=== PATIENT | female | born 2000 | race Caucasian/White ===

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

== ENCOUNTER 2021-08-29 12:20 | Emergency (ER) | payer SELFPAY ==
--- OUTSIDE RECORDS SUMMARY | 2021-08-29 12:24 | XMS REPORT | Continuity of Care Document ---
:2000 Author Organization [facility] t Address [address] [place] [address] Care Team Providers Name Role Phone Elyssa Clement Primary Care Physician Vin BELL S Attending Clinician TOBI Attending Clinician Unavailable Pato MCGUIRE F Attending Clinician Doctor Unassigned, Name Attending Clinician Unavailable YOLY ESPARZA Attending Clinician Unavailable Elyssa Clement Attending Clinician Tobi RODRIGEZ Attending Clinician Yoly Esparza MD Attending Clinician Payers Payer Name Policy Type Policy Number Effective Date Expiration Date S ource Problems Condition Condition Condition Status Onset Resolution Last Treating Co mments Source Name Details Category Date Date Treatment Clinician Date Tinea Tinea Disease Active Univers corporis corporis 4-11 ity of 00:00: [address] Pyelonephr Pyelonephr Disease Active U dianeers itis itis 2-20 ity of 00:00: [address] Excessive Excessive Disease Active Uni vers 2-26 it y of bleeding bleeding 00:00: [address] 40 weeks 40 weeks Disease Active 2017- Unive rs gestation gestation 2-13 ity of of of 00:: [place] [address] [place] [address] Normal Normal Disease Active 2017- Univers labor and labor and 2-13 ity of delivery delivery 00:00: [address] Supervisio Supervisio Disease Active 2016-07 U nivers n of n of 0-09 ity of high-risk high[place] young of young Branch primigravi primigravi da da High risk High risk Disease Active 2016-07 Uni vers teen teen 0-09 [place] 00 Med[place] an[place] trimester trimester Bran ch Disease Active 2016-07 Unive rs care care 0-09 ity of insufficie insuffic[place] 00 Me dical trimester trimester Bran ch Allergies, Adverse Reactions, Alerts Allergy Allergy Status Severity Reaction(s) Onset Inactive Treating Comm ents Source Name Type Date Date Clinician Peanut Propensi Active Swelling 2018-07 Univer s Butter ty to 04 ity of Flavor adverse 00:00: [place] reaction 00 Medical s [place] PEANUT DRUG Active Swelling 2018-07 Univers BUTTER INGREDI 04 ity of FLAVOR 00:00: [place] 00 Medical Branch NO KNOWN Drug Active Univers ALLERGIE Class ity of S [facility] Social History Social Habit Start Date Stop Date Quantity Comments Source Exposure to Unable to assess Univers ity of SARS-CoV-2 [facility] [place] [facility] (event) [place] Tobacco use and 2020-06-21 2020-06-21 Never used Universit y of exposure 00:00:00 00:00:00 [facility] Alcohol intake 2020-06-21 2020-06-21 Current drinker [facility] rsity of 00:00:00 00:00:00 of alcohol [facility] [place] [facility] (finding) [place] Alcohol Comment 2019-04-25 2019-04-25 rare Universit y of 00:00:00 00:00:00 [facility] Sex Assigned At 2000 2000 Universit y of 00:00:00 00:00:00 [facility] Smoking Status Start Date Stop Date Source Never smoker [facility] Medical Branch Medications Ordered Filled Start Stop Current Ordering Indication Dosage Frequency Signature Comments Components Source Medication Medication Date Date Medication? Clinician (SIG) Name Name ondansetron 2020-0 2020- No 4mg 4 mg, Univ ers (ZOFRAN-ODT 03-28 Oral, ity of ) 20:15: 19:11 ONCE, 1 [place] disintegrat 00 :00 dose, Sat Med ical ing tablet 03/28/21 at [facility] 4 mg 1515, Routine ondansetron No 4mg 4 mg, Univ ers (ZOFRAN-ODT 03-28 Oral, ity of ) 20:15: 19:11 ONCE, 1 [place] disintegrat 00 :00 dose, Sat Med ical ing tablet 03/28/21 at [facility] 4 mg 1515, Routine ondansetron Yes [id number] 4mg Take 1 Univers (ZOFRAN 9-11 tablet by ity of ODT) 4 mg 00:00: mouth [place] disintegrat 00 every 8 Medic al ing tablet (eight) Branch hours as needed for Nausea and Vomiting (N/V). ondansetron Yes [id number] 4mg Take 1 Univers (ZOFRAN 9-11 tablet by ity of ODT) 4 mg 00:00: mouth [place] disintegrat 00 every 8 Medic al ing tablet (eight) Branch hours as needed for Nausea and Vomiting (N/V). acetaminoph 2019-07- No 1000mg 1,000 mg, Univers en 08-22 Oral, ity of (TYLENOL) 19:15: 19:02 ONCE, [place] tablet [place] :[place] dose, Sat Medical 1,000 mg 06/21/20 at [facility] h 1315, Routine ibuprofen 2019-07 No 600mg 600 mg, Uni vers (IBU) 08-22 Oral, ity of tablet 600 19:15: 19:02 ONCE, 1 [place] mg 00 :00 dose, [facility] Medical 06/21/20 at Branch 1315, SHAMAR ibuprofen 2019-07 Yes [id number] 600mg Take 1 Univers 600 mg 2-05 [id number] tablet by ity of tablet 00:00: mouth [place] 00 every 6 Medical (six) Branch hours as needed for Pain (scale 4-6). traMADoL 50 2019-07 Yes [id number] 50mg Take 1 Univ ers mg tablet 2-05 tablet by ity o f 00:00: mouth [place] 00 every 6 Medical (six) Branch hours as needed for Pain (scale 7-10). Indication s: acute pain ibuprofen 2019-07 Yes [id number] 600mg Take 1 Univers 600 mg 2-05 [id number] tablet by ity of tablet 00:00: mouth [place] 00 every 6 Medical (six) Branch hours as needed for Pain (scale 4-6). traMADoL 50 2019-07 Yes [id number] 50mg Take 1 Univ ers mg tablet 2-05 tablet by ity o f 00:00: mouth [place] 00 every 6 Medical (six) Branch hours as needed for Pain (scale 7-10). Indication s: acute pain ibuprofen 2019-07 Yes [id number] 600mg Take 1 Univers 600 mg 2-05 [id number] tablet by ity of tablet 00:00: mouth [place] 00 every 6 Medical (six) Branch hours as needed for Pain (scale 4-6). traMADoL 50 2019-07 Yes [id number] 50mg Take 1 Univ ers mg tablet 2-05 tablet by ity o f 00:00: mouth [place] 00 every 6 Medical (six) Branch hours as needed for Pain (scale 7-10). Indication s: acute pain phenazopyri 2018-07 Yes [id number] 200mg Take 1 Univers dine 200 mg 1-08 tablet by ity of tablet 00:00: mouth 3 [place] 00 (three) Medical times Branch daily. ondansetron 2018-07 Yes [id number] 4mg Take 1 Univers (ZOFRAN 1-08 tablet by ity of ODT) 4 mg 00:00: mouth [place] disintegrat 00 every 8 Medic al ing tablet (eight) Branch hours as needed for Nausea and Vomiting (N/V). phenazopyri 2018-07 Yes [id number] 200mg Take 1 Univers dine 200 mg 1-08 tablet by ity of tablet 00:00: mouth 3 [place] 00 (three) Medical times Branch daily. ondansetron 2018-07 Yes [id number] 4mg Take 1 Univers (ZOFRAN 1-08 tablet by ity of ODT) 4 mg 00:00: mouth [place] disintegrat 00 every 8 Medic al ing tablet (eight) Branch hours as needed for Nausea and Vomiting (N/V). phenazopyri 2018-07 Yes [id number] 200mg Take 1 Univers dine 200 mg 1-08 tablet by ity of tablet 00:00: mouth 3 [place] 00 (three) Medical times Branch daily. phenazopyri 2018-07 Yes [id number] 200mg Take 1 Univers dine 200 mg 1-08 tablet by ity of tablet 00:00: mouth 3 [place] 00 (three) Medical times Branch daily. ondansetron 2018-07- No [id number] 4mg Take 1 Univers (ZOFRAN 07-25 tablet by ity of ODT) 4 mg 00:00: 00:00 mouth [place] disintegrat 00 :00 every 8 Medic al ing tablet (eight) Branch hours as needed for Nausea and Vomiting (N/V). ondansetron 2018-07- No [id number] 4mg Take 1 Univers (ZOFRAN 07-25 tablet by ity of ODT) 4 mg 00:00: 00:00 mouth [place] disintegrat 00 :00 every 8 Medic al ing tablet (eight) Branch hours as needed for Nausea and Vomiting (N/V). fluoxetine 2018-07 Yes Take by Uni vers HCl (PROZAC 1-04 mouth. ity of ORAL) 18:54: [address] fluoxetine 2018-07 Yes Take by Uni vers HCl (PROZAC 1-04 mouth. ity of ORAL) 18:54: [address] fluoxetine 2018-07 Yes Take by Uni vers HCl (PROZAC 1-04 mouth. ity of ORAL) 18:54: [address] fluoxetine 2018-07 Yes Take by Uni vers HCl (PROZAC 1-04 mouth. ity of ORAL) 18:54: [address] fluticasone 2018-07 Yes [id number] 2{spray Use 2 Univers propionate 1-04 } Sprays in ity of 50 00:00: each [place] mcg/actuati 00 nostril Medic al on nasal daily. [place] spray fluticasone 2018-07 Yes [id number] 2{spray Use 2 Univers propionate 1-04 } Sprays in ity of 50 00:00: each [place] mcg/actuati 00 nostril Medic al on nasal daily. [place] spray fluticasone 2018-07 Yes [id number] 2{spray Use 2 Univers propionate 1-04 } Sprays in ity of 50 00:00: each [place] mcg/actuati 00 nostril Medic al on nasal daily. [place] spray fluticasone 2018-07 Yes [id number] 2{spray Use 2 Univers propionate 1-04 } Sprays in ity of 50 00:00: each [place] mcg/actuati 00 nostril Medic al on nasal daily. [place] spray ARIPiprazol 2018-07 Yes 10mg Take 10 mg Univers e 10 mg 1-01 by mouth ity of tablet 00:00: daily. [facility] ARIPiprazol 2018-07 Yes 10mg Take 10 mg Univers e 10 mg 1-01 by mouth ity of tablet 00:00: daily. [facility] ARIPiprazol 2018-07 Yes 10mg Take 10 mg Univers e 10 mg -01 by mouth ity of tablet 00:00: daily. [place] [facility] ARIPiprazol 2018-07 Yes 10mg Take 10 mg Univers e 10 mg -01 by mouth ity of tablet 00:00: daily. [place] [facility] estradiol 1 2018-07 Yes [id number] 1mg Take 1 Univers mg tablet 0-09 tablet by ity o f 00:00: mouth 00 daily. [facility] estradiol 1 2018-07 Yes [id number] 1mg Take 1 Univers mg tablet 0-09 tablet by ity o f 00:00: mouth 00 daily. [facility] estradiol 1 2018-07 Yes [id number] 1mg Take 1 Univers mg tablet 0-09 tablet by ity o f 00:00: mouth 00 daily. [facility] estradiol 1 2018-07 Yes [id number] 1mg Take 1 Univers mg tablet 0-09 tablet by ity o f 00:00: mouth 00 daily. [facility] SERTraline Yes [id number] Take 1 tab Univers (ZOLOFT) 50 9-25 po daily ity of mg tablet 00:00: [address] SERTraline Yes [id number] Take 1 tab Univers (ZOLOFT) 50 9-25 po daily ity of mg tablet 00:00: [address] SERTraline Yes [id number] Take 1 tab Univers (ZOLOFT) 50 9-25 po daily ity of mg tablet 00:00: [address] SERTraline Yes [id number] Take 1 tab Univers (ZOLOFT) 50 9-25 po daily ity of mg tablet 00:00: [address] SERTraline Yes [id number] Take 1/2 Univers (ZOLOFT) 50 8-20 tab po ity of mg tablet 00:00: daily x 1 [place] 00 week, then Medical [facility] Branch to 1 tab po daily SERTraline Yes [id number] Take 1/2 Univers (ZOLOFT) 50 8-20 tab po ity of mg tablet 00:00: daily x 1 [place] 00 week, then [facility] to 1 tab po daily clindamycin 2019- No [id number] 1{appli Insert 1 Univers 2 % cream 03-05 cator} Applicator i ty of 00:00: 04:59 into [place] 00 :00 vagina at [facility] for 7 days. clindamycin 2019- No [id number] 1{appli Insert 1 Univers 2 % cream 03-05 cator} Applicator i ty of 00:00: 04:59 into [place] 00 :00 vagina at [facility] for 7 days. clindamycin 2019- No [id number] 1{appli Insert 1 Univers 2 % cream 03-05 cator} Applicator i ty of 00:00: 04:59 into [place] 00 :00 vagina at [facility] for 7 days. clindamycin 2019- No [id number] 1{appli Insert 1 Univers 2 % cream 03-05 cator} Applicator i ty of 00:00: 04:59 into [place] 00 :00 vagina at [facility] for 7 days. etonogestre Yes 68mg 68 mg by Un jazlyn l 6-24 Subdermal ity of (NEXPLANON) 21:21: route once [place] 68 mg 07 now. Medical implant Branch etonogestre Yes 68mg 68 mg by Un jazlyn l 6-24 Subdermal ity of (NEXPLANON) 21:21: route once [place] 68 mg 07 now. Medical implant Branch etonogestre Yes 68mg 68 mg by Un jazlyn l 6-24 Subdermal ity of (NEXPLANON) 21:21: route once [place] 68 mg 07 now. Medical implant Branch etonogestre Yes 68mg 68 mg by Un jazlyn l 6-24 Subdermal ity of (NEXPLANON) 21:21: route once [place] 68 mg 07 now. Medical implant Branch etonogestre Yes 68mg 68 mg by Un jazlyn l 6-24 Subdermal ity of (NEXPLANON) 21:21: route once [place] 68 mg 07 now. Medical implant Branch etonogestre Yes 68mg 68 mg by Un jazlyn l 6-24 Subdermal ity of (NEXPLANON) 21:21: route once [place] 68 mg 07 now. Medical implant Branch etonogestre 2018-0 Yes 68mg 68 mg by Un jazlyn l 6-24 Subdermal ity of (NEXPLANON) 21:21: route once [place] 68 mg 07 now. Medical implant Branch etonogestre Yes 68mg 68 mg by Un jazlyn l 6-24 Subdermal ity of (NEXPLANON) 21:21: route once [place] 68 mg 07 now. Medical implant Branch etonogestre Yes 68mg 68 mg by Un jazlyn l 6-24 Subdermal ity of (NEXPLANON) 21:21: route once [place] 68 mg 07 now. Medical implant Branch etonogestre Yes 68mg 68 mg by Un jazlyn l 6-24 Subdermal ity of (NEXPLANON) 21:21: route once [place] 68 mg 07 now. Medical implant Branch etonogestre Yes 68mg 68 mg by Un jazlyn l 6-24 Subdermal ity of (NEXPLANON) 21:21: route once [place] 68 mg 07 now. Medical implant Branch ibuprofen Yes [id number] 800mg Take 1 Univers 800 mg 6-12 tablet by ity of tablet 00:00: mouth [place] 00 every 8 Medical (eight) Branch hours as needed (PAIN). Nitrofurant Yes [id number] 100mg Take 1 Univers oin&Nit. 6-12 capsule by ity o f [place] 00:00: mouth 2 [place] (MACROBID) 00 (two) Medical 100 mg times Branch capsule daily. ibuprofen Yes [id number] 800mg Take 1 Univers 800 mg 6-12 tablet by ity of tablet 00:00: mouth [place] 00 every 8 Medical (eight) Branch hours as needed (PAIN). Nitrofurant Yes [id number] 100mg Take 1 Univers oin&Nit. 6-12 capsule by ity o f [place] 00:00: mouth 2 [place] (MACROBID) 00 (two) Medical 100 mg times Branch capsule daily. ibuprofen Yes [id number] 800mg Take 1 Univers 800 mg 6-12 tablet by ity of tablet 00:00: mouth [place] 00 every 8 Medical (eight) Branch hours as needed (PAIN). Nitrofurant Yes [id number] 100mg Take 1 Univers oin&Nit. 6-12 capsule by ity o f [place] 00:00: mouth 2 [place] (MACROBID) 00 (two) Medical 100 mg times Branch capsule daily. ibuprofen Yes [id number] 800mg Take 1 Univers 800 mg 6-12 tablet by ity of tablet 00:00: mouth [place] 00 every 8 Medical (eight) Branch hours as needed (PAIN). Nitrofurant Yes [id number] 100mg Take 1 Univers oin&Nit. 6-12 capsule by ity o f [place] 00:00: mouth 2 [place] (MACROBID) 00 (two) Medical 100 mg times Branch capsule daily. ibuprofen Yes [id number] 800mg Take 1 Univers 800 mg 6-12 tablet by ity of tablet 00:00: mouth [place] 00 every 8 Medical (eight) Branch hours as needed (PAIN). Nitrofurant Yes [id number] 100mg Take 1 Univers oin&Nit. 6-12 capsule by ity o f [place] 00:00: mouth 2 [place] (MACROBID) 00 (two) Medical 100 mg times Branch capsule daily. ibuprofen 2019- No [id number] 800mg Take 1 Univers 800 mg 6-12 08-20 tablet by ity of tablet 00:00: 00:00 mouth [place] 00 :00 every 8 Medical (eight) Branch hours as needed (PAIN). Nitrofurant 2019- No [id number] 100mg Take 1 Univers oin&Nit. 6-12 08-20 capsule by ity of [place] 00:00: 00:00 mouth 2 [place] (MACROBID) 00 :00 (two) Medical 100 mg times Branch capsule daily. ibuprofen 2019- No [id number] 800mg Take 1 Univers 800 mg 6-12 08-20 tablet by ity of tablet 00:00: 00:00 mouth [place] 00 :00 every 8 Medical (eight) Branch hours as needed (PAIN). Nitrofurant 2019- No [id number] 100mg Take 1 Univers oin&Nit. 6-12 08-20 capsule by ity of [place] 00:00: 00:00 mouth 2 [place] (MACROBID) 00 :00 (two) Medical 100 mg times Branch capsule daily. metroNIDAZO 2018- Yes [id number] 500mg Take 1 Univers LE 500 mg 6-11 tablet by ity o f tablet 00:00: mouth [place] 00 every 12 Medical (twelve) Branch hours. metroNIDAZO 2018- Yes [id number] 500mg Take 1 Univers LE 500 mg 6-11 tablet by ity o f tablet 00:00: mouth [place] 00 every 12 Medical (twelve) Branch hours. metroNIDAZO 2018- Yes [id number] 500mg Take 1 Univers LE 500 mg 6-11 tablet by ity o f tablet 00:00: mouth [place] 00 every 12 Medical (twelve) Branch hours. metroNIDAZO 2018- Yes [id number] 500mg Take 1 Univers LE 500 mg 6-11 tablet by ity o f tablet 00:00: mouth [place] 00 every 12 Medical (twelve) Branch hours. metroNIDAZO 2018- Yes [id number] 500mg Take 1 Univers LE 500 mg 6-11 tablet by ity o f tablet 00:00: mouth [place] 00 every 12 Medical (twelve) Branch hours. metroNIDAZO 2019- No [id number] 500mg Take 1 Univers LE 500 mg 6-11 08-20 tablet by ity of tablet 00:00: 00:00 mouth [place] 00 :00 every 12 Medical (twelve) Branch hours. metroNIDAZO 2019- No [id number] 500mg Take 1 Univers LE 500 mg 6-11 08-20 tablet by ity of tablet 00:00: 00:00 mouth [place] 00 :00 every 12 Medical (twelve) Branch hours. estradiol 1 Yes 1mg Take 1 Univ ers mg tablet 5-07 tablet by ity o f 00:00: mouth [place] 00 daily. Medical Branch estradiol 1 2018- Yes 1mg Take 1 Univ ers mg tablet 5-07 tablet by ity o f 00:00: mouth [place] 00 daily. Medical Branch estradiol 1 Yes 1mg Take 1 Univ ers mg tablet 5-07 tablet by ity o f 00:00: mouth [place] 00 daily. Medical Branch estradiol 1 Yes 1mg Take 1 Univ ers mg tablet 5-07 tablet by ity o f 00:00: mouth [place] 00 daily. Medical Branch estradiol 1 2018- Yes 1mg Take 1 Univ ers mg tablet 5-07 tablet by ity o f 00:00: mouth [place] 00 daily. Medical Branch estradiol 1 2019- No 1mg Take 1 Uni vers mg tablet 5-07 08-20 tablet by ity of 00:00: 00:00 mouth [place] 00 :00 daily. Medical Branch estradiol 1 2019- No 1mg Take 1 Uni vers mg tablet 5-07 08-20 tablet by ity of 00:00: 00:00 mouth [place] 00 :00 daily. Medical Branch ferrous 2017-0 Yes 325mg Take 1 Univers sulfate 325 2-15 tablet by ity of mg (65 mg 00:00: mouth 2 [place] iron) 00 (two) Medical tablet times Branch daily. ferrous 2018-0 Yes 325mg Take 1 Univers sulfate 325 2-15 tablet by ity of mg (65 mg 00:00: mouth 2 [place] iron) 00 (two) Medical tablet times Branch daily. ferrous 2017-0 Yes 325mg Take 1 Univers sulfate 325 2-15 tablet by ity of mg (65 mg 00:00: mouth 2 [place] iron) 00 (two) Medical tablet times Branch daily. ferrous 2018-0 Yes 325mg Take 1 Univers sulfate 325 2-15 tablet by ity of mg (65 mg 00:00: mouth 2 [place] iron) 00 (two) Medical tablet times Branch daily. ferrous 2017-0 Yes 325mg Take 1 Univers sulfate 325 2-15 tablet by ity of mg (65 mg 00:00: mouth 2 [place] iron) 00 (two) Medical tablet times Branch daily. ferrous 2017- 2019- No 325mg Take 1 Univer s sulfate 325 2-15 08-20 tablet by it y of mg (65 mg 00:00: 00:00 mouth [place] iron) 00 :00 (two) Medical tablet times Branch daily. ferrous 2017-0 2019- No 325mg Take 1 Univer s sulfate 325 2-15 08-20 tablet by it y of mg (65 mg 00:00: 00:00 mouth 2 [place] iron) 00 :00 (two) Medical tablet times Branch daily. Immunizations Ordered Filled Immunization Date Status Comments [facility] e Immunization Name Name Influenza Virus 2019-04-25 Completed Universit y of Vaccine Quad .5 mL 00:00:00 [place] Medical IM 6+ MO Branch Influenza Virus 2019-04-25 Completed Universit y of Vaccine Quad .5 mL 00:00:00 [place] Medical IM 6+ MO Branch Influenza Virus 2019-04-25 Completed Universit y of Vaccine Quad .5 mL 00:00:00 [place] Medical IM 6+ MO Branch Influenza Virus 2019-04-25 Completed Universit y of Vaccine Quad .5 mL 00:00:00 [place] Medical IM 6+ MO Branch Influenza Virus 2018-11-07 Completed Universit y of Vaccine Quad .5 mL 00:00:00 [place] Medical IM 6+ MO Branch Influenza Virus 2018-11-07 Completed Universit y of Vaccine Quad .5 mL 00:00:00 [place] Medical IM 6+ MO Branch Influenza Virus 2018-11-07 Completed Universit y of Vaccine Quad .5 mL 00:00:00 [place] Medical IM 6+ MO Branch Influenza Virus 2018-11-07 Completed Universit y of Vaccine Quad .5 mL 00:00:00 [place] Medical IM 6+ MO Branch Influenza Virus 2018-11-07 Completed Universit y of Vaccine Quad .5 mL 00:00:00 [place] Medical IM 6+ MO Branch Influenza Virus 2018-11-07 Completed Universit y of Vaccine Quad .5 mL 00:00:00 [place] Medical IM 6+ MO Branch Influenza Virus 2018-11-07 Completed Universit y of Vaccine Quad .5 mL 00:00:00 [place] Medical IM 6+ MO Branch Influenza Virus 2018-11-07 Completed Universit y of Vaccine Quad .5 mL 00:00:00 [place] Medical 6+ MO Branch Influenza Virus 2018-11-07 Completed Universit y of Vaccine Quad .5 mL 00:00:00 [place] Medical IM 6+ MO Branch Influenza Virus 2018-11-07 Completed Universit y of Vaccine Quad .5 mL 00:00:00 [place] Medical IM 6+ MO Branch Influenza Virus 2018-11-07 Completed Universit y of Vaccine Quad .5 mL 00:00:00 [place] Medical 6+ MO Branch Tdap 2017-06-13 Completed University of 00:00:00 [facility] Tdap 2017-06-13 Completed University of 00:00:00 [facility] Tdap 2017-06-13 Completed University of 00:00:00 [facility] Tdap 2017-06-13 Completed University of 00:00:00 [facility] Tdap 2017-06-13 Completed University of 00:00:00 [facility] TDAP 2017-06-13 Completed University of 00:00:00 [facility] TDAP 2017-06-13 Completed University of 00:00:00 [facility] TDAP 2017-06-13 Completed University of 00:00:00 [facility] TDAP 2017-06-13 Completed University of 00:00:00 [facility] Tdap 2017-06-13 Completed University of 00:00:00 [facility] Tdap 2017-06-13 Completed University of 00:00:00 [facility] Influenza Virus 2017-05-23 Completed Universit y of Vaccine Quad IM 3+ 00:00:00 [facility] Influenza Virus 2017-05-23 Completed Universit y of Vaccine Quad IM 3+ 00:00:00 [facility] Influenza Virus 2017-05-23 Completed Universit y of Vaccine Quad IM 3+ 00:00:00 [facility] Influenza Virus 2017-05-23 Completed Universit y of Vaccine Quad IM 3+ 00:00:00 [facility] Influenza Virus 2017-05-23 Completed Universit y of Vaccine Quad IM 3+ 00:00:00 [facility] Influenza Virus 2017-05-23 Completed Universit y of Vaccine Quad IM 3+ 00:00:00 [facility] Influenza Virus 2017-05-23 Completed Universit y of Vaccine Quad IM 3+ 00:00:00 [facility] Influenza Virus 2017-05-23 Completed Universit y of Vaccine Quad IM 3+ 00:00:00 [facility] Influenza Virus 2017-05-23 Completed Universit y of Vaccine Quad IM 3+ 00:00:00 [facility] Influenza Virus 2017-05-23 Completed Universit y of Vaccine Quad IM 3+ 00:00:00 [facility] Influenza Virus 2017-05-23 Completed Universit y of Vaccine Quad IM 3+ 00:00:00 [facility] Vital Signs Vital Name Observation Time Observation Value Comments Source Systolic blood 2021-03-28 19:06:00 108 mm[Hg] Univer sity of pressure [facility] Diastolic blood 2021-03-28 19:06:00 70 mm[Hg] Unive rsity of pressure [facility] Heart rate 2021-03-28 19:06:00 73 /min Universi ty of [facility] Body temperature 2021-03-28 19:06:00 37.44 [place] Univ ersity of [place] [facility] Respiratory rate 2021-03-28 19:06:00 20 /min Univ ersity of [place] [facility] Body weight 2021-03-28 19:06:00 76.204 kg Universi ty of [place] [facility] Oxygen saturation in 2021-03-28 19:06:00 97 /min University of Arterial blood by [facility] Pulse oximetry Branch Systolic blood 2020-06-21 17:26:00 106 mm[Hg] Univer sity of pressure [place] [facility] Diastolic blood 2020-06-21 17:26:00 53 mm[Hg] Unive rsity of pressure [place] [facility] Heart rate 2020-06-21 17:26:00 65 /min Universi ty of [place] [facility] Body temperature 2020-06-21 17:26:00 36.89 [place] Univ ersity of [place] [facility] Respiratory rate 2020-06-21 17:26:00 18 /min Univ ersity of [place] [facility] Body weight 2020-06-21 17:26:00 65.772 kg Universi ty of [place] [facility] Oxygen saturation in 2020-06-21 17:26:00 100 /min University of Arterial blood by [facility] Pulse oximetry Branch Systolic blood 2019-03-06 19:00:00 104 mm[Hg] Univer sity of pressure [place] [facility] Diastolic blood 2019-03-06 19:00:00 61 mm[Hg] Unive rsity of pressure [place] [facility] Heart rate 2019-03-06 19:00:00 66 /min Universi ty of [place] [facility] Body temperature 2019-03-06 19:00:00 36.78 [place] Univ ersity of [place] [facility] Body height 2019-03-06 19:00:00 154.9 cm Universi ty of [place] [facility] Body weight 2019-03-06 19:00:00 54.432 kg Universi ty of [place] [facility] BMI 2019-03-06 19:00:00 22.67 kg/m2 Universi ty of [place] [facility] Systolic blood 2019-03-01 14:27:00 98 mm[Hg] Univer sity of pressure [place] [facility] Diastolic blood 2019-03-01 14:27:00 60 mm[Hg] Unive [facility]ity [facility] Heart rate 2019-03-01 14:27:00 60 /min [facility] Body temperature 2019-03-01 14:27:00 36.5 [facility] Respiratory rate 2019-03-01 14:27:00 18 /min [facility] Body height 2019-03-01 14:27:00 154.9 cm [facility] Body weight 2019-03-01 14:27:00 55.792 kg [facility] BMI 2019-03-01 14:27:00 23.24 kg/m2 [facility] Procedures Procedure Date / Time Performed Performing Clinician [facility] e ASSIGNMENT OF BENEFITS 2021-03-28 19:37:53 Doctor Unassigned, No [facility] Name Medical Branch COVID-19 (ID NOW RAPID 2021-03-28 19:11:00 Avis Banuelos [facility] TESTING) Medical Branch CONSENT/REFUSAL FOR 2021-03-28 18:59:12 Doctor Unassigned, No [facility] Branch TREATMENT POCT TEST 2020-06-21 19:01:00 Charlene Whyte [facility] XR ANKLE 3+ VW RIGHT 2020-06-21 18:06:[address] [facility] XR FOOT 3+ VW RIGHT 2020-06-21 18:06:[address] [facility] CONSENT/REFUSAL FOR 2020-06-21 17:14:39 Doctor Unassigned, No [facility] AND Name Medical Branch TREATMENT NOTICE OF PRIVACY 2020-06-21 17:14:21 Doctor Unassigned, No [facility] Medical [place] POCT TEST 2019-03-06 19:44:[address] [facility] POCT URINALYSIS W/O 2019-03-01 00:00:00 Karla Britton [facility] SPECIFIC GRAVITY Medical Branch Encounters Start End Encounter Admission Attending Care Care Encounter Source Date/Time Date/Time Type Type Clinicians Facility Department ID 2021-05-18 Emergency [facility] [id number] [facility]-16 Emergency [facility] [id number] Univers 09:26:29 ity of [facility] 2021-03-28 2021-03-28 Emergency [facility] [id number] Univers 14:12:00 16:13:00 Avis S [place] [id number] i ty of [place] [id number] [facility] [id number] [address] 2020-08-20 2020-08-20 Outpatient Phani BRITTON [facility] [id number] Univers 14:30:00 14:30:00 [facility] [id number] [facility] 2020-08-20 2020-08-20 Outpatient Phani BRITTON [facility] [id number] Univers 14:30:00 14:30:00 KARLA [facility] 2020-07-31 2020-07-31 Outpatient Phani BRITTON [facility] [id number] Univers 13:00:00 13:00:00 KARLA [id number] [facility] 2020-07-31 2020-07-31 Outpatient Phani BRITTON [facility] [id number] Univers 13:00:00 13:00:00 [facility] 2020-06-21 2020-06-21 Emergency [facility] [id number] Univers 11:46:00 13:39:00 Charlene Corral [id number] ity of [place] [id number] [facility] [id number] [address] 2020-06-21 2020-06-21 Orders Doctor DAVI [id number] Univers 00:00:00 00:00:00 Only Unassigned, IESHA [id number] [facility] [id number] [place] [id number] [address] 2020-05-28 2020-05-28 Outpatient Phani BRITTON [facility] [id number] Univers 13:30:00 13:30:00 KARLA [id number] [facility] 2020-05-28 2020-05-28 Outpatient Phani BRITTON [facility] [id number] Univers 13:30:00 13:30:[address] [facility] 2020-05-01 2020-05-01 Outpatient R CAROLYNN ESPARZA [facility] [id number] Univers 09:30:00 09:30:00 [id number] ity of [facility] 2020-05-01 2020-05-01 Outpatient R CAROLYNN ESPARZA [facility] [id number] Univers 09:30:00 09:30:00 ity of [facility] 2020-04-30 2020-04-30 Outpatient R TOBI [facility] [id number] Univers 08:30:00 08:30:[id number] [facility] 2020-04-30 2020-04-30 Outpatient R TOBI [facility] [id number] Univers 08:30:00 08:30:00 KARLA [facility] 2020-04-28 2020-04-28 Outpatient R CAROLYNN ESPARZA [facility] [id number] Univers 15:15:00 15:15:[id number] [facility] 2020-04-28 2020-04-28 [facility] [id number] Univers 15:15:00 15:15:[address] [facility] 2020-04-25 2020-04-25 Outpatient R TOBI [facility] [id number] Univers 10:30:00 10:30:00 KARLA [facility] 2020-04-03 2020-04-03 Outpatient CAROLYNN WILSON [facility] [id number]-20 Univers 09:30:00 09:30:00 [id number] [facility] 2019-03-06 2019-03-06 Office [facility] [id number] Univers 13:43:15 14:49:14 Visit Marley Calderón [id number] [place] [id number] [place] as Niels [id number] [address] Office [facility] 2019-03-05 2019-03-05 Case Tobi [facility] [id number] Univers 00:00:00 00:00:00 Management Karla [place] [id number] [id number] [id number] [place] dicid nal 134 [facility] 2019-03-05 2019-03-05 Telephone Carolynn Esparza [facility] [id number] Univers 00:00:00 00:00:00 Yoly [place] [id number] [id number] [id number] [address] 2019-03-01 2019-03-01 Office Tobi [facility] [id number] [facility] 08:58:15 09:51:29 Visit Karla [place] [id number] [id number] [id number] [address] Results Test Description Test Time Test Comments Results Result Comments Source COVID-19 (ID NOW RAPID TESTING) 2021-03-28 20:26:42 Test Item Value Reference Range Interpretation Comme nts SARS-CoV-2 Rapid ID NOW (test code Not Detected Not Detected = 24015-1) ENE (test code = ENE) ID NOW COVID-19 Assay is an isothermal nucleic acid amplification test intended for the qualitative detection of nucleic acid from SARS-CoV-2 viral RNA in nasopharyngeal (SPANISH INTERPRETER/TRANSLATOR) specimens. It is used under Emergency Use Authorization (EUA) by FDA. The limit of detection (LOD) of the assay is 125 Genome Equivalents/mL. A positive result is indicative of the presence of SARS-CoV-2 RNA. ?Clinical correlation with patient history and other diagnostic information is necessary to determine patient infection status. A negative (Not Detected) result does not preclude SARS-CoV-2 infection. In patients with a high suspicion of SARS-CoV-2 infection, negative results should be treated as presumptive negative and a new specimen should be tested with alternative nucleic acid amplification molecular test. Invalid: Please collect a new specimen for repeat patient testing if clinically indicated. Lab Interpretation (test code = Normal 63939-2) [facility] NOW RAPID TESTING)2021-03-28 20:26:42 Test Item Value Reference Range Interpretation Comments SARS-CoV-2 Rapid ID NOW Not Detected Not Detected (test code = 73380-8) ENE (test code = ENE) ID NOW COVID-19 Assay is an isothermal nucleic acid amplification test intended for the qualitative detection of nucleic acid from SARS-CoV-2 viral RNA in nasopharyngeal (SPANISH INTERPRETER/TRANSLATOR) specimens. It is used under Emergency Use Authorization (EUA) by FDA. The limit of detection (LOD) of the assay is 125 Genome Equivalents/mL. A positive result is indicative of the presence of SARS-CoV-2 RNA. ?Clinical correlation with patient history and other diagnostic information is necessary to determine patient infection status. A negative (Not Detected) result does not preclude SARS-CoV-2 infection. In patients with a high suspicion of SARS-CoV-2 infection, negative results should be treated as presumptive negative and a new specimen should be tested with alternative nucleic acid amplification molecular test. Invalid: Please collect a new specimen for repeat patient testing if clinically indicated. Lab Interpretation Normal (test code = 11395-7) [facility] [id number] 19:01:00 Test Item Value Reference Range Interpretation Comments POCT PREG (test code = 1605) negative On board controls acceptable with positive C Line (test code = 3574) POCT PREG LOT # (test code = 3575) [id number] POCT PREG TEST DATE (test 10-15-2021 code = 3576) Lab Interpretation (test code = Normal 67384-5) [facility] Hospital[facility] 3+ VW [id number] 18:26:05 Mild alteration of the ankle mortise which may relate to ligamentousincompetency with lateral swelling. No acute fractures. EXAM: XR FOOT 3+ VW RIGHT, EXAM: XR ANKLE 3+ VW RIGHT HISTORY: pain and tenderness COMPARISON: None FINDINGS: Imaging of the foot and ankle demonstrates mild widening of the lateraltibial talar joint with with varus angulation. Borderline syndesmoticwidening is seen. No effusion ?is seen at the ankle. Minimal lateral ankleswelling is seen. Minimal plantar calcaneal enthesophyte formation ispresent. A small plantar calcaneal enthesophyte is present. Bipartitetibial sided hallux sesamoid morphology is present. [facility], Radiant Results Inft User - 06/21/2020 12:27 PM CSTEXAM:XR FOOT 3+ VW RIGHT,EXAM:XR ANKLE 3+ VW RIGHTHISTORY:pain and tenderness COMPARISON:NoneFINDINGS: Imaging of the foot and ankle demonstrates mild widening of the lateraltibial talar joint with with varus angulation. Borderline syndesmoticwidening is seen. No effusion is seen at the ankle. Minimal lateral ankleswelling is seen. Minimal plantar calcaneal enthesophyte formation ispresent. A small plantar calcaneal enthesophyte is present. Bipartitetibial sided hallux sesamoid morphology is present.IMPRESSIONMild alteration of the ankle mortise which may relate to ligamentousincompetency with lateral swell ing.No acute fractures.[facility] 3+ VW RIGHT 2020-06-21 18:26:05 Mild alteration of the ankle mortise which may relate to ligamentousincompetency with lateral swelling. No acute fractures. EXAM: XR FOOT 3+ VW RIGHT, EXAM: XR ANKLE 3+ VW RIGHT HISTORY: pain and tenderness COMPARISON: None FINDINGS: Imaging of the foot and ankle demonstrates mild widening of the lateraltibial talar joint with with varus angulation. Borderline syndesmoticwidening is seen. No effusion ?is seen at the ankle. Minimal lateral ankleswelling is seen. Minimal plantar calcaneal enthesophyte formation ispresent. A small plantar calcaneal enthesophyte is present. Bipartitetibial sided hallux sesamoid morphology is present. [facility] [[email or web address]], Radiant Results Inft User - 06/21/2020 12:27 PM CSTEXAM:XR FOOT 3+ VW RIGHT,EXAM:XR ANKLE 3+ VW RIGHTHISTORY:pain and tenderness COMPARISON:NoneFINDINGS: Imaging of the foot and ankle demonstrates mild widening of the lateraltibial talar joint with with varus angulation. Borderline syndesmoticwidening is seen. No effusion is seen at the ankle. Minimal lateralankleswelling is seen. Minimal plantar calcaneal enthesophyte formation ispresent. A small plantar calcaneal enthesophyte is present. Bipartitetibial sided hallux sesamoid morphology is present.IMPRESSI ONMild alteration of the ankle mortise which may relate to ligamentousincompetency with lateral swelling.No acute fractures.[facility] [id number] 19:48:00 Test Item Value Reference Range Interpretation Comments POCT PREG (test code = 1605) Negative On board controls acceptable with Yes C Line (test code = 3574) POCT PREG LOT # (test code = 3575) POCT PREG TEST DATE (test 10/07/2019 code = 3576) Lab Interpretation (test code = Normal 55448-4) [facility] [id number] 19:48:00 Test Item Value Reference Range Interpretation Comments POCT PREG (test code = 1605) Negative On board controls acceptable with Yes C Line (test code = 3574) POCT PREG LOT # (test code = 3575) POCT PREG TEST DATE (test 10/07/2019 code = 3576) Lab Interpretation (test code = Normal 90390-7) [facility] URINALYSIS W/O SPECIFIC [id number] 14:38:00 Test Item Value Reference Range Interpretation Comments POCT PH U (test code = 3254) 5 mg/dl 5-8 POCT U LEUK EST (test code = negative Negative - Negative 3263) POCT U NIT (test code = 3262) negative Negative - Negative POCT U PROT (test code = 3259) negative Negative - Negative POCT U GLU (test code = 3256) negative Negative - Negative POCT U KETONE (test code = 3258) negative Negative - Negative POCT U BLD (test code = 3257) negative Negative - Negative [facility] URINALYSIS W/O SPECIFIC [id number] 14:38:00 Test Item Value Reference Range Interpretation Comments POCT PH U (test code = 3254) 5 mg/dl 5-8 POCT U LEUK EST (test code = negative Negative - Negative 3263) POCT U NIT (test code = 3262) negative Negative - Negative POCT U PROT (test code = 3259) negative Negative - Negative POCT U GLU (test code = 3256) negative Negative - Negative POCT U KETONE (test code = 3258) negative Negative - Negative POCT U BLD (test code = 3257) negative Negative - Negative [facility] URINALYSIS W/O SPECIFIC [id number] 14:38:00 Test Item Value Reference Range Interpretation Comments POCT PH U (test code = 3254) 5 mg/dl 5-8 POCT U LEUK EST (test code = negative Negative - Negative 3263) POCT U NIT (test code = 3262) negative Negative - Negative POCT U PROT (test code = 3259) negative Negative - Negative POCT U GLU (test code = 3256) negative Negative - Negative POCT U KETONE (test code = 3258) negative Negative - Negative POCT U BLD (test code = 1067) negative Negative - Negative [facility]
[2021-08-29] MEDS ORDERED: METOCLOPRAMIDE 10 MG/2mL INJ ONE (12:53)
[2021-08-29] MEDS ORDERED: DIPHENHYDRAMINE 50 MG/ML VIAL ONE (12:54)
[2021-08-29] MEDS ORDERED: NA CHLORIDE 0.9% 1,000 ML ONE (12:54)
[2021-08-29 13:10] LABS: Urine Blood Trace-intact (Negative); Urine Glucose Negative (Negative); Urine Protein Negative (Negative); Urine pH 6.5 (5.0-7.0)
[2021-08-29 13:12] LABS: Absolute Lymphocytes (CBC) 1.2 K/uL (0.7-4.9); Hematocrit 41.6 % (36.0-45.0); Lymphocytes % 15.7 % (15.3-44.8); MPV 8.9 fL (7.6-11.3); RBC Red Blood Cell Count 4.81 M/uL (3.86-4.86)
[2021-08-29 13:48] LABS: ALT/SGPT 18 U/L (12-78); AST/SGOT 12 U/L (15-37); Albumin 3.8 g/dL (3.4-5.0); Alkaline Phosphatase 69 U/L (45-117); BUN Blood Urea Nitrogen 6 mg/dL (7-18); Bicarbonate 23 mmol/L (21-32); Bilirubin Direct < 0.1 mg/dL (0-0.2); Bilirubin Total 0.4 mg/dL (0.2-1.0); Glucose Level 78 mg/dL (74-106); Lipase 63 U/L (73-393); Potassium 3.8 mmol/L (3.5-5.1); Protein, Total 7.5 g/dL (6.4-8.2); Sodium Level 136 mmol/L (136-145)
--- NOTE | 2021-08-29 15:45 | EDPHYS ---
Physician Documentation [facility] Name: Mckenzie Wang Age: 21 yrs Sex: Female : 2000 Arrival Date: 08/29/2021 Time: 12:23 Bed 17 Private MD: ED Physician Chris Jay HPI: 08/29 12:47 This 21 yrs old Female presents to ER via Ambulatory with complaints of Vomiting, 9 jmm Weeks . 12:47 The patient presents to the emergency department with nausea, vomiting. Onset: The jmm symptoms/episode began/occurred gradually, 1 week(s) ago. Possible causes: . The symptoms are aggravated by nothing. The symptoms are alleviated by nothing. Associated signs and symptoms: Pertinent negatives: abdominal pain, dysuria, fever, vaginal discharge. This is a 21-year-old female approximately 9 weeks the presents emerged department with complaints of vomiting beginning about a week ago. Patient denies diarrhea. Denies abdominal pain, denies vaginal discharge or bleeding.. 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 - Social history:: Smoking status: Patient denies any tobacco usage or history of. ROS: 12:47 Constitutional: Negative for fever, chills, and weight loss, Cardiovascular: Negative jmm for chest pain, palpitations, and edema, Respiratory: Negative for shortness of breath, cough, wheezing, and pleuritic chest pain. 12:47 Abdomen/GI: Positive for vomiting. 12:47 All other systems are negative. Exam: 12:47 Constitutional: This is a well developed, well nourished patient who is awake, alert, jmm and in no acute distress. Head/Face: atraumatic. Eyes: EOMI, no conjunctival erythema appreciated ENT: Moist Mucus Membranes Neck: Trachea midline, Supple Chest/axilla: Normal chest wall appearance and motion. Cardiovascular: Regular rate and rhythm. No edema appreciated Respiratory: Normal respirations, no respiratory distress appreciated Abdomen/GI: Non distended, soft Back: Normal ROM Skin: General appearance color normal MS/ Extremity: Moves all extremities, no obvious deformities appreciated, no edema noted to the lower extremities Neuro: Awake and alert Psych: Behavior is normal, Mood is normal, Patient is cooperative and pleasant Vital Signs: 12:31 BP 110 / 62; Pulse 59; Resp 18; Temp 97.9; Pulse Ox 100% on R/A; Weight 77.11 kg; ph Height 5 ft. 1 in. (154.94 cm); 12:31 Body Mass Index 32.12 (77.11 kg, 154.94 cm) ph MDM: 12:47 Patient medically screened. [facility] 15:41 Data reviewed: vital signs, nurses notes. Counseling: I had a detailed discussion with ovidio the patient and/or guardian regarding: the historical points, exam findings, and any diagnostic results supporting the discharge/admit diagnosis, the need for outpatient follow up, to return to the emergency department if symptoms worsen or persist or if there are any questions or concerns that arise at home. ED course: Patient states that she feels much better. Patient is advised to follow-up with WET WHEELER otherwise given strict return precautions. Patient understood agrees plan of care.. 08/29 12:47 Order name: Basic Metabolic Panel; Complete Time: 13:49 [facility] 08/29 12:47 Order name: CBC with Diff; Complete Time: 13:13 [facility] 08/29 12:47 Order name: Hepatic Function; Complete Time: 13:49 [facility] 08/29 12:47 Order name: Lipase; Complete Time: 13:49 [facility] 08/29 13:09 Order name: Urine Dipstick-Ancillary; Complete Time: 13:13 [facility] 08/29 13:10 Order name: Urine --Ancillary (enter results) 08/29 12:47 Order name: IV Saline Lock; Complete Time: 13:10 [facility] 08/29 12:47 Order name: Labs collected and sent; Complete Time: 13:10 [facility] 08/29 12:47 Order name: Urine Dipstick-Ancillary (obtain specimen); Complete Time: 13:10 [facility] 08/29 13:10 Order name: Urine --Ancillary; Complete Time: 14:08 [facility] 08/29 14:08 Order name: PO challenge; Complete Time: 14:41 [facility] Administered Medications: 13:10 Drug: NS 0.9% 1000 ml Route: IV; Rate: 1 bolus; Site: left antecubital; tolliver 13:10 Drug: Reglan (metoCLOPramide) 20 mg Route: IVP; Site: left antecubital; tolliver 13:10 Follow up: Response: No adverse reaction tolliver 13:10 Drug: diphenhydrAMINE 12.5 mg Route: IVP; Site: left antecubital; tolliver 13:10 Follow up: Response: No adverse reaction tolliver Disposition Summary: 08/29/21 15:44 Discharge Ordered Location: Home [facility] Condition: Stable [facility] Diagnosis - Vomiting [facility] Followup: [facility] - With: Private Physician - When: 2 - 3 days - Reason: Recheck today's complaints, Continuance of care, Re-evaluation by your physician Discharge Instructions: - Discharge Summary Sheet [facility] - Vomiting, Adult [facility] Forms: - Medication Reconciliation Form [facility] - Thank You Letter [facility] - Antibiotic Education [facility] - Prescription Opioid Use [facility] Prescriptions: - ondansetron 4 mg Oral tablet,disintegrating - place 1 tablet by TRANSLINGUAL route every 6 hours; 30 tablet; Refills: 0, [facility] Product Selection Permitted - Cephalexin 500 mg Oral Capsule - take 1 capsule by ORAL route every 8 hours for 10 days; 30 capsule; Refills: 0, [facility] Product Selection Permitted Addendum: 08/31/2021 06:27 Co-signature as Attending Physician, Chris Jay MD I agree with the assessment and k plan of care. Signatures: Dispatcher [employer] Chris Barrett MD MD kdr Mickail, Joel, PA PA jmm Hall, Patricia RN RN [facility]ah[facility]ell smiley RN RN
--- NOTE | 2021-08-29 15:45 | ER ---
Nurse's Notes [facility] Name: Mckenzie Wang Age: 21 yrs Sex: Female : 2000 Arrival Date: 08/29/2021 Time: 12:23 Bed 17 Private MD: Diagnosis: Vomiting Presentation: 08/29 12:31 Chief complaint: Patient states: N/V/D x 1 week, also reports mild cramping, no vaginal ph bleeding or urinary symptoms, denies fever, approx 9 weeks . Coronavirus screen: Vaccine status: Patient reports being unvaccinated. diarrhea, nausea, vomiting. Client presents with at least one sign or symptom that may indicate coronavirus-19. Standard/surgical mask placed on the client. Ebola Screen: No symptoms or risks identified at this time. Initial Sepsis Screen: Does the patient meet any 2 criteria? No. Patient's initial sepsis screen is negative. Does the patient have a suspected source of infection? No. Patient's initial sepsis screen is negative. Risk Assessment: Do you want to hurt yourself or someone else? Patient reports no desire to harm self or others. Onset of symptoms was August 29, 2021. 12:31 Method Of Arrival: Ambulatory 12:31 Acuity: ROSA 3 ph Triage Assessment: 16:03 General: Appears in no apparent distress. Behavior is calm, cooperative. GI: Reports tolliver nausea, vomiting. 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 - Social history:: Smoking status: Patient denies any tobacco usage or history of. Screenin:02 Abuse screen: Denies threats or abuse. Denies injuries from another. Nutritional tolliver screening: No deficits noted. Tuberculosis screening: No symptoms or risk factors identified. Fall Risk IV access (20 points). Assessment: 16:02 Pain: Complains of pain in abdomen. GI: Abdomen is non-distended, Reports nausea, tolliver vomiting. Vital Signs: 12:31 BP 110 / 62; Pulse 59; Resp 18; Temp 97.9; Pulse Ox 100% on R/A; Weight 77.11 kg; ph Height 5 ft. 1 in. (154.94 cm); 12:31 Body Mass Index 32.12 (77.11 kg, 154.94 cm) ED Course: 12:23 Patient arrived in ED. rg4 12:29 Chaka Rushing PA is PHCP. [facility] 12:30 Chris Jay MD is Attending Physician. [facility] 12:33 Triage completed. 12:33 Arm band placed on Patient placed in an exam room. 16:02 Patient has correct armband on for positive identification. Bed in low position. tolliver 16:02 No provider procedures requiring assistance completed. Inserted saline lock: 20 gauge tolliver in left antecubital area, using aseptic technique. IV discontinued, intact, Pressure dressing applied. Administered Medications: 13:10 Drug: NS 0.9% 1000 ml Route: IV; Rate: 1 bolus; Site: left antecubital; tolliver 13:10 Drug: Reglan (metoCLOPramide) 20 mg Route: IVP; Site: left antecubital; tolliver 13:10 Follow up: Response: No adverse reaction tolliver 13:10 Drug: diphenhydrAMINE 12.5 mg Route: IVP; Site: left antecubital; tolliver 13:10 Follow up: Response: No adverse reaction tolliver Outcome: 15:44 Discharge ordered by . [facility] 16:02 Discharged to home with family. tolliver 16:02 Condition: good 16:02 Discharge instructions given to patient, Prescriptions given X 2. 16:04 Patient left the ED. tolliver Signatures: Chaka Rushing PA PA jmm Hall, Patricia, RN RN ph Garcia, Rubi rg4 Nell Sales RN RN
[2021-08-29 16:17] VITALS: BP 110/62; TEMP 97.9; O2SAT 100
== END 2021-08-29 16:04 | disposition home or self-care (01) ==
LOC: ER 12:20
DX: O21.9 Vomiting of pregnancy, unspecified (principal); Z3A.09 9 weeks gestation of pregnancy; Z88.6 Allergy status to analgesic agent
CPT/HCPCS: 36415; 80048; 80076; 81003; 81025; 83690; 85025; 96374; 96375; 99283; J1200; J2765; J7030

== ENCOUNTER 2022-01-29 01:56 | Emergency (ER) | payer OTHER ==
[2022-01-29 03:40] LABS: Absolute Lymphocytes (CBC) 0.5 K/uL (0.7-4.9); Hematocrit 36.4 % (36.0-45.0); Lymphocytes % 5.2 % (15.3-44.8); MPV 8.6 fL (7.6-11.3)
[2022-01-29 03:44] LABS: Protime INR 1.04
[2022-01-29 03:59] LABS: ALT/SGPT 19 U/L (12-78); AST/SGOT 13 U/L (15-37); Albumin 2.8 g/dL (3.4-5.0); Alkaline Phosphatase 93 U/L (45-117); BUN Blood Urea Nitrogen 4 mg/dL (7-18); Bicarbonate 26 mmol/L (21-32); Bilirubin Total 0.4 mg/dL (0.2-1.0); Glomerular Filtration Rate 135 ml/min (=/>90); Glucose Level 88 mg/dL (74-106); Potassium 3.4 mmol/L (3.5-5.1); Sodium Level 135 mmol/L (136-145)
[2022-01-29 04:09] LABS: Bilirubin Direct < 0.1 mg/dL (0-0.2)
[2022-01-29 04:50] LABS: Urine Blood Negative (Negative); Urine Glucose Negative (Negative); Urine Protein Negative (Negative); Urine Specific Gravity 1.015 (1.005-1.030)
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
--- NOTE | 2022-01-29 06:45 | EDPHYS ---
Physician Documentation [facility] Name: Mckenzie Wang Age: 21 yrs Sex: Female : 2000 Arrival Date: 01/29/2022 Time: 01:58 Bed 6 Private MD: ED Physician Julius Norton HPI: 01/29 02:25 This 21 yrs old Female presents to ER via Wheelchair with complaints of Fall Injury. 7 02:25 Details of fall: The patient fell from seated position, out of a chair. Onset: The [facility] symptoms/episode began/occurred. 02:25 Onset: The symptoms/episode began/occurred 6 hour(s) ago. mh7 02:25 Associated injuries: The patient sustained injury to the abdomen, pain. 7 02:25 Associated injuries: The patient sustained bilateral lower back, painful injury. 7 02:25 Severity of symptoms: At their worst the symptoms were moderate, 6 hour(s) ago, in the [facility] emergency department the symptoms have improved, moderately. Patient is 27 weeks and was evaluated and monitored in L\T\D prior to being sent to ER. Denies any head trauma or LOC. Denies any vaginal bleeding.. 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 - Social history:: Smoking status: Reported history of juuling and/or vaping. - Immunization history: Last tetanus immunization: unknown. ROS: 02:25 Constitutional: Negative for fever, chills, and weight loss, Eyes: Negative for injury, mh7 pain, redness, and discharge, ENT: Negative for injury, pain, and discharge, Neck: Negative for injury, pain, and swelling, Cardiovascular: Negative for chest pain, palpitations, and edema, Respiratory: Negative for shortness of breath, cough, wheezing, and pleuritic chest pain, : Negative for injury, bleeding, discharge, and swelling, MS/Extremity: Negative for injury and deformity, Skin: Negative for injury, rash, and discoloration, Neuro: Negative for headache, weakness, numbness, tingling, and seizure, Psych: Negative for depression, anxiety, suicide ideation, homicidal ideation, and hallucinations, Allergy/Immunology: Negative for hives, rash, and allergies, Endocrine: Negative for neck swelling, polydipsia, polyuria, polyphagia, and marked weight changes, Hematologic/Lymphatic: Negative for swollen nodes, abnormal bleeding, and unusual bruising. Exam: 02:25 Constitutional: This is a well developed, well nourished patient who is awake, alert, mh7 and in no acute distress. Head/Face: Normocephalic, atraumatic. Eyes: Pupils equal round and reactive to light, extra-ocular motions intact. Lids and lashes normal. Conjunctiva and sclera are non-icteric and not injected. Cornea within normal limits. Periorbital areas with no swelling, redness, or edema. ENT: Nares patent. No nasal discharge, no septal abnormalities noted. Tympanic membranes are normal and external auditory canals are clear. Oropharynx with no redness, swelling, or masses, exudates, or evidence of obstruction, uvula midline. Mucous membranes moist. Neck: Trachea midline, no thyromegaly or masses palpated, and no cervical lymphadenopathy. Supple, full range of motion without nuchal rigidity, or vertebral point tenderness. No Meningismus. Chest/axilla: Normal chest wall appearance and motion. Nontender with no deformity. No lesions are appreciated. Cardiovascular: Regular rate and rhythm with a normal S1 and S2. No gallops, murmurs, or rubs. Normal PMI, no JVD. No pulse deficits. Respiratory: Lungs have equal breath sounds bilaterally, clear to auscultation and percussion. No rales, rhonchi or wheezes noted. No increased work of breathing, no retractions or nasal flaring. Skin: Warm, dry with normal turgor. Normal color with no rashes, no lesions, and no evidence of cellulitis. MS/ Extremity: Pulses equal, no cyanosis. Neurovascular intact. Full, normal range of motion. Neuro: Awake and alert, GCS 15, oriented to person, place, time, and situation. Cranial nerves II-XII grossly intact. Motor strength 5/5 in all extremities. Sensory grossly intact. Cerebellar exam normal. Normal gait. Psych: Awake, alert, with orientation to person, place and time. Behavior, mood, and affect are within normal limits. 02:25 Back: No spinal tenderness. No costovertebral tenderness. Full range of motion. 02:25 Abdomen/GI: Inspection: gravid appearance, is noted, Bowel sounds: normal, in all quadrants, Palpation: mild abdominal tenderness, in the epigastric area, mass, is not appreciated, rebound tenderness, is not appreciated, voluntary guarding, is not appreciated, involuntary guarding, is not appreciated, no appreciated organomegaly, Indicators: McBurney's point is not tender, Ross's sign is negative, Rovsing's sign is negative, Obturator sign is negative, Psoas sign is negative, Liver: no appreciated palpable abnormalities, Hernia: not appreciated. 02:25 : Vital Signs: 02:16 BP 103 / 61; Pulse 82; Resp 16; Temp 98.8; Pulse Ox 99% ; Weight 78.47 kg; Height 5 ft. vc1 1 in. (154.94 cm); Pain 6/10; 03:25 BP 114 / 58; Pulse 87; Resp 16 S; Pulse Ox 100% on R/A; as6 04:30 BP 112 / 64; Pulse 64; Resp 18 S; Pulse Ox 99% on R/A; as6 05:30 BP 110 / 64; Pulse 93; Resp 18 S; Pulse Ox 99% on R/A; as6 06:30 BP 111 / 64; Pulse 68; Resp 18 S; Pulse Ox 100% on R/A; as6 02:16 Body Mass Index 32.69 (78.47 kg, 154.94 cm) vc1 Tahir Coma Score: 02:25 Eye Response: spontaneous(4). Verbal Response: oriented(5). Motor Response: obeys as6 commands(6). Total: 15. Trauma Score (Adult): 02:25 Eye Response: spontaneous(1); Verbal Response: oriented(1); Motor Response: obeys as6 commands(2); Systolic BP: > 89 mm Hg(4); Respiratory Rate: 10 to 29 per min(4); [place] Score: 15; Trauma Score: 12 MDM: 06:42 Differential diagnosis: abrasion, contusion, strain. Data reviewed: vital signs, nurses mh7 notes, lab test result(s), Beta HCG: CBC, electrolytes, urinalysis, radiologic studies, ultrasound. Data interpreted: Pulse oximetry: on room air is 100 %. Interpretation: normal. Counseling: I had a detailed discussion with the patient and/or guardian regarding: the historical points, exam findings, and any diagnostic results supporting the discharge/admit diagnosis, lab results, radiology results, the need for outpatient follow up, an OB/Gyne specialist. Response to treatment: the patient's symptoms have resolved after treatment, the patient's blood pressure is in an acceptable range, mental status has returned to baseline, the patient no longer shows bradycardia, the patient is not short of breath, the patient is not tachycardic, the patient's pain is gone, the patient's temperature has normalized. 06:45 Patient medically screened. [facility] 01/29 02:34 Order name: Basic Metabolic Panel; Complete Time: 04:24 [facility] 01/29 02:34 Order name: CBC with Diff; Complete Time: 03:44 [facility] 01/29 02:34 Order name: Type And Screen; Complete Time: 04:24 [facility] 01/29 02:34 Order name: Protime (+inr); Complete Time: 03:50 [facility] 01/29 02:34 Order name: Ptt, Activated; Complete Time: 03:50 [facility] 01/29 02:34 Order name: LFT's; Complete Time: 04:24 [facility] 01/29 02:34 Order name: Labs collected and sent; Complete Time: 03:24 [facility] 01/29 02:36 Order name: Urine Dipstick-Ancillary (obtain specimen); Complete Time: 04:55 [facility] 01/29 02:36 Order name: HCG-Quantitative; Complete Time: 04:24 [facility] 01/29 02:36 Order name: US Abdomen Complete [facility] 01/29 04:51 Order name: Urine Dipstick-Ancillary; Complete Time: 04:51 EDMS Administered Medications: 03:24 Drug: Tylenol 1000 mg Route: PO; as6 06:58 Follow up: Response: No adverse reaction as6 Disposition Summary: 01/29/22 06:45 Discharge Ordered Location: Home [facility] Problem: new [facility] Symptoms: have improved [facility] Condition: Stable 7 Diagnosis - Fall from chair, initial encounter mh7 - 27 weeks gestation of mh7 - Unspecified hydronephrosis - Right mh7 Followup: mh7 - With: Private Physician - When: 1 - 2 days - Reason: Worsening of condition, Recheck today's complaints, Continuance of care, Re-evaluation by your physician Discharge Instructions: - Discharge Summary Sheet 7 - Fall Prevention in the Home, Adult mh7 - Third Trimester of mh7 - Hydronephrosis [facility] Forms: - Medication Reconciliation Form 7 - Thank You Letter 7 - Antibiotic Education 7 - Prescription Opioid Use [facility] Signatures: Dispatcher [employer] EDJulius Combs MD MD mh7 Zachariah Stratton RN RN as6 Michelle Beltran RN RN vc1 Miladys Avina PA PA sb3 Corrections: (The following items were deleted from the chart) 02:53 02:25 Onset: The symptoms/episode began/occurred 3 hour(s) ago, 7 7 06:56 06:56 PMHx: Hypertension; as6 as6
[2022-01-29 07:14] VITALS: TEMP 98.8
[2022-01-29 07:21] VITALS: BP 111/64; O2SAT 100
--- NOTE | 2022-01-30 20:04 | RAD REPORT ---
EXAM DESCRIPTION: US - Abdomen Exam Complete - 01/29/2022 5:35 am CLINICAL HISTORY: The patient is 21 years old and is Female; TRAUMA TECHNIQUE: Real-time ultrasound of the abdomen with image documentation. COMPARISON: No relevant prior studies available. FINDINGS: LIVER: Unremarkable. No mass. No intrahepatic bile duct dilation. Normal hepatopedal flow. GALLBLADDER: Unremarkable. No gallstones. COMMON BILE DUCT: Unremarkable as visualized. No stones. No dilation. PANCREAS: Unremarkable as visualized. KIDNEYS: Moderate right hydronephrosis is present. The kidneys are normal in echogenicity. No s tones. SPLEEN: Unremarkable. No splenomegaly. AORTA: Unremarkable. No aneurysm. INFERIOR VENA CAVA: Unremarkable. IMPRESSION: Moderate right hydronephrosis. Electronically signed by: Eunice Hollins MD 01/29/2022 5:16 AM CDT Due to temporary technical issues with the PACS/Fluency reporting system, reports are being signed by the in house radiologists without review as a courtesy to insure prompt reporting. The interpreting radiologist is fully responsible for the content of the report.
== END 2022-01-29 06:58 | disposition home or self-care (01) ==
LOC: ER 01:56
DX: O99.891 Other specified diseases and conditions complicating pregnancy (principal); N13.30 Unspecified hydronephrosis; W07.XXXA Fall from chair, initial encounter; Z3A.27 27 weeks gestation of pregnancy
CPT/HCPCS: 36415; 76700; 80048; 80076; 81003; 84702; 85025; 85610; 85730; 86850; 86900; 86901; 99284

== ENCOUNTER → 2023-09-05 | Emergency (ER) | payer OTHER, SELFPAY ==
[~2023-09-05] MED LIST: ACETAMINOPHEN 500 MG TAB ONE; AZITHROMYCIN 250 MG TAB ONE; CEFTRIAXONE 1000 MG/VIAL ONE; FLUCONAZOLE 100 MG TAB ONE; IBUPROFEN 400 MG TAB ONE; LIDOCAINE 1% MPF 5 ML VIAL ONE; PROMETHAZINE 25 MG TABLET ONE; metroNIDAZOLE 500 MG TABLET ONE
--- OUTSIDE RECORDS SUMMARY | 2023-09-05 02:11 | XMS REPORT | Continuity of Care Document ---
Author Name Unknown Address [address] [facility] [address] [place] [address] [facility] Address [address] [facility]. 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 Role Phone Marley Clement Primary Care Physician + [phone] CAROLYNN ESPARZA Attending Clinician Unavailable NEMO PRADO Attending Clinician UnavailNEMO Harris Attending Clinician UnavailCarolynn Everett MD Attending Clinician [phone], [facility] Attending Clinician Unavailable MARLEY FUNEZ Attending Clinician Unavailable ALYSON MICHEL Attending Clinician Unavailab Alyson Coronado DO Attending Clinician [phone] KALINA HARO Attending Clinician KALINA Mensah Attending Clinician Jatinder marcum Doctor Unassigned, [place] Attending Clinician U KENNY Stahl Attending Clinician Unavailable Kenny Suresh Attending Clinician [phone] MILY DELGADILLO Attending Clinician Unavailable Razia Flowers Attending Clinician [phone] Mily Delgadillo MD Attending Clinician [phone] Brianne Britton PA-C Attending Clinician [phone] BRIANNE BRITTON Attending Clinician Unavailable Marley Clement Attending Clinician [phone] Unknown, Attending Attending Clinician Unavailab Nell Meraz MA Attending Clinician UnavailLivan Irizarry CRNA Attending Clinician [phone] Luis Levin MD Attending Clinician [phone] Pob, [facility] Main Attending Clinician Unavailmason e Only, [facility] Test Attending Clinician Unavailable TOM, GIDEON Attending Clinician Unavailable Green BACKUP SAWYER, Gideon Attending Clinician [phone] Ebrahim BACKUP SAWYER, Rania Attending Clinician [phone], [facility] Usg Room Attending Clinician Unavaila Lesly Norton MD Attending Clinician [phone] LESLY ELLIOTT Attending Clinician UnavailCassy Pacheco MD Attending Clinician [phone] Ultrasound, [facility] Attending Clinician Unavaila evelin Woodall DO, Gio Attending Clinician [phone] Banuelos PACAvis S Attending Clinician [phone] Ibikunnorm BACKUP SAWYER, Charlene F Attending Clinician [phone] CASSY RUTHERFORD Admitting Clinician Unavailable ALYSON MICHEL Admitting Clinician Unavailab KALINA Culver Admitting Clinician CAROLYNN You Admitting Clinician Unavailable MILY DELGADILLO Admitting Clinician Unavailable Mily Delgadillo MD Admitting Clinician [phone] MARLEY FUNEZ Admitting Clinician Unavailable Carolynn Esparza MD Admitting Clinician [phone] Cassy Rutherford MD Admitting Clinician [phone] Payers Payer Name Policy Type Policy Number Effective Date Expirati on Date Source [employer] [id number] 2021 00:00:00 Problems Condition Name Condition Details Condition Category Status Onset Date Resolution Date Last Treatment Date Treating Clinician Comments Source Pelvic pain in patient at less than 20 weeks gestation Pelvic pain in patient at less than 20 weeks gestation Disease Active 2022-07 0-27 00:00: 00 Chance [facility] Pelvic cramping in antepartum period Pelvic cramping in antepartum period Disease Active 1 0-24 00:00: 00 [facility] Vaginal bleeding affecting early Vaginal bleeding affecting early Disease Active 2022-07 0-24 00:00: 00 [facility] Upper abdominal pain Upper abdominal pain Disease Active 0 7-20 00:00: 00 [facility] Gallstones Gallstones Disease Active 0 7-15 00:00: 00 [facility] Vaginal discharge Vaginal discharge Disease Active 3-03 00:00: 00 [facility] Rash and other nonspecifi c skin eruption Rash and other nonspecifi c skin eruption Disease Active 0 3-03 00:00: 00 [facility] BMI 28.0-28.9, adult BMI 28.0-28.9, adult Disease Active 3-03 00:00: 00 [facility] Presence of intrauteri ne contracept magda device (IUD) Presence of intrauteri ne contracept magda device (IUD) Disease Active 2021-07 1-23 00:00: 00 [facility] 39 weeks gestation of 39 weeks gestation of Disease Active 2021-07 0-04 00:00: 00 [facility] Well woman exam with routine gynecologi anna exam Well woman exam with routine gynecologi anna exam Disease Active 2021-07 0-04 00:00: 00 [facility] Liveborn infant, of victor , born in hospital by vaginal delivery Liveborn , of victor , born in hospital by vaginal delivery Disease Active 2021-07 0-04 00:00: 00 [facility] Gastroesop hageal reflux disease, unspecifie d whether esophagiti s present Gastroesop hageal reflux disease, unspecifie d whether esophagiti s present Disease Active 8-25 00:00: 00 [facility] Encounter for tubal ligation counseling Encounter for tubal ligation counseling Disease Active 0 7-19 00:00: 00 [facility] High risk , antepartum High risk , antepartum Disease Active 3-30 00:00: 00 [facility] Nausea and vomiting during prior to 22 weeks gestation Nausea and vomiting during prior to 22 weeks gestation Disease Active 10-14 00:00: 00 [facility] No known active problems No known active problems Disease [facility] Allergies, Adverse Reactions, Alerts Allergy Name Allergy Type Status Severity Reaction(s) Onset Date Inactive Date Treating Clinician Comments Source NO KNOWN ALLERGIE S Drug Class Active [facility] Social History Social Habit Start Date Stop Date Quantity Comments Source ASSERTION 2021-08-04 00:00:00 [facility] Alcohol intake 2023-05-23 00:00:00 2023-05-23 00:00:00 Ex-drinker (finding) [facility] History of Social function 2023-03-01 00:00:00 2023-03-01 00:00:00 [facility] Tobacco Comment 2023-02-22 00:00:00 2023-02-22 00:00:00 vapes [facility] Tobacco use and exposure 2023-02-22 00:00:00 2023-02-22 00:00:00 Smokeless tobacco non-user [facility] Exposure to SARS-CoV-2 (event) 2022-11-05 00:00:00 2022-11-15 12:57:00 Not sure [facility] Sex Assigned At 2000 00:00:00 2000 00:00:00 [facility] Smoking Status Start Date Stop Date Source Never smoked tobacco [facility] Medications Ordered Medication Name Filled Medication Name Start Date Stop Date Current Medication? Ordering Clinician Indication Dosage Frequency Signature (SIG) Comments Components Source ketorolac (TORADOL) injection 30 mg 2022-07 05:45: 00 05-15 04:55 :00 No 30mg 30 mg, Slow IV Push, ONCE, 1 dose, On 05/15/23 at 0045, Routine [facility] FENTanyl PF (SUBLIMAZE (PF)) injection 50 mcg 2022-07 05:15: 00 05-15 04:27 :00 No 50ug 50 mcg, Slow IV Push, ONCE, 1 dose, On 05/15/23 at 0015, Routine [facility] ondansetron (ZOFRAN (PF)) injection 4 mg 2022-07 05:00: 00 05-15 04:59 :00 No 4mg 4 mg, Slow IV Push, ONCE, 1 dose, On 05/15/23 at 0000, SHAMAR [facility] iopamidol (ISOVUE 370-500 mL) injection 80 mL 2022-07 05:00: 00 05-15 05:00 :00 No [id number] 80mL 80 mL, Intravenou s, ONCE, 1 dose, On 05/15/23 at 0000, Routine [facility] morpHINE (4 mg/mL) injection 4 mg 2022-07 04:00: 00 05-15 03:56 :00 No 4mg 4 mg, Slow IV Push, ONCE, 1 dose, On 05/14/23 at 2300, STAT [facility] ondansetron (ZOFRAN (PF)) injection 4 mg 2022-07 04:00: 00 05-15 03:56 :00 No 4mg 4 mg, Slow IV Push, ONCE, 1 dose, On 05/14/23 at 2300, SHAMAR [facility] ketorolac 10 mg tablet 2022-07 00:00: 00 Yes [id number] 10mg Take 1 tablet by mouth every 6 (six) hours as needed for Pain (scale 1-3). [facility] ketorolac 10 mg tablet 2022-07 00:00: 00 Yes [id number] 10mg Take 1 tablet by mouth every 6 (six) hours as needed for Pain (scale 1-3). [facility] ketorolac 10 mg tablet 2022-07 00:00: 00 Yes [id number] 10mg Take 1 tablet by mouth every 6 (six) hours as needed for Pain (scale 1-3). [facility] ketorolac 10 mg tablet 2022-07 00:00: 00 Yes [id number] 10mg Take 1 tablet by mouth every 6 (six) hours as needed for Pain (scale 1-3). [facility] docusate (COLACE) capsule 100 mg 2022-07 13:00: 00 Yes 100mg 100 mg, Oral, Q12H, First dose on 05/14/23 at 0800, Until Discontinu ed, Routine [facility] docusate (COLACE) capsule 100 mg 2022-07 13:00: 00 05-15 02:05 :19 No 100mg 100 mg, Oral, Q12H, First dose on Tue05/14/23 at 0800, Until Discontinu ed, Routine [facility] docusate (COLACE) capsule 100 mg 2022-07 13:00: 00 05-15 02:05 :19 No 100mg 100 mg, Oral, Q12H, First dose on 05/14/23 at 0800, Until Discontinu ed, Routine [facility] simethicone (GAS RELIEF (SIMETHICON E)) chewable tablet 160 mg 2022-07 02:00: 00 Yes 160mg 160 mg, Oral, PC+HS, First dose on Tue05/13/23 at 2100, Until Discontinu ed, Routine [facility] simethicone (GAS RELIEF (SIMETHICON E)) chewable tablet 160 mg 2022-07 02:00: 00 05-15 02:05 :19 No 160mg 160 mg, Oral, PC+HS, First dose on Tue05/13/23 at 2100, Until Discontinu ed, Routine [facility] simethicone (GAS RELIEF (SIMETHICON E)) chewable tablet 160 mg 2022-07 02:00: 00 05-15 02:05 :19 No 160mg 160 mg, Oral, PC+HS, First dose on Tue05/13/23 at 2100, Until Discontinu ed, Routine [facility] ondansetron (ZOFRAN (PF)) injection 4 mg 2022-07 01:37: 05-14 01:38 :00 No 4mg 4 mg, Slow IV Push, PRN, 1 dose, Starting on Tue05/13/23 at 2036, Until Tue05/13/23 at 2037, Routine, Nausea and Vomiting (N/V), PACU [facility] FENTanyl PF (SUBLIMAZE (PF)) injection 25 mcg 2022-07 01:37: 02 05-14 02:43 :04 No 25ug 25 mcg, Slow IV Push, Q5MIN PRN, 4 doses, Starting on Tue05/13/23 at 2036, Until Tue05/13/23 at 2143, Routine, Pain (scale 4-6), PACU [facility] ondansetron (ZOFRAN (PF)) injection 4 mg 2022-07 01:37: 02 05-14 01:38 :00 No 4mg 4 mg, Slow IV Push, PRN, 1 dose, Starting on Tue05/13/23 at 2036, Until Tue05/13/23 at 2037, Routine, Nausea and Vomiting (N/V), PACU [facility] FENTanyl PF (SUBLIMAZE (PF)) injection 25 mcg 2022-07 01:37: 02 05-14 02:43 :04 No 25ug 25 mcg, Slow IV Push, Q5MIN PRN, 4 doses, Starting on Tue05/13/23 at 2036, Until Tue05/13/23 at 2143, Routine, Pain (scale 4-6), PACU [facility] ondansetron (ZOFRAN (PF)) injection 4 mg 2022-07 01:37: 02 05-14 01:38 :00 No 4mg 4 mg, Slow IV Push, PRN, 1 dose, Starting on Tue05/13/23 at 2036, Until Tue05/13/23 at 2037, Routine, Nausea and Vomiting (N/V), PACU [facility] FENTanyl PF (SUBLIMAZE (PF)) injection 25 mcg 2022-07 01:37: 02 05-14 02:43 :04 No 25ug 25 mcg, Slow IV Push, Q5MIN PRN, 4 doses, Starting on Tue05/13/23 at 2037, Until Tue05/13/23 at 2143, Routine, Pain (scale 4-6), PACU [facility] diphenhydrA MINE (BENADRYL) injection 25 mg 2022-07 01:13: 28 Yes 25mg 25 mg, Slow IV Push, Q6HPRN, Starting on Tue05/13/23 at 2012, Until Discontinu ed, Routine, Itching [facility] diphenhydrA MINE (BENADRYL) injection 25 mg 2022-07 01:13: 28 05-15 02:05 :19 No 25mg 25 mg, Slow IV Push, Q6HPRN, Starting on Tue05/13/23 at 2012, Until 05/14/23 at 2105, Routine, Itching [facility] diphenhydrA MINE (BENADRYL) injection 25 mg 2022-07 01:13: 28 05-15 02:05 :19 No 25mg 25 mg, Slow IV Push, Q6HPRN, Starting on Tue05/13/23 at 2012, Until 05/14/23 at 2105, Routine, Itching [facility] ondansetron (ZOFRAN (PF)) injection 4 mg 2022-07 01:13: 26 Yes 4mg 4 mg, Slow IV Push, Q4HPRN, Starting on Tue05/13/23 at 2012, Until Discontinu ed, Routine, Nausea and Vomiting (N/V) [facility] ondansetron (ZOFRAN (PF)) injection 4 mg 2022-07 01:13: 26 05-15 02:05 :19 No 4mg 4 mg, Slow IV Push, Q4HPRN, Starting on Tue05/13/23 at 2012, Until 05/14/23 at 2105, Routine, Nausea and Vomiting (N/V) [facility] ondansetron (ZOFRAN (PF)) injection 4 mg 2022-07 01:13: 26 05-15 02:05 :19 No 4mg 4 mg, Slow IV Push, Q4HPRN, Starting on Tue05/13/23 at 2012, Until 05/14/23 at 2105, Routine, Nausea and Vomiting (N/V) [facility] HYDROcodone -acetaminop hen (NORCO 5) 5-325 mg tablet 1 tablet 2022-07 01:13: 22 Yes 1{tbl} 1 tablet, Oral, Q6HPRN, Starting on Tue05/13/23 at 2012, Until Discontinu ed, Routine, Pain (scale 4-6) [facility] HYDROcodone -acetaminop hen (NORCO 5) 5-325 mg tablet 1 tablet 2022-07 01:13: 22 05-15 02:05 :19 No 1{tbl} 1 tablet, Oral, Q6HPRN, Starting on Tue05/13/23 at 2012, Until 05/14/23 at 2105, Routine, Pain (scale 4-6) [facility] HYDROcodone -acetaminop hen (NORCO 5) 5-325 mg tablet 1 tablet 2022-07 01:13: 22 05-15 02:05 :19 No 1{tbl} 1 tablet, Oral, Q6HPRN, Starting on Tue05/13/23 at 2012, Until 05/14/23 at 2105, Routine, Pain (scale 4-6) [facility] ibuprofen (IBU) tablet 600 mg 2022-07 01:13: 19 Yes 600mg 600 mg, Oral, Q6HPRN, Starting on Tue05/13/23 at 2012, Until Discontinu ed, Routine, Pain (scale 1-3) [facility] ibuprofen (IBU) tablet 600 mg 2022-07 01:13: 19 05-15 02:05 :19 No 600mg 600 mg, Oral, Q6HPRN, Starting on Tue05/13/23 at 2012, Until 05/14/23 at 2105, Routine, Pain (scale 1-3) [facility] ibuprofen (IBU) tablet 600 mg 2022-07 01:13: 19 05-15 02:05 :19 No 600mg 600 mg, Oral, Q6HPRN, Starting on Tue05/13/23 at 2013, Until 05/14/23 at 210, Routine, Pain (scale 1-3) [facility] bupivacaine (preserv free) 0.5% (SENSORCAIN E MPF) injection 2022-07 00:57: 00 Yes PRN, Starting on Tue05/13/23 at 195, Until Discontinu ed, Routine, Intra-op [facility] bupivacaine (preserv free) 0.5% (SENSORCAIN E MPF) injection 2022-07 00:57: 00 05-15 02:05 :19 No PRN, Starting on Tue05/13/23 at 195, Until 05/14/23 at 210, Routine, Intra-op [facility] bupivacaine (preserv free) 0.5% (SENSORCAIN E MPF) injection 2022-07 00:57: 00 05-15 02:05 :19 No PRN, Starting on Tue05/13/23 at 195, Until 05/14/23 at 210, Routine, Intra-op [facility] sodium chloride 0.9 % irrigation solution 2022-07 00:30: 00 05-14 02:41 :13 No PRN, Starting on Tue05/13/23 at 1930, Until Tue05/13/23 at 214, Intra-op [facility] sodium chloride 0.9 % irrigation solution 2022-07 00:30: 00 05-14 02:41 :13 No PRN, Starting on Tue05/13/23 at 1930, Until Tue05/13/23 at 2140, Intra-op [facility] HYDROcodone -acetaminop hen 5-325 mg tablet 2022-07 00:00: 00 05-22 04:59 :00 No [id number] 1{tbl} Take 1 tablet by mouth every 6 (six) hours as needed for Pain (scale 4-6) or Pain (scale 7-10) for up to 7 days. Indication s: acute pain [facility] HYDROcodone -acetaminop hen 5-325 mg tablet 2022-07 0 00:00: 00 05-22 04:59 :00 No [id number] 1{tbl} Take 1 tablet by mouth every 6 (six) hours as needed for Pain (scale 4-6) or Pain (scale 7-10) for up to 7 days. Indication s: acute pain [facility] HYDROcodone -acetaminop hen 5-325 mg tablet 2022-07 00:00: 00 05-22 04:59 :00 No [id number] 1{tbl} Take 1 tablet by mouth every 6 (six) hours as needed for Pain (scale 4-6) or Pain (scale 7-10) for up to 7 days. Indication s: acute pain [facility] HYDROcodone -acetaminop hen 5-325 mg tablet 2022-07 00:00: 00 05-22 04:59 :00 No [id number] 1{tbl} Take 1 tablet by mouth every 6 (six) hours as needed for Pain (scale 4-6) or Pain (scale 7-10) for up to 7 days. Indication s: acute pain [facility] morpHINE (2 mg/mL) injection 2 mg 2022-07 22:45: 00 05-13 22:48 :00 No 2mg 2 mg, Slow IV Push, ONCE, 1 dose, On Tue05/13/23 at 1745, STAT [facility] morpHINE (2 mg/mL) injection 2 mg 2022-07 22:45: 00 05-13 22:48 :00 No 2mg 2 mg, Slow IV Push, ONCE, 1 dose, On Tue05/13/23 at 1745, STAT [facility] morpHINE (2 mg/mL) injection 2 mg 2022-07 22:45: 00 05-13 22:48 :00 No 2mg 2 mg, Slow IV Push, ONCE, 1 dose, On Tue05/13/23 at 1745, STAT [facility] ondansetron (ZOFRAN (PF)) injection 4 mg 2022-07 21:00: 00 05-13 21:04 :00 No 4mg 4 mg, Slow IV Push, ONCE, 1 dose, On Tue05/13/23 at 1600, [facility] morpHINE (4 mg/mL) injection 4 mg 2022-07 21:00: 00 05-13 21:03 :00 No 4mg 4 mg, Slow IV Push, ONCE, 1 dose, On Tue05/13/23 at 1600, STAT [facility] ondansetron (ZOFRAN (PF)) injection 4 mg 2022-07 21:00: 00 05-13 21:04 :00 No 4mg 4 mg, Slow IV Push, ONCE, 1 dose, On Tue05/13/23 at 1600, [facility] morpHINE (4 mg/mL) injection 4 mg 2022-07 21:00: 00 05-13 21:03 :00 No 4mg 4 mg, Slow IV Push, ONCE, 1 dose, On Tue05/13/23 at 1600, STAT [facility] ondansetron (ZOFRAN (PF)) injection 4 mg 2022-07 21:00: 00 05-13 21:04 :00 No 4mg 4 mg, Slow IV Push, ONCE, 1 dose, On Tue05/13/23 at 1600, [facility] morpHINE (4 mg/mL) injection 4 mg 2022-07 21:00: 00 05-13 21:03 :00 No 4mg 4 mg, Slow IV Push, ONCE, 1 dose, On Tue05/13/23 at 1600, [facility] fluconazole (DIFLUCAN) 150 mg tablet 03-04 00:00: 00 03-05 04:59 :00 No [id number] 150mg Take 1 tablet by mouth once now for 1 dose. [facility] morpHINE (2 mg/mL) injection 2 mg 2022-03-01 15:39: 37 Yes 2mg 2 mg, Slow IV Push, Q5MIN PRN, 5 doses, Starting on Tue03/01/23 at 1039, Until Discontinu ed, Routine, Pain (scale 4-6), PACU [facility] ondansetron (ZOFRAN (PF)) injection 4 mg 03-01 15:39: 37 Yes 4mg 4 mg, Slow IV Push, PRN, 1 dose, Starting on Tue03/01/23 at 1039, Until Discontinu ed, Routine, Nausea and Vomiting (N/V), PACU [facility] morpHINE (2 mg/mL) injection 2 mg 03-01 15:39: 37 03-01 21:25 :58 No 2mg 2 mg, Slow IV Push, Q5MIN PRN, 5 doses, Starting on Tue03/01/23 at 1039, Until Tue03/01/23 at 1625, Routine, Pain (scale 4-6), PACU [facility] ondansetron (ZOFRAN (PF)) injection 4 mg 03-01 15:39: 37 03-01 21:25 :58 No 4mg 4 mg, Slow IV Push, PRN, 1 dose, Starting on Tue03/01/23 at 1039, Until Tue03/01/23 at 1625, Routine, Nausea and Vomiting (N/V), PACU [facility] sodium chloride 0.9 % irrigation solution 03-01 14:30: 00 03-01 16:08 :26 No PRN, Starting on Tue03/01/23 at 0930, Until Tue03/01/23 at 1108, Intra-op [facility] iohexoL (OMNIPAQUE 300-50 mL)) injection 03-01 14:30: 00 03-01 16:08 :26 No PRN, Starting on Tue03/01/23 at 0930, Until Tue03/01/23 at 1108, Routine, Intra-op [facility] bupivacaine (preserv free) (SENSORCAIN E MPF) 0.25 % (2.5 mg/mL) 30 mL, lidocaine-e pinephrine (XYLOCAINE WITH EPINEPHRINE ) 1 %-1:100,000 30 mL 15 14:28: 00 03-01 16:08 :26 No PRN, Starting on Tue03/01/23 at 0928, Intra-op [facility] lactated ringers IV infusion 1,000 mL 2022-0 15 13:30: 00 03-01 13:37 :00 No 1000mL at 42 mL/hr, 1,000 mL, IV Infusion, ONCE, 1 dose, On Tue03/01/23 at 0830, Routine, [facility] 1,000 mL 2022-0 03-01 13:30: 00 03-01 13:37 :00 No 1000mL at 42 mL/hr, 1,000 mL, IV Infusion, ONCE, 1 dose, On Tue03/01/23 at 0830, Routine, DSU Pre-op [facility] ibuprofen 800 mg tablet 2022-0 -15 00:00: 00 Yes [id number] 800mg Take 1 tablet by mouth every 6 (six) hours as needed for Pain (scale 4-6). [facility] ibuprofen 800 mg tablet 3-0 8-15 00:00: 00 Yes [id number] 800mg Take 1 tablet by mouth every 6 (six) hours as needed for Pain (scale 4-6). [facility] ibuprofen 800 mg tablet 3-0 8-15 00:00: 00 Yes [id number] 800mg Take 1 tablet by mouth every 6 (six) hours as needed for Pain (scale 4-6). [facility] ibuprofen 800 mg tablet 3-0 8-15 00:00: 00 Yes [id number] 800mg Take 1 tablet by mouth every 6 (six) hours as needed for Pain (scale 4-6). [facility] ibuprofen 800 mg tablet 3-0 8-15 00:00: 00 Yes [id number] 800mg Take 1 tablet by mouth every 6 (six) hours as needed for Pain (scale 4-6). [facility] ibuprofen 800 mg tablet 3-0 8-15 00:00: 00 Yes [id number] 800mg Take 1 tablet by mouth every 6 (six) hours as needed for Pain (scale 4-6). [facility] ibuprofen 800 mg tablet 2022-0 8-15 00:00: 00 Yes [id number] 800mg Take 1 tablet by mouth every 6 (six) hours as needed for Pain (scale 4-6). [facility] ibuprofen 800 mg tablet 2022-0 8-15 00:00: 00 Yes [id number] 800mg Take 1 tablet by mouth every 6 (six) hours as needed for Pain (scale 4-6). [facility] ibuprofen 800 mg tablet 2022-0 8-15 00:00: 00 Yes [id number] 800mg Take 1 tablet by mouth every 6 (six) hours as needed for Pain (scale 4-6). [facility] ibuprofen 800 mg tablet 2022-0 8-15 00:00: 00 Yes [id number] 800mg Take 1 tablet by mouth every 6 (six) hours as needed for Pain (scale 4-6). [facility] ibuprofen 800 mg tablet 0 8-15 00:00: 00 Yes [id number] 800mg Take 1 tablet by mouth every 6 (six) hours as needed for Pain (scale 4-6). [facility] ibuprofen 800 mg tablet 0 8-15 00:00: 00 Yes [id number] 800mg Take 1 tablet by mouth every 6 (six) hours as needed for Pain (scale 4-6). [facility] ibuprofen 800 mg tablet 2022-0 8-15 00:00: 00 05-10 00:00 :00 No [id number] 800mg Take 1 tablet by mouth every 6 (six) hours as needed for Pain (scale 4-6). [facility] ibuprofen 800 mg tablet 2022-0 8-15 00:00: 00 05-10 00:00 :00 No [id number] 800mg Take 1 tablet by mouth every 6 (six) hours as needed for Pain (scale 4-6). [facility] HYDROcodone -acetaminop hen (NORCO) 5-325 mg tablet 0 8-15 00:00: 00 03-09 04:59 :00 No [id number] 1{tbl} Take 1 tablet by mouth every 6 (six) hours as needed for Pain (scale 7-10) for up to 7 days. Indication s: acute pain [facility] HYDROcodone -acetaminop hen (NORCO) 5-325 mg tablet 8-15 00:00: 00 03-09 04:59 :00 No [id number] 1{tbl} Take 1 tablet by mouth every 6 (six) hours as needed for Pain (scale 7-10) for up to 7 days. Indication s: acute pain [facility] HYDROcodone -acetaminop hen (NORCO) 5-325 mg tablet 8-15 00:00: 00 03-09 04:59 :00 No [id number] 1{tbl} Take 1 tablet by mouth every 6 (six) hours as needed for Pain (scale 7-10) for up to 7 days. Indication s: acute pain [facility] fluconazole (DIFLUCAN) 150 mg tablet 15 00:00: 00 12-31 04:59 :00 No [id number] 150mg Take 1 tablet by mouth once now for 1 dose. [facility] omeprazole 20 mg capsule 0 11-12 00:00: 00 11-27 04:59 :00 No [id number] 20mg Take 1 capsule by mouth in the morning for 14 days. [facility] omeprazole 20 mg capsule 0 11-12 00:00: 00 11-27 04:59 :00 No [id number] 20mg Take 1 capsule by mouth in the morning for 14 days. [facility] triamcinolo ne acetonide 0.1 % cream 3-03 00:00: 00 Yes [id number] Apply to area(s) 2 (two) times daily. [facility] triamcinolo ne acetonide 0.1 % cream 3-03 00:00: 00 Yes [id number] Apply to area(s) 2 (two) times daily. [facility] triamcinolo ne acetonide 0.1 % cream 3-03 00:00: 00 Yes [id number] Apply to area(s) 2 (two) times daily. [facility] ity [facility] triamcinolo ne acetonide 0.1 % cream 3-0 3-03 00:00: 00 Yes [id number] Apply to area(s) 2 (two) times daily. [facility] triamcinolo ne acetonide 0.1 % cream 2023-0 3-03 00:00: 00 Yes [id number] Apply to area(s) 2 (two) times daily. [facility] triamcinolo ne acetonide 0.1 % cream 3-0 3-03 00:00: 00 Yes [id number] Apply to area(s) 2 (two) times daily. [facility] triamcinolo ne acetonide 0.1 % cream 2023-0 3-03 00:00: 00 Yes [id number] Apply to area(s) 2 (two) times daily. [facility] triamcinolo ne acetonide 0.1 % cream 3-0 3-03 00:00: 00 Yes [id number] Apply to area(s) 2 (two) times daily. [facility] triamcinolo ne acetonide 0.1 % cream 3-0 3-03 00:00: 00 Yes [id number] Apply to area(s) 2 (two) times daily. [facility] triamcinolo ne acetonide 0.1 % cream 3-0 3-03 00:00: 00 Yes [id number] Apply to area(s) 2 (two) times daily. [facility] triamcinolo ne acetonide 0.1 % cream 3-0 3-03 00:00: 00 Yes [id number] Apply to area(s) 2 (two) times daily. [facility] triamcinolo ne acetonide 0.1 % cream 3-0 3-03 00:00: 00 Yes [id number] Apply to area(s) 2 (two) times daily. [facility] ity [facility] triamcinolo ne acetonide 0.1 % cream 2023-0 3-03 00:00: 00 Yes [id number] Apply to area(s) 2 (two) times daily. [facility] ity [facility] triamcinolo ne acetonide 0.1 % cream 2023-0 3-03 00:00: 00 Yes [id number] Apply to area(s) 2 (two) times daily. [facility] ity [facility] triamcinolo ne acetonide 0.1 % cream 2023-0 3-03 00:00: 00 Yes [id number] Apply to area(s) 2 (two) times daily. [facility] ity [facility] triamcinolo ne acetonide 0.1 % cream 2023-0 3-03 00:00: 00 Yes [id number] Apply to area(s) 2 (two) times daily. [facility] triamcinolo ne acetonide 0.1 % cream 2023-0 3-03 00:00: 00 Yes [id number] Apply to area(s) 2 (two) times daily[facility] triamcinolo ne acetonide 0.1 % cream 2023-0 3-03 00:00: 00 Yes [id number] Apply to area(s) 2 (two) times daily. [facility] triamcinolo ne acetonide 0.1 % cream 3-0 3-03 00:00: 00 Yes [id number] Apply to area(s) 2 (two) times daily. [facility] triamcinolo ne acetonide 0.1 % cream 2023-0 3-03 00:00: 00 Yes [id number] Apply to area(s) 2 (two) times daily. [facility] ity [facility] triamcinolo ne acetonide 0.1 % cream 2023-0 3-03 00:00: 00 Yes [id number] Apply to area(s) 2 (two) times daily. [facility] ity [facility] triamcinolo ne acetonide 0.1 % cream 2023-0 3-03 00:00: 00 Yes [id number] Apply to area(s) 2 (two) times daily. [facility] ity [facility] triamcinolo ne acetonide 0.1 % cream 2023-0 3-03 00:00: 00 Yes [id number] Apply to area(s) 2 (two) times daily. [facility] triamcinolo ne acetonide 0.1 % cream 3 00:00: 00 Yes [id number] Apply to area(s) 2 (two) times daily. [facility] triamcinolo ne acetonide 0.1 % cream 3- 00:00: 00 Yes [id number] Apply to area(s) 2 (two) times daily. [facility] triamcinolo ne acetonide 0.1 % cream 3 00:00: 00 03-01 00:00 :00 No [id number] Apply to area(s) 2 (two) times daily. [facility] triamcinolo ne acetonide 0.1 % cream 09-17 00:00: 00 03-01 00:00 :00 No [id number] Apply to area(s) 2 (two) times daily. [facility] metroNIDAZO LE 500 mg tablet 09-17 00:00: 00 09-25 05:59 :00 No [id number] 500mg Take 1 tablet by mouth every 12 (twelve) hours for 7 days. [facility] metroNIDAZO LE 500 mg tablet 09-17 00:00: 00 09-25 05:59 :00 No [id number] 500mg Take 1 tablet by mouth every 12 (twelve) hours for 7 days. [facility] levonorgest reL (KYLEENA) IUD 1 Device 2021-07 17:15: 00 06-09 16:22 :00 No [id number] 1{devic e} [facility] levonorgest reL (KYLEENA) IUD 1 Device 2021-07 17:15: 00 06-09 16:22 :00 No [id number] 1{devic e} 1 Device, Intrauteri ne, ONCE, 1 dose, On Tue06/09/22 at 1115, Routine [facility] levonorgest reL (KYLEENA) IUD 1 Device 2021-07 17:15: 00 06-09 16:22 :00 No [id number] 1{devic e} [facility] levonorgest reL (KYLEENA) IUD 1 Device 2021-07 17:15: 00 06-09 16:22 :00 No [id number] 1{devic e} 1 Device, Intrauteri ne, ONCE, 1 dose, On Tue06/09/22 at 1115, Routine [facility] miSOPROStoL 200 mcg tablet 2021-07 00:00: 00 Yes [id number] 200ug Take 1 tablet by mouth SEE-INSTRU CTIONS. Take one tab the night before and one tab the morning of procedure [facility] miSOPROStoL 200 mcg tablet 2021-07 00:00: 00 06-09 00:00 :00 No [id number] 200ug Take 1 tablet by mouth SEE-INSTRU CTIONS. Take one tab the night before and one tab the morning of procedure [facility] miSOPROStoL 200 mcg tablet 2021-07 00:00: 00 06-09 00:00 :00 No [id number] 200ug Take 1 tablet by mouth SEE-INSTRU CTIONS. Take one tab the night before and one tab the morning of procedure [facility] fluoxetine HCl (PROZAC ORAL) 2021-07 0-05 08:16: 25 04-21 00:00 :00 No Take by mouth. [facility] 25/iron fum/folic/d tolliver (-1 ORAL) 2021-07 0-05 08:16: 25 04-21 00:00 :00 No Take by mouth. [facility] famotidine (PEPCID (PF)) injection 20 mg 2021-07 0-05 01:00: 00 04-20 22:33 :17 No 20mg 20 mg, Slow IV Push, Q12H, 4 doses, First dose on Tue04/20/22 at 2000, Last dose on Tue04/22/22 at 0800, Routine [facility] vitamin w/FA tablet 2021-07 0 00:00: 00 Yes [id number] 1{tbl} Take 1 tablet by mouth in the morning. [facility] docusate 100 mg capsule 2021-07 00:00: 00 Yes [id number] 200mg Take 2 capsules by mouth once daily as needed for Constipati on. [facility] ferrous sulfate 325 mg (65 mg iron) tablet 2021-07 00:00: 00 Yes [id number] 325mg Take 1 tablet by mouth in the morning and 1 tablet in the evening. [facility] ibuprofen 600 mg tablet 2021-07 00:00: 00 Yes [id number] 600mg Take 1 tablet by mouth every 6 (six) hours as needed (Pain). Take with food or milk. [facility] ferrous sulfate 325 mg (65 mg iron) tablet 2021-07 00:00: 00 Yes [id number] 325mg Take 1 tablet by mouth in the morning and 1 tablet in the evening. [facility] ferrous sulfate 325 mg (65 mg iron) tablet 2021-07 00:00: 00 Yes [id number] 325mg Take 1 tablet by mouth in the morning and 1 tablet in the evening. [facility] ferrous sulfate 325 mg (65 mg iron) tablet 2021-07 00:00: 00 Yes [id number] 325mg Take 1 tablet by mouth in the morning and 1 tablet in the evening. [facility] ferrous sulfate 325 mg (65 mg iron) tablet 2021-07 00:00: 00 Yes [id number] 325mg Take 1 tablet by mouth in the morning and 1 tablet in the evening. [facility] ferrous sulfate 325 mg (65 mg iron) tablet 2021-07 0 00:00: 00 Yes [id number] 325mg Take 1 tablet by mouth in the morning and 1 tablet in the evening. [facility] ferrous sulfate 325 mg (65 mg iron) tablet 2021-07 0 00:00: 00 Yes [id number] 325mg Take 1 tablet by mouth in the morning and 1 tablet in the evening. [facility] ferrous sulfate 325 mg (65 mg iron) tablet 2021-07 0 00:00: 00 Yes [id number] 325mg Take 1 tablet by mouth in the morning and 1 tablet in the evening. [facility] ferrous sulfate 325 mg (65 mg iron) tablet 2021-07 0 00:00: 00 Yes [id number] 325mg Take 1 tablet by mouth in the morning and 1 tablet in the evening. [facility] ferrous sulfate 325 mg (65 mg iron) tablet 2021-07 0 00:00: 00 Yes [id number] 325mg Take 1 tablet by mouth in the morning and 1 tablet in the evening. [facility] ferrous sulfate 325 mg (65 mg iron) tablet 2021-07 0 00:00: 00 Yes [id number] 325mg Take 1 tablet by mouth in the morning and 1 tablet in the evening. [facility] ferrous sulfate 325 mg (65 mg iron) tablet 2021-07 0 00:00: 00 Yes [id number] 325mg Take 1 tablet by mouth in the morning and 1 tablet in the evening. [facility] ferrous sulfate 325 mg (65 mg iron) tablet 2021-07 0 00:00: 00 Yes [id number] 325mg Take 1 tablet by mouth in the morning and 1 tablet in the evening. [facility] ferrous sulfate 325 mg (65 mg iron) tablet 2021-07 0 00:00: 00 Yes [id number] 325mg Take 1 tablet by mouth in the morning and 1 tablet in the evening. [facility] ferrous sulfate 325 mg (65 mg iron) tablet 2021-07 0 00:00: 00 Yes [id number] 325mg Take 1 tablet by mouth in the morning and 1 tablet in the evening. [facility] ferrous sulfate 325 mg (65 mg iron) tablet 2021-07 0 00:00: 00 Yes [id number] 325mg Take 1 tablet by mouth in the morning and 1 tablet in the evening. [facility] ferrous sulfate 325 mg (65 mg iron) tablet 2021-07 0 00:00: 00 Yes [id number] 325mg Take 1 tablet by mouth in the morning and 1 tablet in the evening. [facility] ferrous sulfate 325 mg (65 mg iron) tablet 2021-07 0-05 00:00: 00 Yes [id number] 325mg Take 1 tablet by mouth in the morning and 1 tablet in the evening. [facility] ferrous sulfate 325 mg (65 mg iron) tablet 2021-07 0 00:00: 00 Yes [id number] 325mg Take 1 tablet by mouth in the morning and 1 tablet in the evening. [facility] ferrous sulfate 325 mg (65 mg iron) tablet 2021-07 0 00:00: 00 Yes [id number] 325mg Take 1 tablet by mouth in the morning and 1 tablet in the evening. [facility] ferrous sulfate 325 mg (65 mg iron) tablet 2021-07 0 00:00: 00 Yes [id number] 325mg Take 1 tablet by mouth in the morning and 1 tablet in the evening. [facility] ferrous sulfate 325 mg (65 mg iron) tablet 2021-07 0 00:00: 00 Yes [id number] 325mg Take 1 tablet by mouth in the morning and 1 tablet in the evening. [facility] ferrous sulfate 325 mg (65 mg iron) tablet 2021-07 0 00:00: 00 Yes [id number] 325mg Take 1 tablet by mouth in the morning and 1 tablet in the evening. [facility] ferrous sulfate 325 mg (65 mg iron) tablet 2021-07 0 00:00: 00 Yes [id number] 325mg Take 1 tablet by mouth in the morning and 1 tablet in the evening. [facility] ferrous sulfate 325 mg (65 mg iron) tablet 2021-07 0 00:00: 00 Yes [id number] 325mg Take 1 tablet by mouth in the morning and 1 tablet in the evening. [facility] ferrous sulfate 325 mg (65 mg iron) tablet 2021-07 0 00:00: 00 Yes [id number] 325mg Take 1 tablet by mouth in the morning and 1 tablet in the evening. [facility] ferrous sulfate 325 mg (65 mg iron) tablet 2021-07 0 00:00: 00 Yes [id number] 325mg Take 1 tablet by mouth in the morning and 1 tablet in the evening. [facility] ferrous sulfate 325 mg (65 mg iron) tablet 2021-07 0-05 00:00: 00 Yes [id number] 325mg Take 1 tablet by mouth in the morning and 1 tablet in the evening. [facility] ferrous sulfate 325 mg (65 mg iron) tablet 2021-07 0-05 00:00: 00 Yes [id number] 325mg Take 1 tablet by mouth in the morning and 1 tablet in the evening. [facility] ferrous sulfate 325 mg (65 mg iron) tablet 2021-07 0-05 00:00: 00 Yes [id number] 325mg Take 1 tablet by mouth in the morning and 1 tablet in the evening. [facility] ferrous sulfate 325 mg (65 mg iron) tablet 2021-07 0-05 00:00: 00 Yes [id number] 325mg Take 1 tablet by mouth in the morning and 1 tablet in the evening. [facility] ferrous sulfate 325 mg (65 mg iron) tablet 2021-07 0-05 00:00: 00 Yes [id number] 325mg Take 1 tablet by mouth in the morning and 1 tablet in the evening. [facility] ferrous sulfate 325 mg (65 mg iron) tablet 2021-07 005 00:00: 00 Yes [id number] 325mg Take 1 tablet by mouth in the morning and 1 tablet in the evening. [facility] ferrous sulfate 325 mg (65 mg iron) tablet 2021-07 005 00:00: 00 Yes [id number] 325mg Take 1 tablet by mouth in the morning and 1 tablet in the evening. [facility] ferrous sulfate 325 mg (65 mg iron) tablet 2021-07 0-05 00:00: 00 03-01 00:00 :00 No [id number] 325mg Take 1 tablet by mouth in the morning and 1 tablet in the evening. [facility] ferrous sulfate 325 mg (65 mg iron) tablet 2021-07 0-05 00:00: 00 03-01 00:00 :00 No [id number] 325mg Take 1 tablet by mouth in the morning and 1 tablet in the evening. [facility] vitamin w/FA tablet 2021-07 0-05 00:00: 00 05-12 00:00 :00 No [id number] 1{tbl} Take 1 tablet by mouth in the morning. [facility] docusate 100 mg capsule 2021-07 0-05 00:00: 00 05-12 00:00 :00 No [id number] 200mg Take 2 capsules by mouth once daily as needed for Constipati on. [facility] ibuprofen 600 mg tablet 2021-07 0-05 00:00: 00 05-12 00:00 :00 No [id number] 600mg Take 1 tablet by mouth every 6 (six) hours as needed (Pain). Take with food or milk. [facility] rho(D) immune globulin (RHOGAM) syringe 300 mcg 2021-07 22:33: 32 Yes 300ug 300 mcg, Intramuscu lar, ONCE, For 1 dose, Conditiona l, Routine [facility] HYDROcodone -acetaminop hen (NORCO 5) 5-325 mg tablet 1 tablet 2021-07 22:33: 28 Yes 1{tbl} 1 tablet, Oral, Q6HPRN, Starting on Tue04/20/22 at 1733, Until Discontinu ed, Routine, Pain (scale 7-10) [facility] ibuprofen (IBU) tablet 600 mg 2021-07 004 22:33: 28 Yes 600mg 600 mg, Oral, Q6HPRN, Starting on Tue04/20/22 at 1733, Until Discontinu ed, Routine, Pain (scale 4-6) [facility] acetaminoph en (TYLENOL) tablet 650 mg 2021-07 0 22:33: 28 Yes 650mg 650 mg, Oral, Q6HPRN, Starting on Tue04/20/22 at 1733, Until Discontinu ed, Routine, Pain (scale 1-3) [facility] diphenhydrA MINE (BENADRYL) tablet 25 mg 2021-07 0 22:33: 28 Yes 25mg 25 mg, Oral, Q6HPRN, Starting on Tue04/20/22 at 1733, Until Discontinu ed, Routine, Sleep, Itching [facility] ondansetron (ZOFRAN (PF)) injection 4 mg 2021-07 0-04 22:33: 28 Yes 4mg 4 mg, Slow IV Push, Q8HPRN, Starting on Tue04/20/22 at 1733, Until Discontinu ed, Routine, Nausea and Vomiting (N/V) [facility] simethicone (GAS RELIEF (SIMETHICON E)) chewable tablet 160 mg 2021-07 0-04 22:33: 28 Yes 160mg 160 mg, Oral, PC+HSPRN, Starting on Tue04/20/22 at 1733, Until Discontinu ed, Routine, Gas [facility] docusate (COLACE) capsule 200 mg 2021-07 004 22:33: 28 Yes 200mg 200 mg, Oral, QDAILYPRN, Starting on Tue04/20/22 at 1733, Until Discontinu ed, Routine, Constipati on [facility] magnesium hydroxide (MILK OF MAGNESIA) 400 mg/5 mL suspension 30 mL 2021-07 004 22:33: 28 Yes 30mL 30 mL, Oral, QDAILYPRN, Starting on Tue04/20/22 at 1733, Until Discontinu ed, Routine, Constipati on [facility] benzocaine- menthol (DERMOPLAST ) 20-0.5 % topical spray 2021-07 004 22:33: 28 Yes Topical, PRN, Starting on Tue04/20/22 at 1733, Until Discontinu ed, Routine, Perineum discomfort [facility] witch [place] (TUCKS) 50 % topical pad 2021-07 004 22:33: 17 Yes Topical, Q4HPRN, Starting on Tue04/20/22 at 1733, Until Discontinu ed, Routine, rectal/hem orrhoidal pain [facility] fluoxetine HCl (PROZAC ORAL) 2021-07 004 17:24: 43 Yes Take by mouth. [facility] 25/iron fum/folic/d tolliver (-1 ORAL) 2021-07 0-04 17:24: 43 Yes Take by mouth. [facility] fluoxetine HCl (PROZAC ORAL) 2021-07 0-04 17:24: 43 Yes Take by mouth. [facility] 25/iron fum/folic/d tolliver (-1 ORAL) 2021-07 004 17:24: 43 Yes Take by mouth. [facility] PIB fentaNYL-ro pivacaine 2 mcg/mL-0.1 % (PF) in NS 200 mL epidural infusion RTU 2021-07 0-04 14:11: 00 04-20 23:30 :10 No Epidural, ONCE INTRA PROCEDURE, Starting on Tue04/20/22 at 0911, Until Tue04/20/22 at 1830, Routine, Intra-op [facility] lidocaine-e pinephrine (XYLOCAINE W/EPINEPHRI NE) 1.5 %-1:200,000 injection 2021-07 0 14:10: 00 04-20 23:30 :10 No Epidural, ONCE INTRA PROCEDURE, Starting on Tue04/20/22 at 0910, Until Tue04/20/22 at 1830, Routine, Intra-op [facility] lidocaine 1% (XYLOCAINE) 100 mg/10 mL (1 %) injection 2021-07 004 14:10: 00 04-20 23:30 :10 No Infiltrati on, ONCE INTRA PROCEDURE, Starting on Tue04/20/22 at 0910, Until Tue04/20/22 at 1830, Routine, Intra-op [facility] lactated ringers IV infusion 500 mL 2021-07 0-04 08:45: 00 04-20 10:42 :00 No 500mL at 999 mL/hr, 500 mL, IV Infusion, ONCE, 1 dose, On Tue04/20/22 at 0345, Routine [facility] lactated ringers IV infusion 500 mL 2021-07 0-04 08:43: 17 04-20 22:33 :21 No 500mL at 999 mL/hr, 500 mL, IV Infusion, PRN - SEE INSTRUCTIO NS, Starting on Tue04/20/22 at 0343, Until Tue04/20/22 at 1733, Routine [facility] FENTanyl PF (SUBLIMAZE (PF)) injection 100 mcg 2021-07 0-04 08:43: 17 04-20 22:33 :17 No 100ug 100 mcg, Slow IV Push, Q1HPRN, Starting on Tue04/20/22 at 0343, Until Tue04/20/22 at 1733, Routine, contractio n pain without an epidural and SVE < 8 cm and Cat I strip [facility] oxytocin (PITOCIN) 30 units in NS 500 mL IV infusion 2021-07 0 08:43: 17 04-20 22:33 :21 No 2mU/min at 2-40 mL/hr, IV Infusion, TITRATE, Starting on Tue04/20/22 at 0343, Until Tue04/20/22 at 1733, SHAMAR [facility] sodium citrate-cit xi acid (BICITRA) 500-334 mg/5 mL solution 30 mL 2021-07 004 08:43: 17 04-20 12:59 :00 No 30mL 30 mL, Oral, PRE-PROCED URE ONCE, 1 dose, Starting on Tue04/20/22 at 034, Until Discontinu ed, Routine, Surgery/Pr ocedure [facility] [id number] IV infusion 1,000 mL 2021-07 0 08:43: 17 04-20 22:33 :21 No 1000mL at 1-125 mL/hr, IV Infusion, TITRATE, Starting on Tue04/20/22 at 0343, Until Tue04/20/22 at 1733, Routine [facility] lactated ringers IV infusion 500 mL 2021-07 004 08:43: 16 04-20 14:46 :00 No 500mL at 999 mL/hr, 500 mL, IV Infusion, PRN - SEE INSTRUCTIO NS, 1 dose, Starting on Tue04/20/22 at 034, Until Discontinu ed, Routine [facility] 25/iron fum/folic/d tolliver (-1 ORAL) 04-14 10:08: 05 Yes Take by mouth. [facility] 25/iron fum/folic/d tolliver (-1 ORAL) 04-14 10:08: 05 Yes Take by mouth. [facility] 25/iron fum/folic/d tolliver (-1 ORAL) 0 9-28 10:08: 05 Yes Take by mouth. [facility] 25/iron fum/folic/d tolliver (-1 ORAL) 0 -15 11:23: 13 Yes Take by mouth. [facility] 25/iron fum/folic/d tolliver (-1 ORAL) 0 -15 11:23: 13 Yes Take by mouth. [facility] 25/iron fum/folic/d tolliver (-1 ORAL) 0 9-15 11:23: 13 Yes Take by mouth. [facility] 25/iron fum/folic/d tolliver (-1 ORAL) 0 -15 11:23: 13 Yes Take by mouth. [facility] famotidine 40 mg tablet 2021-0 15 00:00: 00 Yes [id number] 40mg Take 1 tablet by mouth in the morning. [facility] famotidine 40 mg tablet 2021-0 15 00:00: 00 Yes [id number] 40mg Take 1 tablet by mouth in the morning. [facility] famotidine 40 mg tablet 2021-0 15 00:00: 00 Yes [id number] 40mg Take 1 tablet by mouth in the morning. [facility] famotidine 40 mg tablet 2021-0 15 00:00: 00 Yes [id number] 40mg Take 1 tablet by mouth in the morning. [facility] famotidine 40 mg tablet 2021-0 -15 00:00: 00 Yes [id number] 40mg Take 1 tablet by mouth in the morning. [facility] famotidine 40 mg tablet 2021-0 -15 00:00: 00 Yes [id number] 40mg Take 1 tablet by mouth in the morning. [facility] famotidine 40 mg tablet 2021-0 -15 00:00: 00 Yes [id number] 40mg Take 1 tablet by mouth in the morning. [facility] famotidine 40 mg tablet 2021-0 9-15 00:00: 00 Yes [id number] 40mg Take 1 tablet by mouth in the morning. [facility] famotidine 40 mg tablet 04-01 00:00: 00 Yes [id number] 40mg Take 1 tablet by mouth in the morning. [facility] famotidine 40 mg tablet 04-01 00:00: 00 04-21 00:00 :00 No [id number] 40mg Take 1 tablet by mouth in the morning. [facility] clindamycin (CLEOCIN) 100 mg vaginal suppository 02-25 00:00: 00 04-01 00:00 :00 No [id number] 100mg Insert 1 Suppositor y into vagina at bedtime. [facility] famotidine 40 mg tablet 02-23 00:00: 00 04-01 00:00 :00 No [id number] 40mg Take 1 tablet by mouth in the morning. [facility] fluoxetine HCl (PROZAC ORAL) 01-29 21:39: 50 Yes Take by mouth. [facility] fluoxetine HCl (PROZAC ORAL) 01-29 21:39: 50 Yes Take by mouth. [facility] fluoxetine HCl (PROZAC ORAL) 01-29 21:39: 50 Yes Take by mouth. [facility] fluoxetine HCl (PROZAC ORAL) 01-29 21:39: 50 Yes Take by mouth. [facility] fluoxetine HCl (PROZAC ORAL) 01-29 21:39: 50 Yes Take by mouth. [facility] fluoxetine HCl (PROZAC ORAL) 01-29 21:39: 50 Yes Take by mouth. [facility] fluoxetine HCl (PROZAC ORAL) 01-29 21:39: 50 Yes Take by mouth. [facility] metroNIDAZO LE 500 mg tablet 6-23 00:00: 00 04-01 00:00 :00 No [id number] 500mg Take 1 tablet by mouth every 12 (twelve) hours. [facility] azithromyci n 500 mg tablet 0 4-01 00:00: 00 04-01 00:00 :00 No [id number] 500mg Take 1 tablet by mouth daily. [facility] metoclopram yamini HCl 10 mg tablet 2021-0 3-30 00:00: 00 Yes [id number] 10mg Take 1 tablet by mouth every 6 (six) hours as needed for Nausea and Vomiting (N/V). [facility] metoclopram yamini HCl 10 mg tablet 2021-0 3-30 00:00: 00 Yes [id number] 10mg Take 1 tablet by mouth every 6 (six) hours as needed for Nausea and Vomiting (N/V). [facility] metoclopram yamini HCl 10 mg tablet 2021-0 3-30 00:00: 00 Yes [id number] 10mg Take 1 tablet by mouth every 6 (six) hours as needed for Nausea and Vomiting (N/V). [facility] metoclopram yamini HCl 10 mg tablet 2021-0 3-30 00:00: 00 Yes [id number] 10mg Take 1 tablet by mouth every 6 (six) hours as needed for Nausea and Vomiting (N/V). [facility] metoclopram yamini HCl 10 mg tablet 2021-0 3-30 00:00: 00 Yes [id number] 10mg Take 1 tablet by mouth every 6 (six) hours as needed for Nausea and Vomiting (N/V). [facility] metoclopram yamini HCl 10 mg tablet 2021-0 3-30 00:00: 00 Yes [id number] 10mg Take 1 tablet by mouth every 6 (six) hours as needed for Nausea and Vomiting (N/V). [facility] metoclopram yamini HCl 10 mg tablet 2021-0 3-30 00:00: 00 Yes [id number] 10mg Take 1 tablet by mouth every 6 (six) hours as needed for Nausea and Vomiting (N/V). [facility] metoclopram yamini HCl 10 mg tablet 2-0 3-30 00:00: 00 Yes [id number] 10mg Take 1 tablet by mouth every 6 (six) hours as needed for Nausea and Vomiting (N/V). [facility] metoclopram yamini HCl 10 mg tablet 0 3-30 00:00: 00 Yes [id number] 10mg Take 1 tablet by mouth every 6 (six) hours as needed for Nausea and Vomiting (N/V). [facility] metoclopram yamini HCl 10 mg tablet 2021-0 3-30 00:00: 00 04-21 00:00 :00 No [id number] 10mg Take 1 tablet by mouth every 6 (six) hours as needed for Nausea and Vomiting (N/V). [facility] fluticasone propionate 50 mcg/actuati on nasal spray 2018-07 00:00: 00 Yes [id number] 2{spray } Use 2 Sprays in each nostril daily. [facility] fluticasone propionate 50 mcg/actuati on nasal spray 2018-07 00:00: 00 Yes [id number] 2{spray } Use 2 Sprays in each nostril daily. [facility] fluticasone propionate 50 mcg/actuati on nasal spray 2018-07 00:00: 00 Yes [id number] 2{spray } Use 2 Sprays in each nostril daily. [facility] fluticasone propionate 50 mcg/actuati on nasal spray 2018-07 00:00: 00 Yes [id number] 2{spray } Use 2 Sprays in each nostril daily. [facility] fluticasone propionate 50 mcg/actuati on nasal spray 2018-07 00:00: 00 Yes [id number] 2{spray } Use 2 Sprays in each nostril daily. [facility] fluticasone propionate 50 mcg/actuati on nasal spray 2018-07 00:00: 00 Yes [id number] 2{spray } Use 2 Sprays in each nostril daily. [facility] fluticasone propionate 50 mcg/actuati on nasal spray 2018-07 00:00: 00 Yes [id number] 2{spray } Use 2 Sprays in each nostril daily. [facility] fluticasone propionate 50 mcg/actuati on nasal spray 2018-07 00:00: 00 Yes [id number] 2{spray } Use 2 Sprays in each nostril daily. [facility] fluticasone propionate 50 mcg/actuati on nasal spray 2018-07 00:00: 00 Yes [id number] 2{spray } Use 2 Sprays in each nostril daily. [facility] fluticasone propionate 50 mcg/actuati on nasal spray 2018-07 00:00: 00 04-21 00:00 :00 No [id number] 2{spray } Use 2 Sprays in each nostril daily. [facility] ARIPiprazol e 10 mg tablet 2018-07 00:00: 00 Yes 10mg Take 10 mg by mouth daily. [facility] ARIPiprazol e 10 mg tablet 2018-07 00:00: 00 Yes 10mg Take 10 mg by mouth daily. [facility] ARIPiprazol e 10 mg tablet 2018-07 00:00: 00 Yes 10mg Take 10 mg by mouth daily. [facility] ARIPiprazol e 10 mg tablet 2018-07 00:00: 00 Yes 10mg Take 10 mg by mouth daily. [facility] ARIPiprazol e 10 mg tablet 2018-07 00:00: 00 Yes 10mg Take 10 mg by mouth daily. [facility] ARIPiprazol e 10 mg tablet 2018-07 00:00: 00 Yes 10mg Take 10 mg by mouth daily. [facility] ARIPiprazol e 10 mg tablet 2018-07 00:00: 00 Yes 10mg Take 10 mg by mouth daily. [facility] ARIPiprazol e 10 mg tablet 2018-07 00:00: 00 Yes 10mg Take 10 mg by mouth daily. [facility] ARIPiprazol e 10 mg tablet 2018-07 00:00: 00 Yes 10mg Take 10 mg by mouth daily. [facility] ARIPiprazol e 10 mg tablet 2018-07 00:00: 00 04-21 00:00 :00 No 10mg Take 10 mg by mouth daily. [facility] SERTraline (ZOLOFT) 50 mg tablet 04-11 00:00: 00 Yes [id number] Take 1 tab po daily [facility] SERTraline (ZOLOFT) 50 mg tablet 04-11 00:00: 00 Yes [id number] Take 1 tab po daily [facility] SERTraline (ZOLOFT) 50 mg tablet 04-11 00:00: 00 Yes [id number] Take 1 tab po daily [facility] SERTraline (ZOLOFT) 50 mg tablet 04-11 00:00: 00 Yes [id number] Take 1 tab po daily [facility] SERTraline (ZOLOFT) 50 mg tablet 04-11 00:00: 00 Yes [id number] Take 1 tab po daily [facility] SERTraline (ZOLOFT) 50 mg tablet 04-11 00:00: 00 Yes [id number] Take 1 tab po daily [facility] SERTraline (ZOLOFT) 50 mg tablet 04-11 00:00: 00 Yes [id number] Take 1 tab po daily [facility] SERTraline (ZOLOFT) 50 mg tablet 04-11 00:00: 00 Yes [id number] Take 1 tab po daily [facility] SERTraline (ZOLOFT) 50 mg tablet 04-11 00:00: 00 Yes [id number] Take 1 tab po daily [facility] SERTraline (ZOLOFT) 50 mg tablet 04-11 00:00: 00 04-21 00:00 :00 No [id number] Take 1 tab po [facility] Ordered Immunization Name Filled Immunization Name Date Status Comments Source TDAP 2022-02-02 00:00:00 Completed [facility] TDAP 2022-02-02 00:00:00 Completed [facility] TDAP 2022-02-02 00:00:00 Completed [facility] TDAP 2022-02-02 00:00:00 Completed [facility] TDAP 2022-02-02 00:00:00 Completed [facility] TDAP 2022-02-02 00:00:00 Completed [facility] TDAP 2022-02-02 00:00:00 Completed [facility] TDAP 2022-02-02 00:00:00 Completed [facility] TDAP 2022-02-02 00:00:00 Completed [facility] TDAP 2022-02-02 00:00:00 Completed [facility] TDAP 2022-02-02 00:00:00 Completed [facility] TDAP 2022-02-02 00:00:00 Completed [facility] TDAP 2022-02-02 00:00:00 Completed [facility] TDAP 2022-02-02 00:00:00 Completed [facility] TDAP 2022-02-02 00:00:00 Completed [facility] TDAP 2022-02-02 00:00:00 Completed [facility] TDAP 2022-02-02 00:00:00 Completed [facility] TDAP 2022-02-02 00:00:00 Completed [facility] TDAP 2022-02-02 00:00:00 Completed [facility] TDAP 2022-02-02 00:00:00 Completed [facility] TDAP 2022-02-02 00:00:00 Completed [facility] TDAP 2022-02-02 00:00:00 Completed [facility] TDAP 2022-02-02 00:00:00 Completed [facility] TDAP 2022-02-02 00:00:00 Completed [facility] TDAP 2022-02-02 00:00:00 Completed [facility] TDAP 2022-02-02 00:00:00 Completed [facility] TDAP 2022-02-02 00:00:00 Completed [facility] TDAP 2022-02-02 00:00:00 Completed [facility] TDAP 2022-02-02 00:00:00 Completed [facility] TDAP 2022-02-02 00:00:00 Completed [facility] TDAP 2022-02-02 00:00:00 Completed [facility] TDAP 2022-02-02 00:00:00 Completed [facility] TDAP 2022-02-02 00:00:00 Completed [facility] TDAP 2022-02-02 00:00:00 Completed [facility] TDAP 2022-02-02 00:00:00 Completed [facility] TDAP 2022-02-02 00:00:00 Completed [facility] TDAP 2022-02-02 00:00:00 Completed [facility] TDAP 2022-02-02 00:00:00 Completed [facility] TDAP 2022-02-02 00:00:00 Completed [facility] TDAP 2022-02-02 00:00:00 Completed [facility] TDAP 2022-02-02 00:00:00 Completed [facility] TDAP 2022-02-02 00:00:00 Completed [facility] TDAP 2022-02-02 00:00:00 Completed [facility] TDAP 2022-02-02 00:00:00 Completed [facility] TDAP 2022-02-02 00:00:00 Completed [facility] TDAP 2022-02-02 00:00:00 Completed [facility] TDAP 2022-02-02 00:00:00 Completed [facility] TDAP 2022-02-02 00:00:00 Completed [facility] TDAP 2022-02-02 00:00:00 Completed [facility] TDAP 2022-02-02 00:00:00 Completed [facility] TDAP 2022-02-02 00:00:00 Completed [facility] Influenza Virus Vaccine Quad IM, Preserv and ABX Free 6 MO-64 YRS 2021-10-14 00:00:00 Completed [facility] Influenza Virus Vaccine Quad IM, Preserv and ABX Free 6 MO-64 YRS 2021-10-14 00:00:00 Completed [facility] Influenza Virus Vaccine Quad IM, Preserv and ABX Free 6 MO-64 YRS 2021-10-14 00:00:00 Completed [facility] Influenza Virus Vaccine Quad IM, Preserv and ABX Free 6 MO-64 YRS 2021-10-14 00:00:00 Completed [facility] Influenza Virus Vaccine Quad IM, Preserv and ABX Free 6 MO-64 YRS 2021-10-14 00:00:00 Completed [facility] Influenza Virus Vaccine Quad IM, Preserv and ABX Free 6 MO-64 YRS 2021-10-14 00:00:00 Completed [facility] Influenza Virus Vaccine Quad IM, Preserv and ABX Free 6 MO-64 YRS 2021-10-14 00:00:00 Completed [facility] Influenza Virus Vaccine Quad IM, Preserv and ABX Free 6 MO-64 YRS 2021-10-14 00:00:00 Completed [facility] Influenza Virus Vaccine Quad IM, Preserv and ABX Free 6 MO-64 YRS 2021-10-14 00:00:00 Completed [facility] Influenza Virus Vaccine Quad IM, Preserv and ABX Free 6 MO-64 YRS 2021-10-14 00:00:00 Completed [facility] Influenza Virus Vaccine Quad IM, Preserv and ABX Free 6 MO-64 YRS 2021-10-14 00:00:00 Completed [facility] Influenza Virus Vaccine Quad IM, Preserv and ABX Free 6 MO-64 YRS 2021-10-14 00:00:00 Completed [facility] Influenza Virus Vaccine Quad IM, Preserv and ABX Free 6 MO-64 YRS 2021-10-14 00:00:00 Completed [facility] Influenza Virus Vaccine Quad IM, Preserv and ABX Free 6 MO-64 YRS 2021-10-14 00:00:00 Completed [facility] Influenza Virus Vaccine Quad IM, Preserv and ABX Free 6 MO-64 YRS 2021-10-14 00:00:00 Completed [facility] Influenza Virus Vaccine Quad IM, Preserv and ABX Free 6 MO-64 YRS 2021-10-14 00:00:00 Completed [facility] Influenza Virus Vaccine Quad IM, Preserv and ABX Free 6 MO-64 YRS 2021-10-14 00:00:00 Completed [facility] Influenza Virus Vaccine Quad IM, Preserv and ABX Free 6 MO-64 YRS 2021-10-14 00:00:00 Completed [facility] Influenza Virus Vaccine Quad IM, Preserv and ABX Free 6 MO-64 YRS 2021-10-14 00:00:00 Completed [facility] Influenza Virus Vaccine Quad IM, Preserv and ABX Free 6 MO-64 YRS 2021-10-14 00:00:00 Completed [facility] Influenza Virus Vaccine Quad IM, Preserv and ABX Free 6 MO-64 YRS 2021-10-14 00:00:00 Completed [facility] Influenza Virus Vaccine Quad IM, Preserv and ABX Free 6 MO-64 YRS 2021-10-14 00:00:00 Completed [facility] Influenza Virus Vaccine Quad IM, Preserv and ABX Free 6 MO-64 YRS 2021-10-14 00:00:00 Completed [facility] Influenza Virus Vaccine Quad IM, Preserv and ABX Free 6 MO-64 YRS 2021-10-14 00:00:00 Completed [facility] Influenza Virus Vaccine Quad IM, Preserv and ABX Free 6 MO-64 YRS 2021-10-14 00:00:00 Completed [facility] Influenza Virus Vaccine Quad IM, Preserv and ABX Free 6 MO-64 YRS 2021-10-14 00:00:00 Completed [facility] Influenza Virus Vaccine Quad IM, Preserv and ABX Free 6 MO-64 YRS 2021-10-14 00:00:00 Completed [facility] Influenza Virus Vaccine Quad IM, Preserv and ABX Free 6 MO-64 YRS 2021-10-14 00:00:00 Completed [facility] Influenza Virus Vaccine Quad IM, Preserv and ABX Free 6 MO-64 YRS 2021-10-14 00:00:00 Completed [facility] Influenza Virus Vaccine Quad IM, Preserv and ABX Free 6 MO-64 2021-10-14 00:00:00 Completed [facility] Influenza Virus Vaccine Quad IM, Preserv and ABX Free 6 MO-64 YRS 2021-10-14 00:00:00 Completed [facility] Influenza Virus Vaccine Quad IM, Preserv and ABX Free 6 MO-64 2021-10-14 00:00:00 Completed [facility] Influenza Virus Vaccine Quad IM, Preserv and ABX Free 6 MO-64 YRS 2021-10-14 00:00:00 Completed [facility] Influenza Virus Vaccine Quad IM, Preserv and ABX Free 6 MO-64 YRS 2021-10-14 00:00:00 Completed [facility] Influenza Virus Vaccine Quad IM, Preserv and ABX Free 6 MO-64 YRS 2021-10-14 00:00:00 Completed [facility] Influenza Virus Vaccine Quad IM, Preserv and ABX Free 6 MO-64 YRS 2021-10-14 00:00:00 Completed [facility] Influenza Virus Vaccine Quad IM, Preserv and ABX Free 6 MO-64 YRS 2021-10-14 00:00:00 Completed [facility] Influenza Virus Vaccine Quad IM, Preserv and ABX Free 6 MO-64 YRS 2021-10-14 00:00:00 Completed [facility] Influenza Virus Vaccine Quad IM, Preserv and ABX Free 6 MO-64 YRS 2021-10-14 00:00:00 Completed [facility] Influenza Virus Vaccine Quad IM, Preserv and ABX Free 6 MO-64 YRS 2021-10-14 00:00:00 Completed [facility] Influenza Virus Vaccine Quad IM, Preserv and ABX Free 6 MO-64 2021-10-14 00:00:00 Completed [facility] Influenza Virus Vaccine Quad IM, Preserv and ABX Free 6 MO-64 YRS 2021-10-14 00:00:00 Completed [facility] Influenza Virus Vaccine Quad IM, Preserv and ABX Free 6 MO-64 YRS 2021-10-14 00:00:00 Completed [facility] Influenza Virus Vaccine Quad IM, Preserv and ABX Free 6 MO-64 YRS 2021-10-14 00:00:00 Completed [facility] Influenza Virus Vaccine Quad IM, Preserv and ABX Free 6 MO-64 YRS 2021-10-14 00:00:00 Completed [facility] Influenza Virus Vaccine Quad IM, Preserv and ABX Free 6 MO-64 YRS 2021-10-14 00:00:00 Completed [facility] Influenza Virus Vaccine Quad IM, Preserv and ABX Free 6 MO-64 YRS 2021-10-14 00:00:00 Completed [facility] Influenza Virus Vaccine Quad IM, Preserv and ABX Free 6 MO-64 YRS 2021-10-14 00:00:00 Completed [facility] Influenza Virus Vaccine Quad IM, Preserv and ABX Free 6 MO-64 YRS (FLUCELVAX) 2021-10-14 00:00:00 Completed [facility] Influenza Virus Vaccine Quad IM, Preserv and ABX Free 6 MO-64 YRS (FLUCELVAX) 2021-10-14 00:00:00 Completed [facility] Influenza Virus Vaccine Quad IM, Preserv and ABX Free 6 MO-64 YRS (FLUCELVAX) 2021-10-14 00:00:00 Completed [facility] Influenza Virus Vaccine Quad .5 mL IM 6+ MO 2019-04-25 00:00:00 Completed [facility] Influenza Virus Vaccine Quad .5 mL IM 6+ MO 2019-04-25 00:00:00 Completed [facility] Influenza Virus Vaccine Quad .5 mL IM 6+ MO 2019-04-25 00:00:00 Completed [facility] Influenza Virus Vaccine Quad .5 mL IM 6+ MO 2019-04-25 00:00:00 Completed [facility] Influenza Virus Vaccine Quad .5 mL IM 6+ MO 2019-04-25 00:00:00 Completed [facility] Influenza Virus Vaccine Quad .5 mL IM 6+ MO 2019-04-25 00:00:00 Completed [facility] Influenza Virus Vaccine Quad .5 mL IM 6+ MO 2019-04-25 00:00:00 Completed [facility] Influenza Virus Vaccine Quad .5 mL IM 6+ MO 2019-04-25 00:00:00 Completed [facility] Influenza Virus Vaccine Quad .5 mL IM 6+ MO 2019-04-25 00:00:00 Completed [facility] Influenza Virus Vaccine Quad .5 mL IM 6+ MO 2019-04-25 00:00:00 Completed [facility] Influenza Virus Vaccine Quad .5 mL IM 6+ MO 2019-04-25 00:00:00 Completed [facility] Influenza Virus Vaccine Quad .5 mL IM 6+ MO 2019-04-25 00:00:00 Completed [facility] Influenza Virus Vaccine Quad .5 mL IM 6+ MO 2019-04-25 00:00:00 Completed [facility] Influenza Virus Vaccine Quad .5 mL IM 6+ MO 2019-04-25 00:00:00 Completed [facility] Influenza Virus Vaccine Quad .5 mL IM 6+ MO 2019-04-25 00:00:00 Completed [facility] Influenza Virus Vaccine Quad .5 mL IM 6+ MO 2019-04-25 00:00:00 Completed [facility] Influenza Virus Vaccine Quad .5 mL IM 6+ MO 2019-04-25 00:00:00 Completed [facility] Influenza Virus Vaccine Quad .5 mL IM 6+ MO 2019-04-25 00:00:00 Completed [facility] Influenza Virus Vaccine Quad .5 mL IM 6+ MO 2019-04-25 00:00:00 Completed [facility] Influenza Virus Vaccine Quad .5 mL IM 6+ MO 2019-04-25 00:00:00 Completed [facility] Influenza Virus Vaccine Quad .5 mL IM 6+ MO 2019-04-25 00:00:00 Completed [facility] Influenza Virus Vaccine Quad .5 mL IM 6+ MO 2019-04-25 00:00:00 Completed [facility] Influenza Virus Vaccine Quad .5 mL IM 6+ MO 2019-04-25 00:00:00 Completed [facility] Influenza Virus Vaccine Quad .5 mL IM 6+ MO 2019-04-25 00:00:00 Completed [facility] Influenza Virus Vaccine Quad .5 mL IM 6+ MO 2019-04-25 00:00:00 Completed [facility] Influenza Virus Vaccine Quad .5 mL IM 6+ MO 2019-04-25 00:00:00 Completed [facility] Influenza Virus Vaccine Quad .5 mL IM 6+ MO 2019-04-25 00:00:00 Completed [facility] Influenza Virus Vaccine Quad .5 mL IM 6+ MO 2019-04-25 00:00:00 Completed [facility] Influenza Virus Vaccine Quad .5 mL IM 6+ MO 2019-04-25 00:00:00 Completed [facility] Influenza Virus Vaccine Quad .5 mL IM 6+ MO 2019-04-25 00:00:00 Completed [facility] Influenza Virus Vaccine Quad .5 mL IM 6+ MO 2019-04-25 00:00:00 Completed [facility] Influenza Virus Vaccine Quad .5 mL IM 6+ MO 2019-04-25 00:00:00 Completed [facility] Influenza Virus Vaccine Quad .5 mL IM 6+ MO 2019-04-25 00:00:00 Completed [facility] Influenza Virus Vaccine Quad .5 mL IM 6+ MO 2019-04-25 00:00:00 Completed [facility] Influenza Virus Vaccine Quad .5 mL IM 6+ MO 2019-04-25 00:00:00 Completed [facility] Influenza Virus Vaccine Quad .5 mL IM 6+ MO 2019-04-25 00:00:00 Completed [facility] Influenza Virus Vaccine Quad .5 mL IM 6+ MO 2019-04-25 00:00:00 Completed [facility] Influenza Virus Vaccine Quad .5 mL IM 6+ MO 2019-04-25 00:00:00 Completed [facility] Influenza Virus Vaccine Quad .5 mL IM 6+ MO 2019-04-25 00:00:00 Completed [facility] Influenza Virus Vaccine Quad .5 mL IM 6+ MO 2019-04-25 00:00:00 Completed [facility] Influenza Virus Vaccine Quad .5 mL IM 6+ MO 2019-04-25 00:00:00 Completed [facility] Influenza Virus Vaccine Quad .5 mL IM 6+ MO 2019-04-25 00:00:00 Completed [facility] Influenza Virus Vaccine Quad .5 mL IM 6+ MO 2019-04-25 00:00:00 Completed [facility] Influenza Virus Vaccine Quad .5 mL IM 6+ MO 2019-04-25 00:00:00 Completed [facility] Influenza Virus Vaccine Quad .5 mL IM 6+ MO 2019-04-25 00:00:00 Completed [facility] Influenza Virus Vaccine Quad .5 mL IM 6+ MO 2019-04-25 00:00:00 Completed [facility] Influenza Virus Vaccine Quad .5 mL IM 6+ MO 2019-04-25 00:00:00 Completed [facility] Influenza Virus Vaccine Quad .5 mL IM 6+ MO 2019-04-25 00:00:00 Completed [facility] Influenza Virus Vaccine Quad .5 mL IM 6+ MO (FLUZONE/FLULAVAL/F LUARIX) 2019-04-25 00:00:00 Completed [facility] Influenza Virus Vaccine Quad .5 mL IM 6+ MO (FLUZONE/FLULAVAL/F LUARIX) 2019-04-25 00:00:00 Completed [facility] Influenza Virus Vaccine Quad .5 mL IM 6+ MO (FLUZONE/FLULAVAL/F LUARIX) 2019-04-25 00:00:00 Completed [facility] Influenza Virus Vaccine Quad .5 mL IM 6+ MO 2018-11-07 00:00:00 Completed [facility] Influenza Virus Vaccine Quad .5 mL IM 6+ MO 2018-11-07 00:00:00 Completed [facility] Influenza Virus Vaccine Quad .5 mL IM 6+ MO 2018-11-07 00:00:00 Completed [facility] Influenza Virus Vaccine Quad .5 mL IM 6+ MO 2018-11-07 00:00:00 Completed [facility] Influenza Virus Vaccine Quad .5 mL IM 6+ MO 2018-11-07 00:00:00 Completed [facility] Influenza Virus Vaccine Quad .5 mL IM 6+ MO 2018-11-07 00:00:00 Completed [facility] Influenza Virus Vaccine Quad .5 mL IM 6+ MO 2018-11-07 00:00:00 Completed [facility] Influenza Virus Vaccine Quad .5 mL IM 6+ MO 2018-11-07 00:00:00 Completed [facility] Influenza Virus Vaccine Quad .5 mL IM 6+ MO 2018-11-07 00:00:00 Completed [facility] Influenza Virus Vaccine Quad .5 mL IM 6+ MO 2018-11-07 00:00:00 Completed [facility] Influenza Virus Vaccine Quad .5 mL IM 6+ MO 2018-11-07 00:00:00 Completed [facility] Influenza Virus Vaccine Quad .5 mL IM 6+ MO 2018-11-07 00:00:00 Completed [facility] Influenza Virus Vaccine Quad .5 mL IM 6+ MO 2018-11-07 00:00:00 Completed [facility] Influenza Virus Vaccine Quad .5 mL IM 6+ MO 2018-11-07 00:00:00 Completed [facility] Influenza Virus Vaccine Quad .5 mL IM 6+ MO 2018-11-07 00:00:00 Completed [facility] Influenza Virus Vaccine Quad .5 mL IM 6+ MO 2018-11-07 00:00:00 Completed [facility] Influenza Virus Vaccine Quad .5 mL IM 6+ MO 2018-11-07 00:00:00 Completed [facility] Influenza Virus Vaccine Quad .5 mL IM 6+ MO 2018-11-07 00:00:00 Completed [facility] Influenza Virus Vaccine Quad .5 mL IM 6+ MO 2018-11-07 00:00:00 Completed [facility] Influenza Virus Vaccine Quad .5 mL IM 6+ MO 2018-11-07 00:00:00 Completed [facility] Influenza Virus Vaccine Quad .5 mL IM 6+ MO 2018-11-07 00:00:00 Completed [facility] Influenza Virus Vaccine Quad .5 mL IM 6+ MO 2018-11-07 00:00:00 Completed [facility] Influenza Virus Vaccine Quad .5 mL IM 6+ MO 2018-11-07 00:00:00 Completed [facility] Influenza Virus Vaccine Quad .5 mL IM 6+ MO 2018-11-07 00:00:00 Completed [facility] Influenza Virus Vaccine Quad .5 mL IM 6+ MO 2018-11-07 00:00:00 Completed [facility] Influenza Virus Vaccine Quad .5 mL IM 6+ MO 2018-11-07 00:00:00 Completed [facility] Influenza Virus Vaccine Quad .5 mL IM 6+ MO 2018-11-07 00:00:00 Completed [facility] Influenza Virus Vaccine Quad .5 mL IM 6+ MO 2018-11-07 00:00:00 Completed [facility] Influenza Virus Vaccine Quad .5 mL IM 6+ MO 2018-11-07 00:00:00 Completed [facility] Influenza Virus Vaccine Quad .5 mL IM 6+ MO 2018-11-07 00:00:00 Completed [facility] Influenza Virus Vaccine Quad .5 mL IM 6+ MO 2018-11-07 00:00:00 Completed [facility] Influenza Virus Vaccine Quad .5 mL IM 6+ MO 2018-11-07 00:00:00 Completed [facility] Influenza Virus Vaccine Quad .5 mL IM 6+ MO 2018-11-07 00:00:00 Completed [facility] Influenza Virus Vaccine Quad .5 mL IM 6+ MO 2018-11-07 00:00:00 Completed [facility] Influenza Virus Vaccine Quad .5 mL IM 6+ MO 2018-11-07 00:00:00 Completed [facility] Influenza Virus Vaccine Quad .5 mL IM 6+ MO 2018-11-07 00:00:00 Completed [facility] Influenza Virus Vaccine Quad .5 mL IM 6+ MO 2018-11-07 00:00:00 Completed [facility] Influenza Virus Vaccine Quad .5 mL IM 6+ MO 2018-11-07 00:00:00 Completed [facility] Influenza Virus Vaccine Quad .5 mL IM 6+ MO 2018-11-07 00:00:00 Completed [facility] Influenza Virus Vaccine Quad .5 mL IM 6+ MO 2018-11-07 00:00:00 Completed [facility] Influenza Virus Vaccine Quad .5 mL IM 6+ MO 2018-11-07 00:00:00 Completed [facility] Influenza Virus Vaccine Quad .5 mL IM 6+ MO 2018-11-07 00:00:00 Completed [facility] Influenza Virus Vaccine Quad .5 mL IM 6+ MO 2018-11-07 00:00:00 Completed [facility] Influenza Virus Vaccine Quad .5 mL IM 6+ MO 2018-11-07 00:00:00 Completed [facility] Influenza Virus Vaccine Quad .5 mL IM 6+ MO 2018-11-07 00:00:00 Completed [facility] Influenza Virus Vaccine Quad .5 mL IM 6+ MO 2018-11-07 00:00:00 Completed [facility] Influenza Virus Vaccine Quad .5 mL IM 6+ MO 2018-11-07 00:00:00 Completed [facility] Influenza Virus Vaccine Quad .5 mL IM 6+ MO 2018-11-07 00:00:00 Completed [facility] Influenza Virus Vaccine Quad .5 mL IM 6+ MO (FLUZONE/FLULAVAL/F LUARIX) 2018-11-07 00:00:00 Completed [facility] Influenza Virus Vaccine Quad .5 mL IM 6+ MO (FLUZONE/FLULAVAL/F LUARIX) 2018-11-07 00:00:00 Completed [facility] Influenza Virus Vaccine Quad .5 mL IM 6+ MO (FLUZONE/FLULAVAL/F LUARIX) 2018-11-07 00:00:00 Completed [facility] TDAP 2017-06-13 00:00:00 Completed [facility] TDAP 2017-06-13 00:00:00 Completed [facility] TDAP 2017-06-13 00:00:00 Completed [facility] TDAP 2017-06-13 00:00:00 Completed [facility] TDAP 2017-06-13 00:00:00 Completed [facility] TDAP 2017-06-13 00:00:00 Completed [facility] TDAP 2017-06-13 00:00:00 Completed [facility] TDAP 2017-06-13 00:00:00 Completed [facility] TDAP 2017-06-13 00:00:00 Completed [facility] TDAP 2017-06-13 00:00:00 Completed [facility] TDAP 2017-06-13 00:00:00 Completed [facility] TDAP 2017-06-13 00:00:00 Completed [facility] TDAP 2017-06-13 00:00:00 Completed [facility] TDAP 2017-06-13 00:00:00 Completed [facility] TDAP 2017-06-13 00:00:00 Completed [facility] TDAP 2017-06-13 00:00:00 Completed [facility] TDAP 2017-06-13 00:00:00 Completed [facility] TDAP 2017-06-13 00:00:00 Completed [facility] TDAP 2017-06-13 00:00:00 Completed [facility] TDAP 2017-06-13 00:00:00 Completed [facility] TDAP 2017-06-13 00:00:00 Completed [facility] TDAP 2017-06-13 00:00:00 Completed [facility] TDAP 2017-06-13 00:00:00 Completed [facility] TDAP 2017-06-13 00:00:00 Completed [facility] TDAP 2017-06-13 00:00:00 Completed [facility] TDAP 2017-06-13 00:00:00 Completed [facility] TDAP 2017-06-13 00:00:00 Completed [facility] TDAP 2017-06-13 00:00:00 Completed [facility] TDAP 2017-06-13 00:00:00 Completed [facility] TDAP 2017-06-13 00:00:00 Completed [facility] TDAP 2017-06-13 00:00:00 Completed [facility] TDAP 2017-06-13 00:00:00 Completed [facility] TDAP 2017-06-13 00:00:00 Completed [facility] TDAP 2017-06-13 00:00:00 Completed [facility] TDAP 2017-06-13 00:00:00 Completed [facility] TDAP 2017-06-13 00:00:00 Completed [facility] TDAP 2017-06-13 00:00:00 Completed [facility] TDAP 2017-06-13 00:00:00 Completed [facility] TDAP 2017-06-13 00:00:00 Completed [facility] TDAP 2017-06-13 00:00:00 Completed [facility] TDAP 2017-06-13 00:00:00 Completed [facility] TDAP 2017-06-13 00:00:00 Completed [facility] TDAP 2017-06-13 00:00:00 Completed [facility] TDAP 2017-06-13 00:00:00 Completed [facility] TDAP 2017-06-13 00:00:00 Completed [facility] TDAP 2017-06-13 00:00:00 Completed [facility] TDAP 2017-06-13 00:00:00 Completed [facility] TDAP 2017-06-13 00:00:00 Completed [facility] TDAP 2017-06-13 00:00:00 Completed [facility] TDAP 2017-06-13 00:00:00 Completed [facility] TDAP 2017-06-13 00:00:00 Completed [facility] Influenza Virus Vaccine Quad IM 3+ YRS 2017-05-23 00:00:00 Completed [facility] Influenza Virus Vaccine Quad IM 3+ YRS 2017-05-23 00:00:00 Completed [facility] Influenza Virus Vaccine Quad IM 3+ YRS 2017-05-23 00:00:00 Completed [facility] Influenza Virus Vaccine Quad IM 3+ YRS 2017-05-23 00:00:00 Completed [facility] Influenza Virus Vaccine Quad IM 3+ YRS 2017-05-23 00:00:00 Completed [facility] Influenza Virus Vaccine Quad IM 3+ YRS 2017-05-23 00:00:00 Completed [facility] Influenza Virus Vaccine Quad IM 3+ YRS 2017-05-23 00:00:00 Completed [facility] Influenza Virus Vaccine Quad IM 3+ YRS 2017-05-23 00:00:00 Completed [facility] Influenza Virus Vaccine Quad IM 3+ YRS 2017-05-23 00:00:00 Completed [facility] Influenza Virus Vaccine Quad IM 3+ YRS 2017-05-23 00:00:00 Completed [facility] Influenza Virus Vaccine Quad IM 3+ YRS 2017-05-23 00:00:00 Completed [facility] Influenza Virus Vaccine Quad IM 3+ YRS 2017-05-23 00:00:00 Completed [facility] Influenza Virus Vaccine Quad IM 3+ YRS 2017-05-23 00:00:00 Completed [facility] Influenza Virus Vaccine Quad IM 3+ YRS 2017-05-23 00:00:00 Completed [facility] Influenza Virus Vaccine Quad IM 3+ YRS 2017-05-23 00:00:00 Completed [facility] Influenza Virus Vaccine Quad IM 3+ YRS 2017-05-23 00:00:00 Completed [facility] Influenza Virus Vaccine Quad IM 3+ YRS 2017-05-23 00:00:00 Completed [facility] Influenza Virus Vaccine Quad IM 3+ YRS 2017-05-23 00:00:00 Completed [facility] Influenza Virus Vaccine Quad IM 3+ YRS 2017-05-23 00:00:00 Completed [facility] Influenza Virus Vaccine Quad IM 3+ YRS 2017-05-23 00:00:00 Completed [facility] Influenza Virus Vaccine Quad IM 3+ YRS 2017-05-23 00:00:00 Completed [facility] Influenza Virus Vaccine Quad IM 3+ YRS 2017-05-23 00:00:00 Completed [facility] Influenza Virus Vaccine Quad IM 3+ YRS 2017-05-23 00:00:00 Completed [facility] Influenza Virus Vaccine Quad IM 3+ YRS 2017-05-23 00:00:00 Completed [facility] Influenza Virus Vaccine Quad IM 3+ YRS 2017-05-23 00:00:00 Completed [facility] Influenza Virus Vaccine Quad IM 3+ YRS 2017-05-23 00:00:00 Completed [facility] Influenza Virus Vaccine Quad IM 3+ YRS 2017-05-23 00:00:00 Completed [facility] Influenza Virus Vaccine Quad IM 3+ YRS 2017-05-23 00:00:00 Completed [facility] Influenza Virus Vaccine Quad IM 3+ YRS 2017-05-23 00:00:00 Completed [facility] Influenza Virus Vaccine Quad IM 3+ YRS 2017-05-23 00:00:00 Completed [facility] Influenza Virus Vaccine Quad IM 3+ YRS 2017-05-23 00:00:00 Completed [facility] Influenza Virus Vaccine Quad IM 3+ YRS 2017-05-23 00:00:00 Completed [facility] Influenza Virus Vaccine Quad IM 3+ YRS 2017-05-23 00:00:00 Completed [facility] Influenza Virus Vaccine Quad IM 3+ YRS 2017-05-23 00:00:00 Completed [facility] Influenza Virus Vaccine Quad IM 3+ YRS 2017-05-23 00:00:00 Completed [facility] Influenza Virus Vaccine Quad IM 3+ YRS 2017-05-23 00:00:00 Completed [facility] Influenza Virus Vaccine Quad IM 3+ YRS 2017-05-23 00:00:00 Completed [facility] Influenza Virus Vaccine Quad IM 3+ YRS 2017-05-23 00:00:00 Completed [facility] Influenza Virus Vaccine Quad IM 3+ YRS 2017-05-23 00:00:00 Completed [facility] Influenza Virus Vaccine Quad IM 3+ YRS 2017-05-23 00:00:00 Completed [facility] Influenza Virus Vaccine Quad IM 3+ YRS 2017-05-23 00:00:00 Completed [facility] Influenza Virus Vaccine Quad IM 3+ YRS 2017-05-23 00:00:00 Completed [facility] Influenza Virus Vaccine Quad IM 3+ YRS 2017-05-23 00:00:00 Completed [facility] Influenza Virus Vaccine Quad IM 3+ YRS 2017-05-23 00:00:00 Completed [facility] Influenza Virus Vaccine Quad IM 3+ YRS 2017-05-23 00:00:00 Completed [facility] Influenza Virus Vaccine Quad IM 3+ YRS 2017-05-23 00:00:00 Completed [facility] Influenza Virus Vaccine Quad IM 3+ YRS 2017-05-23 00:00:00 Completed [facility] Influenza Virus Vaccine Quad IM 3+ YRS 2017-05-23 00:00:00 Completed [facility] Influenza Virus Vaccine Quad IM 3+ YRS 2017-05-23 00:00:00 Completed [facility] Influenza Virus Vaccine Quad IM 3+ YRS 2017-05-23 00:00:00 Completed [facility] Influenza Virus Vaccine Quad IM 3+ YRS 2017-05-23 00:00:00 Completed [facility] Influenza Virus Vaccine Quad IM 3+ YRS Unknown Completed [facility] TDAP Unknown Completed [facility] Influenza Virus Vaccine Quad .5 mL IM 6+ MO (FLUZONE/FLULAVAL/F LUARIX) Unknown Completed [facility] Influenza Virus Vaccine Quad .5 mL IM 6+ MO (FLUZONE/FLULAVAL/F LUARIX) Unknown Completed [facility] Influenza Virus Vaccine Quad IM, Preserv and ABX Free 6 MO-64 YRS (FLUCELVAX) Unknown Completed [facility] TDAP Unknown Completed [facility] Influenza Virus Vaccine Quad IM 3+ YRS Unknown Completed [facility] TDAP Unknown Completed [facility] Influenza Virus Vaccine Quad .5 mL IM 6+ MO (FLUZONE/FLULAVAL/F LUARIX) Unknown Completed [facility] Influenza Virus Vaccine Quad .5 mL IM 6+ MO (FLUZONE/FLULAVAL/F LUARIX) Unknown Completed [facility] Influenza Virus Vaccine Quad IM, Preserv and ABX Free 6 MO-64 YRS (FLUCELVAX) Unknown Completed [facility] TDAP Unknown Completed [facility] Influenza Virus Vaccine Quad IM 3+ YRS Unknown Completed [facility] TDAP Unknown Completed [facility] Influenza Virus Vaccine Quad .5 mL IM 6+ MO (FLUZONE/FLULAVAL/F LUARIX) Unknown Completed [facility] Influenza Virus Vaccine Quad .5 mL IM 6+ MO (FLUZONE/FLULAVAL/F LUARIX) Unknown Completed [facility] Influenza Virus Vaccine Quad IM, Preserv and ABX Free 6 MO-64 YRS (FLUCELVAX) Unknown Completed [facility] TDAP Unknown Completed [facility] Influenza Virus Vaccine Quad IM 3+ YRS Unknown Completed [facility] TDAP Unknown Completed [facility] Influenza Virus Vaccine Quad .5 mL IM 6+ MO (FLUZONE/FLULAVAL/F LUARIX) Unknown Completed [facility] Influenza Virus Vaccine Quad .5 mL IM 6+ MO (FLUZONE/FLULAVAL/F LUARIX) Unknown Completed [facility] Influenza Virus Vaccine Quad IM, Preserv and ABX Free 6 MO-64 YRS (FLUCELVAX) Unknown Completed [facility] TDAP Unknown Completed [facility] Influenza Virus Vaccine Quad IM 3+ YRS Unknown Completed [facility] TDAP Unknown Completed [facility] Influenza Virus Vaccine Quad .5 mL IM 6+ MO (FLUZONE/FLULAVAL/F LUARIX) Unknown Completed [facility] Influenza Virus Vaccine Quad .5 mL IM 6+ MO (FLUZONE/FLULAVAL/F LUARIX) Unknown Completed [facility] Influenza Virus Vaccine Quad IM, Preserv and ABX Free 6 MO-64 YRS (FLUCELVAX) Unknown Completed [facility] TDAP Unknown Completed [facility] Influenza Virus Vaccine Quad IM 3+ YRS Unknown Completed [facility] TDAP Unknown Completed [facility] Influenza Virus Vaccine Quad .5 mL IM 6+ MO (FLUZONE/FLULAVAL/F LUARIX) Unknown Completed [facility] Influenza Virus Vaccine Quad .5 mL IM 6+ MO (FLUZONE/FLULAVAL/F LUARIX) Unknown Completed [facility] Influenza Virus Vaccine Quad IM, Preserv and ABX Free 6 MO-64 YRS (FLUCELVAX) Unknown Completed [facility] TDAP Unknown Completed [facility] Influenza Virus Vaccine Quad IM 3+ YRS Unknown Completed [facility] TDAP Unknown Completed [facility] Influenza Virus Vaccine Quad .5 mL IM 6+ MO (FLUZONE/FLULAVAL/F LUARIX) Unknown Completed [facility] Influenza Virus Vaccine Quad .5 mL IM 6+ MO (FLUZONE/FLULAVAL/F LUARIX) Unknown Completed [facility] Influenza Virus Vaccine Quad IM, Preserv and ABX Free 6 MO-64 YRS (FLUCELVAX) Unknown Completed [facility] TDAP Unknown Completed [facility] Influenza Virus Vaccine Quad IM 3+ YRS Unknown Completed [facility] TDAP Unknown Completed [facility] Influenza Virus Vaccine Quad .5 mL IM 6+ MO (FLUZONE/FLULAVAL/F LUARIX) Unknown Completed [facility] Influenza Virus Vaccine Quad .5 mL IM 6+ MO (FLUZONE/FLULAVAL/F LUARIX) Unknown Completed [facility] Influenza Virus Vaccine Quad IM, Preserv and ABX Free 6 MO-64 YRS (FLUCELVAX) Unknown Completed [facility] TDAP Unknown Completed [facility] Influenza Virus Vaccine Quad IM 3+ YRS Unknown Completed [facility] TDAP Unknown Completed [facility] Influenza Virus Vaccine Quad .5 mL IM 6+ MO (FLUZONE/FLULAVAL/F LUARIX) Unknown Completed [facility] Influenza Virus Vaccine Quad .5 mL IM 6+ MO (FLUZONE/FLULAVAL/F LUARIX) Unknown Completed [facility] Influenza Virus Vaccine Quad IM, Preserv and ABX Free 6 MO-64 YRS (FLUCELVAX) Unknown Completed [facility] TDAP Unknown Completed [facility] Influenza Virus Vaccine Quad IM 3+ YRS Unknown Completed [facility] TDAP Unknown Completed [facility] Influenza Virus Vaccine Quad .5 mL IM 6+ MO (FLUZONE/FLULAVAL/F LUARIX) Unknown Completed [facility] Influenza Virus Vaccine Quad .5 mL IM 6+ MO (FLUZONE/FLULAVAL/F LUARIX) Unknown Completed [facility] Influenza Virus Vaccine Quad IM, Preserv and ABX Free 6 MO-64 YRS (FLUCELVAX) Unknown Completed [facility] TDAP Unknown Completed [facility] Influenza Virus Vaccine Quad IM 3+ YRS Unknown Completed [facility] TDAP Unknown Completed [facility] Influenza Virus Vaccine Quad .5 mL IM 6+ MO (FLUZONE/FLULAVAL/F LUARIX) Unknown Completed [facility] Influenza Virus Vaccine Quad .5 mL IM 6+ MO (FLUZONE/FLULAVAL/F LUARIX) Unknown Completed [facility] Influenza Virus Vaccine Quad IM, Preserv and ABX Free 6 MO-64 YRS (FLUCELVAX) Unknown Completed [facility] TDAP Unknown Completed [facility] Influenza Virus Vaccine Quad IM 3+ YRS Unknown Completed [facility] TDAP Unknown Completed [facility] Influenza Virus Vaccine Quad .5 mL IM 6+ MO (FLUZONE/FLULAVAL/F LUARIX) Unknown Completed [facility] Influenza Virus Vaccine Quad .5 mL IM 6+ MO (FLUZONE/FLULAVAL/F LUARIX) Unknown Completed [facility] Influenza Virus Vaccine Quad IM, Preserv and ABX Free 6 MO-64 YRS (FLUCELVAX) Unknown Completed [facility] TDAP Unknown Completed [facility] Influenza Virus Vaccine Quad IM 3+ YRS Unknown Completed [facility] TDAP Unknown Completed [facility] Influenza Virus Vaccine Quad .5 mL IM 6+ MO (FLUZONE/FLULAVAL/F LUARIX) Unknown Completed [facility] Influenza Virus Vaccine Quad .5 mL IM 6+ MO (FLUZONE/FLULAVAL/F LUARIX) Unknown Completed [facility] Influenza Virus Vaccine Quad IM, Preserv and ABX Free 6 MO-64 YRS (FLUCELVAX) Unknown Completed [facility] TDAP Unknown Completed [facility] Influenza Virus Vaccine Quad IM 3+ YRS Unknown Completed [facility] TDAP Unknown Completed [facility] Influenza Virus Vaccine Quad .5 mL IM 6+ MO (FLUZONE/FLULAVAL/F LUARIX) Unknown Completed [facility] Influenza Virus Vaccine Quad .5 mL IM 6+ MO (FLUZONE/FLULAVAL/F LUARIX) Unknown Completed [facility] Influenza Virus Vaccine Quad IM, Preserv and ABX Free 6 MO-64 YRS (FLUCELVAX) Unknown Completed [facility] TDAP Unknown Completed [facility] Influenza Virus Vaccine Quad IM 3+ YRS Unknown Completed [facility] TDAP Unknown Completed [facility] Influenza Virus Vaccine Quad .5 mL IM 6+ MO (FLUZONE/FLULAVAL/F LUARIX) Unknown Completed [facility] Influenza Virus Vaccine Quad .5 mL IM 6+ MO (FLUZONE/FLULAVAL/F LUARIX) Unknown Completed [facility] Influenza Virus Vaccine Quad IM, Preserv and ABX Free 6 MO-64 YRS (FLUCELVAX) Unknown Completed [facility] TDAP Unknown Completed [facility] Influenza Virus Vaccine Quad IM 3+ YRS Unknown Completed [facility] TDAP Unknown Completed [facility] Influenza Virus Vaccine Quad .5 mL IM 6+ MO (FLUZONE/FLULAVAL/F LUARIX) Unknown Completed [facility] Influenza Virus Vaccine Quad .5 mL IM 6+ MO (FLUZONE/FLULAVAL/F LUARIX) Unknown Completed [facility] Influenza Virus Vaccine Quad IM, Preserv and ABX Free 6 MO-64 YRS (FLUCELVAX) Unknown Completed [facility] TDAP Unknown Completed [facility] Influenza Virus Vaccine Quad IM 3+ YRS Unknown Completed [facility] TDAP Unknown Completed [facility] Influenza Virus Vaccine Quad .5 mL IM 6+ MO (FLUZONE/FLULAVAL/F LUARIX) Unknown Completed [facility] Influenza Virus Vaccine Quad .5 mL IM 6+ MO (FLUZONE/FLULAVAL/F LUARIX) Unknown Completed [facility] Influenza Virus Vaccine Quad IM, Preserv and ABX Free 6 MO-64 YRS (FLUCELVAX) Unknown Completed [facility] TDAP Unknown Completed [facility] Influenza Virus Vaccine Quad IM 3+ YRS Unknown Completed [facility] TDAP Unknown Completed [facility] Influenza Virus Vaccine Quad .5 mL IM 6+ MO (FLUZONE/FLULAVAL/F LUARIX) Unknown Completed [facility] Influenza Virus Vaccine Quad .5 mL IM 6+ MO (FLUZONE/FLULAVAL/F LUARIX) Unknown Completed [facility] Influenza Virus Vaccine Quad IM, Preserv and ABX Free 6 MO-64 YRS (FLUCELVAX) Unknown Completed [facility] TDAP Unknown Completed [facility] Influenza Virus Vaccine Quad IM 3+ YRS Unknown Completed [facility] TDAP Unknown Completed [facility] Influenza Virus Vaccine Quad .5 mL IM 6+ MO (FLUZONE/FLULAVAL/F LUARIX) Unknown Completed [facility] Influenza Virus Vaccine Quad .5 mL IM 6+ MO (FLUZONE/FLULAVAL/F LUARIX) Unknown Completed [facility] Influenza Virus Vaccine Quad IM, Preserv and ABX Free 6 MO-64 YRS (FLUCELVAX) Unknown Completed [facility] TDAP Unknown Completed [facility] Influenza Virus Vaccine Quad IM 3+ YRS Unknown Completed [facility] TDAP Unknown Completed [facility] Influenza Virus Vaccine Quad .5 mL IM 6+ MO (FLUZONE/FLULAVAL/F LUARIX) Unknown Completed [facility] Influenza Virus Vaccine Quad .5 mL IM 6+ MO (FLUZONE/FLULAVAL/F LUARIX) Unknown Completed [facility] Influenza Virus Vaccine Quad IM, Preserv and ABX Free 6 MO-64 YRS (FLUCELVAX) Unknown Completed [facility] TDAP Unknown Completed [facility] Influenza Virus Vaccine Quad IM 3+ YRS Unknown Completed [facility] TDAP Unknown Completed [facility] Influenza Virus Vaccine Quad .5 mL IM 6+ MO (FLUZONE/FLULAVAL/F LUARIX) Unknown Completed [facility] Influenza Virus Vaccine Quad .5 mL IM 6+ MO (FLUZONE/FLULAVAL/F LUARIX) Unknown Completed [facility] Influenza Virus Vaccine Quad IM, Preserv and ABX Free 6 MO-64 YRS (FLUCELVAX) Unknown Completed [facility] TDAP Unknown Completed [facility] Vital Signs Vital Name Observation Time Observation Value Comments S ource Systolic blood pressure 2023-05-23 19:00:00 103 mm[Hg] [facility] Diastolic blood pressure 2023-05-23 19:00:00 69 mm[Hg] [facility] Heart rate 2023-05-23 19:00:00 59 /min [facility] Body temperature 2023-05-23 19:00:00 36.94 [facility] Respiratory rate 2023-05-23 19:00:00 18 /min [facility] Body weight 2023-05-23 19:00:00 63.413 kg [facility] BMI 2023-05-23 19:00:00 26.41 kg/m2 [facility] Systolic blood pressure 2023-05-15 05:00:00 113 mm[Hg] [facility] Diastolic blood pressure 2023-05-15 05:00:00 76 mm[Hg] [facility] Heart rate 2023-05-15 05:00:00 67 /min [facility] Respiratory rate 2023-05-15 05:00:00 13 /min [facility] Oxygen saturation in Arterial blood by Pulse oximetry 2023-05-15 05:00:00 99 /min [facility] Body temperature 2023-05-15 04:30:00 36.94 [facility] Body height 2023-05-15 03:41:00 154.9 cm [facility] Body weight 2023-05-15 03:41:00 63.504 kg [facility] BMI 2023-05-15 03:41:00 26.45 kg/m2 [facility] Systolic blood pressure 2023-05-14 12:30:00 116 mm[Hg] [facility] Diastolic blood pressure 2023-05-14 12:30:00 60 mm[Hg] [facility] Heart rate 2023-05-14 12:30:00 68 /min [facility] Body temperature 2023-05-14 12:30:00 36.89 [facility] Respiratory rate 2023-05-14 12:30:00 18 /min [facility] Oxygen saturation in Arterial blood by Pulse oximetry 2023-05-14 09:21:00 99 /min [facility] Body height 2023-05-13 19:48:00 154.9 cm [facility] Body weight 2023-05-13 19:48:00 63.504 kg [facility] BMI 2023-05-13 19:48:00 26.45 kg/m2 [facility] Systolic blood pressure 2023-05-14 01:59:00 116 mm[Hg] [facility] Diastolic blood pressure 2023-05-14 01:59:00 66 mm[Hg] [facility] Heart rate 2023-05-14 01:59:00 65 /min [facility] Respiratory rate 2023-05-14 01:59:00 8 /min [facility] Oxygen saturation in Arterial blood by Pulse oximetry 2023-05-14 01:59:00 100 /min [facility] Systolic blood pressure 2023-05-14 01:59:00 116 mm[Hg] [facility] Diastolic blood pressure 2023-05-14 01:59:00 66 mm[Hg] [facility] Heart rate 2023-05-14 01:59:00 65 /min [facility] Respiratory rate 2023-05-14 01:59:00 8 /min [facility] Oxygen saturation in Arterial blood by Pulse oximetry 2023-05-14 01:59:00 100 /min [facility] Body temperature 2023-05-13 23:43:00 37 [facility] Body temperature 2023-05-13 23:43:00 37 [facility] Body height 2023-05-13 19:48:00 154.9 cm [facility] Body weight 2023-05-13 19:48:00 63.504 kg [facility] BMI 2023-05-13 19:48:00 26.45 kg/m2 [facility] Body height 2023-05-13 19:48:00 154.9 cm [facility] Body weight 2023-05-13 19:48:00 63.504 kg [facility] BMI 2023-05-13 19:48:00 26.45 kg/m2 [facility] Systolic blood pressure 2023-05-11 00:10:00 110 mm[Hg] [facility] Diastolic blood pressure 2023-05-11 00:10:00 69 mm[Hg] [facility] Heart rate 2023-05-11 00:10:00 70 /min [facility] Body temperature 2023-05-11 00:10:00 37.17 [facility] Respiratory rate 2023-05-11 00:10:00 16 /min [facility] Oxygen saturation in Arterial blood by Pulse oximetry 2023-05-11 00:10:00 96 /min [facility] Body height 2023-05-10 21:04:00 154.9 cm [facility] Body weight 2023-05-10 21:04:00 63.504 kg [facility] BMI 2023-05-10 21:04:00 26.45 kg/m2 [facility] Systolic blood pressure 2023-05-10 20:31:00 107 mm[Hg] [facility] Diastolic blood pressure 2023-05-10 20:31:00 65 mm[Hg] [facility] Heart rate 2023-05-10 20:31:00 69 /min [facility] Body temperature 2023-05-10 20:31:00 36.78 [facility] Respiratory rate 2023-05-10 20:31:00 17 /min [facility] Body height 2023-05-10 20:31:00 154.9 cm [facility] Body weight 2023-05-10 20:31:00 63.594 kg [facility] BMI 2023-05-10 20:31:00 26.49 kg/m2 [facility] Systolic blood pressure 2023-03-15 17:53:00 104 mm[Hg] [facility] Diastolic blood pressure 2023-03-15 17:53:00 58 mm[Hg] [facility] Heart rate 2023-03-15 17:53:00 80 /min [facility] Body temperature 2023-03-15 17:53:00 36.72 [facility] Respiratory rate 2023-03-15 17:53:00 18 /min [facility] Body height 2023-03-15 17:53:00 154.9 cm [facility] Body weight 2023-03-15 17:53:00 59.421 kg [facility] BMI 2023-03-15 17:53:00 24.75 kg/m2 [facility] Oxygen saturation in Arterial blood by Pulse oximetry 2023-03-15 17:53:00 98 /min [facility] Systolic blood pressure 2023-03-04 23:23:00 112 mm[Hg] [facility] Diastolic blood pressure 2023-03-04 23:23:00 59 mm[Hg] [facility] Heart rate 2023-03-04 23:23:00 77 /min [facility] Body temperature 2023-03-04 23:23:00 36.94 [facility] Body height 2023-03-04 23:23:00 154.9 cm [facility] Body weight 2023-03-04 23:23:00 59.648 kg [facility] BMI 2023-03-04 23:23:00 24.85 kg/m2 [facility] Oxygen saturation in Arterial blood by Pulse oximetry 2023-03-04 23:23:00 95 /min [facility] Oxygen saturation in Arterial blood by Pulse oximetry 2023-03-01 16:55:00 98 /min [facility] Systolic blood pressure 2023-03-01 16:51:00 115 mm[Hg] [facility] Diastolic blood pressure 2023-03-01 16:51:00 69 mm[Hg] [facility] Heart rate 2023-03-01 16:51:00 55 /min [facility] Respiratory rate 2023-03-01 16:51:00 14 /min [facility] Body temperature 2023-03-01 15:40:00 36.11 [facility] Body height 2023-02-22 18:00:00 154.9 cm [facility] Body weight 2023-02-22 18:00:00 58.968 kg [facility] BMI 2023-02-22 18:00:00 24.56 kg/m2 [facility] Oxygen saturation in Arterial blood by Pulse oximetry 2023-03-01 16:55:00 98 /min [facility] Systolic blood pressure 2023-03-01 16:51:00 115 mm[Hg] [facility] Diastolic blood pressure 2023-03-01 16:51:00 69 mm[Hg] [facility] Heart rate 2023-03-01 16:51:00 55 [facility] 2023-[facility]-01 16:51:00 14 /min [facility] Body temperature 2023-03-01 15:40:00 36.11 [facility] Body height 2023-02-22 18:00:00 154.9 cm [facility] 2023-02-22 18:00:00 58.968 kg [facility] BMI 2023-02-22 18:00:00 24.56 kg/m2 [facility] Systolic blood pressure 2023-02-03 13:22:00 105 mm[Hg] [facility] Diastolic blood pressure 2023-02-03 13:22:00 65 mm[Hg] [facility] Heart rate 2023-02-03 13:22:00 76 /min [facility] 2023-02-03 13:22:00 154.9 cm [facility] Body weight 2023-02-03 13:22:00 60.328 kg [facility] BMI 2023-02-03 13:22:00 25.13 kg/m2 [facility] Oxygen saturation in Arterial blood by Pulse oximetry 2023-02-03 13:22:00 99 /min [facility] Systolic blood pressure 2023-01-15 00:33:00 118 mm[Hg] [facility] Diastolic blood pressure 2023-01-15 00:33:00 74 mm[Hg] [facility] Heart rate 2023-01-15 00:33:00 66 /min [facility] Body temperature 2023-01-15 00:33:00 37 [facility] Respiratory rate 2023-01-15 00:33:00 16 /min [facility] Body height 2023-01-15 00:33:00 154.9 cm [facility] 2023-01-15 00:33:00 60.283 [facility] 2023-01-15 00:33:00 25.11 kg/m2 [facility] Oxygen saturation in Arterial blood by Pulse oximetry 2023-01-15 00:33:00 98 /min [facility] Systolic blood pressure 2022-12-29 19:45:00 109 mm[Hg] [facility] Diastolic blood pressure 2022-12-29 19:45:00 70 mm[Hg] [facility] Heart rate 2022-12-29 19:45:00 68 /min [facility] Body temperature 2022-12-29 19:45:00 36.89 [facility] Respiratory rate 2022-12-29 19:45:00 18 /min [facility] Body height 2022-12-29 19:45:00 154.9 cm [facility] Body weight 2022-12-29 19:45:00 60.328 kg [facility] BMI 2022-12-29 19:45:00 25.13 kg/m2 [facility] Systolic blood pressure 2022-11-12 15:34:00 104 mm[Hg] [facility] Diastolic blood pressure 2022-11-12 15:34:00 67 mm[Hg] [facility] Heart rate 2022-11-12 15:34:00 62 /min [facility] Body temperature 2022-11-12 15:34:00 37.11 [facility] Body height 2022-11-12 15:34:00 154.9 cm [facility] Body weight 2022-11-12 15:34:00 63.05 kg [facility] BMI 2022-11-12 15:34:00 26.26 kg/m2 [facility] Systolic blood pressure 2022-09-17 17:01:00 107 mm[Hg] [facility] Diastolic blood pressure 2022-09-17 17:01:00 66 mm[Hg] [facility] Heart rate 2022-09-17 17:01:00 65 /min [facility] Respiratory rate 2022-09-17 17:01:00 18 /min [facility] Body height 2022-09-17 17:01:00 154.9 cm [facility] Body weight 2022-09-17 17:01:00 68.04 kg [facility] BMI 2022-09-17 17:01:00 28.34 kg/m2 [facility] Systolic blood pressure 2022-07-07 16:50:00 96 mm[Hg] [facility] Diastolic blood pressure 2022-07-07 16:50:00 63 mm[Hg] [facility] Heart rate 2022-07-07 16:50:00 64 /min [facility] Body temperature 2022-07-07 16:50:00 36.72 [facility] Respiratory rate 2022-07-07 16:50:00 18 /min [facility] Body height 2022-07-07 16:50:00 154.9 cm [facility] Body weight 2022-07-07 16:50:00 70.308 kg [facility] BMI 2022-07-07 16:50:00 29.29 kg/m2 [facility] Systolic blood pressure 2022-06-09 15:03:00 98 mm[Hg] [facility] Diastolic blood pressure 2022-06-09 15:03:00 65 mm[Hg] [facility] Heart rate 2022-06-09 15:03:00 79 /min [facility] Body temperature 2022-06-09 15:03:00 36.44 [facility] Respiratory rate 2022-06-09 15:03:00 18 /min [facility] Body height 2022-06-09 15:03:00 154.9 cm [facility] Body weight 2022-06-09 15:03:00 71.215 kg [facility] BMI 2022-06-09 15:03:00 29.66 kg/m2 [facility] Systolic blood pressure 2022-05-12 18:02:00 101 mm[Hg] [facility] Diastolic blood pressure 2022-05-12 18:02:00 67 mm[Hg] [facility] Heart rate 2022-05-12 18:02:00 53 /min [facility] Body temperature 2022-05-12 18:02:00 36.61 [facility] Respiratory rate 2022-05-12 18:02:00 16 /min [facility] Body height 2022-05-12 18:02:00 154.9 cm [facility] Body weight 2022-05-12 18:02:00 73.936 kg [facility] BMI 2022-05-12 18:02:00 30.80 kg/m2 [facility] Systolic blood pressure 2022-04-22 12:18:00 106 mm[Hg] [facility] Diastolic blood pressure 2022-04-22 12:18:00 55 mm[Hg] [facility] Heart rate 2022-04-22 12:18:00 53 /min [facility] Body temperature 2022-04-22 12:18:00 36.5 [facility] Respiratory rate 2022-04-22 12:18:00 16 /min [facility] Oxygen saturation in Arterial blood by Pulse oximetry 2022-04-22 09:25:00 99 /min [facility] Body height 2022-04-20 08:51:00 154.9 cm [facility] Body weight 2022-04-20 08:51:00 87.272 kg [facility] BMI 2022-04-20 08:51:00 36.35 kg/m2 [facility] Body weight 2022-04-14 15:06:00 86.183 kg [facility] BMI 2022-04-14 15:06:00 35.90 kg/m2 [facility] Systolic blood pressure 2022-04-14 15:06:00 106 mm[Hg] [facility] Diastolic blood pressure 2022-04-14 15:06:00 70 mm[Hg] [facility] Heart rate 2022-04-14 15:06:00 86 /min [facility] Body temperature 2022-04-14 15:06:00 36.78 [facility] Respiratory rate 2022-04-14 15:06:00 18 /min [facility] Body height 2022-04-14 15:06:00 154.9 cm [facility] Systolic blood pressure 2022-04-08 15:56:00 106 mm[Hg] [facility] Diastolic blood pressure 2022-04-08 15:56:00 68 mm[Hg] [facility] Heart rate 2022-04-08 15:56:00 65 /min [facility] Body temperature 2022-04-08 15:56:00 36.78 [facility] Respiratory rate 2022-04-08 15:56:00 18 /min [facility] Body height 2022-04-08 15:56:00 154.9 cm [facility] Body weight 2022-04-08 15:56:00 84.369 kg [facility] BMI 2022-04-08 15:56:00 35.14 kg/m2 [facility] Systolic blood pressure 2022-04-01 16:10:00 122 mm[Hg] [facility] Diastolic blood pressure 2022-04-01 16:10:00 71 mm[Hg] [facility] Heart rate 2022-04-01 16:10:00 78 /min [facility] Body temperature 2022-04-01 16:10:00 36.78 [facility] Respiratory rate 2022-04-01 16:10:00 18 /min [facility] [place] Body height 2022-04-01 16:10:00 154.9 cm [facility] Body weight 2022-04-01 16:10:00 84.278 kg [facility] BMI 2022-04-01 16:10:00 35.11 kg/m2 [facility] Procedures Procedure Date / Time Performed Performing Clinician Source POCT TEST 2023-05-23 19:07:00 Carolynn Esparza [facility] [place] CT ABDOMEN PELVIS W CONTRAST 2023-05-15 04:14:11 Alyson Michel [facility] [place] COMP. METABOLIC PANEL (26738) 2023-05-15 03:55:00 Alyson Michel [facility] [place] CBC WITH DIFF 2023-05-15 03:55:00 Alyson Michel [facility] NOTICE OF PRIVACY PRACTICES 2023-05-15 03:39:09 Doctor Unassigned, [place] [facility] [place] CONSENT/REFUSAL FOR DIAGNOSIS AND TREATMENT 2023-05-15 03:35:18 Doctor Unassigned, [place] [facility] [place] CBC WITH DIFF 2023-05-14 10:11:00 Estrellita Kalina [facility] [place] CBC WITH DIFF 2023-05-14 10:11:00 Estrellita [facility] CBC WITH DIFF 2023-05-14 10:11:00 Estrellita [facility] EMERGENCY SERVICES AGREEMENTS AND AUTHORIZATIONS 2023-05-14 05:01:00 Doctor Unassigned, [place] [facility] [place] SURGICAL PATHOLOGY EXAM 2023-05-14 00:46:00 Rufnio Hernandez Kalina [facility] [place] LAPAROSCOPIC SALPINGECTOMY 2023-05-13 23:47:00 C Camron [facility] INTRAUTERINE DEVICE REMOVAL 2023-05-13 23:47:00 Estrellita [facility] LAPAROSCOPIC SALPINGECTOMY 2023-05-13 23:47:00 Patience Lyon [facility] INTRAUTERINE DEVICE REMOVAL 2023-05-13 23:47:00 Estrellita Kalina [facility] [place] HB ABO GROUPING 2023-05-13 22:52:00 Alyson Michel [facility] [place] HB ABO GROUPING 2023-05-13 22:52:00 Alyson Michel [facility] HB ABO GROUPING 2023-05-13 22:52:00 Alyson Michel [facility] [place] COMP. METABOLIC PANEL ([id number]) 2023-05-13 20:27:00 Alyson Michel [facility] [place] TOTAL BETA HCG ASSAY 2023-05-13 20:27:00 Aidan Michel [facility] [place] CBC WITH DIFF 2023-05-13 20:27:00 Alyson Michel [facility] COMP. METABOLIC PANEL ([id number]) 2023-05-13 20:27:00 Alyson Michel [facility] [place] TOTAL BETA HCG ASSAY 2023-05-13 20:27:00 Aidan Michel [facility] [place] CBC WITH DIFF 2023-05-13 20:27:00 Alyson Michel [facility] COMP. METABOLIC PANEL ([id number]) 2023-05-13 20:27:00 Alyson Michel [facility] [place] TOTAL BETA HCG ASSAY 2023-05-13 20:27:00 Aidan Michel [facility] [place] CBC WITH DIFF 2023-05-13 20:27:00 Alyson Michel [facility] CONSENT/REFUSAL FOR DIAGNOSIS AND TREATMENT 2023-05-13 19:34:56 Doctor Unassigned, [place] [facility] [place] CONSENT/REFUSAL FOR DIAGNOSIS AND TREATMENT 2023-05-13 19:34:56 Doctor Unassigned, [place] [facility] [place] CONSENT/REFUSAL FOR DIAGNOSIS AND TREATMENT 2023-05-13 19:34:56 Doctor Unassigned, [place] [facility] FIRST TRIMESTER LESS THAN 14 WEEKS WITH TRANSVAGINAL 2023-05-13 18:58:29 Carolynn Esparza [facility] HOSPITAL ADMISSION 2023-05-13 05:01:00 Doctor Un assigned, [place] [facility] FIRST TRIMESTER LESS THAN 14 WEEKS WITH TRANSVAGINAL 2023-05-10 22:00:00 Kenny Finley [facility] US OB TRANSVAGINAL 2023-05-10 21:37:34 Carolynn Esparza [facility] COMP. METABOLIC PANEL ([id number]) 2023-05-10 21:24:00 Kenny Finley [facility] [place] TOTAL BETA HCG ASSAY 2023-05-10 21:24:00 Kulwinder Finley [facility] [place] CBC WITH DIFF 2023-05-10 21:24:00 Kenny Finley [facility] HB ABO GROUPING 2023-05-10 21:24:00 Kenny [facility]ley [facility] CONSENT/REFUSAL FOR DIAGNOSIS AND TREATMENT 2023-05-10 20:57:33 Doctor Unassigned, [place] [facility] [place] POCT TEST 2023-05-10 00:00:00 Carolynn Esparza [facility] [place] POCT URINALYSIS W/O SPECIFIC GRAVITY 2023-05-10 00:00:00 Carolynn Esparza [facility] [place] LAPAROSCOPIC CHOLECYSTECTOMY 2023-03-01 13:45:00 Mily Delgadillo [facility] [place] POCT TEST 2023-03-01 13:30:00 Eduard Delgadillo [facility] [place] POCT TEST 2023-03-01 13:30:00 Eduard Delgadillo [facility] [place] DAY SURGERY - ADC 2023-03-01 05:01:00 Doctor Enedina ssigned, [place] [facility] [place] DISCLOSURE AND CONSENT, MEDICAL AND SURGICAL PROCEDURES 2023-02-03 05:01:00 Doctor Unassigned, [place] [facility] [place] DISCLOSURE AND CONSENT, MEDICAL AND SURGICAL PROCEDURES 2023-02-03 05:01:00 Doctor Unassigned, [place] [facility] [place] US ABDOMEN LIMITED 2023-01-25 20:54:06 Marley Funez [facility] [place] HSV 1&2, VZV NAAT 2023-01-15 00:53:00 Brianne Britton [facility] [place] CONSENT/REFUSAL FOR DIAGNOSIS AND TREATMENT 2022-11-12 15:24:48 Doctor Unassigned, [place] [facility] [place] POCT TEST 2022-11-12 00:00:00 Marley Funez [facility] PATIENT FINANCIAL POLICY 2022-09-17 16:34:46 Doctor Unassigned, [place] [facility] [place] POCT TEST 2022-06-09 15:12:00 Carolynn Esparza [facility] [place] [facility] ULTRASOUND 2022-06-09 06:01:00 Doc tor Unassigned, [place] [facility] [place] CBC WITH DIFF 2022-04-21 09:07:00 Carolynn Esparza [facility] CENTRAL NEURAXIAL BLOCK 2022-04-20 14:22:48 Karen Yu [facility] [place] HB ABO GROUPING 2022-04-20 09:20:00 Carolynn Esparza [facility] RHO (D) IMMUNE GLOBULIN 2022-04-20 09:20:00 Carolynn Esparza [facility] [place] CONSENT/REFUSAL FOR DIAGNOSIS AND TREATMENT 2022-04-19 13:13:18 Doctor Unassigned, [place] [facility] [place] ASSIGNMENT OF BENEFITS 2022-04-19 13:12:53 Docto r Unassigned, [place] [facility] [place] POCT URINALYSIS W/O SPECIFIC GRAVITY 2022-04-14 00:00:00 Carolynn Esparza [facility] [place] POCT URINALYSIS W/O SPECIFIC GRAVITY 2022-04-08 00:00:00 Brianne Britton [facility] [place] >14 WEEKS US LIMITED 2022-04-01 17:17:35 Carolynn Esparza [facility] DSU PRE-OP 2022-04-01 05:01:00 Doctor Unass igned, [place] [facility] [place] POCT URINALYSIS W/O SPECIFIC GRAVITY 2022-04-01 00:00:00 Carolynn Esparza [facility] [place] Encounters Start Date/Time End Date/Time Encounter Type Admission Type Attending [facility] Care Facility Care Department Encounter ID Source 2022-01-29 21:39:50 Outpatient X [facility] TEENA [id number] [facility] 2021-05-18 22:00:59 Emergency [facility] [id number] [facility] 2021-05-16 09:26:29 Emergency [facility] [id number] [facility] 2023-09-23 10:00:00 2023-09-23 10:00:00 Outpatient R NEMO PRADO CHERYAL [facility] [id number] [facility] 2023-06-11 00:00:00 2023-06-11 00:00:00 Patient Secure Msg Carolynn Espar[facility] 1.2.840.114 350.1.13.10 4.2.7.2.686 [id number] [facility] 2023-05-23 13:30:00 2023-05-23 13:45:00 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, 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 Lab Carolynn Esparza [facility] 1.2.840.114 350.1.13.10 4.2.7.2.686 [id number] [facility] 2023-05-23 13:00:00 2023-05-23 13:16:39 Outpatient R CAROLYNN ESPARZA [facility] [id number] [facility] 2023-05-23 13:00:00 2023-05-23 13:16:39 Routine Visit Carolynn Esparza [facility] 1..840.114 350.1.13.10 4.2.7.2.686 [id number] [facility] 2023-05-14 22:43:00 2023-05-15 00:39:00 Emergency X ALYSON MICHEL [facility] ERT [id number] [facility] 2023-05-14 22:43:00 2023-05-15 00:39:00 Emergency Alyson Michel [facility] 1..840.114 350.1.13.10 4.2.7.2.686 [id number] [facility] 2023-05-13 14:52:00 2023-05-14 09:30:00 Outpatient X JENA Nina, KALINA JENA S, KALINA [facility] TEENA [id number] [facility] 2023-05-13 14:52:00 2023-05-14 09:30:00 Emergency Alyson Michel [facility] 1.2.840.114 350.1.13.10 4.2.7.2.686 [id number] [facility] 2023-05-13 19:00:00 2023-05-13 20:59:00 Surgery [place] Kalina nina [facility] 1.2.840.114 350.1.13.10 4.2.7.2.686 [id number] [facility] 2023-05-13 13:19:24 2023-05-13 14:51:00 Outpatient R CAROLYNN ESPARZA [facility] [id number] [facility] 2023-05-13 13:00:00 2023-05-13 14:51:00 Hospital Encounter Carolynn Esparza [facility] 1.2.840.114 350.1.13.10 4.2.7.2.686 [id number] [facility] 2023-05-12 13:15:00 2023-05-12 13:30:00 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, Adc Lab Carolynn Esparza [facility] 1.2.840.114 350.1.13.10 4.2.7.2.686 [id number] [facility] 2023-05-12 13:15:00 2023-05-12 13:26:14 Outpatient R CAROLYNN ESPARZA [facility] [id number] [facility] 2023-05-12 00:00:00 2023-05-12 00:00:00 Telephone Carolynn Esparza [facility] BUILDING 1.2.840.114 350.1.13.10 4.2.7.2.686 [id number] [facility] 2023-05-12 00:00:00 2023-05-12 00:00:00 Case Management Carolynn Esparza [facility] BUILDING 1.2.840.114 350.1.13.10 4.2.7.2.686 [id number] [facility] 2023-05-12 00:00:00 2023-05-12 00:00:00 Telephone Carolynn Esparza [facility] 1.840.114 350.1.13.10 4.2.7.2.686 [id number] [facility] 2023-05-12 00:00:00 2023-05-12 00:00:00 Patient Secure Msg Doctor Unassigned, [place] [facility] 1.840.114 350.1.13.10 4.2.7.2.686 [id number] [facility] 2023-05-10 16:05:00 2023-05-10 19:18:00 Emergency [facility] [id number] [facility] 2023-05-10 16:05:00 2023-05-10 19:18:00 Emergency Kenny Finley [facility] 1.840.114 350.1.13.10 4.2.7.2.686 [id number] [facility] 2023-05-10 15:30:00 2023-05-10 16:25:07 Outpatient R CAROLYNN ESPARZA [facility] [id number] [facility] 2023-05-10 15:30:00 2023-05-10 16:25:07 Office Visit Carolynn Esparza [facility] 1.840.114 350.1.13.10 4.2.7.2.686 [id number] [facility] 2023-03-28 08:30:00 2023-03-28 08:30:00 Outpatient R MILY DELGADILLO [facility] [id number] [facility] 2023-03-25 00:00:00 2023-03-25 00:00:00 Patient Secure Msg Doctor Unassigned, [place] [facility] 1..840.114 350.1.13.10 4.2.7.2.686 [id number] [facility] 2023-03-15 13:30:00 2023-03-15 13:30:00 Office Visit Razia Pitts [place] [facility] 1.2.840.114 350.1.13.10 4.2.7.2.686 [id number] [facility] 2023-03-15 13:30:00 2023-03-15 13:29:16 Outpatient R DAVE MILY [facility] [id number] [facility] 2023-03-13 00:00:00 2023-03-13 00:00:00 Patient Secure Msg Britton [facility] 1.2.840.114 350.1.13.10 4.2.7.2.686 [id number] [facility] 2023-03-04 18:00:00 2023-03-04 18:20:00 [facility] 1.2.840.114 350.1.13.10 4.2.7.2.686 [id number] [facility] 2023-03-04 18:00:00 2023-03-04 18:00:00 Outpatient R TOBI [facility] [id number] [facility] 2023-03-04 00:00:00 2023-03-04 00:00:00 Patient Secure Msg Britton [facility] BUILDING 1.2.840.114 350.1.13.10 4.2.7.2.686 [id number] [facility] 2023-03-01 09:20:00 2023-03-01 12:29:00 Surgery Mily Delgadillo [facility] 1.2.840.114 350.1.13.10 4.2.7.2.686 [id number] [facility] 2023-03-01 08:24:00 2023-03-01 11:55:00 Outpatient R MILY DELGADILLO [facility] KATERINA [id number] [facility] 2023-03-01 08:24:00 2023-03-01 11:55:00 Hospital Encounter Mily Delgadillo [facility] 1.2.840.114 350.1.13.10 4.2.7.2.686 [id number] [facility] 2023-02-21 00:00:00 2023-02-21 00:00:00 Patient Secure Msg [facility] 1.2.840.114 350.1.13.10 4.2.7.2.686 [id number] [facility] 2023-02-18 00:00:00 2023-02-18 00:00:00 Patient Secure M[facility] 1.2.840.114 350.1.13.10 4.2.7.2.686 [id number] [facility] 2023-02-17 00:00:00 2023-02-17 00:00:00 Patient Secure Msg T[facility] 1.2.840.114 350.1.13.10 4.2.7.2.686 [id number] [facility] 2023-02-03 08:30:00 2023-02-03 10:56:39 Outpatient R MILY DELGADILLO [facility] [id number] [facility] 2023-02-03 08:30:00 2023-02-03 10:56:39 Office Visit Mily Delgadillo [facility] 1.2.840.114 350.1.13.10 4.2.7.2.686 [id number] [facility] 2023-01-29 00:00:00 2023-01-29 00:00:00 Telephone Marley Funez [facility] 1.2840.114 350.1.13.10 4.2.7.2.686 [id number] [facility] 2023-01-26 00:00:00 2023-01-26 00:00:00 Patient Secure Msg Britton Brianne [facility] 1.2840.114 350.1.13.10 4.2.7.2.686 [id number] [facility] 2023-01-26 00:00:00 2023-01-26 00:00:00 Telephone Marley Funez [facility]?JACEK [facility] MEDICAL OFFICE BUILDING 1.2840.114 350.1.13.10 4.2.7.2.686 [id number] [facility] 2023-01-25 15:19:29 2023-01-25 23:59:00 Outpatient R SANDRA FUNEZLIE [facility] [id number] [facility] 2023-01-25 15:19:29 2023-01-25 23:59:00 Hospital Encounter Marley Funez [facility] 1.2840.114 350.1.13.10 4.2.7.2.686 [id number] [facility] 2023-01-15 00:00:00 2023-01-15 00:00:00 Patient Secure Msg Britton Brianne [facility] BUILDING 1.2840.114 350.1.13.10 4.2.7.2.686 [id number] [facility] 2023-01-14 19:20:00 2023-01-14 20:53:05 Outpatient R BRIANNE BRITTON [facility] [id number] [facility] 2023-01-14 19:20:00 2023-01-14 20:53:05 Urgent Care Brianne Britton Unknown, Attending [facility] 1.2.840.114 350.1.13.10 4.2.7.2.686 [id number] [facility] 2023-01-12 00:00:00 2023-01-12 00:00:00 Patient Secure Msg Brianne Britton [facility] 1.2.840.114 350.1.13.10 4.2.7.2.686 [id number] 134 [id number] [facility] 2023-01-03 00:00:00 2023-01-03 00:00:00 Refill Marley Funez [facility] MED[facility] OFFICE BUILDING 1.2.840.114 350.1.13.10 4.2.7.2.686 [id number] [facility] 2023-01-02 00:00:00 2023-01-02 00:00:00 Patient Secure Msg Marley Funez [facility] BUILDING 1.2.840.114 350.1.13.10 4.2.7.2.686 [id number] [facility] 2022-12-30 00:00:00 2022-12-30 00:00:00 Case Management Brianne Britton [facility] MED[facility] OFF[facility] BUILDING 1.2.840.114 350.1.13.10 4.2.7.2.686 [id number] [facility] 2022-12-29 15:15:00 2022-12-29 15:20:41 Outpatient R BRIANNE BRITTON [facility] [id number] [facility] 2022-12-29 15:15:00 2022-12-29 15:20:41 Office Visit Brianne Britton [facility] NAL BUILDING 1.2.840.114 350.1.13.10 4.2.7.2.686 [id number] [facility] 2022-12-10 00:00:00 2022-12-10 00:00:00 Outpatient R MARLEY FUNEZ [facility] [id number] [facility] 2022-11-24 00:00:00 2022-11-24 00:00:00 Telephone Marley Funez [facility] OFFICE BUILDING 1..840.114 350.1.13.10 4.2.7.2.686 [id number] [facility] 2022-11-12 10:30:00 2022-11-12 11:14:36 Outpatient R MARLEY FUNEZ [facility] [id number] [facility] 2022-11-12 10:30:00 2022-11-12 11:14:36 Office Visit Sandra [facility]evaristo [facility] OFF[facility] BUILD[facility] 1..840.114 350.1.13.10 4.2.7.2.686 [id number] [facility] 2022-11-12 00:00:00 2022-11-12 00:00:00 Orders Only Doctor Unassigned, [place] [facility] 1.840.114 350.1.13.10 4.2.7.2.686 [id number] [facility] 2022-11-04 09:30:00 2022-11-04 09:45:00 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, Adc Lab Nemo Prado [facility] 1.114 350.1.13.10 4.2.7.2.686 [id number] [facility] 2022-11-04 09:30:00 2022-11-04 09:30:00 Outpatient R NEMO PRADO CHERYAL [facility] [id number] [facility] 2022-11-02 10:30:00 2022-11-02 10:30:00 Outpatient R [facility] [id number] [facility] 2022-10-14 11:00:00 2022-10-14 11:00:00 Outpatient R [facility] [id number] [facility] 2022-09-20 09:15:00 2022-09-20 09:15:00 Outpatient R NEMO PRADO CHERYAL [facility] [id number] [facility] 2022-09-17 10:30:00 2022-09-17 11:21:57 Outpatient R NEMO PRADO CHERYAL [facility] [id number] [facility] 2022-09-17 10:30:00 2022-09-17 11:21:57 Office Visit Nemo Prado [facility] 1.114 350.1.13.10 4.2.7.2.686 [id number] [facility] 2022-09-17 00:00:00 2022-09-17 00:00:00 Orders Only Doctor Unassigned, [place] [facility] 1.114 350.1.13.10 4.2.7.2.686 [id number] [facility] 2022-09-10 00:00:00 2022-09-10 00:00:00 Pre Visit Outreach Nell Chen 1.114 350.1.13.10 4.2.7.2.686 [id number] [facility] 2022-07-15 10:30:00 2022-07-15 10:30:00 Outpatient R BRIANNE BRITTON [facility] [id number] [facility] 2022-07-07 10:45:00 2022-07-07 11:19:46 Office Visit Carolynn Esparza [facility] 1..840.114 350.1.13.10 4.2.7.2.686 [id number] [facility] 2022-07-07 10:45:00 2022-07-07 11:19:46 Outpatient R CAROLYNN ESPARZA [facility] [id number] [facility] 2022-06-09 09:00:00 2022-06-09 10:13:16 [facility] [id number] [facility] 2022-06-09 09:00:00 2022-06-09 10:13:16 Office Visit Carolynn Esparza [facility] 1..840.114 350.1.13.10 4.2.7.2.686 [id number] [facility] 2022-06-09 00:00:00 2022-06-09 00:00:00 Orders Only Doctor Unassigned, [place] [facility] 1..840.114 350.1.13.10 4.2.7.2.686 [id number] [facility] 2022-05-12 13:00:00 2022-05-12 13:20:00 Outpatient R CAROLYNN ESPARZA [facility] [id number] [facility] 2022-05-12 13:00:00 2022-05-12 13:20:00 Routine Visit Carolynn Esparza [facility] 1.2.840.114 350.1.13.10 4.2.7.2.686 [id number] [facility] 2022-04-20 03:41:00 2022-04-22 09:40:00 Hospital Encounter Carolynn Esparza [facility] 1.2.840.114 350.1.13.10 4.2.7.2.686 [id number] [facility] 2022-04-20 08:56:00 2022-04-20 18:22:00 Anesthesia Event AimeeLivan Jeffrey S [facility] 1.2.840.114 350.1.13.10 4.2.7.2.686 [id number] [facility] 2022-04-20 08:47:11 2022-04-20 08:47:11 Anesthesia Event Livan Yu [facility] 1.2.840.114 350.1.13.10 4.2.7.2.686 [id number] [facility] 2022-04-19 08:30:00 2022-04-19 08:45:00 Power Shear Operator Visit Pob, Adc Lab Main Carolynn Esparza [facility] 1.2.840.114 350.1.13.10 4.2.7.2.686 [id number] [facility] 2022-04-19 08:00:00 2022-04-19 08:15:00 Laboratory Only Only, Adc Test Carolynn Esparza [facility] 1.2.840.114 350.1.13.10 4.2.7.2.686 [id number] [facility] 2022-04-19 08:00:00 2022-04-19 08:00:00 Outpatient R [facility] [id number] [facility] 2022-04-19 08:00:00 2022-04-19 08:00:00 Outpatient [facility] [id number] [facility] 2022-04-14 10:00:00 2022-04-14 10:15:00 [facility] 1.2.840.114 350.1.13.10 4.2.7.2.686 [id number] [facility] 2022-04-14 10:00:00 2022-04-14 10:00:00 [facility] [id number] [facility] 2022-04-09 10:00:00 2022-04-09 10:15:00 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, Adc Lab Carolynn Esparza [facility] BUILDING 1.2.840.114 350.1.13.10 4.2.7.2.686 [id number] [facility] 2022-04-09 10:00:00 2022-04-09 10:00:00 Outpatient R CAROLYNN ESPARZA [facility] [id number] [facility] 2022-04-08 10:30:00 2022-04-08 11:20:01 [facility] [id number] [facility] 2022-04-08 10:30:00 2022-04-08 11:20:01 Routine Visit MikkiBrianne coffey [facility] 1.2.840.114 350.1.13.10 4.2.7.2.686 [id number] [facility] 2022-04-08 11:15:00 2022-04-08 11:15:00 Outpatient R ESTUARDOLAURAIRLANDA [facility] [id number] [facility] 2022-04-01 11:00:00 2022-04-01 11:54:28 Outpatient R [facility]AIAS [facility] [id number] [facility] 2022-04-01 11:00:00 2022-04-01 11:54:28 Routine Visit [facility] BUILDING 1.2840.114 350.1.13.10 4.2.7.2.686 [id number] [facility] 2022-04-01 11:00:00 2022-04-01 11:54:28 Outpatient R CAROLYNN ESPARZA [facility] [id number] [facility] 2022-04-01 00:00:00 2022-04-01 00:00:00 Orders Only Doctor Unassigned, [place] [facility] 1..114 350.1.13.10 4.2.7.2.686 [id number] [facility] 2022-03-25 12:00:00 2022-03-25 12:52:58 Outpatient R GIDEON SANTOS [facility] [id number] [facility] 2022-03-25 12:00:00 2022-03-25 12:52:58 Urgent Care Gideon Santos Rania [facility] BU[facility] 1..114 350.1.13.10 4.2.7.2.686 [id number] [facility] 2022-03-25 11:00:00 2022-03-25 11:32:10 Routine Visit Brianne Britton [facility] BUILDING 1.284.114 350.1.13.10 4.2.7.2.686 [id number] [facility] 2022-03-11 11:15:00 2022-03-11 12:07:16 Routine Visit [facility]ynn [facility] BUILDING 1.284.114 350.1.13.10 4.2.7.2.686 [id number] [facility] 2022-03-11 11:15:00 2022-03-11 12:07:16 Outpatient R CAROLYNN ESPARZA [facility] [id number] [facility] 2022-03-09 13:30:00 2022-03-09 14:15:00 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, [facility] Us Room Lesly Elliott [facility] 1.114 350.1.13.10 4.2.7.2.686 [id number] [facility] 2022-03-09 13:30:00 2022-03-09 13:30:00 Outpatient P LESLY ELLIOTT [facility] [id number] [facility] 2022-03-01 08:45:00 2022-03-01 08:45:00 Outpatient P [facility] [id number] [facility] 2022-02-24 00:00:00 2022-02-24 00:00:00 Telephone Carolynn Esparza [facility] BUILDING 1.114 350.1.13.10 4.2.7.2.686 [id number] [facility] 2022-02-23 16:15:00 2022-02-23 16:46:49 [facility] [id number] [facility] 2022-02-23 16:15:00 2022-02-23 16:46:49 Routine Visit Brianne Britton [facility] BUILDING 1..114 350.1.13.10 4.2.7.2.686 [id number] [facility] 2022-02-23 00:00:00 2022-02-23 00:00:00 Orders Only Doctor Unassigned, [place] [facility] 1..114 350.1.13.10 4.2.7.2.686 [id number] [facility] 2022-02-16 16:00:00 2022-02-16 16:00:00 Outpatient R BRIANNE BRITTON [facility] [id number] [facility] 2022-02-08 00:00:00 2022-02-08 00:00:00 Telephone Brianne Britton [facility] 1.2.840.114 350.1.13.10 4.2.7.2.686 [id number] [facility] 2022-02-05 08:45:00 2022-02-05 09:00:00 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, Adc Lab Brianne Britotn [facility] 1.2.840.114 350.1.13.10 4.2.7.2.686 [id number] [facility] 2022-02-05 08:45:00 2022-02-05 08:45:00 Outpatient [facility]ANDA [facility] [id number] [facility] 2022-02-02 14:00:00 2022-02-02 14:32:25 Outpatient R CAROLYNN ESPARZA [facility] [id number] [facility] 2022-02-02 14:00:00 2022-02-02 14:32:25 Routine Visit Carolynn Esparza [facility] 1.2.840.114 350.1.13.10 4.2.7.2.686 [id number] [facility] 2022-02-02 09:30:00 2022-02-02 09:30:00 Outpatient R CAROLYNN ESPARZA [facility] [id number] [facility] 2022-01-29 12:58:00 2022-01-29 21:22:00 Outpatient X CAROLYNN ESPARZA [facility] [id number] [facility] 2022-01-29 12:58:00 2022-01-29 21:22:00 Emergency Fish, Cassy Carolynn Esparza [facility] 1.2.840.114 350.1.13.10 4.2.7.2.686 [id number] [facility] 2022-01-21 00:00:00 2022-01-21 00:00:00 Telephone Tobi [facility] BUILDING 1.2.840.114 350.1.13.10 4.2.7.2.686 [id number] 134 [id number] [facility] 2022-01-07 00:00:00 2022-01-07 00:00:00 Case Management Tobi [facility] BUILDING 1.2.840.114 350.1.13.10 4.2.7.2.686 [id number] 134 [id number] [facility] 2022-01-05 11:00:00 2022-01-05 11:37:38 Routine Visit Brianne Britton [facility] BUILDING 1.2.840.114 350.1.13.10 4.2.7.2.686 [id number] [facility] 2022-01-05 11:00:00 2022-01-05 11:37:38 Outpatient R TOBI [facility] [id number] [facility] 2022-01-05 11:00:00 2022-01-05 11:00:00 Outpatient R MIKKISHANNON [facility] [id number] [facility] 2021-12-29 00:00:00 2021-12-29 00:00:00 Telephone [facility] BUILDING 1.2.840.114 350.1.13.10 4.2.7.2.686 [id number] [facility] 2021-12-23 10:30:00 2021-12-23 11:30:00 Power Shear Operator Visit Ultrasound, Ang-m Gio Woodall [facility] CHUCK TENDER [facility] 1.840.114 350.1.13.10 4.2.7.2.686 [id number] [facility] 2021-12-23 10:30:00 2021-12-23 10:30:00 Outpatient P ROSELINE GIO [facility] [id number] [facility] 2021-12-08 13:00:00 2021-12-08 13:32:10 Outpatient R CAROLYNN ESPARZA [facility] [id number] [facility] 2021-12-08 13:00:00 2021-12-08 13:32:10 Routine Visit Carolynn Esparza [facility] 1..840.114 350.1.13.10 4.2.7.2.686 [id number] [facility] 2021-12-08 13:00:00 2021-12-08 13:00:00 Outpatient R CAROLYNN ESPARZA [facility] [id number] [facility] 2021-11-10 13:00:00 2021-11-10 13:15:00 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, [facility] 1..840.114 350.1.13.10 4.2.7.2.686 [id number] [facility] 2021-11-10 13:00:00 2021-11-10 13:00:00 Outpatient R TOBI [facility] [id number] [facility] 2021-11-10 11:15:00 2021-11-10 11:34:32 Routine Visit Mikkishannon [facility] 1..840.114 350.1.13.10 4.2.7.2.686 [id number] [facility] 2021-11-10 11:15:00 2021-11-10 11:34:32 Outpatient BRIANNE NGUYỄN [facility] [id number] [facility] 2021-11-10 11:15:00 2021-11-10 11:15:00 Outpatient BRIANNE NGUYỄN [facility] [id number] [facility] 2021-11-04 00:00:00 2021-11-04 00:00:00 Orders Only Doctor Unassigned, [place] [facility] 1.2.840.114 350.1.13.10 4.2.7.2.686 [id number] [facility] 2021-10-22 00:00:00 2021-10-22 00:00:00 Telephone Carolynn Esparza [facility] 1.2.840.114 350.1.13.10 4.2.7.2.686 [id number] [facility] 2021-10-20 00:00:00 2021-10-20 00:00:00 Telephone Carolynn Esparza [facility] BUILDING 1.2.840.114 350.1.13.10 4.2.7.2.686 [id number] [facility] 2021-10-16 00:00:00 2021-10-16 00:00:00 Telephone Carolynn Esparza [facility] BUILDING 1.2.840.114 350.1.13.10 4.2.7.2.686 [id number] [facility] 2021-10-16 00:00:00 2021-10-16 00:00:00 Telephone Carolynn Esparza [facility] BUILDING 1.2840.114 350.1.13.10 4.2.7.2.686 [id number] 134 [id number] [facility] 2021-10-15 09:45:00 2021-10-15 10:00:00 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, Adc Lab Carolynn Esparza [facility] BUILDING 1.2.840.114 350.1.13.10 4.2.7.2.686 [id number] [facility] 2021-10-15 09:45:00 2021-10-15 09:45:00 Outpatient R [facility] [id number] [facility] 2021-10-15 09:45:00 2021-10-15 09:45:00 Outpatient R CAROLYNN ESPARZA [facility] [id number] [facility] 2021-10-15 00:00:00 2021-10-15 00:00:00 Case Management Brianne Britton [facility] 1.840.114 350.1.13.10 4.2.7.2.686 [id number] [facility] 2021-10-15 00:00:00 2021-10-15 00:00:00 Orders Only Doctor Unassigned, [place] [facility] 1.840.114 350.1.13.10 4.2.7.2.686 [id number] [facility] 2021-10-14 14:00:00 2021-10-14 15:15:08 Outpatient R CAROLYNN ESPARZA [facility] [id number] [facility] 2021-10-14 14:00:00 2021-10-14 15:15:08 Initial Visit Carolynn Esparza [facility] BUILDING 1..840.114 350.1.13.10 4.2.7.2.686 [id number] [facility] 2021-10-14 14:00:00 2021-10-14 15:15:08 Outpatient R CAROLYNN ESPARZA [facility] [id number] [facility] 2021-10-14 00:00:00 2021-10-14 00:00:00 Orders Only Doctor Unassigned, [place] [facility] 1.2.840.114 350.1.13.10 4.2.7.2.686 [id number] [facility] 2021-03-28 14:12:00 2021-03-28 16:13:00 Emergency Avis Banuelos Kinza [facility] 1.2.840.114 350.1.13.10 4.2.7.2.686 [id number] [facility] 2020-08-20 14:30:00 2020-08-20 14:30:00 Outpatient Phani BRITTON BRIANNE [facility] [id number] [facility] 2020-07-31 13:00:00 2020-07-31 13:00:00 Outpatient BRIANNE NGUYỄN [facility] [id number] [facility] 2020-06-21 11:46:00 2020-06-21 13:39:00 Emergency Charlene Whyte [facility] 1.2.840.114 350.1.13.10 4.2.7.2.686 [id number] [facility] 2020-06-21 00:00:00 2020-06-21 00:00:00 Orders Only Doctor Unassigned, [place] [facility] 1.2.840.114 350.1.13.10 4.2.7.2.686 [id number] [facility] 2020-05-28 13:30:00 2020-05-28 13:30:00 Outpatient BRIANNE NGUYỄN [facility] [id number] [facility] 2020-05-01 09:30:00 2020-05-01 09:30:00 Outpatient CAROLYNN WILSON [facility] [id number] [facility] 2020-04-30 08:30:00 2020-04-30 08:30:00 Outpatient R BRIANNE BRITTON [facility] [id number] [facility] 2020-04-28 15:15:00 2020-04-28 15:15:00 Outpatient R CAROLYNN ESPARZA [facility] [id number] [facility] 2019-03-06 13:43:15 2019-03-06 14:49:14 Office Visit Marley Funez [facility] Office [address] 1.2.840.114 350.1.13.10 4.2.7.2.686 [id number] [facility] 2019-03-05 00:00:00 2019-03-05 00:00:00 Case Management Brianne Britton [facility] 1.2.840.114 350.1.13.10 4.2.7.2.686 [id number] [facility] 2019-03-05 00:00:00 2019-03-05 00:00:00 Telephone Carolynn Esparza [facility] 1.2.840.114 350.1.13.10 4.2.7.2.686 [id number] [facility] 2019-03-01 08:58:15 2019-03-01 09:51:29 Office Visit Brianne Britton [facility] 1.2.840.114 350.1.13.10 4.2.7.2.686 [id number] 134 [id number] [facility] Results Test Description Test Time Test Comments Results Result Co mments Source [facility] [id number] 17:09:45* Test Item Value Reference Range Interpretation Comme nts Case Report (test code = 5774127429) Surgical Pathology ?Case: [id number] ? Authorizing Provider: ?Kalina Haro, ?Collected: ? 05/13/2023 1946 ?Ordering Location: ? ? [facility] ? ? ?Received: ?05/13/20232151 ? Surgical Center ?Pathologist: ? Michael, Tatiana Mullins, ? MD ? Specimens: ? A) - FALLOPIAN TUBE, LEFT ? B) - UTERUS, INTRAUTERINE DEVICE REMOVAL ? Final Diagnosis (test code = [id number]) m0hcrOVmGVJbj8lbCQKagWXt ZzEwMzNcZnRuYmpcdWMxIHtc cnRmMVxhbnNpXGRlZmxhbmcx KTVhTVF8qpJjILXmJCY1SCP5 UrIxHMKaJzApWDBrPRFcc9qx y0NifVBanVQqSVewqOGsagDx uv42dNU2vH28AQ3cACSiNaN0 KWAtrhT4Apd8DLHyBOWgjIEh V480f3zqf7izqmMelVB2wRko MFAvqgmrWeJ6XDmhZQPgwzyf OQp2MGelBRIjgMV9VBOvbKGq X9KxDFSiAT3fqky5KPW9YHla XDOpJoH7SSCdiXCrMFEhfUyf VMjkx483IMO6UwWcXRXkfkJc rQgbxL7rQnMnECatYHPgJX6v PfCSEK2OMFMJNKSMQcDjOS9T LRVKAK4VWOFiHBLEM82VElQF QOKPQJVMTGRIPHdQEK6LLDLA G62JYmwxXVBoUSQuNCQfAPNA TExPUElBTiBUVUJFIFdJVEgg D3fVYtwCDjgQNJQQWVbKRVYF CoSwNawPV8HtY4iNUWBzFHVJ LnJCV5QZEtKkD2gTTOODY8SV FYzYOSBKAMbWWG2DGDtyQQOk nFEgWLSaGBCCVFYGHkfnFU7N OsIPCQZXGI7USEKPOmnUUNND MW4YMgSUFhRfhJRbIGXdWIKc OGCDVm3BPzERKngDYVtBZKLn Z5COM6PaYHNQF0WIKDZAD97g XHBhclxwYXIgUmFzaGEgQWxm RWI5XFqwSK0VO8pRUGKcqUIf BUQsda87BCF3MyLyk1D2QZBm JhHlXUTaOF4yoIgvOLZlNN1c IUWtG5izsR4lgcn5NzWlEUTw JvS3LJKqtwU4Ybk5ENSyLDmr j7uvz6CdW9FboRZbmKf1u9xs HCPlLlO8rDLaREfoJ5bszhHc hTEuDDGdSBp4wSxeZpJrVQNp b9cogoIaWjEsNGVqFSFsUIVd fAxugmn8hW13YEHyoY4nyVLb SSokooXxYhS2JOqsIJVoHcR6 NIEqjJDxRZMlD6fmWRIxEJyd AVEyMKzlsNWiHLR2eVvgu4S2 bGVzaGVldHtcZjBcZnMyOCBO e5PsOJk4xJdnL0MzJCTkUtG8 bHQgUGFyYWdyYXBoIEZvbnQ7 cC57PEjdwaT7jKJhr3Ndy08g k826sW7gtQDkRZG3JJZvTGBh lTGmGBIfJAG1WPAsoVDiL9wd MBFlQW5hcytuGVqsUYzzFQJu pMM0QGNevCDaU1OmENUbAZeq HVMthqq2FdKeWs7enVJdyRpl GUswk3eye9lqnYUvCgp8SNXe CyGjZydfBImzs4Xse5dxVIKm an2aCNZ9jRIbgSgou5I6mVOf VSEnlOLkcwFcOEMrErI0IYql CX0zyw56KTYgIGG8rs7xwQEn zLxnlfNvqANxYYumV0WfAICu a563MCFnJ5ThEIGuz0W6dwHt McIgLCHwdOG9hvJ2AFWqDAb6 uDRzcbZ6xoCvbQGfN9obqD4e MUTrRT4fvmlfc5ecTBeyWZxe LDSiaHK1ykU5ZADfrRBiF0Zh xQ3bMPOrFQcdMRCnltu4DvBw Xq4rtMKxyLbbHUiaSnwnFTns XHBnbmNvbnRccGduZGVjXHBs YWluXHBsYWluXGYwXGZzMjRc mMwmvWqogN0jCbKsSwZrIRuo JZ7jNRNfZ3shjJUaHOHlKYUi O3awAsJhhC2raCzcUEojDbEy ZnMyMFxwYXIgSSBoYXZlIHBl uqObikUcjNjhdzR9sPD1CUKj IBxpEFSpVGKhwMWwcr6iyWoh QRUkYH7hEBHgsgSmTRgumKwa WDwkZLX5RRHmxCAtjNMqnADc ZSBieSByZXNpZGVudHMsIGZl uRwby2Yve0WxmXB0qD5jc9gh t4YkTSJkuVV4JX92mkH3pJ7e SWAgJF1nLIIuUG1ayRDtaVKi XUZpu77zzEwblvAkFRCqvcAn XHBsYWluXGYyXGZzMjhcbGFu ZzEwMzNcaGljaFxmMlxkYmNo UOJwISbfG8vmIyEpKxBeYXfr STN4dGhqsfItVFwmx8UpL6Mu MjAwMFxhbnNpXGRlZmxhbmcx HVOwATH4ziMcWJRcEDtbZJWz UOdtJa2voUVsuZmgXkKrVRLb n7mmetCTFAgrHkNlX956LQQj RLddt5vjs1DgWDHoaSZbg2Q5 BVFPctrzcYz7aTpeL74je5W4 CnnzF8znIWQmMSBjU4FbOH6o CBOmNjl2PWZ9QFE3KHJkTHNf I1BrGY7tXCWuuBLrJIm4c2do rSwmWXVaQKH8b2krNTwanrQ7 GD8ykc0kbXv8v3tprlWoNBNp BYInmIDTMRLnH1JikCoqUj4g gLc3gPrwYsbjMZX6Dgc5ZF9x bw42sep3fJpeXTMpjpvgVvA5 DCrlABXoiasdCNs2DSqtSUKc cKN7MJPzjZPjD7JoUMZpKJ7q orj2KGH1LXcbIOEaRsW1ZSAu eLEvILBavTnwODncf523UYC6 XaAhZK1rD4Bgp1J3aP1zwMAq UUUizJYbQlMjULEilb6muLUd XCgty4BlJ95puHU6ZXwnf9px HP7hHuH4wjCsDVuvv3rqxG5j EeB6SVamOZ3xwq59ORHhGMD1 pd4uvSRxbBhexeAdoUDsYVns Z4UyFYZwt237URMwY5QhCXNz g8E0nqPaQqWgGEHtvZT1vkT0 IRMxTYb7wHGtgvA5mgRpvZKa C9txfQ5dPKLoDF8rxwfqp1dd CLomTXguYPZvnCZ3umH4YUGu yALeX2FcbH5zOKZjKDhiYFGz vcb6MmDkDq0jsZCmcRyaSJwi YmtwYWdlXHBnbmNvbnRccGdu ZGVjXHBsYWluXHBsYWluXGYw KJHtWwOsfSTbQWsgl9OpbvDe wFbbKEQnTLy5weYeqgwmxJg8 gIEeqYpgJKCkdLqdaL3uFnRo JsEwAEbeOT8yFDIiX2kfmLOd QWUgURAsU6soKeFmpP1xlDzv MVxjZjJcZnMyMFxsdHJjaFxw YXIgSSBoYXZlIHBlcnNvbmFs xArqxfU2mYJ2AKAtVSnePVEx REKtoUKvur1gfUqfPQPxAQ8w IGFncmVlIHdpdGggYWxsIHN0 YXRlbWVudHMgbWFkZSBieSBy TBRrPUOzoURhYUBikXdlz9Uf z0DtnFH2rK7sr8wvt6NzQOWn iAW6GY33moU2vQ6qTBHuBF8z VOMaOT5rzDLklUVmSLLyz72x dGhpcyByZXBvcnQuXHBsYWlu XGYxXGZzMjBcbGFuZzEwMzNc aGljaFxmMVxkYmNoXGYxXGxv V5wfAdLdA4IvIPChKeRmlZZn OZXuyutpMEOud3VnCbVvz3ub OEkjo5docMc8YIivlAPheqzz IRoejvQ9ZAFuOVrrHMGgPQTs MTRcbGFuZzEwMzNcaGljaFxm NIogBqVaIHCnEEdeX7usMpQy R5JuYEYfKGAieNRpE6hpQPN6 qX8vu2dta3DitTGxFeUlv4wq bmFsIGNvbXBvbmVudCBwZXJm i7HxYIWiOGWvUEZGIl7XHPCz eWZdB4c1gIDKIG7stUVfVWZk PVZbG1KcNbJSypIvu3R1SUOm gZDwWIHDYUNqnKXvO3h9cJmv PZqpSij6MeFpwJtbfO7gFcQu EgQkFZbkZL8vVTWdL8kabMXp MDFaOMPiU3lvKkWitX9fzOvc MVxjZjJcZnMyMFxsdHJjaFxw YXJ9fQ== Clinical Information (test code = 9843218251) LEFT LOWER PELVIC PAINSUSPICION FOR ECTOPICDESIRES IUD REMOVAL Gross Description (test code = 3920876294) d3cyvAAhOYHuxOMRSYE7EAHh QS3ttJabiAs9yRmuULBuneG3 qRKdLWvog2ndRTI1d4srdhES IkngLIBgFP0bORaaFFToRI0e ZmUwXGRlZmYxXHBhcGVydzEy PuWqRXKqmEIztHU5GOLyFA4r xsjyXSzwWCxzXKNqqrX5SDFm tMQvV6RqEWAvKG1gtyhkNRU8 USKSKydrHd3iyYDpoCmbQrAp ZmNoYXJzZXQwXGZuaWwgQXJp RSb5vP5EAjqoJSZ4QQNVCdee OmvqyZyhl0EkqPMlNFXoRQyy aWQgNTEwMDAgXFxkYiBPVlIg YrY5WFBiEqW2GjG4ANb3GFDJ KDWuNor6JiH2RZL5JMk5CBRr DJ7jFHgucXXwSMqfLigcGPvl D533QQwrVMGjT2VgA9NwXFek ZyBcXGlkIDUxMDAyIFxcZGIg I8ENDYMaPEt5SSefNoIwCUd6 WYxcH8NLQFVyYEB0DYYoZnp3 QuH9DRj6RVJZDs3rNMgoGSG0 SAJ1GLG3QFr7HTFdTKYkOfLp CRQmGPKrICescPKwXZ4rpXzg MVNdYX9WYFJwFZdfZTTvNcCn N1DGV7yJQY0uKFjgvSGhkFwh ddMeOCRhjmTKUnlxBIApTA8G IMBaIKemQNm6sbWuAPAwTkZb GEFsB63ol1VFc7MaRX7HLSi6 haUhrhkcmW8nCBBzcbNxr7Ox MFxlcGljWHNhMzAgDQpTcGVj nC3nibCEWBhiJTAcL2WmqhLz IKpeQCAdnw9uyWthHSqfNzVh AONao3t9eXE1nITzrTC0iMWt gVroCV9ynKOpMAMPRG96iSJo elgjQbOexAollTowxoM9cRAg EQLkPHR6KtJsmrDsG82ek2zb uLLkl8OfOTFmhA7uqXWtbZAn LXBpbmsgZGlsYXRlZCBzZWdt HF63RU5oVARxeYEacCM2MEJd DdLbxW7daZHgVMX0LcNcJAHu CWZtvBJbjuVySO8krGqpApkd RL1mNQVtGMpyLJSuUW3tgOIv SNI9oLVtASCxm0Hsx2FhhCVm YTGlP8VaVQs8UUneUyPoGRHq KMRsYYFzjP2nQNGgqT88CbPz Q3BesMKcsMwmq7CamXoorgkw JfBhHYYaGOvgHECwfBS5YXXr dLSdBJ4ez3c6jKYxHKOwCOFa XNDtyP85oYEbBQIiy10gGSUc y5FmLDQOimVnVUFpgNZforPl zZWcgTNxa6ZdV1varqjdhesa ZWConZttZNKyWPWfcc8rl7c0 RUeqWF46bJJhQQEyKK7zRECx ETCrtKPbyR7fdbPdqxCxphOc pbFywINivXQqlDQ2DXYpkD1s XJJmKNvfNI4GZWWotHTXKTC1 NL2nNClzZKYoV9BcH7DizwU3 XOKngrWWTdagGgyxvBgon2Sn dCBcXHNnIFxcaWQgNTEwMDIg AMijFqTIMrDnGeI7OKXmHxV1 EcN3QVe0MQDVSnBeJgUbVuCy BKV0SQKlHBi7VZc8UFnFLqGm KYY5BvF9CDR9YFB0CtD5JHtx pPSfKEmja3QsDgCpSFHlCDfs gkF9ZJDnmlOpt2QmWYOmBHEf P2uiRwSpYUBXZebbyjUqJQFF RUNJTUVOIEJcZnMyMlxwYXIg DQpccGFyZCANClxwbGFpblxs dHJjaFxmczIyXGVwaWNOZXN0 PN2bQTKWLxicoTNaCWBbyNqq OCtffH6yMQWnSsJhHVFaG5eh AcOdFS9DN3MvN5qmWC5jKWHt cyByZWNlaXZlZCBmcmVzaCBs LPOtlVmxNWH0pWHlKUKsZKCy AOVhUH23XBvKGPVejjNqYJxr VUggbnVtYmVyIGBgIGludHJh pUGyqfjqRICeBDMsM1QnwdUd e5VntThzXtFjB8W0DLMlSYFx v07vmHY5gmIqInTrBACmvthv VNR2wAv9UOYewTOcdGprTRcr r9QycTugcX37FXI6UMsiiFSi gACxrcbjLDEqGRZdA8EoVTTg ydzqACWpjvY4oCBve9hrxBRr s6UttGqaWIcygKEdckAQPBu1 hWLqRxTlDCFffBCgXC3aHTO8 pmVxKXNwPaCdmJLgUE1waZtm WX7ySSCxLPUdbXLlvpJvxTDl ZXRlciBhbmQgdGhlIHRvcCBj fa2uhvBxDNJqvKTib2XzLRZj Uo53NBopWD1nSNwgAJ0uXRXj SB2zLHiingAffDHeVHGhb3Wt aTTcn9LazB4vXEb9WgJuC50s mA8ieXMyK9JcQCUjZAYzEBIm XMZxZL0iZL0nQXBsYEziTWMd LN6zoEMkPEFpoABfV2quDCR3 qfI8lGBhEl54nL0iZH2uVCSi NAXmAMBwTSA0TB7oQAbka5Ir MT3cGDucIKadgYckpH0aciEr hKJoZTDlCABfs9QiJrWBzPTb q4ZxX7znCK3abYSgCp1rEAml m2CuSOZ3DU0axlO2kH0rLB1j bHkuXHBhciANClxzYjBcZXBp C5nzGwMdKVzghSSuWW2PYzVn wOPeEWXRjThxhlK1NMIPUSFz DYWVBXqezUFlRE8XZHAwJjVt STKpH7ozLXBsFJ7UFZXinQSB CTE7CN1vYEyfZHWjU0UoN1Po svG2l9sbmOoux0AmuPAhBC6a jYUoBS8GMPOgfnKrLLr0 Disclaimer (test code = [id number]) z0eydDEbADUqi8vdJKMuoDTa ZzEwMzNcZnRuYmpcdWMxIHtc zjDxTZcgj8UxK8MwGsGcHFud bnNpXGRlZmxhbmcxMDMzXGZ0 xnBhMHJdIEdfCSVbAEunZr0h lWHcgEnfEkWmAPQie0lyrzZP AGafUbXrW814COXcZGjak6pd p6KsOBUxrHFmk0B1RSWUusfq sBr5vUmyL80it0L1XwkyY5ng YUVdROMaC5HwZX8bDAKyKnn5 RGN8FJD4FQVxYQJbV7BxPF0b JJTikACmAVf4x5ntaQbrPCZx RBM1y3roOIvllgMuLN8fpo0t eOr1j3spmsTqJQTkEHKdpUUI TGQgC3YzpEahSq6ktJp6lXbs HsdeNYV8Fkk4PZ9xpj92gli0 kElkUMQuqiceAsG0ZUzjKGRu xljqHZl2AEepXBZehQW5KORo sWHkY0SaEKBwNW3ueok5DON8 AZrkWQCjVaY0VULozFEcJXVn oJahOFtgi238HQI4LqZpCF0y F1Iis7B2yY8abBKmDLLidJXs OwOtDVLslb0woLNmEEfty1Bb NRX6juF6fJBpdJMoTPSjAW20 Vywxy5ZlCnjax9YeP78euYU5 UPbop5jfYM7uVbO8ixKjLKme b3koaU1jYsV9VEmdMH2nOE8u VWJjcN2uyaabMGHdVvBwcmsg IEPklAeuwyRzEp3guHeyHRR8 HBhpB8guzN8iTkE7TQeuY0dt aQ2uNIq9MDhdtZY9DWHqbB9q YB2fywipb3kbTRicVKdbURGa czT6bqA2BPIzwYMvI3KmoP1a RYAwWS6gexvng5nkUZF2BAkb LUOmQDP9MvFdWDAeg3Rerhu1 VvPzz7QojEDhBAprY73uu351 FKPmmbXhY0ihgKCohkynxBUh wifiYRgkioD2FZNsowGxi2Rh ZAHzBLO1DKpuOKumgOQoEVDj pVnes3kbJ4YpyXTnKEHeRTui XGYxXGZzMjBcbGFuZzEwMzNc aGljaFxmMVxkYmNoXGYxXGxv R1zfQqGvK8VpYPGhLvZxbAFr J6pkRJxgnbFcCFHermCiqOS1 NYcwM1g8GCMyrvLsuNm8uzFl HfGkFTQpEWX1XZvdxPIwNHYz k6ZqhtwkaPFgQt7ivXPvZHZq iT5oSSIvGEZrYHyjST9lpDr8 TPMLbSOzbMOgXdDEPZJgVL59 cmGoHQXClrfzm5D9ZYacZRYh p7BvrEEmC9wiv5IxEBIlk52f RG5th8L4x1qkSVK9FB1iu4Na IKMixDMtuNYwMYQas4Qzyaoh q3DhHSFxfsTza9AlVJQoftSc bFXlBCQvmsHvwh7dzgUvQAFh WBQsU3YbiqupiRuqaxHnWDVe is0kqfUkPQQ3BXQSJRRlGCMw k0PwfB1uvXOKEYH0dGIvsb0p lwLRxUQoDIDymp45OWKjOZ5g V3iyDGYjWFGbvuOtxAHwr9Ub CHDkcZI7nAAvMC5YUiDJd94d IGFuZCBEcnVnIEFkbWluaXN0 tbV1aH6aXKzSEAYuPxm+IFRo IOFMHEArSF2deeHnv4MwipNr gNlpHPBgbNEkm3HwqGCij1Oq zWpoh5HrlXRrrYIxSL0tGOYn clxwYXIgVVRNQiBMYWJvcmF0 p0FlTXNqBTAvPCI2jIgyltl0 BFUsxH3kFFUuF9fjsbgoHHmq VGAhu3SwwL4oaSBHmWSsd4Ku fUFxjFTHmXGtEN0chyEkYMpU XKzXDSW5mjXaBGNzd9RpZJdj Q5fdA30kmQwjbIv3aAC5PNZ5 uE2jDlm+IFxwYXJccGFyIEFw xJFxcVTdYIEwgXfpfnYyG2Hd bxVehE9fwICmblLmIP5uXA2w Q5E1fBGmGWCtjnChd8rkCYho dmUgYmVlbiByZXZpZXdlZCBm h2QjIElhKBD5IWsdsaZblqTr dWRpbmcgSCZFLCBTcGVjaWFs CGD7EZqsgsBsajDaYS6klU9g bEhugZ1qcKGzwCD8dqqdZHKd MHGvhBctSQVmDU9pwRnxaB3z BwAiHqCjOJiaSL7jXJHxJ0jk lMYyONWvACCjE4tcJyMocT5e aFxmMVxjZjJcZnMyMFxwYXJc cGFyXHBsYWluXGYxXGZzMjBc bGFuZzEwMzNcaGljaFxmMVxk KaMiMMWmLWogZ7nxBzRvJ5No QHYjIpJzrPByF1zfCGylJTV7 OFSxFD0omDByFC10bWPbg4vz DEvojTtcly8gY00ubBKpCXnb rJyhGVZbv20iu7DqCPHsecFw qu7aICFanaD2tF2iWGSwjSvh METcpDJuPCZsu7IbJAhucBMl emVkIGdsYXNzIHNsaWRlcyB0 byBhcnJpdmUgYXQgdGhlIGFi z9ZhLTGuFZkdf3Sdhl7unNKx HBBuyqQHbRukqHEhbN2jY9Sc SDYbRMMkcy9kBVKpnR0uKFsj v1FnwblaVBFtEFImDQUvugKz pv9xVCZqbWDJBM7RNHcfcOCl p5QzsiMeC6fPNDJ3CBBhUpUj LbndJWPqcHHdyRVqDKFjoe81 SJTymZ3moKlnZWOpoH8kmZ6x zUhpeS5hSwFqZrCpJLkdUB4v VBOsH9eahOJwQMBjQHMaI6ul MfCvnM7hkJutRTqpCpIpQpDt NRdgCSH1oU== Embedded Images (test code = 2415017269) [facility]. METABOLIC PANEL ([id number])2023-05-15 04:27:58* Test Item Value Reference Range Interpretation Comme nts NA (test code = 0019744381) 140 mmol/L 135-145 K (test code = 9928055040) 3.3 mmol/L 3.5-5.0 L CL (test code = 3995302631) 105 mmol/L 98-108 CO2 TOTAL (test code = 4003021216) 21 mmol/L 23-31 L AGAP (test code = 9524167765) 14 2-16 BUN (test code = 6445348339) 10 mg/dL 7-23 GLUCOSE (test code = 8602186900) 95 mg/dL 70-110 CREATININE (test code = 7355278050) 0.58 mg/dL 0.50-1.04 TOTAL BILI (test code = 9712437689) 0.4 mg/dL 0.1-1.1 CALCIUM (test code = 0928526848) 9.5 mg/dL 8.6-10.6 T PROTEIN (test code = 1759320512) 8.0 g/dL 6.3-8.2 ALBUMIN (test code = 5390986163) 4.9 g/dL 3.5-5.0 ALK PHOS (test code = 4862567930) 48 U/L 34-122 ALTv (test code = 1742-6) 21 U/L 5-35 AST(SGOT) (test code = 8041108311) 27 U/L 13-40 eGFR (test code = 8543475004) 128.8 mL/min/1.73m2 ENE (test code = ENE) Association of Glomerular Filtration Rate (GFR) and Staging of Kidney Disease* + --+ --+ ------+| GFR (mL/min/1.73 m2) ?| With Kidney Damage ?| ?Without Kidney Damage+ --------+ --------+ +| ?>90 ?| ?Stage one ?| ? Normal ?+ ---+ ---+ -------+| ?60-89 ?| ?Stage two ?| ? Decreased GFR ? + --+ --+ ------+| ?30-59 ?| ?Stage three ?| ? Stage three ? + --+ --+ ------+| ?15-29 ?| ?Stage four ? | ? Stage four ?+ ---+ ---+ -------+| ?<15 (or dialysis) ? ?| ?Stage five ? | ? Stage five ?+ ---+ ---+ -------+ *Each stage assumes the associated GFR level has been in effect for at least three months. ?Stages 1 to 5, with or without kidney disease, indicate chronic kidney disease. Notes: Determination of stages one and two (with eGFR >59mL/min/1.73 m2) requires estimation of kidney damage for at least three months as defined by structural or functional abnormalities of the kidney, manifested by either:Pathological abnormalities or Markers of kidney damage (including abnormalities in the composition of the blood or urine or abnormalities in imaging tests). Lab Interpretation (test code = 83704-9) Abnormal [facility] WITH [id number] 04:17:55* Test Item Value Reference Range Interpretation Comme nts WBC (test code = 6690-2) 8.99 See_Comment [[employer]] The system which generated this result transmitted reference range: 4.30 - 11.10 10*3/?L. The reference range was not used to interpret this result as normal/abnormal. RBC (test code = 789-8) 4.48 See_Comment [[employer]] The system which generated this result transmitted reference range: 3.93 - 5.25 10*6/?L. The reference range was not used to interpret this result as normal/abnormal. HGB (test code = 718-7) 13.9 g/dL 11.6-15.0 HCT (test code = 4544-3) 41.5 % 35.7-45.2 MCV (test code = 787-2) 92.6 fL 80.6-95.5 MCH (test code = 785-6) 31.0 pg 25.9-32.8 MCHC (test code = 786-4) 33.5 g/dL 31.6-35.1 RDW-SD (test code = 92584-5) 43.0 fL 39.0-49.9 RDW-CV (test code = 788-0) 12.6 % 12.0-15.5 PLT (test code = 777-3) 375 See_Comment H [Automated messa ge] The system which generated this result transmitted reference range: 166 - 358 10*3/?L. The reference range was not used to interpret this result as normal/abnormal. MPV (test code = 35150-7) 10.3 fL 9.5-12.9 NRBC/100 WBC (test code = 8706477983) 0.0 See_Comment [Automated [employer]] The system which generated this result transmitted reference range: 0.0 - 10.0 /100 WBCs. The reference range was not used to interpret this result as normal/abnormal. NRBC x10^3 (test code = 3410029132) See_Comment [Automated messa ge] The system which generated this result transmitted reference range: 10*3/?L. The reference range was not used to interpret this result as normal/abnormal. GRAN MAT (NEUT) % (test code = 770-8) 68.1 % IMM GRAN % (test code = 3472254824) 0.20 % LYMPH % (test code = 736-9) 24.7 % MONO % (test code = 5905-5) 6.6 % EOS % (test code = 713-8) 0.3 % BASO % (test code = 706-2) 0.1 % GRAN MAT x10^3(ANC) (test code = 9861269679) 6.12 10*3/uL 1.88-7.09 IMM GRAN x10^3 (test code = 1609681583) 0.00-0.06 LYMPH x10^3 (test code = 731-0) 2.22 10*3/uL 1.32-3.29 MONO x10^3 (test code = 742-7) 0.59 10*3/uL 0.33-0.92 EOS x10^3 (test code = 711-2) 0.03 10*3/uL 0.03-0.39 BASO x10^3 (test code = 704-7) 0.01-0.07 Lab Interpretation (test code = 08701-8) Abnormal [facility] with Differential - On Postoperative Day # [id number] 10:46:57* Test Item Value Reference Range Interpretation Comme nts WBC (test code = 6690-2) 6.55 See_Comment [Automated messa ge] The system which generated this result transmitted reference range: 4.30 - 11.10 10*3/?L. The reference range was not used to interpret this result as normal/abnormal. RBC (test code = 789-8) 4.14 See_Comment [Automated messa ge] The system which generated this result transmitted reference range: 3.93 - 5.25 10*6/?L. The reference range was not used to interpret this result as normal/abnormal. HGB (test code = 718-7) 12.6 g/dL 11.6-15.0 HCT (test code = 4544-3) 37.6 % 35.7-45.2 MCV (test code = 787-2) 90.8 fL 80.6-95.5 MCH (test code = 785-6) 30.4 pg 25.9-32.8 MCHC (test code = 786-4) 33.5 g/dL 31.6-35.1 RDW-SD (test code = 15902-1) 40.9 fL 39.0-49.9 RDW-CV (test code = 788-0) 12.5 % 12.0-15.5 PLT (test code = 777-3) 330 See_Comment [Automated messa ge] The system which generated this result transmitted reference range: 166 - 358 10*3/?L. The reference range was not used to interpret this result as normal/abnormal. MPV (test code = 87839-7) 10.2 fL 9.5-12.9 NRBC/100 WBC (test code = 2100125592) 0.0 See_Comment [Automated Attender [employer]] The system which generated this result transmitted reference range: 0.0 - 10.0 /100 WBCs. The reference range was not used to interpret this result as normal/abnormal. NRBC x10^3 (test code = 8205617991) See_Comment [Automated messa ge] The system which generated this result transmitted reference range: 10*3/?L. The reference range was not used to interpret this result as normal/abnormal. GRAN MAT (NEUT) % (test code = 770-8) 88.5 % IMM GRAN % (test code = 6960356498) 0.30 % LYMPH % (test code = 736-9) 9.0 % MONO % (test code = 5905-5) 2.0 % EOS % (test code = 713-8) 0.0 % BASO % (test code = 706-2) 0.2 % GRAN MAT x10^3(ANC) (test code = 3947983900) 5.80 10*3/uL 1.88-7.09 IMM GRAN x10^3 (test code = 1585200492) 0.00-0.06 LYMPH x10^3 (test code = 731-0) 0.59 10*3/uL 1.32-3.29 L MONO x10^3 (test code = 742-7) 0.13 10*3/uL 0.33-0.92 L EOS x10^3 (test code = 711-2) 0.03-0.39 L BASO x10^3 (test code = 704-7) 0.01-0.07 Lab Interpretation (test code = 49236-5) Abnormal [facility] with Differential - On Postoperative Day # [id number] 10:46:57* Test Item Value Reference Range Interpretation Comme nts WBC (test code = 6690-2) 6.55 See_Comment [Automated messa ge] The system which generated this result transmitted reference range: 4.30 - 11.10 10*3/?L. The reference range was not used to interpret this result as normal/abnormal. RBC (test code = 789-8) 4.14 See_Comment [Automated messa ge] The system which generated this result transmitted reference range: 3.93 - 5.25 10*6/?L. The reference range was not used to interpret this result as normal/abnormal. HGB (test code = 718-7) 12.6 g/dL 11.6-15.0 HCT (test code = 4544-3) 37.6 % 35.7-45.2 MCV (test code = 787-2) 90.8 fL 80.6-95.5 MCH (test code = 785-6) 30.4 pg 25.9-32.8 MCHC (test code = 786-4) 33.5 g/dL 31.6-35.1 RDW-SD (test code = 15690-6) 40.9 fL 39.0-49.9 RDW-CV (test code = 788-0) 12.5 % 12.0-15.5 PLT (test code = 777-3) 330 See_Comment [Automated messa ge] The system which generated this result transmitted reference range: 166 - 358 10*3/?L. The reference range was not used to interpret this result as normal/abnormal. MPV (test code = 27294-0) 10.2 fL 9.5-12.9 NRBC/100 WBC (test code = 8187573124) 0.0 See_Comment [Automated me ssage] The system which generated this result transmitted reference range: 0.0 - 10.0 /100 WBCs. The reference range was not used to interpret this result as normal/abnormal. NRBC x10^3 (test code = 7808466307) See_Comment [Automated messa ge] The system which generated this result transmitted reference range: 10*3/?L. The reference range was not used to interpret this result as normal/abnormal. GRAN MAT (NEUT) % (test code = 770-8) 88.5 % IMM GRAN % (test code = 9704319089) 0.30 % LYMPH % (test code = 736-9) 9.0 % MONO % (test code = 5905-5) 2.0 % EOS % (test code = 713-8) 0.0 % BASO % (test code = 706-2) 0.2 % GRAN MAT x10^3(ANC) (test code = 1152110406) 5.80 10*3/uL 1.88-7.09 IMM GRAN x10^3 (test code = 4174003750) 0.00-0.06 LYMPH x10^3 (test code = 731-0) 0.59 10*3/uL 1.32-3.29 L MONO x10^3 (test code = 742-7) 0.13 10*3/uL 0.33-0.92 L EOS x10^3 (test code = 711-2) 0.03-0.39 L BASO x10^3 (test code = 704-7) 0.01-0.07 Lab Interpretation (test code = 49284-1) Abnormal [facility] with Differential - On Postoperative Day # [id number] 10:46:57* Test Item Value Reference Range Interpretation Comme nts WBC (test code = 6690-2) 6.55 See_Comment [Automated messa ge] The system which generated this result transmitted reference range: 4.30 - 11.10 10*3/?L. The reference range was not used to interpret this result as normal/abnormal. RBC (test code = 789-8) 4.14 See_Comment [Automated messa ge] The system which generated this result transmitted reference range: 3.93 - 5.25 10*6/?L. The reference range was not used to interpret this result as normal/abnormal. HGB (test code = 718-7) 12.6 g/dL 11.6-15.0 HCT (test code = 4544-3) 37.6 % 35.7-45.2 MCV (test code = 787-2) 90.8 fL 80.6-95.5 MCH (test code = 785-6) 30.4 pg 25.9-32.8 MCHC (test code = 786-4) 33.5 g/dL 31.6-35.1 RDW-SD (test code = 50105-4) 40.9 fL 39.0-49.9 RDW-CV (test code = 788-0) 12.5 % 12.0-15.5 PLT (test code = 777-3) 330 See_Comment [Automated messa ge] The system which generated this result transmitted reference range: 166 - 358 10*3/?L. The reference range was not used to interpret this result as normal/abnormal. MPV (test code = 34222-1) 10.2 fL 9.5-12.9 NRBC/100 WBC (test code = 6567977452) 0.0 See_Comment [Automated me ssage] The system which generated this result transmitted reference range: 0.0 - 10.0 /100 WBCs. The reference range was not used to interpret this result as normal/abnormal. NRBC x10^3 (test code = 2482936697) See_Comment [Automated messa ge] The system which generated this result transmitted reference range: 10*3/?L. The reference range was not used to interpret this result as normal/abnormal. GRAN MAT (NEUT) % (test code = 770-8) 88.5 % IMM GRAN % (test code = 0570933817) 0.30 % LYMPH % (test code = 736-9) 9.0 % MONO % (test code = 5905-5) 2.0 % EOS % (test code = 713-8) 0.0 % BASO % (test code = 706-2) 0.2 % GRAN MAT x10^3(ANC) (test code = 6927078411) 5.80 10*3/uL 1.88-7.09 IMM GRAN x10^3 (test code = 5627163998) 0.00-0.06 LYMPH x10^3 (test code = 731-0) 0.59 10*3/uL 1.32-3.29 L MONO x10^3 (test code = 742-7) 0.13 10*3/uL 0.33-0.92 L EOS x10^3 (test code = 711-2) 0.03-0.39 L BASO x10^3 (test code = 704-7) 0.01-0.07 Lab Interpretation (test code = 92409-7) [id number]* Test Item Value Reference Range Interpretation Comme nts POCT PREG (test code = 1605) Positive On board controls acceptable with C Line (test code = 3574) Yes POCT PREG LOT # (test code = 3575) POCT PREG TEST DATE ( test code = 3576) [id number] 20:30:00* Test Item Value Reference Range Interpretation Comme nts POCT PREG (test code = 1605) Positive On board controls acceptable with C Line (test code = 3574) Yes POCT PREG LOT # (test code = 3575) POCT PREG TEST DATE ( test code = 3576) [facility] URINALYSIS W/O SPECIFIC [id number] 20:29:00* Test Item Value Reference Range Interpretation Comme nts POCT PH U (test code = 3254) 8 mg/dl 5-8 POCT U LEUK EST (test code = 3263) neg Negative - Negative POCT U NIT (test code = 3262) neg Negative - Negati ve POCT U PROT (test code = 3259) neg Negative - Negat magda POCT U GLU (test code = 3256) neg Negative - Negati ve POCT U KETONE (test code = 3258) neg Negative - Neg ative POCT U BLD (test code = 3257) 250 Negative - Negati ve [facility] URINALYSIS W/O SPECIFIC [id number] 20:29:00* Test Item Value Reference Range Interpretation Comme nts POCT PH U (test code = 3254) 8 mg/dl 5-8 POCT U LEUK EST (test code = 3263) neg Negative - Negative POCT U NIT (test code = 3262) neg Negative - Negati ve POCT U PROT (test code = 3259) neg Negative - Negat magda POCT U GLU (test code = 3256) neg Negative - Negati ve POCT U KETONE (test code = 3258) neg Negative - Neg ative POCT U BLD (test code = 3257) 250 Negative - Negati ve [facility] [id number] 13:30:00* Test Item Value Reference Range Interpretation Comme nts POCT PREG (test code = 1605) Negative On board controls acceptable with C Line (test code = 3574) Yes POCT PREG LOT # (test code = 3575) [id number] POCT PREG TEST DATE ( test code = 3576) 06/29/2024 [facility] [id number] 13:30:00* Test Item Value Reference Range Interpretation Comme nts POCT PREG (test code = 1605) Negative On board controls acceptable with C Line (test code = 3574) Yes POCT PREG LOT # (test code = 3575) [id number] POCT PREG TEST DATE ( test code = 3576) 06/29/2024 [facility] [id number] 16:12:00* Test Item Value Reference Range Interpretation Comme nts POCT PREG (test code = 1605) Negative On board controls acceptable with C Line (test code = 3574) Yes POCT PREG LOT # (test code = 3575) POCT PREG TEST DATE ( test code = 3576) [facility] [id number] 16:12:00* Test Item Value Reference Range Interpretation Comme nts POCT PREG (test code = 1605) Negative On board controls acceptable with C Line (test code = 3574) Yes POCT PREG LOT # (test code = 3575) POCT PREG TEST DATE ( test code = 3576) [facility] [id number] 15:12:00* Test Item Value Reference Range Interpretation Comme nts POCT PREG (test code = 1605) Negative On board controls acceptable with C Line (test code = 3574) Yes POCT PREG LOT # (test code = 3575) POCT PREG TEST DATE ( test code = 3576) [facility] [id number] 15:12:00* Test Item Value Reference Range Interpretation Comme nts POCT PREG (test code = 1605) Negative On board controls acceptable with C Line (test code = 3574) Yes POCT PREG LOT # (test code = 3575) POCT PREG TEST DATE ( test code = 3576) [facility] with [id number] 10:05:29* Test Item Value Reference Range Interpretation Comme nts WBC (test code = 6690-2) See_Comment H [Automated message] The system which generated this result transmitted reference range: 4.30 - 11.10 10*3/?L. The reference range was not used to interpret this result as normal/abnormal. RBC (test code = 789-8) See_Comment L [Automated message] The system which generated this result transmitted reference range: 3.93 - 5.25 10*6/?L. The reference range was not used to interpret this result as normal/abnormal. HGB (test code = 718-7) 9.6 g/dL 11.6-15 L HCT (test code = 4544-3) 31.5 % 35.7-45.2 L MCV (test code = 787-2) 87.5 fL 80.6-95.5 MCH (test code = 785-6) 26.7 pg 25.9-32.8 MCHC (test code = 786-4) 30.5 g/dL 31.6-35.1 L RDW-SD (test code = 63505-5) 47.8 fL 39-49.9 RDW-CV (test code = 788-0) 14.9 % 12-15.5 PLT (test code = 777-3) See_Comment [Automated message] The system which generated this result transmitted reference range: 166 - 358 10*3/?L. The reference range was not used to interpret this result as normal/abnormal. MPV (test code = 17848-7) 11.0 fL 9.5-12.9 NRBC/100 WBC (test code = 2844391632) See_Comment [Automated message] The system which generated this result transmitted reference range: 0.0 - 10.0 /100 WBCs. The reference range was not used to interpret this result as normal/abnormal. NRBC x10^3 (test code = 7794777659) See_Comment [Automated message] The system which generated this result transmitted reference range: 10*3/?L. The reference range was not used to interpret this result as normal/abnormal. GRAN MAT (NEUT) % (test code = 770-8) 80.2 % IMM GRAN % (test code = 4454970129) 0.70 % LYMPH % (test code = 736-9) 12.2 % MONO % (test code = 5905-5) 5.7 % EOS % (test code = 713-8) 0.9 % BASO % (test code = 706-2) 0.3 % GRAN MAT x10^3(ANC) (test code = 9200589345) 11.46 10*3/uL 1.88-7.09 H IMM GRAN x10^3 (test code = 8512473674) 0.10 10*3/uL 0-0.06 H LYMPH x10^3 (test code = 731-0) 1.75 10*3/uL 1.32-3.29 MONO x10^3 (test code = 742-7) 0.81 10*3/uL 0.33-0.92 EOS x10^3 (test code = 711-2) 0.13 10*3/uL 0.03-0.39 BASO x10^3 (test code = 704-7) 0.04 10*3/uL 0.01-0.07 Lab Interpretation (test code = 47387-9) [facility] IMMUNE [id number] 23:51:54* Test Item Value Reference Range Interpretation Comme nts RHIG CANDIDATE? (test code = 5055) No- see comment Patient is not a candidate for RhIg- Patient is Rh Positive.Performed at [facility] Laboratory Services - [facility] Blood [address] Free: [phone] No. [id number] [facility] TexasType and Screen - ONCE [id number] 13:33:07* Test Item Value Reference Range Interpretation Comme nts ABO & RH (test code = 20) O Positive Performed at [facility] Laboratory [facility] Blood [place] [address]Toll Free: [phone] No. [id number] IAT (test code = 1185) Negative Performed at [facility] Laboratory Services [facility] Blood [place] [address]Toll Free: [phone] No. [id number] [facility] URINALYSIS W/O SPECIFIC [id number] 15:03:00* Test Item Value Reference Range Interpretation Comme nts POCT PH U (test code = 3254) n/a 5-8 POCT U LEUK EST (test code = 3263) n/a Negative - Negative POCT U NIT (test code = 3262) n/a Negative - Negati ve POCT U PROT (test code = 3259) negative Negative - Negat magda POCT U GLU (test code = 3256) negative Negative - Negati ve POCT U KETONE (test code = 3258) n/a Negative - Neg ative POCT U BLD (test code = 3257) n/a Negative - Negati ve [facility] W/O SPECIFIC [id number] 15:57:00* Test Item Value Reference Range Interpretation Comme nts POCT PH U (test code = 3254) n/a 5-8 POCT U LEUK EST (test code = 3263) n/a Negative - N egative POCT U NIT (test code = 3262) n/a Negative - Negati ve POCT U PROT (test code = 3259) neg Negative - Negat magda POCT U GLU (test code = 3256) neg Negative - Negati ve POCT U KETONE (test code = 3258) n/a Negative - Neg ative POCT U BLD (test code = 3257) n/a Negative - Negati ve [facility] W/O SPECIFIC [id number] 16:18:00* Test Item Value Reference Range Interpretation Comme nts POCT PH U (test code = 3254) n/a 5-8 POCT U LEUK EST (test code = 3263) n/a Negative - Negative POCT U NIT (test code = 3262) n/a Negative - Negati ve POCT U PROT (test code = 3259) negative Negative - Negat magda POCT U GLU (test code = 3256) negative Negative - Negati ve POCT U KETONE (test code = 3258) n/a Negative - Neg ative POCT U BLD (test code = 3257) n/a Negative - Negati ve [facility] History and Physical Notes Date/Time Note Provider Source 2023-03-01 08:46:02 [id number]+[id number]:46:02F ormatting of this note might be different from the original.Attending Note:I personally evaluated and examined the patient on 03/01/2023. NO interval changes, pateint continues with intermittent upper abdominal pain. Consent signed and in chart. Proceed with laparoscopic cholecystectomy with cholangiogram.Mily Delgadillo M.D.03/01/2023 08:47 ource Note - Mily Delgadillo MD - 02/03/2023 8:30 AM CDT [facility] NOTEReason for Visit / Chief Complaint: Abdominal pain, gallstonesHistory of Present Illness: Africa Wang is a 22 year old female with PMHx as below who presents for evaluation of abdominal pain and gallstones. She was seen by her PCP for RUQ, epigastric, and LUQ pain in 10/2022. An U/S was obtained on 01/25/2023 which demonstrated gallstones and sludge. She initially developed upper abdominal pain in 10/2022 that has not improved since her first evaluation. She states that food may trigger the pain. The pain is located in the epigastrium and radiates to the RUQ and LUQ. She reports nausea and indigestion with the pain. She was placed on a trial of PPI's which did not improve the pain. She has tried OTC analgesics which have not helped the pain. She states the pain typically lasts for about 20 minutes. Her symptoms have worsened over the past several weeks and are now associated with decreased appetite and subjective weight loss of 10# over the past month. She does report daily BM's with straining and has occasional blood on the toilet paper after defecation. She has had 2 term pregnancies delivered vaginally, she required an episiotomy with her first . She ahs not FH of cancer or IBD.Past Medical History:Past Medical History: Diagnosis Date Bipolar affective disorder Depression Eczema Gallstones HSV-1 (herpes simplex virus 1) infection 12/[address] Left Pyelonephritis 09/06/2018 Past Surgical History:Past Surgical History: Procedure Laterality Date DILATION AND CURETTAGE (SHX) Lower 09/13/2017 Surgeon: Bereket Castelan [place]; [place] [facility] [place]/30/2017 Allergies:No Known AllergiesMedications:Patient's Medications START taking these medications No medications on file CONTINUE taking these medications which have NOT CHANGED FERROUS SULFATE 325 MG (65 MG IRON) TABLET Take 1 tablet by mouth in the morning and 1 tablet in the evening. TRIAMCINOLONE ACETONIDE 0.1 % CREAM Apply to area(s) 2 (two) times daily. START taking Modified Medications as Prescribed No medications on file STOP taking these medications No medications on file Current Outpatient Medications Medication Sig Dispense Refill triamcinolone acetonide 0.1 % cream Apply to area(s) 2 (two) times daily. 30 g 1 ferrous sulfate 325 mg (65 mg iron) tablet Take 1 tablet by mouth in the morning and 1 tablet in the evening. 60 tablet 2 No current facility-administered medications for this visit. Family History:Family History Problem Relation Age of Onset Asthma Sister Depression Mother No Significant Medical Problems Father Arthritis NoFHx defects NoFHx Breast Cancer NoFHx Colon Cancer NoFHx Ovarian Cancer NoFHx Uterine Cancer NoFHx Cancer NoFHx Diabetes NoFHx Genetic NoFHx Heart NoFHx High cholesterol NoFHx Hypertension NoFHx Mental retardation NoFHx Neurological NoFHx Osteoporosis NoFHx Psychiatry NoFHx Social History:Social History Socioeconomic History Marital status: Single Tobacco Use Smoking status: Never Smokeless tobacco: Never Vaping Use Vaping Use: Every day Substances: Nicotine, Flavoring Devices: Disposable Substance and Sexual Activity Alcohol use: Not Currently Drug use: Not Currently Types: Marijuana Sexual activity: Yes Partners: Male control/protection: I.U.D. Social History Narrative No domestic abuse or violence. Yes one inside cat. Rastafari: Uatsdin Lives with mother. 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 Review of Systems: A 14 point ROS was obtained, only positive responses are in BOLDConstitutional: Fever, chills, loss of appetite, fatigue, unexplained weight loss, unexplained weight gain, weaknessHead/Ears/Nose/Mouth/Throat:Head: Headache, head injury, neck pain, neck stiffnessEars: Ear discharge, hearing loss, ear pain, tinnitusNose: Nose bleeds, sinus congestion, runny nose, postnasal drip, sneezing, sinus pressureMouth: Dental problems, mouth sores, sore tongue, dry mouthThroat: Sore throat, trouble swallowing, voice changeEyes: Discharge, itching, pain, redness, pain, vision disturbance, blurred vision, vision loss, cataracts, glaucomaCV: Chest pain, palpitations, arrhythmias, dyspnea on exertion, othopnea, claudication, edema, coronary artery disease/history of MIRespiratory: Cough, sputum production, hemoptysis, wheezing, shortness of breath, sleep apneaGI: Per HPI : Frequency, urgency, pain or burning with urination, flank pain, hematuria, incontinence, change in urinary stream, discharge, bleeding, pelvic pain, irregular mensesMusculoskeletal: Muscle pain, joint pain, joint swelling, back pain, stiffness, weakness, limitation of motion, arthritis, traumaIntegumentary/Breast: Integumentary: Rash, itching, pigmented lesions, lumps, tenderness, swelling, woundBreast: Pain, lumps, nipple discharge, skin changesNeurological: Weakness, sensory changes, syncope, seizures, headache, numbness, tingling, tremor, traumaHematologic/Lymphatic: Hematologic: Bleeding tendency, easy bruising, history of blood clots, anticoagulation/antiplatelet therapyLymphatic: LymphadenopathyEndocrine: Polyuria, polydipsia, polyphagia, heat or cold intolerance, hair loss, appetite changesAllergic/Immunologic: Allergic: Allergic reactionsImmunologic: Recurrent infectionsPsychiatric: Agitation, confusion, decreased concentration, hallucinations, anxiety, self-injury, sleep disturbance, suicidal ideationPhysical Exam:BP 105/65 (BP Location: Left arm, Patient Position: Sitting, BP CUFF SIZE: Adult Medium) | Pulse 76 | Ht 1.549 m (5' 1") | Wt 60.3 kg (133 lb) | SpO2 99% | BMI 25.13 kg/m? Constitutional: Awake, alert, oriented, in no acute distressHead: Normocephalic, atraumaticEyes: Extraocular movements grossly intact, pupils equal and reactive to light and accomodation, anicteric scleraeEars: Normal external examNose: Normal external examMouth: Moist mucous membranesNeck: Supple, no jugular venous distentionCardiovascular: Regular rate and rhythm Respiratory: Symmetry of chest wall motion, no respiratory distressGI: Soft, mild RUQ and epigastric tenderness to palpation, non-distended, no incisional scarsMusculoskeletal: Normal tone and strength, normal range of motionNeurologic: CN II through XII grossly intact, no focal deficitsSkin: Warm and dry, capillary refill <2 seconds, no jaundice, rashes, lesions, or erythemaPsychiatric: Appropriate mood and affect, no obvious deficits of insight or judgmentRadiology:US ABDOMEN LIMITEDResult Date: 01/26/2023holelithiasis intermixed with trace sludge. No sonographic signs of acute cholecystitis. Preliminary Report Dictated by Resident: Rena Soto I, James Hung MD., have reviewed this study and agree with the above report.Assessment: Africa Wang is a 22 year old female who presents with abdominal pain secondary to gallstones.Plan:Schedule laparoscopic cholecystectomy with cholangiogramRisks (pain, bleeding, infection, scar, injury to surrounding structures, bile leak, retained stones, need for further procedures), benefits, alternatives of laparoscopic cholecystectomy with intraoperative cholangiogram were discussed with the patient; all questions answered; informed consent obtained.Mily Delgadillo M.D.02/03/2023 08:49 14535-0Wuaqocyax History and physical kojqZN9097-40-72V13:48:36Attending History and physical noteTXT1.2.840.661068.1.13.104.2.7.2.92473 9|[id number] for patient xkdp95886-3Brvmvjn and physical noteLNUT[address] Qj[id number] ORYDWGXBXQFKKSRN9214-74-05K42:48:361.2.840 .613453.1.72.3.15|1.2.840.169702.1.13.104. 2.7.2.727879_[id number] [facility] Notes Date/Time Note Provider Source 2023-03-16 19:09:16 E/WJXM7F/DdERYUiO5DE ONAZ0WMMnFZM GVphD7EmUxPw8pRVmcHsZlxA8OfHI6xg 6419-14-50H36:09:16 Please advise. 54531-5Wifrpeunh encounter VmqkAP5590-88-72C08:09:31Telepho ne encounter NoteTXT1.2.840.720078.1.13.104.2 .7.2.522636|[id number] e for patient mglk73387-0AcacSC273659882Vgipj L Minter [address]TX[address] 3364YQCFICBQHERSUCTQZOSEWQ0007-6 8-30T19:09:311.2.840.414102.1.72 .3.15|1.2.840.807453.1.13.104.2. 7.2.727879_[id number] Lety Roque MA [facility] 2023-03-13 17:05:13 95M/axgebhdyR7UUYsD3 1uhi0MXhUBZw yRep5Zdt3xJ1IEWc66JGJlFjdJljKwjh 3662-38-64I85:05:13 Pt was seen in womens. 40598-3Hgbnciaaw encounter NffiSE3159-72-71P84:05:59Telepho ne encounter NoteTXT1.2.840.126198.1.13.104.2 .7.2.851425|[id number] e for patient bylx87290-4CsumVTSNQWLMGH[address] 2902IREGGXRWUHNFXGVAILQUAD9894-4 :05:591.2.840.557194.1.72 .3.15|1.2.840.138570.1.13.104.2. 7.2.727879_[id number] [facility] 2023-03-01 09:28:00 PsUETff9IIelC+7LTzT5 oqZjNbEEORKB QluvdQ+PruUUZX7XAVFxgQaijxQjgBoM 8126-72-42F14:28:00 FULL OPERATIVE NOTE Date of Surgery: 03/01/2023reoperative diagnosis: Gallstones, biliary colic Postoperative diagnosis: Gallstones, biliary colic Procedure: Laparoscopic cholecystectomy with attempted intraoperative cholangiogram Surgeons: Faculty: Mily Delgadillo M.D.Resident: None available Anesthesiologist: Ronald Levin M.D., Meera Heredia CRNA Anesthesia: General endotracheal intubation EBL: 1 mL Sponge, needle, and instrument count: Correct at the end of the case X2 Packs, drains: None Specimen: Gallbladder Findings: Chronic cholecystitis, critical view of safety achieved, cholangiogram attempted but not completed due to inability to pass catheter into the cystic duct Complications: None Indications: Africa Wang is a 22 year old female who presented with abdominal pain secondary to gallstones and sludge. Diagnosis and treatment options were discussed with the patient, the patient wished to proceed with surgery. Procedure: Risks, benefits, alternatives were explained to the patient; all questions were answered; and informed consent was obtained. The patient was brought to the operating room and placed in the supine position on the operating room table. IV sedation and general anesthesia with endotracheal intubation was performed by the PHARMACEUTICAL SCIENTIST without difficulty. Preoperative antibiotics were administered prior to skin incision. SCD's were placed, initiated before induction, and used throughout the operative procedure. The patient s abdomen was then prepped and draped in the standard sterile fashion. A time out was performed verifying patient data, allergies, and planned procedure prior to skin incision. A small skin incision was made at [place] and access was obtained using a Veress needle. The abdomen was then insufflated to 14 mm mercury with CO2 with no hemodynamic consequences. A skin incision was then made at the umbilicus. The camera was placed through a 5 mm Optiview port which was then placed through the umbilical skin incision and advanced into the abdomen under direct visualization. The patient was then placed in the reverse Trendelenburg position and rotated to the left. An 11 mm port was placed in the subxiphoid region at the midline and two 5 mm port below the right costal margin in the mid clavicular and anterior axillary lines, all under direct vision and after the use of 0.25% Marcaine with epinephrine mixed in a 1:1 ratio with 1% Lidocaine with epinephrine for local anesthesia. The gallbladder was retracted superiorly over the liver and the infundibulum retracted laterally. Blunt dissection with a [place] dissector was performed to identify the cystic duct and cystic artery. Both the cystic duct and cystic artery were readily identified, dissected, and skeletonized using the [place] dissector. The critical view was obtained. Attention was first turned to the cystic duct. A clip was placed across the junction of the cystic duct and infundibulum. The cystic duct was divided using laparoscopic scissors below the clip. The cholangiocatheter was then inserted into the medial 5 mm subcostal port abut could not be advanced into the divided cystic duct due to small size of duct and valve present. Multiple attempts were made to pass the cholangiocatheter into the cystic duct. The cholangiogram was then abandoned. Three clips were placed below the divided distal cystic duct. Attention was then turned to the cystic artery. Two clips were placed across the proximal cystic artery, one clip was placed across the distal cystic artery close to the gall bladder wall. The cystic artery was then divided with laparoscopic scissors. The gallbladder was then dissected from the gallbladder fossa using electrocautery. The gallbladder was then placed in an endoscopic retrieval bag and removed via the subxiphoid port. The gallbladder was passed of the sterile field as a surgical specimen. The patient's right upper quadrant was then copiously irrigated with sterile saline, all irrigation was suctioned out. Small bleeding points in the liver bed were controlled with cautery with excellent control. The clips across the cystic duct and cystic artery were noted to be intact without evidence of bile leakage or bleeding. The 11 mm port was closed using an 0-PDS endo stitch. All remaining ports were then removed under direct vision with evacuation of the pneumoperitoneum. All skin incisions were irrigated with sterile saline. All skin incisions were then closed using 4-0 Monocryl in a subcuticular fashion. Dermabond was applied to all skin incisions. The patient was then awakened from general anesthesia, extubated in the operating room, and then transferred to the recovery room in satisfactory condition. The counts were correct at the end of the case. The patient received no blood products. Mily Delgadillo M.D.03/01/2023 10:34 21292-1Lcqzcrn Surgical operation xvxkOQ6278-97-32Z34:39:11[facility] operation noteTXT1.2.840.014875.1.13.104.2 .7.2.815883|[id number] e for patient zlfs23978-7AnrjVVEIFTRDAB[address] TwmhGpcbmpgvxQmohefvziSLSB209492 0912CDRTCWUDQDNHMTSJHDROJG7030-5 0:39:111.2.840.142763.1.72 .3.15|1.2.840.970685.1.13.104.2. 7.2.727879_[id number] [facility] 2023-02-22 13:07:51 6h9krUnw+R/orXeTkAcx hMWMqhe6VxUf kxfBRuuUWKxiEc0JdxumbxRzk7z2bsAn 5710-11-16X14:07:51 Images from the original note were not included.Your procedure is at [facility] on 03/01/23. The address is [address] [place] [address], [address]. [facility] nursing staff will call you the workday before your procedure to let you know what time to arrive.On the day of your procedure, please go inside that door and check in at the desk.Please note: You may not travel home alone and that includes in a taxi or by bus. We must speak to your Responsible Adult (who will be picking you up) the morning of your procedure, before the start of your procedure. This person must be an adult over the age of 18 years of age. Do not eat any solid food after midnight the night before surgery. You may have sips of clear liquids such as water, gatorade, and sprite up until two hours before your scheduled procedure.You may take your medications with a sip of water as directed by physician. Anticoagulants will be per physician guidance. Medication Note(s)/Instructions:n/aPending screening, we may test for COVID. If a patient tests positive, their cases are cancelled and/or rescheduled. COVID SCREENING NOTE: Denies COVID symptoms, no testing required.Additional requests, questions, concerns:n/aPatient verbalized understanding of pre-op instructions and voiced no further questions at this time. 18741-1Sfobc ArmdOW3208-57-06N86:08:10Nurse NoteTXT1.2.840.911231.1.13.104.2 .7.2.346313|[id number] for patient hysf14984-7QdumWLUEVQRFKE[address] GawlApppnpxbwNuquzpgqgOJWK930410 2785SEDWQZGRACGLSZORTLCFUA3924-2 3:08:101.2.840.919198.1.72 .3.15|1.2.840.738867.1.13.104.2. 7.2.727879_[id number] [facility] 2023-02-18 19:15:28 DDhSvhxGvjy4V1mlxoHR ZBV/r2i4P7pk OaulW4qS5gWtECey9b2FRdk3Hdb/4ipv 9342-26-21E19:15:28 Marvin/Shade advising pt she would need to se [facility] or [facility] for evaluation. Unable to send refills. 59223-5Kwntoudye encounter BeerDI1031-38-28T89:15:52Telepho ne encounter NoteTXT1.2.840.903942.1.13.104.2 .7.2.851669|[id number] e for patient twgx59033-2ZuwoET493960779Xzvt M Emiliano [address] 7070ZPKMLIIEVDGDTKCWSNWTJG0040-4 8T19:15:521.2.840.435381.1.72 .3.15|1.2.840.692066.1.13.104.2. 7.2.727879_[id number] Bri Shade Cummings RN [facility] 2023-02-03 08:30:00 IDGcxS3wLQlCN3hc2x2N P1UV8UNczkj6 axgZOvowAGrI9GlhQO3gon4y6uHO6zv2 2912-94-00H29:30:00 Addended by: RAHDA HENDERSON LVN on: 02/03/2023 09:49 AM Modules accepted: Orders 58518-5Ecuakmmn YabhrrujHC5402-81-01V28:49:02Add endum DocumentTXT1.2.840.719029.1.13.1 04.2.7.2.883959|[id number] lable for patient [id number] Mulcare [address] 3396YCZFCUBWJPZABYPOOUQZYV4272-9 02-03T09:49:021.2.840.103892.1.72 .3.15|1.2840.205825.1.13.104.2. 7.2.727879_[id number] Radha Henderson CREDIT UNION FIELD EXAMINER [facility]
[2023-09-05 02:58] LABS: Specific Gravity 1.012 (1.005-1.030)
[2023-09-05 02:59] LABS: Renal Epithelial <5 /HPF (None Seen); Specific Gravity 1.012 (1.005-1.030); Urine Bacteria None Seen /HPF (<20); Urine Bilirubin NEGATIVE (Negative); Urine Blood Negative (Negative); Urine Clarity Turbid (Clear); Urine Color Light-Yellow (Yellow); Urine Glucose NEGATIVE (Negative); Urine Mucus Slight /HPF (None Seen); Urine Protein NEGATIVE (Negative); Urine RBC <5 /HPF (None Seen); Urine Urobilinogen Normal (Normal); Urine pH 6.5 (5.0-7.0)
--- NOTE | 2023-09-05 03:08 | ER ---
Nurse's Notes [facility] Name: Mckenzie Wang Age: 23 yrs Sex: Female : 2000 Arrival Date: 09/05/2023 Time: 02:02 Bed 6 Private MD: Diagnosis: Vaginal pruritis and discharge , Abnormal vaginal discharge Presentation: 09/05 02:22 Chief complaint: Patient states: I wore my friends underwear and afterwards she told me jb4 she had gonorrhea and now I am having itching and I am worried I could have it or something else. When I last tried to have a bm I felt a pop in my uterus area. Coronavirus screen: At this time, the client does not indicate any symptoms associated with coronavirus-19. Ebola Screen: No symptoms or risks identified at this time. Initial Sepsis Screen: Does the patient meet any 2 criteria? No. Patient's initial sepsis screen is negative. Does the patient have a suspected source of infection? No. Patient's initial sepsis screen is negative. Risk Assessment: Do you want to hurt yourself or someone else? Patient reports no desire to harm self or others. Onset of symptoms was September 05, 2023. Transition of care: patient was not received from another setting of care. 02:22 Method Of Arrival: Ambulatory jb4 02:22 Acuity: ROSA 3 jb4 Historical: - Allergies: 02:25 none; jb4 - PMHx: 02:25 Bipolar disorder; jb4 - PSHx: 02:25 D\T\C; Cholecystectomy; Left felopian tube; jb4 - Immunization history:: Adult Immunizations up to date. - Social history:: Smoking status: Reported history of juuling and/or vaping. Patient uses street drugs, marijuana. - Family history:: not pertinent. Screenin:33 [facility] ED Fall Risk Assessment (Adult) History of falling in the last 3 months, km8 including since admission No falls in past 3 months (0 pts) Confusion or Disorientation No (0 pts) Intoxicated or Sedated No (0 pts) Impaired Gait No (0 pts) Mobility Assist Device Used No (0 pt) Altered Elimination No (0 pt) Score/Fall Risk Level 0 - 2 = Low Risk Oriented to surroundings, Maintained a safe environment, Educated pt \T\ family on fall prevention, incl call for assistance when getting out of bed, Assessed \T\ reinforced patient's understanding of fall precautions. Abuse screen: Denies threats or abuse. Denies injuries from another. Nutritional screening: No deficits noted. Tuberculosis screening: No symptoms or risk factors identified. Assessment: 02:33 General: Appears in no apparent distress. comfortable, Behavior is calm, cooperative, km8 appropriate for age. Pain: Complains of pain in groin Pain currently is 4 out of 10 on a pain scale. Neuro: Level of Consciousness is awake, alert, obeys commands, Oriented to person, place, time, situation. Cardiovascular: Denies chest pain, shortness of breath, Capillary refill < 3 seconds Patient's skin is warm and dry. Respiratory: Airway is patent Respiratory effort is even, unlabored, Respiratory pattern is regular, symmetrical. GI: No signs and/or symptoms were reported involving the gastrointestinal system. : Reports discharge, watery, vaginal itching. EENT: No signs and/or symptoms were reported regarding the EENT system. Derm: No signs and/or symptoms reported regarding the dermatologic system. Skin is intact, is healthy with good turgor, Skin is dry, Skin is pink, warm \T\ dry. normal, Skin temperature is warm. Musculoskeletal: No signs and/or symptoms reported regarding the musculoskeletal system. Circulation, motion, and sensation intact. Range of motion: intact in all extremities. Vital Signs: 02:22 BP 127 / 63; Pulse 73; Resp 16; Temp 98.1(O); Pulse Ox 98% on R/A; Weight 62.6 kg (M); jb4 Height 5 ft. 1 in. ; 02:33 BP 127 / 63; Pulse 81; Resp 16; Pulse Ox 97% on R/A; km8 03:35 BP 110 / 83; Pulse 51; Resp 16; Pulse Ox 100% on R/A; km8 02:22 Body Mass Index 26.07 (62.60 kg, 154.94 cm) jb4 Tahir Coma Score: 02:33 Eye Response: spontaneous(4). Motor Response: obeys commands(6). Verbal Response: km8 oriented(5). Total: 15. ED Course: 02:08 Patient arrived in ED. gm2 02:21 Guanako Wallis MD is Attending Physician. sp4 02:25 Triage completed. jb4 02:25 Arm band placed on right wrist. jb4 02:33 Che Hurt, RN is Primary Nurse. km8 02:33 Patient has correct armband on for positive identification. Placed in gown. Bed in low km8 position. Call light in reach. Side rails up X 1. Pulse ox on. NIBP on. Door closed. Lights dimmed. Warm blanket given. 02:33 Patient maintains SpO2 saturation greater than 95% on room air. km8 02:35 Test, Urine Sent. km8 02:35 Urinalysis W/Microscopic Sent. km8 02:50 Assist provider with pelvic exam: Set up pelvic tray. Performed by Guanako Wallis MD km8 Patient tolerated well. 03:07 Elizabeth Smart MD is Referral Physician. sp4 03:10 Patient did not have IV access during this emergency room visit. km8 03:38 Provided Education on: d/c teaching. km8 Administered Medications: 03:06 Drug: metroNIDAZOLE PO 500 mg PO once Route: PO; km8 03:43 Follow up: Response: No adverse reaction km8 03:06 Drug: Promethazine PO 25 mg PO once Route: PO; km8 03:43 Follow up: Response: No adverse reaction km8 03:06 Drug: AZITHromycin PO 1000 mg PO once Route: PO; km8 03:43 Follow up: Response: No adverse reaction km8 03:06 Drug: Ibuprofen PO 800 mg PO once Route: PO; km8 03:43 Follow up: Response: No adverse reaction km8 03:06 Drug: Acetaminophen PO 1000 mg PO once Route: PO; km8 03:43 Follow up: Response: No adverse reaction km8 03:07 Drug: Fluconazole PO 200 mg PO once Route: PO; km8 03:43 Follow up: Response: No adverse reaction km8 03:09 Drug: Rocephin (cefTRIAXone) IM 1 grams IM once Route: IM; Site: right ventrogluteal; km8 03:43 Follow up: Response: No adverse reaction km8 Medication: 02:33 VIS not applicable for this client. km8 Outcome: 03:08 Discharge ordered by . sp4 03:37 Discharged to home ambulatory, km8 03:37 Condition: good 03:37 Discharge instructions given to patient, Instructed on discharge instructions, follow up and referral plans. medication usage, Demonstrated understanding of instructions, follow-up care, medications, Prescriptions given X 4, 03:43 Patient left the ED. km8 Signatures: Tim Martines, RN RN jb4 Guanako Wallis MD MD sp4 Michaela Zavala 2 Che Hurt RN RN km8
--- NOTE | 2023-09-05 03:08 | EDPHYS ---
Physician Documentation [facility] Name: Mckenzie Wang Age: 23 yrs Sex: Female : 2000 Arrival Date: 09/05/2023 Time: 02:02 Bed 6 Private MD: ED Physician Guanako Wallis HPI: 09/05 02:21 This 23 yrs old Female presents to ER via Unassigned with complaints of sp4 Vaginal Pain. 03:35 23-year-old female presents with complaint of vaginal itching starting 2 weeks ago sp4 after unprotected sexual intercourse with another male, as reported by the patient. Itching has worsened over the past 2 weeks and now produces vaginal pain. Patient denied vaginal bleeding.. Historical: - Allergies: 02:25 none; jb4 - PMHx: 02:25 Bipolar disorder; jb4 - PSHx: 02:25 D\T\C; Cholecystectomy; Left felopian tube; jb4 - Immunization history:: Adult Immunizations up to date. - Social history:: Smoking status: Reported history of juuling and/or vaping. Patient uses street drugs, marijuana. - Family history:: not pertinent. ROS: 03:35 Constitutional: Negative for fever, chills, and weight loss, positive vaginal itching sp4 and positive vaginal discomfort 03:35 All other systems are negative, Exam: 03:35 Constitutional: This is a well developed, well nourished patient who is awake, alert, sp4 and in no acute distress. Head/Face: Normocephalic, atraumatic. Eyes: Pupils equal round and reactive to light, extra-ocular motions intact. Lids and lashes normal. Conjunctiva and sclera are not injected. Cornea within normal limits. Periorbital areas with no swelling, redness, or edema. ENT: Nares patent. No nasal discharge, no septal abnormalities noted. Tympanic membranes are normal and external auditory canals are clear. Oropharynx with no redness, swelling, or masses, exudates, or evidence of obstruction, uvula midline. Mucous membranes moist. Neck: Trachea midline, no thyromegaly or masses palpated, and no cervical lymphadenopathy. Supple, full range of motion without nuchal rigidity, or vertebral point tenderness. Chest/axilla: Normal chest wall appearance and motion. Nontender with no deformity. No lesions are appreciated. Cardiovascular: Regular rate and rhythm with a normal S1 and S2. No gallops, murmurs, or rubs. Normal PMI, no JVD. No pulse deficits. Respiratory: Lungs have equal breath sounds bilaterally, clear to auscultation and percussion. No rales, rhonchi or wheezes noted. No increased work of breathing, no retractions or nasal flaring. Abdomen/GI: Soft, with normal bowel sounds. No distension or tympany. No guarding or rebound. No evidence of tenderness throughout. Back: No spinal tenderness. No costovertebral tenderness. Pelvic Exam: Normal external genitalia. Speculum exam with closed cervical os, there is positive abnormal vaginal discharge associated with some falling consistent with either trichomoniasis or bacterial vaginosis. No purulent discharge that would be consistent with a gonorrhea. No chancres or lesions, no signs of herpes ulcers. Female : Normal external genitalia. 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 Normal color with no rashes, no lesions, and no evidence of cellulitis. MS/ Extremity: Pulses equal, no cyanosis. Neurovascular intact. Full, normal range of motion. Neuro: Awake and alert, GCS 15, oriented to person, place, time, and situation. Cranial nerves II-XII grossly intact. Motor strength 5/5 in all extremities. Sensory grossly intact. Psych: Awake, alert, with orientation to person, place and time. Behavior, mood, and affect are within normal limits Vital Signs: 02:22 BP 127 / 63; Pulse 73; Resp 16; Temp 98.1(O); Pulse Ox 98% on R/A; Weight 62.6 kg (M); jb4 Height 5 ft. 1 in. ; 02:33 BP 127 / 63; Pulse 81; Resp 16; Pulse Ox 97% on R/A; km8 03:35 BP 110 / 83; Pulse 51; Resp 16; Pulse Ox 100% on R/A; km8 02:22 Body Mass Index 26.07 (62.60 kg, 154.94 cm) jb4 [place] Coma Score: 02:33 Eye Response: spontaneous(4). Motor Response: obeys commands(6). Verbal Response: km8 oriented(5). Total: 15. MDM: 02:22 Patient medically screened. sp4 03:35 Differential diagnosis: keren infection, cervicitis, dysfunctional uterine bleeding, sp4 dysmenorrhea. Data reviewed: vital signs, nurses notes, lab test result(s), urinalysis, UPT: negative. ED course: Patient was given all necessary management for STD. Will prescribe Flagyl twice a day for 5 days. Also Diflucan once a day for 5 days to prevent yeast infection. . 09/05 02:21 Order name: Urinalysis W/Microscopic; Complete Time: 03:04 sp4 09/05 02:21 Order name: Test, Urine; Complete Time: 03:04 sp4 09/05 02:48 Order name: GC (Alfred/Chl) Probe URINE sp4 Administered Medications: 03:06 Drug: metroNIDAZOLE PO 500 mg PO once Route: PO; km8 03:43 Follow up: Response: No adverse reaction km8 03:06 Drug: Promethazine PO 25 mg PO once Route: PO; km8 03:43 Follow up: Response: No adverse reaction km8 03:06 Drug: AZITHromycin PO 1000 mg PO once Route: PO; km8 03:43 Follow up: Response: No adverse reaction km8 03:06 Drug: Ibuprofen PO 800 mg PO once Route: PO; km8 03:43 Follow up: Response: No adverse reaction km8 03:06 Drug: Acetaminophen PO 1000 mg PO once Route: PO; km8 03:43 Follow up: Response: No adverse reaction km8 03:07 Drug: Fluconazole PO 200 mg PO once Route: PO; km8 03:43 Follow up: Response: No adverse reaction km8 03:09 Drug: Rocephin (cefTRIAXone) IM 1 grams IM once Route: IM; Site: right ventrogluteal; km8 03:43 Follow up: Response: No adverse reaction km8 Disposition Summary: 09/05/23 03:08 Discharge Ordered Notes: We advise NO sexual intercourse for the next 14 days Location: Home sp4 Problem: new sp4 Symptoms: have improved sp4 Condition: Stable sp4 Diagnosis - Vaginal pruritis and discharge , Abnormal vaginal discharge sp4 Followup: sp4 - With: Elizabeth Smart MD - When: 7 - 10 days - Reason: Recheck today's complaints Discharge Instructions: - Discharge Summary Sheet sp4 - Preventing Sexually Transmitted Infections, Adult sp4 Forms: - Patient Portal Instructions sp4 Prescriptions: - Benadryl 25 mg Oral capsule - take 1 capsule ORAL route every 8 hours As needed PRN itching; 30 tablet; sp4 Refills: 0, Product Selection Permitted - Flagyl 500 mg Oral tablet - take 1 tablet ORAL route every 12 hours for 5 days; 10 tablet; Refills: 0, sp4 Product Selection Permitted - Ibuprofen 600 mg Oral Tablet - take 1 tablet ORAL route every 6 hours As needed take with food; 30 tablet; sp4 Refills: 0, Product Selection Permitted - Fluconazole 200 mg Oral tablet - take 1 tablet ORAL route once daily for 5 days; 5 tablet; Refills: 0, Product sp4 Selection Permitted Signatures: Dispatcher [employer] Tim Rao RN RN jb4 Guanako Wallis MD MD sp4 Che Hurt RN RN km8
[2023-09-05 04:07] VITALS: BP 110/83; TEMP 98.1; O2SAT 100
[2023-09-07 13:12] LABS: C.trachomatis RNA,TMA Not Detected (Not Detected)
== END ==
LOC: ER 02:02
DX: L29.9 Pruritus, unspecified (principal)
CPT/HCPCS: 81001; 81025; 87490; 87590; J0696; J2001; Q0169

== ENCOUNTER 2024-06-12 16:14 | Emergency (ER) | payer SELFPAY ==
--- OUTSIDE RECORDS SUMMARY | 2024-06-12 16:20 | XMS REPORT | Continuity of Care Document ---
Author Name Unknown Address [address] [facility] [address] [place] [address] [facility] thconnect Address [address] [facility] [place] [address] Care Team Providers Care Castings Drafter Name Role Phone Marley Clement Primary Care Physician + [phone] TRISTAN TRONCOSO Attending Clinician Unavailable TRISTAN TRONCOSO Attending Clinician Unavailable Tristan Troncoso DO Attending Clinician [phone] Doctor Unassigned, [place] Attending Clinician U CAROLYNN Rivas Attending Clinician Unavailable CAROLYNN ESPARZA Attending Clinician Unavailable DONALD MCGRATH Attending Clinician Unavailable NEMO PRADO Attending Clinician UnavailNEMO Harris Attending Clinician UnavailBrianne Browne PA-C Attending Clinician [phone], [facility] Attending Clinician Unavailable MARLEY VALENCIA Attending Clinician Unavailable ALYSON MICHEL Attending Clinician UnavailAlyson Sheikh DO Attending Clinician [phone] KALINA HARO Attending Clinician UnaKALINA Navas Attending Clinician Jatinder marcum Doctor Unassigned, [place] Attending Clinician U KENNY Stahl Attending Clinician Unavailable Kenny Suresh Attending Clinician [phone] MILY DELGADILLO Attending Clinician Unavailable Razia Flowers Attending Clinician [phone] Mily Delgadillo MD Attending Clinician [phone] BRIANNE BRITTON Attending Clinician Unavailable Marley Clement Attending Clinician [phone] Unknown, Attending Attending Clinician Unavailab Nell Meraz MA Attending Clinician UnavailLivan Irizarry CRNA Attending Clinician [phone] Luis Levin MD Attending Clinician + [phone] Pob, [facility] Main Attending Clinician Unavailmason e Only, [facility] Attending Clinician Unavailable GIDEON ROME Attending Clinician Unavailable Green BOTTOM STAINER, Gideon Attending Clinician [phone] Ebrahim BOTTOM STAINERAlirio Peralesia Attending Clinician [phone], [facility] Usg Room Attending Clinician Unavaila Lesly Norton MD Attending Clinician [phone] LESLY ELLIOTT Attending Clinician UnavailCassy Pacheco MD Attending Clinician [phone] Ultrasound, [facility] Attending Clinician Unavaila Gio Catherine DO Attending Clinician [phone] Vin PACAvis S Attending Clinician [phone] Charlene Squires F Attending Clinician [phone] CASSY RUTHERFORD Admitting Clinician Unavailable ALYSON MICHEL Admitting Clinician Unavailab KALINA Culver Admitting Clinician CAROLYNN You Admitting Clinician Unavailable MILY DELGADILLO Admitting Clinician Unavailable Mily Delgadillo MD Admitting Clinician [phone] MARLEY VALENCIA Admitting Clinician Unavailable Carolynn Esparza MD Admitting Clinician [phone] Cassy Rutherford MD Admitting Clinician [phone] Payers Payer Name Policy Type Policy Number Effective Date Expirati on Date Source [facility] MEDICAID [id number] 2021 00:00:00 Problems Condition Name Condition Details Condition Category Status Onset Date Resolution Date Last Treatment Date Treating Clinician Comments Source Upper abdominal pain Upper abdominal pain Disease Active 2023-0 7-20 00:00: 00 [facility] Gallstones Gallstones Disease Active 0 7-15 00:00: 00 [facility] Well woman exam with routine gynecologi anna exam Well woman exam with routine gynecologi anna exam Disease Active 2021-07 0-04 00:00: 00 [facility] Nausea and vomiting during prior to 22 weeks gestation Nausea and vomiting during prior to 22 weeks gestation Disease Active 3-30 00:00: 00 [facility] No known active problems No known active problems Disease [facility] Pelvic pain in patient at less than 20 weeks gestation Pelvic pain in patient at less than 20 weeks gestation Disease Resolve d 2022-07 0-27 00:00: 00 2023-05-23 00:00:00 2023-05-23 13:16:43 [facility] Pelvic cramping in antepartum period Pelvic cramping in antepartum period Disease Resolve d 2022-07 0-24 00:00: 00 2023-05-23 00:00:00 2023-05-23 13:16:42 [facility] Vaginal bleeding affecting early Vaginal bleeding affecting early Disease Resolve d 2022-07 0-24 00:00: 00 2023-05-23 00:00:00 2023-05-23 13:16:46 [facility] Presence of intrauteri ne contracept magda device (IUD) Presence of intrauteri ne contracept magda device (IUD) Disease Resolve d 2021-07 1-23 00:00: 00 2023-05-23 00:00:00 2023-05-23 13:16:40 [facility] Vaginal discharge Vaginal discharge Disease Resolve d 0 3-03 00:00: 00 2023-05-10 00:00:00 2023-05-10 15:16:58 [facility] Rash and other nonspecifi c skin eruption Rash and other nonspecifi c skin eruption Disease Resolve d 0 3-03 00:00: 00 2023-05-10 00:00:00 2023-05-10 15:17:04 [facility] BMI 28.0-28.9, adult BMI 28.0-28.9, adult Disease Resolve d 2022-0 3-03 00:00: 00 2023-05-10 00:00:00 2023-05-10 15:17:02 [facility] 39 weeks gestation of 39 weeks gestation of Disease Resolve d 2021-1 0-04 00:00: 00 2022-05-12 00:00:00 2022-05-12 14:33:04 [facility] Liveborn infant, of victor , born in hospital by vaginal delivery Liveborn , of [place] , born in hospital by vaginal delivery Disease Resolve d 2021-1 0-04 00:00: 00 2022-05-12 00:00:00 2022-05-12 14:33:08 [facility] Gastroesop hageal reflux disease, unspecifie d whether esophagiti s present Gastroesop hageal reflux disease, unspecifie d whether esophagiti s present Disease Resolve d 2021-0 8-25 00:00: 00 2022-05-12 00:00:00 2022-05-12 14:33:10 [facility] Encounter for tubal ligation counseling Encounter for tubal ligation counseling Disease Resolve d 2021-0 7-19 00:00: 00 2022-05-12 00:00:00 2022-05-12 14:33:12 [facility] Nausea and vomiting during prior to 22 weeks gestation Nausea and vomiting during prior to 22 weeks gestation Disease Resolve d 2021-0 3-30 00:00: 00 2022-05-12 00:00:00 2022-05-12 14:33:13 [facility] High risk , antepartum High risk , antepartum Disease Resolve d 2021-0 3-30 00:00: 00 2022-05-12 00:00:00 2022-05-12 14:33:15 [facility] Tinea corporis Tinea corporis Disease Resolve d 2019-0 4-11 00:00: 00 2021-10-14 00:00:00 2021-10-14 15:53:21 [facility] Pyelonephr itis Pyelonephr itis Disease Resolve d 2018-0 2-20 00:00: 00 2021-10-14 00:00:00 2021-10-14 15:53:09 [facility] Excessive bleeding Excessive bleeding Disease Resolve d 2017-0 2-26 00:00: 00 2021-10-14 00:00:00 2021-10-14 15:53:08 [facility] 40 weeks gestation of 40 weeks gestation of Disease Resolve d 2017-0 2-13 00:00: 00 2021-10-14 00:00:00 2021-10-14 15:53:17 [facility] Normal labor and delivery Normal labor and delivery Disease Resolve d 0 2-13 00:00: 00 2021-10-14 00:00:00 2021-10-14 15:53:18 [facility] Supervisio n of high-risk of young primigravi da Supervisio n of high-risk of young primigravi da Disease Resolve d 2016-07 0-09 00:00: 00 2021-10-14 00:00:00 2021-10-14 15:53:12 [facility] High risk teen in second trimester High risk teen in second trimester Disease Resolve d 2016-07 0-09 00:00: 00 2021-10-14 00:00:00 2021-10-14 15:53:13 [facility] care insufficie nt, second trimester care insufficie nt, second trimester Disease Resolve d 2016-07 0-09 00:00: 00 2021-10-14 00:00:00 2021-10-14 15:53:17 [facility] Allergies, Adverse Reactions, Alerts Allergy Name Allergy Type Status Severity Reaction(s) Onset Date Inactive Date Treating Clinician Comments Source NO KNOWN ALLERGIE S Drug Class Active [facility] Social History Social Habit Start Date Stop Date Quantity Comments Source ASSERTION 2021-08-04 00:00:00 [facility] Gender identity [facility] Alcoholic beverage intake 2024-06-02 00:00:00 2024-06-02 00:00:00 Ex-drinker (finding) [facility] Alcohol intake 2023-05-23 00:00:00 2023-05-23 00:00:00 Ex-drinker (finding) [facility] History of Social function 2023-03-01 00:00:00 2023-03-01 00:00:00 [facility] Tobacco Comment 2023-02-22 00:00:00 2023-02-22 00:00:00 vapes [facility] Tobacco use and exposure 2023-02-22 00:00:00 2023-02-22 00:00:00 Smokeless tobacco non-user [facility] Exposure to SARS-CoV-2 (event) 2022-11-05 00:00:00 2022-11-15 12:57:00 Not sure [facility] Sex assigned at 2000 00:00:00 2000 00:00:00 [facility] Smoking Status Start Date Stop Date Source Never smoked tobacco [facility] Medications Ordered Medication Name Filled Medication Name Start Date Stop Date Current Medication? Ordering Clinician Indication Dosage Frequency Signature (SIG) Comments Components Source cefTRIAXone (ROCEPHIN) 350 mg/mL in Lidocaine 1 % injection 500 mg 2023-07 02:30: 00 06-03 03:27 :00 No 500mg 500 mg, Intramuscu lar, ONCE, 1 dose, On 06/02/24 at 2030, SHAMAR, Reason for Anti-Infec tive: Empiric Therapy for Suspected Infection, Empiric Therapy Site: Pelvic, Duration of therapy: Once (ED) [facility] azithromyci n (ZITHROMAX) tablet 1,000 mg 2023-07 01:45: 00 06-03 03:28 :00 No 1000mg 1,000 mg, Oral, ONCE, 1 dose, On 06/02/24 at 1945, SHAMAR, Reason for Anti-Infec tive: Empiric Therapy for Suspected Infection, Empiric Therapy Site: Pelvic, Duration of therapy: Once (ED) [facility] metroNIDAZO LE 500 mg tablet 2023-07 00:00: 00 Yes [id number] 500mg Take 1 tablet by mouth in the morning and 1 tablet in the evening. [facility] ARIPiprazol e (ABILIFY) 2 mg tablet 2023-07 00:00: 00 07-03 05:59 :00 Yes [id number] 2mg Take 1 tablet by mouth in the morning for 30 days. [facility] ketorolac (TORADOL) injection 30 mg 2022-07 05:45: 00 05-15 04:55 :00 No 30mg 30 mg, Slow IV Push, ONCE, 1 dose, On 05/15/23 at 0045, Routine [facility] FENTanyl PF (SUBLIMAZE (PF)) injection 50 mcg 2022-07 05:15: 00 05-15 04:27 :00 No 50ug 50 mcg, Slow IV Push, ONCE, 1 dose, On 05/15/23 at 0015, Routine [facility] ondansetron (ZOFRAN (PF)) injection 4 mg 2022-07 05:00: 00 05-15 04:59 :00 No 4mg 4 mg, Slow IV Push, ONCE, 1 dose, On 05/15/23 at 0000, SHAMAR [facility] iopamidol (ISOVUE 370-500 mL) injection 80 mL 2022-07 05:00: 00 05-15 05:00 :00 No [id number] 80mL 80 mL, Intravenou s, ONCE, 1 dose, On 05/15/23 at 0000, Routine [facility] morpHINE (4 mg/mL) injection 4 mg 2022-07 04:00: 00 05-15 03:56 :00 No 4mg 4 mg, Slow IV Push, ONCE, 1 dose, On 05/14/23 at 2300, STAT [facility] ondansetron (ZOFRAN (PF)) injection 4 mg 2022-07 04:00: 00 05-15 03:56 :00 No 4mg 4 mg, Slow IV Push, ONCE, 1 dose, On Sat /28/23 at 2300, SHAMAR [facility] ketorolac 10 mg tablet 2022-07 00:00: 00 Yes [id number] 10mg Take 1 tablet by mouth every 6 (six) hours as needed for Pain (scale 1-3). [facility] docusate (COLACE) capsule 100 mg 2022-07 13:00: 00 05-15 02:05 :19 No 100mg 100 mg, Oral, Q12H, First dose on Tue05/14/23 at 0800, Until Discontinu ed, Routine [facility] simethicone (GAS RELIEF (SIMETHICON E)) chewable tablet 160 mg 2022-07 02:00: 00 05-15 02:05 :19 No 160mg 160 mg, Oral, PC+HS, First dose on Tue05/13/23 at 2100, Until Discontinu ed, Routine [facility] ondansetron (ZOFRAN (PF)) injection 4 mg 2022-07 01:37: 02 05-14 01:38 :00 No 4mg 4 mg, Slow IV Push, PRN, 1 dose, Starting on Tue05/13/23 at 2036, Until Tue05/13/23 at 2037, Routine, Nausea and Vomiting (N/V), PACU [facility] FENTanyl PF (SUBLIMAZE (PF)) injection 25 mcg 2022-07 01:37: 02 05-14 02:43 :04 No 25ug 25 mcg, Slow IV Push, Q5MIN PRN, 4 doses, Starting on Tue05/13/23 at 2036, Until Tue05/13/23 at 2142, Routine, Pain (scale 4-6), PACU [facility] diphenhydrA MINE (BENADRYL) injection 25 mg 2022-07 01:13: 28 05-15 02:05 :19 No 25mg 25 mg, Slow IV Push, Q6HPRN, Starting on Tue05/13/23 at 2012, Until Tue05/14/23 at 2104, Routine, Itching [facility] ondansetron (ZOFRAN (PF)) injection 4 mg 2022-07 01:13: 26 05-15 02:05 :19 No 4mg 4 mg, Slow IV Push, Q4HPRN, Starting on Tue05/13/23 at 2012, Until 05/14/23 at 210, Routine, Nausea and Vomiting (N/V) [facility] HYDROcodone -acetaminop hen (NORCO 5) 5-325 mg tablet 1 tablet 2022-07 01:13: 22 05-15 02:05 :19 No 1{tbl} 1 tablet, Oral, Q6HPRN, Starting on Tue05/13/23 at 2012, Until 05/14/23 at 210, Routine, Pain (scale 4-6) [facility] ibuprofen (IBU) tablet 600 mg 2022-07 01:13: 19 05-15 02:05 :19 No 600mg 600 mg, Oral, Q6HPRN, Starting on Tue05/13/23 at 2012, Until 05/14/23 at 210, Routine, Pain (scale 1-3) [facility] bupivacaine (preserv free) 0.5% (SENSORCAIN E MPF) injection 2022-07 00:57: 00 05-15 02:05 :19 No PRN, Starting on Tue05/13/23 at 1957, Until 05/14/23 at 210, Routine, Intra-op [facility] sodium chloride 0.9 % irrigation solution 2022-07 00:30: 00 05-14 02:41 :13 No PRN, Starting on Tue05/13/23 at 1930, Until Tue05/13/23 at 2141, Intra-op [facility] HYDROcodone -acetaminop hen 5-325 mg tablet 2022-07 00:00: 00 05-22 04:59 :00 No [id number] 1{tbl} Take 1 tablet by mouth every 6 (six) hours as needed for Pain (scale 4-6) or Pain (scale 7-10) for up to 7 days. Indication s: acute pain [facility] morpHINE (2 mg/mL) injection 2 mg 2022-07 22:45: 00 05-13 22:48 :00 No 2mg 2 mg, Slow IV Push, ONCE, 1 dose, On Tue05/13/23 at 1745, STAT [facility] ondansetron (ZOFRAN (PF)) injection 4 mg 2022-07 21:00: 00 05-13 21:04 :00 No 4mg 4 mg, Slow IV Push, ONCE, 1 dose, On Tue05/13/23 at 1600, SHAMAR [facility] morpHINE (4 mg/mL) injection 4 mg 2022-07 21:00: 00 05-13 21:03 :00 No 4mg 4 mg, Slow IV Push, ONCE, 1 dose, On Tue05/13/23 at 1600, STAT [facility] fluconazole (DIFLUCAN) 150 mg tablet 03-04 00:00: 00 03-05 04:59 :00 No [id number] 150mg Take 1 tablet by mouth once now for 1 dose. [facility] morpHINE (2 mg/mL) injection 2 mg 03-01 15:39: 37 Yes 2mg 2 mg, Slow IV Push, Q5MIN PRN, 5 doses, Starting on Tue03/01/23 at 1039, Until Discontinu ed, Routine, Pain (scale 4-6), PACU [facility] ondansetron (ZOFRAN (PF)) injection 4 mg 03-01 15:39: 37 Yes 4mg 4 mg, Slow IV Push, PRN, 1 dose, Starting on Tue03/01/23 at 1039, Until Discontinu ed, Routine, Nausea and Vomiting (N/V), PACU [facility] sodium chloride 0.9 % irrigation solution 03-01 14:30: 00 03-01 16:08 :26 No PRN, Starting on Tue03/01/23 at 0930, Until Tue03/01/23 at 1108, Intra-op [facility] iohexoL (OMNIPAQUE 300-50 mL)) injection 03-01 14:30: 00 03-01 16:08 :26 No PRN, Starting on Tue03/01/23 at 0930, Until Tue03/01/23 at 1108, Routine, Intra-op [facility] bupivacaine (preserv free) (SENSORCAIN E MPF) 0.25 % (2.5 mg/mL) 30 mL, lidocaine-e pinephrine (XYLOCAINE WITH EPINEPHRINE ) 1 %-1:100,000 30 mL 03-01 14:28: 00 03-01 16:08 :26 No PRN, Starting on Tue03/01/23 at 0928, Intra-op [facility] lactated ringers IV infusion 1,000 mL 03-01 13:30: 00 03-01 13:37 :00 No 1000mL at 42 mL/hr, 1,000 mL, IV Infusion, ONCE, 1 dose, On Tue03/01/23 at 0830, Routine, DSU Pre-op [facility] ibuprofen 800 mg tablet 03-01 00:00: 00 05-10 00:00 :00 No [id number] 800mg Take 1 tablet by mouth every 6 (six) hours as needed for Pain (scale 4-6). [facility] HYDROcodone -acetaminop hen (NORCO) 5-325 mg tablet 03-01 00:00: 00 03-09 04:59 :00 No [id number] 1{tbl} Take 1 tablet by mouth every 6 (six) hours as needed for Pain (scale 7-10) for up to 7 days. Indication s: acute pain [facility] fluconazole (DIFLUCAN) 150 mg tablet 12-30 00:00: 00 12-31 04:59 :00 No [id number] 150mg Take 1 tablet by mouth once now for 1 dose. [facility] omeprazole 20 mg capsule 11-12 00:00: 00 2023- 05-13 04:59 :00 No [id number] 20mg Take 1 capsule by mouth in the morning for 14 days. [facility] triamcinolo ne acetonide 0.1 % cream 09-17 00:00: 00 03-01 00:00 :00 No [id number] Apply to area(s) 2 (two) times daily. [facility] metroNIDAZO LE 500 mg tablet 09-17 00:00: 00 09-25 05:59 :00 No [id number] 500mg Take 1 tablet by mouth every 12 (twelve) hours for 7 days. [facility] levonorgest reL (KYLEENA) IUD 1 Device 2021-07 17:15: 00 06-09 16:22 :00 No [id number] 1{devic e} [facility] miSOPROStoL 200 mcg tablet 2021-07 00:00: 00 06-09 00:00 :00 No [id number] 200ug Take 1 tablet by mouth SEE-INSTRU CTIONS. Take one tab the night before and one tab the morning of procedure [facility] fluoxetine HCl (PROZAC ORAL) 2021-07 0 08:16: 25 04-21 00:00 :00 No Take by mouth. [facility] famotidine (PEPCID (PF)) injection 20 mg 2021-07 0-05 01:00: 00 04-20 22:33 :17 No 20mg 20 mg, Slow IV Push, Q12H, 4 doses, First dose on Tue04/20/22 at 2000, Last dose on Tue04/22/22 at 0800, Routine [facility] vitamin w/FA tablet 2021-07 0-05 00:00: 00 Yes [id number] 1{tbl} Take 1 tablet by mouth in the morning. [facility] docusate 100 mg capsule 2021-07 0-05 00:00: 00 Yes [id number] 200mg Take 2 capsules by mouth once daily as needed for Constipati on. [facility] ibuprofen 600 mg tablet 2022 00:00: 00 Yes [id number] 600mg Take 1 tablet by mouth every 6 (six) hours as needed (Pain). Take with food or milk. [facility] ferrous sulfate 325 mg (65 mg iron) tablet 2021-07 00:00: 00 03-01 00:00 :00 No [id number] 325mg Take 1 tablet by mouth in the morning and 1 tablet in the evening. [facility] rho(D) immune globulin (RHOGAM) syringe 300 mcg 2021-07 22:33: 32 Yes 300ug 300 mcg, Intramuscu lar, ONCE, For 1 dose, Conditiona l, Routine [facility] HYDROcodone -acetaminop hen (NORCO 5) 5-325 mg tablet 1 tablet 2021-07 22:33: 28 Yes 1{tbl} 1 tablet, Oral, Q6HPRN, Starting on Tue04/20/22 at 1733, Until Discontinu ed, Routine, Pain (scale 7-10) [facility] ibuprofen (IBU) tablet 600 mg 2021-07 22:33: 28 Yes 600mg 600 mg, Oral, Q6HPRN, Starting on Tue04/20/22 at 1733, Until Discontinu ed, Routine, Pain (scale 4-6) [facility] acetaminoph en (TYLENOL) tablet 650 mg 2021-07 22:33: 28 Yes 650mg 650 mg, Oral, Q6HPRN, Starting on Tue04/20/22 at 1733, Until Discontinu ed, Routine, Pain (scale 1-3) [facility] diphenhydrA MINE (BENADRYL) tablet 25 mg 2021-07 22:33: 28 Yes 25mg 25 mg, Oral, Q6HPRN, Starting on Tue04/20/22 at 1733, Until Discontinu ed, Routine, Sleep, Itching [facility] ondansetron (ZOFRAN (PF)) injection 4 mg 2021-07 22:33: 28 Yes 4mg 4 mg, Slow IV Push, Q8HPRN, Starting on Tue04/20/22 at 1733, Until Discontinu ed, Routine, Nausea and Vomiting (N/V) [facility] simethicone (GAS RELIEF (SIMETHICON E)) chewable tablet 160 mg 2021-07 004 22:33: 28 Yes 160mg 160 mg, Oral, PC+HSPRN, Starting on Tue04/20/22 at 1733, Until Discontinu ed, Routine, Gas [facility] docusate (COLACE) capsule 200 mg 2021-07 004 22:33: 28 Yes 200mg 200 mg, Oral, QDAILYPRN, Starting on Tue04/20/22 at 1733, Until Discontinu ed, Routine, Constipati on [facility] magnesium hydroxide (MILK OF MAGNESIA) 400 mg/5 mL suspension 30 mL 2021-07 004 22:33: 28 Yes 30mL 30 mL, Oral, QDAILYPRN, Starting on Tue04/20/22 at 1733, Until Discontinu ed, Routine, Constipati on [facility] benzocaine- menthol (DERMOPLAST ) 20-0.5 % topical spray 2021-07 004 22:33: 28 Yes Topical, PRN, Starting on Tue04/20/22 at 1733, Until Discontinu ed, Routine, Perineum discomfort [facility] witch Renuka (TUCKS) 50 % topical pad 2021-07 004 22:33: 17 Yes Topical, Q4HPRN, Starting on Tue04/20/22 at 1733, Until Discontinu ed, Routine, rectal/hem orrhoidal pain [facility] fluoxetine HCl (PROZAC ORAL) 2021-07 0 17:24: 43 Yes Take by mouth. [facility] PIB fentaNYL-ro pivacaine 2 mcg/mL-0.1 % (PF) in NS 200 mL epidural infusion RTU 2021-07 004 14:11: 00 04-20 23:30 :10 No Epidural, ONCE INTRA PROCEDURE, Starting on Tue04/20/22 at 0911, Until Tue04/20/22 at 1830, Routine, Intra-op [facility] lidocaine-e pinephrine (XYLOCAINE W/EPINEPHRI NE) 1.5 %-1:200,000 injection 2021-07 004 14:10: 00 04-20 23:30 :10 No Epidural, ONCE INTRA PROCEDURE, Starting on Tue04/20/22 at 0910, Until Tue04/20/22 at 1830, Routine, Intra-op [facility] lidocaine 1% (XYLOCAINE) 100 mg/10 mL (1 %) injection 2021-07 14:10: 00 04-20 23:30 :10 No Infiltrati on, ONCE INTRA PROCEDURE, Starting on Tue04/20/22 at 0910, Until Tue04/20/22 at 1830, Routine, Intra-op [facility] lactated ringers IV infusion 500 mL 2021-07 08:45: 00 04-20 10:42 :00 No 500mL at 999 mL/hr, 500 mL, IV Infusion, ONCE, 1 dose, On Tue04/20/22 at 0345, Routine [facility] lactated ringers IV infusion 500 mL 2021-07 08:43: 17 04-20 22:33 :21 No 500mL at 999 mL/hr, 500 mL, IV Infusion, PRN - SEE INSTRUCTIO NS, Starting on Tue04/20/22 at 0343, Until Tue04/20/22 at 1733, Routine [facility] FENTanyl PF (SUBLIMAZE (PF)) injection 100 mcg 2021-07 08:43: 17 04-20 22:33 :17 No 100ug 100 mcg, Slow IV Push, Q1HPRN, Starting on Tue04/20/22 at 0343, Until Tue04/20/22 at 1733, Routine, contractio n pain without an epidural and SVE < 8 cm and Cat I strip [facility] oxytocin (PITOCIN) 30 units in NS 500 mL IV infusion 2021-07 08:43: 17 04-20 22:33 :21 No 2mU/min at 2-40 mL/hr, IV Infusion, TITRATE, Starting on Tue04/20/22 at 0343, Until Tue04/20/22 at 1733, SHAMAR [facility] sodium citrate-cit xi acid (BICITRA) 500-334 mg/5 mL solution 30 mL 2021-07 0- 08:43: 17 04-20 12:59 :00 No 30mL 30 mL, Oral, PRE-PROCED URE ONCE, 1 dose, Starting on Tue04/20/22 at 0343, Until Discontinu ed, Routine, Surgery/Pr ocedure [facility] D5W-LR IV infusion 1,000 mL 2021-07 0- 08:43: 17 04-20 22:33 :21 No 1000mL at 1-125 mL/hr, IV Infusion, TITRATE, Starting on Tue04/20/22 at 034, Until Tue04/20/22 at 1733, Routine [facility] lactated ringers IV infusion 500 mL 2021-07 0 08:43: 16 04-20 14:46 :00 No 500mL at 999 mL/hr, 500 mL, IV Infusion, PRN - SEE INSTRUCTIO NS, 1 dose, Starting on Tue04/20/22 at 034, Until Discontinu ed, Routine [facility] 25/iron fum/folic/d tolliver (-1 ORAL) 04-14 10:08: 05 Yes Take by mouth. [facility] 25/iron fum/folic/d tolliver (-1 ORAL) 04-01 11:23: 13 Yes Take by mouth. [facility] famotidine 40 mg tablet 04-01 00:00: 00 04-21 00:00 :00 No [id number] 40mg Take 1 tablet by mouth in the morning. [facility] clindamycin (CLEOCIN) 100 mg vaginal suppository 02-25 00:00: 00 04-01 00:00 :00 No [id number] 100mg Insert 1 Suppositor y into vagina at bedtime. [facility] famotidine 40 mg tablet 02-23 00:00: 00 04-01 00:00 :00 No [id number] 40mg Take 1 tablet by mouth in the morning. [facility] fluoxetine HCl (PROZAC ORAL) 01-29 21:39: 50 Yes Take by mouth. [facility] metroNIDAZO LE 500 mg tablet 6-23 00:00: 00 04-01 00:00 :00 No [id number] 500mg Take 1 tablet by mouth every 12 (twelve) hours. [facility] azithromyci n 500 mg tablet - 00:00: 00 04-01 00:00 :00 No [id number] 500mg Take 1 tablet by mouth daily. [facility] metoclopram yamini HCl 10 mg tablet 330 00:00: 00 04-21 00:00 :00 No [id number] 10mg Take 1 tablet by mouth every 6 (six) hours as needed for Nausea and Vomiting (N/V). [facility] fluticasone propionate 50 mcg/actuati on nasal spray 2018-07 00:00: 00 04-21 00:00 :00 No [id number] 2{spray } Use 2 Sprays in each nostril daily. [facility] ARIPiprazol e 10 mg tablet 2018-07 00:00: 00 04-21 00:00 :00 No 10mg Take 10 mg by mouth daily. [facility] SERTraline (ZOLOFT) 50 mg tablet 04-11 00:00: 00 04-21 00:00 :00 No [id number] Take 1 tab po daily [facility] Immunizations Ordered Immunization Name Filled Immunization Name Date Status Comments Source TDAP 2022-02-02 00:00:00 Completed [facility] TDAP 2022-02-02 00:00:00 Completed [facility] TDAP 2022-02-02 00:00:00 Completed [facility] TDAP 2022-02-02 00:00:00 Completed [facility] TDAP 2022-02-02 00:00:00 Completed [facility] TDAP 2022-02-02 00:00:00 Completed [facility] TDAP 2022-02-02 00:00:00 Completed [facility] TDAP 2022-02-02 00:00:00 Completed [facility] TDAP 2022-02-02 00:00:00 Completed [facility] TDAP 2022-02-02 00:00:00 Completed [facility] TDAP 2022-02-02 00:00:00 Completed [facility] TDAP 2022-02-02 00:00:00 Completed [facility] TDAP 2022-02-02 00:00:00 Completed [facility] TDAP 2022-02-02 00:00:00 Completed [facility] TDAP 2022-02-02 00:00:00 Completed [facility] TDAP 2022-02-02 00:00:00 Completed [facility] TDAP 2022-02-02 00:00:00 Completed [facility] TDAP 2022-02-02 00:00:00 Completed [facility] TDAP 2022-02-02 00:00:00 Completed [facility] TDAP 2022-02-02 00:00:00 Completed [facility] TDAP 2022-02-02 00:00:00 Completed [facility] TDAP 2022-02-02 00:00:00 Completed [facility] TDAP 2022-02-02 00:00:00 Completed [facility] TDAP 2022-02-02 00:00:00 Completed [facility] TDAP 2022-02-02 00:00:00 Completed [facility] TDAP 2022-02-02 00:00:00 Completed [facility] TDAP 2022-02-02 00:00:00 Completed [facility] TDAP 2022-02-02 00:00:00 Completed [facility] TDAP 2022-02-02 00:00:00 Completed [facility] TDAP 2022-02-02 00:00:00 Completed [facility] TDAP 2022-02-02 00:00:00 Completed [facility] TDAP 2022-02-02 00:00:00 Completed [facility] TDAP 2022-02-02 00:00:00 Completed [facility] TDAP 2022-02-02 00:00:00 Completed [facility] TDAP 2022-02-02 00:00:00 Completed [facility] TDAP 2022-02-02 00:00:00 Completed [facility] TDAP 2022-02-02 00:00:00 Completed [facility] TDAP 2022-02-02 00:00:00 Completed [facility] TDAP 2022-02-02 00:00:00 Completed [facility] Influenza Virus Vaccine Quad IM, Preserv and ABX Free 6 MO-64 YRS 2021-10-14 00:00:00 Completed [facility] Influenza Virus Vaccine Quad IM, Preserv and ABX Free 6 MO-64 YRS 2021-10-14 00:00:00 Completed [facility] Influenza Virus Vaccine Quad IM, Preserv and ABX Free 6 MO-64 YRS 2021-10-14 00:00:00 Completed [facility] Influenza Virus Vaccine Quad IM, Preserv and ABX Free 6 MO-64 YRS 2021-10-14 00:00:00 Completed [facility] Influenza Virus Vaccine Quad IM, Preserv and ABX Free 6 MO-64 2021-10-14 00:00:00 Completed [facility] Influenza Virus Vaccine Quad IM, Preserv and ABX Free 6 MO-64 2021-10-14 00:00:00 Completed [facility] Influenza Virus Vaccine Quad IM, Preserv and ABX Free 6 MO-64 2021-10-14 00:00:00 Completed [facility] Influenza Virus Vaccine Quad IM, Preserv and ABX Free 6 MO-64 YRS 2021-10-14 00:00:00 Completed [facility] Influenza Virus Vaccine Quad IM, Preserv and ABX Free 6 MO-64 2021-10-14 00:00:00 Completed [facility] Influenza Virus Vaccine Quad IM, Preserv and ABX Free 6 MO-64 2021-10-14 00:00:00 Completed [facility] Influenza Virus Vaccine Quad IM, Preserv and ABX Free 6 MO-64 YRS 2021-10-14 00:00:00 Completed [facility] Influenza Virus Vaccine Quad IM, Preserv and ABX Free 6 MO-64 YRS 2021-10-14 00:00:00 Completed [facility] Influenza Virus Vaccine Quad IM, Preserv and ABX Free 6 MO-64 YRS 2021-10-14 00:00:00 Completed [facility] Influenza Virus Vaccine Quad IM, Preserv and ABX Free 6 MO-64 YRS 2021-10-14 00:00:00 Completed [facility] Influenza Virus Vaccine Quad IM, Preserv and ABX Free 6 MO-64 YRS 2021-10-14 00:00:00 Completed [facility] Influenza Virus Vaccine Quad IM, Preserv and ABX Free 6 MO-64 YRS 2021-10-14 00:00:00 Completed [facility] Influenza Virus Vaccine Quad IM, Preserv and ABX Free 6 MO-64 YRS 2021-10-14 00:00:00 Completed [facility] Influenza Virus Vaccine Quad IM, Preserv and ABX Free 6 MO-64 YRS 2021-10-14 00:00:00 Completed [facility] Influenza Virus Vaccine Quad IM, Preserv and ABX Free 6 MO-64 YRS 2021-10-14 00:00:00 Completed [facility] Influenza Virus Vaccine Quad IM, Preserv and ABX Free 6 MO-64 YRS 2021-10-14 00:00:00 Completed [facility] Influenza Virus Vaccine Quad IM, Preserv and ABX Free 6 MO-64 YRS 2021-10-14 00:00:00 Completed [facility] Influenza Virus Vaccine Quad IM, Preserv and ABX Free 6 MO-64 YRS 2021-10-14 00:00:00 Completed [facility] Influenza Virus Vaccine Quad IM, Preserv and ABX Free 6 MO-64 YRS 2021-10-14 00:00:00 Completed [facility] Influenza Virus Vaccine Quad IM, Preserv and ABX Free 6 MO-64 YRS 2021-10-14 00:00:00 Completed [facility] Influenza Virus Vaccine Quad IM, Preserv and ABX Free 6 MO-64 YRS 2021-10-14 00:00:00 Completed [facility] Influenza Virus Vaccine Quad IM, Preserv and ABX Free 6 MO-64 YRS 2021-10-14 00:00:00 Completed [facility] Influenza Virus Vaccine Quad IM, Preserv and ABX Free 6 MO-64 YRS 2021-10-14 00:00:00 Completed [facility] Influenza Virus Vaccine Quad IM, Preserv and ABX Free 6 MO-64 YRS 2021-10-14 00:00:00 Completed [facility] Influenza Virus Vaccine Quad IM, Preserv and ABX Free 6 MO-64 YRS 2021-10-14 00:00:00 Completed [facility] Influenza Virus Vaccine Quad IM, Preserv and ABX Free 6 MO-64 YRS 2021-10-14 00:00:00 Completed [facility] Influenza Virus Vaccine Quad IM, Preserv and ABX Free 6 MO-64 YRS 2021-10-14 00:00:00 Completed [facility] Influenza Virus Vaccine Quad IM, Preserv and ABX Free 6 MO-64 YRS 2021-10-14 00:00:00 Completed [facility] Influenza Virus Vaccine Quad IM, Preserv and ABX Free 6 MO-64 YRS 2021-10-14 00:00:00 Completed [facility] Influenza Virus Vaccine Quad IM, Preserv and ABX Free 6 MO-64 YRS 2021-10-14 00:00:00 Completed [facility] Influenza Virus Vaccine Quad IM, Preserv and ABX Free 6 MO-64 YRS 2021-10-14 00:00:00 Completed [facility] Influenza Virus Vaccine Quad IM, Preserv and ABX Free 6 MO-64 YRS 2021-10-14 00:00:00 Completed [facility] Influenza Virus Vaccine Quad IM, Preserv and ABX Free 6 MO-64 YRS 2021-10-14 00:00:00 Completed [facility] Influenza Virus Vaccine Quad IM, Preserv and ABX Free 6 MO-64 YRS (FLUCELVAX) 2021-10-14 00:00:00 Completed [facility] Influenza Virus Vaccine Quad IM, Preserv and ABX Free 6 MO-64 YRS (FLUCELVAX) 2021-10-14 00:00:00 Completed [facility] Influenza Virus Vaccine Quad .5 mL IM 6+ MO 2019-04-25 00:00:00 Completed [facility] Influenza Virus Vaccine Quad .5 mL IM 6+ MO 2019-04-25 00:00:00 Completed [facility] Influenza Virus Vaccine Quad .5 mL IM 6+ MO 2019-04-25 00:00:00 Completed [facility] Influenza Virus Vaccine Quad .5 mL IM 6+ MO 2019-04-25 00:00:00 Completed [facility] Influenza Virus Vaccine Quad .5 mL IM 6+ MO 2019-04-25 00:00:00 Completed [facility] Influenza Virus Vaccine Quad .5 mL IM 6+ MO 2019-04-25 00:00:00 Completed [facility] Influenza Virus Vaccine Quad .5 mL IM 6+ MO 2019-04-25 00:00:00 Completed [facility] Influenza Virus Vaccine Quad .5 mL IM 6+ MO 2019-04-25 00:00:00 Completed [facility] Influenza Virus Vaccine Quad .5 mL IM 6+ MO 2019-04-25 00:00:00 Completed [facility] Influenza Virus Vaccine Quad .5 mL IM 6+ MO 2019-04-25 00:00:00 Completed [facility] Influenza Virus Vaccine Quad .5 mL IM 6+ MO 2019-04-25 00:00:00 Completed [facility] Influenza Virus Vaccine Quad .5 mL IM 6+ MO 2019-04-25 00:00:00 Completed [facility] Influenza Virus Vaccine Quad .5 mL IM 6+ MO 2019-04-25 00:00:00 Completed [facility] Influenza Virus Vaccine Quad .5 mL IM 6+ MO 2019-04-25 00:00:00 Completed [facility] Influenza Virus Vaccine Quad .5 mL IM 6+ MO 2019-04-25 00:00:00 Completed [facility] Influenza Virus Vaccine Quad .5 mL IM 6+ MO 2019-04-25 00:00:00 Completed [facility] Influenza Virus Vaccine Quad .5 mL IM 6+ MO 2019-04-25 00:00:00 Completed [facility] Influenza Virus Vaccine Quad .5 mL IM 6+ MO 2019-04-25 00:00:00 Completed [facility] Influenza Virus Vaccine Quad .5 mL IM 6+ MO 2019-04-25 00:00:00 Completed [facility] Influenza Virus Vaccine Quad .5 mL IM 6+ MO 2019-04-25 00:00:00 Completed [facility] Influenza Virus Vaccine Quad .5 mL IM 6+ MO 2019-04-25 00:00:00 Completed [facility] Influenza Virus Vaccine Quad .5 mL IM 6+ MO 2019-04-25 00:00:00 Completed [facility] Influenza Virus Vaccine Quad .5 mL IM 6+ MO 2019-04-25 00:00:00 Completed [facility] Influenza Virus Vaccine Quad .5 mL IM 6+ MO 2019-04-25 00:00:00 Completed [facility] Influenza Virus Vaccine Quad .5 mL IM 6+ MO 2019-04-25 00:00:00 Completed [facility] Influenza Virus Vaccine Quad .5 mL IM 6+ MO 2019-04-25 00:00:00 Completed [facility] Influenza Virus Vaccine Quad .5 mL IM 6+ MO 2019-04-25 00:00:00 Completed [facility] Influenza Virus Vaccine Quad .5 mL IM 6+ MO 2019-04-25 00:00:00 Completed [facility] Influenza Virus Vaccine Quad .5 mL IM 6+ MO 2019-04-25 00:00:00 Completed [facility] Influenza Virus Vaccine Quad .5 mL IM 6+ MO 2019-04-25 00:00:00 Completed [facility] Influenza Virus Vaccine Quad .5 mL IM 6+ MO 2019-04-25 00:00:00 Completed [facility] Influenza Virus Vaccine Quad .5 mL IM 6+ MO 2019-04-25 00:00:00 Completed [facility] Influenza Virus Vaccine Quad .5 mL IM 6+ MO 2019-04-25 00:00:00 Completed [facility] Influenza Virus Vaccine Quad .5 mL IM 6+ MO 2019-04-25 00:00:00 Completed [facility] Influenza Virus Vaccine Quad .5 mL IM 6+ MO 2019-04-25 00:00:00 Completed [facility] Influenza Virus Vaccine Quad .5 mL IM 6+ MO 2019-04-25 00:00:00 Completed [facility] Influenza Virus Vaccine Quad .5 mL IM 6+ MO 2019-04-25 00:00:00 Completed [facility] Influenza Virus Vaccine Quad .5 mL IM 6+ MO (FLUZONE/FLULAVAL/F LUARIX) 2019-04-25 00:00:00 Completed [facility] Influenza Virus Vaccine Quad .5 mL IM 6+ MO (FLUZONE/FLULAVAL/F LUARIX) 2019-04-25 00:00:00 Completed [facility] Influenza Virus Vaccine Quad .5 mL IM 6+ MO 2018-11-07 00:00:00 Completed [facility] Influenza Virus Vaccine Quad .5 mL IM 6+ MO 2018-11-07 00:00:00 Completed [facility] Influenza Virus Vaccine Quad .5 mL IM 6+ MO 2018-11-07 00:00:00 Completed [facility] Influenza Virus Vaccine Quad .5 mL IM 6+ MO 2018-11-07 00:00:00 Completed [facility] Influenza Virus Vaccine Quad .5 mL IM 6+ MO 2018-11-07 00:00:00 Completed [facility] Influenza Virus Vaccine Quad .5 mL IM 6+ MO 2018-11-07 00:00:00 Completed [facility] Influenza Virus Vaccine Quad .5 mL IM 6+ MO 2018-11-07 00:00:00 Completed [facility] Influenza Virus Vaccine Quad .5 mL IM 6+ MO 2018-11-07 00:00:00 Completed [facility] Influenza Virus Vaccine Quad .5 mL IM 6+ MO 2018-11-07 00:00:00 Completed [facility] Influenza Virus Vaccine Quad .5 mL IM 6+ MO 2018-11-07 00:00:00 Completed [facility] Influenza Virus Vaccine Quad .5 mL IM 6+ MO 2018-11-07 00:00:00 Completed [facility] Influenza Virus Vaccine Quad .5 mL IM 6+ MO 2018-11-07 00:00:00 Completed [facility] Influenza Virus Vaccine Quad .5 mL IM 6+ MO 2018-11-07 00:00:00 Completed [facility] Influenza Virus Vaccine Quad .5 mL IM 6+ MO 2018-11-07 00:00:00 Completed [facility] Influenza Virus Vaccine Quad .5 mL IM 6+ MO 2018-11-07 00:00:00 Completed [facility] Influenza Virus Vaccine Quad .5 mL IM 6+ MO 2018-11-07 00:00:00 Completed [facility] Influenza Virus Vaccine Quad .5 mL IM 6+ MO 2018-11-07 00:00:00 Completed [facility] Influenza Virus Vaccine Quad .5 mL IM 6+ MO 2018-11-07 00:00:00 Completed [facility] Influenza Virus Vaccine Quad .5 mL IM 6+ MO 2018-11-07 00:00:00 Completed [facility] Influenza Virus Vaccine Quad .5 mL IM 6+ MO 2018-11-07 00:00:00 Completed [facility] Influenza Virus Vaccine Quad .5 mL IM 6+ MO 2018-11-07 00:00:00 Completed [facility] Influenza Virus Vaccine Quad .5 mL IM 6+ MO 2018-11-07 00:00:00 Completed [facility] Influenza Virus Vaccine Quad .5 mL IM 6+ MO 2018-11-07 00:00:00 Completed [facility] Influenza Virus Vaccine Quad .5 mL IM 6+ MO 2018-11-07 00:00:00 Completed [facility] Influenza Virus Vaccine Quad .5 mL IM 6+ MO 2018-11-07 00:00:00 Completed [facility] Influenza Virus Vaccine Quad .5 mL IM 6+ MO 2018-11-07 00:00:00 Completed [facility] Influenza Virus Vaccine Quad .5 mL IM 6+ MO 2018-11-07 00:00:00 Completed [facility] Influenza Virus Vaccine Quad .5 mL IM 6+ MO 2018-11-07 00:00:00 Completed [facility] Influenza Virus Vaccine Quad .5 mL IM 6+ MO 2018-11-07 00:00:00 Completed [facility] Influenza Virus Vaccine Quad .5 mL IM 6+ MO 2018-11-07 00:00:00 Completed [facility] Influenza Virus Vaccine Quad .5 mL IM 6+ MO 2018-11-07 00:00:00 Completed [facility] Influenza Virus Vaccine Quad .5 mL IM 6+ MO 2018-11-07 00:00:00 Completed [facility] Influenza Virus Vaccine Quad .5 mL IM 6+ MO 2018-11-07 00:00:00 Completed [facility] Influenza Virus Vaccine Quad .5 mL IM 6+ MO 2018-11-07 00:00:00 Completed [facility] Influenza Virus Vaccine Quad .5 mL IM 6+ MO 2018-11-07 00:00:00 Completed [facility] Influenza Virus Vaccine Quad .5 mL IM 6+ MO 2018-11-07 00:00:00 Completed [facility] Influenza Virus Vaccine Quad .5 mL IM 6+ MO 2018-11-07 00:00:00 Completed [facility] Influenza Virus Vaccine Quad .5 mL IM 6+ MO (FLUZONE/FLULAVAL/F LUARIX) 2018-11-07 00:00:00 Completed [facility] Influenza Virus Vaccine Quad .5 mL IM 6+ MO (FLUZONE/FLULAVAL/F LUARIX) 2018-11-07 00:00:00 Completed TDAP 2017-06-13 00:00:00 Completed [facility] TDAP 2017-06-13 00:00:00 Completed [facility] TDAP 2017-06-13 00:00:00 Completed [facility] TDAP 2017-06-13 00:00:00 Completed [facility] TDAP 2017-06-13 00:00:00 Completed [facility] TDAP 2017-06-13 00:00:00 Completed [facility] TDAP 2017-06-13 00:00:00 Completed [facility] TDAP 2017-06-13 00:00:00 Completed [facility] TDAP 2017-06-13 00:00:00 Completed [facility] TDAP 2017-06-13 00:00:00 Completed [facility] TDAP 2017-06-13 00:00:00 Completed [facility] TDAP 2017-06-13 00:00:00 Completed [facility] TDAP 2017-06-13 00:00:00 Completed [facility] TDAP 2017-06-13 00:00:00 Completed [facility] TDAP 2017-06-13 00:00:00 Completed [facility] TDAP 2017-06-13 00:00:00 Completed [facility] TDAP 2017-06-13 00:00:00 Completed [facility] TDAP 2017-06-13 00:00:00 Completed [facility] TDAP 2017-06-13 00:00:00 Completed [facility] TDAP 2017-06-13 00:00:00 Completed [facility] TDAP 2017-06-13 00:00:00 Completed [facility] TDAP 2017-06-13 00:00:00 Completed [facility] TDAP 2017-06-13 00:00:00 Completed [facility] TDAP 2017-06-13 00:00:00 Completed [facility] TDAP 2017-06-13 00:00:00 Completed [facility] TDAP 2017-06-13 00:00:00 Completed [facility] TDAP 2017-06-13 00:00:00 Completed [facility] TDAP 2017-06-13 00:00:00 Completed [facility] TDAP 2017-06-13 00:00:00 Completed [facility] TDAP 2017-06-13 00:00:00 Completed [facility] TDAP 2017-06-13 00:00:00 Completed [facility] TDAP 2017-06-13 00:00:00 Completed [facility] TDAP 2017-06-13 00:00:00 Completed [facility] TDAP 2017-06-13 00:00:00 Completed [facility] TDAP 2017-06-13 00:00:00 Completed [facility] TDAP 2017-06-13 00:00:00 Completed [facility] TDAP 2017-06-13 00:00:00 Completed [facility] TDAP 2017-06-13 00:00:00 Completed [facility] TDAP 2017-06-13 00:00:00 Completed Influenza Virus Vaccine Quad IM 3+ 2017-05-23 00:00:00 Completed [facility] Influenza Virus Vaccine Quad IM 32017-05-23 00:00:00 Completed [facility] Influenza Virus Vaccine Quad IM 32017-05-23 00:00:00 Completed [facility] Influenza Virus Vaccine Quad IM 2017-05-23 00:00:00 Completed [facility] Influenza Virus Vaccine Quad IM 3+ 2017-05-23 00:00:00 Completed [facility] Influenza Virus Vaccine Quad IM 3+ 2017-05-23 00:00:00 Completed [facility] Influenza Virus Vaccine Quad IM 3+ 2017-05-23 00:00:00 Completed [facility] Influenza Virus Vaccine Quad IM 3+ YRS 2017-05-23 00:00:00 Completed [facility] Influenza Virus Vaccine Quad IM 3+ YRS 2017-05-23 00:00:00 Completed [facility] Influenza Virus Vaccine Quad IM 3+ YRS 2017-05-23 00:00:00 Completed [facility] Influenza Virus Vaccine Quad IM 3+ YRS 2017-05-23 00:00:00 Completed [facility] Influenza Virus Vaccine Quad IM 3+ YRS 2017-05-23 00:00:00 Completed [facility] Influenza Virus Vaccine Quad IM 3+ YRS 2017-05-23 00:00:00 Completed [facility] Influenza Virus Vaccine Quad IM 3+ YRS 2017-05-23 00:00:00 Completed [facility] Influenza Virus Vaccine Quad IM 3+ YRS 2017-05-23 00:00:00 Completed [facility] Influenza Virus Vaccine Quad IM 3+ YRS 2017-05-23 00:00:00 Completed [facility] Influenza Virus Vaccine Quad IM 3+ YRS 2017-05-23 00:00:00 Completed [facility] Influenza Virus Vaccine Quad IM 3+ YRS 2017-05-23 00:00:00 Completed [facility] Influenza Virus Vaccine Quad IM 3+ YRS 2017-05-23 00:00:00 Completed [facility] Influenza Virus Vaccine Quad IM 3+ YRS 2017-05-23 00:00:00 Completed [facility] Influenza Virus Vaccine Quad IM 3+ YRS 2017-05-23 00:00:00 Completed [facility] Influenza Virus Vaccine Quad IM 3+ YRS 2017-05-23 00:00:00 Completed [facility] Influenza Virus Vaccine Quad IM 3+ YRS 2017-05-23 00:00:00 Completed [facility] Influenza Virus Vaccine Quad IM 3+ YRS 2017-05-23 00:00:00 Completed [facility] Influenza Virus Vaccine Quad IM 3+ YRS 2017-05-23 00:00:00 Completed [facility] Influenza Virus Vaccine Quad IM 3+ YRS 2017-05-23 00:00:00 Completed [facility] Influenza Virus Vaccine Quad IM 3+ YRS 2017-05-23 00:00:00 Completed [facility] Influenza Virus Vaccine Quad IM 3+ YRS 2017-05-23 00:00:00 Completed [facility] Influenza Virus Vaccine Quad IM 3+ YRS 2017-05-23 00:00:00 Completed [facility] Influenza Virus Vaccine Quad IM 3+ YRS 2017-05-23 00:00:00 Completed [facility] Influenza Virus Vaccine Quad IM 3+ YRS 2017-05-23 00:00:00 Completed [facility] Influenza Virus Vaccine Quad IM 3+ YRS 2017-05-23 00:00:00 Completed [facility] Influenza Virus Vaccine Quad IM 3+ YRS 2017-05-23 00:00:00 Completed [facility] Influenza Virus Vaccine Quad IM 3+ YRS 2017-05-23 00:00:00 Completed [facility] Influenza Virus Vaccine Quad IM 3+ YRS 2017-05-23 00:00:00 Completed [facility] Influenza Virus Vaccine Quad IM 3+ YRS 2017-05-23 00:00:00 Completed [facility] Influenza Virus Vaccine Quad IM 3+ YRS 2017-05-23 00:00:00 Completed [facility] Influenza Virus Vaccine Quad IM 3+ YRS 2017-05-23 00:00:00 Completed [facility] Influenza Virus Vaccine Quad IM 3+ YRS 2017-05-23 00:00:00 Completed [facility] Influenza Virus Vaccine Quad IM 3+ YRS Unknown Completed [facility] TDAP Unknown Completed [facility] Influenza Virus Vaccine Quad IM, Preserv and ABX Free 6 MO-64 YRS (FLUCELVAX) Unknown Completed [facility] Influenza Virus Vaccine Quad IM 3+ YRS Unknown Completed [facility] TDAP Unknown Completed [facility] Influenza Virus Vaccine Quad IM, Preserv and ABX Free 6 MO-64 YRS (FLUCELVAX) Unknown Completed [facility] Influenza Virus Vaccine Quad IM 3+ YRS Unknown Completed [facility] TDAP Unknown Completed [facility] Influenza Virus Vaccine Quad IM, Preserv and ABX Free 6 MO-64 YRS (FLUCELVAX) Unknown Completed [facility] Influenza Virus Vaccine Quad IM 3+ YRS Unknown Completed [facility] TDAP Unknown Completed [facility] Influenza Virus Vaccine Quad IM, Preserv and ABX Free 6 MO-64 YRS (FLUCELVAX) Unknown Completed [facility] Influenza Virus Vaccine Quad IM 3+ YRS Unknown Completed [facility] TDAP Unknown Completed [facility] Influenza Virus Vaccine Quad IM, Preserv and ABX Free 6 MO-64 YRS (FLUCELVAX) Unknown Completed [facility] Influenza Virus Vaccine Quad IM 3+ YRS Unknown Completed [facility] TDAP Unknown Completed [facility] Influenza Virus Vaccine Quad IM, Preserv and ABX Free 6 MO-64 YRS (FLUCELVAX) Unknown Completed [facility] Influenza Virus Vaccine Quad IM 3+ YRS Unknown Completed [facility] TDAP Unknown Completed [facility] Influenza Virus Vaccine Quad IM, Preserv and ABX Free 6 MO-64 YRS (FLUCELVAX) Unknown Completed [facility] Influenza Virus Vaccine Quad IM 3+ YRS Unknown Completed [facility] TDAP Unknown Completed [facility] Influenza Virus Vaccine Quad IM, Preserv and ABX Free 6 MO-64 YRS (FLUCELVAX) Unknown Completed [facility] Influenza Virus Vaccine Quad IM 3+ YRS Unknown Completed [facility] TDAP Unknown Completed [facility] Influenza Virus Vaccine Quad IM, Preserv and ABX Free 6 MO-64 YRS (FLUCELVAX) Unknown Com[facility] [facility] Influ[facility] Virus Vaccine Quad IM 3+ YRS Unknown Completed [facility] TDAP Unknown Completed [facility] Influenza Virus Vaccine Quad IM, Preserv and ABX Free 6 MO-64 YRS (FLUCELVAX) Unknown Completed [facility] Influenza Virus Vaccine Quad IM 3+ YRS Unknown Completed [facility] TDAP Unknown Completed [facility] Influenza Virus Vaccine Quad IM, Preserv and ABX Free 6 MO-64 YRS (FLUCELVAX) Unknown Completed [facility] Influenza Virus Vaccine Quad IM 3+ YRS Unknown Completed [facility] TDAP Unknown Completed [facility] Influenza Virus Vaccine Quad IM, Preserv and ABX Free 6 MO-64 YRS (FLUCELVAX) Unknown Completed [facility] Influenza Virus Vaccine Quad IM 3+ YRS Unknown Completed [facility] TDAP Unknown Completed [facility] Influenza Virus Vaccine Quad IM, Preserv and ABX Free 6 MO-64 YRS (FLUCELVAX) Unknown Completed [facility] Influenza Virus Vaccine Quad IM 3+ YRS Unknown Completed [facility] TDAP Unknown Completed [facility] Influenza Virus Vaccine Quad IM, Preserv and ABX Free 6 MO-64 YRS (FLUCELVAX) Unknown Completed [facility] Influenza Virus Vaccine Quad IM 3+ YRS Unknown Completed [facility] TDAP Unknown Completed [facility] Influenza Virus Vaccine Quad IM, Preserv and ABX Free 6 MO-64 YRS (FLUCELVAX) Unknown Completed [facility] Influenza Virus Vaccine Quad IM 3+ YRS Unknown Completed [facility] TDAP Unknown Completed [facility] Influenza Virus Vaccine Quad IM, Preserv and ABX Free 6 MO-64 YRS (FLUCELVAX) Unknown Completed [facility] Influenza Virus Vaccine Quad IM 3+ YRS Unknown Completed [facility] TDAP Unknown Completed [facility] Influenza Virus Vaccine Quad IM, Preserv and ABX Free 6 MO-64 YRS (FLUCELVAX) Unknown Completed [facility] Influenza Virus Vaccine Quad IM 3+ YRS Unknown Completed [facility] TDAP Unknown Completed [facility] Influenza Virus Vaccine Quad IM, Preserv and ABX Free 6 MO-64 YRS (FLUCELVAX) Unknown Completed [facility] Influenza Virus Vaccine Quad IM 3+ YRS Unknown Completed [facility] TDAP Unknown Completed [facility] Influenza Virus Vaccine Quad IM, Preserv and ABX Free 6 MO-64 YRS (FLUCELVAX) Unknown Completed [facility] Influenza Virus Vaccine Quad IM 3+ YRS Unknown Completed [facility] TDAP Unknown Completed [facility] Influenza Virus Vaccine Quad IM, Preserv and ABX Free 6 MO-64 YRS (FLUCELVAX) Unknown Completed [facility] Vital Signs Vital Name Observation Time Observation Value Comments S ource Systolic blood pressure 2024-06-03 03:33:00 123 mm[Hg] [facility] Diastolic blood pressure 2024-06-03 03:33:00 88 mm[Hg] [facility] Heart rate 2024-06-03 03:33:00 86 /min [facility] Respiratory rate 2024-06-03 03:33:00 16 /min [facility] Oxygen saturation in Arterial blood by Pulse oximetry 2024-06-03 03:33:00 100 /min [facility] Body temperature 2024-06-03 01:13:00 36.89 Coretta [facility] Body height 2024-06-03 01:13:00 154.9 cm [facility] Body weight 2024-06-03 01:13:00 45.36 kg [facility] BMI 2024-06-03 01:13:00 18.89 kg/m2 [facility] Systolic blood pressure 2023-05-23 19:00:00 103 mm[Hg] [facility] Diastolic blood pressure 2023-05-23 19:00:00 69 mm[Hg] [facility] Heart rate 2023-05-23 19:00:00 59 /min [facility] Body temperature 2023-05-23 19:00:00 36.94 Coret[facility] Respiratory rate 2023-05-23 19:00:00 18 /min [facility] Body weight 2023-05-23 19:00:00 63.413 kg [facility] BMI 2023-05-23 19:00:00 26.41 kg/m2 [facility] Systolic blood pressure 2023-05-15 05:00:00 113 mm[Hg] [facility] Diastolic blood pressure 2023-05-15 05:00:00 76 mm[Hg] [facility] Heart rate 2023-05-15 05:00:00 67 /min [facility] Respiratory rate 2023-05-15 05:00:00 13 /min [facility] Oxygen saturation in Arterial blood by Pulse oximetry 2023-05-15 05:00:00 99 /min [facility] Body temperature 2023-05-15 04:30:00 36.94 Coretta [facility] Body height 2023-05-15 03:41:00 154.9 cm [facility] Body weight 2023-05-15 03:41:00 63.504 kg [facility] BMI 2023-05-15 03:41:00 26.45 kg/m2 [facility] Systolic blood pressure 2023-05-14 12:30:00 116 mm[Hg] [facility] Diastolic blood pressure 2023-05-14 12:30:00 60 mm[Hg] [facility] Heart rate 2023-05-14 12:30:00 68 /min [facility] Body temperature 2023-05-14 12:30:00 36.89 Coret[facility] Respiratory rate 2023-05-14 12:30:00 18 /min [facility] Oxygen saturation in Arterial blood by Pulse oximetry 2023-05-14 09:21:00 99 /min [facility] Body height 2023-05-13 19:48:00 154.9 cm [facility] Body weight 2023-05-13 19:48:00 63.504 kg [facility] BMI 2023-05-13 19:48:00 26.45 kg/m2 [facility] Systolic blood pressure 2023-05-14 01:59:00 116 mm[Hg] [facility] Diastolic blood pressure 2023-05-14 01:59:00 66 mm[Hg] [facility] Heart rate 2023-05-14 01:59:00 65 /min [facility] Respiratory rate 2023-05-14 01:59:00 8 /min [facility] Oxygen saturation in Arterial blood by Pulse oximetry 2023-05-14 01:59:00 100 /min [facility] Systolic blood pressure 2023-05-14 01:59:00 116 mm[Hg] [facility] Diastolic blood pressure 2023-05-14 01:59:00 66 mm[Hg] [facility] Heart rate 2023-05-14 01:59:00 65 /min [facility] Respiratory rate 2023-05-14 01:59:00 8 /min [facility] Oxygen saturation in Arterial blood by Pulse oximetry 2023-05-14 01:59:00 100 /min [facility] Body temperature 2023-05-13 23:43:00 37 [facility] Body temperature 2023-05-13 23:43:00 37 C[facility] Body height 2023-05-13 19:48:00 154.9 cm [facility] Body weight 2023-05-13 19:48:00 63.504 [facility] BMI 2023-05-13 19:48:00 26.45 kg/m2 [facility] Body height 2023-05-13 19:48:00 154.9 cm [facility] Body weight 2023-05-13 19:48:00 63.504 kg [facility] BMI 2023-05-13 19:48:00 26.45 [facility] Systolic blood pressure 2023-05-11 00:10:00 110 mm[Hg] [facility] Diastolic blood pressure 2023-05-11 00:10:00 69 mm[Hg] [facility] Heart rate 2023-05-11 00:10:00 70 /min [facility] Body temperature 2023-05-11 00:10:00 37.17 C[facility] Respiratory rate 2023-05-11 00:10:00 16 /min [facility] Oxygen saturation in Arterial blood by Pulse oximetry 2023-05-11 00:10:00 96 /min [facility] Body height 2023-05-10 21:04:00 154.9 cm [facility] Body weight 2023-05-10 21:04:00 63.504 kg [facility] BMI 2023-05-10 21:04:00 26.45 kg/m2 [facility] Systolic blood pressure 2023-05-10 20:31:00 107 mm[Hg] [facility] Diastolic blood pressure 2023-05-10 20:31:00 65 mm[Hg] [facility] Heart rate 2023-05-10 20:31:00 69 /min [facility] Body temperature 2023-05-10 20:31:00 36.78 [place] [facility] Respiratory rate 2023-05-10 20:31:00 17 /min [facility] Body height 2023-05-10 20:31:00 154.9 cm [facility] Body weight 2023-05-10 20:31:00 63.594 kg [facility] BMI 2023-05-10 20:31:00 26.49 kg/m2 [facility] Systolic blood pressure 2023-03-15 17:53:00 104 mm[Hg] [facility] Diastolic blood pressure 2023-03-15 17:53:00 58 mm[Hg] [facility] Heart rate 2023-03-15 17:53:00 80 /min [facility] Body temperature 2023-03-15 17:53:00 36.72 Coret[facility] Respiratory rate 2023-03-15 17:53:00 18 /min [facility] Body height 2023-03-15 17:53:00 154.9 cm [facility] Body weight 2023-03-15 17:53:00 59.421 kg [facility] BMI 2023-03-15 17:53:00 24.75 kg/m2 [facility] Oxygen saturation in Arterial blood by Pulse oximetry 2023-03-15 17:53:00 98 /min [facility] Systolic blood pressure 2023-03-04 23:23:00 112 mm[Hg] [facility] Diastolic blood pressure 2023-03-04 23:23:00 59 mm[Hg] [facility] Heart rate 2023-03-04 23:23:00 77 /min [facility] Body temperature 2023-03-04 23:23:00 36.94 Coret[facility] Body height 2023-03-04 23:23:00 154.9 cm [facility] Body weight 2023-03-04 23:23:00 59.648 kg [facility] BMI 2023-03-04 23:23:00 24.85 kg/m2 [facility] Oxygen saturation in Arterial blood by Pulse oximetry 2023-03-04 23:23:00 95 /min [facility] Oxygen saturation in Arterial blood by Pulse oximetry 2023-03-01 16:55:00 98 /min [facility] Systolic blood pressure 2023-03-01 16:51:00 115 mm[Hg] [facility] Diastolic blood pressure 2023-03-01 16:51:00 69 mm[Hg] [facility] Heart rate 2023-03-01 16:51:00 55 /min [facility] Respiratory rate 2023-03-01 16:51:00 14 /min [facility] Body temperature 2023-03-01 15:40:00 36.11 [facility] Body height 2023-02-22 18:00:00 154.9 cm [facility] Body weight 2023-02-22 18:00:00 58.968 kg [facility] BMI 2023-02-22 18:00:00 24.56 kg/m2 [facility] Oxygen saturation in Arterial blood by Pulse oximetry 2023-03-01 16:55:00 98 /min [facility] Systolic blood pressure 2023-03-01 16:51:00 115 mm[Hg] [facility] Diastolic blood pressure 2023-03-01 16:51:00 69 mm[Hg] [facility] Heart rate 2023-03-01 16:51:00 55 /min [facility] Respiratory rate 2023-03-01 16:51:00 14 /min [facility] Body temperature 2023-03-01 15:40:00 36.11 C[facility] Body height 2023-02-22 18:00:00 154.9 cm [facility] Body weight 2023-02-22 18:00:00 58.968 kg [facility] BMI 2023-02-22 18:00:00 24.56 kg/m2 [facility] Systolic blood pressure 2023-02-03 13:22:00 105 mm[Hg] [facility] Diastolic blood pressure 2023-02-03 13:22:00 65 mm[Hg] [facility] Heart rate 2023-02-03 13:22:00 76 /min [facility] Body height 2023-02-03 13:22:00 154.9 cm [facility] Body weight 2023-02-03 13:22:00 60.328 kg [facility] BMI 2023-02-03 13:22:00 25.13 kg/m2 [facility] Oxygen saturation in Arterial blood by Pulse oximetry 2023-02-03 13:22:00 99 /min [facility] Systolic blood pressure 2023-01-15 00:33:00 118 mm[Hg] [facility] Diastolic blood pressure 2023-01-15 00:33:00 74 mm[Hg] [facility] Heart rate 2023-01-15 00:33:00 66 /min [facility] Body temperature 2023-01-15 00:33:00 37 C[facility] Respiratory rate 2023-01-15 00:33:00 16 /min [facility] Body height 2023-01-15 00:33:00 154.9 cm [facility] Body weight 2023-01-15 00:33:00 60.283 kg [facility] BMI 2023-01-15 00:33:00 25.11 kg/m2 [facility] Oxygen saturation in Arterial blood by Pulse oximetry 2023-01-15 00:33:00 98 /min [facility] Systolic blood pressure 2022-12-29 19:45:00 109 mm[Hg] [facility] Diastolic blood pressure 2022-12-29 19:45:00 70 mm[Hg] [facility] Heart rate 2022-12-29 19:45:00 68 /min [facility] Body temperature 2022-12-29 19:45:00 36.89 Coret[facility] Respiratory rate 2022-12-29 19:45:00 18 /min [facility] Body height 2022-12-29 19:45:00 154.9 cm [facility] Body weight 2022-12-29 19:45:00 60.328 kg [facility] BMI 2022-12-29 19:45:00 25.13 kg/m2 [facility] Systolic blood pressure 2022-11-12 15:34:00 104 mm[Hg] [facility] Diastolic blood pressure 2022-11-12 15:34:00 67 mm[Hg] [facility] Heart rate 2022-11-12 15:34:00 62 /min [facility] Body temperature 2022-11-12 15:34:00 37.11 C[facility] Body height 2022-11-12 15:34:00 154.9 cm [facility] Body weight 2022-11-12 15:34:00 63.05 kg [facility] BMI 2022-11-12 15:34:00 26.26 kg/m2 [facility] Systolic blood pressure 2022-09-17 17:01:00 107 mm[Hg] [facility] Diastolic blood pressure 2022-09-17 17:01:00 66 mm[Hg] [facility] Heart rate 2022-09-17 17:01:00 65 /min [facility] Respiratory rate 2022-09-17 17:01:00 18 /min [facility] Body height 2022-09-17 17:01:00 154.9 cm [facility] Body weight 2022-09-17 17:01:00 68.04 kg [facility] BMI 2022-09-17 17:01:00 28.34 kg/m2 [facility] Systolic blood pressure 2022-07-07 16:50:00 96 mm[Hg] [facility] Diastolic blood pressure 2022-07-07 16:50:00 63 mm[Hg] [facility] Heart rate 2022-07-07 16:50:00 64 /min [facility] Body temperature 2022-07-07 16:50:00 36.72 C[facility] Respiratory rate 2022-07-07 16:50:00 18 /min [facility] Body height 2022-07-07 16:50:00 154.9 cm [facility] Body weight 2022-07-07 16:50:00 70.308 kg [facility] BMI 2022-07-07 16:50:00 29.29 kg/m2 [facility] Systolic blood pressure 2022-06-09 15:03:00 98 mm[Hg] [facility] Diastolic blood pressure 2022-06-09 15:03:00 65 mm[Hg] [facility] Heart rate 2022-06-09 15:03:00 79 /min [facility] Body temperature 2022-06-09 15:03:00 36.44 [facility] Respiratory rate 2022-06-09 15:03:00 18 /min [facility] Body height 2022-06-09 15:03:00 154.9 cm [facility] Body weight 2022-06-09 15:03:00 71.215 kg [facility] BMI 2022-06-09 15:03:00 29.66 kg/m2 [facility] Systolic blood pressure 2022-05-12 18:02:00 101 mm[Hg] [facility] Diastolic blood pressure 2022-05-12 18:02:00 67 mm[Hg] [facility] Heart rate 2022-05-12 18:02:00 53 /min [facility] Body temperature 2022-05-12 18:02:00 36.61 C[facility] Respiratory rate 2022-05-12 18:02:00 16 /min [facility] Body height 2022-05-12 18:02:00 154.9 cm [facility] Body weight 2022-05-12 18:02:00 73.936 kg [facility] BMI 2022-05-12 18:02:00 30.80 kg/m2 [facility] Systolic blood pressure 2022-04-22 12:18:00 106 mm[Hg] [facility] Diastolic blood pressure 2022-04-22 12:18:00 55 mm[Hg] [facility] Heart rate 2022-04-22 12:18:00 53 /min [facility] Body temperature 2022-04-22 12:18:00 36.5 C[facility] Respiratory rate 2022-04-22 12:18:00 16 /min [facility] Oxygen saturation in Arterial blood by Pulse oximetry 2022-04-22 09:25:00 99 /min [facility] Body height 2022-04-20 08:51:00 154.9 cm [facility] Body weight 2022-04-20 08:51:00 87.272 kg [facility] BMI 2022-04-20 08:51:00 36.35 kg/m2 [facility] Systolic blood pressure 2022-04-14 15:06:00 106 mm[Hg] [facility] Diastolic blood pressure 2022-04-14 15:06:00 70 mm[Hg] [facility] Heart rate 2022-04-14 15:06:00 86 /min [facility] Body temperature 2022-04-14 15:06:00 36.78 Coret[facility] Respiratory rate 2022-04-14 15:06:00 18 /min [facility] Body height 2022-04-14 15:06:00 154.9 cm [facility] Body weight 2022-04-14 15:06:00 86.183 kg [facility] BMI 2022-04-14 15:06:00 35.90 kg/m2 [facility] Systolic blood pressure 2022-04-08 15:56:00 106 mm[Hg] [facility] Diastolic blood pressure 2022-04-08 15:56:00 68 mm[Hg] [facility] Heart rate 2022-04-08 15:56:00 65 /min [facility] Body temperature 2022-04-08 15:56:00 36.78 Coret[facility] Respiratory rate 2022-04-08 15:56:00 18 /min [facility] Body height 2022-04-08 15:56:00 154.9 cm [facility] Body weight 2022-04-08 15:56:00 84.369 kg [facility] BMI 2022-04-08 15:56:00 35.14 kg/m2 [facility] Systolic blood pressure 2022-04-01 16:10:00 122 mm[Hg] [facility] Diastolic blood pressure 2022-04-01 16:10:00 71 mm[Hg] [place] [facility] Heart rate 2022-04-01 16:10:00 78 /min [facility] Body temperature 2022-04-01 16:10:00 36.78 Coret[facility] Respiratory rate 2022-04-01 16:10:00 18 /min [facility] Body height 2022-04-01 16:10:00 154.9 cm [facility] Body weight 2022-04-01 16:10:00 84.278 kg [facility] BMI 2022-04-01 16:10:00 35.11 kg/m2 [facility] Procedures Procedure Date / Time Performed Performing Clinician Source RAPID STREP SCREEN FOR GROUP A 2024-06-03 02:57:00 Tristan Troncoso [facility] POCT TEST 2024-06-03 02:19:00 Shaun Troncoso [facility] URINALYSIS 2024-06-03 02:05:00 Tristan Troncoso [facility] ADC CLC OR LCC ONLY - WET PREP 2024-06-03 02:05:00 Tristan Troncoso [facility] POCT TEST 2023-05-23 19:07:00 Carolynn Esparza [facility] CT ABDOMEN PELVIS W CONTRAST 2023-05-15 04:14:11 Alyson Michel [facility] COMP. METABOLIC PANEL ([id number]) 2023-05-15 03:55:00 Alyson Michel [facility] CBC WITH DIFF 2023-05-15 03:55:00 Alyson Michel [facility] NOTICE OF PRIVACY PRACTICES 2023-05-15 03:39:09 Doctor Unassigned, [place] [facility] CONSENT/REFUSAL FOR DIAGNOSIS AND TREATMENT 2023-05-15 03:35:18 Doctor Unassigned, [place] [facility] CBC WITH DIFF 2023-05-14 10:11:00 Kalina Haro [facility] CBC WITH DIFF 2023-05-14 10:11[facility] 2023-05-14 10:11:00 Estrellita [facility] EMERGENCY SERVICES AGREEMENTS AND AUTHORIZATIONS 2023-05-14 05:01:00 Doctor Unassigned, [place] [facility] SURGICAL PATHOLOGY EXAM 2023-05-14 00:46:00 Rufino Hernandez [facility] LAPAROSCOPIC SALPINGECTOMY 2023-05-13 23:47:00 Patience Lyon [facility] INTRAUTERINE DEVICE REMOVAL 2023-05-13 23:47:00 Estrellita [facility] LAPAROSCOPIC SALPINGECTOMY 2023-05-13 23:47:00 Patience Lyon [facility] INTRAUTERINE DEVICE REMOVAL 2023-05-13 23:47:00 Estrellita [facility] HB ABO GROUPING 2023-05-13 22:52:00 Alyson Michel [facility] HB ABO GROUPING 2023-05-13 22:52:00 Alyson Michel [facility] HB ABO GROUPING 2023-05-13 22:52:00 Alyson Michel [facility] COMP. METABOLIC PANEL ([id number]) 2023-05-13 20:27:00 Alyson Michel [facility] TOTAL BETA HCG ASSAY 2023-05-13 20:27:00 Aidan Michel [facility] CBC WITH DIFF 2023-05-13 20:27:00 Alyson Michel [facility] COMP. METABOLIC PANEL ([id number]) 2023-05-13 20:27:00 Alyson Michel [facility] TOTAL BETA HCG ASSAY 2023-05-13 20:27:00 Aidan Michel [facility] CBC WITH DIFF 2023-05-13 20:27:00 Alyson Michel [facility] COMP. METABOLIC PANEL ([id number]) 2023-05-13 20:27:00 Alyson Michel [facility] TOTAL BETA HCG ASSAY 2023-05-13 20:27:00 Aidan Michel [facility] CBC WITH DIFF 2023-05-13 20:27:00 Alyson Michel [facility] CONSENT/REFUSAL FOR DIAGNOSIS AND TREATMENT 2023-05-13 19:34:56 Doctor Unassigned, [place] [facility] CONSENT/REFUSAL FOR DIAGNOSIS AND TREATMENT 2023-05-13 19:34:56 Doctor Unassigned, [place] [facility] CONSENT/REFUSAL FOR DIAGNOSIS AND TREATMENT 2023-05-13 19:34:56 Doctor Unassigned, [place] [facility] FIRST TRIMESTER LESS THAN 14 WEEKS WITH TRANSVAGINAL 2023-05-13 18:58:29 Carolynn Esparza [facility] HOSPITAL ADMISSION 2023-05-13 05:01:00 Doctor Un assigned, [place] [facility] FIRST TRIMESTER LESS THAN 14 WEEKS WITH TRANSVAGINAL 2023-05-10 22:00:00 Kenny Finley [facility] OB TRANSVAGINAL 2023-05-10 21:37:34 Carolynn Esparza [facility] COMP. METABOLIC PANEL ([id number]) 2023-05-10 21:24:00 Kenny Finley [facility] TOTAL BETA HCG ASSAY 2023-05-10 21:24:00 Kulwinder Finley [facility] CBC WITH DIFF 2023-05-10 21:24:00 Kenny Finley [facility] HB ABO GROUPING 2023-05-10 21:24:00 Kenny Finley [facility] CONSENT/REFUSAL FOR DIAGNOSIS AND TREATMENT 2023-05-10 20:57:33 Doctor Unassigned, [place] [facility] POCT TEST 2023-05-10 00:00:00 Carolynn Esparza [facility] POCT URINALYSIS W/O SPECIFIC GRAVITY 2023-05-10 00:00:00 Carolynn Esparza [facility] LAPAROSCOPIC CHOLECYSTECTOMY 2023-03-01 13:45:00 Mily Delgadillo [facility] POCT TEST 2023-03-01 13:30:00 Eduard Delgadillo [facility] POCT TEST 2023-03-01 13:30:00 Eduard Delgadillo [facility] DAY SURGERY - ADC 2023-03-01 05:01:00 Doctor Enedina ssigned, [place] [facility] DISCLOSURE AND CONSENT, MEDICAL AND SURGICAL PROCEDURES 2023-02-03 05:01:00 Doctor Unassigned, [place] [facility] DISCLOSURE AND CONSENT, MEDICAL AND SURGICAL PROCEDURES 2023-02-03 05:01:00 Doctor Unassigned, [place] [facility] US ABDOMEN LIMITED 2023-01-25 20:54:06 Marley Valencia [facility] HSV 1&2, VZV NAAT 2023-01-15 00:53:00 Brianne Britton [facility] CONSENT/REFUSAL FOR DIAGNOSIS AND TREATMENT 2022-11-12 15:24:48 Doctor Unassigned, [place] [facility] POCT TEST 2022-11-12 00:00:00 Marley Valencia [facility] PATIENT FINANCIAL POLICY 2022-09-17 16:34:46 Doctor Unassigned, [place] [facility] POCT TEST 2022-06-09 15:12:00 Carolynn Esparza [facility] SENIOR BUSINESS DEVELOPMENT ANALYST CLINIC ULTRASOUND 2022-06-09 06:01:00 Doc tor Unassigned, [place] [facility] CBC WITH DIFF 2022-04-21 09:07:00 Carolynn Esparza [facility] CENTRAL NEURAXIAL BLOCK 2022-04-20 14:22:48 Karen Yu [facility] HB ABO GROUPING 2022-04-20 09:20:00 Carolynn Esparza [facility] RHO (D) IMMUNE GLOBULIN 2022-04-20 09:20:00 Carolynn Esparza [facility] CONSENT/REFUSAL FOR DIAGNOSIS AND TREATMENT 2022-04-19 13:13:18 Doctor Unassigned, [place] [facility] ASSIGNMENT OF BENEFITS 2022-04-19 13:12:53 Docto r Unassigned, [place] [facility] POCT URINALYSIS W/O SPECIFIC GRAVITY 2022-04-14 00:00:00 Carolynn Esparza [facility] POCT URINALYSIS W/O SPECIFIC GRAVITY 2022-04-08 00:00:00 Tulioamilcar Brianne [facility] >14 WEEKS US LIMITED 2022-04-01 17:17:35 Carolynn Esparza [facility] DSU PRE-OP 2022-04-01 05:01:00 Doctor Unass igned, [place] [facility] POCT URINALYSIS W/O SPECIFIC GRAVITY 2022-04-01 00:00:00 Carolynn Esparza [facility] Encounters Start Date/Time End Date/Time Encounter Type Admission Type Attending [facility] Care Department Encounter ID Source 2022-01-29 21:39:50 Outpatient X [facility] TEENA [id number] [facility] 2021-05-18 22:00:59 Emergency [facility] [id number] [facility] 2021-05-16 09:26:29 Emergency [facility] [id number] [facility] 2024-06-02 19:20:00 2024-06-02 22:15:00 Emergency X TRISTAN TRONCOSO PHILLIP [facility] ERT [id number] [facility] 2024-06-02 19:20:00 2024-06-02 22:15:00 Emergency Tristan Troncoso [facility] 1..840.114 350.1.13.10 4.2.7.2.686 [id number] [facility] 2024-05-02 00:00:00 2024-06-02 18:19:25 Patient Secure Msg Doctor Unassigned, [place] Doctor Unassigned, [place] [facility] 1..840.114 350.1.13.10 4.2.7.2.686 [id number] 134 [id number] [facility] 2024-04-02 11:30:00 2024-04-02 11:30:00 Outpatient R DONALD MCGRATH [facility] [id number] [facility] 2023-12-15 13:30:00 2023-12-15 13:30:00 Outpatient R CAROLYNN ESPARZA [facility] [id number] [facility] 2023-10-28 13:00:00 2023-10-28 13:00:00 Outpatient R DONALD MCGRATH [facility] [id number] [facility] 2023-09-23 10:00:00 2023-09-23 10:00:00 Outpatient R NEMO PRADO CHERYAL [facility] [id number] [facility] 2023-09-08 10:00:00 2023-09-08 10:00:00 Outpatient R CAROLYNN ESPARZA [facility] [id number] [facility] 2023-09-05 00:00:00 2023-09-05 00:00:00 Patient Secure M[facility] 1.2.840.114 350.1.13.10 4.2.7.2.686 [id number] 134 [id number] [facility] 2023-06-11 00:00:00 2023-06-11 00:00:00 Patient [facility] 1.2.840.114 350.1.13.10 4.2.7.2.686 [id number] 134 [id number] [facility] 2023-05-23 13:30:00 2023-05-23 13:45:00 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 2, Adc Lab [facility] 1.2.840.114 350.1.13.10 4.2.7.2.686 [id number] [facility] 2023-05-23 13:00:00 2023-05-23 13:16:39 Outpatient R MAMADOU ESPARZAEN [facility] [id number] [facility] 2023-05-23 13:00:00 2023-05-23 13:16:39 Routine Visit Hussein, Carolynn Cam [facility] BUILD[facility] 1.2840.114 350.1.13.10 4.2.7.2.686 [id number] 134 [id number] [facility] 2023-05-14 22:43:00 2023-05-15 00:39:00 Emergency X ALYSON MICHEL [facility] ERT [id number] [facility] 2023-05-14 22:43:00 2023-05-15 00:39:00 Emergency Alyson Michel [facility] 1.2840.114 350.1.13.10 4.2.7.2.686 [id number] [facility] 2023-05-13 14:52:00 2023-05-14 09:30:00 Outpatient X GARCIA-RACIEL S, KALINA GARCIA-RACIEL S, KALINA [facility] TEENA [id number] [facility] 2023-05-13 14:52:00 2023-05-14 09:30:00 Emergency Alyson Michel Alva-Raciel s, [facility] 1.2840.114 350.1.13.10 4.2.7.2.686 [id number] [facility] 2023-05-13 19:00:00 2023-05-13 20:59:00 Surgery Alva-Raciel s, Kalina [facility] 1.2840.114 350.1.13.10 4.2.7.2.686 [id number] [facility] 2023-05-13 13:19:24 2023-05-13 14:51:00 Outpatient R CAROLYNN ESPARZA [facility] [id number] [facility] 2023-05-13 13:00:00 2023-05-13 14:51:00 Hospital Encounter Carolynn Esparza [facility] 1.2840.114 350.1.13.10 4.2.7.2.686 [id number] [facility] 2023-05-12 13:15:00 2023-05-12 13:30:00 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 2, Adc Lab Carolynn Esparza [facility] BUILDING 1.2.840.114 350.1.13.10 4.2.7.2.686 [id number] [facility] 2023-05-12 13:15:00 2023-05-12 13:26:14 Outpatient R CAROLYNN ESPARZA [facility] [id number] [facility] 2023-05-12 00:00:00 2023-05-12 00:00:00 Telephone Carolynn Esparza [facility] BUILDING 1.2.840.114 350.1.13.10 4.2.7.2.686 [id number] 134 [id number] [facility] 2023-05-12 00:00:00 2023-05-12 00:00:00 Case Management Carolynn Esparza [facility] BUILDING 1.2.840.114 350.1.13.10 4.2.7.2.686 [id number] 134 [id number] [facility] 2023-05-12 00:00:00 2023-05-12 00:00:00 Telephone Carolynn Esparza [facility] BUILDING 1.2.840.114 350.1.13.10 4.2.7.2.686 [id number] 134 [id number] [facility] 2023-05-12 00:00:00 2023-05-12 00:00:00 Patient Secure Msg Doctor Unassigned, [place] [facility] BU[facility] 1.2.840.114 350.1.13.10 4.2.7.2.686 [id number] 134 [id number] [facility] 2023-05-10 16:05:00 2023-05-10 19:18:00 Emergency X KENNY FINLEY [facility] ERT [id number] [facility] 2023-05-10 16:05:00 2023-05-10 19:18:00 Emergency Kenny Finley [facility] 1.2.840.114 350.1.13.10 4.2.7.2.686 [id number] [facility] 2023-05-10 15:30:00 2023-05-10 16:25:07 Outpatient R CAROLYNN ESPARZA [facility] [id number] [facility] 2023-05-10 15:30:00 2023-05-10 16:25:07 Office Visit Carolynn Esparza [facility] 1..840.114 350.1.13.10 4.2.7.2.686 [id number] 134 [id number] [facility] 2023-03-28 08:30:00 2023-03-28 08:30:00 Outpatient R MILY DELGADILLO [facility] [id number] [facility] 2023-03-25 00:00:00 2023-03-25 00:00:00 Patient Secure Msg Doctor Unassigned, [place] [facility] 1..840.114 350.1.13.10 4.2.7.2.686 [id number] 134 [id number] [facility] 2023-03-15 13:30:00 2023-03-15 13:30:00 Office Visit Razia Pitts Laurel [facility] BUILDING ..840.114 350.1.13.10 4.2.7.2.686 [id number] [facility] 2023-03-15 13:30:00 2023-03-15 13:29:16 Outpatient R MILY DELGADILLO [facility] [id number] [facility] 2023-03-13 00:00:00 2023-03-13 00:00:00 [facility] 1.2.840.114 350.1.13.10 4.2.7.2.686 [id number] 134 [id number] [facility] 2023-03-04 18:00:00 2023-03-04 18:20:00 [facility] 1.2840.114 350.1.13.10 4.2.7.2.686 [id number] [facility] 2023-03-04 18:00:00 2023-03-04 18:00:00 Outpatient R TOBI [facility] [id number] [facility] 2023-03-04 00:00:00 2023-03-04 00:00:00 Patient Secure Msg Britton [facility] 1.2.840.114 350.1.13.10 4.2.7.2.686 [id number] 134 [id number] [facility] 2023-03-01 09:20:00 2023-03-01 12:29:00 Surgery Elie [facility] [place] 1.2.840.114 350.1.13.10 4.2.7.2.686 [id number] [facility] 2023-03-01 08:24:00 2023-03-01 11:55:00 Outpatient R MILY DELGADILLO [facility] K[facility] [id number] [facility] 2023-03-01 08:24:00 2023-03-01 11:55:00 [facility] [place] [place] 1.2840.114 350.1.13.10 4.2.7.2.686 [id number] [id number] [facility] 2023-02-21 00:00:00 2023-02-21 00:00:00 Patient Secure Msg Mily Delgadillo [facility] BUILDING 1.2.840.114 350.1.13.10 4.2.7.2.686 [id number] [facility] 2023-02-18 00:00:00 2023-02-18 00:00:00 Patient Secure Msg Tobi [facility] BUILDING 1.2.840.114 350.1.13.10 4.2.7.2.686 [id number] 134 [id number] [facility] 2023-02-17 00:00:00 2023-02-17 00:00:00 Patient Secure Msg Tobi [facility] BUILDING 1..840.114 350.1.13.10 4.2.7.2.686 [id number] 134 [id number] [facility] 2023-02-03 08:30:00 2023-02-03 10:56:39 Outpatient R MILY DELGADILLO [facility] [id number] [facility] 2023-02-03 08:30:00 2023-02-03 10:56:39 Office Visit Mily Delgadillo [facility] BUILDING 1.2.840.114 350.1.13.10 4.2.7.2.686 [id number] [facility] 2023-01-29 00:00:00 2023-01-29 00:00:00 Telephone Marley Valencia PEND[facility] S[facility] TO [facility] 1.2.840.114 350.1.13.10 4.2.7.2.686 [id number] [id number] [facility] 2023-01-26 00:00:00 2023-01-26 00:00:00 Patient Secure Msg Tulioaphan, [facility] 1.2.840.114 350.1.13.10 4.2.7.2.686 [id number] 134 [id number] [facility] 2023-01-26 00:00:00 2023-01-26 00:00:00 Telephone Marley Valencia PENDING S[facility] TO [facility] 1.2840.114 350.1.13.10 4.2.7.2.686 [id number] 044 [id number] [facility] 2023-01-25 15:19:29 2023-01-25 23:59:00 Outpatient R SANDRA VALENCIALIE [facility] [id number] [facility] 2023-01-25 15:19:29 2023-01-25 23:59:00 Hospital Encounter Marley Valencia [facility] 1.2.840.114 350.1.13.10 4.2.7.2.686 [id number] [facility] 2023-01-15 00:00:00 2023-01-15 00:00:00 Patient Secure Brianne Duff [facility] BUILDING 1.2.840.114 350.1.13.10 4.2.7.2.686 [id number] 134 [id number] [facility] 2023-01-14 19:20:00 2023-01-14 20:53:05 Outpatient R BRIANNE BRITTON [facility] [id number] [facility] 2023-01-14 19:20:00 2023-01-14 20:53:05 Urgent Care Brianne Britton Unknown, Attending [facility] 1.2.840.114 350.1.13.10 4.2.7.2.686 [id number] 370 [id number] [facility] 2023-01-12 00:00:00 2023-01-12 00:00:00 Patient Secure Msg Brianne Britton [facility] NAL BUILDING 1.2.840.114 350.1.13.10 4.2.7.2.686 [id number] 134 [id number] [facility] 2023-01-03 00:00:00 2023-01-03 00:00:00 Refill Marley Valencia PEND[facility] S[facility] TO [facility] BU[facility] 1.2.840.114 350.1.13.10 4.2.7.2.686 [id number] 044 [id number] [facility] 2023-01-02 00:00:00 2023-01-02 00:00:00 Patient Secure Msg Marley Valencia PENDING S[facility] 1..840.114 350.1.13.10 4.2.7.2.686 [id number] 044 [id number] [facility] 2022-12-30 00:00:00 2022-12-30 00:00:00 Case Management Tobi Replaced by [facility] 1.2.840.114 350.1.13.10 4.2.7.2.686 [id number] [facility] 2022-12-29 15:15:00 2022-12-29 15:20:41 Outpatient R TOBI [facility] [id number] [facility] 2022-12-29 15:15:00 2022-12-29 15:20:41 Office Visit Brianne Britton [facility] BUILDING 1.2.840.114 350.1.13.10 4.2.7.2.686 [id number] 134 [id number] [facility] 2022-12-10 00:00:00 2022-12-10 00:00:00 Outpatient R DEE DEEMARLEY [facility] [id number] [facility] 2022-11-24 00:00:00 2022-11-24 00:00:00 Telephone Marley Valencia [facility]?JACEK [facility] OFF[facility] BUILDING 1.2.840.114 350.1.13.10 4.2.7.2.686 [id number] [id number] [facility] 2022-11-12 10:30:00 2022-11-12 11:14:36 Outpatient R MARLEY VALENCIA [facility] [id number] [facility] 2022-11-12 10:30:00 2022-11-12 11:14:36 Office Visit Marley Valencia [facility]?JACEK [facility] MED[facility] OFFICE BUILDING 1..840.114 350.1.13.10 4.2.7.2.686 [id number] [id number] [facility] 2022-11-12 00:00:00 2022-11-12 00:00:00 Orders Only Doctor Unassigned, [place] 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, Adc Lab Nemo Prado [facility] NAL BUILDING 1..840.114 350.1.13.10 4.2.7.2.686 [id number] [facility] 2022-11-04 09:30:00 2022-11-04 09:30:00 Outpatient R NEMO PRADO CHERYAL [facility] [id number] [facility] 2022-11-02 10:30:00 2022-11-02 10:30:00 Outpatient R [facility] [id number] [facility] 2022-10-14 11:00:00 2022-10-14 11:00:00 Outpatient R [facility] [id number] [facility] 2022-09-20 09:15:00 2022-09-20 09:15:00 Outpatient R NEMO PRADO CHERYAL [facility] [id number] [facility] 2022-09-17 10:30:00 2022-09-17 11:21:57 Outpatient R MARKNEMO BHARDWAJ [facility] [id number] [facility] 2022-09-17 10:30:00 2022-09-17 11:21:57 Office Visit Theodore Nemo [facility] 1.2.840.114 350.1.13.10 4.2.7.2.686 [id number] 134 [id number] [facility] 2022-09-17 00:00:00 2022-09-17 00:00:00 Orders Only Doctor Unassigned, [place] [facility] 1.2.840.114 350.1.13.10 4.2.7.2.686 [id number] [facility] 2022-09-10 00:00:00 2022-09-10 00:00:00 Pre Visit Outreach Nell Chen 1.2.840.114 350.1.13.10 4.2.7.2.686 [id number] [facility] 2022-07-15 10:30:00 2022-07-15 10:30:00 Outpatient R BRAINNE BRITTON [facility] [id number] [facility] 2022-07-07 10:45:00 2022-07-07 11:19:46 Outpatient R CAROLYNN ESPARZA [facility] [id number] [facility] 2022-07-07 10:45:00 2022-07-07 11:19:46 Office Visit Carolynn Esparza [place] [address]..114 350.1.13.10 4.2.7.2.686 [id number] 134 [id number] [facility] 2022-06-09 09:00:00 2022-06-09 10:13:16 Outpatient R CAROLYNN ESPARZA [facility] [id number] [facility] 2022-06-09 09:00:00 2022-06-09 10:13:16 Office Visit Carolynn Esparza [facility] BUILDING 1..114 350.1.13.10 4.2.7.2.686 [id number] 134 [id number] [facility] 2022-06-09 00:00:00 2022-06-09 00:00:00 Orders Only Doctor Unassigned, [place] [facility] 1.114 350.1.13.10 4.2.7.2.686 [id number] [facility] 2022-05-12 13:00:00 2022-05-12 13:20:00 Outpatient R CAROLYNN ESPARZA [facility] [id number] [facility] 2022-05-12 13:00:00 2022-05-12 13:20:00 Routine Visit Carolynn Esparza [facility] 1..114 350.1.13.10 4.2.7.2.686 [id number] 134 [id number] [facility] 2022-04-20 03:41:00 2022-04-22 09:40:00 Hospital Encounter Carolynn Esparza [facility] 1..114 350.1.13.10 4.2.7.2.686 [id number] [id number] [facility] 2022-04-20 08:56:00 2022-04-20 18:22:00 Anesthesia Event Livan Yu Jeffrey S [facility] 1.2.840.114 350.1.13.10 4.2.7.2.686 [id number] [id number] [facility] 2022-04-20 08:47:11 2022-04-20 08:47:11 Anesthesia Event Livan Yu [facility] 1.2.840.114 350.1.13.10 4.2.7.2.686 [id number] [facility] 2022-04-19 08:30:00 2022-04-19 08:45:00 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 Pob, Adc Lab Main Carolynn Esparza [facility] PROFESSIO NAL BUILDING 1.2.840.114 350.1.13.10 4.2.7.2.686 [id number] [facility] 2022-04-19 08:00:00 2022-04-19 08:15:00 Laboratory Only Only, Adc Test Carolynn Esparza [facility] 1.2.840.114 350.1.13.10 4.2.7.2.686 [id number] [facility] 2022-04-19 08:00:00 2022-04-19 08:00:00 [facility] [id number] [facility] 2022-04-19 08:00:00 2022-04-19 08:00:00 Outpatient R CAROLYNN ESPARZA [facility] TEENA [id number] [facility] 2022-04-14 10:00:00 2022-04-14 10:15:00 [facility]ine [facility] 1.2840.114 350.1.13.10 4.2.7.2.686 [id number] 134 [id number] [facility] 2022-04-14 10:00:00 2022-04-14 10:00:00 [facility] [id number] [facility] 2022-04-09 10:00:00 2022-04-09 10:15:00 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 2, Adc Lab Carolynn Esparza [facility] PROFESSIO NAL BUILDING 1.2.840.114 350.1.13.10 4.2.7.2.686 [id number] [facility] 2022-04-09 10:00:00 2022-04-09 10:00:00 Outpatient R CAROLYNN ESPARZA [facility] [id number] [facility] 2022-04-08 10:30:00 2022-04-08 11:20:01 Outpatient R BRIANNE BRITTON [facility] [id number] [facility] 2022-04-08 10:30:00 2022-04-08 11:20:01 Routine Visit Brianne Britton [facility] BUILDING 1.2.840.114 350.1.13.10 4.2.7.2.686 [id number] 134 [id number] [facility] 2022-04-08 11:15:00 2022-04-08 11:15:00 [facility] [id number] [facility] 2022-04-01 11:00:00 2022-04-01 11:54:28 Outpatient R CAROLYNN ESPARZA [facility] [id number] [facility] 2022-04-01 11:00:00 2022-04-01 11:54:28 Routine Visit Carolynn Esparza [facility] BUILDING 1.2.840.114 350.1.13.10 4.2.7.2.686 [id number] 134 [id number] [facility] 2022-04-01 11:00:00 2022-04-01 11:54:28 Outpatient R CAROLYNN ESPARZA [facility] [id number] [facility] 2022-04-01 00:00:00 2022-04-01 00:00:00 Orders Only Doctor Unassigned, [place] [facility] 1.0.114 350.1.13.10 4.2.7.2.686 [id number] [facility] 2022-03-25 12:00:00 2022-03-25 12:52:58 Outpatient R GIDEON ROME [facility] [id number] [facility] 2022-03-25 12:00:00 2022-03-25 12:52:58 Urgent Care Gideon Rome KatesherrieJerome [facility] 1..114 350.1.13.10 4.2.7.2.686 [id number] [facility] 2022-03-25 11:00:00 2022-03-25 11:32:10 Routine Visit Brianne Britton [facility] BUILDING 1..114 350.1.13.10 4.2.7.2.686 [id number] 134 [id number] [facility] 2022-03-11 11:15:00 2022-03-11 12:07:16 Routine Visit Mamadou Esparzaen Naga [facility] BUILDING 1..114 350.1.13.10 4.2.7.2.686 [id number] 134 [id number] [facility] 2022-03-11 11:15:00 2022-03-11 12:07:16 Outpatient R CAROLYNN ESPARZA [facility] [id number] [facility] 2022-03-09 13:30:00 2022-03-09 14:15:00 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 2, [facility] Us Room Lesly Elliott [facility] 1..114 350.1.13.10 4.2.7.2.686 [id number] [facility] 2022-03-09 13:30:00 2022-03-09 13:30:00 Outpatient P LESLY ELLIOTT [facility] [id number] [facility] 2022-03-01 08:45:00 2022-03-01 08:45:00 Outpatient P [facility] [id number] [facility] 2022-02-24 00:00:00 2022-02-24 00:00:00 Telephone Carolynn Esparza [facility] 1.2.840.114 350.1.13.10 4.2.7.2.686 [id number] 134 [id number] [facility] 2022-02-23 16:15:00 2022-02-23 16:46:49 Outpatient R TOBI BRIANNE [facility] [id number] [facility] 2022-02-23 16:15:00 2022-02-23 16:46:49 Routine Visit Tobi Brianne [facility] 1.2.840.114 350.1.13.10 4.2.7.2.686 [id number] 134 [id number] [facility] 2022-02-23 00:00:00 2022-02-23 00:00:00 Orders Only Doctor Unassigned, [place] [facility] 1.2.840.114 350.1.13.10 4.2.7.2.686 [id number] [facility] 2022-02-16 16:00:00 2022-02-16 16:00:00 Outpatient R BRIANNE BRITTON [facility] [id number] [facility] 2022-02-08 00:00:00 2022-02-08 00:00:00 Telephone Tobi Brianne [facility] 1.2.840.114 350.1.13.10 4.2.7.2.686 [id number] 134 [id number] [facility] 2022-02-05 08:45:00 2022-02-05 09:00:00 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 2, [facility] Brianne Britton [facility] 1.2.840.114 350.1.13.10 4.2.7.2.686 [id number] [facility] 2022-02-05 08:45:00 2022-02-05 08:45:00 Outpatient R BRIANNE BRITTON [facility] [id number] [facility] 2022-02-02 14:00:00 2022-02-02 14:32:25 Outpatient R CAROLYNN ESPARZA [facility] [id number] [facility] 2022-02-02 14:00:00 2022-02-02 14:32:25 Routine Visit Carolynn Esparza [facility] 1.2.840.114 350.1.13.10 4.2.7.2.686 [id number] 134 [id number] [facility] 2022-02-02 09:30:00 2022-02-02 09:30:00 Outpatient R CAROLYNN ESPARZA [facility] [id number] [facility] 2022-01-29 12:58:00 2022-01-29 21:22:00 Outpatient X CAROLYNN ESPARZA [facility] [id number] [facility] 2022-01-29 12:58:00 2022-01-29 21:22:00 Emergency Fish, Cassy Carolynn Esparza [facility] 1.2840.114 350.1.13.10 4.2.7.2.686 [id number] [facility] 2022-01-21 00:00:00 2022-01-21 00:00:00 Telephone Brianne Britton [facility] 1.2.840.114 350.1.13.10 4.2.7.2.686 [id number] 134 [id number] [facility] 2022-01-07 00:00:00 2022-01-07 00:00:00 Case Management Brianne Britton [facility] 1.2.840.114 350.1.13.10 4.2.7.2.686 [id number] 134 [id number] [facility] 2022-01-05 11:00:00 2022-01-05 11:37:38 Routine Visit Brianne Britton [facility] 1.2.840.114 350.1.13.10 4.2.7.2.686 [id number] 134 [id number] [facility] 2022-01-05 11:00:00 2022-01-05 11:37:38 Outpatient R TOBI [facility] [id number] [facility] 2022-01-05 11:00:00 2022-01-05 11:00:00 Outpatient Phani BRITTON [facility] [id number] [facility] 2021-12-29 00:00:00 2021-12-29 00:00:00 Telephone Carolynn Esparza [facility] 1.2.840.114 350.1.13.10 4.2.7.2.686 [id number] [facility] 2021-12-23 10:30:00 2021-12-23 11:30:00 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 Ultrasound, Salvatore-Kevyn Woodall [facility] SENIOR BUSINESS DEVELOP[facility] 1.2.840.114 350.1.13.10 4.2.7.2.686 [id number] [facility] 2021-12-23 10:30:00 2021-12-23 10:30:00 Outpatient GIO JENKINS [facility] [id number] [facility] 2021-12-08 13:00:00 2021-12-08 13:32:10 Outpatient R CAROLYNN ESPARZA [facility] [id number] [facility] 2021-12-08 13:00:00 2021-12-08 13:32:10 Routine Visit Carolynn Esparza [facility] 1..840.114 350.1.13.10 4.2.7.2.686 [id number] 134 [id number] [facility] 2021-12-08 13:00:00 2021-12-08 13:00:00 Outpatient R CAROLYNN ESPARZA [facility] [id number] [facility] 2021-11-10 13:00:00 2021-11-10 13:15:00 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 2, Adc Lab Brianne Britton [facility] 1..840.114 350.1.13.10 4.2.7.2.686 [id number] [facility] 2021-11-10 13:00:00 2021-11-10 13:00:00 Outpatient R QUINBRIANNE COFFEY [facility] [id number] [facility] 2021-11-10 11:15:00 2021-11-10 11:34:32 Routine Visit Brianne Britton [facility] 1..840.114 350.1.13.10 4.2.7.2.686 [id number] [facility] 2021-11-10 11:15:00 2021-11-10 11:34:32 Outpatient R TOBIBRIANNE [facility] [id number] [facility] 2021-11-10 11:15:00 2021-11-10 11:15:00 [facility] [id number] [facility] 2021-11-04 00:00:00 2021-11-04 00:00:00 Orders Only Doctor Unassigned, [place] [facility] 1..840.114 350.1.13.10 4.2.7.2.686 [id number] [facility] 2021-10-22 00:00:00 2021-10-22 00:00:00 [facility] 1.2.840.114 350.1.13.10 4.2.7.2.686 [id number] [facility] 2021-10-20 00:00:00 2021-10-20 00:00:00 Telephone Carolynn Esparza [facility] 1.2.840.114 350.1.13.10 4.2.7.2.686 [id number] [facility] 2021-10-16 00:00:00 2021-10-16 00:00:00 Telephone Carolynn Esparza [facility] 1.2.840.114 350.1.13.10 4.2.7.2.686 [id number] [facility] 2021-10-16 00:00:00 2021-10-16 00:00:00 Telephone Carolynn Esparza [facility] 1.2.840.114 350.1.13.10 4.2.7.2.686 [id number] [facility] 2021-10-15 09:45:00 2021-10-15 10:00:00 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 2, Adc Lab Carolynn Esparza [facility] 1.2.840.114 350.1.13.10 4.2.7.2.686 [id number] [facility] 2021-10-15 09:45:00 2021-10-15 09:45:00 Outpatient R [facility] [id number] [facility] 2021-10-15 09:45:00 2021-10-15 09:45:00 Outpatient R CAROLYNN ESPARZA [facility] [id number] [facility] 2021-10-15 00:00:00 2021-10-15 00:00:00 Case Management [facility] 1.0.114 350.1.13.10 4.2.7.2.686 [id number] [facility] 2021-10-15 00:00:00 2021-10-15 00:00:00 Orders Only Doctor Unassigned, [place] [facility] 1.0.114 350.1.13.10 4.2.7.2.686 [id number] [facility] 2021-10-14 14:00:00 2021-10-14 15:15:08 Outpatient CAROLYNN WILSON [facility] [id number] [facility] 2021-10-14 14:00:00 2021-10-14 15:15:08 Initial Visit Carolynn Esparza [facility] 1.0.114 350.1.13.10 4.2.7.2.686 [id number] [facility] 2021-10-14 14:00:00 2021-10-14 15:15:08 Outpatient CAROLYNN WILSON [facility] [id number] [facility] 2021-10-14 00:00:00 2021-10-14 00:00:00 Orders Only Doctor Unassigned, [place] [facility] 1.20.114 350.1.13.10 4.2.7.2.686 [id number] [facility] 2021-03-28 14:12:00 2021-03-28 16:13:00 Emergency Avis Banuelos [facility] 1.2840.114 350.1.13.10 4.2.7.2.686 [id number] [facility] 2020-08-20 14:30:00 2020-08-20 14:30:00 Outpatient Phani BRITTON BRIANNE [facility] [id number] [facility] 2020-07-31 13:00:00 2020-07-31 13:00:00 [facility]patient [facility] [id number] [facility] 2020-06-21 11:46:00 2020-06-21 13:39:00 Emergency Pato Nealdilip F [facility] 1.114 350.1.13.10 4.2.7.2.686 [id number] [facility] 2020-06-21 00:00:00 2020-06-21 00:00:00 Orders Only Doctor Unassigned, [place] [facility] 1.114 350.1.13.10 4.2.7.2.686 [id number] [facility] 2020-05-28 13:30:00 2020-05-28 13:30:00 Outpatient Phani BRITTON [facility] [id number] [facility] 2020-05-01 09:30:00 2020-05-01 09:30:00 Outpatient CAROLYNN WILSON [facility] [id number] [facility] 2020-04-30 08:30:00 2020-04-30 08:30:00 [facility] [id number] [facility] 2020-04-28 15:15:00 2020-04-28 15:15:00 Outpatient CAROLYNN WILSON [facility] [id number] [facility] 2019-03-06 13:43:15 2019-03-06 14:49:14 Office Visit Marley Valencia [facility] 1..114 350.1.13.10 4.2.7.2.686 [id number] [facility] 2019-03-05 00:00:00 2019-03-05 00:00:00 Case Management Brianne Britton [facility] 1.2.840.114 350.1.13.10 4.2.7.2.686 [id number] [facility] 2019-03-05 00:00:00 2019-03-05 00:00:00 Telephone Carolynn Esparza [facility] 1.2.840.114 350.1.13.10 4.2.7.2.686 [id number] [facility] 2019-03-01 08:58:15 2019-03-01 09:51:29 Office Visit Brianne Britton [facility] 1.2.840.114 350.1.13.10 4.2.7.2.686 [id number] 134 [id number] [facility] Results Test Description Test Time Test Comments Results Result Co mments Source [facility]22:33* Test Item Value Reference Range Interpretation Comme nts APPEARANCE (test code = 4262245010) Slightly Cloudy Clear A COLOR (test code = 6252552574) Julieta Yellow A PH (test code = 5373774370) 5.0 4.8-8.0 SP GRAVITY (test code = 1828591862) 1.028 1.003-1.030 GLU U QUAL (test code = 0985211904) Normal Normal BLOOD (test code = 3708919837) 1+ Negative A KETONES (test code = 6585132254) 5 mg/dL Negative A PROTEIN (test code = 2887-8) 30 mg/dL Negative A UROBILIN (test code = 4455688986) Normal Normal BILIRUBIN (test code = 2654497130) Negative Negative NITRITE (test code = 3140232651) Negative Negative LEUK ZIADA (test code = 2739532772) Negative Negative RBC/HPF (test code = 8472800909) 5 0-3 H WBC/HPF (test code = 3906841462) 3 0-5 BACTERIA (test code = 4034768429) Negative Negative MUCOUS (test code = 8020546262) Marked Negative LPF A SQ EPITH (test code = 4756670441) 5 HPF Lab Interpretation (test cod e = 01218-2) Abnormal [facility] [id number] 02:19:00* Test Item Value Reference Range Interpretation Comme nts POCT PREG (test code = 1605) Negative On board controls acceptable with C Line (test code = 3574) Yes Lab Interpretation (test cod e = 06359-0) Normal [facility] [id number] 19:07:00* Test Item Value Reference Range Interpretation Comme nts POCT PREG (test code = 1605) Negative On board controls acceptable with C Line (test code = 3574) Yes POCT PREG LOT # (test code = 3575) POCT PREG TEST DATE (test code = 3576) ENE (test code = ENE) accurate developme nt and interpretation of all internal controls Lab Interpretation (test code = 40559-1) [facility] [id number] 17:09:45* Test Item Value Reference Range Interpretation Comme nts Case Report (test code = 4511820793) Surgical Pathology ?Case: [id number] ? Authorizing Provider: ?Kalina Haro MD ?Collected: ? 05/13/2023 1946 ?Ordering Location: ? ? [facility] ? ? ?Received: ?05/13/20232151 ? [facility] ?Pathologist: ? Tatiana Rodriguez, ? MD ? Specimens: ? A) - FALLOPIAN TUBE, LEFT ? B) - UTERUS, INTRAUTERINE DEVICE REMOVAL ? Final Diagnosis (test code = 9878149181) e0owrBIxMJKxg2gnMYQfjIZf ZzEwMzNcZnRuYmpcdWMxIHtc cnRmMVxhbnNpXGRlZmxhbmcx TEPzCRK3mpMwTVAjGCQ9ZGO6 EjZcDAOqXbGiNBBeGEFfr5ln q7BxvPWfnEFdJWibfPWkhoKq px90mKN0tL74PP6oJDTeTfD0 TFFafiG4Noo6VLZqTSKbbLHs E691r6eyv4zkweXcxUP6dPjk AGNugiewMyI4YKkuWJEgnnyy BBt8QLsnCDYyjDD2TXCgqSEm E3VrHEBaRR8vxxe0YEB8KZhp JWCmFtC3QIVjsWNqHIHbwIar MJwce933JMA9FvRmSSDtuuFm nIqfvB7rJqYzQBbjOTAyTJ0j GmENQF5FLROZPWRGWiTgRM0Z MXHNGX0RDIFvHYALT03PWlPB JFWORSROUSKYSFvGCQ8MTGDT Q62LFfjoZWBoQLXjRJDaQZQA TExPUElBTiBUVUJFIFdJVEgg Z9sHIktSCnyEVXKRAPhYFTMA LmMsQlhWU2AaJ1xXNROcGXXR YiVBR5YLAwRbF8vLAMQBU2KJ YAtMZBMNIPjABC5ODGoxKFIm nDLrHGGoTLFDMQZPHrthXY8Y DwZBHTDFTL8WDELCHrrFEHZY NX7FVaTJXqExiGIzBMClWCCg GGSNNb9CNkGAZfjFJPkUWBYb Y3EGT3HoWZSUF3YBEFNLB21o XHBhclxwYXIgUmFzaGEgQWxm FYR2DMobCL2ZF1hGEXJxwYNy GLHuuw49AQY9ZbQuj2F2ZVYf RbWcOVUqRZ9nwLcyZEXkDM9g DFPdB9chzG9oemc3DhWxJMQo IfU6BVIcxyU5Kpv6ELYgSNov n7wgd1DzY5OecQZcrLv4x4rp VBWuYlB2jZNgRBrvK7nkktLc dJUsBHWfADw9oJzwCiFrOFPh i1uzslPqFtImHUGbYOLtZJXr mByklal6wX54LHYrnT5jeECj WDcfmxVtCxF5JJkzULIiHuR5 BFSdzAWcGWYyG7daBZVbAZbw IPIfWGwmlQYhEKP4vAnrx8B4 bGVzaGVldHtcZjBcZnMyOCBO a2KyIJf2dJpdO5IeTOYuHaI7 bHQgUGFyYWdyYXBoIEZvbnQ7 uM56RPbozrY3uEVcj4Glv28d o805iI7phFOqOFT8XEBzHMTu tNDzDEMeOWZ3KADzrLPzB7jx ABFjCC7zmehqANvmBRxwTHNz cDX3QSWrpFEhE5PdZSDbABko POIrifr0VeGiJs0xtEMmaThp ZJwgg0bhp5tioAJtUnh3IGNo QxScMraxBZggn6Hcb7wmQKDx pz8tGPK3oEVvmLbhf3Y1jQRs HJJmiNUzuaVdFETiSbW3HKez LB5ppz01HMFoWQC8hq8muZUg sMqpboFjhLMyLTqwF8NwMCAe z559KUSqU9JsIMSlp2M6eiHc ElAeEJGlsKP3kdB4PNDvUYz6 wUZessC0pbNwhIDkV5fpxM4f AVSbPS4ohgkbr7ysGSjvTFyj KFOpvUV8zsB7GLSbuACoB8Hp xB0vXPDhZIpfWHZsifv4YdJv Uf4xdJXtzTjjSZwtNdunPTbr XHBnbmNvbnRccGduZGVjXHBs YWluXHBsYWluXGYwXGZzMjRc wWvriBmcaB3uLsAsLlEfRKbx SL8nVWErP5ycgCKaNCPpIFDd L0fxZjRvuQ3zrYmwASxpMtNq ZnMyMFxwYXIgSSBoYXZlIHBl ccJvmpFocLirbrL1bQZ1CJAl CRpwCEOxQQFmlGIqbr3rtMli WXMaPP8vEMFjurOsHRwkmKwr YBuwWNH9NLQpjWJxfRLmuGMx ZSBieSByZXNpZGVudHMsIGZl sYnii6Fjj1ShxSL6hY5qa6wt e4EuGVPaiXK3TR62kiU8lQ4v TPCmXD2sHGJcNB9niTKfxNBq OHSmw45gxHkdbgPnKCHsixYy XHBsYWluXGYyXGZzMjhcbGFu ZzEwMzNcaGljaFxmMlxkYmNo FESlUOnoJ1lsWbBxArOnTItj OEC0zBbuveAnZJlzm0VsS5Nx MjAwMFxhbnNpXGRlZmxhbmcx TGCqSAP2zyOlMCMtGEqjDYGz NOvcNr6ckALxqNvnRfMlVNWq f8rudsQUPOntRgYlK639RLNk ODtrz4vww0DbSKZtkJYjh0I5 TFUTvlayqFc4sKdoN38zu8N3 KprjQ8ckIHAtQAQlN3VlVQ8d HEYgXwt2NRH3HTX2JFGpXXZy J0PcOI3rYLNliTLjHVi8i9jd dJsjWCAeTUP4x8ruEDdxccP9 UF9qoj4jlVb1o4dktnQhZYLk HOPlbNQFDFDfY9VctYhhZc4u oLx6nJwwXqtoCAB1Wqx4SM9i eo97okv2iZxnSRTdplpcYuH6 GLtdUJIsnekpCDw3CYbwTCAv fSB0HJTqwWAyL6NbTPQkJG9o iec6GFL0NYkvGOAlHmA3BEAy xNZiGTVcoIdbXKfnq112CZG3 YpEjKX0dZ8Ilp3E4zP1icWGc WDLoeZDvGmJrOHLsqf4kiXSo KVvbo4UmY03txCR8ZAjxw0zc AD2bAxM7qaBcOHlky9oruZ7u GzQ9HJohWL7cfq84LJQpCAJ3 gc8weRHofSceixFfmQExYJol A4AnOCUcc799UWUgJ9LhFFEe u2P4luOoSbBjJCUsfSV8qeE2 GQWuNNy3yBNqffE0mcAotZDu V3qneY2kIGExYG9gadbvh8bt SMppYUcnEKTnsVU8lcM5TWJd mJGsH1UtnS4xHTDjHIpoFAFg kxr4OpHnIf3jkLTmbCyvEFgu YmtwYWdlXHBnbmNvbnRccGdu ZGVjXHBsYWluXHBsYWluXGYw NWRwRaCsiLWrHJkly8EdfaSu rIauYQRlNUg3bjRjmtisvSg8 iXFmhKawLBEkjDsieZ6pHwEu FcPbEYelSJ3iVVMeH2hqdRFj IXRrUIVxJ4ufUfMhmP8ijJst MVxjZjJcZnMyMFxsdHJjaFxw YXIgSSBoYXZlIHBlcnNvbmFs hTzgpoR0fLG9AVIlGUgbHPSe DURxbOFeek3gpZziIPTaBQ5j IGFncmVlIHdpdGggYWxsIHN0 YXRlbWVudHMgbWFkZSBieSBy VZGgMTXefXMrFLGteMasr0Oh t8DjlKI4aO3mq5gtg8AkEDHs iEF8OJ62xcU8oU9rYFZhCD6i QTRqHG7ekXLswURyRWXsa95k dGhpcyByZXBvcnQuXHBsYWlu XGYxXGZzMjBcbGFuZzEwMzNc aGljaFxmMVxkYmNoXGYxXGxv A2ssCtWnA9KxOZLjQsHkiXIm GGYxxswoNCIac8YbGyVif8vi YZmhn1nqgGc6QIhkzNEtuhwo IAhlgfX1NVViEHkvYGRkFGAs MTRcbGFuZzEwMzNcaGljaFxm DVcfCyHoJNSwLBkaX9djRwHa C0KbJDUjMGTmeMSgQ2wxPKP7 yB7up9qsz0CzqOHbDgYbv4fk bmFsIGNvbXBvbmVudCBwZXJm k7RtLOOqTNMyQNCJBy6UFHQl wSJkM5z0oESNYL6fkEXwFXFd AQQrB3SuKuZHzhNqp7C8PDCj yABuJHEZRQPkuZWgO1q2mOju ANhfYyk6QjFshTvqhS0zGwDs VaPwVEgcYS7fDYBiD8zspZEc LVQkUXRgI8ooFnIvjI9joEay MVxjZjJcZnMyMFxsdHJjaFxw YXJ9fQ== Clinical Information (test code = 1086843036) LEFT LOWER PELVIC PAINSUSPICION FOR ECTOPICDESIRES IUD REMOVAL Gross Description (test code = 2499338450) v6gsrBQnFQIgoLCGOGF3PJHp UG4kiXbciQi6iRbxUUHeoqC3 qHXqEHwow1heOBW9l8qsldBI QkgaNEDlDK5mWVmzSJKvGN5o ZmUwXGRlZmYxXHBhcGVydzEy ExHcWXKtwTFoyMX5ZJTyFC4u dmfeUWabZRfjVEWgvzE9DODj pVMyT8FbCNCnMJ7fnnlgIJP7 DJYCXhveXa5igQRdlWhsObOf ZmNoYXJzZXQwXGZuaWwgQXJp XFj1mO7GIpngUYK5UTZIMwsk McktzTfqw6EtyWRyOJUtJAkx aWQgNTEwMDAgXFxkYiBPVlIg NbH6VRLiGvA3GgD2ISd3FBSM BJJhHdw1ToQ7JKS9UWj5MKRh CP8aOFiicACsPVgmFfxcFErq W028EWdwFHHcN8SrZ3BrHFbl ZyBcXGlkIDUxMDAyIFxcZGIg Z5DZWWXfSBn7HLqiHxByPZi4 FYxcG5EFCUJkAHU9EEVsBtm3 ZaB8VSz6DPCNTr0zPLavCEU0 XLS0KTW2VQf2VEJyEBXyIrPh JBAjOBWqYFaqyPQyDJ8fbOrn ZWHlYF3SWFDfVBmzDWLaZcSg G0STB3qLLD0dYPeufNWuhCfy otDjHZZzsfQNTaxuQHYiIG9D LGEbGVtbSIv9eiIyCLSwOsNy SEPkQ34vg0EGn9StZI5TZIc3 vaPvtavvvD4xEWDmjaDmw6Jw MFxlcGljWHNhMzAgDQpTcGVj mV5rlzGBHVakKSLmK4XonyMo DXsbWHPcuy3fnScaUXmcEtXv LFMnx3i9mWY5vCRmcDA6aBGq jFftPW1rgPJvTKNHZR42aSAe hfomJtKphCkiqUjdwbP7dAVw XHWuJFP9ToUursFdB26ch9pe jXFip7HeASQvlW5jsFOpdFWl LXBpbmsgZGlsYXRlZCBzZWdt XI56PK9pLDMrtUMxzGM0HYYl KoNcnZ2vcANlCGR4UrMwYOTx WSOdcQIiznEgFV8qmFfqDzsn YR5iEERqLLvrCZYsOH0ctZYo RTP1vYEfZIVao5Fpv9SqfJMp DHFeE2YjCHt9BIvhItDgTAKm BBJgBKWirL4sCSJilH30DcYx U4SnaRAhcPgjc2NjsIqvdqvd FtEbCLGyFCbaPDDrhGV7IRGt nOFgOV8lz8t8mTWnLBToXLTq XMXweC46qVJzMKLde52cZVSh o7QhWHUWcxQmEOCelOVkqzDa uBOnqXMgj8BeX3qxivsvntie UWDgpUklKSGfJXFehm0pu0c0 FKxkDX18hYEsVWNkEF7sNFQm NATcmJOhcP0vitEytpHtwcXb mlRmuKSmfJUodDO4IGYzoE7g EBEwZMzhKN9PMZDtcOOOAWZ3 ST6wWLpgWDHlV8OlX9GmtuN1 BNVqptHTDlqrUwifnTafr5Nn dCBcXHNnIFxcaWQgNTEwMDIg ONexMoIDWeMqCfN3PJFwNvQ1 VxO6LKw6GQPISyQaVhQlXrRh UKA1UVBgYUe3ZOd0VMkNHqGi ICE0TmJ1YLE5FUJ8FwH3ASod fYIaCSpxv9TxLoStESNhZZgy frM3SQYptuCcf3IbCLCrHMDv G7evElGnJDSDPiqnvkKqMJJO RUNJTUVOIEJcZnMyMlxwYXIg DQpccGFyZCANClxwbGFpblxs dHJjaFxmczIyXGVwaWNOZXN0 VL0yGJFQBcqwtXKnPAJlbQgc PMfkcH9uROCpLuNrZRGhV2qm DhMbUK7WH3YbF8keAU6wUWAj cyByZWNlaXZlZCBmcmVzaCBs MUObfNjbTJQ4aKQwYRLjUDKo FDBjCI41IMsLDVNhbyQzTCqs VUggbnVtYmVyIGBgIGludHJh bQWwwlkjLTLwDOEdY4VifoTl x7RqaXnzBuRxW8H6ZFQiYPMi k59ddRL8wsIgQuJvPRPcoisl AMN1iFn8PPKiyOEdpMvgLWwn q6UajLzdhT34LOQ2UBuqkPFv mHRxzcpfXXGbMQYeS6LgFLFi sahmMPEnunQ2hPHgu0nsuTQy h3AxeYtwDXdvbOGvrnOBDGg9 cYBsSrSgGCYzeZDcXS4lPFY6 ixSiAAMnSfOdsSDbHK7atMgc PX9vBKHzHXSnnTMrnrFviFZf ZXRlciBhbmQgdGhlIHRvcCBj un0pffZhDSUiiSGhx9HbPRGs Ly88EHzwGA3sAHgxSU7tTTSo YW3hYVwuktJimNCrWQXhr7Wh fUUag8RifY1gUOe4VsOlB06h tW0npOMpN3QjMIUmCQLcVCQq VKQkYI6sAD4dLHYzEMgtWUEo OV4wpIGdZJQtqMKfA8qkRRV4 rhT6mNYzAf62dE6vTI8lRJOp RKGnPZFvYBJ3RB1wTCakt6Tw ZP8mUQjzBDxvbPyozP4jkePe tUAkWVWsDQClv5DiDfQMjTUl u0RqC4skWV0abBFaKt3hCNhr g3ClFTG0SN0qmyF2fZ8bAV2o bHkuXHBhciANClxzYjBcZXBp P0jmZeLxSMuytJTiGN7SWiVk rAKvRHWHiBlaehI5HDSTLHLg CWECNYzkwOExFT5FSWFtKpRu KSEeH3dzUOIvXS0UHSQcsLQA JTV3PJ5yYToiPLSuG3GvL6Ao fgB8a1cbdZuta1LztUTaRH7n fIObPO0PYMJwzxFkOMk7 Disclaimer (test code = [id number]) p4rgmLUeZRCxe9qnGYXmzCZs ZzEwMzNcZnRuYmpcdWMxIHtc mxMsWCaib0AwZ2WqNmYpPErb bnNpXGRlZmxhbmcxMDMzXGZ0 umMbAFJhSYtrVFPuBWukPc0e yKYauBwtZcCjLVMjl8zbjbAK XEopRqZiM917NGYgIAzcy5du f3AvVWOohVPjx3Q8MCHBogdr hFh3bRfpL27kb1Y2JlfrB1ib HJCcZTDoN6KpUD9rZUDvOpz5 EDA6YIS0VCVrWJTzO5ThTU5i SSVciVVvVPp6e5fvuLnyDOEk YDZ6p3yaBCbvovNwFE1ahz0s xPa6o8lxsbElIFMhLXEgiMON UEGmP6GyuKtxOf5tvWr3bAvo NahmLMK1Csy2PX9bid77wkx8 eKmfEHWyndagLoN8CRnaUDKg celtHFo9EGweSXIbxAF1DGJg lQReJ3PtFCMwDQ3gcwh3BCU6 BEgaEZJbUhB0LMJmjSWgUJKa aZtxKRqkv678VAG9BgLrCN8k B6Qvo1T7bB3jkXKpPADjlMEc HtQcOCXksd2tfOZfMJbjt8Rz HDF0haG7wPFegIJdMTAgKK32 Chzhi9TmFmiyn7CgL63fxQD5 RYckx3stDF9wIbL8yeQjJFpa o5indV1dTvV0QNdqDZ2iTL6a PNRrnC1qzeldQKPkNjVlcxok BWWkxYgkujAaIf7uvBeaQRD4 KNgrT9sydW7mUvL6OXiiI4bj uN1mQLl5MPzkrCO1YHGlyK4o FV3bfiwox0lyWRrzQShtQNWd iyB0wlA0ZQKnyVDkU3SmjU8t HDSkHE3jsfhja1doTOA7YZqa HTYuWQU4ZvWsDOZcr4Mswng4 TmEls5AziMUvASrrJ60tl341 XPJozaMjR9cnlDVmavvgmQIg vhrnFMifxvB6SMVsgrBmp8Pp DXGoULF9PXueNHjrfJHeFXYs fMxts8biD3CafXNoCMSjHRit XGYxXGZzMjBcbGFuZzEwMzNc aGljaFxmMVxkYmNoXGYxXGxv Q1zyPrXwI4BlRMHoWhJcsCPf K5ayUUdlleQzPYMddxGnsOG7 IKooU5z5JOOfqvEunZy3sdKj QwGxZBYpWFO4AWoocTJpCTVy z8PemufgmSJlRc2gcHEmLIYh kX1oVDQzTRZcYMicMB9amEb7 QULSfRWsoBWxUhHJGZLxTH98 aoUnWZYZcwagb6G2NPuwTBEb p9HogYFxL8wwj8AlDOCbd14i PQ2tl7G5q8laTOP8RR4ob2Bv ITHeuFSwwJKcFRHwq3Sdngiw n4RwIWHvcsGco0SjZZZasgGj cGTfRDYhujRecg5bfqSrNOEa LKLbE0VzuaxgeDgfpnNmMCXa cg0bltBvAWK0YXCJZMNmLQBz c9OicK7biYYDMCA5eWInth8d wuHZlWCmBEZvve08GWOzXR9a E9wiIQRjPMIfzzNlkHUrt2Sm CMTxvRN8hGYiAB0JObXRb78m IGFuZCBEcnVnIEFkbWluaXN0 prU8yN8rBTeAVNMtDay+IFRo GGXYNPQkDV6gbqIdp0OyksZc uBzeTPYcfODcl9ZnhJHdr3Hl lKcac4FsuOYebGLeBD4pWDIz clxwYXIgVVRNQiBMYWJvcmF0 j7IwBBVvMQHvLPL4jPbutgs5 HYVaoW2zCMEeB0ttjysaRVkz PPItu3AkgD7leXMBqATga2Fa fDTjnGETxIUzTR9kefXaXKdR LBkUYZJ1igAhWGRfb2PmUKob E7vcB10dyBcpgZr2dNX5CTB5 cB3tKgd+IFxwYXJccGFyIEFw oYYfeHMwNVKumTufjdHdU3Cf kkOygS5yfRQgouEbKP7eND9e P3K2sLRvJZYqtqVjh8umDOud dmUgYmVlbiByZXZpZXdlZCBm f3CaFDgxITU8UTgzpsZshfSo dWRpbmcgSCZFLCBTcGVjaWFs LJD7IYsftuQoceWiHI9fxG8w tXosaI2ucDHhfZN6vdbeMQIk LOJlwYxkYQSdSA4ysAntlQ5t XhNaUxGkVAgxNG8oAFLsT6ha vUGoQFWbGXFuN4ovDrWqhV3y aFxmMVxjZjJcZnMyMFxwYXJc cGFyXHBsYWluXGYxXGZzMjBc bGFuZzEwMzNcaGljaFxmMVxk AxMdDAOfSTryP0xvNjHoN7Bv MUUoQhIagLDpP6nuOJbuRPB7 TCYbQI9hzQHsZM82sPCyk7wm ZLvnaYswlz9iO99tfVYhMVsz cOyuXPEsd04sc5GvPLLgyrVz hh4tHEVlqzR7cJ5vFWIjxFmz DHHxyOAfJGRvs7SiZAsocYZu emVkIGdsYXNzIHNsaWRlcyB0 byBhcnJpdmUgYXQgdGhlIGFi k7OzYJAfQBjfp5Ssor3eyTTy RMRnpxQVyTzjpSBdvP1rV1Lm OKLqYBBluf8uMCWwmS0rPOqs e4FvjtuaNUNkVKTzRIFtmmTp vp3hFZAofBYDRP2YAGiktYBm d6IxirMlR9vRRHO4GGUkRfMh StmoUFWklHBgtXHlIELdfu51 CJGonE1izWmvZHAnhI0poA1i iRnsuG2qAeXaJsItGNpjZX6u BEHxJ2frtLBqYVCoYNZmR4is YzVjiF1roVtoLJqoJbNwShKr UTikCZV8fZ== Embedded Images (test code = 4633269522) [facility]. METABOLIC PANEL ([id number])2023-05-15 04:27:58* Test Item Value Reference Range Interpretation Comme nts NA (test code = 3815692537) 140 mmol/L 135-145 K (test code = 3441534382) 3.3 mmol/L 3.5-5.0 L CL (test code = 8073334988) 105 mmol/L 98-108 CO2 TOTAL (test code = 5470686823) 21 mmol/L 23-31 L AGAP (test code = 5062633486) 14 2-16 BUN (test code = 7944302053) 10 mg/dL 7-23 GLUCOSE (test code = 9234973770) 95 mg/dL 70-110 CREATININE (test code = 1273395388) 0.58 mg/dL 0.50-1.04 TOTAL BILI (test code = 6439090897) 0.4 mg/dL 0.1-1.1 CALCIUM (test code = 2004935555) 9.5 mg/dL 8.6-10.6 T PROTEIN (test code = 1528743664) 8.0 g/dL 6.3-8.2 ALBUMIN (test code = 2608763564) 4.9 g/dL 3.5-5.0 ALK PHOS (test code = 9792463152) 48 U/L 34-122 ALTv (test code = 1742-6) 21 U/L 5-35 AST(SGOT) (test code = 1277299323) 27 U/L 13-40 eGFR (test code = 8459654016) 128.8 mL/min/1.73m2 ENE (test code = ENE) [...] imaging tests). Lab Interpretation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 Specimen: Gallbladder Findings: Chronic cholecystitis, critical view of safety achieved, cholangiogram attempted but not completed due to inability to pass catheter into the cystic duct Complications: None Indications: Africa Larry is a 22 year old female who [...] with endotracheal intubation was performed by the BRAND EXECUTIVE without difficulty. Preoperative antibiotics were administered prior [...] patient received no blood products. Mily Delgadillo M.D. 03/01/2023 10:[address] [facility] 2023-02-22 13:07:51 Formatting of this n ote might be different from the original. Images from the original note were not included. Your procedure is at [facility] on 03/01/23. The address is [address] [place] [address] [facility] nursing staff will call you the workday before your procedure to let you know what time to arrive.On the day of your procedure, please go inside that door and check in at the desk. Please note: You may not travel home alone [...] up until two hours before your scheduled procedure. You may take your medications with a sip of water as directed by physician. Anticoagulants will be per physician guidance. Medication Note(s)/Instructions:n/a Pending screening, we may test for COVID. If a patient tests positive, their cases are cancelled and/or rescheduled. COVID SCREENING NOTE: Denies COVID symptoms, no testing required. Additional requests, questions, concerns:n/a Patient verbalized understanding of pre-op instructions and voiced no further questions at this time. [facility] 2023-02-18 19:15:28 Formatting of this n ote might be different from the original. L/M advising pt she would need to se SENIOR BUSINESS DEVELOPMENT ANALYST or [facility] for evaluation. Unable to send refills. ARITA Cummings RN [facility] 2023-02-03 08:30:00 Addended by: RADHA MENDOZA LVN on: 02/03/2023 09:49 AM Modules accepted: Orders SHAT Radha Mendoza [employer]IVE [employer] [facility]
[2024-06-12 17:06] LABS: Sqamous Epithelial <5 /HPF (None Seen); Urine Bacteria <20 /HPF (<20); Urine Bilirubin NEGATIVE (Negative); Urine Blood 3+ (OVER) (Negative); Urine Clarity Extremely Turbid (Clear); Urine Color Colorless (Yellow); Urine Culture Reflex Order NOT NEEDED; Urine Glucose NEGATIVE (Negative); Urine Ketones NEGATIVE (Negative); Urine Microscopic Reflex YN ORDER UMIC; Urine Mucus Slight /HPF (None Seen); Urine Nitrite NEGATIVE (Negative); Urine Protein TRACE (Negative); Urine RBC >50 /HPF (None Seen); Urine Urobilinogen Normal (Normal)
--- NOTE | 2024-06-12 17:23 | RAD REPORT ---
Exam:Elbow Left 3 View HISTORY: Left elbow pain FINDINGS: No fracture or dislocation seen
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
--- NOTE | 2024-06-12 17:39 | EDPHYS ---
Physician Documentation [facility] Name: Mckenzie Wang Age: 24 yrs Sex: Female : 2000 Arrival Date: 06/12/2024 Time: 16:14 Bed 7 Private MD: BEST Physician Gio Brandt HPI: 06/12 16:28 This 24 yrs old Female presents to ER via Law Enforcement with complaints of teresa Elbow Injury - headache. 16:28 The patient or guardian complains of an abrasion, decreased range of motion, injury, teresa pain. The complaints affect the left elbow. Context: The problem was sustained at home. 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 - Infectious Disease History:: Denies. - Social history:: Smoking status: Patient reports the use of cigarette tobacco products, Reported history of juuling and/or vaping. ROS: 16:40 Constitutional: Negative for fever, chills, and weight loss, Eyes: Negative for injury, teresa pain, redness, and discharge, ENT: Negative for injury, pain, and discharge, Neck: Negative for injury, pain, and swelling, Cardiovascular: Negative for chest pain, palpitations, and edema, Respiratory: Negative for shortness of breath, cough, wheezing, and pleuritic chest pain, Abdomen/GI: Negative for abdominal pain, nausea, vomiting, diarrhea, and constipation, Back: Negative for injury and pain, : Negative for injury, bleeding, discharge, and swelling, Neuro: Negative for headache, weakness, numbness, tingling, and seizure, Psych: Negative for depression, anxiety, suicide ideation, homicidal ideation, and hallucinations, Allergy/Immunology: Negative for hives, rash, and allergies, Endocrine: Negative for neck swelling, polydipsia, polyuria, polyphagia, and marked weight changes, Hematologic/Lymphatic: Negative for swollen nodes, abnormal bleeding, and unusual bruising, 16:40 MS/extremity: Positive for decreased range of motion, laceration, pain, of the left elbow, Exam: 16:40 Constitutional: This is a well developed, well nourished patient who is awake, alert, teresa and in no acute distress. Head/Face: Normocephalic, atraumatic. Eyes: Pupils equal round and reactive to light, extra-ocular motions intact. Lids and lashes normal. Conjunctiva and sclera are non-icteric and not injected. Cornea within normal limits. Periorbital areas with no swelling, redness, or edema. ENT: Nares patent. No nasal discharge, no septal abnormalities noted. Tympanic membranes are normal and external auditory canals are clear. Oropharynx with no redness, swelling, or masses, exudates, or evidence of obstruction, uvula midline. Mucous membranes moist. Neck: Trachea midline, no thyromegaly or masses palpated, and no cervical lymphadenopathy. Supple, full range of motion without nuchal rigidity, or vertebral point tenderness. No Meningismus. Chest/axilla: Normal chest wall appearance and motion. Nontender with no deformity. No lesions are appreciated. Cardiovascular: Regular rate and rhythm with a normal S1 and S2. No gallops, murmurs, or rubs. Normal PMI, no JVD. No pulse deficits. Respiratory: Lungs have equal breath sounds bilaterally, clear to auscultation and percussion. No rales, rhonchi or wheezes noted. No increased work of breathing, no retractions or nasal flaring. Abdomen/GI: Soft, non-tender, with normal bowel sounds. No distension or tympany. No guarding or rebound. No evidence of tenderness throughout. Back: No spinal tenderness. No costovertebral tenderness. Full range of motion. Pelvic Exam: Normal external genitalia. Speculum exam with closed cervical os, no discharge or bleeding noted. Bimanual exam with normal adnexa, no adnexal or cervical motion tenderness. Normal uterus. Female : Normal external genitalia. Neuro: Awake and alert, GCS 15, oriented to person, place, time, and situation. Cranial nerves II-XII grossly intact. Motor strength 5/5 in all extremities. Sensory grossly intact. Cerebellar exam normal. Normal gait. Psych: Awake, alert, with orientation to person, place and time. Behavior, mood, and affect are within normal limits. 16:40 Skin: Appearance: Color: normal in color, Temperature: normal temperature, abscess, not appreciated, cellulitis, is not appreciated, injury, abrasion(s), small abrasion noted, of the left arm and left elbow, Vital Signs: 16:17 BP 108 / 75; Pulse 69; Resp 18; Temp 98.7; Pulse Ox 100% ; Weight 49.9 kg; Pain 10/10; ap3 16:17 Pain Scale: Adult ap3 MDM: 16:17 Medical Screening Exam initiated kb 16:41 Differential diagnosis: dislocation, closed fracture, contusion, abrasion, tendonitis. teresa Data reviewed: vital signs, nurses notes, lab test result(s), urinalysis, radiologic studies, plain films. Consideration of Admission/Observation Escalation of care including admission/observation considered. I considered the following discharge prescriptions or medication management in the emergency department Medications were administered in the Emergency Department. See MAR. Independent interpretation of the following test(s) in the Emergency Department X-Ray: My interpretation is left elbow pain , abrasion. Test considered but Not performed: Labs: no cbc , no comp met. Historians other than the Patient: Law enforcement: police. Care significantly affected by the following chronic conditions: bipolar. 06/12 16:30 Order name: Urinalysis w/ reflexes; Complete Time: 17:38 [facility] 06/12 16:30 Order name: PREGU; Complete Time: 17:38 [facility] 06/12 16:19 Order name: Elbow Left 3 View XRAY: shield; Complete Time: 17:38 [facility] 06/12 16:30 Order name: Ice pack; Complete Time: 16:38 [facility] Administered Medications: 16:44 Drug: Yhqnmpvk-Fbasxwlowr-Dvuuchbcx Topical Ointment 1 application Topical once Route: ap3 Topical; Site: affected area; 18:06 Drug: Rocephin (cefTRIAXone) IM 1 grams IM once Route: IM; Site: left gluteus; ap3 18:21 Follow up: Response: No adverse reaction ap3 18:06 Drug: Ciprofloxacin PO 500 mg PO once Route: PO; ap3 18:21 Follow up: Response: No adverse reaction ap3 Disposition Summary: 06/12/24 17:38 Discharge Ordered Notes: Location: Home teresa Problem: new teresa Symptoms: have improved teresa Condition: Stable teresa Diagnosis - Pain in left elbow teresa - Abrasion of left elbow teresa - UTI/ Urinary tract infection, site not specified teresa Followup: teresa - With: Private Physician - When: 2 - 3 days - Reason: Recheck today's complaints, Continuance of care, Re-evaluation by your physician Followup: teresa - With: Silver Rosado MD - When: 2 - 3 days - Reason: Recheck today's complaints, Re-evaluation by your physician Discharge Instructions: - Discharge Summary Sheet teresa - Abrasion teresa - Joint Pain teresa - Arthritis teresa - Musculoskeletal Pain teresa - Urinary Tract Infection, Adult teresa - Urinary Tract Infection, Adult, Hkjy-vc-Flcf teresa - Abrasion, Ofnv-ay-Svra teresa - Arthritis, Eabe-uy-Xueu teresa - How to Use Cold Therapy teresa - Joint Pain, Banj-ra-Rgse [facility] Forms: - Medication Reconciliation Form teresa - Antibiotic Education teresa - Prescription Opioid Use teresa - Patient Portal Instructions [facility] - Leadership Thank You Letter [facility] Prescriptions: - Cipro 250 mg Oral tablet - take 1 tablet ORAL route every 12 hours; 14 tablet; Refills: 0, Product [facility] Selection Permitted Signatures: Dispatcher [employer] Rosalina Franco, SHAYLA-C CABLE INSTALLATION MANAGER-Gio Contreras MD MD cha Prokisch, Amanda, RN RN ap3 Corrections: (The following items were deleted from the chart) 16:20 16:20 Elbow Left 3 View+RAD.[email or web address].[email or web address] ordered. BESTIA SARAHY
[2024-06-12] MEDS ORDERED: CEFTRIAXONE 1000 MG/VIAL ONE (17:55)
[2024-06-12] MEDS ORDERED: LIDOCAINE 1% MPF 5 ML VIAL ONE (17:55)
[2024-06-12] MEDS ORDERED: CIPROFLOXACIN HCL 500 MG TAB ONE (17:55)
[2024-06-13 00:19] VITALS: BP 108/75; TEMP 98.7; O2SAT 100
== END 2024-06-12 18:21 | disposition home or self-care (01) ==
LOC: ER 16:14
DX: S50.312A Abrasion of left elbow, initial encounter (principal); N39.0 Urinary tract infection, site not specified
CPT/HCPCS: 81001; 81025; 96372; 99284; J0696; J2003

== ENCOUNTER 2024-08-02 15:20 | Emergency (ER) | payer SELFPAY ==
--- OUTSIDE RECORDS SUMMARY | 2024-08-02 15:27 | XMS REPORT | Continuity of Care Document ---
Author Name Unknown Address [address] [facility]. [address] [place] [address] [facility] thconnect Address [address] [facility] [address] [place] [address] Care Team Providers Care Percussion Instructor Name Role Phone Marley Clement Primary Care Physician [phone] ALYSON MICHEL Attending Clinician UnavailALYSON Sheikh Attending Clinician UnavailAlyson Sheikh DO Attending Clinician [phone] Doctor Unassigned, [place] Attending Clinician U TRISTAN Odell Attending Clinician Unavailable TRISTAN GAUTAM Attending Clinician Unavailable Tristan Gautam DO Attending Clinician [phone] CAROLYNN ESPARZA Attending Clinician Unavailable CAROLYNN ESPARZA Attending Clinician Unavailable DONALD MCGRATH Attending Clinician Unavailable NEMO PRADO Attending Clinician UnavailNEMO Harris Attending Clinician UnavailBrianne Browne PA-C Attending Clinician [phone], [facility] Attending Clinician Unavailable MARLEY FUNEZ Attending Clinician Unavailable KALINA HARO Attending Clinician KALINA Mensah Attending Clinician Jatinder marcum Doctor Unassigned, [place] Attending Clinician U KENNY Stahl Attending Clinician Unavailable Kenny Suresh Attending Clinician [phone] MILY DELGADILLO Attending Clinician Unavailable Aye Flowersney Attending Clinician Mily Delgadillo MD Attending Clinician [phone] BRIANNE BRITTON Attending Clinician Unavailable Marley Clement Attending Clinician [phone] Unknown, Attending Attending Clinician Unavailab Nell Meraz MA Attending Clinician UnavailLivan Irizarry CRNA Attending Clinician [phone] Luis Levin MD Attending Clinician + [phone] Pob, [facility] Main Attending Clinician Unavailabl e Only, [facility] Attending Clinician Unavailable GIDEON SANTOS Attending Clinician Unavailable Green LUTE PACKER OR APPLIER, Gideon Attending Clinician [phone] Ebrahim LUTE PACKER OR APPLIER, Alirioia Attending Clinician [phone], [facility] Usg Room Attending Clinician Unavaila Lesly Norton MD Attending Clinician [phone] LESLY ELLIOTT Attending Clinician UnavailCassy Pacheco MD Attending Clinician [phone] Ultrasound, [facility] Attending Clinician Unavaila Gio Catherine DO Attending Clinician [phone] Avis Roberts S Attending Clinician [phone] Ibflaquito LUTE PACKER OR APPLIER, Charlene F Attending Clinician [phone] CASSY RUTHERFORD Admitting Clinician Unavailable ALYSON MICHEL Admitting Clinician Unavailab KALINA Culver Admitting Clinician CAROLYNN You Admitting Clinician Unavailable MILY DELGADILLO Admitting Clinician Unavailable Mily Delgadillo MD Admitting Clinician [phone] MARLEY FUNEZ Admitting Clinician Unavailable Carolynn Esparza MD Admitting Clinician [phone] Cassy Rutherford MD Admitting Clinician [phone] Payers Payer Name Policy Type Policy Number Effective Date Expirati on Date Source [employer]ICA[employer] [id number] 2021 00:00:00 Problems Condition Name Condition Details Condition Category Status Onset Date Resolution Date Last Treatment Date Treating Clinician Comments Source Upper abdominal pain Upper abdominal pain Disease Active 0 7-20 00:00: 00 [facility] Gallstones Gallstones Disease Active 7-15 00:00: 00 [facility] Well woman exam with routine gynecologi anna exam Well woman exam with routine gynecologi anna exam Disease Active 2021-07 0-04 00:00: 00 [facility] Nausea and vomiting during prior to 22 weeks gestation Nausea and vomiting during prior to 22 weeks gestation Disease Active 3-30 00:00: 00 [facility] No known active problems No known active problems Disease [facility] Pelvic pain in patient at less than 20 weeks gestation Pelvic pain in patient at less than 20 weeks gestation Disease Resolve d 2022-07 0-27 00:00: 00 2023-05-23 00:00:00 2023-05-23 13:16:43 [facility] Pelvic cramping in antepartum period Pelvic cramping in antepartum period Disease Resolve d 2022-07 0-24 00:00: 00 2023-05-23 00:00:00 2023-05-23 13:16:42 [facility] Vaginal bleeding affecting early Vaginal bleeding affecting early Disease Resolve d 2022-07 0-24 00:00: 00 2023-05-23 00:00:00 2023-05-23 13:16:46 [facility] Presence of intrauteri ne contracept magda device (IUD) Presence of intrauteri ne contracept magda device (IUD) Disease Resolve d 2021-07 1-23 00:00: 00 2023-05-23 00:00:00 2023-05-23 13:16:40 [facility] Vaginal discharge Vaginal discharge Disease Resolve d 0 3-03 00:00: 00 2023-05-10 00:00:00 2023-05-10 15:16:58 [facility] Rash and other nonspecifi c skin eruption Rash and other nonspecifi c skin eruption Disease Resolve d 0 3-03 00:00: 00 2023-05-10 00:00:00 2023-05-10 15:17:04 [facility] BMI 28.0-28.9, adult BMI 28.0-28.9, adult Disease Resolve d 2022-0 3-03 00:00: 00 2023-05-10 00:00:00 2023-05-10 15:17:02 [facility] 39 weeks gestation of 39 weeks gestation of Disease Resolve d 2021-1 0-04 00:00: 00 2022-05-12 00:00:00 2022-05-12 14:33:04 [facility] Liveborn infant, of [place]or , born in hospital by vaginal delivery Liveborn infant, of victor , born in hospital by vaginal delivery Disease Resolve d 1 0-04 00:00: 00 2022-05-12 00:00:00 2022-05-12 14:33:08 [facility] Gastroesop hageal reflux disease, unspecifie d whether esophagiti s present Gastroesop hageal reflux disease, unspecifie d whether esophagiti s present Disease Resolve d 2021-0 8-25 00:00: 2022-05-12 00:00:00 2022-05-12 14:33:10 [facility] Encounter for tubal ligation counseling Encounter for tubal ligation counseling Disease Resolve d 2021-0 7-19 00:00: 00 2022-05-12 00:00:00 2022-05-12 14:33:12 [facility] Nausea and vomiting during prior to 22 weeks gestation Nausea and vomiting during prior to 22 weeks gestation Disease Resolve d 2021-0 3-30 00:00: 00 2022-05-12 00:00:00 2022-05-12 14:33:13 [facility] High risk , antepartum High risk , antepartum Disease Resolve d 2021-0 3-30 00:00: 00 2022-05-12 00:00:00 2022-05-12 14:33:15 [facility] Tinea corporis Tinea corporis Disease Resolve d 2018-0 4-11 00:00: 00 2021-10-14 00:00:00 2021-10-14 15:53:21 [facility] Pyelonephr itis Pyelonephr itis Disease Resolve d 2019-0 2-20 00:00: 00 2021-10-14 00:00:00 2021-10-14 15:53:09 [facility] Excessive bleeding Excessive bleeding Disease Resolve d 2017-0 2-26 00:00: 00 2021-10-14 00:00:00 2021-10-14 15:53:08 [facility] 40 weeks gestation of 40 weeks gestation of Disease Resolve d 2017-0 2-13 00:00: 00 2021-10-14 00:00:00 2021-10-14 15:53:17 [facility] Normal labor and delivery Normal labor and delivery Disease Resolve d 2017-0 2-13 00:00: 00 2021-10-14 00:00:00 2021-10-14 15:53:18 [facility] Supervisio n of high-risk of young primigravi da Supervisio n of high-risk of young primigravi da Disease Resolve d 2016-07 0-09 00:00: 00 2021-10-14 00:00:00 2021-10-14 15:53:12 [facility] High risk teen in second trimester High risk teen in second trimester Disease Resolve d 2016-07 009 00:00: 00 2021-10-14 00:00:00 2021-10-14 15:53:13 [facility] care insufficie nt, second trimester care insufficie nt, second trimester Disease Resolve d 2016-07 0-09 00:00: 00 2021-10-14 00:00:00 2021-10-14 15:53:17 [facility] Allergies, Adverse Reactions, Alerts Allergy Name Allergy Type Status Severity Reaction(s) Onset Date Inactive Date Treating Clinician Comments Source NO KNOWN ALLERGIE S Drug Class Active [facility] Social History Social Habit Start Date Stop Date Quantity Comments Source ASSERTION 2021-08-04 00:00:00 [facility] Gender identity [facility] Sexual orientation [facility] Alcoholic beverage intake 2024-07-28 00:00:00 2024-07-28 00:00:00 Ex-drinker (finding) [facility] Alcohol intake 2023-05-23 00:00:00 2023-05-23 00:00:00 Ex-drinker (finding) [facility] History of Social function 2023-03-01 00:00:00 2023-03-01 00:00:00 [facility] Tobacco Comment 2023-02-22 00:00:00 2023-02-22 00:00:00 vapes [facility] Tobacco use and exposure 2023-02-22 00:00:00 2023-02-22 00:00:00 Smokeless tobacco non-user [facility] Exposure to SARS-CoV-2 (event) 2022-11-05 00:00:00 2022-11-15 12:57:00 Not sure [facility] Sex assigned at 2000 00:00:00 2000 00:00:00 [facility] Smoking Status Start Date Stop Date Source Never smoked tobacco [facility] Medications Ordered Medication Name Filled Medication Name Start Date Stop Date Current Medication? Ordering Clinician Indication Dosage Frequency Signature (SIG) Comments Components Source ARIPiprazol e (ABILIFY) 10 mg tablet 07-28 00:00: 00 08-28 05:59 :00 Yes [id number] 10mg Take 1 tablet by mouth in the morning for 30 days. [facility] escitalopra m oxalate 10 mg tablet 07-28 00:00: 00 08-28 05:59 :00 Yes [id number] 10mg Take 1 tablet by mouth in the morning for 30 days. [facility] cefTRIAXone (ROCEPHIN) 350 mg/mL in Lidocaine 1 % injection 500 mg 2023-07 02:30: 00 06-03 03:27 :00 No 500mg 500 mg, Intramuscu lar, ONCE, 1 dose, On 06/02/24 at 2030, SHAMAR, Reason for Anti-Infec tive: Empiric Therapy for Suspected Infection, Empiric Therapy Site: Pelvic, Duration of therapy: Once (ED) [facility] azithromyci n (ZITHROMAX) tablet 1,000 mg 2023-07 01:45: 00 06-03 03:28 :00 No 1000mg 1,000 mg, Oral, ONCE, 1 dose, On 06/02/24 at 1945, SHAMAR, Reason for Anti-Infec tive: Empiric Therapy for Suspected Infection, Empiric Therapy Site: Pelvic, Duration of therapy: Once (ED) [facility] metroNIDAZO LE 500 mg tablet 2023-07 00:00: 00 Yes [id number] 500mg Take 1 tablet by mouth in the morning and 1 tablet in the evening. [facility] ARIPiprazol e (ABILIFY) 2 mg tablet 2023-07 00:00: 00 07-03 05:59 :00 Yes [id number] 2mg Take 1 tablet by mouth in the morning for 30 days. [facility] ketorolac (TORADOL) injection 30 mg 2022-07 05:45: 00 05-15 04:55 :00 No 30mg 30 mg, Slow IV Push, ONCE, 1 dose, On 05/15/23 at 0045, Routine [facility] FENTanyl PF (SUBLIMAZE (PF)) injection 50 mcg 2022-07 05:15: 00 05-15 04:27 :00 No 50ug 50 mcg, Slow IV Push, ONCE, 1 dose, On 05/15/23 at 0015, Routine [facility] ondansetron (ZOFRAN (PF)) injection 4 mg 2022-07 05:00: 00 05-15 04:59 :00 No 4mg 4 mg, Slow IV Push, ONCE, 1 dose, On 05/15/23 at 0000, SHAMAR [facility] iopamidol (ISOVUE 370-500 mL) injection 80 mL 2022-07 05:00: 00 05-15 05:00 :00 No [id number] 80mL 80 mL, Intravenou s, ONCE, 1 dose, On 05/15/23 at 0000, Routine [facility] morpHINE (4 mg/mL) injection 4 mg 2022-07 04:00: 00 05-15 03:56 :00 No 4mg 4 mg, Slow IV Push, ONCE, 1 dose, On 05/14/23 at 2300, STAT [facility] ondansetron (ZOFRAN (PF)) injection 4 mg 2022-07 04:00: 00 05-15 03:56 :00 No 4mg 4 mg, Slow IV Push, ONCE, 1 dose, On 05/14/23 at 2300, SHAMAR [facility] ketorolac 10 mg tablet 2022-07 00:00: 00 Yes [id number] 10mg Take 1 tablet by mouth every 6 (six) hours as needed for Pain (scale 1-3). [facility] docusate (COLACE) capsule 100 mg 2022-07 13:00: 00 05-15 02:05 :19 No 100mg 100 mg, Oral, Q12H, First dose on 05/14/23 at 0800, Until Discontinu ed, Routine [facility] simethicone (GAS RELIEF (SIMETHICON E)) chewable tablet 160 mg 2022-07 02:00: 00 05-15 02:05 :19 No 160mg 160 mg, Oral, PC+HS, First dose on Tue05/13/23 at 2100, Until Discontinu ed, Routine [facility] ondansetron (ZOFRAN (PF)) injection 4 mg 2022-07 01:37: 02 05-14 01:38 :00 No 4mg 4 mg, Slow IV Push, PRN, 1 dose, Starting on Tue05/13/23 at 2036, Until Tue05/13/23 at 2037, Routine, Nausea and Vomiting (N/V), PACU [facility] FENTanyl PF (SUBLIMAZE (PF)) injection 25 mcg 2022-07 01:37: 02 05-14 02:43 :04 No 25ug 25 mcg, Slow IV Push, Q5MIN PRN, 4 doses, Starting on Tue05/13/23 at 2036, Until Tue05/13/23 at 2142, Routine, Pain (scale 4-6), PACU [facility] diphenhydrA MINE (BENADRYL) injection 25 mg 2022-07 01:13: 28 05-15 02:05 :19 No 25mg 25 mg, Slow IV Push, Q6HPRN, Starting on Tue05/13/23 at 2012, Until 05/14/23 at 210, Routine, Itching [facility] ondansetron (ZOFRAN (PF)) injection 4 mg 2022-07 01:13: 26 05-15 02:05 :19 No 4mg 4 mg, Slow IV Push, Q4HPRN, Starting on Tue05/13/23 at 2012, Until 05/14/23 at 2104, Routine, Nausea and Vomiting (N/V) [facility] HYDROcodone -acetaminop hen (NORCO 5) 5-325 mg tablet 1 tablet 2022-07 01:13: 22 05-15 02:05 :19 No 1{tbl} 1 tablet, Oral, Q6HPRN, Starting on Tue05/13/23 at 2012, Until 05/14/23 at 2104, Routine, Pain (scale 4-6) [facility] ibuprofen (IBU) tablet 600 mg 2022-07 01:13: 19 05-15 02:05 :19 No 600mg 600 mg, Oral, Q6HPRN, Starting on Tue05/13/23 at 2012, Until 05/14/23 at 2104, Routine, Pain (scale 1-3) [facility] bupivacaine (preserv free) 0.5% (SENSORCAIN E MPF) injection 2022-07 00:57: 00 05-15 02:05 :19 No PRN, Starting on Tue05/13/23 at 1957, Until 05/14/23 at 210, Routine, Intra-op [facility] sodium chloride 0.9 % irrigation solution 2022-07 00:30: 00 05-14 02:41 :13 No PRN, Starting on Tue05/13/23 at 1930, Until Tue05/13/23 at 2141, Intra-op [facility] HYDROcodone -acetaminop hen 5-325 mg tablet 2022-07 00:00: 00 05-22 04:59 :00 No [id number] 1{tbl} Take 1 tablet by mouth every 6 (six) hours as needed for Pain (scale 4-6) or Pain (scale 7-10) for up to 7 days. Indication s: acute pain [facility] morpHINE (2 mg/mL) injection 2 mg 2022-07 22:45: 00 05-13 22:48 :00 No 2mg 2 mg, Slow IV Push, ONCE, 1 dose, On Tue05/13/23 at 1745, STAT [facility] ondansetron (ZOFRAN (PF)) injection 4 mg 2022-07 21:00: 00 05-13 21:04 :00 No 4mg 4 mg, Slow IV Push, ONCE, 1 dose, On Tue05/13/23 at 1600, SHAMAR [facility] morpHINE (4 mg/mL) injection 4 mg 2022-07 21:00: 00 05-13 21:03 :00 No 4mg 4 mg, Slow IV Push, ONCE, 1 dose, On Tue05/13/23 at 1600, STAT [facility] fluconazole (DIFLUCAN) 150 mg tablet 03-04 00:00: 00 03-05 04:59 :00 No [id number] 150mg Take 1 tablet by mouth once now for 1 dose. [facility] morpHINE (2 mg/mL) injection 2 mg 03-01 15:39: 37 Yes 2mg 2 mg, Slow IV Push, Q5MIN PRN, 5 doses, Starting on Tue03/01/23 at 1039, Until Discontinu ed, Routine, Pain (scale 4-6), PACU [facility] ondansetron (ZOFRAN (PF)) injection 4 mg 03-01 15:39: 37 Yes 4mg 4 mg, Slow IV Push, PRN, 1 dose, Starting on Tue03/01/23 at 1039, Until Discontinu ed, Routine, Nausea and Vomiting (N/V), PACU [facility] sodium chloride 0.9 % irrigation solution 03-01 14:30: 00 03-01 16:08 :26 No PRN, Starting on Tue03/01/23 at 0930, Until Tue03/01/23 at 1108, Intra-op [facility] iohexoL (OMNIPAQUE 300-50 mL)) injection 03-01 14:30: 00 03-01 16:08 :26 No PRN, Starting on Tue03/01/23 at 0930, Until Tue03/01/23 at 1108, Routine, Intra-op [facility] bupivacaine (preserv free) (SENSORCAIN E MPF) 0.25 % (2.5 mg/mL) 30 mL, lidocaine-e pinephrine (XYLOCAINE WITH EPINEPHRINE ) 1 %-1:100,000 30 mL 03-01 14:28: 00 03-01 16:08 :26 No PRN, Starting on Tue03/01/23 at 0928, Intra-op [facility] lactated ringers IV infusion 1,000 mL 03-01 13:30: 00 03-01 13:37 :00 No 1000mL at 42 mL/hr, 1,000 mL, IV Infusion, ONCE, 1 dose, On Tue03/01/23 at 0830, Routine, DSU Pre-op [facility] ibuprofen 800 mg tablet 03-01 00:00: 00 05-10 00:00 :00 No [id number] 800mg Take 1 tablet by mouth every 6 (six) hours as needed for Pain (scale 4-6). [facility] HYDROcodone -acetaminop hen (NORCO) 5-325 mg tablet 03-01 00:00: 00 03-09 04:59 :00 No [id number] 1{tbl} Take 1 tablet by mouth every 6 (six) hours as needed for Pain (scale 7-10) for up to 7 days. Indication s: acute pain [facility] fluconazole (DIFLUCAN) 150 mg tablet 15 00:00: 00 12-31 04:59 :00 No [id number] 150mg Take 1 tablet by mouth once now for 1 dose. [facility] omeprazole 20 mg capsule 11-12 00:00: 00 11-27 04:59 :00 No [id number] 20mg Take 1 capsule by mouth in the morning for 14 days. [facility] triamcinolo ne acetonide 0.1 % cream 09-17 00:00: 00 03-01 00:00 :00 No [id number] Apply to area(s) 2 (two) times daily. [facility] metroNIDAZO LE 500 mg tablet 09-17 00:00: 00 09-25 05:59 :00 No [id number] 500mg Take 1 tablet by mouth every 12 (twelve) hours for 7 days. [facility] levonorgest reL (KYLEENA) IUD 1 Device 2021-07 17:15: 00 06-09 16:22 :00 No [id number] 1{devic e} [facility] miSOPROStoL 200 mcg tablet 2021-07 00:00: 00 06-09 00:00 :00 No [id number] 200ug Take 1 tablet by mouth SEE-INSTRU CTIONS. Take one tab the night before and one tab the morning of procedure [facility] fluoxetine HCl (PROZAC ORAL) 2021-07 0 08:16: 25 04-21 00:00 :00 No Take by mouth. [facility] famotidine (PEPCID (PF)) injection 20 mg 2021-07 0-05 01:00: 00 04-20 22:33 :17 No 20mg 20 mg, Slow IV Push, Q12H, 4 doses, First dose on Tue04/20/22 at 2000, Last dose on Tue04/22/22 at 0800, Routine [facility] vitamin w/FA tablet 2021-07 0 00:00: 00 Yes [id number] 1{tbl} Take 1 tablet by mouth in the morning. [facility] docusate 100 mg capsule 2021-07 00:00: 00 Yes [id number] 200mg Take 2 capsules by mouth once daily as needed for Constipati on. [facility] ibuprofen 600 mg tablet 2021-07 00:00: 00 Yes [id number] 600mg Take 1 tablet by mouth every 6 (six) hours as needed (Pain). Take with food or milk. [facility] ferrous sulfate 325 mg (65 mg iron) tablet 2021-07 00:00: 00 03-01 00:00 :00 No [id number] 325mg Take 1 tablet by mouth in the morning and 1 tablet in the evening. [facility] rho(D) immune globulin (RHOGAM) syringe 300 mcg 2021-07 22:33: 32 Yes 300ug 300 mcg, Intramuscu lar, ONCE, For 1 dose, Conditiona l, Routine [facility] HYDROcodone -acetaminop hen (NORCO 5) 5-325 mg tablet 1 tablet 2021-07 22:33: 28 Yes 1{tbl} 1 tablet, Oral, Q6HPRN, Starting on Tue04/20/22 at 1733, Until Discontinu ed, Routine, Pain (scale 7-10) [facility] ibuprofen (IBU) tablet 600 mg 2021-07 0 22:33: 28 Yes 600mg 600 mg, Oral, Q6HPRN, Starting on Tue04/20/22 at 1733, Until Discontinu ed, Routine, Pain (scale 4-6) [facility] acetaminoph en (TYLENOL) tablet 650 mg 2021-07 0 22:33: 28 Yes 650mg 650 mg, Oral, Q6HPRN, Starting on Tue04/20/22 at 1733, Until Discontinu ed, Routine, Pain (scale 1-3) [facility] diphenhydrA MINE (BENADRYL) tablet 25 mg 2021-07 004 22:33: 28 Yes 25mg 25 mg, Oral, Q6HPRN, Starting on Tue04/20/22 at 1733, Until Discontinu ed, Routine, Sleep, Itching [facility] ondansetron (ZOFRAN (PF)) injection 4 mg 2021-07 004 22:33: 28 Yes 4mg 4 mg, Slow IV Push, Q8HPRN, Starting on Tue04/20/22 at 1733, Until Discontinu ed, Routine, Nausea and Vomiting (N/V) [facility] simethicone (GAS RELIEF (SIMETHICON E)) chewable tablet 160 mg 2021-07 004 22:33: 28 Yes 160mg 160 mg, Oral, PC+HSPRN, Starting on Tue04/20/22 at 1733, Until Discontinu ed, Routine, Gas [facility] docusate (COLACE) capsule 200 mg 2021-07 004 22:33: 28 Yes 200mg 200 mg, Oral, QDAILYPRN, Starting on Tue04/20/22 at 1733, Until Discontinu ed, Routine, Constipati on [facility] magnesium hydroxide (MILK OF MAGNESIA) 400 mg/5 mL suspension 30 mL 2021-07 004 22:33: 28 Yes 30mL 30 mL, Oral, QDAILYPRN, Starting on Tue04/20/22 at 1733, Until Discontinu ed, Routine, Constipati on [facility] benzocaine- menthol (DERMOPLAST ) 20-0.5 % topical spray 2021-07 004 22:33: 28 Yes Topical, PRN, Starting on Tue04/20/22 at 1733, Until Discontinu ed, Routine, Perineum discomfort [facility] witch Renuka (TUCKS) 50 % topical pad 2021-07 004 22:33: 17 Yes Topical, Q4HPRN, Starting on Tue04/20/22 at 1733, Until Discontinu ed, Routine, rectal/hem orrhoidal pain [facility] fluoxetine HCl (PROZAC ORAL) 2021-07 004 17:24: 43 Yes Take by mouth. [facility] PIB fentaNYL-ro pivacaine 2 mcg/mL-0.1 % (PF) in NS 200 mL epidural infusion RTU 2021-07 0-04 14:11: 00 04-20 23:30 :10 No Epidural, ONCE INTRA PROCEDURE, Starting on Tue04/20/22 at 0911, Until Tue04/20/22 at 1830, Routine, Intra-op [facility] lidocaine-e pinephrine (XYLOCAINE W/EPINEPHRI NE) 1.5 %-1:200,000 injection 2021-07 0 14:10: 00 04-20 23:30 :10 No Epidural, ONCE INTRA PROCEDURE, Starting on Tue04/20/22 at 0910, Until Tue04/20/22 at 1830, Routine, Intra-op [facility] lidocaine 1% (XYLOCAINE) 100 mg/10 mL (1 %) injection 2021-07 004 14:10: 00 04-20 23:30 :10 No Infiltrati on, ONCE INTRA PROCEDURE, Starting on Tue04/20/22 at 0910, Until Tue04/20/22 at 1830, Routine, Intra-op [facility] lactated ringers IV infusion 500 mL 2021-07 0-04 08:45: 00 04-20 10:42 :00 No 500mL at 999 mL/hr, 500 mL, IV Infusion, ONCE, 1 dose, On Tue04/20/22 at 0345, Routine [facility] lactated ringers IV infusion 500 mL 2021-07 0-04 08:43: 17 04-20 22:33 :21 No 500mL at 999 mL/hr, 500 mL, IV Infusion, PRN - SEE INSTRUCTIO NS, Starting on Tue04/20/22 at 0343, Until Tue04/20/22 at 1733, Routine [facility] FENTanyl PF (SUBLIMAZE (PF)) injection 100 mcg 2021-07 0-04 08:43: 17 04-20 22:33 :17 No 100ug 100 mcg, Slow IV Push, Q1HPRN, Starting on Tue04/20/22 at 0343, Until Tue04/20/22 at 1733, Routine, contractio n pain without an epidural and SVE < 8 cm and Cat I strip [facility] oxytocin (PITOCIN) 30 units in NS 500 mL IV infusion 2021-07 004 08:43: 17 04-20 22:33 :21 No 2mU/min at 2-40 mL/hr, IV Infusion, TITRATE, Starting on Tue04/20/22 at 0343, Until Tue04/20/22 at 1733, SHAMAR [facility] sodium citrate-cit xi acid (BICITRA) 500-334 mg/5 mL solution 30 mL 2021-07 0-04 08:43: 17 04-20 12:59 :00 No 30mL 30 mL, Oral, PRE-PROCED URE ONCE, 1 dose, Starting on Tue04/20/22 at 0343, Until Discontinu ed, Routine, Surgery/Pr ocedure [facility] D5W-LR IV infusion 1,000 mL 2021-07 0- 08:43: 17 04-20 22:33 :21 No 1000mL at 1-125 mL/hr, IV Infusion, TITRATE, Starting on Tue04/20/22 at 0343, Until Tue04/20/22 at 1733, Routine [facility] lactated ringers IV infusion 500 mL 2021-07 0-04 08:43: 16 04-20 14:46 :00 No 500mL at 999 mL/hr, 500 mL, IV Infusion, PRN - SEE INSTRUCTIO NS, 1 dose, Starting on Tue04/20/22 at 034, Until Discontinu ed, Routine [facility] 25/iron fum/folic/d tolliver (-1 ORAL) - 10:08: 05 Yes Take by mouth. [facility] 25/iron fum/folic/d tolliver (-1 ORAL) 15 11:23: 13 Yes Take by mouth. [facility] famotidine 40 mg tablet 9-15 00:00: 00 04-21 00:00 :00 No [id number] 40mg Take 1 tablet by mouth in the morning. [facility] clindamycin (CLEOCIN) 100 mg vaginal suppository 8-11 00:00: 00 04-01 00:00 :00 No [id number] 100mg Insert 1 Suppositor y into vagina at bedtime. [facility] famotidine 40 mg tablet 8-09 00:00: 00 04-01 00:00 :00 No [id number] 40mg Take 1 tablet by mouth in the morning. [facility] fluoxetine HCl (PROZAC ORAL) 715 21:39: 50 Yes Take by mouth. [facility] metroNIDAZO LE 500 mg tablet 6-23 00:00: 00 04-01 00:00 :00 No [id number] 500mg Take 1 tablet by mouth every 12 (twelve) hours. [facility] azithromyci n 500 mg tablet 4-01 00:00: 00 04-01 00:00 :00 No [id number] 500mg Take 1 tablet by mouth daily. [facility] metoclopram yamini HCl 10 mg tablet 3-30 00:00: 00 04-21 00:00 :00 No [id number] 10mg Take 1 tablet by mouth every 6 (six) hours as needed for Nausea and Vomiting (N/V). [facility] fluticasone propionate 50 mcg/actuati on nasal spray 2018-07 00:00: 00 04-21 00:00 :00 No [id number] 2{spray } Use 2 Sprays in each nostril daily. [facility] ARIPiprazol e 10 mg tablet 2018-07 00:00: 00 04-21 00:00 :00 No 10mg Take 10 mg by mouth daily. [facility] SERTraline (ZOLOFT) 50 mg tablet 9-25 00:00: 00 2021- 04-21 00:00 :00 No [id number] Take 1 tab po daily [facility] Immunizations Ordered Immunization Name Filled Immunization Name Date Status Comments Source TD 2022-02-02 00:00:00 Completed [facility] TDAP 2022-02-02 00:00:00 Completed [facility] TDAP 2022-02-02 00:00:00 Completed [facility] TDAP 2022-02-02 00:00:00 Completed [facility] TDAP 2022-02-02 00:00:00 Completed [facility] TDAP 2022-02-02 00:00:00 Completed [facility] TDAP 2022-02-02 00:00:00 Completed [facility] TDAP 2022-02-02 00:00:00 Completed [facility] TDAP 2022-02-02 00:00:00 Completed [facility] TDAP 2022-02-02 00:00:00 Completed [facility] TDAP 2022-02-02 00:00:00 Completed [facility] TDAP 2022-02-02 00:00:00 Completed [facility] TDAP 2022-02-02 00:00:00 Completed [facility] TDAP 2022-02-02 00:00:00 Completed [facility] TDAP 2022-02-02 00:00:00 Completed [facility] TDAP 2022-02-02 00:00:00 Completed [facility] TDAP 2022-02-02 00:00:00 Completed [facility] TDAP 2022-02-02 00:00:00 Completed [facility] TDAP 2022-02-02 00:00:00 Completed [facility] TDAP 2022-02-02 00:00:00 Completed [facility] TDAP 2022-02-02 00:00:00 Completed [facility] TDAP 2022-02-02 00:00:00 Completed [facility] TDAP 2022-02-02 00:00:00 Completed [facility] TDAP 2022-02-02 00:00:00 Completed [facility] TDAP 2022-02-02 00:00:00 Completed [facility] TDAP 2022-02-02 00:00:00 Completed [facility] TDAP 2022-02-02 00:00:00 Completed [facility] TDAP 2022-02-02 00:00:00 Completed [facility] TDAP 2022-02-02 00:00:00 Completed [facility] TDAP 2022-02-02 00:00:00 Completed [facility] TDAP 2022-02-02 00:00:00 Completed [facility] TDAP 2022-02-02 00:00:00 Completed [facility] TDAP 2022-02-02 00:00:00 Completed [facility] TDAP 2022-02-02 00:00:00 Completed [facility] TDAP 2022-02-02 00:00:00 Completed [facility] TDAP 2022-02-02 00:00:00 Completed [facility] TDAP 2022-02-02 00:00:00 Completed [facility] TDAP 2022-02-02 00:00:00 Completed [facility] TDAP 2022-02-02 00:00:00 Completed [facility] Influenza Virus Vaccine Quad IM, Preserv and ABX Free 6 MO-64 YRS 2021-10-14 00:00:00 Completed [facility] Influenza Virus Vaccine Quad IM, Preserv and ABX Free 6 MO-64 YRS 2021-10-14 00:00:00 Completed [facility] Influenza Virus Vaccine Quad IM, Preserv and ABX Free 6 MO-64 YRS 2021-10-14 00:00:00 Completed [facility] Influenza Virus Vaccine Quad IM, Preserv and ABX Free 6 MO-64 YRS 2021-10-14 00:00:00 Completed [facility] Influenza Virus Vaccine Quad IM, Preserv and ABX Free 6 MO-64 YRS 2021-10-14 00:00:00 Completed [facility] Influenza Virus Vaccine Quad IM, Preserv and ABX Free 6 MO-64 YRS 2021-10-14 00:00:00 Completed [facility] Influenza Virus Vaccine Quad IM, Preserv and ABX Free 6 MO-64 YRS 2021-10-14 00:00:00 Completed [facility] Influenza Virus Vaccine Quad IM, Preserv and ABX Free 6 MO-64 YRS 2021-10-14 00:00:00 Completed [facility] Influenza Virus Vaccine Quad IM, Preserv and ABX Free 6 MO-64 YRS 2021-10-14 00:00:00 Completed [facility] Influenza Virus Vaccine Quad IM, Preserv and ABX Free 6 MO-64 YRS 2021-10-14 00:00:00 Completed [facility] Influenza Virus Vaccine Quad IM, Preserv and ABX Free 6 MO-64 YRS 2021-10-14 00:00:00 Completed [facility] Influenza Virus Vaccine Quad IM, Preserv and ABX Free 6 MO-64 YRS 2021-10-14 00:00:00 Completed [facility] Influenza Virus Vaccine Quad IM, Preserv and ABX Free 6 MO-64 YRS 2021-10-14 00:00:00 Completed [facility] Influenza Virus Vaccine Quad IM, Preserv and ABX Free 6 MO-64 YRS 2021-10-14 00:00:00 Completed [facility] Influenza Virus Vaccine Quad IM, Preserv and ABX Free 6 MO-64 YRS 2021-10-14 00:00:00 Completed [facility] Influenza Virus Vaccine Quad IM, Preserv and ABX Free 6 MO-64 YRS 2021-10-14 00:00:00 Completed [facility] Influenza Virus Vaccine Quad IM, Preserv and ABX Free 6 MO-64 YRS 2021-10-14 00:00:00 Completed [facility] Influenza Virus Vaccine Quad IM, Preserv and ABX Free 6 MO-64 YRS 2021-10-14 00:00:00 Completed [facility] Influenza Virus Vaccine Quad IM, Preserv and ABX Free 6 MO-64 YRS 2021-10-14 00:00:00 Completed [facility] Influenza Virus Vaccine Quad IM, Preserv and ABX Free 6 MO-64 YRS 2021-10-14 00:00:00 Completed [facility] Influenza Virus Vaccine Quad IM, Preserv and ABX Free 6 MO-64 YRS 2021-10-14 00:00:00 Completed [facility] Influenza Virus Vaccine Quad IM, Preserv and ABX Free 6 MO-64 YRS 2021-10-14 00:00:00 Completed [facility] Influenza Virus Vaccine Quad IM, Preserv and ABX Free 6 MO-64 YRS 2021-10-14 00:00:00 Completed [facility] Influenza Virus Vaccine Quad IM, Preserv and ABX Free 6 MO-64 YRS 2021-10-14 00:00:00 Completed [facility] Influenza Virus Vaccine Quad IM, Preserv and ABX Free 6 MO-64 YRS 2021-10-14 00:00:00 Completed [facility] Influenza Virus Vaccine Quad IM, Preserv and ABX Free 6 MO-64 YRS 2021-10-14 00:00:00 Completed [facility] Influenza Virus Vaccine Quad IM, Preserv and ABX Free 6 MO-64 YRS 2021-10-14 00:00:00 Completed [facility] Influenza Virus Vaccine Quad IM, Preserv and ABX Free 6 MO-64 YRS 2021-10-14 00:00:00 Completed [facility] Influenza Virus Vaccine Quad IM, Preserv and ABX Free 6 MO-64 YRS 2021-10-14 00:00:00 Completed [facility] Influenza Virus Vaccine Quad IM, Preserv and ABX Free 6 MO-64 2021-10-14 00:00:00 Completed [facility] Influenza Virus Vaccine Quad IM, Preserv and ABX Free 6 MO-64 YRS 2021-10-14 00:00:00 Completed [facility] Influenza Virus Vaccine Quad IM, Preserv and ABX Free 6 MO-64 YRS 2021-10-14 00:00:00 Completed [facility] Influenza Virus Vaccine Quad IM, Preserv and ABX Free 6 MO-64 YRS 2021-10-14 00:00:00 Completed [facility] Influenza Virus Vaccine Quad IM, Preserv and ABX Free 6 MO-64 2021-10-14 00:00:00 Completed [facility] Influenza Virus Vaccine Quad IM, Preserv and ABX Free 6 MO-64 YRS 2021-10-14 00:00:00 Completed [facility] Influenza Virus Vaccine Quad IM, Preserv and ABX Free 6 MO-64 30 00:00:00 Completed [facility] Influenza Virus Vaccine Quad IM, Preserv and ABX Free 6 MO-64 YRS 2021-10-14 00:00:00 Completed [facility] Influenza Virus Vaccine Quad IM, Preserv and ABX Free 6 MO-64 YRS (FLUCELVAX) 2021-10-14 00:00:00 Completed [facility] Influenza Virus Vaccine Quad IM, Preserv and ABX Free 6 MO-64 YRS (FLUCELVAX) 2021-10-14 00:00:00 Completed [facility] Influenza Virus Vaccine Quad .5 mL IM 6+ MO 2019-04-25 00:00:00 Completed [facility] Influenza Virus Vaccine Quad .5 mL IM 6+ MO 2019-04-25 00:00:00 Completed [facility] Influenza Virus Vaccine Quad .5 mL IM 6+ MO 2019-04-25 00:00:00 Completed [facility] Influenza Virus Vaccine Quad .5 mL IM 6+ MO 2019-04-25 00:00:00 Completed [facility] Influenza Virus Vaccine Quad .5 mL IM 6+ MO 2019-04-25 00:00:00 Completed [facility] Influenza Virus Vaccine Quad .5 mL IM 6+ MO 2019-04-25 00:00:00 Completed [facility] Influenza Virus Vaccine Quad .5 mL IM 6+ MO 2019-04-25 00:00:00 Completed [facility] Influenza Virus Vaccine Quad .5 mL IM 6+ MO 2019-04-25 00:00:00 Completed [facility] Influenza Virus Vaccine Quad .5 mL IM 6+ MO 2019-04-25 00:00:00 Completed [facility] Influenza Virus Vaccine Quad .5 mL IM 6+ MO 2019-04-25 00:00:00 Completed [facility] Influenza Virus Vaccine Quad .5 mL IM 6+ MO 2019-04-25 00:00:00 Completed [facility] Influenza Virus Vaccine Quad .5 mL IM 6+ MO 2019-04-25 00:00:00 Completed [facility] Influenza Virus Vaccine Quad .5 mL IM 6+ MO 2019-04-25 00:00:00 Completed [facility] Influenza Virus Vaccine Quad .5 mL IM 6+ MO 2019-04-25 00:00:00 Completed [facility] Influenza Virus Vaccine Quad .5 mL IM 6+ MO 2019-04-25 00:00:00 Completed [facility] Influenza Virus Vaccine Quad .5 mL IM 6+ MO 2019-04-25 00:00:00 Completed [facility] Influenza Virus Vaccine Quad .5 mL IM 6+ MO 2019-04-25 00:00:00 Completed [facility] Influenza Virus Vaccine Quad .5 mL IM 6+ MO 2019-04-25 00:00:00 Completed [facility] Influenza Virus Vaccine Quad .5 mL IM 6+ MO 2019-04-25 00:00:00 Completed [facility] Influenza Virus Vaccine Quad .5 mL IM 6+ MO 2019-04-25 00:00:00 Completed [facility] Influenza Virus Vaccine Quad .5 mL IM 6+ MO 2019-04-25 00:00:00 Completed [facility] Influenza Virus Vaccine Quad .5 mL IM 6+ MO 2019-04-25 00:00:00 Completed [facility] Influenza Virus Vaccine Quad .5 mL IM 6+ MO 2019-04-25 00:00:00 Completed [facility] Influenza Virus Vaccine Quad .5 mL IM 6+ MO 2019-04-25 00:00:00 Completed [facility] Influenza Virus Vaccine Quad .5 mL IM 6+ MO 2019-04-25 00:00:00 Completed [facility] Influenza Virus Vaccine Quad .5 mL IM 6+ MO 2019-04-25 00:00:00 Completed [facility] Influenza Virus Vaccine Quad .5 mL IM 6+ MO 2019-04-25 00:00:00 Completed [facility] Influenza Virus Vaccine Quad .5 mL IM 6+ MO 2019-04-25 00:00:00 Completed [facility] Influenza Virus Vaccine Quad .5 mL IM 6+ MO 2019-04-25 00:00:00 Completed [facility] Influenza Virus Vaccine Quad .5 mL IM 6+ MO 2019-04-25 00:00:00 Completed [facility] Influenza Virus Vaccine Quad .5 mL IM 6+ MO 2019-04-25 00:00:00 Completed [facility] Influenza Virus Vaccine Quad .5 mL IM 6+ MO 2019-04-25 00:00:00 Completed [facility] Influenza Virus Vaccine Quad .5 mL IM 6+ MO 2019-04-25 00:00:00 Completed [facility] Influenza Virus Vaccine Quad .5 mL IM 6+ MO 2019-04-25 00:00:00 Completed [facility] Influenza Virus Vaccine Quad .5 mL IM 6+ MO 2019-04-25 00:00:00 Completed [facility] Influenza Virus Vaccine Quad .5 mL IM 6+ MO 2019-04-25 00:00:00 Completed [facility] Influenza Virus Vaccine Quad .5 mL IM 6+ MO 2019-04-25 00:00:00 Completed [facility] Influenza Virus Vaccine Quad .5 mL IM 6+ MO (FLUZONE/FLULAVAL/F LUARIX) 2019-04-25 00:00:00 Completed [facility] Influenza Virus Vaccine Quad .5 mL IM 6+ MO (FLUZONE/FLULAVAL/F LUARIX) 2019-04-25 00:00:00 Completed [facility] Influenza Virus Vaccine Quad .5 mL IM 6+ MO 2018-11-07 00:00:00 Completed [facility] Influenza Virus Vaccine Quad .5 mL IM 6+ MO 2018-11-07 00:00:00 Completed [facility] Influenza Virus Vaccine Quad .5 mL IM 6+ MO 2018-11-07 00:00:00 Completed [facility] Influenza Virus Vaccine Quad .5 mL IM 6+ MO 2018-11-07 00:00:00 Completed [facility] Influenza Virus Vaccine Quad .5 mL IM 6+ MO 2018-11-07 00:00:00 Completed [facility] Influenza Virus Vaccine Quad .5 mL IM 6+ MO 2018-11-07 00:00:00 Completed [facility] Influenza Virus Vaccine Quad .5 mL IM 6+ MO 2018-11-07 00:00:00 Completed [facility] Influenza Virus Vaccine Quad .5 mL IM 6+ MO 2018-11-07 00:00:00 Completed [facility] Influenza Virus Vaccine Quad .5 mL IM 6+ MO 2018-11-07 00:00:00 Completed [facility] Influenza Virus Vaccine Quad .5 mL IM 6+ MO 2018-11-07 00:00:00 Completed [facility] Influenza Virus Vaccine Quad .5 mL IM 6+ MO 2018-11-07 00:00:00 Completed [facility] Influenza Virus Vaccine Quad .5 mL IM 6+ MO 2018-11-07 00:00:00 Completed [facility] Influenza Virus Vaccine Quad .5 mL IM 6+ MO 2018-11-07 00:00:00 Completed [facility] Influenza Virus Vaccine Quad .5 mL IM 6+ MO 2018-11-07 00:00:00 Completed [facility] Influenza Virus Vaccine Quad .5 mL IM 6+ MO 2018-11-07 00:00:00 Completed [facility] Influenza Virus Vaccine Quad .5 mL IM 6+ MO 2018-11-07 00:00:00 Completed [facility] Influenza Virus Vaccine Quad .5 mL IM 6+ MO 2018-11-07 00:00:00 Completed [facility] Influenza Virus Vaccine Quad .5 mL IM 6+ MO 2018-11-07 00:00:00 Completed [facility] Influenza Virus Vaccine Quad .5 mL IM 6+ MO 2018-11-07 00:00:00 Completed [facility] Influenza Virus Vaccine Quad .5 mL IM 6+ MO 2018-11-07 00:00:00 Completed [facility] Influenza Virus Vaccine Quad .5 mL IM 6+ MO 2018-11-07 00:00:00 Completed [facility] Influenza Virus Vaccine Quad .5 mL IM 6+ MO 2018-11-07 00:00:00 Completed [facility] Influenza Virus Vaccine Quad .5 mL IM 6+ MO 2018-11-07 00:00:00 Completed [facility] Influenza Virus Vaccine Quad .5 mL IM 6+ MO 2018-11-07 00:00:00 Completed [facility] Influenza Virus Vaccine Quad .5 mL IM 6+ MO 2018-11-07 00:00:00 Completed [facility] Influenza Virus Vaccine Quad .5 mL IM 6+ MO 2018-11-07 00:00:00 Completed [facility] Influenza Virus Vaccine Quad .5 mL IM 6+ MO 2018-11-07 00:00:00 Completed [facility] Influenza Virus Vaccine Quad .5 mL IM 6+ MO 2018-11-07 00:00:00 Completed [facility] Influenza Virus Vaccine Quad .5 mL IM 6+ MO 2018-11-07 00:00:00 Completed [facility] Influenza Virus Vaccine Quad .5 mL IM 6+ MO 2018-11-07 00:00:00 Completed [facility] Influenza Virus Vaccine Quad .5 mL IM 6+ MO 2018-11-07 00:00:00 Completed [facility] Influenza Virus Vaccine Quad .5 mL IM 6+ MO 2018-11-07 00:00:00 Completed [facility] Influenza Virus Vaccine Quad .5 mL IM 6+ MO 2018-11-07 00:00:00 Completed [facility] Influenza Virus Vaccine Quad .5 mL IM 6+ MO 2018-11-07 00:00:00 Completed [facility] Influenza Virus Vaccine Quad .5 mL IM 6+ MO 2018-11-07 00:00:00 Completed [facility] Influenza Virus Vaccine Quad .5 mL IM 6+ MO 2018-11-07 00:00:00 Completed [facility] Influenza Virus Vaccine Quad .5 mL IM 6+ MO 2018-11-07 00:00:00 Completed [facility] Influenza Virus Vaccine Quad .5 mL IM 6+ MO (FLUZONE/FLULAVAL/F LUARIX) 2018-11-07 00:00:00 Completed [facility] Influenza Virus Vaccine Quad .5 mL IM 6+ MO (FLUZONE/FLULAVAL/F LUARIX) 2018-11-07 00:00:00 Completed TDAP 2017-06-13 00:00:00 Completed [facility] TDAP 2017-06-13 00:00:00 Completed [facility] TDAP 2017-06-13 00:00:00 Completed [facility] TDAP 2017-06-13 00:00:00 Completed [facility] TDAP 2017-06-13 00:00:00 Completed [facility] TDAP 2017-06-13 00:00:00 Completed [facility] TDAP 2017-06-13 00:00:00 Completed [facility] TDAP 2017-06-13 00:00:00 Completed [facility] TDAP 2017-06-13 00:00:00 Completed [facility] TDAP 2017-06-13 00:00:00 Completed [facility] TDAP 2017-06-13 00:00:00 Completed [facility] TDAP 2017-06-13 00:00:00 Completed [facility] TDAP 2017-06-13 00:00:00 Completed [facility] TDAP 2017-06-13 00:00:00 Completed [facility] TDAP 2017-06-13 00:00:00 Completed [facility] TDAP 2017-06-13 00:00:00 Completed [facility] TDAP 2017-06-13 00:00:00 Completed [facility] TDAP 2017-06-13 00:00:00 Completed [facility] TDAP 2017-06-13 00:00:00 Completed [facility] TDAP 2017-06-13 00:00:00 Completed [facility] TDAP 2017-06-13 00:00:00 Completed [facility] TDAP 2017-06-13 00:00:00 Completed [facility] TDAP 2017-06-13 00:00:00 Completed [facility] TDAP 2017-06-13 00:00:00 Completed [facility] TDAP 2017-06-13 00:00:00 Completed [facility] TDAP 2017-06-13 00:00:00 Completed [facility] TDAP 2017-06-13 00:00:00 Completed [facility] TDAP 2017-06-13 00:00:00 Completed [facility] TDAP 2017-06-13 00:00:00 Completed [facility] TDAP 2017-06-13 00:00:00 Completed [facility] TDAP 2017-06-13 00:00:00 Completed [facility] TDAP 2017-06-13 00:00:00 Completed [facility] TDAP 2017-06-13 00:00:00 Completed [facility] TDAP 2017-06-13 00:00:00 Completed [facility] TDAP 2017-06-13 00:00:00 Completed [facility] TDAP 2017-06-13 00:00:00 Completed [facility] TDAP 2017-06-13 00:00:00 Completed [facility] TDAP 2017-06-13 00:00:00 Completed [facility] TDAP 2017-06-13 00:00:00 Completed Influenza Virus Vaccine Quad IM 3+ YRS 2017-05-23 00:00:00 Completed [facility] Influenza Virus Vaccine Quad IM 3+ YRS 2017-05-23 00:00:00 Completed [facility] Influenza Virus Vaccine Quad IM 3+ YRS 2017-05-23 00:00:00 Completed [facility] Influenza Virus Vaccine Quad IM 3+ YRS 2017-05-23 00:00:00 Completed [facility] Influenza Virus Vaccine Quad IM 3+ YRS 2017-05-23 00:00:00 Completed [facility] Influenza Virus Vaccine Quad IM 3+ YRS 2017-05-23 00:00:00 Completed [facility] Influenza Virus Vaccine Quad IM 3+ YRS 2017-05-23 00:00:00 Completed [facility] Influenza Virus Vaccine Quad IM 3+ YRS 2017-05-23 00:00:00 Completed [facility] Influenza Virus Vaccine Quad IM 3+ YRS 2017-05-23 00:00:00 Completed [facility] Influenza Virus Vaccine Quad IM 3+ YRS 2017-05-23 00:00:00 Completed [facility] Influenza Virus Vaccine Quad IM 3+ YRS 2017-05-23 00:00:00 Completed [facility] Influenza Virus Vaccine Quad IM 3+ YRS 2017-05-23 00:00:00 Completed [facility] Influenza Virus Vaccine Quad IM 3+ YRS 2017-05-23 00:00:00 Completed [facility] Influenza Virus Vaccine Quad IM 3+ YRS 2017-05-23 00:00:00 Completed [facility] Influenza Virus Vaccine Quad IM 3+ YRS 2017-05-23 00:00:00 Completed [facility] Influenza Virus Vaccine Quad IM 3+ YRS 2017-05-23 00:00:00 Completed [facility] Influenza Virus Vaccine Quad IM 3+ YRS 2017-05-23 00:00:00 Completed [facility] Influenza Virus Vaccine Quad IM 3+ YRS 2017-05-23 00:00:00 Completed [facility] Influenza Virus Vaccine Quad IM 3+ YRS 2017-05-23 00:00:00 Completed [facility] Influenza Virus Vaccine Quad IM 3+ YRS 2017-05-23 00:00:00 Completed [facility] Influenza Virus Vaccine Quad IM 3+ YRS 2017-05-23 00:00:00 Completed [facility] Influenza Virus Vaccine Quad IM 3+ YRS 2017-05-23 00:00:00 Completed [facility] Influenza Virus Vaccine Quad IM 3+ YRS 2017-05-23 00:00:00 Completed [facility] Influenza Virus Vaccine Quad IM 3+ YRS 2017-05-23 00:00:00 Completed [facility] Influenza Virus Vaccine Quad IM 3+ YRS 2017-05-23 00:00:00 Completed [facility] Influenza Virus Vaccine Quad IM 3+ YRS 2017-05-23 00:00:00 Completed [facility] Influenza Virus Vaccine Quad IM 3+ YRS 2017-05-23 00:00:00 Completed [facility] Influenza Virus Vaccine Quad IM 3+ YRS 2017-05-23 00:00:00 Completed [facility] Influenza Virus Vaccine Quad IM 3+ YRS 2017-05-23 00:00:00 Completed [facility] Influenza Virus Vaccine Quad IM 3+ YRS 2017-05-23 00:00:00 Completed [facility] Influenza Virus Vaccine Quad IM 3+ YRS 2017-05-23 00:00:00 Completed [facility] Influenza Virus Vaccine Quad IM 3+ YRS 2017-05-23 00:00:00 Completed [facility] Influenza Virus Vaccine Quad IM 3+ YRS 2017-05-23 00:00:00 Completed [facility] Influenza Virus Vaccine Quad IM 3+ YRS 2017-05-23 00:00:00 Completed [facility] Influenza Virus Vaccine Quad IM 3+ YRS 2017-05-23 00:00:00 Completed [facility] Influenza Virus Vaccine Quad IM 3+ YRS 2017-05-23 00:00:00 Completed [facility] Influenza Virus Vaccine Quad IM 3+ YRS 2017-05-23 00:00:00 Completed [facility] Influenza Virus Vaccine Quad IM 3+ YRS 2017-05-23 00:00:00 Completed [facility] Influenza Virus Vaccine Quad IM 3+ YRS 2017-05-23 00:00:00 Completed [facility] Influenza Virus Vaccine Quad IM 3+ YRS Unknown Completed [facility] TDAP Unknown Completed [facility] Influenza Virus Vaccine Quad IM, Preserv and ABX Free 6 MO-64 YRS (FLUCELVAX) Unknown Completed [facility] Influenza Virus Vaccine Quad IM 3+ YRS Unknown Completed [facility] TDAP Unknown Completed [facility] [facility] Vaccine Quad IM, Preserv and ABX Free 6 MO-64 YRS (FLUCELVAX) Unknown Completed [facility] Influenza Virus Vaccine Quad IM 3+ YRS Unknown Completed [facility] TDAP Unknown Completed [facility] Influenza Virus Vaccine Quad IM, Preserv and ABX Free 6 MO-64 YRS (FLUCELVAX) Unknown Completed [facility] Influenza Virus Vaccine Quad IM 3+ YRS Unknown Completed [facility] TDAP Unknown Completed [facility] Influenza Virus Vaccine Quad IM, Preserv and ABX Free 6 MO-64 YRS (FLUCELVAX) Unknown Completed [facility] Influenza Virus Vaccine Quad IM 3+ YRS Unknown Completed [facility] TDAP Unknown Completed [facility] Influenza Virus Vaccine Quad IM, Preserv and ABX Free 6 MO-64 YRS (FLUCELVAX) Unknown Completed [facility] Influenza Virus Vaccine Quad IM 3+ YRS Unknown Completed [facility] TDAP Unknown Completed [facility] Influenza Virus Vaccine Quad IM, Preserv and ABX Free 6 MO-64 YRS (FLUCELVAX) Unknown Completed [facility] Influenza Virus Vaccine Quad IM 3+ YRS Unknown Completed [facility] TDAP Unknown Completed [facility] Influenza Virus Vaccine Quad IM, Preserv and ABX Free 6 MO-64 YRS (FLUCELVAX) Unknown Completed [facility] Influenza Virus Vaccine Quad IM 3+ YRS Unknown Completed [facility] TDAP Unknown Completed [facility] Influenza Virus Vaccine Quad IM, Preserv and ABX Free 6 MO-64 YRS (FLUCELVAX) Unknown Completed [facility] Influenza Virus Vaccine Quad IM 3+ YRS Unknown Completed [facility] TDAP Unknown Completed [facility] Influenza Virus Vaccine Quad IM, Preserv and ABX Free 6 MO-64 YRS (FLUCELVAX) Unknown Completed [facility] Influenza Virus Vaccine Quad IM 3+ YRS Unknown Completed [facility] TDAP Unknown Completed [facility] Influenza Virus Vaccine Quad IM, Preserv and ABX Free 6 MO-64 YRS (FLUCELVAX) Unknown Completed [facility] Influenza Virus Vaccine Quad IM 3+ YRS Unknown Completed [facility] TDAP Unknown Completed [facility] Influenza Virus Vaccine Quad IM, Preserv and ABX Free 6 MO-64 YRS (FLUCELVAX) Unknown Completed [facility] Influenza Virus Vaccine Quad IM 3+ YRS Unknown Completed [facility] TDAP Unknown Completed [facility] Influenza Virus Vaccine Quad IM, Preserv and ABX Free 6 MO-64 YRS (FLUCELVAX) Unknown Completed [facility] Influenza Virus Vaccine Quad IM 3+ YRS Unknown Completed [facility] TDAP Unknown Completed [facility] Influenza Virus Vaccine Quad IM, Preserv and ABX Free 6 MO-64 YRS (FLUCELVAX) Unknown Completed [facility] Influenza Virus Vaccine Quad IM 3+ YRS Unknown Completed [facility] TDAP Unknown Completed [facility] Influenza Virus Vaccine Quad IM, Preserv and ABX Free 6 MO-64 YRS (FLUCELVAX) Unknown Completed [facility] Influenza Virus Vaccine Quad IM 3+ YRS Unknown Completed [facility] TDAP Unknown Completed [facility] Influenza Virus Vaccine Quad IM, Preserv and ABX Free 6 MO-64 YRS (FLUCELVAX) Unknown Completed [facility] Influenza Virus Vaccine Quad IM 3+ YRS Unknown Completed [facility] TDAP Unknown Completed [facility] Influenza Virus Vaccine Quad IM, Preserv and ABX Free 6 MO-64 YRS (FLUCELVAX) Unknown Completed [facility] Influenza Virus Vaccine Quad IM 3+ YRS Unknown Completed [facility] TDAP Unknown Completed [facility] Influenza Virus Vaccine Quad IM, Preserv and ABX Free 6 MO-64 YRS (FLUCELVAX) Unknown Completed [facility] Influenza Virus Vaccine Quad IM 3+ YRS Unknown Completed [facility] TDAP Unknown Completed [facility] Influenza Virus Vaccine Quad IM, Preserv and ABX Free 6 MO-64 YRS (FLUCELVAX) Unknown Completed [facility] Influenza Virus Vaccine Quad IM 3+ YRS Unknown Completed [facility] TDAP Unknown Completed [facility] Influenza Virus Vaccine Quad IM, Preserv and ABX Free 6 MO-64 YRS (FLUCELVAX) Unknown Completed [facility] Influenza Virus Vaccine Quad IM 3+ YRS Unknown Completed [facility] TDAP Unknown Completed [facility] Influenza Virus Vaccine Quad IM, Preserv and ABX Free 6 MO-64 YRS (FLUCELVAX) Unknown Completed [facility] Vital Signs Vital Name Observation Time Observation Value Comments S alexace Systolic blood pressure 2024-07-28 20:33:00 110 mm[Hg] [facility] Diastolic blood pressure 2024-07-28 20:33:00 62 mm[Hg] [facility] Heart rate 2024-07-28 20:33:00 80 /min [facility] Body temperature 2024-07-28 20:33:00 37.11 [facility] Respiratory rate 2024-07-28 20:33:00 18 /min [facility] Body height 2024-07-28 20:33:00 154.9 cm [facility] Body weight 2024-07-28 20:33:00 52.164 kg [facility] BMI 2024-07-28 20:33:00 21.73 kg/m2 [facility] Oxygen saturation in Arterial blood by Pulse oximetry 2024-07-28 20:33:00 100 /min [facility] Systolic blood pressure 2024-06-03 03:33:00 123 mm[Hg] [facility] Diastolic blood pressure 2024-06-03 03:33:00 88 mm[Hg] [facility] Heart rate 2024-06-03 03:33:00 86 /min [facility] Respiratory rate 2024-06-03 03:33:00 16 /min [facility] Oxygen saturation in Arterial blood by Pulse oximetry 2024-06-03 03:33:00 100 /min [facility] Body temperature 2024-06-03 01:13:00 36.89 [facility] Body height 2024-06-03 01:13:00 154.9 cm [facility] Body weight 2024-06-03 01:13:00 45.36 kg [facility] BMI 2024-06-03 01:13:00 18.89 kg/m2 [facility] Systolic blood pressure 2023-05-23 19:00:00 103 mm[Hg] [facility] Diastolic blood pressure 2023-05-23 19:00:00 69 mm[Hg] [facility] Heart rate 2023-05-23 19:00:00 59 /min [facility] Body temperature 2023-05-23 19:00:00 36.94 [facility] Respiratory rate 2023-05-23 19:00:00 18 /min [facility] Body weight 2023-05-23 19:00:00 63.413 kg [facility] BMI 2023-05-23 19:00:00 26.41 kg/m2 [facility] Systolic blood pressure 2023-05-15 05:00:00 113 mm[Hg] [facility] Diastolic blood pressure 2023-05-15 05:00:00 76 mm[Hg] [facility] Heart rate 2023-05-15 05:00:00 67 /min [facility] Respiratory rate 2023-05-15 05:00:00 13 /min [facility] Oxygen saturation in Arterial blood by Pulse oximetry 2023-05-15 05:00:00 99 /min [facility] Body temperature 2023-05-15 04:30:00 36.94 [facility] Body height 2023-05-15 03:41:00 154.9 cm [facility] Body weight 2023-05-15 03:41:00 63.504 kg [facility] BMI 2023-05-15 03:41:00 26.45 kg/m2 [facility] Systolic blood pressure 2023-05-14 12:30:00 116 mm[Hg] [facility] Diastolic blood pressure 2023-05-14 12:30:00 60 mm[Hg] [facility] Heart rate 2023-05-14 12:30:00 68 /min [facility] Body temperature 2023-05-14 12:30:00 36.89 [facility] Respiratory rate 2023-05-14 12:30:00 18 /min [facility] Oxygen saturation in Arterial blood by Pulse oximetry 2023-05-14 09:21:00 99 /min [facility] Body height 2023-05-13 19:48:00 154.9 cm [facility] Body weight 2023-05-13 19:48:00 63.504 kg [facility] BMI 2023-05-13 19:48:00 26.45 kg/m2 [facility] Systolic blood pressure 2023-05-14 01:59:00 116 mm[Hg] [facility] Diastolic blood pressure 2023-05-14 01:59:00 66 mm[Hg] [facility] Heart rate 2023-05-14 01:59:00 65 /min [facility] Respiratory rate 2023-05-14 01:59:00 8 /min [facility] Oxygen saturation in Arterial blood by Pulse oximetry 2023-05-14 01:59:00 100 /min [facility] Systolic blood pressure 2023-05-14 01:59:00 116 mm[Hg] [facility] Diastolic blood pressure 2023-05-14 01:59:00 66 mm[Hg] [facility] Heart rate 2023-05-14 01:59:00 65 /min [facility] Respiratory rate 2023-05-14 01:59:00 8 /min [facility] Oxygen saturation in Arterial blood by Pulse oximetry 2023-05-14 01:59:00 100 /min [facility] Body temperature 2023-05-13 23:43:00 37 [facility] Body temperature 2023-05-13 23:43:00 37 [facility] Body height 2023-05-13 19:48:00 154.9 cm [facility] Body weight 2023-05-13 19:48:00 63.504 kg [facility] BMI 2023-05-13 19:48:00 26.45 kg/m2 [facility] Body height 2023-05-13 19:48:00 154.9 cm [facility] Body weight 2023-05-13 19:48:00 63.504 kg [facility] BMI 2023-05-13 19:48:00 26.45 kg/m2 [facility] Systolic blood pressure 2023-05-11 00:10:00 110 mm[Hg] [facility] Diastolic blood pressure 2023-05-11 00:10:00 69 mm[Hg] [facility] Heart rate 2023-05-11 00:10:00 70 /min [facility] Body temperature 2023-05-11 00:10:00 37.17 [facility] Respiratory rate 2023-05-11 00:10:00 16 /min [facility] Oxygen saturation in Arterial blood by Pulse oximetry 2023-05-11 00:10:00 96 /min [facility] Body height 2023-05-10 21:04:00 154.9 cm [facility] Body weight 2023-05-10 21:04:00 63.504 kg [facility] BMI 2023-05-10 21:04:00 26.45 kg/m2 [facility] Systolic blood pressure 2023-05-10 20:31:00 107 mm[Hg] [facility] Diastolic blood pressure 2023-05-10 20:31:00 65 mm[Hg] [facility] Heart rate 2023-05-10 20:31:00 69 /min [facility] Body temperature 2023-05-10 20:31:00 36.78 [facility] Respiratory rate 2023-05-10 20:31:00 17 /min [facility] Body height 2023-05-10 20:31:00 154.9 cm [facility] Body weight 2023-05-10 20:31:00 63.594 kg [facility] BMI 2023-05-10 20:31:00 26.49 kg/m2 [facility] Systolic blood pressure 2023-03-15 17:53:00 104 mm[Hg] [facility] Diastolic blood pressure 2023-03-15 17:53:00 58 mm[Hg] [facility] Heart rate 2023-03-15 17:53:00 80 /min [facility] Body temperature 2023-03-15 17:53:00 36.72 [facility] Respiratory rate 2023-03-15 17:53:00 18 /min [facility] Body height 2023-03-15 17:53:00 154.9 cm [facility] Body weight 2023-03-15 17:53:00 59.421 kg [facility] BMI 2023-03-15 17:53:00 24.75 kg/m2 [facility] Oxygen saturation in Arterial blood by Pulse oximetry 2023-03-15 17:53:00 98 /min [facility] Systolic blood pressure 2023-03-04 23:23:00 112 mm[Hg] [facility] Diastolic blood pressure 2023-03-04 23:23:00 59 mm[Hg] [facility] Heart rate 2023-03-04 23:23:00 77 /min [facility] Body temperature 2023-03-04 23:23:00 36.94 [facility] Body height 2023-03-04 23:23:00 154.9 cm [facility] Body weight 2023-03-04 23:23:00 59.648 kg [facility] BMI 2023-03-04 23:23:00 24.85 kg/m2 [facility] Oxygen saturation in Arterial blood by Pulse oximetry 2023-03-04 23:23:00 95 /min [facility] Oxygen saturation in Arterial blood by Pulse oximetry 2023-03-01 16:55:00 98 /min [facility] Systolic blood pressure 2023-03-01 16:51:00 115 mm[Hg] [facility] Diastolic blood pressure 2023-03-01 16:51:00 69 mm[Hg] [facility] Heart rate 2023-03-01 16:51:00 55 /min [facility] Respiratory rate 2023-03-01 16:51:00 14 /min [facility] Body temperature 2023-03-01 15:40:00 36.11 [facility] Body height 2023-02-22 18:00:00 154.9 cm [facility] Body weight 2023-02-22 18:00:[address] [facility] BMI 2023-02-22 18:00:00 24.56 kg/m2 [facility] Oxygen saturation in Arterial blood by Pulse oximetry 2023-03-01 16:55:00 98 /min [facility] Systolic blood pressure 2023-03-01 16:51:00 115 mm[Hg] [facility] Diastolic blood pressure 2023-03-01 16:51:00 69 mm[Hg] [facility] Heart rate 2023-03-01 16:51:00 55 /min [facility] Respiratory rate 2023-03-01 16:51:00 14 /min [facility] Body temperature 2023-03-01 15:40:00 36.11 [facility] Body height 2023-02-22 18:00:00 154.9 cm [facility] Body weight 2023-02-22 18:00:00 58.968 kg [facility] BMI 2023-02-22 18:00:00 24.56 kg/m2 [facility] Systolic blood pressure 2023-02-03 13:22:00 105 mm[Hg] [facility] Diastolic blood pressure 2023-02-03 13:22:00 65 mm[Hg] [facility] Heart rate 2023-02-03 13:22:00 76 /min [facility] Body height 2023-02-03 13:22:[address] [facility] Body weight 2023-02-03 13:22:[address] [facility] BMI 2023-02-03 13:22:00 25.13 kg/m2 [facility] Oxygen saturation in Arterial blood by Pulse oximetry 2023-02-03 13:22:00 99 /min [facility] Systolic blood pressure 2023-01-15 00:33:00 118 mm[Hg] [facility] Diastolic blood pressure 2023-01-15 00:33:00 74 mm[Hg] [facility] Heart rate 2023-01-15 00:33:00 66 /min [facility] Body temperature 2023-01-15 00:33:00 37 [facility] Respiratory rate 2023-01-15 00:33:00 16 /min [facility] Body height 2023-01-15 00:33:00 154.9 cm [facility] 2023-01-15 00:33:00 60.283 [facility] 2023-01-15 00:33:00 25.11 kg/m2 [facility] Oxygen saturation in Arterial blood by Pulse oximetry 2023-01-15 00:33:00 98 /min [facility] Systolic blood pressure 2022-12-29 19:45:00 109 mm[Hg] [facility] Diastolic blood pressure 2022-12-29 19:45:00 70 mm[Hg] [facility] Heart rate 2022-12-29 19:45:00 68 /min [facility] Body temperature 2022-12-29 19:45:00 36.89 [facility] Respiratory rate 2022-12-29 19:45:00 18 /min [facility] Body height 2022-12-29 19:45:[address] [facility] Body weight 2022-12-29 19:45:[address] [facility] BMI 2022-12-29 19:45:00 25.13 kg/m2 [facility] Systolic blood pressure 2022-11-12 15:34:00 104 mm[Hg] [facility] Diastolic blood pressure 2022-11-12 15:34:00 67 mm[Hg] [facility] Heart rate 2022-11-12 15:34:00 62 /min [facility] 2022-11-12 15:34:00 37.11 [facility] Body height 2022-11-12 15:34:00 154.9 cm [facility] weight 2022-11-12 15:34:00 63.05 kg [facility] 2022-11-12 15:34:00 26.26 kg/m2 [facility] Systolic blood pressure 2022-09-17 17:01:00 107 mm[Hg] [facility] Diastolic blood pressure 2022-09-17 17:01:00 66 mm[Hg] [facility] Heart rate 2022-09-17 17:01:00 65 /min [facility] Respiratory rate 2022-09-17 17:01:00 18 /min [facility] Body height 2022-09-17 17:01:00 154.9 cm [facility] Body weight 2022-09-17 17:01:00 68.04 kg [facility] BMI 2022-09-17 17:01:00 28.34 kg/m2 [facility] Systolic blood pressure 2022-07-07 16:50:00 96 mm[Hg] [facility] Diastolic blood pressure 2022-07-07 16:50:00 63 mm[Hg] [facility] Heart rate 2022-07-07 16:50:00 64 /min [facility] Body temperature 2022-07-07 16:50:00 36.72 [facility] Respiratory rate 2022-07-07 16:50:00 18 /min [facility] Body height 2022-07-07 16:50:00 154.9 cm [facility] Body weight 2022-07-07 16:50:00 70.308 kg [facility] BMI 2022-07-07 16:50:00 29.29 kg/m2 [facility] Systolic blood pressure 2022-06-09 15:03:00 98 mm[Hg] [facility] Diastolic blood pressure 2022-06-09 15:03:00 65 mm[Hg] [facility] Heart rate 2022-06-09 15:03:00 79 /min [facility] Body temperature 2022-06-09 15:03:00 36.44 [facility] Respiratory rate 2022-06-09 15:03:00 18 /min [facility] Body height 2022-06-09 15:03:00 154.9 cm [facility] Body weight 2022-06-09 15:03:00 71.215 kg [facility] BMI 2022-06-09 15:03:00 29.66 kg/m2 [facility] Systolic blood pressure 2022-05-12 18:02:00 101 mm[Hg] [facility] Diastolic blood pressure 2022-05-12 18:02:00 67 mm[Hg] [facility] Heart rate 2022-05-12 18:02:00 53 /min [facility] Body temperature 2022-05-12 18:02:00 36.61 [facility] Respiratory rate 2022-05-12 18:02:00 16 /min [facility] Body height 2022-05-12 18:02:00 154.9 cm [facility] Body weight 2022-05-12 18:02:00 73.936 kg [facility] BMI 2022-05-12 18:02:00 30.80 kg/m2 [facility] Systolic blood pressure 2022-04-22 12:18:00 106 mm[Hg] [facility] Diastolic blood pressure 2022-04-22 12:18:00 55 mm[Hg] [facility] Heart rate 2022-04-22 12:18:00 53 /min [facility] Body temperature 2022-04-22 12:18:00 36.5 [facility] Respiratory rate 2022-04-22 12:18:00 16 /min [facility] Oxygen saturation in Arterial blood by Pulse oximetry 2022-04-22 09:25:00 99 /min [facility] Body height 2022-04-20 08:51:00 154.9 cm [facility] Body weight 2022-04-20 08:51:00 87.272 kg [facility] BMI 2022-04-20 08:51:00 36.35 kg/m2 [facility] Systolic blood pressure 2022-04-14 15:06:00 106 mm[Hg] [facility] Diastolic blood pressure 2022-04-14 15:06:00 70 mm[Hg] [facility] Heart rate 2022-04-14 15:06:00 86 /min [facility] Body temperature 2022-04-14 15:06:00 36.78 [facility] Respiratory rate 2022-04-14 15:06:00 18 /min [facility] Body height 2022-04-14 15:06:[address] [facility] Body weight 2022-04-14 15:06:[address] [facility] BMI 2022-04-14 15:06:00 35.90 kg/m2 [facility] Systolic blood pressure 2022-04-08 15:56:00 106 mm[Hg] [facility] Diastolic blood pressure 2022-04-08 15:56:00 68 mm[Hg] [facility] Heart rate 2022-04-08 15:56:00 65 /min [facility] Body temperature 2022-04-08 15:56:00 36.78 [facility] Respiratory rate 2022-04-08 15:56:00 18 /min [facility] Body height 2022-04-08 15:56:[address] [facility] Body weight 2022-04-08 15:56:[address] [facility] BMI 2022-04-08 15:56:00 35.14 kg/m2 [facility] Systolic blood pressure 2022-04-01 16:10:00 122 mm[Hg] [facility] Diastolic blood pressure 2022-04-01 16:10:00 71 mm[Hg] [facility] Heart rate 2022-04-01 16:10:00 78 /min [facility] Body temperature 2022-04-01 16:10:00 36.78 [facility] Respiratory rate 2022-04-01 16:10:00 18 /min [facility] Body height 2022-04-01 16:10:[address] [facility] Body weight 2022-04-01 16:10:00 84.278 kg [facility] BMI 2022-04-01 16:10:00 35.11 kg/m2 [facility] Procedures Procedure Date / Time Performed Performing Clinician Source RAPID STREP SCREEN FOR GROUP A 2024-06-03 02:57:00 Tristan Gautam [facility] POCT TEST 2024-06-03 02:19:00 Shaun Gautam [facility] URINALYSIS 2024-06-03 02:05:00 Tristan Gautam [facility] ADC CLC OR [facility] ONLY - WET PREP 2024-06-03 02:05:00 Tristan Gautam [facility] POCT TEST 2023-05-23 19:07:00 Carolynn Esparza [facility] CT ABDOMEN PELVIS W CONTRAST 2023-05-15 04:14:11 Alyson Michel [facility] COMP. METABOLIC PANEL ([id number]) 2023-05-15 03:55:00 Alyson Michel [facility] CBC WITH DIFF 2023-05-15 03:55:00 Alsyon Michel [facility] NOTICE OF PRIVACY PRACTICES 2023-05-15 03:39:09 Doctor Unassigned, [place] [facility] CONSENT/REFUSAL FOR DIAGNOSIS AND TREATMENT 2023-05-15 03:35:18 Doctor Unassigned, [place] [facility] CBC WITH DIFF 2023-05-14 10:11:00 Kalina Haro [facility] CBC WITH DIFF 2023-05-14 10:11:00 Estrellita Kalina [facility] CBC WITH DIFF 2023-05-14 10:11:00 Jackie Harosol [facility] EMERGENCY SERVICES AGREEMENTS AND AUTHORIZATIONS 2023-05-14 05:01:00 Doctor Unassigned, [place] [facility] SURGICAL PATHOLOGY EXAM 2023-05-14 00:46:00 Jackie Plolacksol [facility] LAPAROSCOPIC SALPINGECTOMY 2023-05-13 23:47:00 Patinece Lyon Kalina [facility] INTRAUTERINE DEVICE REMOVAL 2023-05-13 23:47:00 Jackie Harosol [facility] LAPAROSCOPIC SALPINGECTOMY 2023-05-13 23:47:00 Patience Lyon Kalina [facility] INTRAUTERINE DEVICE REMOVAL 2023-05-13 23:47:00 Estrellita Kalina [facility] HB ABO GROUPING 2023-05-13 22:52:00 Alyson iMchel [facility] HB ABO GROUPING 2023-05-13 22:52:00 Alyson Michel [facility] HB ABO GROUPING 2023-05-13 22:52:00 Alyson Michel [facility] COMP. METABOLIC PANEL ([id number]) 2023-05-13 20:27:00 Alyson Michel [facility] TOTAL BETA HCG ASSAY 2023-05-13 20:27:00 Aidan Michel [facility] CBC WITH DIFF 2023-05-13 20:27:00 Alyson Michel [facility] COMP. METABOLIC PANEL ([id number]) 2023-05-13 20:27:00 Alyson Michel [facility] TOTAL BETA HCG ASSAY 2023-05-13 20:27:00 Aidan Michle [facility] CBC WITH DIFF 2023-05-13 20:27:00 Alyson Michel [facility] COMP. METABOLIC PANEL ([id number]) 2023-05-13 20:27:00 Alyson Michel [facility] TOTAL BETA HCG ASSAY 2023-05-13 20:27:00 Aidan Michel [facility] CBC WITH DIFF 2023-05-13 20:27:00 Alyson Michel [facility] CONSENT/REFUSAL FOR DIAGNOSIS AND TREATMENT 2023-05-13 19:34:56 Doctor Unassigned, [place] [facility] CONSENT/REFUSAL FOR DIAGNOSIS AND TREATMENT 2023-05-13 19:34:56 Doctor Unassigned, [place] [facility] [facility] CONSENT/REFUSAL FOR DIAGNOSIS AND TREATMENT 2023-05-13 19:34:56 Doctor Unassigned, [place] [facility] US FIRST TRIMESTER LESS THAN 14 WEEKS WITH TRANSVAGINAL 2023-05-13 18:58:29 Carolynn Esparza [facility] HOSPITAL ADMISSION 2023-05-13 05:01:00 Doctor Un assigned, [place] [facility] FIRST TRIMESTER LESS THAN 14 WEEKS WITH TRANSVAGINAL 2023-05-10 22:00:00 Kenny Finley [facility] US OB TRANSVAGINAL 2023-05-10 21:37:34 Carolynn Esparza [facility] COMP. METABOLIC PANEL (90409) 2023-05-10 21:24:00 Kenny Finley [facility] TOTAL BETA HCG ASSAY 2023-05-10 21:24:00 Kulwinder Finley [facility] CBC WITH DIFF 2023-05-10 21:24:00 Kenny Finley [facility] HB ABO GROUPING 2023-05-10 21:24:00 Kenny Finley [facility] CONSENT/REFUSAL FOR DIAGNOSIS AND TREATMENT 2023-05-10 20:57:33 Doctor Unassigned, [place] [facility] POCT TEST 2023-05-10 00:00:00 Carolynn Esparza [facility] POCT URINALYSIS W/O SPECIFIC GRAVITY 2023-05-10 00:00:00 Carolynn Esparza [facility] LAPAROSCOPIC CHOLECYSTECTOMY 2023-03-01 13:45:00 Mily Delgadillo [facility] POCT TEST 2023-03-01 13:30:00 Eduard Delgadillo [facility] POCT TEST 2023-03-01 13:30:00 Eduard Delgadillo [facility] DAY SURGERY - ADC 2023-03-01 05:01:00 Doctor Enedina ssigned, [place] [facility] DISCLOSURE AND CONSENT, MEDICAL AND SURGICAL PROCEDURES 2023-02-03 05:01:00 Doctor Unassigned, [place] [facility] DISCLOSURE AND CONSENT, MEDICAL AND SURGICAL PROCEDURES 2023-02-03 05:01:00 Doctor Unassigned, [place] [facility] US ABDOMEN LIMITED 2023-01-25 20:54:06 Marley Funez [facility] HSV 1&2, VZV NAAT 2023-01-15 00:53:00 Brianne Britton [facility] CONSENT/REFUSAL FOR DIAGNOSIS AND TREATMENT 2022-11-12 15:24:48 Doctor Unassigned, [place] [facility] POCT TEST 2022-11-12 00:00:00 Marley Funez [facility] PATIENT FINANCIAL POLICY 2022-09-17 16:34:46 Doctor Unassigned, [place] [facility] POCT TEST 2022-06-09 15:12:00 Carolynn Esparza [facility] SECURITY ASSISTANT CLINIC ULTRASOUND 2022-06-09 06:01:00 Doc tor Unassigned, [place] [facility] CBC WITH DIFF 2022-04-21 09:07[facility] 2022-04-20 14:22:48 Karen Yu [facility] HB ABO GROUPING 2022-04-20 09:20:[address] [facility] RHO (D) IMMUNE GLOBULIN 2022-04-20 09:20:00 Carolynn Esparza [facility] CONSENT/REFUSAL FOR DIAGNOSIS AND TREATMENT 2022-04-19 13:13:18 Doctor Unassigned, [place] [facility] ASSIGNMENT OF BENEFITS 2022-04-19 13:12:53 Docto r Unassigned, [place] [facility] POCT URINALYSIS W/O SPECIFIC GRAVITY 2022-04-14 00:00:00 Carolynn Esparza [facility] POCT URINALYSIS W/O SPECIFIC GRAVITY 2022-04-08 00:00:00 Brianne Britton [facility] >14 WEEKS US LIMITED 2022-04-01 17:17:35 Carolynn Esparza [facility] DSU PRE-OP 2022-04-01 05:01:00 Doctor Unass igned, [place] [facility] POCT URINALYSIS W/O SPECIFIC GRAVITY 2022-04-01 00:00:00 Carolynn Esparza [facility] Encounters Start Date/Time End Date/Time Encounter Type Admission Type Attending [facility] Care Facility Care Department Encounter ID Source 2022-01-29 21:39:50 Outpatient X [facility] [id number] [facility] 2021-05-18 22:00:59 Emergency [facility] [id number] [facility] 2021-05-16 09:26:29 Emergency [facility] [id number] [facility] 2024-07-28 14:37:00 2024-07-28 15:20:00 Emergency X ALYSON MICHEL SANDRA [facility] [id number] [facility] 2024-07-28 14:37:00 2024-07-28 15:20:00 Emergency Alyson Michel [facility] 1.840.114 350.1.13.10 4.2.7.2.686 [id number] [facility] 2024-05-10 00:00:00 2024-06-16 18:27:10 Patient Secure Msg Doctor Unassigned, [place] Doctor Unassigned, [place] [facility] 1..840.114 350.1.13.10 4.2.7.2.686 [id number] [facility] 2024-06-02 19:20:00 2024-06-02 22:15:00 Emergency X TRISTAN GAUTAM TRISTAN [facility] [id number] [facility] 2024-06-02 19:20:00 2024-06-02 22:15:00 Emergency Tristan Gautam [facility] 1.2.840.114 350.1.13.10 4.2.7.2.686 [id number] 084 [id number] [facility] 2024-05-02 00:00:00 2024-06-02 18:19:25 Patient Secure Msg Doctor Unassigned, [place] Doctor Unassigned, [place] [facility] 1..840.114 350.1.13.10 4.2.7.2.686 [id number] 134 [id number] [facility] 2024-04-02 11:30:00 2024-04-02 11:30:00 Outpatient R DONALD MCGRATH [facility] [id number] [facility] 2023-12-15 13:30:00 2023-12-15 13:30:00 Outpatient R CAROLYNN ESPARZA [facility] [id number] [facility] 2023-10-28 13:00:00 2023-10-28 13:00:00 Outpatient R DONALD MCGRATH [facility] [id number] [facility] 2023-09-23 10:00:00 2023-09-23 10:00:00 Outpatient R NEMO PRADO CHERYAL [facility] [id number] [facility] 2023-09-08 10:00:00 2023-09-08 10:00:00 Outpatient R CAROLYNN ESPARZA [facility] [id number] [facility] 2023-09-05 00:00:00 2023-09-05 00:00:00 Patient Secure Msg Brianne Britton [facility] 1.2.840.114 350.1.13.10 4.2.7.2.686 [id number] [facility] 2023-06-11 00:00:00 2023-06-11 00:00:00 Patient Secure Msg Carolynn Esparza [facility] BUILDING 1.2.840.114 350.1.13.10 4.2.7.2.686 [id number] 134 [id number] [facility] 2023-05-23 13:30:00 2023-05-23 13:45:00 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 Cork Gasket Visit 2, Adc Lab Carolynn Esparza [facility] BUILDING 1.2.840.114 350.1.13.10 4.2.7.2.686 [id number] [facility] 2023-05-23 13:00:00 2023-05-23 13:16:39 Outpatient R CAROLYNN ESPARZA [facility] [id number] [facility] 2023-05-23 13:00:00 2023-05-23 13:16:39 Routine Visit Carolynn Esparza [facility] 1.2.840.114 350.1.13.10 4.2.7.2.686 [id number] 134 [id number] [facility] 2023-05-14 22:43:00 2023-05-15 00:39:00 Emergency X ALYSON MICHEL [facility] [id number] [facility] 2023-05-14 22:43:00 2023-05-15 00:39:00 Emergency Alyson Michel [facility] 1.2.840.114 350.1.13.10 4.2.7.2.686 [id number] 084 [id number] [facility] 2023-05-13 14:52:00 2023-05-14 09:30:00 Outpatient X JOSE-RACIEL Echols, KALINA JOSE-RACIEL S, KALINA [facility] [id number] [facility] 2023-05-13 14:52:00 2023-05-14 09:30:00 Emergency Alyson Michel [facility] 1.2.840.114 350.1.13.10 4.2.7.2.686 [id number] [facility] 2023-05-13 19:00:00 2023-05-13 20:59:00 [facility] [place] 1.2.840.114 350.1.13.10 4.2.7.2.686 [id number] [facility] 2023-05-13 13:19:24 2023-05-13 14:51:00 Outpatient R CAROLYNN ESPARZA [facility] [id number] [facility] 2023-05-13 13:00:00 2023-05-13 14:51:00 Hospital Encounter Carolynn Esparza [facility] 1.2.840.114 350.1.13.10 4.2.7.2.686 [id number] [facility] 2023-05-12 13:15:00 2023-05-12 13:30:00 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 Cork Gasket Visit 2, [facility] 1.2.840.114 350.1.13.10 4.2.7.2.686 [id number] [facility] 2023-05-12 13:15:00 2023-05-12 13:26:14 Outpatient R CAROLYNN ESPARZA [facility] [id number] [facility] 2023-05-12 00:00:00 2023-05-12 00:00:00 Telephone Carolynn Esparza [facility] BUILDING 1.2.840.114 350.1.13.10 4.2.7.2.686 [id number] 134 [id number] [facility] 2023-05-12 00:00:00 2023-05-12 00:00:00 Case Management Carolynn Esparza [facility] 1.2.840.114 350.1.13.10 4.2.7.2.686 [id number] 134 [id number] [facility] 2023-05-12 00:00:00 2023-05-12 00:00:00 Telephone [facility] 1.2.840.114 350.1.13.10 4.2.7.2.686 [id number] 134 [id number] [facility] 2023-05-12 00:00:00 2023-05-12 00:00:00 Patient Secure Msg Doctor Unassigned, [place] [facility] 1..840.114 350.1.13.10 4.2.7.2.686 [id number] 134 [id number] [facility] 2023-05-10 16:05:00 2023-05-10 19:18:00 Emergency X KENNY FINLEY [facility] [id number] [facility] 2023-05-10 16:05:00 2023-05-10 19:18:00 Emergency Kenny Finley [facility] 1..840.114 350.1.13.10 4.2.7.2.686 [id number] 084 [id number] [facility] 2023-05-10 15:30:00 2023-05-10 16:25:07 Outpatient R CAROLYNN ESPARZA [facility] [id number] [facility] 2023-05-10 15:30:00 2023-05-10 16:25:07 Office Visit Carolynn Esparza [facility] 1..840.114 350.1.13.10 4.2.7.2.686 [id number] [facility] 2023-03-28 08:30:00 2023-03-28 08:30:00 Outpatient R MILY DELGADILLO [facility] [id number] [facility] 2023-03-25 00:00:00 2023-03-25 00:00:00 Patient Secure Msg Doctor Unassigned, [place] [facility] ..840.114 350.1.13.10 4.2.7.2.686 [id number] 134 [id number] [facility] 2023-03-15 13:30:00 2023-03-15 13:30:00 Office Visit Razia Pitts Laurel [facility] 1.840.114 350.1.13.10 4.2.7.2.686 [id number] [facility] 2023-03-15 13:30:00 2023-03-15 13:29:16 Outpatient R MILY DELGADILLO [facility] [id number] [facility] 2023-03-13 00:00:00 2023-03-13 00:00:00 [facility] 1..840.114 350.1.13.10 4.2.7.2.686 [id number] 134 [id number] [facility] 2023-03-04 18:00:00 2023-03-04 18:20:00 Urgent Care Tobi [facility] 1..840.114 350.1.13.10 4.2.7.2.686 [id number] [facility] 2023-03-04 18:00:00 2023-03-04 18:00:00 Outpatient R TOBI [facility] [id number] [facility] 2023-03-04 00:00:00 2023-03-04 00:00:00 Patient Secure Msg Britton [facility] 1.2.840.114 350.1.13.10 4.2.7.2.686 [id number] [facility] 2023-03-01 09:20:00 2023-03-01 12:29:00 Surgery Mily Delgadillo [facility] 1.2.840.114 350.1.13.10 4.2.7.2.686 [id number] [id number] [facility] 2023-03-01 08:24:00 2023-03-01 11:55:00 Outpatient R MILY DELGADILLO [facility] [id number] [facility] 2023-03-01 08:24:00 2023-03-01 11:55:00 Hospital Encounter Mily Delgadillo [facility] 1.2.840.114 350.1.13.10 4.2.7.2.686 [id number] [id number] [facility] 2023-02-21 00:00:00 2023-02-21 00:00:00 Patient Secure Msg Mily Delgadillo [facility] 1.2.840.114 350.1.13.10 4.2.7.2.686 [id number] [facility] 2023-02-18 00:00:00 2023-02-18 00:00:00 Patient Secure Msg Tobi [facility] BUILDING 1.2.840.114 350.1.13.10 4.2.7.2.686 [id number] 134 [id number] [facility] 2023-02-17 00:00:00 2023-02-17 00:00:00 Patient Secure g Brianne Britton [facility] 1.2.840.114 350.1.13.10 4.2.7.2.686 [id number] 134 [id number] [facility] 2023-02-03 08:30:00 2023-02-03 10:56:39 Outpatient R MILY DELGADILLO [facility] [id number] [facility] 2023-02-03 08:30:00 2023-02-03 10:56:39 Office Visit Mily Delgadillo [facility] 1.2.840.114 350.1.13.10 4.2.7.2.686 [id number] [facility] 2023-01-29 00:00:00 2023-01-29 00:00:00 Telephone Marley Funez [facility] [place]IANA?JACEK [facility] MEDICAL OFFICE BUILDING 1.2.840.114 350.1.13.10 4.2.7.2.686 [id number] [id number] [facility] 2023-01-26 00:00:00 2023-01-26 00:00:00 Patient Secure Brianne Duff [facility] 1.2.840.114 350.1.13.10 4.2.7.2.686 [id number] 134 [id number] [facility] 2023-01-26 00:00:00 2023-01-26 00:00:00 Telephone Marley Funez [facility] MEDICAL OFFICE [facility] 1.2.840.114 350.1.13.10 4.2.7.2.686 [id number] 044 [id number] [facility] 2023-01-25 15:19:29 2023-01-25 23:59:00 Outpatient R MARLEY FUNEZ [facility] [id number] [facility] 2023-01-25 15:19:29 2023-01-25 23:59:00 Hospital Encounter Marley Funez [facility] 1.2.840.114 350.1.13.10 4.2.7.2.686 [id number] [facility] 2023-01-15 00:00:00 2023-01-15 00:00:00 Patient Secure Msg Britton [facility] 1.2.840.114 350.1.13.10 4.2.7.2.686 [id number] [facility] 2023-01-14 19:20:00 2023-01-14 20:53:05 Outpatient R TOBI BRIANNE [facility] [id number] [facility] 2023-01-14 19:20:00 2023-01-14 20:53:05 Urgent Care Brianne Britton Unknown, Attending [facility]?JACEK [facility] MEDICAL OFFICE BUILDING 1.2.840.114 350.1.13.10 4.2.7.2.686 [id number] [facility] 2023-01-12 00:00:00 2023-01-12 00:00:00 Patient Secure Msg Denita Brittoncy [facility] BU[facility] 1.2.840.114 350.1.13.10 4.2.7.2.686 [id number] 134 [id number] [facility] 2023-01-03 00:00:00 2023-01-03 00:00:00 Refill Marley Funez A [facility] MEDICAL OFFICE BUILDING 1.2.840.114 350.1.13.10 4.2.7.2.686 [id number] [id number] [facility] 2023-01-02 00:00:00 2023-01-02 00:00:00 Patient Secure Msg Marley Funez [facility] MED[facility] OFF[facility] BUILD[facility] 1.2.840.114 350.1.13.10 4.2.7.2.686 [id number] [facility] 2022-12-30 00:00:00 2022-12-30 00:00:00 Case Management Brianne Britton [facility] [place] MEDICAL OFFICE BUILD[facility] 1.2.840.114 350.1.13.10 4.2.7.2.686 [id number] [facility] 2022-12-29 15:15:00 2022-12-29 15:20:41 Outpatient R TOBI BRIANNE [facility] [id number] [facility] 2022-12-29 15:15:00 2022-12-29 15:20:41 Office Visit Brianne Britton [facility] BU[facility] 1.2.840.114 350.1.13.10 4.2.7.2.686 [id number] [facility] 2022-12-10 00:00:00 2022-12-10 00:00:00 Outpatient R MARLEY FUNEZ [facility] [id number] [facility] 2022-11-24 00:00:00 2022-11-24 00:00:00 Telephone Marley Funez [facility] 1.2840.114 350.1.13.10 4.2.7.2.686 [id number] 044 [id number] [facility] 2022-11-12 10:30:00 2022-11-12 11:14:36 Outpatient R MARLEY FUNEZ [facility] [id number] [facility] 2022-11-12 10:30:00 2022-11-12 11:14:36 Office Visit Marley Funez [facility] 1.840.114 350.1.13.10 4.2.7.2.686 [id number] [facility] 2022-11-12 00:00:00 2022-11-12 00:00:00 Orders Only Doctor Unassigned, [place] [facility] 1.840.114 350.1.13.10 4.2.7.2.686 [id number] [facility] 2022-11-04 09:30:00 2022-11-04 09:45:00 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 Cork 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 Visit 2, Adc Lab Nemo Prado [facility] BUILD[facility] 1.2840.114 350.1.13.10 4.2.7.2.686 [id number] [facility] 2022-11-04 09:30:00 2022-11-04 09:30:00 Outpatient R NEMO PRADO CHERYAL [facility] [id number] [facility] 2022-11-02 10:30:00 2022-11-02 10:30:00 Outpatient R [facility] [id number] [facility] 2022-10-14 11:00:00 2022-10-14 11:00:00 Outpatient R [facility] [id number] [facility] 2022-09-20 09:15:00 2022-09-20 09:15:00 Outpatient R MARKNEMO BHARDWAJAURELIANONEMO DELUCA [facility] [id number] [facility] 2022-09-17 10:30:00 2022-09-17 11:21:57 Outpatient R MARKNEMO BHARDWAJ MARKWONAURELIANONEMO DELUCA [facility] [id number] [facility] 2022-09-17 10:30:00 2022-09-17 11:21:57 Office Visit VilmaNemo deluca [facility] 1.0.114 350.1.13.10 4.2.7.2.686 [id number] 134 [id number] [facility] 2022-09-17 00:00:00 2022-09-17 00:00:00 Orders Only Doctor Unassigned, [place] [facility] 1.840.114 350.1.13.10 4.2.7.2.686 [id number] [facility] 2022-09-10 00:00:00 2022-09-10 00:00:00 Pre Visit Outreach Nell Chen 1.840.114 350.1.13.10 4.2.7.2.686 [id number] [id number] [facility] 2022-07-15 10:30:00 2022-07-15 10:30:00 Outpatient R BRIANNE BRITTON [facility] [id number] [facility] 2022-07-07 10:45:00 2022-07-07 11:19:46 Outpatient R CAROLYNN ESPARZA [facility] [id number] [facility] 2022-07-07 10:45:00 2022-07-07 11:19:46 Office Visit Carolynn Esparza [facility] 1.2840.114 350.1.13.10 4.2.7.2.686 [id number] [facility] 2022-06-09 09:00:00 2022-06-09 10:13:16 Outpatient R CAROLYNN ESPARZA [facility] [id number] [facility] 2022-06-09 09:00:00 2022-06-09 10:13:16 Office Visit Carolynn Esparza [facility] 1.840.114 350.1.13.10 4.2.7.2.686 [id number] [facility] 2022-06-09 00:00:00 2022-06-09 00:00:00 Orders Only Doctor Unassigned, [place] [facility] 1.84.114 350.1.13.10 4.2.7.2.686 [id number] [facility] 2022-05-12 13:00:00 2022-05-12 13:20:00 Outpatient R CAROLYNN ESPARZA [facility] [id number] [facility] 2022-05-12 13:00:00 2022-05-12 13:20:00 Routine Visit Carolynn Esparza [facility] 1.2840.114 350.1.13.10 4.2.7.2.686 [id number] 134 [id number] [facility] 2022-04-20 03:41:00 2022-04-22 09:40:00 Hospital Encounter Carolynn Esparza [facility] 1.2840.114 350.1.13.10 4.2.7.2.686 [id number] 083 [id number] [facility] 2022-04-20 08:56:00 2022-04-20 18:22:00 Anesthesia Event Livan Yu Jeffrey S [facility] 1.2.840.114 350.1.13.10 4.2.7.2.686 [id number] [facility] 2022-04-20 08:47:11 2022-04-20 08:47:11 Anesthesia Event Livan Yu [facility] 1.2.840.114 350.1.13.10 4.2.7.2.686 [id number] [facility] 2022-04-19 08:30:00 2022-04-19 08:45:00 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 Cork Gasket Visit Pob, Adc Lab Main Carolynn Esparza [facility]ESS[facility] NAL BUILDING 1.2840.114 350.1.13.10 4.2.7.2.686 [id number] [facility] 2022-04-19 08:00:00 2022-04-19 08:15:00 Laboratory Only Only, Adc Test Carolynn Espraza [facility] 1.2840.114 350.1.13.10 4.2.7.2.686 [id number] [facility] 2022-04-19 08:00:00 2022-04-19 08:00:00 Outpatient R CAROLYNN ESPARZA [facility] [id number] [facility] 2022-04-19 08:00:00 2022-04-19 08:00:00 Out[facility] [id number] [facility] 2022-04-14 10:00:00 2022-04-14 10:15:00 Routine Visit Carolynn Esparza [facility]ESS[facility] NAL BUILDING 1.2840.114 350.1.13.10 4.2.7.2.686 [id number] [facility] 2022-04-14 10:00:00 2022-04-14 10:00:00 Outpatient R CAROLYNN ESPARZA [facility] [id number] [facility] 2022-04-09 10:00:00 2022-04-09 10:15:00 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 Cork Gasket Visit 2, Adc Lab Carolynn Esparza [facility] BUILDING 1..840.114 350.1.13.10 4.2.7.2.686 [id number] [facility] 2022-04-09 10:00:00 2022-04-09 10:00:00 Outpatient R ISAIAS [facility] [id number] [facility] 2022-04-08 10:30:00 2022-04-08 11:20:01 [id number] 2022-04-08 10:30:00 2022-04-08 11:20:01 Routine Visit Brianne Britton [facility] 1..840.114 350.1.13.10 4.2.7.2.686 [id number] [facility] 2022-04-08 11:15:00 2022-04-08 11:15:00 Outpatient R [facility]BI [facility] [id number] [facility] 2022-04-01 11:00:00 2022-04-01 11:54:28 Outpatient R ISAIAS [facility] [id number] [facility] 2022-04-01 11:00:00 2022-04-01 11:54:28 Routine Visit Carolynn Esparza [facility] 1..840.114 350.1.13.10 4.2.7.2.686 [id number] [facility] 2022-04-01 11:00:00 2022-04-01 11:54:28 Outpatient R CAROLYNN ESPARZA [facility] [id number] [facility] 2022-04-01 00:00:00 2022-04-01 00:00:00 Orders Only Doctor Unassigned, [place] [facility] 1.2.840.114 350.1.13.10 4.2.7.2.686 [id number] [facility] 2022-03-25 12:00:00 2022-03-25 12:52:58 Outpatient R GIDEON SANTOS [facility] [id number] [facility] 2022-03-25 12:00:00 2022-03-25 12:52:58 Urgent Care Gideon Santos, [facility] 1.2.840.114 350.1.13.10 4.2.7.2.686 [id number] [facility] 2022-03-25 11:00:00 2022-03-25 11:32:10 Routine Visit Brianne Britton [facility] 1.2.840.114 350.1.13.10 4.2.7.2.686 [id number] [facility] 2022-03-11 11:15:00 2022-03-11 12:07:16 Routine Visit Carolynn Esparza [facility] 1.2.840.114 350.1.13.10 4.2.7.2.686 [id number] [facility] 2022-03-11 11:15:00 2022-03-11 12:07:16 Outpatient R CAROLYNN ESPARZA [facility] [id number] [facility] 2022-03-09 13:30:00 2022-03-09 14:15:00 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 [place] Gasket Visit 2, [facility] Room Lesly Elliott [facility] 1.840.114 350.1.13.10 4.2.7.2.686 [id number] [facility] 2022-03-09 13:30:00 2022-03-09 13:30:00 Outpatient P LESLY ELLIOTT [facility] [id number] [facility] 2022-03-01 08:45:00 2022-03-01 08:45:00 Outpatient P [facility] [id number] [facility] 2022-02-24 00:00:00 2022-02-24 00:00:00 Telephone Carolynn Esparza [facility] 1.840.114 350.1.13.10 4.2.7.2.686 [id number] 134 [id number] [facility] 2022-02-23 16:15:00 2022-02-23 16:46:49 Outpatient R TOBI [facility] [id number] [facility] 2022-02-23 16:15:00 2022-02-23 16:46:49 Routine Visit Tobi Brianne [facility] 1..840.114 350.1.13.10 4.2.7.2.686 [id number] 134 [id number] [facility] 2022-02-23 00:00:00 2022-02-23 00:00:00 Orders Only Doctor Unassigned, [place] [facility] 1.840.114 350.1.13.10 4.2.7.2.686 [id number] [id number] [facility] 2022-02-16 16:00:00 2022-02-16 16:00:00 Outpatient R TOBI BRIANNE [facility] [id number] [facility] 2022-02-08 00:00:00 2022-02-08 00:00:00 Telephone Brianne Britton [facility] 1..840.114 350.1.13.10 4.2.7.2.686 [id number] [facility] 2022-02-05 08:45:00 2022-02-05 09:00:00 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 Cork Gasket Visit 2[facility]..840.114 350.1.13.10 4.2.7.2.686 [id number] [facility] 2022-02-05 08:45:00 2022-02-05 08:45:00 Outpatient R TOBI [facility] [id number] [facility] 2022-02-02 14:00:00 2022-02-02 14:32:25 Outpatient R CAROLYNN ESPARZA [facility] [id number] [facility] 2022-02-02 14:00:00 2022-02-02 14:32:25 Routine Visit Mamadou Esparzaen [facility] 1..840.114 350.1.13.10 4.2.7.2.686 [id number] 134 [id number] [facility] 2022-02-02 09:30:00 2022-02-02 09:30:00 Outpatient R CAROLYNN ESPARZA [facility] [id number] [facility] 2022-01-29 12:58:00 2022-01-29 21:22:00 Outpatient X ISAIAS [facility] [id number] [facility] 2022-01-29 12:58:00 2022-01-29 21:22:00 Emergency Fish, CassyCarolynn Sky [facility] 1.2.840.114 350.1.13.10 4.2.7.2.686 [id number] [id number] [facility] 2022-01-21 00:00:00 2022-01-21 00:00:00 Telephone Brianne Britton [facility] 1.2.840.114 350.1.13.10 4.2.7.2.686 [id number] 134 [id number] [facility] 2022-01-07 00:00:00 2022-01-07 00:00:00 Case Management Brianne Britton [facility] 1.2840.114 350.1.13.10 4.2.7.2.686 [id number] 134 [id number] [facility] 2022-01-05 11:00:00 2022-01-05 11:37:38 Routine Visit Brianne Britton [facility] 1.2.840.114 350.1.13.10 4.2.7.2.686 [id number] 134 [id number] [facility] 2022-01-05 11:00:00 2022-01-05 11:37:38 Outpatient R ESTUARDODARIN [facility] [id number] [facility] 2022-01-05 11:00:00 2022-01-05 11:00:00 [id number] 2021-12-29 00:00:00 2021-12-29 00:00:00 Telephone Carolynn Esparza [facility] 1.2.840.114 350.1.13.10 4.2.7.2.686 [id number] 134 [id number] [facility] 2021-12-23 10:30:00 2021-12-23 11:30:00 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 Cork Gasket Visit Ultrasound, Gio Alvares [facility] 1..840.114 350.1.13.10 4.2.7.2.686 [id number] [facility] 2021-12-23 10:30:00 2021-12-23 10:30:00 Outpatient P GIO DUKES [facility] [id number] [facility] 2021-12-08 13:00:00 2021-12-08 13:32:10 Outpatient R CAROLYNN ESPARZA [facility] [id number] [facility] 2021-12-08 13:00:00 2021-12-08 13:32:10 Routine Visit Carolynn Esparza [facility] 1.2.840.114 350.1.13.10 4.2.7.2.686 [id number] 134 [id number] [facility] 2021-12-08 13:00:00 2021-12-08 13:00:00 Outpatient R CAROLYNN ESPARZA [facility] [id number] [facility] 2021-11-10 13:00:00 2021-11-10 13:15:00 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 Cork Gasket Visit 2, Adc Lab Brianne Britton [facility] 1.2.840.114 350.1.13.10 4.2.7.2.686 [id number] [facility] 2021-11-10 13:00:00 2021-11-10 13:00:00 Outpatient R TOBIBRIANNE [facility] [id number] [facility] 2021-11-10 11:15:00 2021-11-10 11:34:32 Routine Visit TobiBrianne [facility] 1.2.840.114 350.1.13.10 4.2.7.2.686 [id number] 134 [id number] [facility] 2021-11-10 11:15:00 2021-11-10 11:34:32 Outpatient R ESTUARDOLAURABRIANNE COFFEY [facility] [id number] [facility] 2021-11-10 11:15:00 2021-11-10 11:15:00 Outpatient BRIANNE NGUYỄN [facility] [id number] [facility] 2021-11-04 00:00:00 2021-11-04 00:00:00 Orders Only Doctor Unassigned, [place] [facility] 1.2.840.114 350.1.13.10 4.2.7.2.686 [id number] [id number] [facility] 2021-10-22 00:00:00 2021-10-22 00:00:00 Telephone Carolynn Esparza [facility] 1.2.840.114 350.1.13.10 4.2.7.2.686 [id number] 134 [id number] [facility] 2021-10-20 00:00:00 2021-10-20 00:00:00 Telephone Carolynn Esparza [facility] 1.2.840.114 350.1.13.10 4.2.7.2.686 [id number] 134 [id number] [facility] 2021-10-16 00:00:00 2021-10-16 00:00:00 Telephone Carolynn Esparza [facility] 1.2.840.114 350.1.13.10 4.2.7.2.686 [id number] 134 [id number] [facility] 2021-10-16 00:00:00 2021-10-16 00:00:00 Telephone Carolynn Esparza [facility] 1.2.840.114 350.1.13.10 4.2.7.2.686 [id number] 134 [id number] [facility] 2021-10-15 09:45:00 2021-10-15 10:00:00 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 Cork Gasket Visit 2, Adc Lab Carolynn Esparza [facility] 1.2.840.114 350.1.13.10 4.2.7.2.686 [id number] [facility] 2021-10-15 09:45:00 2021-10-15 09:45:00 Outpatient R [facility] [id number] [facility] 2021-10-15 09:45:00 2021-10-15 09:45:00 [id number] 2021-10-15 00:00:00 2021-10-15 00:00:00 Case Management Brianne Britton [facility] 1.114 350.1.13.10 4.2.7.2.686 [id number] [facility] 2021-10-15 00:00:00 2021-10-15 00:00:00 Orders Only Doctor Unassigned, [place] [facility] 1.84114 350.1.13.10 4.2.7.2.686 [id number] [id number] [facility] 2021-10-14 14:00:00 2021-10-14 15:15:08 Outpatient R CAROLYNN ESPARZA [facility] [id number] [facility] 2021-10-14 14:00:00 2021-10-14 15:15:08 Initial Visit Carolynn Esparza [facility] 1.840.114 350.1.13.10 4.2.7.2.686 [id number] [facility] 2021-10-14 14:00:00 2021-10-14 15:15:08 Outpatient R CAROLYNN ESPARZA [facility] [id number] [facility] 2021-10-14 00:00:00 2021-10-14 00:00:00 Orders Only Doctor Unassigned, [place] [facility] 1.84114 350.1.13.10 4.2.7.2.686 [id number] [id number] [facility] 2021-03-28 14:12:00 2021-03-28 16:13:00 Emergency Avis Banuelos [facility] 1.2.840.114 350.1.13.10 4.2.7.2.686 [id number] [facility] 2020-08-20 14:30:00 2020-08-20 14:30:00 Outpatient BRIANNE NGUYỄN [facility] [id number] [facility] 2020-07-31 13:00:00 2020-07-31 13:00:00 Outpatient Phani BRITTON [facility] [id number] [facility] 2020-06-21 11:46:00 2020-06-21 13:39:00 Emergency Charlene Whyte [facility] 1.2.840.114 350.1.13.10 4.2.7.2.686 [id number] [facility] 2020-06-21 00:00:00 2020-06-21 00:00:00 Orders Only Doctor Unassigned, [place] [facility] 1.2.840.114 350.1.13.10 4.2.7.2.686 [id number] [id number] [facility] 2020-05-28 13:30:00 2020-05-28 13:30:00 Outpatient BRIANNE NGUYỄN [facility] [id number] [facility] 2020-05-01 09:30:00 2020-05-01 09:30:00 Outpatient CAROLYNN WILSON [facility] [id number] [facility] 2020-04-30 08:30:00 2020-04-30 08:30:00 Outpatient BRIANNE NGUYỄN [facility] [id number] [facility] 2020-04-28 15:15:00 2020-04-28 15:15:00 Outpatient CAROLYNN WILSON [facility] [id number] [facility] 2019-03-06 13:43:15 2019-03-06 14:49:14 Office Visit Marley Funez [facility] 1.2.840.114 350.1.13.10 4.2.7.2.686 [id number] [facility] 2019-03-05 00:00:00 2019-03-05 00:00:00 Case Management Brianne Britton [facility] 1.2.840.114 350.1.13.10 4.2.7.2.686 [id number] 134 [id number] [facility] 2019-03-05 00:00:00 2019-03-05 00:00:00 Telephone Carolynn Esparza [facility] 1.2.840.114 350.1.13.10 4.2.7.2.686 [id number] 134 [id number] [facility] 2019-03-01 08:58:15 2019-03-01 09:51:29 Office Visit Brianne Britton [facility] 1.2.840.114 350.1.13.10 4.2.7.2.686 [id number] [facility] Results Test Description Test Time Test Comments Results Result Co [facility]ments [facility]22:33* Test Item Value Reference Range Interpretation Comme nts APPEARANCE (test code = 3073925310) Slightly Cloudy Clear A COLOR (test code = 4553687913) Julieta Yellow A PH (test code = 7290843524) 5.0 4.8-8.0 SP GRAVITY (test code = 1850717740) 1.028 1.003-1.030 GLU U QUAL (test code = 1139725090) Normal Normal BLOOD (test code = 3346726182) 1+ Negative A KETONES (test code = 0290816207) 5 mg/dL Negative A PROTEIN (test code = 2887-8) 30 mg/dL Negative A UROBILIN (test code = 0545842624) Normal Normal BILIRUBIN (test code = 3615851410) Negative Negative NITRITE (test code = 3533850880) Negative Negative LEUK ZAIDA (test code = 5735850831) Negative Negative RBC/HPF (test code = 9856578074) 5 0-3 H WBC/HPF (test code = 8928972528) 3 0-5 BACTERIA (test code = 3763518826) Negative Negative MUCOUS (test code = 5102466023) Marked Negative LPF A SQ EPITH (test code = 4934793502) 5 HPF Lab Interpretation (test cod e = 58767-5) Abnormal [facility] [id number] 02:19:00* Test Item Value Reference Range Interpretation Comme nts POCT PREG (test code = 1605) Negative On board controls acceptable with C Line (test code = 3574) Yes Lab Interpretation (test cod e = 18262-4) Normal [facility] [id number] 19:07:00* Test Item Value Reference Range Interpretation Comme nts POCT PREG (test code = 1605) Negative On board controls acceptable with C Line (test code = 3574) Yes POCT PREG LOT # (test code = 3575) POCT PREG TEST DATE (test code = 3576) ENE (test code = ENE) accurate developme nt and interpretation of all internal controls Lab Interpretation (test code = 48428-3) Normal [facility] [id number] 17:09:45* Test Item Value Reference Range Interpretation Comme nts Case Report (test code = 7940102846) Surgical Pathology ?Case: [id number] ? Authorizing Provider: ?Kalina Haro MD ?Collected: ? 05/13/20231945 ?Ordering Location: ? ? [facility] ? ? ?Received: ?05/13/20232151 ? [facility] Center ?Pathologist: ? Michael, Tatiana Mullins, ? MD ? Specimens: ? A) - FALLOPIAN TUBE, LEFT ? B) - UTERUS, INTRAUTERINE DEVICE REMOVAL ? Final Diagnosis (test code = 1087784734) z5lmkBMcZPLhk3llXTHvcNQl ZzEwMzNcZnRuYmpcdWMxIHtc cnRmMVxhbnNpXGRlZmxhbmcx XTFwLMV9dhYjNSImZMS1APS0 BcZnYYLyBxAzMDLzUGOiv0kb g0LqaPSvrSMrYGnnhFQabzEc vy71rCW7bN44RI6uTYFbFyF3 PFKwnhT9Eed7XSMaTGFiwROw S633a9tch6cxvyXbjIW0bSam KHTyeqqoBhJ2EAybPRGjskco BQg7RQgcOEYgeRK8CQBhsNLl A7PfOSOuRX9auhg9VTL6DEot WJSsThH2GIIsxDTeHBMdfDms SCewr758SLO1NgVsAZVjzuVo tCsnzW0pIiZuIVbzUGWmNH5a YqOWWM8XYUBRUFNGUdZpTP8O XJWGWY3BUEXaAXNUV75LRvIA MGRPIMPVSEWOLUiUOX4ZIWXX Q43TFhavGKUbUHTrSOXsGXAO TExPUElBTiBUVUJFIFdJVEgg G4kGCfwIKidFBXOKYBvSYFNV ZeUbAmySR9FpO6uKMMJvRQYS XeEKO6MXXyAdS1ySEHFSS1GL DNqHTTGWSYaQXU1PVIwgMWIc vNWcXMEpSKGVGEPNUagbAY2M UsNWXXHZFW5TOYWAPyaDJMLG XE2QFsDTHdHtpRXhUYBgHZLf PKNTTr0KLnMWUcvRQXpCPRHl F2XFG4IwYULWL6FMWGMPN48z XHBhclxwYXIgUmFzaGEgQWxm QCQ7KSphXJ6CF4kOCFIrfJEg EOHmos46EXA4EmCep2H1WUSd NqLxYPBqTJ9zoJbaFVNzJR2g EHOpR2ormW1qcqe0NiRqICEv LuV1UQArfpE7Gny2QURhHHfr n7vco8QnT2DdhRSqiTn4t1yq UAJeUnV7cDGqYBnvK9umuzYh zCUjROBrVTs3jZhnCuYnMUBw w8kqxdMsWySzQCYfBLXhXPYs eUbkgzl6uK84FIWbnK1syARt UPmgjjLmAaF1BFtgZFFuIcF2 JBCtaACfDTFhN3bjZDWaZKbj WSOcDNbqmKTvWTN1vWcgo4F9 bGVzaGVldHtcZjBcZnMyOCBO g5CcJNr2dQrgV9LkARAwMjI4 bHQgUGFyYWdyYXBoIEZvbnQ7 dA80ETowhmS9mOFjo3Czp49a w220hV9tgNCmTJC7ROZmJBNd mBPgZXKpRGU8QDUzoLQqU9qr IIUbSN2dhlwjRXvsNMhmVLDv qSW8POJzpXEsC4BsNOXnZKsx MDWcseq5KfZjSy1fqHPlqObn PKlkn2nbw2higEOzOox9QKNn KhSiTakcPWqcb7Kbq4vqTMZj wk5zHCM9fLMeyBhfk1Q5wFPy QRGksXNimeXnKZCfWgI2GBjb HS8ctr65VICaSKO8qx5juHPa pSlhtkZepCWfZEqzK0XjGSWe g797AYMtN6TrGGTcv9C9wiEr WqFbBRGdyKK9ixX4PKEhADk8 pPKhwyS9bjGikLEzP2wpyL2q MJDkBH1zkgkmi2jdQCjzWPng VQMuyGZ9bvR1TJIkrGUlM4Jf iJ9eNBHuHFeyVZEljxh0CgHj Ey2aeSUrwKalISkkAvdqKOns XHBnbmNvbnRccGduZGVjXHBs YWluXHBsYWluXGYwXGZzMjRc uXroyJteiZ7aZrJgUnQhEVbs RA2dEDRlL7wdpRIoSVQqPRHq O0hyJgIivO4jcPhkAQoxNlWp ZnMyMFxwYXIgSSBoYXZlIHBl wmMmmePdjRalhcA5jFT6VODn EBrkKGOcYAQjjHLzxk4iyCim IPPeNF7jJNOldxHxLHqhkBsp LZroEPL3RZOieRAybMDjiREp ZSBieSByZXNpZGVudHMsIGZl nBces1Bym8PkmTR8lU8ba2dk m7DxYNAliBW8MJ14ctQ7iU1k SUGaQZ3zPOHkLF5fsOItvEBj UJGqx07znUblpmNjXGJwivNd XHBsYWluXGYyXGZzMjhcbGFu ZzEwMzNcaGljaFxmMlxkYmNo XOLsJTujD4lqIyRdAuCsIOkr MTH5dOozpgEbBPwxe0KlA6Al MjAwMFxhbnNpXGRlZmxhbmcx WSVqQPA0gdNcHACtEPmwAQMx ZAyyUy9acBVsvQayFjQtTYKu a5forfKGAQviVvCuL656WYQj UIebr0jaa3KrIEPpuQNji3W0 RTOZgwpawSj5tTiwL44sv8U5 LnioF5eyUVZaELPrW7MoEG2x VGFrOel3XUQ2CVN5QPNfGSFk T9UbZC0vGVLiqSShIIr6i1eg cUpkBXXbVXA4p8nnWEggqiJ3 PR9hgh7zlZn3x5diaaVdKLPd DZIbxFFHYMWnJ9LllSknZm1a lAk7zQeoImakKYZ4Rns4UG6n el69eep9iXgqPTRedjyyXbN0 LDwdESFxbvrdTBe8IGtqEGBs xZR5KXWyeNEjY1YcBODcJH9r ica9NYM9XEmnSBYaRcP1SVUw wJXkRBPpzQveXHnbq646MFO7 DzZmAO4eA7Jks8D5dM1ieOBc YQMicAWzRaKxRWHvbo4gkLGw XPfjl8BqM90ppEE6XVxpc6fc JX3rFdI3dxSaRHyrm2mwgD5u XdD2BRkcBR3ang00MKAgOHE1 bo5dgKRetCrqxfWzdVNdQXqj V9VxSPSmv303GDThL9EzCMZq t2K4icMiXxFmILIgbPF5slJ6 SPJlEFp8ePAkgcR4inNohANu A8ltwV0fQTKiXB1sflhmj6ie PRqsXQspIVBzdAQ3ptP4KZSa jHVbJ5QsiM6sIAUpEEqkMWFj ysi6HuYkBi0xlTWokVxvNMyg YmtwYWdlXHBnbmNvbnRccGdu ZGVjXHBsYWluXHBsYWluXGYw YRVjGgLdiQGqPUhgc4EsyhWp cYttCQSkWMu2gzSkrqdfzXf3 rORtoKgjGTVhkBuxvI2rJlWd SnKpUWecUM5mANAkY6iawGJx CPKuAELsP4swBrZhmE4gaCgw MVxjZjJcZnMyMFxsdHJjaFxw YXIgSSBoYXZlIHBlcnNvbmFs iTzswoJ7kFJ4EWVnNLvlRQRc ITWwtCLqsn7tdQpgJOAlEY5h IGFncmVlIHdpdGggYWxsIHN0 YXRlbWVudHMgbWFkZSBieSBy LVWmCGVaeMDxJARfhVsef7Xo z1AmcSX4zG9xt0lqh9DyCXYz rWT7WS03vpX2xY3yYFNlUZ9r OESnHC9lzITshIMkKMBwh16t dGhpcyByZXBvcnQuXHBsYWlu XGYxXGZzMjBcbGFuZzEwMzNc aGljaFxmMVxkYmNoXGYxXGxv H0rlYyGwZ5YzVXUuJlLbyRZb MODdlscfTZJbp1ArOeVfe5rb SVrrs8axiHz3NLonlGXgaegw DMdvzeA1JUTqMCffMDDeYVDi MTRcbGFuZzEwMzNcaGljaFxm EIrpQhJrVUOgZXuuO0eoKlZl F4CmLRJtVQQyzRNbD7kzIJO7 sF4kr6aie6IxoYMzQxAex4lc bmFsIGNvbXBvbmVudCBwZXJm m4CnSYObZEYqRRQPYp8QYNSi fYZoF9z4wZOBEU9ggUZpXKTi INFtW3EuNzWNnmLgv9N1GYLy rQZxVRXSRUZnxBBiM6v8pDzq LRaxIyc2KfBmdDfmtO8uMmLi DjZhWHjrOF6tWFWvG5mqkAZc HBWgCVSbB8qhDmGmgV2txRzv MVxjZjJcZnMyMFxsdHJjaFxw YXJ9fQ== Clinical Information (test code = 9221744156) LEFT LOWER PELVIC PAINSUSPICION FOR ECTOPICDESIRES IUD REMOVAL Gross Description (test code = 0610209269) n5lduQZjSFLpoRVTDDH8IHGx RR0sjQzjuAr7zTmtMTKamoF7 eZAcNZzfz0bfIKI0y8wnejPS OicoDSMdVD9fCMmeSPYuAX5k ZmUwXGRlZmYxXHBhcGVydzEy YzAyIBAvcIQquNJ0DRDeDI5b gdnoTLizDXjqSKLputM0ECCf wKQwK9UnEGPfAN2uiyboPFJ4 XCHVRtdtQm3wmMSufAlpQuDn ZmNoYXJzZXQwXGZuaWwgQXJp XCx7rE4RGfdvDMG2JNWLAugr NfjezWwea8JvgGTuSUNnVIds aWQgNTEwMDAgXFxkYiBPVlIg WhM7QKUoSjS1JzR4RLq4YRJD QBCzPwv6FlF3LZF4WTc4NGZh CJ3uVYyqnINrOZwyVysoYPvt G195ZJglFFHpI0NpU0YgWZvh ZyBcXGlkIDUxMDAyIFxcZGIg S1QNPKOzTFq3CHazXsRzMXn9 OSyaL4BWZIPiLGQ2NXFsGjd0 XqX2BGo9CBTTRf9iRHwlSQZ3 LCR9TGE7UQv1ZTTdNPRaDlBy HIHzDJXnAHehkIIsRQ9jqNpj DQXbDX9TLPByGDebUCUsXcPe B3TCY6lVTC2iOCfuvKEmyLja bwKpKOWqdeVHVzvhAGMiPB8T VQTfDPjjFJa1gjVxMSWuHrTa WXRcS46hn5OJl6JhZV6JSZx7 mrTdsmvvfO4qOQSwbnXiz8Zz MFxlcGljWHNhMzAgDQpTcGVj lK7dakGCLRizCYPeE7JppqMn FHglPQPtxd7lrTxlQLsdPiHd JHLno2z3oJH6vIEwnVN7aPSm wIslMK6ldJAtUZYVGG79zARi ojfzCtNaeDdpvOqpipN7bJSh JJLwMSW1TkOyjzPqK35nv6pl bIGpc0DyWTVgoZ4grTRksLFg LXBpbmsgZGlsYXRlZCBzZWdt JJ33PS2kVATgxYHxeFC0CAEc UpRgaF4kkGXkZGC5DrEhTCUt SZEvpWRmxfXtSL5swSfsKyfp AC7tZTMvUVyuTRBhTI0mcQCb PKE9rUNcSQFtc3Ptr9EzvHRc NAEtJ9RhSFg2VZumDjIoLHWg BIBeGWJvtL4wZREkqB81AcDy G5WnmNUubQcye9FmyQzfdamj HbUdPXOmGHbaSWIqhBQ4RLKr zFLnBS1ap7x5vDFsIIMlWZQm UTOccH18sGThYFAmj95aVFSw n5IeVLYEiuVaGTTjuIGvsfNy pOXbhOYyf7DtH9zvatklfdwe BBOehVfgUAGbLPPisb3gh9d1 RYhdRC19yVUkSFTdVG4pQLWz KDAaxNHnxI6lokLwigOlrdBq dpTigNHjqMSgiWO4KJQkiZ5e LVBpREtdWG1LQSDsrKCSQNF3 IL0bAHluHFMxZ8SlK6UjxeX2 CZFojpPOJnxuTlebaPfev6Ty dCBcXHNnIFxcaWQgNTEwMDIg ERmdLnDGSaByNbR8LDErGjH6 KgM7BBm0OQPQGoAzOjWvDsIp ZWB6QLMvVHk6MTe0OFuHBzSr BOP2TnW8GAD7BDD6XqC7JKna mZLrEKkaz4UsRxCwDEBqGQzr uhA7MDPmzbRnm8QyVUXlBMDa Y8qrWiCtUGEKHplqujIyMOCY RUNJTUVOIEJcZnMyMlxwYXIg DQpccGFyZCANClxwbGFpblxs dHJjaFxmczIyXGVwaWNOZXN0 IX3fRJHRXebheXTdYBJiqWda NImpjF3zXFNoByQdKHSvV1xe JaFgOS1TS1RgX0fqQV1wPYPu cyByZWNlaXZlZCBmcmVzaCBs YSQiwXpiPHU5nWIdXXShRJSd EQRmIP31SOnIFCCftnOcWTgt VUggbnVtYmVyIGBgIGludHJh iJKaeisdETArKSOsT9NtvgJc y7VctNkkGgYfB1L9QAFjRBUh p04hdRX3wdKnKpUsPSSifxzs MBC0sCh7LDTmsVYinVqhELth z7TwjTjcvQ41DUI3KXmwaLXa oEHbiyonCPSpPIWeV4IpZFVo kfknHDQvzwW0bKFns9nubYLw b6GeuAlhIMxgzQZvjhVSXVa1 sNAwGrNrVQJwvSZiYF5gQMV9 cpKxBPJnNfLvqNZrUS7ksUdh WZ8eHBBzXMVgrKNhcvOhbEQq ZXRlciBhbmQgdGhlIHRvcCBj lj3bhrGhJXIxeDFlu3MyGSSh Sp83KVhvXS2uJStdNK5iPUJi FX6pAGrzvvVbtNRcZPPhf4Eg tWYue7YmcW3xRDb4QqBbI94f gM9yuHFiX3JyQSIgLQLrCEAt YFGoCM0oHJ9mPTPnFMiuIPVb NF7eoDDeZMRogMDkG2qmIOE7 avE8xMMpYe04sI8oJK9aXBDv OTGjXPLeNAR8JY8xNDsrr3Ym IM1zSKweEQrvePiggR7plpTm iHZiHGIjOSGyo0HuWpJRuTLm k0GrJ0glDP9erJByNa8iEXpx v7QbKLD7RF8qnzZ2wH3oKU8r bHkuXHBhciANClxzYjBcZXBp F7wkYdGoLNoofJGqSU1CYbJe fJEmMQFRpZheylU5EGZOBRPe PCJAULtmqPZjMP7WTSDmDeKl HLYiQ4kiBSYgWH7NOVEsaWPP AER1FA8wWTgyEPQhJ9LhI9Ct bmZ5w2rdiCner1UupTQzUJ5g tOGdMD2IYTKcsfWpVUz4 Disclaimer (test code = [id number]) s6htkJQiNFDdt9ijQIIbmZXv ZzEwMzNcZnRuYmpcdWMxIHtc tjWsETyup9ZgQ6MfZgBbENew bnNpXGRlZmxhbmcxMDMzXGZ0 zcFoLIYuECujJGRbFYxuLr2q gWHeeJqeCxUmKMSzg7iwhmJT ARrwMgVgY656YQZlUZqrt2vr s9EbPYAonORir2F1IORWzryo cVn2qXmiF86ty1Y0WchoF0mo CLKiZRGcB5QqDP9fJPArBdt2 LCL5TXN4FKIfSUZlA0TmIU1f XYBluXDfGGp3l9pkcKsyVJJr ZMV0v4ccXZwlgtShCA5wxk7a kLh0m4bmwyNsXNRzMWRukXPF IMTnU8BjaSncSs7hvDi9oJaq ZhtuDEG6Sra1UF8hei22crl9 kDrcIYJeiwtnUpS2RHguRQQb avuvQBb5GUclJGJqxAY3WPVi zLEsT9IsBILuUT2fgvu6BAU9 UGavDNOwUkO1BGPaqRRsWNHj iNifKAkjp838OLK0IhZfFC3b D4Uqg3H2iB3ikYRmBPFzoQHd VtHrAHPpgm7eqZYwBKktm3Hk DBV4siW5mVAurKCrPOTeLP85 Hvcal8VtIuuru9VmG57wsVS1 EVidp9qhCZ2jFvA3wqNxZFye l1tmjI2vGvA3UUloEJ1iHZ0u JUWpuE3hiwgqLYVtBcCqulaw ZVJxeLtojzPtGz6hkHscPCW4 GJmvV7tktN7hLeZ1ZQgsB6rb iI4aILb5AEgxoWW5FZTrgR6d SP9nhmswh9bgGQaaUWemZHXd ziR7lmJ9ZPHztZPlC3KctH2y IJCzWC0ozcjsh2igRAE3EWxr HBAiQSG7YaDqDLMzu3Xkgay6 RlJgn9QrmXQrBRfzR27ge856 ZGCsayMqS1qziKYhaycucJFn wrljKFsodhG1JRTejqFxt4Kg JFSnXTN8ABbhWDwzoIAtIWOg xCksm4qaS3XbaEAhHSYfMRfg XGYxXGZzMjBcbGFuZzEwMzNc aGljaFxmMVxkYmNoXGYxXGxv T3akAtFiF0IySYHfHhSamJPh I5xkHZqyyeAvNKEhheZjsIH9 DPmkH7y2TZXpfxVzlCy0brQp GpCfGDXjDUS8RMcwsXWcYOOq t6FaitzoxTNuJq0xwRUgIKHm hH2oUESrUGUiYUreHH9yaDj8 RHVFsKJlaGIiXlCSRJVlAX81 xyRlRLGBuvqnb0W4AOscXZWl b6UglTPdJ3aqa8SdXQVbo23k HZ7xx7A9a0xiTUM3YD3zl9Xe IQZqcEGkwKWdWJSse5Wiexea a7JuNZKrsdIrh5IjLTJsceMl fILmNVUkukQskn0uvpVaYWTp CMKoF9XmlyxttXcmqcJdWLWw pa2kxiLqETT5YBQHGAPnROIr g6JxqR4fmQMHTFB4sVHpka0y osHWdISbKHKmtf61CTSbOS0s O4hdQAIqFHFcyqAubEMnu7Ji NZNoqDY5pPDqYR2VQrEJg05h IGFuZCBEcnVnIEFkbWluaXN0 beN7nW9bZXrRJVJeNiv+IFRo PZRURDDcBO2itrVck3TiddTn jFtfJLNvuSUfp4ZoiRSfz8Nb uObaj8BoeHQqvYKkZH2wKGMu clxwYXIgVVRNQiBMYWJvcmF0 j6ZkLOZsXSZgPCH2hHvkwur6 PVGpfL0oLIEcB6rlmxvsRGbg DCFcv9FpiL1fcQMLsLEiq4Gm hFTxpRTIsHLoGV5zquQpUVoR BNgVDDJ1cbRoVEPjf5FqPJhd J9eqN30hvJgogZs4gXT7GYR4 qB2hYvu+IFxwYXJccGFyIEFw uJVpdRAuIQUqaMeiisLjD4Pl vbUbfV1isDYwtyYpOD9gJR2a U9P1bVLvIOWionOln8ctFXke dmUgYmVlbiByZXZpZXdlZCBm v7KtZZasKEJ1HGreewSeknQw dWRpbmcgSCZFLCBTcGVjaWFs FRS6ROjvpxFhqgCbLI9iqT1s hVgeiV9flOFnhCW4jotgNEHt VYRbmTgmLFMyFN4qsTybkC9h SqPhVfPnJSppKQ9tGVRzN9hn tZEvTLQqHYGiN8ozXsQqcR0k aFxmMVxjZjJcZnMyMFxwYXJc cGFyXHBsYWluXGYxXGZzMjBc bGFuZzEwMzNcaGljaFxmMVxk QnEpSKQaLZixN2dmFrLhZ4Rg UMGjTyQrcMJrO1lcCHfeFDB5 UOUzEA0qkVRdVA04dOKez9ar FAtffInfoi8rK93rtOReIKat uAfoQNDkx96gl7MrNWZdfpUw ad7iDEYxzlL1uS7yXFOpoPhe ZKUuhCKcKYAtq0DvURjhoRBs emVkIGdsYXNzIHNsaWRlcyB0 byBhcnJpdmUgYXQgdGhlIGFi h0QsBFRnEOvja1Ejal2ulERy LJVcftTEbGmbgRJboX8wH5Mw THBuLIHwxe9jFWZsyL2mVYql j9UxezdeZCWmXCRbYNPibxRe ev7eCNQvzWZIWA3KVDqwzJQc u5UjnuKeZ3gBTWY4TLFtEuDf ZaalQWZviZIhrSSfEDShdo95 HVRfuI1idAwqAIDwuN6fqA5u iXgixG7bMyYyCnNqBQksBR3w EOCiR3jniJXzJZKjYXWxU9db IqRbwN0vmGuoVSltLmDgSiTw UTkaACY0mA== Embedded Images (test code = 3934116622) [facility] ([id number])[facility]23-[facility]-15 04:27:58* Test Item Value Reference Range Interpretation Comme nts NA (test code = 6824667016) 140 mmol/L 135-145 K (test code = 9167119256) 3.3 mmol/L 3.5-5.0 L CL (test code = 0728528470) 105 mmol/L 98-108 CO2 TOTAL (test code = 6692535080) 21 mmol/L 23-31 L AGAP (test code = 9448502346) 14 2-16 BUN (test code = 7142457457) 10 mg/dL 7-23 GLUCOSE (test code = 9831907526) 95 mg/dL 70-110 CREATININE (test code = 3770889114) 0.58 mg/dL 0.50-1.04 TOTAL BILI (test code = 8229870745) 0.4 mg/dL 0.1-1.1 CALCIUM (test code = 0160891488) 9.5 mg/dL 8.6-10.6 T PROTEIN (test code = 4570204652) 8.0 g/dL 6.3-8.2 ALBUMIN (test code = 6349769380) 4.9 g/dL 3.5-5.0 ALK PHOS (test code = 9371336951) 48 U/L 34-122 ALTv (test code = 1742-6) 21 U/L 5-35 AST(SGOT) (test code = 8878773948) 27 U/L 13-40 eGFR (test code = 6434669966) 128.8 mL/min/1.73m2 ENE (test code = ENE) [...] imaging tests). Lab Interpretation (test code = 66040-7) Abnormal [facility] WITH [id number] 04:17:55* Test Item Value Reference Range Interpretation Comme nts WBC (test code = 6690-2) 8.99 See_Comment [Automated [employer]] The system which generated this result transmitted reference range: 4.30 - 11.10 10*3/?L. The reference range was not used to interpret this result as normal/abnormal. RBC (test code = 789-8) 4.48 See_Comment [Automated [employer]] The system which generated this result transmitted [...] 33.5 g/dL 31.6-35.1 RDW-SD (test code = 34213-8) 43.0 fL 39.0-49.9 RDW-CV (test code = 788-0) 12.6 % 12.0-15.5 PLT (test code = 777-3) 375 See_Comment H [Automated messa ge] The system which generated this result transmitted reference range: 166 - 358 10*3/?L. The reference range was not used to interpret this result as normal/abnormal. MPV (test code = 63255-6) 10.3 fL 9.5-12.9 NRBC/100 WBC (test code = 8670526848) 0.0 See_Comment [Automated [employer] ssage] The system which generated this result transmitted reference range: 0.0 - 10.0 /100 WBCs. The reference range was not used to interpret this result as normal/abnormal. NRBC x10^3 (test code = 1687909730) See_Comment [Automated messa ge] The system which generated this result transmitted reference range: 10*3/?L. The reference range was not used to interpret this result as normal/abnormal. GRAN MAT (NEUT) % (test code = 770-8) 68.1 % IMM GRAN % (test code = 9795494130) 0.20 % LYMPH % (test code = 736-9) 24.7 % MONO % (test code = 5905-5) 6.6 % EOS % (test code = 713-8) 0.3 % BASO % (test code = 706-2) 0.1 % GRAN MAT x10^3(ANC) (test code = 7062892126) 6.12 10*3/uL 1.88-7.09 IMM GRAN x10^3 (test code = 3875803543) 0.00-0.06 LYMPH x10^3 (test code = 731-0) 2.22 10*3/uL 1.32-3.29 MONO x10^3 (test code = 742-7) 0.59 10*3/uL 0.33-0.92 EOS x10^3 (test code = 711-2) 0.03 10*3/uL 0.03-0.39 BASO x10^3 (test code = 704-7) 0.01-0.07 Lab Interpretation (test code = 85259-8) Abnormal [facility] with Differential - On Postoperative Day # [id number] 10:46:57* Test Item Value Reference Range Interpretation [...] 33.5 g/dL 31.6-35.1 RDW-SD (test code = 38867-1) 40.9 fL 39.0-49.9 RDW-CV (test code = 788-0) 12.5 % 12.0-15.5 PLT (test code = 777-3) 330 See_Comment [Automated messa ge] The system which generated this result transmitted reference range: 166 - 358 10*3/?L. The reference range was not used to interpret this result as normal/abnormal. MPV (test code = 72748-0) 10.2 fL 9.5-12.9 NRBC/100 WBC (test code = 0498457605) 0.0 See_Comment [Automated [employer] ssage] The system which generated this result transmitted reference range: 0.0 - 10.0 /100 WBCs. The reference range was not used to interpret this result as normal/abnormal. NRBC x10^3 (test code = 1024546910) See_Comment [Automated messa ge] The system which generated this result transmitted reference range: 10*3/?L. The reference range was not used to interpret this result as normal/abnormal. GRAN MAT (NEUT) % (test code = 770-8) 88.5 % IMM GRAN % (test code = 0125436473) 0.30 % LYMPH % (test code = 736-9) 9.0 % MONO % (test code = 5905-5) 2.0 % EOS % (test code = 713-8) 0.0 % BASO % (test code = 706-2) 0.2 % GRAN MAT x10^3(ANC) (test code = 4173230579) 5.80 10*3/uL 1.88-7.09 IMM GRAN x10^3 (test code = 3544995255) 0.00-0.06 LYMPH x10^3 (test code = 731-0) 0.59 10*3/uL 1.32-3.29 L MONO x10^3 (test code = 742-7) 0.13 10*3/uL 0.33-0.92 L EOS x10^3 (test code = 711-2) 0.03-0.39 L BASO x10^3 (test code = 704-7) 0.01-0.07 Lab Interpretation (test code = 16495-5) Abnormal [facility] with Differential - On Postoperative Day # [id number] 10:46:57* Test Item Value Reference Range Interpretation Comme nts WBC (test code = 6690-2) 6.55 See_Comment [Automated [employer] ge] The system which generated this result transmitted reference range: 4.30 - 11.10 10*3/?L. The reference range was not used to interpret this result as normal/abnormal. RBC (test code = 789-8) 4.14 See_Comment [Automated [employer] ge] The system which generated this result [...] 33.5 g/dL 31.6-35.1 RDW-SD (test code = 56574-2) 40.9 fL 39.0-49.9 RDW-CV (test code = 788-0) 12.5 % 12.0-15.5 PLT (test code = 777-3) 330 See_Comment [Automated messa ge] The system which generated this result transmitted reference range: 166 - 358 10*3/?L. The reference range was not used to interpret this result as normal/abnormal. MPV (test code = 33801-0) 10.2 fL 9.5-12.9 NRBC/100 WBC (test code = 4818551175) 0.0 See_Comment [Automated [employer] ssage] The system which generated this result transmitted reference range: 0.0 - 10.0 /100 WBCs. The reference range was not used to interpret this result as normal/abnormal. NRBC x10^3 (test code = 2731041946) See_Comment [Automated messa ge] The system which generated this result transmitted reference range: 10*3/?L. The reference range was not used to interpret this result as normal/abnormal. GRAN MAT (NEUT) % (test code = 770-8) 88.5 % IMM GRAN % (test code = 5692522294) 0.30 % LYMPH % (test code = 736-9) 9.0 % MONO % (test code = 5905-5) 2.0 % EOS % (test code = 713-8) 0.0 % BASO % (test code = 706-2) 0.2 % GRAN MAT x10^3(ANC) (test code = 6022550137) 5.80 10*3/uL 1.88-7.09 IMM GRAN x10^3 (test code = 3073076139) 0.00-0.06 LYMPH x10^3 (test code = 731-0) 0.59 10*3/uL 1.32-3.29 L MONO x10^3 (test code = 742-7) 0.13 10*3/uL 0.33-0.92 L EOS x10^3 (test code = 711-2) 0.03-0.39 L BASO x10^3 (test code = 704-7) 0.01-0.07 Lab Interpretation (test code = 24070-4) Abnormal [facility] with Differential - On Postoperative Day # [id number] 10:46:57* Test Item Value Reference Range Interpretation [...] 33.5 g/dL 31.6-35.1 RDW-SD (test code = 04773-9) 40.9 fL 39.0-49.9 RDW-CV (test code = 788-0) 12.5 % 12.0-15.5 PLT (test code = 777-3) 330 See_Comment [Automated messa ge] The system which generated this result transmitted reference range: 166 - 358 10*3/?L. The reference range was not used to interpret this result as normal/abnormal. MPV (test code = 05633-1) 10.2 fL 9.5-12.9 NRBC/100 WBC (test code = 4859783791) 0.0 See_Comment [Automated me ssage] The system which generated this result transmitted reference range: 0.0 - 10.0 /100 WBCs. The reference range was not used to interpret this result as normal/abnormal. NRBC x10^3 (test code = 9713783546) See_Comment [Automated messa ge] The system which generated this result transmitted reference range: 10*3/?L. The reference range was not used to interpret this result as normal/abnormal. GRAN MAT (NEUT) % (test code = 770-8) 88.5 % IMM GRAN % (test code = 7756241300) 0.30 % LYMPH % (test code = 736-9) 9.0 % MONO % (test code = 5905-5) 2.0 % EOS % (test code = 713-8) 0.0 % BASO % (test code = 706-2) 0.2 % GRAN MAT x10^3(ANC) (test code = 5739301074) 5.80 10*3/uL 1.88-7.09 IMM GRAN x10^3 (test code = 2384455570) 0.00-0.06 LYMPH x10^3 (test code = 731-0) 0.59 10*3/uL 1.32-3.29 L MONO x10^3 (test code = 742-7) 0.13 10*3/uL 0.33-0.92 L EOS x10^3 (test code = 711-2) 0.03-0.39 L BASO x10^3 (test code = 704-7) 0.01-0.07 Lab Interpretation (test code = 79692-9) Abnormal [facility] [id number] 20:30:00* Test Item Value Reference Range Interpretation Comme nts POCT PREG (test code = 1605) Positive On board controls acceptable with C Line (test code = 3574) Yes POCT PREG LOT # (test code = 3575) POCT PREG TEST DATE ( test code = 3576) [facility] [id number] 20:30:00* Test Item Value Reference Range Interpretation Comme nts POCT PREG (test code = 1605) Positive On board controls acceptable with C Line (test code = 3574) Yes POCT PREG LOT # (test code = 3575) POCT PREG TEST DATE ( test code = 3576) [facility] URINALYSIS W/O SPECIFIC [id number] 20:29:00* Test Item Value Reference Range Interpretation [...] = 3257) 250 Negative - Negati ve [facility] URINALYSIS W/O SPECIFIC [id number] 20:29:00* Test Item Value Reference Range Interpretation [...] = 3257) 250 Negative - Negati ve [facility] [id number] 13:30:00* Test Item Value Reference Range Interpretation Comme nts POCT PREG (test code = 1605) Negative On board controls acceptable with C Line (test code = 3574) Yes POCT PREG LOT # (test code = 3575) [id number] POCT PREG TEST DATE ( test code = 3576) 06/29/2024 [facility] [id number] 13:30:00* Test Item Value Reference Range Interpretation Comme nts POCT PREG (test code = 1605) Negative On board controls acceptable with C Line (test code = 3574) Yes POCT PREG LOT # (test code = 3575) [id number] POCT PREG TEST DATE ( test code = 3576) 06/29/2024 [facility] [id number] 16:12:00* Test Item Value Reference Range Interpretation Comme nts POCT PREG (test code = 1605) Negative On board controls acceptable with C Line (test code = 3574) Yes POCT PREG LOT # (test code = 3575) POCT PREG TEST DATE ( test code = 3576) [facility] [id number] 16:12:00* Test Item Value Reference Range Interpretation Comme nts POCT PREG (test code = 1605) Negative On board controls acceptable with C Line (test code = 3574) Yes POCT PREG LOT # (test code = 3575) POCT PREG TEST DATE ( test code = 3576) [facility] [id number] 15:12:00* Test Item Value Reference Range Interpretation Comme nts POCT PREG (test code = 1605) Negative On board controls acceptable with C Line (test code = 3574) Yes POCT PREG LOT # (test code = 3575) POCT PREG TEST DATE ( test code = 3576) [facility] [id number] 15:12:00* Test Item Value Reference Range Interpretation Comme nts POCT PREG (test code = 1605) Negative On board controls acceptable with C Line (test code = 3574) Yes POCT PREG LOT # (test code = 3575) POCT PREG TEST DATE ( test code = 3576) [facility] with [id number] 10:05:29* Test Item Value Reference Range Interpretation [...] g/dL 31.6-35.1 L RDW-SD (test code = 76123-2) 47.8 fL 39-49.9 RDW-CV (test code = 788-0) 14.9 % 12-15.5 PLT (test code = 777-3) See_Comment [Automated message] The system which generated this result transmitted reference range: 166 - 358 10*3/?L. The reference range was not used to interpret this result as normal/abnormal. MPV (test code = 94593-2) 11.0 fL 9.5-12.9 NRBC/100 WBC (test code = 5661050859) See_Comment [Automated message] The system which generated this result transmitted reference range: 0.0 - 10.0 /100 WBCs. The reference range was not used to interpret this result as normal/abnormal. NRBC x10^3 (test code = 0723118709) See_Comment [Automated message] The system which generated this result transmitted reference range: 10*3/?L. The reference range was not used to interpret this result as normal/abnormal. GRAN MAT (NEUT) % (test code = 770-8) 80.2 % IMM GRAN % (test code = 8014484568) 0.70 % LYMPH % (test code = 736-9) 12.2 % MONO % (test code = 5905-5) 5.7 % EOS % (test code = 713-8) 0.9 % BASO % (test code = 706-2) 0.3 % GRAN MAT x10^3(ANC) (test code = 2509866918) 11.46 10*3/uL 1.88-7.09 H IMM GRAN x10^3 (test code = 3402436120) 0.10 10*3/uL 0-0.06 H LYMPH x10^3 (test code = 731-0) 1.75 10*3/uL 1.32-3.29 MONO x10^3 (test code = 742-7) 0.81 10*3/uL 0.33-0.92 EOS x10^3 (test code = 711-2) 0.13 10*3/uL 0.03-0.39 BASO x10^3 (test code = 704-7) 0.04 10*3/uL 0.01-0.07 Lab Interpretation (test code = 24989-5) [facility] [id number] 23:51:54* Test Item Value Reference Range Interpretation Comme nts RHIG CANDIDATE? (test code = 5055) No- see comment Patient is not a candidate for RhIg- Patient is Rh Positive.Performed at [facility] Laboratory Services - [facility] Blood [address] [place] [address] Free: [phone] No. [id number] [facility] and Screen - ONCE [id number] 13:33:07* Test Item Value Reference Range Interpretation Comme nts ABO & RH (test code = 20) O Positive Performed at [facility] Laboratory Services - [facility] Blood [address] [place], [place] [address]Toll Free: [phone] No. [id number] IAT (test code = 1185) Negative Performed at [facility] Laboratory Services - [facility] Blood [address] [place], [place] [address]Toll Free: [phone] No. [id number] [facility] W/O SPECIFIC [id number] 15:03:00* Test Item Value Reference Range Interpretation [...] = 3257) n/a Negative - Negati ve [facility] SPECIFIC [id number] 15:57:00* Test Item Value Reference Range Interpretation [...] = 3257) n/a Negative - Negati ve [facility]/O SPECIFIC [id number] 16:18:00* Test Item Value Reference Range Interpretation [...] = 3257) n/a Negative - Negati ve [facility] History and Physical Notes Date/Time Note Provider [...] pain, gallstones History of Present Illness: Africa Wang is a [...] Lower 09/13/2017 Surgeon: Bereket Castelan MD; Location: [facility] DILATION OF CERVICAL CANAL 08/30/2017 Allergies: No [...] abuse or violence. Yes one inside cat. Rastafarian: Voodoo Lives with mother. Works in [employer]. Review of Systems: A 14 point [...] othopnea, claudication, edema, coronary artery disease/history of [place] Respiratory: Cough, sputum production, hemoptysis, wheezing, shortness [...] agree with the above report. Assessment: Africa Wang is a 22 year old female who presents with abdominal pain secondary to gallstones. Plan: Schedule laparoscopic cholecystectomy with cholangiogram Risks (pain, bleeding, infection, scar, injury to surrounding structures, bile leak, retained stones, need for further procedures), benefits, alternatives of laparoscopic cholecystectomy with intraoperative cholangiogram were discussed with the patient; all questions answered; informed consent obtained. Mily Delgadillo M.D. 02/03/2023 08:49 [facility]
[2024-08-02 17:11] LABS: Specific Gravity 1.019 (1.005-1.030)
--- NOTE | 2024-08-02 17:11 | ER ---
Nurse's Notes [facility] Name: Mckenzie Wang Age: 24 yrs Sex: Female : 2000 Arrival Date: 08/02/2024 Time: 15:20 Bed 17 Private MD: Diagnosis: Cellulitis of buttock Presentation: 08/02 15:28 Chief complaint: Patient states: Abscess to L buttocks for 2 days. No drainage but ll1 states it hard and hot. Coronavirus screen: Client denies travel out of the [place] in the last 14 days. At this time, the client does not indicate any symptoms associated with coronavirus-19. Ebola Screen: Patient denies travel to an Ebola-affected area in the 21 days before illness onset. 15:28 Method Of Arrival: Ambulatory ll1 15:29 Initial Sepsis Screen: Does the patient meet any 2 criteria? No. Patient's initial ll1 sepsis screen is negative. Does the patient have a suspected source of infection? No. Patient's initial sepsis screen is negative. Risk Assessment: Do you want to hurt yourself or someone else? Patient reports no desire to harm self or others. Onset of symptoms was August 01, 2024. 15:29 Acuity: ROSA 3 ll1 Triage Assessment: 15:28 General: Appears uncomfortable, Behavior is calm, cooperative, appropriate for age. ll1 Pain: Complains of pain in L buttocks Pain radiates to left leg. Derm: Abscess located on L buttocks. Historical: - Allergies: 15:26 No Known Allergies; ll1 - PMHx: 15:26 Bipolar disorder; ll1 - PSHx: 15:26 Cholecystectomy; D\T\C; Left felopian tube; ll1 - Immunization history:: Adult Immunizations up to date. - Infectious Disease History:: Denies. - Social history:: Smoking status: Reported history of juuling and/or vaping. Screenin:54 [facility] ED Fall Risk Assessment (Adult) History of falling in the last 3 months, kc6 including since admission No falls in past 3 months (0 pts) Confusion or Disorientation No (0 pts) Intoxicated or Sedated No (0 pts) Impaired Gait No (0 pts) Mobility Assist Device Used No (0 pt) Altered Elimination No (0 pt) Score/Fall Risk Level 0 - 2 = Low Risk Oriented to surroundings, Maintained a safe environment. Abuse screen: Denies threats or abuse. Denies injuries from another. Nutritional screening: No deficits noted. Tuberculosis screening: No symptoms or risk factors identified. Assessment: 16:23 Reassessment: Patient and/or family updated on plan of care and expected duration. Pain ll1 level reassessed. 17:05 General: Appears in no apparent distress. comfortable, well groomed, well developed, kc6 Behavior is calm, cooperative, appropriate for age. Pain: Complains of pain in left gluteus adam Pain does not radiate. Neuro: Level of Consciousness is awake, alert, obeys commands, Oriented to person, place, time, situation, Appropriate for age. Cardiovascular: Capillary refill < 3 seconds. Respiratory: Airway is patent Trachea midline Respiratory effort is even, unlabored, Respiratory pattern is regular, symmetrical. GI: No signs and/or symptoms were reported involving the gastrointestinal system. : No signs and/or symptoms were reported regarding the genitourinary system. EENT: No signs and/or symptoms were reported regarding the EENT system. Derm: Skin is intact, is healthy with good turgor, Skin is pink, warm \T\ dry. Musculoskeletal: No signs and/or symptoms reported regarding the musculoskeletal system. Circulation, motion, and sensation intact. Range of motion: intact in all extremities. Injury Description: Bite sustained to left gluteus adam caused by an unknown animal, is infected, from insect. Vital Signs: 15:28 BP 116 / 52; Pulse 80; Resp 17; Temp 97.7; Pulse Ox 100% on R/A; Weight 52.16 kg; ll1 Height 5 ft. 1 in. ; Pain 10/10; 15:28 Body Mass Index 21.73 (52.16 kg, 154.94 cm) ll1 15:28 Pain Scale: Adult ll1 ED Course: 15:24 Patient arrived in ED. al6 15:26 Arm band placed on. ll1 15:28 Gio Molina PA is PHCP. cp 15:28 Gio Brandt MD is Attending Physician. cp 15:29 Triage completed. ll1 16:21 Patient placed in an exam room, on a stretcher. kj2 16:54 Duyen Bryant RN is Primary Nurse. kc6 16:54 Patient has correct armband on for positive identification. Bed in low position. Call kc6 light in reach. Side rails up X 1. Pulse ox on. NIBP on. Door closed. Noise minimized. Lights dimmed. Pillow given. 16:54 Patient maintains SpO2 saturation greater than 95% on room air. kc6 17:04 Urine collected: clean catch specimen, cloudy. kc6 17:14 No provider procedures requiring assistance completed. Patient did not have IV access kc6 during this emergency room visit. Administered Medications: No medications were administered Medication: 17:15 VIS not applicable for this client. kc6 Outcome: 17:11 Discharge ordered by . willy 17:14 Discharged to home ambulatory, kc6 17:14 Condition: good 17:14 Discharge instructions given to patient, Instructed on discharge instructions, follow up and referral plans. medication usage, wound care, Demonstrated understanding of instructions, follow-up care, medications, wound care, Prescriptions given X 1, 17:15 Patient left the ED. kc6 Signatures: Gio Molina PA PA cp Lewis, Lynsay RN RN ll1 Duyen Bryant RN RN kc6 Joanna Franz RN RN kj2 Ghislaine Metzger6
--- NOTE | 2024-08-02 17:11 | EDPHYS ---
Physician Documentation [facility] Name: Mckenzie Wang Age: 24 yrs Sex: Female : 2000 Arrival Date: 08/02/2024 Time: 15:20 Bed 17 Private MD: ED Physician Gio Brandt HPI: 08/02 16:55 This 24 yrs old Female presents to ER via Ambulatory with complaints of Insect Bite. cp 16:55 by unknown insect. cp 16:55 Onset: The symptoms/episode began/occurred 2 day(s) ago. Associated signs and symptoms: cp Pertinent positives: erythema at site, pain at site, tenderness, Pertinent negatives: fever. Severity of symptoms: in the emergency department the symptoms are unchanged, despite home interventions. Historical: - Allergies: 15:26 No Known Allergies; ll1 - PMHx: 15:26 Bipolar disorder; ll1 - PSHx: 15:26 Cholecystectomy; D\T\C; Left felopian tube; ll1 - Immunization history:: Adult Immunizations up to date. - Infectious Disease History:: Denies. - Social history:: Smoking status: Reported history of juuling and/or vaping. ROS: 17:00 Constitutional: Negative for body aches, chills, fever, cp 17:00 Skin: Positive for erythema, of the left buttock, insect bite, cp 17:00 All other systems are negative, Exam: 17:03 Constitutional: The patient appears in no acute distress, alert, awake, non-toxic, well cp developed, well nourished, 17:03 Head/Face: Normocephalic, atraumatic. cp 17:03 Chest/axilla: Inspection: normal, 17:03 Cardiovascular: Rate: normal, 17:03 Respiratory: the patient does not display signs of respiratory distress, Respirations: normal, no use of accessory muscles, no retractions, labored breathing, is not present, 17:03 Abdomen/GI: Inspection: abdomen appears normal, 17:03 Skin: small area of well circumscribed erythema, induration to left buttock. Vital Signs: 15:28 BP 116 / 52; Pulse 80; Resp 17; Temp 97.7; Pulse Ox 100% on R/A; Weight 52.16 kg; ll1 Height 5 ft. 1 in. ; Pain 10/10; 15:28 Body Mass Index 21.73 (52.16 kg, 154.94 cm) ll1 15:28 Pain Scale: Adult ll1 MDM: 15:34 Medical Screening Exam initiated cp 17:00 Differential diagnosis: cellulitis, abscess, insect bite. cp 17:11 Data reviewed: vital signs, nurses notes, and as a result, I will discharge patient. cp 17:11 Counseling: I had a detailed discussion with the patient and/or guardian regarding the cp historical points, exam findings, and any diagnostic results supporting the discharge/admit diagnosis, to return to the emergency department if symptoms worsen or persist or if there are any questions or concerns that arise at home. 08/02 16:54 Order name: Test, Urine cp 08/02 16:54 Order name: Urinalysis w/ reflexes cp Administered Medications: No medications were administered Disposition: 08/03 07:57 Chart complete. cp Disposition Summary: 08/02/24 17:11 Discharge Ordered Notes: Location: Home cp Problem: new cp Symptoms: are unchanged cp Condition: Stable cp Diagnosis - Cellulitis of buttock cp Followup: cp - With: Private Physician - When: 2 - 3 days - Reason: Worsening of condition Discharge Instructions: - Discharge Summary Sheet cp - Cellulitis, Adult cp Forms: - Medication Reconciliation Form cp - Antibiotic Education cp - Prescription Opioid Use cp - Patient Portal Instructions cp - Leadership Thank You Letter cp Prescriptions: - Clindamycin HCl 300 mg Oral capsule - take 1 capsule ORAL route every 8 hours for 10 days; 30 capsule; Refills: 0, cp Product Selection Permitted Addendum: 08/08/2024 07:21 Co-signature as Attending Physician, Gio Brandt MD I agree with the assessment and c tolliver plan of care. Signatures: Dispatcher [employer] Gio Daly MD MD cha Page, Corey, PA PA cp Freddie Carrion RN RN ll1 Duyen Bryant RN RN kc6
[2024-08-02 17:14] LABS: Specific Gravity 1.019 (1.005-1.030); Transitional Epithelial <5 /HPF (None Seen); Urine Bacteria <20 /HPF (<20); Urine Bilirubin NEGATIVE (Negative); Urine Blood Negative (Negative); Urine Clarity Extremely Turbid (Clear); Urine Color Light-Yellow (Yellow); Urine Culture Reflex Order NOT NEEDED; Urine Glucose NEGATIVE (Negative); Urine Ketones NEGATIVE (Negative); Urine Microscopic Reflex YN ORDER UMIC; Urine Mucus Slight /HPF (None Seen); Urine Nitrite NEGATIVE (Negative); Urine Protein NEGATIVE (Negative); Urine RBC <5 /HPF (None Seen); Urine Urobilinogen Normal (Normal); Urine WBC <5 /HPF (<5)
[2024-08-03 03:06] VITALS: BP 116/52; TEMP 97.7; O2SAT 100
== END 2024-08-02 17:15 | disposition home or self-care (01) ==
LOC: ER 15:20
DX: L03.317 Cellulitis of buttock (principal)
CPT/HCPCS: 81001; 81025; 99283

== ENCOUNTER 2024-08-02 19:49 | Emergency (ER) | payer SELFPAY ==
--- OUTSIDE RECORDS SUMMARY | 2024-08-02 19:55 | XMS REPORT | Continuity of Care Document ---
Author Name Unknown Address [address] [facility]. [address] [place] [address] [facility] thconnect Address [address] [facility] [address] [place] [address] Care Team Providers Care Certified Veterinary Technician Name Role Phone Marley Clement Primary Care Physician + [phone] ALYSON MICHEL Attending Clinician UnavailALYSON Sheikh Attending Clinician UnavailAlyson Sheikh DO Attending Clinician [phone] Doctor Unassigned, Artois Attending Clinician U TRISTAN Odell Attending Clinician Unavailable TRISTAN GAUTAM Attending Clinician Unavailable Tristan Gautam DO Attending Clinician [phone] CAROLYNN ESPARZA Attending Clinician Unavailable CAROLYNN ESPARZA Attending Clinician Unavailable DONALD MCGRATH Attending Clinician Unavailable NEMO PRADO Attending Clinician UnavailNEMO Harris Attending Clinician UnavailBrianne Browne PA-C Attending Clinician [phone], [facility] Attending Clinician Unavailable MARLEY FUNEZ Attending Clinician Unavailable KALINA HARO Attending Clinician KALINA Mensah Attending Clinician Jatinder marcum Doctor Unassigned, Artois Attending Clinician U KENNY Stahl Attending Clinician Unavailable Kenny Suresh Attending Clinician [phone] MILY DELGADILLO Attending Clinician Unavailable Razia Flowers Attending Clinician Mily Delgadillo MD Attending Clinician [phone] BRIANNE BRITTON Attending Clinician Unavailable Marley Clement Attending Clinician [phone] Unknown, Attending Attending Clinician Unavailab Nell Meraz MA Attending Clinician UnavailLivan Irizarry CRNA Attending Clinician [phone] Luis Levin MD Attending Clinician [phone] Pob, [facility] Main Attending Clinician Unavailabl e Only, Ad[facility] Test Attending Clinician Unavailable GIDEON SANTOS Attending Clinician Unavailable Green AMERICAN STUDIES PROFESSOR, Gideon Attending Clinician [phone] Ebrahim AMERICAN STUDIES PROFESSOR, Jerome Attending Clinician [phone], [facility] Usg Room Attending Clinician Unavaila Lesly Norton MD Attending Clinician [phone] LESLY ELLIOTT Attending Clinician UnavailCassy Pacheco MD Attending Clinician [phone] Ultrasound, [facility] Attending Clinician Unavaila Gio Catherine DO Attending Clinician [phone] Avis Roberts S Attending Clinician [phone] [place] AMERICAN STUDIES PROFESSOR, Charlene F Attending Clinician [phone] CASSY RUTHERFORD Admitting Clinician Unavailable ALYSON MICHEL Admitting Clinician Unavailab KALINA Culver Admitting Clinician CAROLYNN You Admitting Clinician Unavailable MILY DELGADILLO Admitting Clinician Unavailable Mily Delgadillo MD Admitting Clinician [phone] MARLEY FUNEZ Admitting Clinician Unavailable Carolynn Esparza MD Admitting Clinician [phone] Cassy Rutherford MD Admitting Clinician [phone] Payers Payer Name Policy Type Policy Number Effective Date Expirati on Date Source [employer]ICA[employer] [id number] 2021 00:00:00 Problems Condition Name Condition Details Condition Category Status Onset Date Resolution Date Last Treatment Date Treating Clinician Comments Source Upper abdominal pain Upper abdominal pain Disease Active 7-20 00:00: 00 [facility] Gallstones Gallstones Disease Active 7-15 00:00: 00 [facility] Well woman exam with routine gynecologi anna exam Well woman exam with routine gynecologi anna exam Disease Active 2021-07 0-04 00:00: 00 [facility] Nausea and vomiting during prior to 22 weeks gestation Nausea and vomiting during prior to 22 weeks gestation Disease Active 3-30 00:00: 00 [facility] No known active problems No known active problems Disease [facility] Pelvic pain in patient at less than 20 weeks gestation Pelvic pain in patient at less than 20 weeks gestation Disease Resolve d 2022-07 0-27 00:00: 00 2023-05-23 00:00:00 2023-05-23 13:16:43 [facility] Pelvic cramping in antepartum period Pelvic cramping in antepartum period Disease Resolve d 2022-07 0-24 00:00: 00 2023-05-23 00:00:00 2023-05-23 13:16:42 [facility] Vaginal bleeding affecting early Vaginal bleeding affecting early Disease Resolve d 2022-07 0-24 00:00: 00 2023-05-23 00:00:00 2023-05-23 13:16:46 [facility] Presence of intrauteri ne contracept magda device (IUD) Presence of intrauteri ne contracept magda device (IUD) Disease Resolve d 2021-07 1-23 00:00: 00 2023-05-23 00:00:00 2023-05-23 13:16:40 [facility] Vaginal discharge Vaginal discharge Disease Resolve d 0 3-03 00:00: 00 2023-05-10 00:00:00 2023-05-10 15:16:58 [facility] Rash and other nonspecifi c skin eruption Rash and other nonspecifi c skin eruption Disease Resolve d 0 3-03 00:00: 00 2023-05-10 00:00:00 2023-05-10 15:17:04 [facility] BMI 28.0-28.9, adult BMI 28.0-28.9, adult Disease Resolve d 2022-0 3-03 00:00: 00 2023-05-10 00:00:00 2023-05-10 15:17:02 [facility] 39 weeks gestation of 39 weeks gestation of Disease Resolve d 2021-1 0-04 00:00: 00 2022-05-12 00:00:00 2022-05-12 14:33:04 [facility] Liveborn , of victor , born in hospital by vaginal delivery Liveborn infant, of victor , born in hospital by vaginal delivery Disease Resolve d 1 0-04 00:00: 00 2022-05-12 00:00:00 2022-05-12 14:33:08 [facility] Gastroesop hageal reflux disease, unspecifie d whether esophagiti s present Gastroesop hageal reflux disease, unspecifie d whether esophagiti s present Disease Resolve d 2021-0 8-25 00:00: 2022-05-12 00:00:00 2022-05-12 14:33:10 [facility] Encounter for tubal ligation counseling Encounter for tubal ligation counseling Disease Resolve d 2021-0 7-19 00:00: 00 2022-05-12 00:00:00 2022-05-12 14:33:12 [facility] Nausea and vomiting during prior to 22 weeks gestation Nausea and vomiting during prior to 22 weeks gestation Disease Resolve d 2021-0 3-30 00:00: 00 2022-05-12 00:00:00 2022-05-12 14:33:13 [facility] High risk , antepartum High risk , antepartum Disease Resolve d 2021-0 3-30 00:00: 00 2022-05-12 00:00:00 2022-05-12 14:33:15 [facility] Tinea corporis Tinea corporis Disease Resolve d 2018-0 4-11 00:00: 00 2021-10-14 00:00:00 2021-10-14 15:53:21 [facility] Pyelonephr itis Pyelonephr itis Disease Resolve d 2019-0 2-20 00:00: 00 2021-10-14 00:00:00 2021-10-14 15:53:09 [facility] Excessive bleeding Excessive bleeding Disease Resolve d 2017-0 2-26 00:00: 00 2021-10-14 00:00:00 2021-10-14 15:53:08 [facility] 40 weeks gestation of 40 weeks gestation of Disease Resolve d 2017-0 2-13 00:00: 00 2021-10-14 00:00:00 2021-10-14 15:53:17 [facility] Normal labor and delivery Normal labor and delivery Disease Resolve d 2017-0 2-13 00:00: 00 2021-10-14 00:00:00 2021-10-14 15:53:18 [facility] Supervisio n of high-risk of young primigravi da Supervisio n of high-risk of young primigravi da Disease Resolve d 2016-07 0-09 00:00: 00 2021-10-14 00:00:00 2021-10-14 15:53:12 [facility] High risk teen in second trimester High risk teen in second trimester Disease Resolve d 2016-07 0-09 00:00: 00 2021-10-14 00:00:00 2021-10-14 15:53:13 [facility] care insufficie nt, second trimester care insufficie nt, second trimester Disease Resolve d 2016-07 0-09 00:00: 00 2021-10-14 00:00:00 2021-10-14 15:53:17 [facility] Allergies, Adverse Reactions, Alerts Allergy Name Allergy Type Status Severity Reaction(s) Onset Date Inactive Date Treating Clinician Comments Source NO KNOWN ALLERGIE S Drug Class Active [facility] Social History Social Habit Start Date Stop Date Quantity Comments Source ASSERTION 2021-08-04 00:00:00 [facility] Gender identity [facility] Alcoholic beverage intake 2024-07-28 00:00:00 2024-07-28 00:00:00 Ex-drinker (finding) [facility] Alcohol intake 2023-05-23 00:00:00 2023-05-23 00:00:00 Ex-drinker (finding) [facility] History of Social function 2023-03-01 00:00:00 2023-03-01 00:00:00 [facility] Tobacco Comment 2023-02-22 00:00:00 2023-02-22 00:00:00 vapes [facility] Tobacco use and exposure 2023-02-22 00:00:00 2023-02-22 00:00:00 Smokeless tobacco non-user [facility] Exposure to SARS-CoV-2 (event) 2022-11-05 00:00:00 2022-11-15 12:57:00 Not sure [facility] Sex assigned at 2000 00:00:00 2000 00:00:00 [facility] Smoking Status Start Date Stop Date Source Never smoked tobacco [facility] Medications Ordered Medication Name Filled Medication Name Start Date Stop Date Current Medication? Ordering Clinician Indication Dosage Frequency Signature (SIG) Comments Components Source ARIPiprazol e (ABILIFY) 10 mg tablet 07-28 00:00: 00 08-28 05:59 :00 Yes [id number] 10mg Take 1 tablet by mouth in the morning for 30 days. [facility] escitalopra m oxalate 10 mg tablet 07-28 00:00: 00 08-28 05:59 :00 Yes [id number] 10mg Take 1 tablet by mouth in the morning for 30 days. [facility] cefTRIAXone (ROCEPHIN) 350 mg/mL in Lidocaine 1 % injection 500 mg 2023-07 02:30: 00 06-03 03:27 :00 No 500mg 500 mg, Intramuscu lar, ONCE, 1 dose, On 06/02/24 at 2030, SHAMAR, Reason for Anti-Infec tive: Empiric Therapy for Suspected Infection, Empiric Therapy Site: Pelvic, Duration of therapy: Once (ED) [facility] azithromyci n (ZITHROMAX) tablet 1,000 mg 2023-07 01:45: 00 06-03 03:28 :00 No 1000mg 1,000 mg, Oral, ONCE, 1 dose, On 06/02/24 at 1945, SHAMAR, Reason for Anti-Infec tive: Empiric Therapy for Suspected Infection, Empiric Therapy Site: Pelvic, Duration of therapy: Once (ED) [facility] metroNIDAZO LE 500 mg tablet 2023-07 00:00: 00 Yes [id number] 500mg Take 1 tablet by mouth in the morning and 1 tablet in the evening. [facility] ARIPiprazol e (ABILIFY) 2 mg tablet 2023-07 00:00: 00 07-03 05:59 :00 Yes [id number] 2mg Take 1 tablet by mouth in the morning for 30 days. [facility] ketorolac (TORADOL) injection 30 mg 2022-07 05:45: 00 05-15 04:55 :00 No 30mg 30 mg, Slow IV Push, ONCE, 1 dose, On 05/15/23 at 0045, Routine [facility] FENTanyl PF (SUBLIMAZE (PF)) injection 50 mcg 2022-07 05:15: 00 05-15 04:27 :00 No 50ug 50 mcg, Slow IV Push, ONCE, 1 dose, On 05/15/23 at 0015, Routine [facility] ondansetron (ZOFRAN (PF)) injection 4 mg 2022-07 05:00: 00 05-15 04:59 :00 No 4mg 4 mg, Slow IV Push, ONCE, 1 dose, On 05/15/23 at 0000, SHAMAR [facility] iopamidol (ISOVUE 370-500 mL) injection 80 mL 2022-07 05:00: 00 05-15 05:00 :00 No [id number] 80mL 80 mL, Intravenou s, ONCE, 1 dose, On 05/15/23 at 0000, Routine [facility] morpHINE (4 mg/mL) injection 4 mg 2022-07 04:00: 00 05-15 03:56 :00 No 4mg 4 mg, Slow IV Push, ONCE, 1 dose, On 05/14/23 at 2300, STAT [facility] ondansetron (ZOFRAN (PF)) injection 4 mg 2022-07 04:00: 00 05-15 03:56 :00 No 4mg 4 mg, Slow IV Push, ONCE, 1 dose, On 05/14/23 at 2300, SHAMAR [facility] ketorolac 10 mg tablet 2022-07 00:00: 00 Yes [id number] 10mg Take 1 tablet by mouth every 6 (six) hours as needed for Pain (scale 1-3). [facility] docusate (COLACE) capsule 100 mg 2022-07 13:00: 00 05-15 02:05 :19 No 100mg 100 mg, Oral, Q12H, First dose on 05/14/23 at 0800, Until Discontinu ed, Routine [facility] simethicone (GAS RELIEF (SIMETHICON E)) chewable tablet 160 mg 2022-07 02:00: 00 05-15 02:05 :19 No 160mg 160 mg, Oral, PC+HS, First dose on Tue05/13/23 at 2100, Until Discontinu ed, Routine [facility] ondansetron (ZOFRAN (PF)) injection 4 mg 2022-07 01:37: 02 05-14 01:38 :00 No 4mg 4 mg, Slow IV Push, PRN, 1 dose, Starting on Tue05/13/23 at 2036, Until Tue05/13/23 at 2037, Routine, Nausea and Vomiting (N/V), PACU [facility] FENTanyl PF (SUBLIMAZE (PF)) injection 25 mcg 2022-07 01:37: 02 05-14 02:43 :04 No 25ug 25 mcg, Slow IV Push, Q5MIN PRN, 4 doses, Starting on Tue05/13/23 at 2036, Until Tue05/13/23 at 2142, Routine, Pain (scale 4-6), PACU [facility] diphenhydrA MINE (BENADRYL) injection 25 mg 2022-07 01:13: 28 05-15 02:05 :19 No 25mg 25 mg, Slow IV Push, Q6HPRN, Starting on Tue05/13/23 at 2012, Until 05/14/23 at 2104, Routine, Itching [facility] ondansetron (ZOFRAN (PF)) injection 4 mg 2022-07 01:13: 26 05-15 02:05 :19 No 4mg 4 mg, Slow IV Push, Q4HPRN, Starting on Tue05/13/23 at 2012, Until 05/14/23 at 2104, Routine, Nausea and Vomiting (N/V) [facility] HYDROcodone -acetaminop hen (NORCO 5) 5-325 mg tablet 1 tablet 2022-07 01:13: 22 05-15 02:05 :19 No 1{tbl} 1 tablet, Oral, Q6HPRN, Starting on Tue05/13/23 at 2012, Until 05/14/23 at 2104, Routine, Pain (scale 4-6) [facility] ibuprofen (IBU) tablet 600 mg 2022-07 01:13: 19 05-15 02:05 :19 No 600mg 600 mg, Oral, Q6HPRN, Starting on Tue05/13/23 at 2012, Until 05/14/23 at 2104, Routine, Pain (scale 1-3) [facility] bupivacaine (preserv free) 0.5% (SENSORCAIN E MPF) injection 2022-07 00:57: 00 05-15 02:05 :19 No PRN, Starting on Tue05/13/23 at 1957, Until 05/14/23 at 2104, Routine, Intra-op [facility] sodium chloride 0.9 % irrigation solution 2022-07 00:30: 00 05-14 02:41 :13 No PRN, Starting on Tue05/13/23 at 1930, Until Tue05/13/23 at 2141, Intra-op [facility] HYDROcodone -acetaminop hen 5-325 mg tablet 2022-07 00:00: 00 05-22 04:59 :00 No [id number] 1{tbl} Take 1 tablet by mouth every 6 (six) hours as needed for Pain (scale 4-6) or Pain (scale 7-10) for up to 7 days. Indication s: acute pain [facility] morpHINE (2 mg/mL) injection 2 mg 2022-07 22:45: 00 05-13 22:48 :00 No 2mg 2 mg, Slow IV Push, ONCE, 1 dose, On Tue05/13/23 at 1745, STAT [facility] ondansetron (ZOFRAN (PF)) injection 4 mg 2022-07 21:00: 00 05-13 21:04 :00 No 4mg 4 mg, Slow IV Push, ONCE, 1 dose, On Tue05/13/23 at 1600, SHAMAR [facility] morpHINE (4 mg/mL) injection 4 mg 2022-07 21:00: 00 05-13 21:03 :00 No 4mg 4 mg, Slow IV Push, ONCE, 1 dose, On Tue05/13/23 at 1600, STAT [facility] fluconazole (DIFLUCAN) 150 mg tablet 03-04 00:00: 00 03-05 04:59 :00 No [id number] 150mg Take 1 tablet by mouth once now for 1 dose. [facility] morpHINE (2 mg/mL) injection 2 mg 03-01 15:39: 37 Yes 2mg 2 mg, Slow IV Push, Q5MIN PRN, 5 doses, Starting on Tue03/01/23 at 1039, Until Discontinu ed, Routine, Pain (scale 4-6), PACU [facility] ondansetron (ZOFRAN (PF)) injection 4 mg 03-01 15:39: 37 Yes 4mg 4 mg, Slow IV Push, PRN, 1 dose, Starting on Tue03/01/23 at 1039, Until Discontinu ed, Routine, Nausea and Vomiting (N/V), PACU [facility] sodium chloride 0.9 % irrigation solution 03-01 14:30: 00 03-01 16:08 :26 No PRN, Starting on Tue03/01/23 at 0930, Until Tue03/01/23 at 1108, Intra-op [facility] iohexoL (OMNIPAQUE 300-50 mL)) injection 03-01 14:30: 00 03-01 16:08 :26 No PRN, Starting on Tue03/01/23 at 0930, Until Tue03/01/23 at 1108, Routine, Intra-op [facility] bupivacaine (preserv free) (SENSORCAIN E MPF) 0.25 % (2.5 mg/mL) 30 mL, lidocaine-e pinephrine (XYLOCAINE WITH EPINEPHRINE ) 1 %-1:100,000 30 mL 03-01 14:28: 00 03-01 16:08 :26 No PRN, Starting on Tue03/01/23 at 0928, Intra-op [facility] lactated ringers IV infusion 1,000 mL 03-01 13:30: 00 03-01 13:37 :00 No 1000mL at 42 mL/hr, 1,000 mL, IV Infusion, ONCE, 1 dose, On Tue03/01/23 at 0830, Routine, DSU Pre-op [facility] ibuprofen 800 mg tablet 03-01 00:00: 00 05-10 00:00 :00 No [id number] 800mg Take 1 tablet by mouth every 6 (six) hours as needed for Pain (scale 4-6). [facility] HYDROcodone -acetaminop hen (NORCO) 5-325 mg tablet 03-01 00:00: 00 03-09 04:59 :00 No [id number] 1{tbl} Take 1 tablet by mouth every 6 (six) hours as needed for Pain (scale 7-10) for up to 7 days. Indication s: acute pain [facility] fluconazole (DIFLUCAN) 150 mg tablet 15 00:00: 00 12-31 04:59 :00 No [id number] 150mg Take 1 tablet by mouth once now for 1 dose. [facility] omeprazole 20 mg capsule 11-12 00:00: 00 11-27 04:59 :00 No [id number] 20mg Take 1 capsule by mouth in the morning for 14 days. [facility] triamcinolo ne acetonide 0.1 % cream 09-17 00:00: 00 03-01 00:00 :00 No [id number] Apply to area(s) 2 (two) times daily. [facility] metroNIDAZO LE 500 mg tablet 09-17 00:00: 00 09-25 05:59 :00 No [id number] 500mg Take 1 tablet by mouth every 12 (twelve) hours for 7 days. [facility] levonorgest reL (KYLEENA) IUD 1 Device 2021-07 17:15: 00 06-09 16:22 :00 No [id number] 1{devic e} [facility] miSOPROStoL 200 mcg tablet 2021-07 00:00: 00 06-09 00:00 :00 No [id number] 200ug Take 1 tablet by mouth SEE-INSTRU CTIONS. Take one tab the night before and one tab the morning of procedure [facility] fluoxetine HCl (PROZAC ORAL) 2021-07 0 08:16: 25 04-21 00:00 :00 No Take by mouth. [facility] famotidine (PEPCID (PF)) injection 20 mg 2021-07 0-05 01:00: 00 04-20 22:33 :17 No 20mg 20 mg, Slow IV Push, Q12H, 4 doses, First dose on Tue04/20/22 at 2000, Last dose on Tue04/22/22 at 0800, Routine [facility] vitamin w/FA tablet 2021-07 0 00:00: 00 Yes [id number] 1{tbl} Take 1 tablet by mouth in the morning. [facility] docusate 100 mg capsule 2021-07 00:00: 00 Yes [id number] 200mg Take 2 capsules by mouth once daily as needed for Constipati on. [facility] ibuprofen 600 mg tablet 2021-07 00:00: 00 Yes [id number] 600mg Take 1 tablet by mouth every 6 (six) hours as needed (Pain). Take with food or milk. [facility] ferrous sulfate 325 mg (65 mg iron) tablet 2021-07 00:00: 00 03-01 00:00 :00 No [id number] 325mg Take 1 tablet by mouth in the morning and 1 tablet in the evening. [facility] rho(D) immune globulin (RHOGAM) syringe 300 mcg 2021-07 22:33: 32 Yes 300ug 300 mcg, Intramuscu lar, ONCE, For 1 dose, Conditiona l, Routine [facility] HYDROcodone -acetaminop hen (NORCO 5) 5-325 mg tablet 1 tablet 2021-07 22:33: 28 Yes 1{tbl} 1 tablet, Oral, Q6HPRN, Starting on Tue04/20/22 at 1733, Until Discontinu ed, Routine, Pain (scale 7-10) [facility] ibuprofen (IBU) tablet 600 mg 2021-07 0 22:33: 28 Yes 600mg 600 mg, Oral, Q6HPRN, Starting on Tue04/20/22 at 1733, Until Discontinu ed, Routine, Pain (scale 4-6) [facility] acetaminoph en (TYLENOL) tablet 650 mg 2021-07 0 22:33: 28 Yes 650mg 650 mg, Oral, Q6HPRN, Starting on Tue04/20/22 at 1733, Until Discontinu ed, Routine, Pain (scale 1-3) [facility] diphenhydrA MINE (BENADRYL) tablet 25 mg 2021-07 0-04 22:33: 28 Yes 25mg 25 mg, Oral, Q6HPRN, Starting on Tue04/20/22 at 1733, Until Discontinu ed, Routine, Sleep, Itching [facility] ondansetron (ZOFRAN (PF)) injection 4 mg 2021-07 004 22:33: 28 Yes 4mg 4 mg, Slow IV Push, Q8HPRN, Starting on Tue04/20/22 at 1733, Until Discontinu ed, Routine, Nausea and Vomiting (N/V) [facility] simethicone (GAS RELIEF (SIMETHICON E)) chewable tablet 160 mg 2021-07 004 22:33: 28 Yes 160mg 160 mg, Oral, PC+HSPRN, Starting on Tue04/20/22 at 1733, Until Discontinu ed, Routine, Gas [facility] docusate (COLACE) capsule 200 mg 2021-07 004 22:33: 28 Yes 200mg 200 mg, Oral, QDAILYPRN, Starting on Tue04/20/22 at 1733, Until Discontinu ed, Routine, Constipati on [facility] magnesium hydroxide (MILK OF MAGNESIA) 400 mg/5 mL suspension 30 mL 2021-07 004 22:33: 28 Yes 30mL 30 mL, Oral, QDAILYPRN, Starting on Tue04/20/22 at 1733, Until Discontinu ed, Routine, Constipati on [facility] benzocaine- menthol (DERMOPLAST ) 20-0.5 % topical spray 2021-07 004 22:33: 28 Yes Topical, PRN, Starting on Tue04/20/22 at 1733, Until Discontinu ed, Routine, Perineum discomfort [facility] witch Renuka (TUCKS) 50 % topical pad 2021-07 004 22:33: 17 Yes Topical, Q4HPRN, Starting on Tue04/20/22 at 1733, Until Discontinu ed, Routine, rectal/hem orrhoidal pain [facility] fluoxetine HCl (PROZAC ORAL) 2021-07 004 17:24: 43 Yes Take by mouth. [facility] PIB fentaNYL-ro pivacaine 2 mcg/mL-0.1 % (PF) in NS 200 mL epidural infusion RTU 2021-07 0-04 14:11: 00 04-20 23:30 :10 No Epidural, ONCE INTRA PROCEDURE, Starting on Tue04/20/22 at 0911, Until Tue04/20/22 at 1830, Routine, Intra-op [facility] lidocaine-e pinephrine (XYLOCAINE W/EPINEPHRI NE) 1.5 %-1:200,000 injection 2021-07 0 14:10: 00 04-20 23:30 :10 No Epidural, ONCE INTRA PROCEDURE, Starting on Tue04/20/22 at 0910, Until Tue04/20/22 at 1830, Routine, Intra-op [facility] lidocaine 1% (XYLOCAINE) 100 mg/10 mL (1 %) injection 2021-07 004 14:10: 00 04-20 23:30 :10 No Infiltrati on, ONCE INTRA PROCEDURE, Starting on Tue04/20/22 at 0910, Until Tue04/20/22 at 1830, Routine, Intra-op [facility] lactated ringers IV infusion 500 mL 2021-07 0-04 08:45: 00 04-20 10:42 :00 No 500mL at 999 mL/hr, 500 mL, IV Infusion, ONCE, 1 dose, On Tue04/20/22 at 0345, Routine [facility] lactated ringers IV infusion 500 mL 2021-07 0-04 08:43: 17 04-20 22:33 :21 No 500mL at 999 mL/hr, 500 mL, IV Infusion, PRN - SEE INSTRUCTIO NS, Starting on Tue04/20/22 at 0343, Until Tue04/20/22 at 1733, Routine [facility] FENTanyl PF (SUBLIMAZE (PF)) injection 100 mcg 2021-07 0-04 08:43: 17 04-20 22:33 :17 No 100ug 100 mcg, Slow IV Push, Q1HPRN, Starting on Tue04/20/22 at 0343, Until Tue04/20/22 at 1733, Routine, contractio n pain without an epidural and SVE < 8 cm and Cat I strip [facility] oxytocin (PITOCIN) 30 units in NS 500 mL IV infusion 2021-07 0 08:43: 17 04-20 22:33 :21 No 2mU/min at 2-40 mL/hr, IV Infusion, TITRATE, Starting on Tue04/20/22 at 0343, Until Tue04/20/22 at 1733, SHAMAR [facility] sodium citrate-cit xi acid (BICITRA) 500-334 mg/5 mL solution 30 mL 2021-07 0-04 08:43: 17 04-20 12:59 :00 No 30mL 30 mL, Oral, PRE-PROCED URE ONCE, 1 dose, Starting on Tue04/20/22 at 0343, Until Discontinu ed, Routine, Surgery/Pr ocedure [facility] D5W-LR IV infusion 1,000 mL 2021-07 0 08:43: 17 04-20 22:33 :21 No 1000mL at 1-125 mL/hr, IV Infusion, TITRATE, Starting on Tue04/20/22 at 0343, Until Tue04/20/22 at 1733, Routine [facility] lactated ringers IV infusion 500 mL 2021-07 004 08:43: 16 04-20 14:46 :00 No 500mL at 999 mL/hr, 500 mL, IV Infusion, PRN - SEE INSTRUCTIO NS, 1 dose, Starting on Tue04/20/22 at 0343, Until Discontinu ed, Routine [facility] 25/iron fum/folic/d tolliver (-1 ORAL) -28 10:08: 05 Yes Take by mouth. [facility] 25/iron fum/folic/d tolliver (-1 ORAL) -15 11:23: 13 Yes Take by mouth. [facility] famotidine 40 mg tablet 9-15 00:00: 00 04-21 00:00 :00 No [id number] 40mg Take 1 tablet by mouth in the morning. [facility] clindamycin (CLEOCIN) 100 mg vaginal suppository 8-11 00:00: 00 04-01 00:00 :00 No [id number] 100mg Insert 1 Suppositor y into vagina at bedtime. [place] [facility] famotidine 40 mg tablet 8-09 00:00: 00 04-01 00:00 :00 No [id number] 40mg Take 1 tablet by mouth in the morning. [facility] fluoxetine HCl (PROZAC ORAL) 7-15 21:39: 50 Yes Take by mouth. [facility] metroNIDAZO LE 500 mg tablet 6-23 00:00: 00 04-01 00:00 :00 No [id number] 500mg Take 1 tablet by mouth every 12 (twelve) hours. [facility] azithromyci n 500 mg tablet 4-01 00:00: 00 04-01 00:00 :00 No [id number] 500mg Take 1 tablet by mouth daily. [facility] metoclopram yamini HCl 10 mg tablet 3-30 00:00: 00 04-21 00:00 :00 No [id number] 10mg Take 1 tablet by mouth every 6 (six) hours as needed for Nausea and Vomiting (N/V). [facility] fluticasone propionate 50 mcg/actuati on nasal spray 2018-07 00:00: 00 04-21 00:00 :00 No [id number] 2{spray } Use 2 Sprays in each nostril daily. [facility] ARIPiprazol e 10 mg tablet 2018-07 00:00: 00 04-21 00:00 :00 No 10mg Take 10 mg by mouth daily. [facility] SERTraline (ZOLOFT) 50 mg tablet 9-25 00:00: 00 2021- 10- 00:00 :00 No [id number] Take 1 tab po daily [facility] Immunizations Ordered Immunization Name Filled Immunization Name Date Status Comments Source TDAP 2022-02-02 00:00:00 Completed [facility] TDAP 2022-02-02 00:00:00 Completed [facility] TDAP 2022-02-02 00:00:00 Completed [facility] TDAP 2022-02-02 00:00:00 Completed [facility] TDAP 2022-02-02 00:00:00 Completed [facility] TDAP 2022-02-02 00:00:00 Completed [facility] TDAP 2022-02-02 00:00:00 Completed [facility] TDAP 2022-02-02 00:00:00 Completed [facility] TDAP 2022-02-02 00:00:00 Completed [facility] TDAP 2022-02-02 00:00:00 Completed [facility] TDAP 2022-02-02 00:00:00 Completed [facility] TDAP 2022-02-02 00:00:00 Completed [facility] TDAP 2022-02-02 00:00:00 Completed [facility] TDAP 2022-02-02 00:00:00 Completed [facility] TDAP 2022-02-02 00:00:00 Completed [facility] TDAP 2022-02-02 00:00:00 Completed [facility] TDAP 2022-02-02 00:00:00 Completed [facility] TDAP 2022-02-02 00:00:00 Completed [facility] TDAP 2022-02-02 00:00:00 Completed [facility] TDAP 2022-02-02 00:00:00 Completed [facility] TDAP 2022-02-02 00:00:00 Completed [facility] TDAP 2022-02-02 00:00:00 Completed [facility] TDAP 2022-02-02 00:00:00 Completed [facility] TDAP 2022-02-02 00:00:00 Completed [facility] TDAP 2022-02-02 00:00:00 Completed [facility] TDAP 2022-02-02 00:00:00 Completed [facility] TDAP 2022-02-02 00:00:00 Completed [facility] TDAP 2022-02-02 00:00:00 Completed [facility] TDAP 2022-02-02 00:00:00 Completed [facility] TDAP 2022-02-02 00:00:00 Completed [facility] TDAP 2022-02-02 00:00:00 Completed [facility] TDAP 2022-02-02 00:00:00 Completed [facility] TDAP 2022-02-02 00:00:00 Completed [facility] TDAP 2022-02-02 00:00:00 Completed [facility] TDAP 2022-02-02 00:00:00 Completed [facility] TDAP 2022-02-02 00:00:00 Completed [facility] TDAP 2022-02-02 00:00:00 Completed [facility] TDAP 2022-02-02 00:00:00 Completed [facility] TDAP 2022-02-02 00:00:00 Completed [facility] Influenza Virus Vaccine Quad IM, Preserv and ABX Free 6 MO-64 YRS 2021-10-14 00:00:00 Completed [facility] Influenza Virus Vaccine Quad IM, Preserv and ABX Free 6 MO-64 YRS 2021-10-14 00:00:00 Completed [facility] Influenza Virus Vaccine Quad IM, Preserv and ABX Free 6 MO-64 YRS 2021-10-14 00:00:00 Completed [facility] Influenza Virus Vaccine Quad IM, Preserv and ABX Free 6 MO-64 YRS 2021-10-14 00:00:00 Completed [facility] Influenza Virus Vaccine Quad IM, Preserv and ABX Free 6 MO-64 YRS 2021-10-14 00:00:00 Completed [facility] Influenza Virus Vaccine Quad IM, Preserv and ABX Free 6 MO-64 YRS 2021-10-14 00:00:00 Completed [facility] Influenza Virus Vaccine Quad IM, Preserv and ABX Free 6 MO-64 YRS 2021-10-14 00:00:00 Completed [facility] Influenza Virus Vaccine Quad IM, Preserv and ABX Free 6 MO-64 YRS 2021-10-14 00:00:00 Completed [facility] Influenza Virus Vaccine Quad IM, Preserv and ABX Free 6 MO-64 YRS 2021-10-14 00:00:00 Completed [facility] Influenza Virus Vaccine Quad IM, Preserv and ABX Free 6 MO-64 YRS 2021-10-14 00:00:00 Completed [facility] Influenza Virus Vaccine Quad IM, Preserv and ABX Free 6 MO-64 YRS 2021-10-14 00:00:00 Completed [facility] Influenza Virus Vaccine Quad IM, Preserv and ABX Free 6 MO-64 YRS 2021-10-14 00:00:00 Completed [facility] Influenza Virus Vaccine Quad IM, Preserv and ABX Free 6 MO-64 YRS 2021-10-14 00:00:00 Completed [facility] Influenza Virus Vaccine Quad IM, Preserv and ABX Free 6 MO-64 YRS 2021-10-14 00:00:00 Completed [facility] Influenza Virus Vaccine Quad IM, Preserv and ABX Free 6 MO-64 YRS 2021-10-14 00:00:00 Completed [facility] Influenza Virus Vaccine Quad IM, Preserv and ABX Free 6 MO-64 YRS 2021-10-14 00:00:00 Completed [facility] Influenza Virus Vaccine Quad IM, Preserv and ABX Free 6 MO-64 YRS 2021-10-14 00:00:00 Completed [facility] Influenza Virus Vaccine Quad IM, Preserv and ABX Free 6 MO-64 YRS 2021-10-14 00:00:00 Completed [facility] Influenza Virus Vaccine Quad IM, Preserv and ABX Free 6 MO-64 YRS 2021-10-14 00:00:00 Completed [facility] Influenza Virus Vaccine Quad IM, Preserv and ABX Free 6 MO-64 YRS 2021-10-14 00:00:00 Completed [facility] Influenza Virus Vaccine Quad IM, Preserv and ABX Free 6 MO-64 YRS 2021-10-14 00:00:00 Completed [facility] Influenza Virus Vaccine Quad IM, Preserv and ABX Free 6 MO-64 YRS 2021-10-14 00:00:00 Completed [facility] Influenza Virus Vaccine Quad IM, Preserv and ABX Free 6 MO-64 YRS 2021-10-14 00:00:00 Completed [facility] Influenza Virus Vaccine Quad IM, Preserv and ABX Free 6 MO-64 YRS 2021-10-14 00:00:00 Completed [facility] Influenza Virus Vaccine Quad IM, Preserv and ABX Free 6 MO-64 YRS 2021-10-14 00:00:00 Completed [facility] Influenza Virus Vaccine Quad IM, Preserv and ABX Free 6 MO-64 YRS 2021-10-14 00:00:00 Completed [facility] Influenza Virus Vaccine Quad IM, Preserv and ABX Free 6 MO-64 YRS 2021-10-14 00:00:00 Completed [facility] Influenza Virus Vaccine Quad IM, Preserv and ABX Free 6 MO-64 YRS 2021-10-14 00:00:00 Completed [facility] Influenza Virus Vaccine Quad IM, Preserv and ABX Free 6 MO-64 YRS 2021-10-14 00:00:00 Completed [facility] Influenza Virus Vaccine Quad IM, Preserv and ABX Free 6 MO-64 2021-10-14 00:00:00 Completed [facility] Influenza Virus Vaccine Quad IM, Preserv and ABX Free 6 MO-64 2021-10-14 00:00:00 Completed [facility] Influenza Virus Vaccine Quad IM, Preserv and ABX Free 6 MO-64 2021-10-14 00:00:00 Completed [facility] Influenza Virus Vaccine Quad IM, Preserv and ABX Free 6 MO-64 YRS 2021-10-14 00:00:00 Completed [facility] Influenza Virus Vaccine Quad IM, Preserv and ABX Free 6 MO-64 2021-10-14 00:00:00 Completed [facility] Influenza Virus Vaccine Quad IM, Preserv and ABX Free 6 MO-64 YRS 2021-10-14 00:00:00 Completed [facility] Influenza Virus Vaccine Quad IM, Preserv and ABX Free 6 MO-64 2021-09-30 00:00:00 Completed [facility] Influenza Virus Vaccine Quad IM, Preserv and ABX Free 6 MO-64 YRS 2021-10-14 00:00:00 Completed [facility] Influenza Virus Vaccine Quad IM, Preserv and ABX Free 6 MO-64 YRS (FLUCELVAX) 2021-10-14 00:00:00 Completed [facility] Influenza Virus Vaccine Quad IM, Preserv and ABX Free 6 MO-64 YRS (FLUCELVAX) 2021-10-14 00:00:00 Completed [facility] Influenza Virus Vaccine Quad .5 mL IM 6+ MO 2019-04-25 00:00:00 Completed [facility] Influenza Virus Vaccine Quad .5 mL IM 6+ MO 2019-04-25 00:00:00 Completed [facility] Influenza Virus Vaccine Quad .5 mL IM 6+ MO 2019-04-25 00:00:00 Completed [facility] Influenza Virus Vaccine Quad .5 mL IM 6+ MO 2019-04-25 00:00:00 Completed [facility] Influenza Virus Vaccine Quad .5 mL IM 6+ MO 2019-04-25 00:00:00 Completed [facility] Influenza Virus Vaccine Quad .5 mL IM 6+ MO 2019-04-25 00:00:00 Completed [facility] Influenza Virus Vaccine Quad .5 mL IM 6+ MO 2019-04-25 00:00:00 Completed [facility] Influenza Virus Vaccine Quad .5 mL IM 6+ MO 2019-04-25 00:00:00 Completed [facility] Influenza Virus Vaccine Quad .5 mL IM 6+ MO 2019-04-25 00:00:00 Completed [facility] Influenza Virus Vaccine Quad .5 mL IM 6+ MO 2019-04-25 00:00:00 Completed [facility] Influenza Virus Vaccine Quad .5 mL IM 6+ MO 2019-04-25 00:00:00 Completed [facility] Influenza Virus Vaccine Quad .5 mL IM 6+ MO 2019-04-25 00:00:00 Completed [facility] Influenza Virus Vaccine Quad .5 mL IM 6+ MO 2019-04-25 00:00:00 Completed [facility] Influenza Virus Vaccine Quad .5 mL IM 6+ MO 2019-04-25 00:00:00 Completed [facility] Influenza Virus Vaccine Quad .5 mL IM 6+ MO 2019-04-25 00:00:00 Completed [facility] Influenza Virus Vaccine Quad .5 mL IM 6+ MO 2019-04-25 00:00:00 Completed [facility] Influenza Virus Vaccine Quad .5 mL IM 6+ MO 2019-04-25 00:00:00 Completed [facility] Influenza Virus Vaccine Quad .5 mL IM 6+ MO 2019-04-25 00:00:00 Completed [facility] Influenza Virus Vaccine Quad .5 mL IM 6+ MO 2019-04-25 00:00:00 Completed [facility] Influenza Virus Vaccine Quad .5 mL IM 6+ MO 2019-04-25 00:00:00 Completed [facility] Influenza Virus Vaccine Quad .5 mL IM 6+ MO 2019-04-25 00:00:00 Completed [facility] Influenza Virus Vaccine Quad .5 mL IM 6+ MO 2019-04-25 00:00:00 Completed [facility] Influenza Virus Vaccine Quad .5 mL IM 6+ MO 2019-04-25 00:00:00 Completed [facility] Influenza Virus Vaccine Quad .5 mL IM 6+ MO 2019-04-25 00:00:00 Completed [facility] Influenza Virus Vaccine Quad .5 mL IM 6+ MO 2019-04-25 00:00:00 Completed [facility] Influenza Virus Vaccine Quad .5 mL IM 6+ MO 2019-04-25 00:00:00 Completed [facility] Influenza Virus Vaccine Quad .5 mL IM 6+ MO 2019-04-25 00:00:00 Completed [facility] Influenza Virus Vaccine Quad .5 mL IM 6+ MO 2019-04-25 00:00:00 Completed [facility] Influenza Virus Vaccine Quad .5 mL IM 6+ MO 2019-04-25 00:00:00 Completed [facility] Influenza Virus Vaccine Quad .5 mL IM 6+ MO 2019-04-25 00:00:00 Completed [facility] Influenza Virus Vaccine Quad .5 mL IM 6+ MO 2019-04-25 00:00:00 Completed [facility] Influenza Virus Vaccine Quad .5 mL IM 6+ MO 2019-04-25 00:00:00 Completed [facility] Influenza Virus Vaccine Quad .5 mL IM 6+ MO 2019-04-25 00:00:00 Completed [facility] Influenza Virus Vaccine Quad .5 mL IM 6+ MO 2019-04-25 00:00:00 Completed [facility] Influenza Virus Vaccine Quad .5 mL IM 6+ MO 2019-04-25 00:00:00 Completed [facility] Influenza Virus Vaccine Quad .5 mL IM 6+ MO 2019-04-25 00:00:00 Completed [facility] Influenza Virus Vaccine Quad .5 mL IM 6+ MO 2019-04-25 00:00:00 Completed [facility] Influenza Virus Vaccine Quad .5 mL IM 6+ MO (FLUZONE/FLULAVAL/F LUARIX) 2019-04-25 00:00:00 Completed [facility] Influenza Virus Vaccine Quad .5 mL IM 6+ MO (FLUZONE/FLULAVAL/F LUARIX) 2019-04-25 00:00:00 Completed [facility] Influenza Virus Vaccine Quad .5 mL IM 6+ MO 2018-11-07 00:00:00 Completed [facility] Influenza Virus Vaccine Quad .5 mL IM 6+ MO 2018-11-07 00:00:00 Completed [facility] Influenza Virus Vaccine Quad .5 mL IM 6+ MO 2018-11-07 00:00:00 Completed [facility] Influenza Virus Vaccine Quad .5 mL IM 6+ MO 2018-11-07 00:00:00 Completed [facility] Influenza Virus Vaccine Quad .5 mL IM 6+ MO 2018-11-07 00:00:00 Completed [facility] Influenza Virus Vaccine Quad .5 mL IM 6+ MO 2018-11-07 00:00:00 Completed [facility] Influenza Virus Vaccine Quad .5 mL IM 6+ MO 2018-11-07 00:00:00 Completed [facility] Influenza Virus Vaccine Quad .5 mL IM 6+ MO 2018-11-07 00:00:00 Completed [facility] Influenza Virus Vaccine Quad .5 mL IM 6+ MO 2018-11-07 00:00:00 Completed [facility] Influenza Virus Vaccine Quad .5 mL IM 6+ MO 2018-11-07 00:00:00 Completed [facility] Influenza Virus Vaccine Quad .5 mL IM 6+ MO 2018-11-07 00:00:00 Completed [facility] Influenza Virus Vaccine Quad .5 mL IM 6+ MO 2018-11-07 00:00:00 Completed [facility] Influenza Virus Vaccine Quad .5 mL IM 6+ MO 2018-11-07 00:00:00 Completed [facility] Influenza Virus Vaccine Quad .5 mL IM 6+ MO 2018-11-07 00:00:00 Completed [facility] Influenza Virus Vaccine Quad .5 mL IM 6+ MO 2018-11-07 00:00:00 Completed [facility] Influenza Virus Vaccine Quad .5 mL IM 6+ MO 2018-11-07 00:00:00 Completed [facility] Influenza Virus Vaccine Quad .5 mL IM 6+ MO 2018-11-07 00:00:00 Completed [facility] Influenza Virus Vaccine Quad .5 mL IM 6+ MO 2018-11-07 00:00:00 Completed [facility] Influenza Virus Vaccine Quad .5 mL IM 6+ MO 2018-11-07 00:00:00 Completed [facility] Influenza Virus Vaccine Quad .5 mL IM 6+ MO 2018-11-07 00:00:00 Completed [facility] Influenza Virus Vaccine Quad .5 mL IM 6+ MO 2018-11-07 00:00:00 Completed [facility] Influenza Virus Vaccine Quad .5 mL IM 6+ MO 2018-11-07 00:00:00 Completed [facility] Influenza Virus Vaccine Quad .5 mL IM 6+ MO 2018-11-07 00:00:00 Completed [facility] Influenza Virus Vaccine Quad .5 mL IM 6+ MO 2018-11-07 00:00:00 Completed [facility] Influenza Virus Vaccine Quad .5 mL IM 6+ MO 2018-11-07 00:00:00 Completed [facility] Influenza Virus Vaccine Quad .5 mL IM 6+ MO 2018-11-07 00:00:00 Completed [facility] Influenza Virus Vaccine Quad .5 mL IM 6+ MO 2018-11-07 00:00:00 Completed [facility] Influenza Virus Vaccine Quad .5 mL IM 6+ MO 2018-11-07 00:00:00 Completed [facility] Influenza Virus Vaccine Quad .5 mL IM 6+ MO 2018-11-07 00:00:00 Completed [facility] Influenza Virus Vaccine Quad .5 mL IM 6+ MO 2018-11-07 00:00:00 Completed [facility] Influenza Virus Vaccine Quad .5 mL IM 6+ MO 2018-11-07 00:00:00 Completed [facility] Influenza Virus Vaccine Quad .5 mL IM 6+ MO 2018-11-07 00:00:00 Completed [facility] Influenza Virus Vaccine Quad .5 mL IM 6+ MO 2018-11-07 00:00:00 Completed [facility] Influenza Virus Vaccine Quad .5 mL IM 6+ MO 2018-11-07 00:00:00 Completed [facility] Influenza Virus Vaccine Quad .5 mL IM 6+ MO 2018-11-07 00:00:00 Completed [facility] Influenza Virus Vaccine Quad .5 mL IM 6+ MO 2018-11-07 00:00:00 Completed [facility] Influenza Virus Vaccine Quad .5 mL IM 6+ MO 2018-11-07 00:00:00 Completed [facility] Influenza Virus Vaccine Quad .5 mL IM 6+ MO (FLUZONE/FLULAVAL/F LUARIX) 2018-11-07 00:00:00 Completed [facility] Influenza Virus Vaccine Quad .5 mL IM 6+ MO (FLUZONE/FLULAVAL/F LUARIX) 2018-11-07 00:00:00 Completed TDAP 2017-06-13 00:00:00 Completed [facility] TDAP 2017-06-13 00:00:00 Completed [facility] TDAP 2017-06-13 00:00:00 Completed [facility] TDAP 2017-06-13 00:00:00 Completed [facility] TDAP 2017-06-13 00:00:00 Completed [facility] TDAP 2017-06-13 00:00:00 Completed [facility] TDAP 2017-06-13 00:00:00 Completed [facility] TDAP 2017-06-13 00:00:00 Completed [facility] TDAP 2017-06-13 00:00:00 Completed [facility] TDAP 2017-06-13 00:00:00 Completed [facility] TDAP 2017-06-13 00:00:00 Completed [facility] TDAP 2017-06-13 00:00:00 Completed [facility] TDAP 2017-06-13 00:00:00 Completed [facility] TDAP 2017-06-13 00:00:00 Completed [facility] TDAP 2017-06-13 00:00:00 Completed [facility] TDAP 2017-06-13 00:00:00 Completed [facility] TDAP 2017-06-13 00:00:00 Completed [facility] TDAP 2017-06-13 00:00:00 Completed [facility] TDAP 2017-06-13 00:00:00 Completed [facility] TDAP 2017-06-13 00:00:00 Completed [facility] TDAP 2017-06-13 00:00:00 Completed [facility] TDAP 2017-06-13 00:00:00 Completed [facility] TDAP 2017-06-13 00:00:00 Completed [facility] TDAP 2017-06-13 00:00:00 Completed [facility] TDAP 2017-06-13 00:00:00 Completed [facility] TDAP 2017-06-13 00:00:00 Completed [facility] TDAP 2017-06-13 00:00:00 Completed [facility] TDAP 2017-06-13 00:00:00 Completed [facility] TDAP 2017-06-13 00:00:00 Completed [facility] TDAP 2017-06-13 00:00:00 Completed [facility] TDAP 2017-06-13 00:00:00 Completed [facility] TDAP 2017-06-13 00:00:00 Completed [facility] TDAP 2017-06-13 00:00:00 Completed [facility] TDAP 2017-06-13 00:00:00 Completed [facility] TDAP 2017-06-13 00:00:00 Completed [facility] TDAP 2017-06-13 00:00:00 Completed [facility] TDAP 2017-06-13 00:00:00 Completed [facility] TDAP 2017-06-13 00:00:00 Completed [facility] TDAP 2017-06-13 00:00:00 Completed Influenza Virus Vaccine Quad IM 3+ YRS 2017-05-23 00:00:00 Completed [facility] Influenza Virus Vaccine Quad IM 3+ YRS 2017-05-23 00:00:00 Completed [facility] Influenza Virus Vaccine Quad IM 3+ YRS 2017-05-23 00:00:00 Completed [facility] Influenza Virus Vaccine Quad IM 3+ YRS 2017-05-23 00:00:00 Completed [facility] Influenza Virus Vaccine Quad IM 3+ YRS 2017-05-23 00:00:00 Completed [facility] Influenza Virus Vaccine Quad IM 3+ YRS 2017-05-23 00:00:00 Completed [facility] Influenza Virus Vaccine Quad IM 3+ YRS 2017-05-23 00:00:00 Completed [facility] Influenza Virus Vaccine Quad IM 3+ YRS 2017-05-23 00:00:00 Completed [facility] Influenza Virus Vaccine Quad IM 3+ YRS 2017-05-23 00:00:00 Completed [facility] Influenza Virus Vaccine Quad IM 3+ YRS 2017-05-23 00:00:00 Completed [facility] Influenza Virus Vaccine Quad IM 3+ YRS 2017-05-23 00:00:00 Completed [facility] Influenza Virus Vaccine Quad IM 3+ YRS 2017-05-23 00:00:00 Completed [facility] Influenza Virus Vaccine Quad IM 3+ YRS 2017-05-23 00:00:00 Completed [facility] Influenza Virus Vaccine Quad IM 3+ YRS 2017-05-23 00:00:00 Completed [facility] Influenza Virus Vaccine Quad IM 3+ YRS 2017-05-23 00:00:00 Completed [facility] Influenza Virus Vaccine Quad IM 3+ YRS 2017-05-23 00:00:00 Completed [facility] Influenza Virus Vaccine Quad IM 3+ YRS 2017-05-23 00:00:00 Completed [facility] Influenza Virus Vaccine Quad IM 3+ YRS 2017-05-23 00:00:00 Completed [facility] Influenza Virus Vaccine Quad IM 3+ YRS 2017-05-23 00:00:00 Completed [facility] Influenza Virus Vaccine Quad IM 3+ YRS 2017-05-23 00:00:00 Completed [facility] Influenza Virus Vaccine Quad IM 3+ YRS 2017-05-23 00:00:00 Completed [facility] Influenza Virus Vaccine Quad IM 3+ YRS 2017-05-23 00:00:00 Completed [facility] Influenza Virus Vaccine Quad IM 3+ YRS 2017-05-23 00:00:00 Completed [facility] Influenza Virus Vaccine Quad IM 3+ YRS 2017-05-23 00:00:00 Completed [facility] Influenza Virus Vaccine Quad IM 3+ YRS 2017-05-23 00:00:00 Completed [facility] Influenza Virus Vaccine Quad IM 3+ YRS 2017-05-23 00:00:00 Completed [facility] Influenza Virus Vaccine Quad IM 3+ YRS 2017-05-23 00:00:00 Completed [facility] Influenza Virus Vaccine Quad IM 3+ YRS 2017-05-23 00:00:00 Completed [facility] Influenza Virus Vaccine Quad IM 3+ YRS 2017-05-23 00:00:00 Completed [facility] Influenza Virus Vaccine Quad IM 3+ YRS 2017-05-23 00:00:00 Completed [facility] Influenza Virus Vaccine Quad IM 3+ YRS 2017-05-23 00:00:00 Completed [facility] Influenza Virus Vaccine Quad IM 3+ YRS 2017-05-23 00:00:00 Completed [facility] Influenza Virus Vaccine Quad IM 3+ YRS 2017-05-23 00:00:00 Completed [facility] Influenza Virus Vaccine Quad IM 3+ YRS 2017-05-23 00:00:00 Completed [facility] Influenza Virus Vaccine Quad IM 3+ YRS 2017-05-23 00:00:00 Completed [facility] Influenza Virus Vaccine Quad IM 3+ YRS 2017-05-23 00:00:00 Completed [facility] Influenza Virus Vaccine Quad IM 3+ YRS 2017-05-23 00:00:00 Completed [facility] Influenza Virus Vaccine Quad IM 3+ YRS 2017-05-23 00:00:00 Completed [facility] Influenza Virus Vaccine Quad IM 3+ YRS 2017-05-23 00:00:00 Completed [facility] Influenza Virus Vaccine Quad IM 3+ YRS Unknown Completed [facility] TDAP Unknown Completed [facility] Influenza Virus Vaccine Quad IM, Preserv and ABX Free 6 MO-64 YRS (FLUCELVAX) Unknown Completed [facility] Influenza Virus Vaccine Quad IM 3+ YRS Unknown Completed [facility] TDAP Unknown Completed [facility] Influenza Virus Vaccine Quad IM, Preserv and ABX Free 6 MO-64 YRS (FLUCELVAX) Unknown Completed [facility] Influenza Virus Vaccine Quad IM 3+ YRS Unknown Completed [facility] TDAP Unknown Completed [facility] Influenza Virus Vaccine Quad IM, Preserv and ABX Free 6 MO-64 YRS (FLUCELVAX) Unknown Completed [facility] Influenza Virus Vaccine Quad IM 3+ YRS Unknown Completed [facility] TDAP Unknown Completed [facility] Influenza Virus Vaccine Quad IM, Preserv and ABX Free 6 MO-64 YRS (FLUCELVAX) Unknown Completed [facility] Influenza Virus Vaccine Quad IM 3+ YRS Unknown Completed [facility] TDAP Unknown Completed [facility] Influenza Virus Vaccine Quad IM, Preserv and ABX Free 6 MO-64 YRS (FLUCELVAX) Unknown Completed [facility] Influenza Virus Vaccine Quad IM 3+ YRS Unknown Completed [facility] TDAP Unknown Completed [facility] Influenza Virus Vaccine Quad IM, Preserv and ABX Free 6 MO-64 YRS (FLUCELVAX) Unknown Completed [facility] Influenza Virus Vaccine Quad IM 3+ YRS Unknown Completed [facility] TDAP Unknown Completed [facility] Influenza Virus Vaccine Quad IM, Preserv and ABX Free 6 MO-64 YRS (FLUCELVAX) Unknown Completed [facility] Influenza Virus Vaccine Quad IM 3+ YRS Unknown Completed [facility] TDAP Unknown Completed [facility] Influenza Virus Vaccine Quad IM, Preserv and ABX Free 6 MO-64 YRS (FLUCELVAX) Unknown Completed [facility] Influenza Virus Vaccine Quad IM 3+ YRS Unknown Completed [facility] TDAP Unknown Completed [facility] Influenza Virus Vaccine Quad IM, Preserv and ABX Free 6 MO-64 YRS (FLUCELVAX) Unknown Completed [facility] Influenza Virus Vaccine Quad IM 3+ YRS Unknown Completed [facility] TDAP Unknown Completed [facility] Influenza Virus Vaccine Quad IM, Preserv and ABX Free 6 MO-64 YRS (FLUCELVAX) Unknown Completed [facility] Influenza Virus Vaccine Quad IM 3+ YRS Unknown Completed [facility] TDAP Unknown Completed [facility] Influenza Virus Vaccine Quad IM, Preserv and ABX Free 6 MO-64 YRS (FLUCELVAX) Unknown Completed [facility] Influenza Virus Vaccine Quad IM 3+ YRS Unknown Completed [facility] TDAP Unknown Completed [facility] Influenza Virus Vaccine Quad IM, Preserv and ABX Free 6 MO-64 YRS (FLUCELVAX) Unknown Completed [facility] Influenza Virus Vaccine Quad IM 3+ YRS Unknown Completed [facility] TDAP Unknown Completed [facility] Influenza Virus Vaccine Quad IM, Preserv and ABX Free 6 MO-64 YRS (FLUCELVAX) Unknown Completed [facility] Influenza Virus Vaccine Quad IM 3+ YRS Unknown Completed [facility] TDAP Unknown Completed [facility] Influenza Virus Vaccine Quad IM, Preserv and ABX Free 6 MO-64 YRS (FLUCELVAX) Unknown Completed [facility] Influenza Virus Vaccine Quad IM 3+ YRS Unknown Completed [facility] TDAP Unknown Completed [facility] Influenza Virus Vaccine Quad IM, Preserv and ABX Free 6 MO-64 YRS (FLUCELVAX) Unknown Completed [facility] Influenza Virus Vaccine Quad IM 3+ YRS Unknown Completed [facility] TDAP Unknown Completed [facility] Influenza Virus Vaccine Quad IM, Preserv and ABX Free 6 MO-64 YRS (FLUCELVAX) Unknown Completed [facility] Influenza Virus Vaccine Quad IM 3+ YRS Unknown Completed [facility] TDAP Unknown Completed [facility] Influenza Virus Vaccine Quad IM, Preserv and ABX Free 6 MO-64 YRS (FLUCELVAX) Unknown Completed [facility] Influenza Virus Vaccine Quad IM 3+ YRS Unknown Completed [facility] TDAP Unknown Completed [facility] Influenza Virus Vaccine Quad IM, Preserv and ABX Free 6 MO-64 YRS (FLUCELVAX) Unknown Completed [facility] Influenza Virus Vaccine Quad IM 3+ YRS Unknown Completed [facility] TDAP Unknown Completed [facility] Influenza Virus Vaccine Quad IM, Preserv and ABX Free 6 MO-64 YRS (FLUCELVAX) Unknown Completed [facility] Influenza Virus Vaccine Quad IM 3+ YRS Unknown Completed [facility] TDAP Unknown Completed [facility] Influenza Virus Vaccine Quad IM, Preserv and ABX Free 6 MO-64 YRS (FLUCELVAX) Unknown Completed [facility] Vital Signs Vital Name Observation Time Observation Value Comments S von Systolic blood pressure 2024-07-28 20:33:00 110 mm[Hg] [facility] Diastolic blood pressure 2024-07-28 20:33:00 62 mm[Hg] [facility] Heart rate 2024-07-28 20:33:00 80 /min [facility] Body temperature 2024-07-28 20:33:00 37.11 Coretta [facility] Respiratory rate 2024-07-28 20:33:00 18 /min [facility] Body height 2024-07-28 20:33:00 154.9 cm [facility] Body weight 2024-07-28 20:33:00 52.164 kg [facility] BMI 2024-07-28 20:33:00 21.73 kg/m2 [facility] Oxygen saturation in Arterial blood by Pulse oximetry 2024-07-28 20:33:00 100 /min [facility] Systolic blood pressure 2024-06-03 03:33:00 123 mm[Hg] [facility] Diastolic blood pressure 2024-06-03 03:33:00 88 mm[Hg] [facility] Heart rate 2024-06-03 03:33:00 86 /min [facility] Respiratory rate 2024-06-03 03:33:00 16 /min [facility] Oxygen saturation in Arterial blood by Pulse oximetry 2024-06-03 03:33:00 100 /min [facility] Body temperature 2024-06-03 01:13:00 36.89 Coretta [facility] Body height 2024-06-03 01:13:00 154.9 cm [facility] Body weight 2024-06-03 01:13:00 45.36 kg [facility] BMI 2024-06-03 01:13:00 18.89 kg/m2 [facility] Systolic blood pressure 2023-05-23 19:00:00 103 mm[Hg] [facility] Diastolic blood pressure 2023-05-23 19:00:00 69 mm[Hg] [facility] Heart rate 2023-05-23 19:00:00 59 /min [facility] Body temperature 2023-05-23 19:00:00 36.94 Coretta [facility] Respiratory rate 2023-05-23 19:00:00 18 /min [facility] Body weight 2023-05-23 19:00:00 63.413 kg [facility] BMI 2023-05-23 19:00:00 26.41 kg/m2 [facility] Systolic blood pressure 2023-05-15 05:00:00 113 mm[Hg] [facility] Diastolic blood pressure 2023-05-15 05:00:00 76 mm[Hg] [facility] Heart rate 2023-05-15 05:00:00 67 /min [facility] Respiratory rate 2023-05-15 05:00:00 13 /min [facility] Oxygen saturation in Arterial blood by Pulse oximetry 2023-05-15 05:00:00 99 /min [facility] Body temperature 2023-05-15 04:30:00 36.94 Coret[place] [facility] Body height 2023-05-15 03:41:00 154.9 cm [facility] Body weight 2023-05-15 03:41:00 63.504 kg [facility] BMI 2023-05-15 03:41:00 26.45 kg/m2 [facility] Systolic blood pressure 2023-05-14 12:30:00 116 mm[Hg] [facility] Diastolic blood pressure 2023-05-14 12:30:00 60 mm[Hg] [facility] Heart rate 2023-05-14 12:30:00 68 /[facility] Body temperature 2023-05-14 12:30:00 36.89 Coretta [facility] Respiratory rate 2023-05-14 12:30:00 18 /min [facility] Oxygen saturation in Arterial blood by Pulse oximetry 2023-05-14 09:21:00 99 /min [facility] Body height 2023-05-13 19:48:00 154.9 cm [facility] Body weight 2023-05-13 19:48:00 63.504 kg [facility] BMI 2023-05-13 19:48:00 26.45 kg/m2 [facility] Systolic blood pressure 2023-05-14 01:59:00 116 mm[Hg] [facility] Diastolic blood pressure 2023-05-14 01:59:00 66 mm[Hg] [facility] Heart rate 2023-05-14 01:59:00 65 /min [facility] Respiratory rate 2023-05-14 01:59:00 8 /min [facility] Oxygen saturation in Arterial blood by Pulse oximetry 2023-05-14 01:59:00 100 /min [facility] Systolic blood pressure 2023-05-14 01:59:00 116 mm[Hg] [facility] Diastolic blood pressure 2023-05-14 01:59:00 66 mm[Hg] [facility] Heart rate 2023-05-14 01:59:00 65 /min [facility] Respiratory rate 2023-05-14 01:59:00 8 /min [facility] Oxygen saturation in Arterial blood by Pulse oximetry 2023-05-14 01:59:00 100 /min [facility] Body temperature 2023-05-13 23:43:00 37 [place] [facility] Body temperature 2023-05-13 23:43:00 37 [facility] Body height 2023-05-13 19:48:00 154.9 cm [facility] Body weight 2023-05-13 19:48:00 63.504 kg [facility] BMI 2023-05-13 19:48:00 26.45 kg/m2 [facility] Body height 2023-05-13 19:48:00 154.9 cm [facility] Body weight 2023-05-13 19:48:00 63.504 kg [facility] BMI 2023-05-13 19:48:00 26.45 kg/m2 [facility] Systolic blood pressure 2023-05-11 00:10:00 110 mm[Hg] [facility] Diastolic blood pressure 2023-05-11 00:10:00 69 mm[Hg] [facility] Heart rate 2023-05-11 00:10:00 70 /min [facility] Body temperature 2023-05-11 00:10:00 37.17 Coret[place] [facility] Respiratory rate 2023-05-11 00:10:00 16 /min [facility] Oxygen saturation in Arterial blood by Pulse oximetry 2023-05-11 00:10:00 96 /min [facility] Body height 2023-05-10 21:04:00 154.9 cm [facility] Body weight 2023-05-10 21:04:00 63.504 kg [facility] BMI 2023-05-10 21:04:00 26.45 kg/m2 [facility] Systolic blood pressure 2023-05-10 20:31:00 107 mm[Hg] [facility] Diastolic blood pressure 2023-05-10 20:31:00 65 mm[Hg] [facility] Heart rate 2023-05-10 20:31:00 69 /min [facility] Body temperature 2023-05-10 20:31:00 36.78 Coret[place] [facility] Respiratory rate 2023-05-10 20:31:00 17 /min [facility] Body height 2023-05-10 20:31:00 154.9 cm [facility] Body weight 2023-05-10 20:31:00 63.594 kg [facility] BMI 2023-05-10 20:31:00 26.49 kg/m2 [facility] Systolic blood pressure 2023-03-15 17:53:00 104 mm[Hg] [facility] Diastolic blood pressure 2023-03-15 17:53:00 58 mm[Hg] [facility] Heart rate 2023-03-15 17:53:00 80 /min [facility] Body temperature 2023-03-15 17:53:00 36.72 Coret[place] [facility] Respiratory rate 2023-03-15 17:53:00 18 /min [facility] Body height 2023-03-15 17:53:00 154.9 cm [facility] Body weight 2023-03-15 17:53:00 59.421 kg [facility] BMI 2023-03-15 17:53:00 24.75 kg/m2 [facility] Oxygen saturation in Arterial blood by Pulse oximetry 2023-03-15 17:53:00 98 /min [facility] Systolic blood pressure 2023-03-04 23:23:00 112 mm[Hg] [facility] Diastolic blood pressure 2023-03-04 23:23:00 59 mm[Hg] [facility] Heart rate 2023-03-04 23:23:00 77 /min [facility] Body temperature 2023-03-04 23:23:00 36.94 C[place] [facility] Body height 2023-03-04 23:23:00 154.9 cm [facility] Body weight 2023-03-04 23:23:00 59.648 kg [facility] BMI 2023-03-04 23:23:00 24.85 kg/m2 [facility] Oxygen saturation in Arterial blood by Pulse oximetry 2023-03-04 23:23:00 95 /min [facility] Oxygen saturation in Arterial blood by Pulse oximetry 2023-03-01 16:55:00 98 /min [facility] Systolic blood pressure 2023-03-01 16:51:00 115 mm[Hg] [facility] Diastolic blood pressure 2023-03-01 16:51:00 69 mm[Hg] [facility] Heart rate 2023-03-01 16:51:00 55 /[facility] Respiratory rate 2023-03-01 16:51:00 14 /min [facility] Body temperature 2023-03-01 15:40:00 36.11 Coret[place] [facility] Body height 2023-02-22 18:00:00 154.9 cm [facility] Body weight 2023-02-22 18:00:00 58.968 kg [facility] BMI 2023-02-22 18:00:00 24.56 kg/m2 [facility] Oxygen saturation in Arterial blood by Pulse oximetry 2023-03-01 16:55:00 98 /min [facility] Systolic blood pressure 2023-03-01 16:51:00 115 mm[Hg] [facility] Diastolic blood pressure 2023-03-01 16:51:00 69 mm[Hg] [facility] Heart rate 2023-03-01 16:51:00 55 /min [facility] Respiratory rate 2023-03-01 16:51:00 14 /min [facility] Body temperature 2023-03-01 15:40:00 36.11 Coret[place] [facility] Body height 2023-02-22 18:00:00 154.9 cm [facility] Body weight 2023-02-22 18:00:00 58.968 kg [facility] BMI 2023-02-22 18:00:00 24.56 kg/m2 [facility] Systolic blood pressure 2023-02-03 13:22:00 105 mm[Hg] [facility] Diastolic blood pressure 2023-02-03 13:22:00 65 mm[Hg] [facility] Heart rate 2023-02-03 13:22:00 76 /min [facility] Body height 2023-02-03 13:22:00 154.9 cm [facility] Body weight 2023-02-03 13:22:00 60.328 kg [facility] BMI 2023-02-03 13:22:00 25.13 kg/m2 [facility] Oxygen saturation in Arterial blood by Pulse oximetry 2023-02-03 13:22:00 99 /min [facility] Systolic blood pressure 2023-01-15 00:33:00 118 mm[Hg] [facility] Diastolic blood pressure 2023-01-15 00:33:00 74 mm[Hg] [facility] Heart rate 2023-01-15 00:33:00 66 /min [facility] Body temperature 2023-01-15 00:33:00 37 [place] [facility] Respiratory rate 2023-01-15 00:33:00 16 /min [facility] Body height 2023-01-15 00:33:00 154.9 cm [facility] Body weight 2023-01-15 00:33:00 60.283 kg [facility] BMI 2023-01-15 00:33:00 25.11 kg/m2 [facility] Oxygen saturation in Arterial blood by Pulse oximetry 2023-01-15 00:33:00 98 /min [facility] Systolic blood pressure 2022-12-29 19:45:00 109 mm[Hg] [facility] Diastolic blood pressure 2022-12-29 19:45:00 70 mm[Hg] [facility] Heart rate 2022-12-29 19:45:00 68 /min [facility] Body temperature 2022-12-29 19:45:00 36.89 C[place] [facility] Respiratory rate 2022-12-29 19:45:00 18 /min [facility] Body height 2022-12-29 19:45:00 154.9 cm [facility] Body weight 2022-12-29 19:45:00 60.328 kg [facility] BMI 2022-12-29 19:45:00 25.13 kg/m2 [facility] Systolic blood pressure 2022-11-12 15:34:00 104 mm[Hg] [facility] Diastolic blood pressure 2022-11-12 15:34:00 67 mm[Hg] [facility] Heart rate 2022-11-12 15:34:00 62 /min [facility] Body temperature 2022-11-12 15:34:00 37.11 C[place] [facility] Body height 2022-11-12 15:34:00 154.9 cm [facility] 2022-11-12 15:34:00 63.05 kg [facility] BMI 2022-11-12 15:34:00 26.26 kg/m2 [facility] Systolic blood pressure 2022-09-17 17:01:00 107 mm[Hg] [facility] Diastolic blood pressure 2022-09-17 17:01:00 66 mm[Hg] [facility] Heart rate 2022-09-17 17:01:00 65 /min [facility] Respiratory rate 2022-09-17 17:01:00 18 /min [facility] Body height 2022-09-17 17:01:00 154.9 cm [facility] Body weight 2022-09-17 17:01:00 68.04 kg [facility] BMI 2022-09-17 17:01:00 28.34 kg/m2 [facility] Systolic blood pressure 2022-07-07 16:50:00 96 mm[Hg] [facility] Diastolic blood pressure 2022-07-07 16:50:00 63 mm[Hg] [facility] Heart rate 2022-07-07 16:50:00 64 /min [facility] Body temperature 2022-07-07 16:50:00 36.72 C[place] [facility] Respiratory rate 2022-07-07 16:50:00 18 /min [facility] Body height 2022-07-07 16:50:00 154.9 cm [facility] Body weight 2022-07-07 16:50:00 70.308 kg [facility] BMI 2022-07-07 16:50:00 29.29 kg/m2 [facility] Systolic blood pressure 2022-06-09 15:03:00 98 mm[Hg] [facility] Diastolic blood pressure 2022-06-09 15:03:00 65 mm[Hg] [facility] Heart rate 2022-06-09 15:03:00 79 /min [facility] Body temperature 2022-06-09 15:03:00 36.44 C[place] [facility] Respiratory rate 2022-06-09 15:03:00 18 /min [facility] Body height 2022-06-09 15:03:00 154.9 cm [facility] Body weight 2022-06-09 15:03:00 71.215 kg [facility] BMI 2022-06-09 15:03:00 29.66 kg/m2 [facility] Systolic blood pressure 2022-05-12 18:02:00 101 mm[Hg] [facility] Diastolic blood pressure 2022-05-12 18:02:00 67 mm[Hg] [facility] Heart rate 2022-05-12 18:02:00 53 /min [facility] Body temperature 2022-05-12 18:02:00 36.61 C[place] [facility] Respiratory rate 2022-05-12 18:02:00 16 /min [facility] Body height 2022-05-12 18:02:00 154.9 cm [facility] Body weight 2022-05-12 18:02:00 73.936 kg [facility] BMI 2022-05-12 18:02:00 30.80 kg/m2 [facility] Systolic blood pressure 2022-04-22 12:18:00 106 mm[Hg] [facility] Diastolic blood pressure 2022-04-22 12:18:00 55 mm[Hg] [facility] Heart rate 2022-04-22 12:18:00 53 /[facility] Body temperature 2022-04-22 12:18:00 36.5 Coret[place] [facility] Respiratory rate 2022-04-22 12:18:00 16 /min [facility] Oxygen saturation in Arterial blood by Pulse oximetry 2022-04-22 09:25:00 99 /min [facility] Body height 2022-04-20 08:51:00 154.9 cm [facility] Body weight 2022-04-20 08:51:00 87.272 kg [facility] [facility] BMI 2022-04-20 08:51:00 36.35 kg/m2 [facility] Systolic blood pressure 2022-04-14 15:06:00 106 mm[Hg] [facility] Diastolic blood pressure 2022-04-14 15:06:00 70 mm[Hg] [facility] Heart rate 2022-04-14 15:06:00 86 /min [facility] Body temperature 2022-04-14 15:06:00 36.78 Coretta [facility] Respiratory rate 2022-04-14 15:06:00 18 /min [facility] Body height 2022-04-14 15:06:00 154.9 cm [facility] Body weight 2022-04-14 15:06:00 86.183 kg [facility] BMI 2022-04-14 15:06:00 35.90 kg/m2 [facility] Systolic blood pressure 2022-04-08 15:56:00 106 mm[Hg] [facility] Diastolic blood pressure 2022-04-08 15:56:00 68 mm[Hg] [facility] Heart rate 2022-04-08 15:56:00 65 /min [facility] Body temperature 2022-04-08 15:56:00 36.78 Coretta [facility] Respiratory rate 2022-04-08 15:56:00 18 /min [facility] Body height 2022-04-08 15:56:00 154.9 cm [facility] Body weight 2022-04-08 15:56:00 84.369 kg [facility] BMI 2022-04-08 15:56:00 35.14 kg/m2 [facility] Systolic blood pressure 2022-04-01 16:10:00 122 mm[Hg] [facility] Diastolic blood pressure 2022-04-01 16:10:00 71 mm[Hg] [facility] Heart rate 2022-04-01 16:10:00 78 /min [facility] Body temperature 2022-04-01 16:10:00 36.78 Coretta [facility] Respiratory rate 2022-04-01 16:10:00 18 /min [facility] Body height 2022-04-01 16:10:00 154.9 cm [facility] Body weight 2022-04-01 16:10:00 84.278 kg [facility] BMI 2022-04-01 16:10:00 35.11 kg/m2 [facility] Procedures Procedure Date / Time Performed Performing Clinician Source RAPID STREP SCREEN FOR GROUP A 2024-06-03 02:57:00 Tristan Gautam [facility] POCT TEST 2024-06-03 02:19:00 Shaun Gautam [facility] URINALYSIS 2024-06-03 02:05:00 Tristan Gautam [facility] ADC CLC OR LCC ONLY - WET PREP 2024-06-03 02:05:00 Tirstan Gautam [facility] POCT TEST 2023-05-23 19:07:00 Carolynn Esparza [facility] CT ABDOMEN PELVIS W CONTRAST 2023-05-15 04:14:11 Alyson Michel [facility] COMP. METABOLIC PANEL (68599) 2023-05-15 03:55:00 Alyson Michel [facility] CBC WITH DIFF 2023-05-15 03:55:00 Alyson Michel [facility] NOTICE OF PRIVACY PRACTICES 2023-05-15 03:39:09 Doctor Unassigned, Artois [facility] CONSENT/REFUSAL FOR DIAGNOSIS AND TREATMENT 2023-05-15 03:35:18 Doctor Unassigned, Artois [facility] CBC WITH DIFF 2023-05-14 10:11:00 Kalina Haro [facility] CBC WITH DIFF 2023-05-14 10:11:00 Estrellita Kalina [facility] CBC WITH DIFF 2023-05-14 10:11:00 Jackie Harosol [facility] EMERGENCY SERVICES AGREEMENTS AND AUTHORIZATIONS 2023-05-14 05:01:00 Doctor Unassigned, Artois [facility] SURGICAL PATHOLOGY EXAM 2023-05-14 00:46:00 Jackie Pollacksol [facility] LAPAROSCOPIC SALPINGECTOMY 2023-05-13 23:47:00 Patience Lyon Kalina [facility] INTRAUTERINE DEVICE REMOVAL 2023-05-13 23:47:00 Jackie Harosol [facility] LAPAROSCOPIC SALPINGECTOMY 2023-05-13 23:47:00 Patience Lyon Kalina [facility] INTRAUTERINE DEVICE REMOVAL 2023-05-13 23:47:00 Estrellita Kalina [facility] HB ABO GROUPING 2023-05-13 22:52:00 Alyson Michel [facility] HB ABO GROUPING 2023-05-13 22:52:00 Alyson Michel [facility] HB ABO GROUPING 2023-05-13 22:52:00 Alyson Michel [facility] COMP. METABOLIC PANEL ([id number]) 2023-05-13 20:27:00 Alyson Michel [facility] TOTAL BETA HCG ASSAY 2023-05-13 20:27:00 Aidan Michel [facility] CBC WITH DIFF 2023-05-13 20:27:00 Alyson Michel [facility] COMP. METABOLIC PANEL ([id number]) 2023-05-13 20:27:00 Alyson Michel [facility] TOTAL BETA HCG ASSAY 2023-05-13 20:27:00 Aidan Michel [facility] CBC WITH DIFF 2023-05-13 20:27:00 Alyson Michel [facility] COMP. METABOLIC PANEL ([id number]) 2023-05-13 20:27:00 Alyson Michel [facility] TOTAL BETA HCG ASSAY 2023-05-13 20:27:00 Aidan Michel [facility] CBC WITH DIFF 2023-05-13 20:27:00 Alyson Michel [facility] CONSENT/REFUSAL FOR DIAGNOSIS AND TREATMENT 2023-05-13 19:34:56 Doctor Unassigned, Artois [facility] CONSENT/REFUSAL FOR DIAGNOSIS AND TREATMENT 2023-05-13 19:34:56 Doctor Unassigned, Artois [facility] CONSENT/REFUSAL FOR DIAGNOSIS AND TREATMENT 2023-05-13 19:34:56 Doctor Unassigned, Artois [facility] FIRST TRIMESTER LESS THAN 14 WEEKS WITH TRANSVAGINAL 2023-05-13 18:58:29 Carolynn Esparza [facility] HOSPITAL ADMISSION 2023-05-13 05:01:00 Doctor Un assigned, Artois [facility] FIRST TRIMESTER LESS THAN 14 WEEKS WITH TRANSVAGINAL 2023-05-10 22:00:00 Kenny Finley [facility] US OB TRANSVAGINAL 2023-05-10 21:37:34 Carolynn Esparza [facility] COMP. METABOLIC PANEL ([id number]) 2023-05-10 21:24:00 Kenny Finley [facility] TOTAL BETA HCG ASSAY 2023-05-10 21:24:00 Kulwinder Finley [facility] CBC WITH DIFF 2023-05-10 21:24:00 Kenny Finley [facility] HB ABO GROUPING 2023-05-10 21:24:00 Kenny Finley [facility] CONSENT/REFUSAL FOR DIAGNOSIS AND TREATMENT 2023-05-10 20:57:33 Doctor Unassigned, Artois [facility] POCT TEST 2023-05-10 00:00:00 Carolynn Esparza [facility] POCT URINALYSIS W/O SPECIFIC GRAVITY 2023-05-10 00:00:00 Carolynn Esparza [facility] LAPAROSCOPIC CHOLECYSTECTOMY 2023-03-01 13:45:00 Mily Delgadillo [facility] POCT TEST 2023-03-01 13:30:00 Eduard Delgadillo [facility] POCT TEST 2023-03-01 13:30:00 Eduard Delgadillo [facility] DAY SURGERY - ADC 2023-03-01 05:01:00 Doctor Enedina ssigned, Artois [facility] DISCLOSURE AND CONSENT, MEDICAL AND SURGICAL PROCEDURES 2023-02-03 05:01:00 Doctor Unassigned, Artois [facility] DISCLOSURE AND CONSENT, MEDICAL AND SURGICAL PROCEDURES 2023-02-03 05:01:00 Doctor Unassigned, Artois [facility] US ABDOMEN LIMITED 2023-01-25 20:54:06 Marley Funez [facility] HSV 1&2, VZV NAAT 2023-01-15 00:53:00 Brianne Britton [facility] CONSENT/REFUSAL FOR DIAGNOSIS AND TREATMENT 2022-11-12 15:24:48 Doctor Unassigned, Artois [facility] POCT TEST 2022-11-12 00:00:00 Marley Funez [facility] PATIENT FINANCIAL POLICY 2022-09-17 16:34:46 Doctor Unassigned, Artois [facility] POCT TEST 2022-06-09 15:12:00 Carolynn Esparza [facility] [employer] [facility] ULTRASOUND 2022-06-09 06:01:00 Doc tor Unassigned, Artois [facility] CBC WITH DIFF 2022-04-21 09:07:00 Carolynn Esparza [facility] CENTRAL NEURAXIAL BLOCK 2022-04-20 14:22:48 Karen Yu [facility] HB ABO GROUPING 2022-04-20 09:20:00 Carolynn Esparza [facility] RHO (D) IMMUNE GLOBULIN 2022-04-20 09:20:00 Carolynn Esparza [facility] CONSENT/REFUSAL FOR DIAGNOSIS AND TREATMENT 2022-04-19 13:13:18 Doctor Unassigned, Artois [facility] ASSIGNMENT OF BENEFITS 2022-04-19 13:12:53 Docto r Unassigned, Artois [facility] POCT URINALYSIS W/O SPECIFIC GRAVITY 2022-04-14 00:00:00 Carolynn Esparza [facility] POCT URINALYSIS W/O SPECIFIC GRAVITY 2022-04-08 00:00:00 Brianne Britton [facility] >14 WEEKS US LIMITED 2022-04-01 17:17:35 Carolynn sEparza [facility] DSU PRE-OP 2022-04-01 05:01:00 Doctor Unass igned, Artois [facility] POCT URINALYSIS W/O SPECIFIC GRAVITY 2022-04-01 00:00:00 Carolynn Esparza [facility] Encounters Start Date/Time End Date/Time Encounter Type Admission Type Attending Clinicians Care Facility Care Department Encounter ID Source 2022-01-29 21:39:50 Outpatient X [facility] TEENA [id number] [facility] 2021-05-18 22:00:59 Emergency [facility] [id number] [facility] 2021-05-16 09:26:29 Emergency [facility] [id number] [facility] 2024-07-28 14:37:00 2024-07-28 15:20:00 Emergency X ALYSON MICHEL SANDRA [facility] ERT [id number] [facility] 2024-07-28 14:37:00 2024-07-28 15:20:00 Emergency Alyson Michel [facility] 1..840.114 350.1.13.10 4.2.7.2.686 [id number] [facility] 2024-05-10 00:00:00 2024-06-16 18:27:10 Patient Secure Msg Doctor Unassigned, Artois Doctor Unassigned, Artois [facility] 1..840.114 350.1.13.10 4.2.7.2.686 [id number] [facility] 2024-06-02 19:20:00 2024-06-02 22:15:00 Emergency X TRISTANTRISTAN PIRES [facility] ERT [id number] [facility] 2024-06-02 19:20:00 2024-06-02 22:15:00 Emergency Tristan Gautam [facility] 1.2.840.114 350.1.13.10 4.2.7.2.686 [id number] [facility] 2024-05-02 00:00:00 2024-06-02 18:19:25 Patient Secure Msg Doctor Unassigned, Artois Doctor Unassigned, Artois [facility] 1..840.114 350.1.13.10 4.2.7.2.686 [id number] [facility] 2024-04-02 11:30:00 2024-04-02 11:30:00 Outpatient R DONALD MCGRATH [facility] [id number] [facility] 2023-12-15 13:30:00 2023-12-15 13:30:00 Outpatient R CARLOYNN ESPARZA [facility] [id number] [facility] 2023-10-28 13:00:00 2023-10-28 13:00:00 Outpatient R DONALD MCGRATH [facility] [id number] [facility] 2023-09-23 10:00:00 2023-09-23 10:00:00 Outpatient R NEMO PRADO CHERYAL [facility] [id number] [facility] 2023-09-08 10:00:00 2023-09-08 10:00:00 Outpatient R CAROLYNN ESPARZA [facility] [id number] [facility] 2023-09-05 00:00:00 2023-09-05 00:00:00 Patient Secure Msg Brianne Britton [facility] 1.2.840.114 350.1.13.10 4.2.7.2.686 [id number] [facility] 2023-06-11 00:00:00 2023-06-11 00:00:00 Patient Secure Msg Carolynn Esparza [facility] 1.2.840.114 350.1.13.10 4.2.7.2.686 [id number] [facility] 2023-05-23 13:30:00 2023-05-23 13:45:00 Commercial Litigation Associate Visit 2, Adc Lab Carolynn Esparza [facility] 1.2.840.114 350.1.13.10 4.2.7.2.686 [id number] [facility] 2023-05-23 13:00:00 2023-05-23 13:16:39 Outpatient R CAROLYNN ESPARZA [facility] [id number] [facility] 2023-05-23 13:00:00 2023-05-23 13:16:39 Routine Visit [facility] 1.2.840.114 350.1.13.10 4.2.7.2.686 [id number] [facility] 2023-05-14 22:43:00 2023-05-15 00:39:00 Emergency X ALYSON MICHEL [facility] ERT [id number] [facility] 2023-05-14 22:43:00 2023-05-15 00:39:00 Emergency Alyson Michel [facility] 1.2840.114 350.1.13.10 4.2.7.2.686 [id number] [facility] 2023-05-13 14:52:00 2023-05-14 09:30:00 Outpatient X JOSE-RACIEL Echols, KALINA JOSE-RACIEL S, KALINA [facility] TEENA [id number] [facility] 2023-05-13 14:52:00 2023-05-14 09:30:00 Emergency Alyson Michel Kalina [facility] 1.2.840.114 350.1.13.10 4.2.7.2.686 [id number] [facility] 2023-05-13 19:00:00 2023-05-13 20:59:00 [facility] [place] 1.2.840.114 350.1.13.10 4.2.7.2.686 [id number] [facility] 2023-05-13 13:19:2023-05-13 14:51:00 Outpatient R CAROLYNN ESPARZA [facility] [id number] [facility] 2023-05-13 13:00:00 2023-05-13 14:51:00 Hospital Encounter Carolynn Esparza [facility] 1.2.840.114 350.1.13.10 4.2.7.2.686 [id number] [facility] 2023-05-12 13:15:00 2023-05-12 13:30:00 Commercial Litigation Associate Visit 2, Adc Lab Carolynn Esparza [facility] 1.2.840.114 350.1.13.10 4.2.7.2.686 [id number] [facility] 2023-05-12 13:15:00 2023-05-12 13:26:14 Outpatient R CAROLYNN ESPARZA [facility] [id number] [facility] 2023-05-12 00:00:00 2023-05-12 00:00:00 Telephone Carolynn Esparza [facility] 1.2.840.114 350.1.13.10 4.2.7.2.686 [id number] [facility] 2023-05-12 00:00:00 2023-05-12 00:00:00 Case Management [facility] 1.2.840.114 350.1.13.10 4.2.7.2.686 [id number] [facility] 2023-05-12 00:00:00 2023-05-12 00:00:00 Telephone [facility] 1.2.840.114 350.1.13.10 4.2.7.2.686 [id number] [facility] 2023-05-12 00:00:00 2023-05-12 00:00:00 Patient Secure Msg Doctor Unassigned, Artois [facility] 1..840.114 350.1.13.10 4.2.7.2.686 [id number] [facility] 2023-05-10 16:05:00 2023-05-10 19:18:00 Emergency X KENNY FINLEY [facility] ERT [id number] [facility] 2023-05-10 16:05:00 2023-05-10 19:18:00 Emergency Kenny Finley [facility] 1.840.114 350.1.13.10 4.2.7.2.686 [id number] [facility] 2023-05-10 15:30:00 2023-05-10 16:25:07 Outpatient R CAROLYNN ESPARZA [facility] [id number] [facility] 2023-05-10 15:30:00 2023-05-10 16:25:07 Office Visit Carolynn Esparza [facility] 1..840.114 350.1.13.10 4.2.7.2.686 [id number] [facility] 2023-03-28 08:30:00 2023-03-28 08:30:00 Outpatient R MILY DELGADILLO [facility] [id number] [facility] 2023-03-25 00:00:00 2023-03-25 00:00:00 Patient Secure Msg Doctor Unassigned, Artois [facility] 1..840.114 350.1.13.10 4.2.7.2.686 [id number] [facility] 2023-03-15 13:30:00 2023-03-15 13:30:00 Office Visit Razia Pitts Laurel [facility] 1..840.114 350.1.13.10 4.2.7.2.686 [id number] [facility] 2023-03-15 13:30:00 2023-03-15 13:29:16 Outpatient R MILY DELGADILLO [facility] [id number] [facility] 2023-03-13 00:00:00 2023-03-13 00:00:00 [facility] 1..840.114 350.1.13.10 4.2.7.2.686 [id number] [facility] 2023-03-04 18:00:00 2023-03-04 18:20:00 Urgent Care Tobi [facility]ACE[facility]EN[facility] 1..840.114 350.1.13.10 4.2.7.2.686 [id number] [facility] 2023-03-04 18:00:00 2023-03-04 18:00:00 Outpatient R TOIB [facility] [id number] [facility] 2023-03-04 00:00:00 2023-03-04 00:00:00 Patient Secure Msg Britton [facility] 1..840.114 350.1.13.10 4.2.7.2.686 [id number] [facility] 2023-03-01 09:20:00 2023-03-01 12:29:00 Surgery Mily Delgadillo [facility] 1..840.114 350.1.13.10 4.2.7.2.686 [id number] [facility] 2023-03-01 08:24:00 2023-03-01 11:55:00 Outpatient R MILY DELGADILLO [facility] [id number] [facility] 2023-03-01 08:24:00 2023-03-01 11:55:00 Hospital Encounter Mily Delgadillo [facility] 1.2.840.114 350.1.13.10 4.2.7.2.686 [id number] [facility] 2023-02-21 00:00:00 2023-02-21 00:00:00 Patient Secure Msg Mily Delgadillo [facility] 1.2.840.114 350.1.13.10 4.2.7.2.686 [id number] [facility] 2023-02-18 00:00:00 2023-02-18 00:00:00 Patient Secure Msg Tobi [facility] 1.2.840.114 350.1.13.10 4.2.7.2.686 [id number] [facility] 2023-02-17 00:00:00 2023-02-17 00:00:00 Patient Secure g Brianne Britton [facility] 1.2.840.114 350.1.13.10 4.2.7.2.686 [id number] [facility] 2023-02-03 08:30:00 2023-02-03 10:56:39 Outpatient R MILY DELGADILLO [facility] [id number] [facility] 2023-02-03 08:30:00 2023-02-03 10:56:39 Office Visit Mily Delgadillo [facility] 1.2.840.114 350.1.13.10 4.2.7.2.686 [id number] [facility] 2023-01-29 00:00:00 2023-01-29 00:00:00 Telephone Marley Funez [facility] 1.2.840.114 350.1.13.10 4.2.7.2.686 [id number] [facility] 2023-01-26 00:00:00 2023-01-26 00:00:00 Patient Secure [facility] 1.2.840.114 350.1.13.10 4.2.7.2.686 [id number] [facility] 2023-01-26 00:00:00 2023-01-26 00:00:00 Marley Scott [facility] 1.2.840.114 350.1.13.10 4.2.7.2.686 [id number] [facility] 2023-01-25 15:19:29 2023-01-25 23:59:00 Outpatient R MARLEY FUNEZ [facility] [id number] [facility] 2023-01-25 15:19:29 2023-01-25 23:59:00 Hospital Encounter Marley Funez [facility] 1.2.840.114 350.1.13.10 4.2.7.2.686 [id number] [facility] 2023-01-15 00:00:00 2023-01-15 00:00:00 Patient Secure Msg Britton [facility] 1.2.840.114 350.1.13.10 4.2.7.2.686 [id number] [facility] 2023-01-14 19:20:00 2023-01-14 20:53:05 Outpatient R BRIANNE BRITTON [facility] [id number] [facility] 2023-01-14 19:20:00 2023-01-14 20:53:05 Urgent Care Brianne Britton Unknown, Attending [facility]?JACEK [facility] 1.2.840.114 350.1.13.10 4.2.7.2.686 [id number] [facility] 2023-01-12 00:00:00 2023-01-12 00:00:00 Patient Secure Msg [facility]ita [facility] 1.2.840.114 350.1.13.10 4.2.7.2.686 [id number] [facility] 2023-01-03 00:00:00 2023-01-03 00:00:00 Refill Marley Funez A [facility] 1.2.840.114 350.1.13.10 4.2.7.2.686 [id number] [facility] 2023-01-02 00:00:00 2023-01-02 00:00:00 Patient Secure Msg Marley Funez [facility] 1.2.840.114 350.1.13.10 4.2.7.2.686 [id number] [facility] 2022-12-30 00:00:00 2022-12-30 00:00:00 Case Management Brianne Britton [facility] 1.2.840.114 350.1.13.10 4.2.7.2.686 [id number] [facility] 2022-12-29 15:15:00 2022-12-29 15:20:41 Outpatient R BRIANNE BRITTON [facility] [id number] [facility] 2022-12-29 15:15:00 2022-12-29 15:20:41 Office Visit Brianne Britton [facility] 1.2.840.114 350.1.13.10 4.2.7.2.686 [id number] [facility] 2022-12-10 00:00:00 2022-12-10 00:00:00 Outpatient R MARLEY FUNEZ [facility] [id number] [facility] 2022-11-24 00:00:00 2022-11-24 00:00:00 Telephone Marley Funez [facility] RESEN[facility] 1.2840.114 350.1.13.10 4.2.7.2.686 [id number] [facility] 2022-11-12 10:30:00 2022-11-12 11:14:36 Outpatient R MARLEY FUNEZ [facility] [id number] [facility] 2022-11-12 10:30:00 2022-11-12 11:14:36 Office Visit Marley Funez [facility] YULIANA?[facility] 1.840.114 350.1.13.10 4.2.7.2.686 [id number] [facility] 2022-11-12 00:00:00 2022-11-12 00:00:00 Orders Only Doctor Unassigned, Artois [facility] 1.840.114 350.1.13.10 4.2.7.2.686 [id number] [facility] 2022-11-04 09:30:00 2022-11-04 09:45:00 Commercial Litigation Associate Visit 2, [facility] Nemo Prado [facility] 1.2840.114 350.1.13.10 4.2.7.2.686 [id number] [facility] 2022-11-04 09:30:00 2022-11-04 09:30:00 Outpatient R NEMO PRADO CHERYAL [facility] [id number] [facility] 2022-11-02 10:30:00 2022-11-02 10:30:00 Outpatient R [facility] [id number] [facility] 2022-10-14 11:00:00 2022-10-14 11:00:00 Outpatient R [facility] [id number] [facility] 2022-09-20 09:15:00 2022-09-20 09:15:00 Outpatient R MARKWONAURELIANONEMO DELUCAAURELIANONEMO DELUCA [facility] [id number] [facility] 2022-09-17 10:30:00 2022-09-17 11:21:57 Outpatient R MARKWONAURELIANONEMO DELUCA MARKWONAURELIANONEMO DELUCA [facility] [id number] [facility] 2022-09-17 10:30:00 2022-09-17 11:21:57 Office Visit VilmaNemo deluca [facility] [facility] 1.0.114 350.1.13.10 4.2.7.2.686 [id number] 134 [id number] [facility] 2022-09-17 00:00:00 2022-09-17 00:00:00 Orders Only Doctor Unassigned, Artois [facility] 1.840.114 350.1.13.10 4.2.7.2.686 [id number] [facility] 2022-09-10 00:00:00 2022-09-10 00:00:00 Pre Visit Outreach Nell Chen 1.840.114 350.1.13.10 4.2.7.2.686 [id number] [facility] 2022-07-15 10:30:00 2022-07-15 10:30:00 Outpatient R BRIANNE BRITTON [facility] [id number] [facility] 2022-07-07 10:45:00 2022-07-07 11:19:46 Outpatient R CAROLYNN ESPARZA [facility] [id number] [facility] 2022-07-07 10:45:00 2022-07-07 11:19:46 Office Visit Carolynn Esparza [facility] 1.840.114 350.1.13.10 4.2.7.2.686 [id number] 134 [id number] [facility] 2022-06-09 09:00:00 2022-06-09 10:13:16 Outpatient R CAROLYNN ESPARZA [facility] [id number] [facility] 2022-06-09 09:00:00 2022-06-09 10:13:16 Office Visit Carolynn Esparza [facility] 1.840.114 350.1.13.10 4.2.7.2.686 [id number] 134 [id number] [facility] 2022-06-09 00:00:00 2022-06-09 00:00:00 Orders Only Doctor Unassigned, Artois [facility] 1.84.114 350.1.13.10 4.2.7.2.686 [id number] [facility] 2022-05-12 13:00:00 2022-05-12 13:20:00 Outpatient R CAROLYNN ESPARZA [facility] [id number] [facility] 2022-05-12 13:00:00 2022-05-12 13:20:00 Routine Visit Carolynn Esparza [facility] 1.840.114 350.1.13.10 4.2.7.2.686 [id number] 134 [id number] [facility] 2022-04-20 03:41:00 2022-04-22 09:40:00 Hospital Encounter Carolynn Esparza [facility] 1.2.840.114 350.1.13.10 4.2.7.2.686 [id number] 083 [id number] [facility] 2022-04-20 08:56:00 2022-04-20 18:22:00 Anesthesia Event Livan Yu Jeffrey S [facility] 1.2.840.114 350.1.13.10 4.2.7.2.686 [id number] [id number] [facility] 2022-04-20 08:47:11 2022-04-20 08:47:11 Anesthesia Event Livan Yu [facility] 1.2840.114 350.1.13.10 4.2.7.2.686 [id number] 083 [id number] [facility] 2022-04-19 08:30:00 2022-04-19 08:45:00 Commercial Litigation Associate Visit Pob, Adc Lab Main Carolynn Esparza [facility] 1.284.114 350.1.13.10 4.2.7.2.686 [id number] 353 [id number] [facility] 2022-04-19 08:00:00 2022-04-19 08:15:00 Laboratory Only Only, Adc Test Carolynn Esparza [facility] 1.284.114 350.1.13.10 4.2.7.2.686 [id number] [facility] 2022-04-19 08:00:00 2022-04-19 08:00:00 Outpatient R CAROLYNN ESPARZA [facility] [id number] [facility] 2022-04-19 08:00:00 2022-04-19 08:00:00 Outpatient R CAROLYNN ESPARZA [facility] [id number] [facility] 2022-04-14 10:00:00 2022-04-14 10:15:00 Routine Visit Carolynn Esparza [facility] 1.2840.114 350.1.13.10 4.2.7.2.686 [id number] 134 [id number] [facility] 2022-04-14 10:00:00 2022-04-14 10:00:00 Outpatient R CAROLYNN ESPARZA [facility] [id number] [facility] 2022-04-09 10:00:00 2022-04-09 10:15:00 Commercial Litigation Associate Visit 2, [facility] 1..840.114 350.1.13.10 4.2.7.2.686 [id number] 353 [id number] [facility] 2022-04-09 10:00:00 2022-04-09 10:00:00 Outpatient R ISAIAS [facility] [id number] [facility] 2022-04-08 10:30:00 2022-04-08 11:20:01 [facility] [id number] [facility] 2022-04-08 10:30:00 2022-04-08 11:20:01 Routine Visit Brianne Britton [facility] 1..840.114 350.1.13.10 4.2.7.2.686 [id number] 134 [id number] [facility] 2022-04-08 11:15:00 2022-04-08 11:15:00 Outpatient R TOBI [facility] [id number] [facility] 2022-04-01 11:00:00 2022-04-01 11:54:28 Outpatient R ISAIAS [facility] [id number] [facility] 2022-04-01 11:00:00 2022-04-01 11:54:28 Routine Visit Carolynn Esparza [facility] 1..840.114 350.1.13.10 4.2.7.2.686 [id number] 134 [id number] [facility] 2022-04-01 11:00:00 2022-04-01 11:54:28 Outpatient R CAROLYNN ESPARZA [facility] [id number] [facility] 2022-04-01 00:00:00 2022-04-01 00:00:00 Orders Only Doctor Unassigned, Artois [facility] 1.2.840.114 350.1.13.10 4.2.7.2.686 [id number] [facility] 2022-03-25 12:00:00 2022-03-25 12:52:58 Outpatient R GIDEON SANTOS [facility] [id number] [facility] 2022-03-25 12:00:00 2022-03-25 12:52:58 Urgent Care Gideon Santos, [facility] 1.2.840.114 350.1.13.10 4.2.7.2.686 [id number] [facility] 2022-03-25 11:00:00 2022-03-25 11:32:10 Routine Visit Brianne Britton [facility] 1.2.840.114 350.1.13.10 4.2.7.2.686 [id number] 134 [id number] [facility] 2022-03-11 11:15:00 2022-03-11 12:07:16 Routine Visit Carolynn Esparza [facility] 1.2.840.114 350.1.13.10 4.2.7.2.686 [id number] 134 [id number] [facility] 2022-03-11 11:15:00 2022-03-11 12:07:16 Outpatient R CAROLYNN ESPARZA [facility] [id number] [facility] 2022-03-09 13:30:00 2022-03-09 14:15:00 Commercial Litigation Associate Visit 2, [facility] Usg Room Lesly Elliott [facility] 1.84.114 350.1.13.10 4.2.7.2.686 [id number] [facility] 2022-03-09 13:30:00 2022-03-09 13:30:00 Outpatient P LESLY ELLIOTT [facility] [id number] [facility] 2022-03-01 08:45:00 2022-03-01 08:45:00 Outpatient P [facility] [id number] [facility] 2022-02-24 00:00:00 2022-02-24 00:00:00 Telephone Carolynn Esparza [facility] 1.840.114 350.1.13.10 4.2.7.2.686 [id number] 134 [id number] [facility] 2022-02-23 16:15:00 2022-02-23 16:46:49 Outpatient R TOBI [facility] [id number] [facility] 2022-02-23 16:15:00 2022-02-23 16:46:49 Routine Visit EstuardotaylorBrianne ortega [facility] 1..840.114 350.1.13.10 4.2.7.2.686 [id number] 134 [id number] [facility] 2022-02-23 00:00:00 2022-02-23 00:00:00 Orders Only Doctor Unassigned, Artois [facility] 1.84.114 350.1.13.10 4.2.7.2.686 [id number] [id number] [facility] 2022-02-16 16:00:00 2022-02-16 16:00:00 Outpatient R TOBI BRIANNE [facility] [id number] [facility] 2022-02-08 00:00:00 2022-02-08 00:00:00 Telephone Brianne Britton [facility] 1..840.114 350.1.13.10 4.2.7.2.686 [id number] 134 [id number] [facility] 2022-02-05 08:45:00 2022-02-05 09:00:00 Commercial Litigation Associate Visit 2, [facility] 1..840.114 350.1.13.10 4.2.7.2.686 [id number] [facility] 2022-02-05 08:45:00 2022-02-05 08:45:00 Outpatient R TOBI [facility] [id number] [facility] 2022-02-02 14:00:00 2022-02-02 14:32:25 Outpatient R CAROLYNN ESPARZA [facility] [id number] [facility] 2022-02-02 14:00:00 2022-02-02 14:32:25 Routine Visit Carolynn Esparza [facility] 1.840.114 350.1.13.10 4.2.7.2.686 [id number] 134 [id number] [facility] 2022-02-02 09:30:00 2022-02-02 09:30:00 Outpatient R CAROLYNN ESPARZA [facility] [id number] [facility] 2022-01-29 12:58:00 2022-01-29 21:22:00 Outpatient X ISAIAS [facility] [id number] [facility] 2022-01-29 12:58:00 2022-01-29 21:22:00 Emergency Fish, CassyCarolynn Sky [facility] 1..840.114 350.1.13.10 4.2.7.2.686 [id number] [facility] 2022-01-21 00:00:00 2022-01-21 00:00:00 Telephone Brianne Britton [facility] 1.2.840.114 350.1.13.10 4.2.7.2.686 [id number] 134 [id number] [facility] 2022-01-07 00:00:00 2022-01-07 00:00:00 Case Management Brianne Britton [facility] 1.2.840.114 350.1.13.10 4.2.7.2.686 [id number] 134 [id number] [facility] 2022-01-05 11:00:00 2022-01-05 11:37:38 Routine Visit Brianne Britton [facility] 1..840.114 350.1.13.10 4.2.7.2.686 [id number] 134 [id number] [facility] 2022-01-05 11:00:00 2022-01-05 11:37:38 Outpatient R ESTUARDODARIN [facility] [id number] [facility] 2022-01-05 11:00:00 2022-01-05 11:00:00 [facility] [id number] [facility] 2021-12-29 00:00:00 2021-12-29 00:00:00 Telephone Carolynn Esparza [facility] 1..840.114 350.1.13.10 4.2.7.2.686 [id number] 134 [id number] [facility] 2021-12-23 10:30:00 2021-12-23 11:30:00 Commercial Litigation Associate Visit Ultrasound, Gio Alvares [facility] [employer]PERATING ENG[facility] 1..840.114 350.1.13.10 4.2.7.2.686 [id number] [facility] 2021-12-23 10:30:00 2021-12-23 10:30:00 Outpatient P GIO DUKES [facility] [id number] [facility] 2021-12-08 13:00:00 2021-12-08 13:32:10 Outpatient R CAROLYNN ESPARZA [facility] [id number] [facility] 2021-12-08 13:00:00 2021-12-08 13:32:10 [facility]ine Visit [facility] 1.2.840.114 350.1.13.10 4.2.7.2.686 [id number] 134 [id number] [facility] 2021-12-08 13:00:00 2021-12-08 13:00:00 Outpatient R CAROLYNN ESPARZA [facility] [id number] [facility] 2021-11-10 13:00:00 2021-11-10 13:15:00 Commercial Litigation Associate Visit 2, Adc Lab Brianne Britton [facility] 1.2.840.114 350.1.13.10 4.2.7.2.686 [id number] [facility] 2021-11-10 13:00:00 2021-11-10 13:00:00 Outpatient R TOBIBRIANNE [facility] [id number] [facility] 2021-11-10 11:15:00 2021-11-10 11:34:32 Routine Visit TobiBrianne [facility] 1.2.840.114 350.1.13.10 4.2.7.2.686 [id number] 134 [id number] [facility] 2021-11-10 11:15:00 2021-11-10 11:34:32 Outpatient R TOBIBRIANNE [facility] [id number] [facility] 2021-11-10 11:15:00 2021-11-10 11:15:00 Outpatient BRIANNE NGUYỄN [facility] [id number] [facility] 2021-11-04 00:00:00 2021-11-04 00:00:00 Orders Only Doctor Unassigned, Artois [facility] 1.2.840.114 350.1.13.10 4.2.7.2.686 [id number] [facility] 2021-10-22 00:00:00 2021-10-22 00:00:00 Telephone Carolynn Esparza [facility] 1.2.840.114 350.1.13.10 4.2.7.2.686 [id number] 134 [id number] [facility] 2021-10-20 00:00:00 2021-10-20 00:00:00 Telephone Carolynn Esparza [facility] 1.2.840.114 350.1.13.10 4.2.7.2.686 [id number] 134 [id number] [facility] 2021-10-16 00:00:00 2021-10-16 00:00:00 Telephone Carolynn Esparza [facility] 1.2.840.114 350.1.13.10 4.2.7.2.686 [id number] 134 [id number] [facility] 2021-10-16 00:00:00 2021-10-16 00:00:00 Telephone Carolynn Esparza [facility] 1.2.840.114 350.1.13.10 4.2.7.2.686 [id number] 134 [id number] [facility] 2021-10-15 09:45:00 2021-10-15 10:00:00 Commercial Litigation Associate Visit 2, Adc Lab Carolynn Esparza [facility] 1.2.840.114 350.1.13.10 4.2.7.2.686 [id number] 353 [id number] [facility] 2021-10-15 09:45:00 2021-10-15 09:45:00 Outpatient R [facility] [id number] [facility] 2021-10-15 09:45:00 2021-10-15 09:45:00 Outpatient R ISAIAS [facility] [id number] [facility] 2021-10-15 00:00:00 2021-10-15 00:00:00 Case Management Brianne Britton [facility] 1.114 350.1.13.10 4.2.7.2.686 [id number] [facility] 2021-10-15 00:00:00 2021-10-15 00:00:00 Orders Only Doctor Unassigned, Artois [facility] 1.84.114 350.1.13.10 4.2.7.2.686 [id number] [facility] 2021-10-14 14:00:00 2021-10-14 15:15:08 Outpatient R CAROLYNN ESPARZA [facility] [id number] [facility] 2021-10-14 14:00:00 2021-10-14 15:15:08 Initial Visit Carolynn Esparza [facility] 1.840.114 350.1.13.10 4.2.7.2.686 [id number] 134 [id number] [facility] 2021-10-14 14:00:00 2021-10-14 15:15:08 Outpatient R CAROLYNN ESPARZA [facility] [id number] [facility] 2021-10-14 00:00:00 2021-10-14 00:00:00 Orders Only Doctor Unassigned, Artois [facility] .84.114 350.1.13.10 4.2.7.2.686 [id number] [id number] [facility] 2021-03-28 14:12:00 2021-03-28 16:13:00 Emergency Avis Banuelos [facility] 1.2.840.114 350.1.13.10 4.2.7.2.686 [id number] [facility] 2020-08-20 14:30:00 2020-08-20 14:30:00 Outpatient BRIANNE NGUYỄN [facility] [id number] [facility] 2020-07-31 13:00:00 2020-07-31 13:00:00 Outpatient BRIANNE NGUYỄN [facility] [id number] [facility] 2020-06-21 11:46:00 2020-06-21 13:39:00 Emergency Charlene Whyte [facility] 1.2.840.114 350.1.13.10 4.2.7.2.686 [id number] [facility] 2020-06-21 00:00:00 2020-06-21 00:00:00 Orders Only Doctor Unassigned, Artois [facility] 1.2.840.114 350.1.13.10 4.2.7.2.686 [id number] [facility] 2020-05-28 13:30:00 2020-05-28 13:30:00 Outpatient BRIANNE NGUỄYN [facility] [id number] [facility] 2020-05-01 09:30:00 2020-05-01 09:30:00 Outpatient CAROLYNN WILSON [facility] [id number] [facility] 2020-04-30 08:30:00 2020-04-30 08:30:00 Outpatient BRIANNE NGUYỄN [facility] [id number] [facility] 2020-04-28 15:15:00 2020-04-28 15:15:00 Outpatient CAROLYNN WILSON [facility] [id number] [facility] 2019-03-06 13:43:15 2019-03-06 14:49:14 Office Visit Marley Funez [facility] Office [facility] 1.2.840.114 350.1.13.10 4.2.7.2.686 [id number] [facility] 2019-03-05 00:00:00 2019-03-05 00:00:00 Case Management Brianne Britton [facility] Building 1.2.840.114 350.1.13.10 4.2.7.2.686 [id number] 134 [id number] [facility] 2019-03-05 00:00:00 2019-03-05 00:00:00 Telephone Carolynn Esparza [facility] 1.2.840.114 350.1.13.10 4.2.7.2.686 [id number] 134 [id number] [facility] 2019-03-01 08:58:15 2019-03-01 09:51:29 Office Visit Brianne Britton [facility] Building 1.2.840.114 350.1.13.10 4.2.7.2.686 [id number] 134 [id number] [facility] Results Test Description Test Time Test Comments Results Result Co mments Source [facility] 02:22:33* Test Item Value Reference Range Interpretation Comme nts APPEARANCE (test code = 4561017374) Slightly Cloudy Clear A COLOR (test code = 4772845627) Julieta Yellow A PH (test code = 9764399023) 5.0 4.8-8.0 SP GRAVITY (test code = 3302541249) 1.028 1.003-1.030 GLU U QUAL (test code = 9347810129) Normal Normal BLOOD (test code = 2970269495) 1+ Negative A KETONES (test code = 1239468923) 5 mg/dL Negative A PROTEIN (test code = 2887-8) 30 mg/dL Negative A UROBILIN (test code = 8894766898) Normal Normal BILIRUBIN (test code = 5386173591) Negative Negative NITRITE (test code = 4675749578) Negative Negative LEUK ZAIDA (test code = 4866021365) Negative Negative RBC/HPF (test code = 6954514096) 5 0-3 H WBC/HPF (test code = 8313393500) 3 0-5 BACTERIA (test code = 9457942482) Negative Negative MUCOUS (test code = 8180677976) Marked Negative LPF A SQ EPITH (test code = 7126473145) 5 HPF Lab Interpretation (test cod e = 86086-1) Abnormal [facility] [id number] 02:19:00* Test Item Value Reference Range Interpretation Comme nts POCT PREG (test code = 1605) Negative On board controls acceptable with C Line (test code = 3574) Yes Lab Interpretation (test cod e = 63709-8) Normal [facility] [id number] 19:07:00* Test Item Value Reference Range Interpretation Comme nts POCT PREG (test code = 1605) Negative On board controls acceptable with C Line (test code = 3574) Yes POCT PREG LOT # (test code = 3575) POCT PREG TEST DATE (test code = 3576) ENE (test code = ENE) accurate developme nt and interpretation of all internal controls Lab Interpretation (test code = 81479-6) Normal [facility] [id number] 17:09:45* Test Item Value Reference Range Interpretation Comme nts Case Report (test code = 0350831609) Surgical Pathology ?Case: [id number] ? Authorizing Provider: ?Kalina Haro MD ?Collected: ? 05/13/20231945 ?Ordering Location: ? ? [facility] ? ? ?Received: ?05/13/20232151 ? [facility] ?Pathologist: ? Michael, Tatiana Mullins, ? MD ? Specimens: ? A) - FALLOPIAN TUBE, LEFT ? B) - UTERUS, INTRAUTERINE DEVICE REMOVAL ? Final Diagnosis (test code = 5227500444) q7tdqGGnHLSma9hfTNWzwKTt ZzEwMzNcZnRuYmpcdWMxIHtc cnRmMVxhbnNpXGRlZmxhbmcx LATbIYY6fdQvWNMkDCN8SPB1 WqLnNWQlLnYkPQDsDATen1dn y6ZgoVLsxCYmTGdplJBtvjMg lw87sXK0yE43SL4bFTTaBbP2 AERudgY1Nas6IYCaBUUlcHJj O945m1ujo9pnmjJefGJ9zAap VLNswbhvCiM5AKsdRKPyxxes ZHj8NLyxYVHlhQT1YHOchQSh P6KkYGOfJU8zasc5RJV8ZDpb MSGuHoG2VWNehBCwTOHhgReu ILnet333PTG8XmCeCSOeaeFk aDgrjA2kQmQeKKedLJTkAX8j YgQMCQ5VRBVVJVIMOtQjAW4P BWHBJO7QFKGsDQCGP82KSoWK NMHWDNXJFLDNPXgGGZ9VWORH N86WCfhvJSXqDGAsZTEnUAJY TExPUElBTiBUVUJFIFdJVEgg F9nTEqkVKcqAZDIPZCgYVYDG ImTeQwlNB1XsY2hMZFNiNBWN DcJXD5NIAqFaH3zABACYE3XD YItXTMZCEPuBNR1AFCayMQRc nAGbFNFqRVGMKCACVaqrUT2X UtMVGFLLUG9EEWSOAohAIVNO UI1RPsFAYgBofVAxPEHkFKKd SVFETe1MZjXFOhzDFRvCTNLr X5LQL1QmJBONZ0PXTRTOC52q XHBhclxwYXIgUmFzaGEgQWxm JLL3UOopQT1MJ6bWXCYutJFs EUCgnh66XYB7QqSij1X2ONKp PsGvYYHzZN8myHktGPUiIG8e ZZEwN4ovfA8emec3WnNkIXTn CeZ3NBYcaxY5Pig1IUDtIGfj q0hzp4PrJ7MyxEBcxQg7n6lp LINkTyM9jIYzXNrkQ3bqfoOm jNOpPXCjKOv4kIuqNpNsAFBi k7ernvWxVqNyKLHxCZAsPSMq aToyedb2jZ54RDEblW9mzNEi JFpjnqHvSkP9UDdpVYUiVxI2 KSVszQTdPIAbS2fcMHLwNKpq PEQpNFmndHVkDSC1bBncv2E7 bGVzaGVldHtcZjBcZnMyOCBO w9HsBTv2pMpnN6NxYDBwZsJ5 bHQgUGFyYWdyYXBoIEZvbnQ7 hQ21UVfkwwJ1jGFbw3Aqj32z f888wN2gpGRnCDX1DVHbOAEl hUDhFOWyJSI5PGNkhEAdE6xr QEVbZI3dczimHKezSQvvSZWv xQK6ZUAguLFzG6YySJKmPAlk PMEvmsf0SlHxNy0wcKMkiWzk FWmdp1bxr5ofqWFzBto0FCPs QwLwXysrOPqbt9Gjg7bzISGu ol1uQWQ7gVLvfHwgd8Y2mTFr ZJUdqFUitfMdEJBmOiS0UDph FA0vmd57YLMkNPM1ns6ioYSw sYpzimJpzDJfCEqzR9OyZCDw s476ECHtU8PoPHWcn8F3uuTu BuDhFGCuiJC8ckO9GKQuZWn4 kRNrcpO3yaVhzNFhE6ttvX3o VRUdGL6mvxglp5ghQSusUUep YVFfjCJ5wlV0LHCxiGLtY7Qf iK3sSFNaNCfgUYPljhb6CuVs Xf2pvFTheUwcFTqnNewmOYrd XHBnbmNvbnRccGduZGVjXHBs YWluXHBsYWluXGYwXGZzMjRc wDcyzWajyQ2zPdEtKuLiZExa OR5gCZLbY3lltJAkCWUvHPDi Z4mpFfMyxK3kkOxeBPtsQuTf ZnMyMFxwYXIgSSBoYXZlIHBl rwLjevUuaWnbemM9gOX2CVVj KEqmZGKlGTJiuSEasj0ztHnd BZZiSO1zWYRwcfReDPvuhTmz MBphQEE4TBPgfCTkbQIraCMb ZSBieSByZXNpZGVudHMsIGZl sZkvp5Vvr6HgkNW7hD3bz1rc w2YqASGtzMK7RJ60urX7kH2o BLOvNH7eEKJlQD0fnXZfeOHw QIBtj61uwSidqzEqVNIzfcTd XHBsYWluXGYyXGZzMjhcbGFu ZzEwMzNcaGljaFxmMlxkYmNo EDVdYZygH6oeBlBfXxGqRUsu QMO4cJguriVhVGubn5OuA1Dk MjAwMFxhbnNpXGRlZmxhbmcx YTKyOPL8obDoDHEvYEyyTBAy FBcnZt9mxPHtvWddWjUbEBPs f1edjhVCEIsgVhBdR700VWGt SAgrb3sph8SnBZZrdARdl5Z9 KMWWeyahrJf1pMelQ35wn6S0 MtkxC9vtITAtONVdU5SbNE2p AMBsUww2MJR9CLH2YRJbKTKc H8McQN2iDLPboGSkBPa2t1lf fDmtAVBvNPN6q7cqLMworkN7 NY3muu2geVi9y4frmqUcGUOn NRJrnTMXJSLcG2HmvJiyWx5x lRm6lDwgCgesJWL1Wpy1JW1t em08ojd2hSliGAAalavkAuT9 JUjqGHEmbfhrNHt8SCwpZXCu xDU3BHEpdVHfB2PpLOIpYE7a tby6GMU6DNnuJLOdGsB7JQTq iWLfWHJdoMfaCJjdm803LLQ6 BfVqOD2kO7Cjg1J3eH8qeXDm CIFjhAIrNgWnXASbre5arGMl VMgrd1VeQ32mrFB5UTfyx7xk HR1dToI4dsHfSBjrz6svqU5f HvZ8JRqyJB6anh73WZKcYQW4 oz9hzPNuaRymfrDqzHTfNWax C5CyJANyl546HQDaJ3TzRILg v9D5unMtSsCyOXXlhHK0mjX4 CHArKHo5tXIwfaV0plTtqKRh Q6nchU1lBFTeKQ1inuefa1xw SKrxYNuzPOOlhHQ1zkY8VRBv nQTbX3VmyG9aJQJtRRqwYFOi gdo1HaKcAd0pcISjfZypQPff YmtwYWdlXHBnbmNvbnRccGdu ZGVjXHBsYWluXHBsYWluXGYw EAOwHqWwjPYeSCwli7ZygvXp zFjvDWCrIMm9uuBpiipjmSm0 xLZwcIvbRHQleKsdeR0sHlQc LaHxSTacQX2mEXYbN1vupCNx IJTiKMUnZ5zaNpZfdS5rkVvl MVxjZjJcZnMyMFxsdHJjaFxw YXIgSSBoYXZlIHBlcnNvbmFs iCcvuqZ7oIG5VDTaYTznMMJc ISGtnAWucw9beCuvLZBrEE6c IGFncmVlIHdpdGggYWxsIHN0 YXRlbWVudHMgbWFkZSBieSBy YDTsGGVzrBOtDTJhzEzvx9Gc q4YgfYT9kY1au7kyj3YrCPFp bRK7VS11flF2zE9hERKxVS8m OFGhAL3uwWCkuRImPJXie76f dGhpcyByZXBvcnQuXHBsYWlu XGYxXGZzMjBcbGFuZzEwMzNc aGljaFxmMVxkYmNoXGYxXGxv T8fvGwWsP4RmWHPrIzVxiTDb WGYsonxfNMCbp1OuDvDyl3ie FCqsq4ketWi6UAerjNIcgbli YIjxrhE9INZpQGkiFALjNORq MTRcbGFuZzEwMzNcaGljaFxm EVzvXgRbKWQbJUkxM6brGnUr H9NjNJVaPQSgyKJwE8gfISQ7 vC3et9tdi1IxaWCfFpRzy4jk bmFsIGNvbXBvbmVudCBwZXJm f6NdSCGfXOMjCGMOWf4DJVWt cZIkJ0f2cIFEWZ1rtOHsEGVr GHGaD0IlKxCQkaBpp7Y3PVTl wTRbOBWDPTCbzZXgJ8o7tFnd ZWnjUzo0OzAtyNjjwY6qNpXf AqOuJQlfKE7dXEUjE6cogSEt XCVvMUPjM4bmTpOmcX4llJez MVxjZjJcZnMyMFxsdHJjaFxw YXJ9fQ== Clinical Information (test code = [id number]) LEFT LOWER PELVIC PAINSUSPICION FOR ECTOPICDESIRES IUD REMOVAL Gross Description (test code = [id number]) z9uirJJqDRLbbJACBIL9YIPm WJ5loUmrcLq1eYunDRMqeqS2 oFMuCSkbq4zgXPU6e1efcrXO CtrkFEElSC2zLZlqOFAkDF2s ZmUwXGRlZmYxXHBhcGVydzEy PaMnYEDszLZckXR2QMSkCS2b oxukJKiqJQkpJWOcojI0XNVq mPTyO3QbOBLnJG7wpwasJMX5 JDGGVsmeXh5ohHJwnTzgRoVh ZmNoYXJzZXQwXGZuaWwgQXJp ZMp2cS7IBqyeUST0ZPRYIhzr JtkgpBwmh2LxlNJsGICeNOuu aWQgNTEwMDAgXFxkYiBPVlIg WvF6YOMzJsO6XkP9ISb7KKQT IGVeCdp1ZgE3WQI3FRe3AIDj GK8pPEdjbKRoHXznQmtyWRql E380OHrtTPFjM2VlU0AtAUax ZyBcXGlkIDUxMDAyIFxcZGIg X7CDLIAfWYi6LPvtQrJjKIv8 LHsyH9AHDJAiDKD9ZQFhWvt7 EtS7QXu0EUPOSo6dOLcqLYA7 ZFE6JQM0FCz3OTRyWHRjNhGc RDToFGPxONbejXRuTR6bwGdo EZThDF9WGSLoTVtlLMVtIrPi W3VHB5hPWH4uJUqtkOWbhTzf yhSoWVOceiZLEvccBVKkVR2A LOCeIQijECr6etZaAZNePwRq TIRtU84qv4MEm5XxGA6ROUl1 huEbofqgwM4zAZGdobSvl6Td MFxlcGljWHNhMzAgDQpTcGVj zQ6osdVFRMjwSHFiV0YiobNk DWgdGNDumt6jsSmeFUjcDiUy MZIoe6q5sLN3qDQynAO2oRGs eBuhFA3szXSwAEBFNS94mBXc aildGaWilPahdSsuplG4eEYq OQHgUKD5MgFgjmXpO31km1uo lZTtq4BmZSJryV7kcMChtMXz LXBpbmsgZGlsYXRlZCBzZWdt HH71ZY2qKFKztMBxuUM5QFJn VmEjtV9xpQZgGTZ4OxUaPHUi NYWanEAhanCoKV8rcSheSufq GW0zCDAiJVsiZBMdQA0buPJa LLS7pVUiGMNpn6Fij5UauVPu QSSqQ1JfWVm8EMxnSjMtLWDy PQBwKLKylS9aHGFgaK17OuYr D5MsvDEdzXcyk5VhwReoujfy MtOhBGWyUVsrXPZuyLP3NAJl zOIiOL6uy3t3vSUkCJWsKRJj MWFxjJ55wDKsMZHvd53oKPXm f8PqRVWWcxFmWQEkhZAoihEy zZKazAWsz8QeT0fndihamcuc RHExlWgnOXRwNKPkhk7au5w7 HWrbOD58fGPaJXJaBI2sTEAv YXXkyNUhdH2ulcAmanYblkPi kbNedSHfuWXjySE4ZAGvxI8g IITcETtsLR9BXKMglAQEITJ1 BR2aMZgzAHQrU4QfH7SdexE1 VWFnbwWZVrzsCyrulFxiv4Cq dCBcXHNnIFxcaWQgNTEwMDIg JRvoYiQMAcMwPkT1YOBdFlK0 LwP4XGb4PMTKCjZdAzAoGhHh XJJ0KPDcMAb2WQl8CBeTVvIq UVX4YaM9RNX7LMQ7UlP7LEln vNKpXCfvx9ZyNeYsAGTuJYor gxE3OZPgxdTry2CxAEXbSGQq S4zyWyNtNMYJJrochpLxMUAE RUNJTUVOIEJcZnMyMlxwYXIg DQpccGFyZCANClxwbGFpblxs dHJjaFxmczIyXGVwaWNOZXN0 WX6fRAHUOvqpgYDjCEYxfWgt YXzguN4tDEVbTaXxYHJhT7ep XtWwJN0OF9CwW9laSP4gSMLe cyByZWNlaXZlZCBmcmVzaCBs FMYvhBqeTEC2kJMaFMTcSSJo FELsMO19HTeMOEArusCsGCet VUggbnVtYmVyIGBgIGludHJh gPTuoeinEEBeGDZcP6KennCp k4RviHcaAlHqK3X6JPSxHXIx n07nhYO2qhXlLjOiQXLxkcjz KTQ5mIs1TBXmhHZvaFxrMSsa w2AayHivbV17TID3EAwyuHKf nPKcxfjkAECkFMGuX9HmDQXa frztOCHreaK0hAAts1mbyTWf a3RonZqeAOrthFUuzpXKVWe8 nOAtDnJxKFKgfXMbGB0cYLY0 itVqRVZkZjLziDZeWV9zyYpb LV4fCZUmGDOswZHrmvZgmXQz ZXRlciBhbmQgdGhlIHRvcCBj of6wihPpCRSvqAMke8ExCEIn Bt55RBljSY2rDEldKS2aKYHb VY2nVWgbwrDcpFWpWJYvn6Mo uLPik5IgyK0gMPa5FpWcF26b pT8czEQkW8BrVVScYCLlGTQk NFOfQV9fRS4sQGEgFAehJIPh SM5hcWRiMALkmKQbL2wmYVR6 ieP6iUKhTm91xG6hFI9oGOBa JJPkUBFvSNC9WM2cKWljg2Jt HY9vQJvqWZxlzYgciK4dbyRt sOMnZIJnASKqr0PqTaHMgEVe b4DfH2dgQF1nbTPfJq9vIAdn u7MtMXR1JT3azqZ6oY6xOF8o bHkuXHBhciANClxzYjBcZXBp T1yuEkGcUWsjxJQmJA1HEbCt bEXbSEOMiQkbtzY4KKDMNQYf USXJFIcxyTIvEJ3XEEDwOaQq DHCsL4cvEBLgRZ3XMONfvNXQ QSI5LK3uRLpoKYCzL9IgY2Bb zwS1w3whxSgse5MeaUWiMP7s aILnGI6YCRVfohAzHFk5 Disclaimer (test code = 3432036979) c1spaNNuOQUsw9buPNRuzWPi ZzEwMzNcZnRuYmpcdWMxIHtc toLhQSynr9BtI7UvUzGnVZsc bnNpXGRlZmxhbmcxMDMzXGZ0 fmVsILBeCMxmHPLpOKftOe0z gTCwwNrpCtKbTUEcn5loumSJ YYbwZkHnK419EAShWDipj2hm h8QlYZXvuJMaz4Q0JYQTdaor sHs6fUbqO17nz6X6MqnyS9uz TOBgBFGzL3WkMC7qFUOwVbk6 YFI1EEK9NZVaZYYvX1JkRB1k UCZcaSWfFAz0i0iuySriKERd NHY2c7aqNIfhkcAuTK6vkc9d xBu6v4jkndHzGPTnQMCdnDQJ VERlM1XluGfiQm4qqNp7rMva PvurHYB6Xun9ZN5bpg85jmx6 xOzrJPBrllfuTyU9FYcxPIHx iinbEMu4ZRnlNCGcvIP8FHCe zENeN4EoPAFeUT4fplo6TPD3 QWidFPHmGsF9WYVbkXTlRUJq qEqvPKsvo216KHR2XpOnQS1i G1Jtg0T4yL8eaZAaUVXhqIJr AfByRMIqnx9btLGhDSwjp9Tt DAK9ntG5dLVknCZrPXHkLA57 Darec7EkGvnor9FeT32uaQY3 JRexw3hbZH2sPzX3gwDiCBir u2exrJ1tYvQ2YWokNQ9cGT2i AQIklP0ajcvfNIPhDfFmzegw ZKZmiHhjcaMgGi8cvQbsBTG1 ZUmzE4vwxG7iEkX3WEksX8mk uU0jTAt6AGnifCE0GYUmxQ1b UQ0orlusm4siWSybBNnkWEDl bhQ8wnZ6OERwuJLqL8VypR5j UXQbOZ0ldjzkz8ndOIW8TBlv DMByZGQ9OyDoAGRjc4Nuxjq8 SdHgf0ZcbVXrUJkvQ52ou715 UYWrcwOwL0pfsUIkvhtzxTRe hkxhLFdfewQ5LDCacnWyx9Qo EUXlNLG0UMcxRIqonJDgGYXe kRxtc7ccL5WdsHEmQJVnQQdw XGYxXGZzMjBcbGFuZzEwMzNc aGljaFxmMVxkYmNoXGYxXGxv C9zaLfErT2BpIQSxYxXcySGn Y7dyWNasowUtWABfjeCbvLC3 ZIkwT0k5TUTdqxAwaXy4cvDh NbRwIWSmVWD2SVehhVFcIYQy v8MzeryfoHHvEt1oeSBiUIXu fD8dTWMnXEMlWVllFF8cvHk8 EKLYjWTajADcYsZMUFRrTW81 taWdICJLnhxts0X7QYysLWYj t0IxtYBuY0les3CxRYJte52i AK7zu3Q1p8bvGJZ3IC4xy1Kn ESHggVAanKPkIQJzj1Ptkrzo v3OfKOOrbmGge6HtRLHivrGe cNZpIYHsfkWyzu3rngTuWAHk CLYqH1YrqkvzwWzrxjLwNSQg pw5pqaEuUSK4OETFILHqSQAq w3GfpW0jvITLBNX1kDWvfy1h nnTSvHMpYBDuyo86JMYgNO2t R1veTDVkGABzsiEgyCQan7Mi MUAmfTE5lFWlCM9SAiYZl51g IGFuZCBEcnVnIEFkbWluaXN0 eqJ5qE0gIJnUDNWrMci+IFRo MEUTLDDpCB4qkyZxa8QjslKr xNgbKSBbqCRxe1SwxGVee0Ce rTqib0RruBYipEMiRZ5rOYMu clxwYXIgVVRNQiBMYWJvcmF0 a1EvMESjYVOrPGJ6gQxhblq2 VEQqyP9eITRfG7mrfvavMClm XGXav2RppK5lkWKZnDVux9Sn pJPqiKECaRCsBO7sriBoTHqB SLiFWAO4gjXaHWCnd6PkIOjq P6jnB56inAhmrBb1xGO1ZAS1 tJ5dVee+IFxwYXJccGFyIEFw jHQtfMIpRXFldIjknqZuI0Zv jxYhnR8crPVdugJlZO3lCN9y D3Y8jYRaDOKatvKlx3vhKVsg dmUgYmVlbiByZXZpZXdlZCBm m4ZkCMtxCTU5XDegpbZkmcIw dWRpbmcgSCZFLCBTcGVjaWFs DLI4AZxqslPicrAkZF0maQ6r aBrvuT7gxQKimIX7wbgfNVCe WLKcgIlcNBBgAA2uaRcxfI7l ZoEhDiSuNXwuCT5bUQFlV2gc xAOeCRBvDLKnS1wdSwRtgJ1h aFxmMVxjZjJcZnMyMFxwYXJc cGFyXHBsYWluXGYxXGZzMjBc bGFuZzEwMzNcaGljaFxmMVxk WwMlBGCkMXevY0dvMxYbY3Ta ZJLcHeFgvXYoU6nrYWnkFMX8 DUTxSG1svXAqMI96fNIgr7hl MKhayVgdhq8aF91bvDHoYBij hKyrILLkc56kh0EaJMWdskUz zw7hHAZlatX2wW3sNVJhpMrm JSLueHOoGIIxx7KlKGelrZEc emVkIGdsYXNzIHNsaWRlcyB0 byBhcnJpdmUgYXQgdGhlIGFi d4QqCMFeTIwzr1Raql1ojZPw ZRCrsjLWcNrqqKWflK9lH4Cl NZMhKDJmhj5nISUfiW8rIMvn g3UgezefADGaQLIiATBnohJg li4lIJYpzYIICF9STKymlECa y5VpboOqY4rMRWS1EGQdYhJw UicuDROeiWLalXPbSMEdlp99 OLJhcO0hjBgeQUJklN0jmL3v vOpnmA5vXsBpXsYrNOgnNF6p NTGyM7xsoOPpYRVyKLNjZ3aj NmFkdT0keLaaBAxdHxPxMuFz ZUtiEZE6cY== Embedded Images (test code = 1525881109) [facility]. METABOLIC PANEL (30177)2023-05-15 04:27:58* Test Item Value Reference Range Interpretation Comme nts NA (test code = 5150238797) 140 mmol/L 135-145 K (test code = 7214273028) 3.3 mmol/L 3.5-5.0 L CL (test code = 9559154827) 105 mmol/L 98-108 CO2 TOTAL (test code = 6934741676) 21 mmol/L 23-31 L AGAP (test code = 4512964911) 14 2-16 BUN (test code = 4828797816) 10 mg/dL 7-23 GLUCOSE (test code = 6913573642) 95 mg/dL 70-110 CREATININE (test code = 8691348506) 0.58 mg/dL 0.50-1.04 TOTAL BILI (test code = 7714834778) 0.4 mg/dL 0.1-1.1 CALCIUM (test code = 8057440233) 9.5 mg/dL 8.6-10.6 T PROTEIN (test code = 3305595848) 8.0 g/dL 6.3-8.2 ALBUMIN (test code = 4773295519) 4.9 g/dL 3.5-5.0 ALK PHOS (test code = 1379569254) 48 U/L 34-122 ALTv (test code = 1742-6) 21 U/L 5-35 AST(SGOT) (test code = 0891747197) 27 U/L 13-40 eGFR (test code = 3406856326) 128.8 mL/min/1.73m2 ENE (test code = ENE) [...] imaging tests). Lab Interpretation (test code = 39389-5) Abnormal [facility] WITH [id number] 04:17:55* Test Item Value Reference Range Interpretation Comme nts WBC (test code = 6690-2) 8.99 See_Comment [Automated [employer]] The system which generated this result transmitted reference range: 4.30 - 11.10 10*3/?L. The reference range was not used to interpret this result as normal/abnormal. RBC (test code = 789-8) 4.48 See_Comment [Automated [employer]] The system which generated this result transmitted [...] 33.5 g/dL 31.6-35.1 RDW-SD (test code = 46852-1) 43.0 fL 39.0-49.9 RDW-CV (test code = 788-0) 12.6 % 12.0-15.5 PLT (test code = 777-3) 375 See_Comment H [Automated messa ge] The system which generated this result transmitted reference range: 166 - 358 10*3/?L. The reference range was not used to interpret this result as normal/abnormal. MPV (test code = 42096-4) 10.3 fL 9.5-12.9 NRBC/100 WBC (test code = 6137665189) 0.0 See_Comment [Automated me ssage] The system which generated this result transmitted reference range: 0.0 - 10.0 /100 WBCs. The reference range was not used to interpret this result as normal/abnormal. NRBC x10^3 (test code = 9393383851) See_Comment [Automated messa ge] The system which generated this result transmitted reference range: 10*3/?L. The reference range was not used to interpret this result as normal/abnormal. GRAN MAT (NEUT) % (test code = 770-8) 68.1 % IMM GRAN % (test code = 1359142143) 0.20 % LYMPH % (test code = 736-9) 24.7 % MONO % (test code = 5905-5) 6.6 % EOS % (test code = 713-8) 0.3 % BASO % (test code = 706-2) 0.1 % GRAN MAT x10^3(ANC) (test code = 1499041859) 6.12 10*3/uL 1.88-7.09 IMM GRAN x10^3 (test code = 0573680320) 0.00-0.06 LYMPH x10^3 (test code = 731-0) 2.22 10*3/uL 1.32-3.29 MONO x10^3 (test code = 742-7) 0.59 10*3/uL 0.33-0.92 EOS x10^3 (test code = 711-2) 0.03 10*3/uL 0.03-0.39 BASO x10^3 (test code = 704-7) 0.01-0.07 Lab Interpretation (test code = 67067-4) Abnormal [facility] with Differential - On Postoperative Day # [id number] 10:46:57* Test Item Value Reference Range Interpretation [...] 33.5 g/dL 31.6-35.1 RDW-SD (test code = 09737-4) 40.9 fL 39.0-49.9 RDW-CV (test code = 788-0) 12.5 % 12.0-15.5 PLT (test code = 777-3) 330 See_Comment [Automated messa ge] The system which generated this result transmitted reference range: 166 - 358 10*3/?L. The reference range was not used to interpret this result as normal/abnormal. MPV (test code = 52455-3) 10.2 fL 9.5-12.9 NRBC/100 WBC (test code = 2380782631) 0.0 See_Comment [Automated [employer] ss[employer]] The system which generated this result transmitted reference range: 0.0 - 10.0 /100 WBCs. The reference range was not used to interpret this result as normal/abnormal. NRBC x10^3 (test code = 5100450695) See_Comment [Automated messa ge] The system which generated this result transmitted reference range: 10*3/?L. The reference range was not used to interpret this result as normal/abnormal. GRAN MAT (NEUT) % (test code = 770-8) 88.5 % IMM GRAN % (test code = 0928512456) 0.30 % LYMPH % (test code = 736-9) 9.0 % MONO % (test code = 5905-5) 2.0 % EOS % (test code = 713-8) 0.0 % BASO % (test code = 706-2) 0.2 % GRAN MAT x10^3(ANC) (test code = 9524118652) 5.80 10*3/uL 1.88-7.09 IMM GRAN x10^3 (test code = 9600035361) 0.00-0.06 LYMPH x10^3 (test code = 731-0) 0.59 10*3/uL 1.32-3.29 L MONO x10^3 (test code = 742-7) 0.13 10*3/uL 0.33-0.92 L EOS x10^3 (test code = 711-2) 0.03-0.39 L BASO x10^3 (test code = 704-7) 0.01-0.07 Lab Interpretation (test code = 78662-4) Abnormal [facility] with Differential - On Postoperative Day # [id number] 10:46:57* Test Item Value Reference Range Interpretation Comme nts WBC (test code = 6690-2) 6.55 See_Comment [Automated [employer]] The system which generated this result transmitted reference range: 4.30 - 11.10 10*3/?L. The reference range was not used to interpret this result as normal/abnormal. RBC (test code = 789-8) 4.14 See_Comment [Automated [employer]] The system which generated this result [...] 33.5 g/dL 31.6-35.1 RDW-SD (test code = 99499-7) 40.9 fL 39.0-49.9 RDW-CV (test code = 788-0) 12.5 % 12.0-15.5 PLT (test code = 777-3) 330 See_Comment [Automated [employer]] The system which generated this result transmitted reference range: 166 - 358 10*3/?L. The reference range was not used to interpret this result as normal/abnormal. MPV (test code = 09243-0) 10.2 fL 9.5-12.9 NRBC/100 WBC (test code = 9453042364) 0.0 See_Comment [Automated [employer] ss[employer]] The system which generated this result transmitted reference range: 0.0 - 10.0 /100 WBCs. The reference range was not used to interpret this result as normal/abnormal. NRBC x10^3 (test code = 3711874380) See_Comment [Automated [employer]] The system which generated this result transmitted reference range: 10*3/?L. The reference range was not used to interpret this result as normal/abnormal. GRAN MAT (NEUT) % (test code = 770-8) 88.5 % IMM GRAN % (test code = 5370915065) 0.30 % LYMPH % (test code = 736-9) 9.0 % MONO % (test code = 5905-5) 2.0 % EOS % (test code = 713-8) 0.0 % BASO % (test code = 706-2) 0.2 % GRAN MAT x10^3(ANC) (test code = 1988761550) 5.80 10*3/uL 1.88-7.09 IMM GRAN x10^3 (test code = 1164336504) 0.00-0.06 LYMPH x10^3 (test code = 731-0) 0.59 10*3/uL 1.32-3.29 L MONO x10^3 (test code = 742-7) 0.13 10*3/uL 0.33-0.92 L EOS x10^3 (test code = 711-2) 0.03-0.39 L BASO x10^3 (test code = 704-7) 0.01-0.07 Lab Interpretation (test code = 84349-4) Abnormal [facility] with Differential - On Postoperative Day # 28363-56-40 10:46:57* Test Item Value Reference Range Interpretation [...] 33.5 g/dL 31.6-35.1 RDW-SD (test code = 86757-4) 40.9 fL 39.0-49.9 RDW-CV (test code = 788-0) 12.5 % 12.0-15.5 PLT (test code = 777-3) 330 See_Comment [Automated messa ge] The system which generated this result transmitted reference range: 166 - 358 10*3/?L. The reference range was not used to interpret this result as normal/abnormal. MPV (test code = 32358-0) 10.2 fL 9.5-12.9 NRBC/100 WBC (test code = 4915825149) 0.0 See_Comment [Automated [employer]] The system which generated this result transmitted reference range: 0.0 - 10.0 /100 WBCs. The reference range was not used to interpret this result as normal/abnormal. NRBC x10^3 (test code = 0101979271) See_Comment [Automated messa ge] The system which generated this result transmitted reference range: 10*3/?L. The reference range was not used to interpret this result as normal/abnormal. GRAN MAT (NEUT) % (test code = 770-8) 88.5 % IMM GRAN % (test code = 5868417906) 0.30 % LYMPH % (test code = 736-9) 9.0 % MONO % (test code = 5905-5) 2.0 % EOS % (test code = 713-8) 0.0 % BASO % (test code = 706-2) 0.2 % GRAN MAT x10^3(ANC) (test code = 5103604279) 5.80 10*3/uL 1.88-7.09 IMM GRAN x10^3 (test code = 0050157645) 0.00-0.06 LYMPH x10^3 (test code = 731-0) 0.59 10*3/uL 1.32-3.29 L MONO x10^3 (test code = 742-7) 0.13 10*3/uL 0.33-0.92 L EOS x10^3 (test code = 711-2) 0.03-0.39 L BASO x10^3 (test code = 704-7) 0.01-0.07 Lab Interpretation (test code = 11658-4) Abnormal [facility] [id number] 20:30:00* Test Item Value Reference Range Interpretation Comme nts POCT PREG (test code = 1605) Positive On board controls acceptable with C Line (test code = 3574) Yes POCT PREG LOT # (test code = 3575) POCT PREG TEST DATE ( test code = 3576) [facility] [id number] 20:30:00* Test Item Value Reference Range Interpretation Comme nts POCT PREG (test code = 1605) Positive On board controls acceptable with C Line (test code = 3574) Yes POCT PREG LOT # (test code = 3575) POCT PREG TEST DATE ( test code = 3576) [facility] URINALYSIS W/O SPECIFIC [id number] 20:29:00* Test Item Value Reference Range Interpretation [...] = 3257) 250 Negative - Negati ve [facility] URINALYSIS W/O SPECIFIC [id number] 20:29:00* Test Item Value Reference Range Interpretation [...] = 3257) 250 Negative - Negati ve [facility] [id number] 13:30:00* Test Item Value Reference Range Interpretation Comme nts POCT PREG (test code = 1605) Negative On board controls acceptable with C Line (test code = 3574) Yes POCT PREG LOT # (test code = 3575) [id number] POCT PREG TEST DATE ( test code = 3576) 06/29/2024 [facility] [id number] 13:30:00* Test Item Value Reference Range Interpretation Comme nts POCT PREG (test code = 1605) Negative On board controls acceptable with C Line (test code = 3574) Yes POCT PREG LOT # (test code = 3575) [id number] POCT PREG TEST DATE ( test code = 3576) 06/29/2024 [facility] [id number] 16:12:00* Test Item Value Reference Range Interpretation Comme nts POCT PREG (test code = 1605) Negative On board controls acceptable with C Line (test code = 3574) Yes POCT PREG LOT # (test code = 3575) POCT PREG TEST DATE ( test code = 3576) [facility] [id number] 16:12:00* Test Item Value Reference Range Interpretation Comme nts POCT PREG (test code = 1605) Negative On board controls acceptable with C Line (test code = 3574) Yes POCT PREG LOT # (test code = 3575) POCT PREG TEST DATE ( test code = 3576) [facility] [id number] 15:12:00* Test Item Value Reference Range Interpretation Comme nts POCT PREG (test code = 1605) Negative On board controls acceptable with C Line (test code = 3574) Yes POCT PREG LOT # (test code = 3575) POCT PREG TEST DATE ( test code = 3576) [facility] [id number] 15:12:00* Test Item Value Reference Range Interpretation Comme nts POCT PREG (test code = 1605) Negative On board controls acceptable with C Line (test code = 3574) Yes POCT PREG LOT # (test code = 3575) POCT PREG TEST DATE ( test code = 3576) [facility] with [id number] 10:05:29* Test Item Value Reference Range Interpretation [...] g/dL 31.6-35.1 L RDW-SD (test code = 39630-2) 47.8 fL 39-49.9 RDW-CV (test code = 788-0) 14.9 % 12-15.5 PLT (test code = 777-3) See_Comment [Automated message] The system which generated this result transmitted reference range: 166 - 358 10*3/?L. The reference range was not used to interpret this result as normal/abnormal. MPV (test code = 49595-8) 11.0 fL 9.5-12.9 NRBC/100 WBC (test code = 2364082125) See_Comment [Automated message] The system which generated this result transmitted reference range: 0.0 - 10.0 /100 WBCs. The reference range was not used to interpret this result as normal/abnormal. NRBC x10^3 (test code = 4184049217) See_Comment [Automated message] The system which generated this result transmitted reference range: 10*3/?L. The reference range was not used to interpret this result as normal/abnormal. GRAN MAT (NEUT) % (test code = 770-8) 80.2 % IMM GRAN % (test code = 4319389185) 0.70 % LYMPH % (test code = 736-9) 12.2 % MONO % (test code = 5905-5) 5.7 % EOS % (test code = 713-8) 0.9 % BASO % (test code = 706-2) 0.3 % GRAN MAT x10^3(ANC) (test code = 7569185508) 11.46 10*3/uL 1.88-7.09 H IMM GRAN x10^3 (test code = 9207506468) 0.10 10*3/uL 0-0.06 H LYMPH x10^3 (test code = 731-0) 1.75 10*3/uL 1.32-3.29 MONO x10^3 (test code = 742-7) 0.81 10*3/uL 0.33-0.92 EOS x10^3 (test code = 711-2) 0.13 10*3/uL 0.03-0.39 BASO x10^3 (test code = 704-7) 0.04 10*3/uL 0.01-0.07 Lab Interpretation (test code = 59093-0) [facility] [id number] 23:51:54* Test Item Value Reference Range Interpretation Comme nts RHIG CANDIDATE? (test code = 5055) No- see comment Patient is not a candidate for RhIg- Patient is Rh Positive.Performed at [facility] Laboratory Services - [facility] Blood [address] [place] [address] Free: [phone] No. [id number] [facility]Type and Screen - ONCE [id number] 13:33:07* Test Item Value Reference Range Interpretation Comme nts ABO & RH (test code = 20) O Positive Performed at [facility] Laboratory Services - [facility] Blood [place] [address]Toll Free: [phone] No. [id number] IAT (test code = 1185) Negative Performed at [facility] Laboratory Services - [facility] Blood [address] [place], [place] [address]Toll Free: [phone] No. [id number] [facility] W/O SPECIFIC [id number] 15:03:00* Test Item Value Reference Range Interpretation [...] = 3257) n/a Negative - Negati ve [facility] W/O SPECIFIC [id number] 15:57:00* Test Item Value Reference Range Interpretation [...] = 3257) n/a Negative - Negati ve [facility] W/O SPECIFIC [id number] 16:18:00* Test Item Value Reference Range Interpretation [...] = 3257) n/a Negative - Negati ve [facility] History and Physical Notes Date/Time Note Provider [...] Lower 09/13/2017 Surgeon: Bereket Castelan MD; [place] [facility] DILATION OF CERVICAL CANAL 08/30/2017 Allergies: No [...] abuse or violence. Yes one inside cat. Anabaptism: Jehovah'S Witness Lives with mother. Works in [employer] health. Review of Systems: A 14 point [...] othopnea, claudication, edema, coronary artery disease/history of DE Respiratory: Cough, sputum production, hemoptysis, wheezing, shortness [...] consent obtained. Mily Delgadillo M.D. 02/03/2023 08:49 [facility]
--- NOTE | 2024-08-02 20:01 | EDPHYS ---
Physician Documentation [facility] Name: Mckenzie Wang Age: 24 yrs Sex: Female : 2000 Arrival Date: 08/02/2024 Time: 19:49 Bed 9 Private MD: ED Physician Gio Brandt HPI: 08/02 19:55 This 24 yrs old Female presents to ER via Unassigned with complaints of Insect Bite. cp 19:55 Patient returns to ED in custody of law enforcement and reports increased pain to left cp buttock. 19:55 Associated signs and symptoms: Pertinent negatives: discharge, drainage, fever. cp APPLICATION SUPPORT LEAD: 20:18 LMP 07/14/2024, unknown kj2 Historical: - Allergies: 20:12 none; kj2 - Home Meds: 20:12 Abilify oral [Active]; kj2 - PMHx: 20:12 Bipolar disorder; kj2 - Immunization history:: Adult Immunizations unknown. - Infectious Disease History:: Denies. - Social history:: Smoking status: Patient denies any tobacco usage or history of. - Family history:: not pertinent. ROS: 19:55 Constitutional: Negative for body aches, chills, fever, cp 19:55 Skin: Positive for cellulitis, of the left buttock, cp 19:55 All other systems are negative, Exam: 19:57 Constitutional: The patient appears in no acute distress, alert, awake, non-toxic, well cp developed, well nourished, uncomfortable, 19:57 Skin: cellulitis, that is mild, well demarcated, on the left buttock, cp Vital Signs: 20:02 BP 108 / 53; Pulse 70; Resp 18; Pulse Ox 100% on R/A; Weight 52.16 kg; Height 5 ft. 1 af3 in. ; 20:20 BP 110 / 58; Pulse 70; Resp 18; Pulse Ox 100% on R/A; kj2 20:02 Body Mass Index 21.73 (52.16 kg, 154.94 cm) af3 MDM: 19:55 Medical Screening Exam initiated cp 20:01 Data reviewed: vital signs, nurses notes, and as a result, I will discharge patient. cp 20:01 Differential diagnosis: abscess, cellulitis, insect bite. I considered the following cp discharge prescriptions or medication management in the emergency department Medications were administered in the Emergency Department. See MAR. Counseling: I had a detailed discussion with the patient and/or guardian regarding the historical points, exam findings, and any diagnostic results supporting the discharge/admit diagnosis, to return to the emergency department if symptoms worsen or persist or if there are any questions or concerns that arise at home. Administered Medications: 20:13 Drug: Ketorolac IM 30 mg IM once Route: IM; Site: left deltoid; kj2 20:21 Follow up: Response: No adverse reaction kj2 20:14 Drug: Rocephin (cefTRIAXone) IM 1 grams IM once Route: IM; Site: left vastus lateralis; kj2 20:21 Follow up: Response: No adverse reaction kj2 20:14 Drug: Trimethoprim-Sulfamethoxazole PO (160 mg-800 mg (DS) 1 tablet PO once Route: PO; kj2 20:21 Follow up: Response: No adverse reaction kj2 Disposition: 08/03 08:42 Chart complete. cp Disposition Summary: 08/02/24 20:01 Discharge Ordered Notes: Location: Home cp Problem: an ongoing problem cp Symptoms: have improved cp Condition: Stable cp Diagnosis - Cellulitis of buttock - left cp Followup: cp - With: Private Physician - When: 2 - 3 days - Reason: Worsening of condition Discharge Instructions: - Discharge Summary Sheet cp - Cellulitis, Adult cp Forms: - Medication Reconciliation Form cp - Antibiotic Education cp - Prescription Opioid Use cp - Patient Portal Instructions cp - Leadership Thank You Letter cp Prescriptions: - Ibuprofen 600 mg Oral Tablet - take 1 tablet ORAL route every 6 hours As needed take with food; 30 tablet; cp Refills: 0, Product Selection Permitted - Bactrim DS 800-160 mg Oral Tablet - take 1 tablet ORAL route every 12 hours for 10 days; 20 tablet; Refills: 0, cp Product Selection Permitted Addendum: 08/08/2024 07:24 Co-signature as Attending Physician, Gio Brandt MD I agree with the assessment and c tolliver plan of care. Signatures: Gio Brandt MD MD cha Page, Corey, PA PA cp Joanna Franz RN RN kj2 Corrections: (The following items were deleted from the chart) 08/02 20:05 19:55 Patient returns to ED in custody of law enforcement and reports increased pain to cp right buttock. cp
[2024-08-02] MEDS ORDERED: CEFTRIAXONE 1000 MG/VIAL ONE (20:06)
[2024-08-02] MEDS ORDERED: KETOROLAC 30 MG/ML INJ ONE (20:07)
[2024-08-02] MEDS ORDERED: LIDOCAINE 1% MPF 2 ML AMPULE ONE (20:07)
[2024-08-02] MEDS ORDERED: SMZ./TMP. 800/160 MG TABLET ONE (20:07)
--- NOTE | 2024-08-02 20:36 | ER ---
Nurse's Notes [facility] Name: Mckenzie Wang Age: 24 yrs Sex: Female : 2000 Arrival Date: 08/02/2024 Time: 19:49 Bed 9 Private MD: Diagnosis: Cellulitis of buttock-left Presentation: 08/02 20:00 Chief complaint: EMS states: spider bite. Coronavirus screen: Client denies travel out [facility] [place] in the last 14 days. Ebola Screen: No symptoms or risks identified at this time. Initial Sepsis Screen: Does the patient meet any 2 criteria? No. Patient's initial sepsis screen is negative. Does the patient have a suspected source of infection? No. Patient's initial sepsis screen is negative. Risk Assessment: Do you want to hurt yourself or someone else? Patient reports no desire to harm self or others. Onset of symptoms was August 02, 2024. 20:00 Method Of Arrival: EMS: [facility] 20:00 Acuity: ROSA 3 kj2 Triage Assessment: 20:00 Bite description: bite sustained to left side of buttocks by a spider. General: Appears kj2 in no apparent distress. comfortable, Behavior is calm, cooperative. Pain: Complains of pain in left buttocks Pain currently is 8 out of 10 on a pain scale. Neuro: Level of Consciousness is awake, alert, obeys commands, Oriented to person, place, time, situation. Cardiovascular: Respiratory: Airway is patent Respiratory effort is even, unlabored. GI: No signs and/or symptoms were reported involving the gastrointestinal system. : No signs and/or symptoms were reported regarding the genitourinary system. 20:00 Bite description:. Bite description: patient reports a spider. Derm: redness to left kj2 side of buttocks. 20:18 Bite description: animal information: vaccination(s) is not applicable. 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 - Infectious Disease History:: Denies. - Social history:: Smoking status: Patient denies any tobacco usage or history of. - Family history:: not pertinent. Screenin:00 [facility] ED Fall Risk Assessment (Adult) History of falling in the last 3 months, kj2 including since admission No falls in past 3 months (0 pts) Confusion or Disorientation No (0 pts) Intoxicated or Sedated No (0 pts) Impaired Gait No (0 pts) Mobility Assist Device Used No (0 pt) Altered Elimination No (0 pt) Score/Fall Risk Level 0 - 2 = Low Risk Maintained a safe environment, Hourly rounding (assess needs \T\ fall precautionary measures) done. Abuse screen: Denies threats or abuse. Denies injuries from another. Nutritional screening: No deficits noted. Tuberculosis screening: No symptoms or risk factors identified. Assessment: 20:14 General: see triage assessment. kj2 20:19 Derm: Skin is intact, Skin is red. kj2 Vital Signs: 20:02 BP 108 / 53; Pulse 70; Resp 18; Pulse Ox 100% on R/A; Weight 52.16 kg; Height 5 ft. 1 af3 in. ; 20:20 BP 110 / 58; Pulse 70; Resp 18; Pulse Ox 100% on R/A; kj2 20:02 Body Mass Index 21.73 (52.16 kg, 154.94 cm) af3 ED Course: 19:49 Patient arrived in ED. jj6 19:54 Gio Molina PA is PHCP. cp 19:55 Gio Brandt MD is Attending Physician. cp 20:00 Patient has correct armband on for positive identification. Bed in low position. Call kj2 light in reach. Provided Education on: call light. 20:00 Arm band placed on Patient placed. kj2 20:11 Joanna Franz, RN is Primary Nurse. kj2 20:12 Triage completed. kj2 20:19 No provider procedures requiring assistance completed. Patient did not have IV access kj2 during this emergency room visit. Administered Medications: 20:13 Drug: Ketorolac IM 30 mg IM once Route: IM; Site: left deltoid; kj2 20:21 Follow up: Response: No adverse reaction kj2 20:14 Drug: Rocephin (cefTRIAXone) IM 1 grams IM once Route: IM; Site: left vastus lateralis; kj2 20:21 Follow up: Response: No adverse reaction kj2 20:14 Drug: Trimethoprim-Sulfamethoxazole PO (160 mg-800 mg (DS) 1 tablet PO once Route: PO; kj2 20:21 Follow up: Response: No adverse reaction kj2 Medication: 20:18 VIS not applicable for this client. kj2 Outcome: 20:01 Discharge ordered by MD. aguilera 20:19 Discharged to kj2 20:19 Condition: stable 20:19 Discharge instructions given to patient, Instructed on discharge instructions, follow up and referral plans. Demonstrated understanding of instructions, follow-up care, 20:35 Patient left the ED. kj2 Signatures: Gio Molina PA PA cp Jeffries, Jennifer jj6 Joanna Franz RN RN kj2 Yamel Gold3
[2024-08-03 03:15] VITALS: BP 110/58; O2SAT 100
== END 2024-08-02 20:35 | disposition home or self-care (01) ==
LOC: ER 19:49
DX: L03.317 Cellulitis of buttock (principal)
CPT/HCPCS: 96372; 99284; J0696

== ENCOUNTER 2024-09-16 19:40 | Emergency (ER) | payer SELFPAY ==
--- OUTSIDE RECORDS SUMMARY | 2024-09-16 19:47 | XMS REPORT | Continuity of Care Document ---
Author Name Unknown Address [address] [place] [address] [facility] thconnect Address [address] [facility] [address] [place] [address] Care Team Providers Care [employer] Name Role Phone Marley Clement Primary Care Physician + [phone] Orin Sheehan MA Attending Clinician UnavailALYSON Carvajal Attending Clinician UnavailALYSON Carvajal Attending Clinician UnavailAlyson Carvajal DO Attending Clinician [phone] Doctor Unassigned, [place] Attending Clinician U Tristan Lentz DO Attending Clinician [phone] TRISTAN TRONCOSO Attending Clinician Unavailable TRISTAN TRONCOSO Attending Clinician Unavailable CAROLYNN ESPARZA Attending Clinician Unavailable CAROLYNN ESAPRZA Attending Clinician Unavailable DONALD MCGRATH Attending Clinician Unavailable NEMO PRADO Attending Clinician UnavailNEMO Harris Attending Clinician UnavailBrianne Browne PA-C Attending Clinician [phone], [facility] Attending Clinician Unavailable MARLEY VALENCIA Attending Clinician Unavailable KALINA HARO Attending Clinician KALINA Mensah Attending Clinician Jatidner marcum Doctor Unassigned, [place] Attending Clinician U KENNY Stahl Attending Clinician Unavailable Kenny Suresh Attending Clinician [phone] MILY DELGADILLO Attending Clinician Unavailable Hong MCGUIRE, Razia Attending Clinician Mily Delgadillo MD Attending Clinician [phone] BRIANNE BRITTON Attending Clinician Unavailable Marley Clement Attending Clinician [phone] Unknown, Attending Attending Clinician Unavailab Nell Meraz MA Attending Clinician UnavailLivan Irizarry CRNA Attending Clinician [phone] Luis Levin MD Attending Clinician + [phone] Pob, [facility] Main Attending Clinician Unavailmason e Only, Ad[facility] Test Attending Clinician Unavailable GIDEON ROME Attending Clinician Unavailable Wild CLINICAL SPECIALIST, Gideon Attending Clinician [phone] Ebrafilomena CLINICAL SPECIALIST, Jerome Attending Clinician [phone], [facility] Us Room Attending Clinician Unavaila Lesly Norton MD Attending Clinician [phone] LESLY SHIPMAN Attending Clinician UnavailCassy Pacheco MD Attending Clinician [phone] Ultrasound, [facility] Attending Clinician Unavaila Gio Catherine DO Attending Clinician [phone] Avis Roberts S Attending Clinician [phone] Ibflaquito CLINICAL SPECIALIST, Charlene F Attending Clinician [phone] CASSY RUTHERFORD Admitting Clinician Unavailable ALYSON MICHEL Admitting Clinician Unavailab KALINA Culver Admitting Clinician CAROLYNN You Admitting Clinician Unavailable MILY DELGADILLO Admitting Clinician Unavailable Mily Delgadillo MD Admitting Clinician [phone] MARLEY VALENCIA Admitting Clinician Unavailable Carolynn Esparza MD Admitting Clinician [phone] Cassy Rutherford MD Admitting Clinician [phone] Payers Payer Name Policy Type Policy Number Effective Date Expirati on Date Source [employer]ICA[employer] [id number] 2021 00:00:00 Problems Condition Name Condition Details Condition Category Status Onset Date Resolution Date Last Treatment Date Treating Clinician Comments Source Upper abdominal pain Upper abdominal pain Disease Active 7-20 00:00: 00 [facility] Gallstones Gallstones Disease Active 7-15 00:00: 00 [facility] Well woman exam with routine gynecologi anna exam Well woman exam with routine gynecologi anna exam Disease Active 2021-07 0-04 00:00: 00 [facility] Nausea and vomiting during prior to 22 weeks gestation Nausea and vomiting during prior to 22 weeks gestation Disease Active 3-30 00:00: 00 [facility] No known active problems No known active problems Disease [facility] Pelvic pain in patient at less than 20 weeks gestation Pelvic pain in patient at less than 20 weeks gestation Disease Resolve d 2022-07 0-27 00:00: 00 2023-05-23 00:00:00 2023-05-23 13:16:43 [facility] Pelvic cramping in antepartum period Pelvic cramping in antepartum period Disease Resolve d 2022-07 0-24 00:00: 00 2023-05-23 00:00:00 2023-05-23 13:16:42 [facility] Vaginal bleeding affecting early Vaginal bleeding affecting early Disease Resolve d 2022-07 0-24 00:00: 00 2023-05-23 00:00:00 2023-05-23 13:16:46 [facility] Presence of intrauteri ne contracept magda device (IUD) Presence of intrauteri ne contracept magda device (IUD) Disease Resolve d 2021-07 1-23 00:00: 00 2023-05-23 00:00:00 2023-05-23 13:16:40 [facility] Vaginal discharge Vaginal discharge Disease Resolve d 3-03 00:00: 00 2023-05-10 00:00:00 2023-05-10 15:16:58 [facility] Rash and other nonspecifi c skin eruption Rash and other nonspecifi c skin eruption Disease Resolve d 2023-0 3-03 00:00: 00 2023-05-10 00:00:00 2023-05-10 15:17:04 [facility] BMI 28.0-28.9, adult BMI 28.0-28.9, adult Disease Resolve d 2022-0 3-03 00:00: 00 2023-05-10 00:00:00 2023-05-10 15:17:02 [facility] 39 weeks gestation of 39 weeks gestation of Disease Resolve d 2021-1 0-04 00:00: 00 2022-05-12 00:00:00 2022-05-12 14:33:04 [facility] Liveborn , of victor , born in hospital by vaginal delivery Liveborn infant, of victor , born in hospital by vaginal delivery Disease Resolve d 1 0-04 00:00: 00 2022-05-12 00:00:00 2022-05-12 14:33:08 [facility] Gastroesop hageal reflux disease, unspecifie d whether esophagiti s present Gastroesop hageal reflux disease, unspecifie d whether esophagiti s present Disease Resolve d 2021-0 8-25 00:00: 00 2022-05-12 00:00:00 2022-05-12 14:33:10 [facility] Encounter for tubal ligation counseling Encounter for tubal ligation counseling Disease Resolve d 2021-0 7-19 00:00: 00 2022-05-12 00:00:00 2022-05-12 14:33:12 [facility] Nausea and vomiting during prior to 22 weeks gestation Nausea and vomiting during prior to 22 weeks gestation Disease Resolve d 2021-0 3-30 00:00: 00 2022-05-12 00:00:00 2022-05-12 14:33:13 [facility] High risk , antepartum High risk , antepartum Disease Resolve d 2021-0 3-30 00:00: 00 2022-05-12 00:00:00 2022-05-12 14:33:15 [facility] Tinea corporis Tinea corporis Disease Resolve d 2018-0 4-11 00:00: 00 2021-10-14 00:00:00 2021-10-14 15:53:21 [facility] Pyelonephr itis Pyelonephr itis Disease Resolve d 2018-0 2-20 00:00: 00 2021-10-14 00:00:00 2021-10-14 15:53:09 [facility] Excessive bleeding Excessive bleeding Disease Resolve d 2017-0 2-26 00:00: 00 2021-10-14 00:00:00 2021-10-14 15:53:08 [facility] 40 weeks gestation of 40 weeks gestation of Disease Resolve d 2017-0 2-13 00:00: 00 2021-10-14 00:00:00 2021-10-14 15:53:17 [facility] Normal labor and delivery Normal labor and delivery Disease Resolve d 0 2-13 00:00: 00 2021-10-14 00:00:00 2021-10-14 15:53:18 [facility] Supervisio n of high-risk of young primigravi da Supervisio n of high-risk of young primigravi da Disease Resolve d 2016-07 0-09 00:00: 00 2021-10-14 00:00:00 2021-10-14 15:53:12 [facility] High risk teen in second trimester High risk teen in second trimester Disease Resolve d 2016-07 009 00:00: 00 2021-10-14 00:00:00 2021-10-14 15:53:13 [facility] care insufficie nt, second trimester care insufficie nt, second trimester Disease Resolve d 2016-07 0-09 00:00: 00 2021-10-14 00:00:00 2021-10-14 15:53:17 [facility] Allergies, Adverse Reactions, Alerts Allergy Name Allergy Type Status Severity Reaction(s) Onset Date Inactive Date Treating Clinician Comments Source NO KNOWN ALLERGIE S Drug Class Active [facility] Social History Social Habit Start Date Stop Date Quantity Comments Source ASSERTION 2021-08-04 00:00:00 [facility] Alcohol intake 2023-05-23 00:00:00 2023-05-23 00:00:00 Ex-drinker (finding) [facility] History of Social function 2023-03-01 00:00:00 2023-03-01 00:00:00 [facility] Tobacco Comment 2023-02-22 00:00:00 2023-02-22 00:00:00 vapes [facility] Exposure to SARS-CoV-2 (event) 2022-11-05 00:00:00 2022-11-15 12:57:00 Not sure [facility] Alcoholic beverage intake 2021-10-14 00:00:00 2021-10-14 00:00:00 Ex-drinker (finding) [facility] Tobacco use and exposure 2017-04-25 00:00:00 2017-04-25 00:00:00 Smokeless tobacco non-user [facility] Sex assigned at 2000 00:00:00 2000 00:00:00 [facility] Smoking Status Start Date Stop Date Source Never smoked tobacco [facility] Medications Ordered Medication Name Filled Medication Name Start Date Stop Date Current Medication? Ordering Clinician Indication Dosage Frequency Signature (SIG) Comments Components Source ARIPiprazol e (ABILIFY) 10 mg tablet 07-28 00:00: 00 08-28 05:59 :00 Yes [id number] 10mg Take 1 tablet by mouth in the morning for 30 days. [facility] escitalopra m oxalate 10 mg tablet 07-28 00:00: 00 08-28 05:59 :00 Yes [id number] 10mg Take 1 tablet by mouth in the morning for 30 days. [facility] cefTRIAXone (ROCEPHIN) 350 mg/mL in Lidocaine 1 % injection 500 mg 2023-07 02:30: 00 06-03 03:27 :00 No 500mg 500 mg, Intramuscu lar, ONCE, 1 dose, On 06/02/24 at 2030, SHAMAR, Reason for Anti-Infec tive: Empiric Therapy for Suspected Infection, Empiric Therapy Site: Pelvic, Duration of therapy: Once (ED) [facility] azithromyci n (ZITHROMAX) tablet 1,000 mg 2023-07 01:45: 00 06-03 03:28 :00 No 1000mg 1,000 mg, Oral, ONCE, 1 dose, On 06/02/24 at 1945, SHAMAR, Reason for Anti-Infec tive: Empiric Therapy for Suspected Infection, Empiric Therapy Site: Pelvic, Duration of therapy: Once (ED) [facility] metroNIDAZO LE 500 mg tablet 2023-07 00:00: 00 Yes [id number] 500mg Take 1 tablet by mouth in the morning and 1 tablet in the evening. [facility] ARIPiprazol e (ABILIFY) 2 mg tablet 2023-07 00:00: 00 07-03 05:59 :00 No [id number] 2mg Take 1 tablet by mouth in the morning for 30 days. [facility] ketorolac (TORADOL) injection 30 mg 2022-07 05:45: 00 05-15 04:55 :00 No 30mg 30 mg, Slow IV Push, ONCE, 1 dose, On 05/15/23 at 0045, Routine [facility] FENTanyl PF (SUBLIMAZE (PF)) injection 50 mcg 2022-07 05:15: 00 05-15 04:27 :00 No 50ug 50 mcg, Slow IV Push, ONCE, 1 dose, On 05/15/23 at 0015, Routine [facility] ondansetron (ZOFRAN (PF)) injection 4 mg 2022-07 05:00: 00 05-15 04:59 :00 No 4mg 4 mg, Slow IV Push, ONCE, 1 dose, On 05/15/23 at 0000, SHAMAR [facility] iopamidol (ISOVUE 370-500 mL) injection 80 mL 2022-07 05:00: 00 05-15 05:00 :00 No [id number] 80mL 80 mL, Intravenou s, ONCE, 1 dose, On 05/15/23 at 0000, Routine [facility] morpHINE (4 mg/mL) injection 4 mg 2022-07 04:00: 00 05-15 03:56 :00 No 4mg 4 mg, Slow IV Push, ONCE, 1 dose, On 05/14/23 at 2300, STAT [facility] ondansetron (ZOFRAN (PF)) injection 4 mg 2022-07 04:00: 00 05-15 03:56 :00 No 4mg 4 mg, Slow IV Push, ONCE, 1 dose, On 05/14/23 at 2300, SHAMAR [facility] ketorolac 10 mg tablet 2022-07 00:00: 00 Yes [id number] 10mg Take 1 tablet by mouth every 6 (six) hours as needed for Pain (scale 1-3). [facility] docusate (COLACE) capsule 100 mg 2022-07 13:00: 00 05-15 02:05 :19 No 100mg 100 mg, Oral, Q12H, First dose on 05/14/23 at 0800, Until Discontinu ed, Routine [facility] simethicone (GAS RELIEF (SIMETHICON E)) chewable tablet 160 mg 2022-07 02:00: 00 05-15 02:05 :19 No 160mg 160 mg, Oral, PC+HS, First dose on Tue05/13/23 at 2100, Until Discontinu ed, Routine [facility] ondansetron (ZOFRAN (PF)) injection 4 mg 2022-07 01:37: 02 05-14 01:38 :00 No 4mg 4 mg, Slow IV Push, PRN, 1 dose, Starting on Tue05/13/23 at 2036, Until Tue05/13/23 at 2037, Routine, Nausea and Vomiting (N/V), PACU [facility] FENTanyl PF (SUBLIMAZE (PF)) injection 25 mcg 2022-07 01:37: 02 05-14 02:43 :04 No 25ug 25 mcg, Slow IV Push, Q5MIN PRN, 4 doses, Starting on Tue05/13/23 at 2036, Until Tue05/13/23 at 2142, Routine, Pain (scale 4-6), PACU [facility] diphenhydrA MINE (BENADRYL) injection 25 mg 2022-07 01:13: 28 05-15 02:05 :19 No 25mg 25 mg, Slow IV Push, Q6HPRN, Starting on Tue05/13/23 at 2012, Until 05/14/23 at 2104, Routine, Itching [facility] ondansetron (ZOFRAN (PF)) injection 4 mg 2022-07 01:13: 26 05-15 02:05 :19 No 4mg 4 mg, Slow IV Push, Q4HPRN, Starting on Tue05/13/23 at 2012, Until 05/14/23 at 2104, Routine, Nausea and Vomiting (N/V) [facility] HYDROcodone -acetaminop hen (NORCO 5) 5-325 mg tablet 1 tablet 2022-07 01:13: 22 05-15 02:05 :19 No 1{tbl} 1 tablet, Oral, Q6HPRN, Starting on Tue05/13/23 at 2012, Until 05/14/23 at 2104, Routine, Pain (scale 4-6) [facility] ibuprofen (IBU) tablet 600 mg 2022-07 01:13: 19 05-15 02:05 :19 No 600mg 600 mg, Oral, Q6HPRN, Starting on Tue05/13/23 at 2012, Until 05/14/23 at 2104, Routine, Pain (scale 1-3) [facility] bupivacaine (preserv free) 0.5% (SENSORCAIN E MPF) injection 2022-07 00:57: 00 05-15 02:05 :19 No PRN, Starting on Tue05/13/23 at 1957, Until 05/14/23 at 2105, Routine, Intra-op [facility] sodium chloride 0.9 % irrigation solution 2022-07 00:30: 00 05-14 02:41 :13 No PRN, Starting on Tue05/13/23 at 1930, Until Tue05/13/23 at 2141, Intra-op [facility] HYDROcodone -acetaminop hen 5-325 mg tablet 2022-07 00:00: 00 05-22 04:59 :00 No [id number] 1{tbl} Take 1 tablet by mouth every 6 (six) hours as needed for Pain (scale 4-6) or Pain (scale 7-10) for up to 7 days. Indication s: acute pain [facility] morpHINE (2 mg/mL) injection 2 mg 2022-07 22:45: 00 05-13 22:48 :00 No 2mg 2 mg, Slow IV Push, ONCE, 1 dose, On Tue05/13/23 at 1745, STAT [facility] ondansetron (ZOFRAN (PF)) injection 4 mg 2022-07 21:00: 00 05-13 21:04 :00 No 4mg 4 mg, Slow IV Push, ONCE, 1 dose, On Tue05/13/23 at 1600, SHAMAR [facility] morpHINE (4 mg/mL) injection 4 mg 2022-07 21:00: 00 05-13 21:03 :00 No 4mg 4 mg, Slow IV Push, ONCE, 1 dose, On Tue05/13/23 at 1600, STAT [facility] fluconazole (DIFLUCAN) 150 mg tablet 03-04 00:00: 00 03-05 04:59 :00 No [id number] 150mg Take 1 tablet by mouth once now for 1 dose. [facility] morpHINE (2 mg/mL) injection 2 mg 03-01 15:39: 37 Yes 2mg 2 mg, Slow IV Push, Q5MIN PRN, 5 doses, Starting on Tue03/01/23 at 1039, Until Discontinu ed, Routine, Pain (scale 4-6), PACU [facility] ondansetron (ZOFRAN (PF)) injection 4 mg 03-01 15:39: 37 Yes 4mg 4 mg, Slow IV Push, PRN, 1 dose, Starting on Tue03/01/23 at 1039, Until Discontinu ed, Routine, Nausea and Vomiting (N/V), PACU [facility] sodium chloride 0.9 % irrigation solution 03-01 14:30: 00 03-01 16:08 :26 No PRN, Starting on Tue03/01/23 at 0930, Until Tue03/01/23 at 1108, Intra-op [facility] iohexoL (OMNIPAQUE 300-50 mL)) injection 03-01 14:30: 00 03-01 16:08 :26 No PRN, Starting on Tue03/01/23 at 0930, Until Tue03/01/23 at 1108, Routine, Intra-op [facility] bupivacaine (preserv free) (SENSORCAIN E MPF) 0.25 % (2.5 mg/mL) 30 mL, lidocaine-e pinephrine (XYLOCAINE WITH EPINEPHRINE ) 1 %-1:100,000 30 mL 03-01 14:28: 00 03-01 16:08 :26 No PRN, Starting on Tue03/01/23 at 0928, Intra-op [facility] lactated ringers IV infusion 1,000 mL 03-01 13:30: 00 03-01 13:37 :00 No 1000mL at 42 mL/hr, 1,000 mL, IV Infusion, ONCE, 1 dose, On Tue03/01/23 at 0830, Routine, DSU Pre-op [facility] ibuprofen 800 mg tablet 03-01 00:00: 00 05-10 00:00 :00 No [id number] 800mg Take 1 tablet by mouth every 6 (six) hours as needed for Pain (scale 4-6). [facility] HYDROcodone -acetaminop hen (NORCO) 5-325 mg tablet 8-15 00:00: 00 03-09 04:59 :00 No [id number] 1{tbl} Take 1 tablet by mouth every 6 (six) hours as needed for Pain (scale 7-10) for up to 7 days. Indication s: acute pain [facility] fluconazole (DIFLUCAN) 150 mg tablet 6-15 00:00: 00 12-31 04:59 :00 No [id number] 150mg Take 1 tablet by mouth once now for 1 dose. [facility] omeprazole 20 mg capsule 4-28 00:00: 00 11-27 04:59 :00 No [id number] 20mg Take 1 capsule by mouth in the morning for 14 days. [facility] triamcinolo ne acetonide 0.1 % cream 3-03 00:00: 00 03-01 00:00 :00 No [id number] Apply to area(s) 2 (two) times daily. [facility] metroNIDAZO LE 500 mg tablet 3-03 00:00: 00 09-25 05:59 :00 No [id number] 500mg Take 1 tablet by mouth every 12 (twelve) hours for 7 days. [facility] levonorgest reL (KYLEENA) IUD 1 Device 2021-07 17:15: 00 06-09 16:22 :00 No [id number] 1{devic e} [facility] miSOPROStoL 200 mcg tablet 2021-07 0 00:00: 00 06-09 00:00 :00 No [id number] 200ug Take 1 tablet by mouth SEE-INSTRU CTIONS. Take one tab the night before and one tab the morning of procedure [facility] fluoxetine HCl (PROZAC ORAL) 2021-07 0-05 08:16: 25 04-21 00:00 :00 No Take by mouth. [facility] famotidine (PEPCID (PF)) injection 20 mg 2021-07 0-05 01:00: 00 04-20 22:33 :17 No 20mg 20 mg, Slow IV Push, Q12H, 4 doses, First dose on Tue04/20/22 at 2000, Last dose on Tue04/22/22 at 0800, Routine [facility] vitamin w/FA tablet 2021-07 00:00: 00 Yes [id number] 1{tbl} Take 1 tablet by mouth in the morning. [facility] docusate 100 mg capsule 2021-07 00:00: 00 Yes [id number] 200mg Take 2 capsules by mouth once daily as needed for Constipati on. [facility] ibuprofen 600 mg tablet 2021-07 00:00: 00 Yes [id number] 600mg Take 1 tablet by mouth every 6 (six) hours as needed (Pain). Take with food or milk. [facility] ferrous sulfate 325 mg (65 mg iron) tablet 2021-07 00:00: 00 03-01 00:00 :00 No [id number] 325mg Take 1 tablet by mouth in the morning and 1 tablet in the evening. [facility] rho(D) immune globulin (RHOGAM) syringe 300 mcg 2021-07 22:33: 32 Yes 300ug 300 mcg, Intramuscu lar, ONCE, For 1 dose, Conditiona l, Routine [facility] HYDROcodone -acetaminop hen (NORCO 5) 5-325 mg tablet 1 tablet 2021-07 22:33: 28 Yes 1{tbl} 1 tablet, Oral, Q6HPRN, Starting on Tue04/20/22 at 1733, Until Discontinu ed, Routine, Pain (scale 7-10) [facility] ibuprofen (IBU) tablet 600 mg 2021-07 22:33: 28 Yes 600mg 600 mg, Oral, Q6HPRN, Starting on Tue04/20/22 at 1733, Until Discontinu ed, Routine, Pain (scale 4-6) [facility] acetaminoph en (TYLENOL) tablet 650 mg 2021-07 0 22:33: 28 Yes 650mg 650 mg, Oral, Q6HPRN, Starting on Tue04/20/22 at 1733, Until Discontinu ed, Routine, Pain (scale 1-3) [facility] diphenhydrA MINE (BENADRYL) tablet 25 mg 2021-07 004 22:33: 28 Yes 25mg 25 mg, Oral, Q6HPRN, Starting on Tue04/20/22 at 1733, Until Discontinu ed, Routine, Sleep, Itching [facility] ondansetron (ZOFRAN (PF)) injection 4 mg 2021-07 004 22:33: 28 Yes 4mg 4 mg, Slow IV Push, Q8HPRN, Starting on Tue04/20/22 at 1733, Until Discontinu ed, Routine, Nausea and Vomiting (N/V) [facility] simethicone (GAS RELIEF (SIMETHICON E)) chewable tablet 160 mg 2021-07 004 22:33: 28 Yes 160mg 160 mg, Oral, PC+HSPRN, Starting on Tue04/20/22 at 1733, Until Discontinu ed, Routine, Gas [facility] docusate (COLACE) capsule 200 mg 2021-07 22:33: 28 Yes 200mg 200 mg, Oral, QDAILYPRN, Starting on Tue04/20/22 at 1733, Until Discontinu ed, Routine, Constipati on [facility] magnesium hydroxide (MILK OF MAGNESIA) 400 mg/5 mL suspension 30 mL 2021-07 0 22:33: 28 Yes 30mL 30 mL, Oral, QDAILYPRN, Starting on Tue04/20/22 at 1733, Until Discontinu ed, Routine, Constipati on [facility] benzocaine- menthol (DERMOPLAST ) 20-0.5 % topical spray 2021-07 0 22:33: 28 Yes Topical, PRN, Starting on Tue04/20/22 at 1733, Until Discontinu ed, Routine, Perineum discomfort [facility] witch Renuka (TUCKS) 50 % topical pad 2021-07 004 22:33: 17 Yes Topical, Q4HPRN, Starting on Tue04/20/22 at 1733, Until Discontinu ed, Routine, rectal/hem orrhoidal pain [facility] fluoxetine HCl (PROZAC ORAL) 2021-07 0 17:24: 43 Yes Take by mouth. [facility] PIB fentaNYL-ro pivacaine 2 mcg/mL-0.1 % (PF) in NS 200 mL epidural infusion RTU 2021-07 004 14:11: 00 04-20 23:30 :10 No Epidural, ONCE INTRA PROCEDURE, Starting on Tue04/20/22 at 0911, Until Tue04/20/22 at 1830, Routine, Intra-op [facility] lidocaine-e pinephrine (XYLOCAINE W/EPINEPHRI NE) 1.5 %-1:200,000 injection 2021-07 0 14:10: 00 04-20 23:30 :10 No Epidural, ONCE INTRA PROCEDURE, Starting on Tue04/20/22 at 0910, Until Tue04/20/22 at 1830, Routine, Intra-op [facility] lidocaine 1% (XYLOCAINE) 100 mg/10 mL (1 %) injection 2021-07 0 14:10: 00 04-20 23:30 :10 No Infiltrati on, ONCE INTRA PROCEDURE, Starting on Tue04/20/22 at 0910, Until Tue04/20/22 at 1830, Routine, Intra-op [facility] lactated ringers IV infusion 500 mL 2021-07 0-04 08:45: 00 04-20 10:42 :00 No 500mL at 999 mL/hr, 500 mL, IV Infusion, ONCE, 1 dose, On Tue04/20/22 at 0345, Routine [facility] lactated ringers IV infusion 500 mL 2021-07 0-04 08:43: 17 04-20 22:33 :21 No 500mL at 999 mL/hr, 500 mL, IV Infusion, PRN - SEE INSTRUCTIO NS, Starting on Tue04/20/22 at 0343, Until Tue04/20/22 at 1733, Routine [facility] FENTanyl PF (SUBLIMAZE (PF)) injection 100 mcg 2021-07 08:43: 17 04-20 22:33 :17 No 100ug 100 mcg, Slow IV Push, Q1HPRN, Starting on Tue04/20/22 at 0343, Until Tue04/20/22 at 1733, Routine, contractio n pain without an epidural and SVE < 8 cm and Cat I strip [facility] oxytocin (PITOCIN) 30 units in NS 500 mL IV infusion 2021-07 08:43: 17 04-20 22:33 :21 No 2mU/min at 2-40 mL/hr, IV Infusion, TITRATE, Starting on Tue04/20/22 at 0343, Until Tue04/20/22 at 1733, SHAMAR [facility] sodium citrate-cit ix acid (BICITRA) 500-334 mg/5 mL solution 30 mL 2021-07 08:43: 17 04-20 12:59 :00 No 30mL 30 mL, Oral, PRE-PROCED URE ONCE, 1 dose, Starting on Tue04/20/22 at 034, Until Discontinu ed, Routine, Surgery/Pr ocedure [facility] D5W-LR IV infusion 1,000 mL 2021-07 08:43: 17 04-20 22:33 :21 No 1000mL at 1-125 mL/hr, IV Infusion, TITRATE, Starting on Tue04/20/22 at 0343, Until Tue04/20/22 at 1733, Routine [facility] lactated ringers IV infusion 500 mL 2021-07 08:43: 16 04-20 14:46 :00 No 500mL at 999 mL/hr, 500 mL, IV Infusion, PRN - SEE INSTRUCTIO NS, 1 dose, Starting on Tue04/20/22 at 034, Until Discontinu ed, Routine [facility] 25/iron fum/folic/d tolliver (-1 ORAL) -28 10:08: 05 Yes Take by mouth. [facility] 25/iron fum/folic/d tolliver (-1 ORAL) -15 11:23: 13 Yes Take by mouth. [facility] famotidine 40 mg tablet 9-15 00:00: 00 04-21 00:00 :00 No [id number] 40mg Take 1 tablet by mouth in the morning. [facility] clindamycin (CLEOCIN) 100 mg vaginal suppository 8-11 00:00: 00 04-01 00:00 :00 No [id number] 100mg Insert 1 Suppositor y into vagina at bedtime. [facility] famotidine 40 mg tablet 8-09 00:00: 00 04-01 00:00 :00 No [id number] 40mg Take 1 tablet by mouth in the morning. [facility] fluoxetine HCl (PROZAC ORAL) 15 21:39: 50 Yes Take by mouth. [facility] metroNIDAZO LE 500 mg tablet 6- 00:00: 00 04-01 00:00 :00 No [id number] 500mg Take 1 tablet by mouth every 12 (twelve) hours. [facility] azithromyci n 500 mg tablet 4- 00:00: 00 04-01 00:00 :00 No [id number] 500mg Take 1 tablet by mouth daily. [facility] metoclopram yamini HCl 10 mg tablet 3-30 00:00: 00 04-21 00:00 :00 No [id number] 10mg Take 1 tablet by mouth every 6 (six) hours as needed for Nausea and Vomiting (N/V). [facility] fluticasone propionate 50 mcg/actuati on nasal spray 2018-07 00:00: 00 04-21 00:00 :00 No [id number] 2{spray } Use 2 Sprays in each nostril daily. [facility] ARIPiprazol e 10 mg tablet 2018-07- 00:00: 00 04-21 00:00 :00 No 10mg Take 10 mg by mouth daily. [facility] SERTraline (ZOLOFT) 50 mg tablet 2019-0 9-25 00:00: 00 2021- 10-05 00:00 :00 No [id number] Take 1 tab po daily [facility] Immunizations Ordered Immunization Name Filled Immunization Name Date Status Comments Source TD 2022-02-02 00:00:00 Completed [facility] TDAP 2022-02-02 00:00:00 Completed [facility] TDAP 2022-02-02 00:00:00 Completed [facility] TDAP 2022-02-02 00:00:00 Completed [facility] TDAP 2022-02-02 00:00:00 Completed [facility] TDAP 2022-02-02 00:00:00 Completed [facility] TDAP 2022-02-02 00:00:00 Completed [facility] TDAP 2022-02-02 00:00:00 Completed [facility] TDAP 2022-02-02 00:00:00 Completed [facility] TDAP 2022-02-02 00:00:00 Completed [facility] TDAP 2022-02-02 00:00:00 Completed [facility] TDAP 2022-02-02 00:00:00 Completed [facility] TDAP 2022-02-02 00:00:00 Completed [facility] TDAP 2022-02-02 00:00:00 Completed [facility] TDAP 2022-02-02 00:00:00 Completed [facility] TDAP 2022-02-02 00:00:00 Completed [facility] TDAP 2022-02-02 00:00:00 Completed [facility] TDAP 2022-02-02 00:00:00 Completed [facility] TDAP 2022-02-02 00:00:00 Completed [facility] TDAP 2022-02-02 00:00:00 Completed [facility] TDAP 2022-02-02 00:00:00 Completed [facility] TDAP 2022-02-02 00:00:00 Completed [facility] TDAP 2022-02-02 00:00:00 Completed [facility] TDAP 2022-02-02 00:00:00 Completed [facility] TDAP 2022-02-02 00:00:00 Completed [facility] TDAP 2022-02-02 00:00:00 Completed [facility] TDAP 2022-02-02 00:00:00 Completed [facility] TDAP 2022-02-02 00:00:00 Completed [facility] TDAP 2022-02-02 00:00:00 Completed [facility] TDAP 2022-02-02 00:00:00 Completed [facility] TDAP 2022-02-02 00:00:00 Completed [facility] TDAP 2022-02-02 00:00:00 Completed [facility] TDAP 2022-02-02 00:00:00 Completed [facility] TDAP 2022-02-02 00:00:00 Completed [facility] TDAP 2022-02-02 00:00:00 Completed [facility] TDAP 2022-02-02 00:00:00 Completed [facility] TDAP 2022-02-02 00:00:00 Completed [facility] TDAP 2022-02-02 00:00:00 Completed [facility] TDAP 2022-02-02 00:00:00 Completed [facility] Influenza Virus Vaccine Quad IM, Preserv and ABX Free 6 MO-64 YRS 2021-10-14 00:00:00 Completed [facility] Influenza Virus Vaccine Quad IM, Preserv and ABX Free 6 MO-64 YRS 2021-10-14 00:00:00 Completed [facility] Influenza Virus Vaccine Quad IM, Preserv and ABX Free 6 MO-64 YRS 2021-10-14 00:00:00 Completed [facility] Influenza Virus Vaccine Quad IM, Preserv and ABX Free 6 MO-64 YRS 2021-10-14 00:00:00 Completed [facility] Influenza Virus Vaccine Quad IM, Preserv and ABX Free 6 MO-64 YRS 2021-10-14 00:00:00 Completed [facility] Influenza Virus Vaccine Quad IM, Preserv and ABX Free 6 MO-64 YRS 2021-10-14 00:00:00 Completed [facility] Influenza Virus Vaccine Quad IM, Preserv and ABX Free 6 MO-64 YRS 2021-10-14 00:00:00 Completed [facility] Influenza Virus Vaccine Quad IM, Preserv and ABX Free 6 MO-64 YRS 2021-10-14 00:00:00 Completed [facility] Influenza Virus Vaccine Quad IM, Preserv and ABX Free 6 MO-64 YRS 2021-10-14 00:00:00 Completed [facility] Influenza Virus Vaccine Quad IM, Preserv and ABX Free 6 MO-64 YRS 2021-10-14 00:00:00 Completed [facility] Influenza Virus Vaccine Quad IM, Preserv and ABX Free 6 MO-64 YRS 2021-10-14 00:00:00 Completed [facility] Influenza Virus Vaccine Quad IM, Preserv and ABX Free 6 MO-64 YRS 2021-10-14 00:00:00 Completed [facility] Influenza Virus Vaccine Quad IM, Preserv and ABX Free 6 MO-64 YRS 2021-10-14 00:00:00 Completed [facility] Influenza Virus Vaccine Quad IM, Preserv and ABX Free 6 MO-64 YRS 2021-10-14 00:00:00 Completed [facility] Influenza Virus Vaccine Quad IM, Preserv and ABX Free 6 MO-64 2021-10-14 00:00:00 Completed [facility] Influenza Virus Vaccine Quad IM, Preserv and ABX Free 6 MO-64 YRS 2021-10-14 00:00:00 Completed [facility] Influenza Virus Vaccine Quad IM, Preserv and ABX Free 6 MO-64 YRS 2021-10-14 00:00:00 Completed [facility] Influenza Virus Vaccine Quad IM, Preserv and ABX Free 6 MO-64 YRS 2021-10-14 00:00:00 Completed [facility] Influenza Virus Vaccine Quad IM, Preserv and ABX Free 6 MO-64 YRS 2021-10-14 00:00:00 Completed [facility] Influenza Virus Vaccine Quad IM, Preserv and ABX Free 6 MO-64 YRS 2021-10-14 00:00:00 Completed [facility] Influenza Virus Vaccine Quad IM, Preserv and ABX Free 6 MO-64 YRS 2021-10-14 00:00:00 Completed [facility] Influenza Virus Vaccine Quad IM, Preserv and ABX Free 6 MO-64 YRS 2021-10-14 00:00:00 Completed [facility] Influenza Virus Vaccine Quad IM, Preserv and ABX Free 6 MO-64 YRS 2021-10-14 00:00:00 Completed [facility] Influenza Virus Vaccine Quad IM, Preserv and ABX Free 6 MO-64 YRS 2021-10-14 00:00:00 Completed [facility] Influenza Virus Vaccine Quad IM, Preserv and ABX Free 6 MO-64 YRS 2021-10-14 00:00:00 Completed [facility] Influenza Virus Vaccine Quad IM, Preserv and ABX Free 6 MO-64 YRS 2021-10-14 00:00:00 Completed [facility] Influenza Virus Vaccine Quad IM, Preserv and ABX Free 6 MO-64 YRS 2021-10-14 00:00:00 Completed [facility] Influenza Virus Vaccine Quad IM, Preserv and ABX Free 6 MO-64 YRS 2021-10-14 00:00:00 Completed [facility] Influenza Virus Vaccine Quad IM, Preserv and ABX Free 6 MO-64 YRS 2021-10-14 00:00:00 Completed [facility] Influenza Virus Vaccine Quad IM, Preserv and ABX Free 6 MO-64 YRS 2021-10-14 00:00:00 Completed [facility] Influenza Virus Vaccine Quad IM, Preserv and ABX Free 6 MO-64 YRS 2021-10-14 00:00:00 Completed [facility] Influenza Virus Vaccine Quad IM, Preserv and ABX Free 6 MO-64 YRS 2021-10-14 00:00:00 Completed [facility] Influenza Virus Vaccine Quad IM, Preserv and ABX Free 6 MO-64 YRS 2021-10-14 00:00:00 Completed [facility] Influenza Virus Vaccine Quad IM, Preserv and ABX Free 6 MO-64 YRS 2021-10-14 00:00:00 Completed [facility] Influenza Virus Vaccine Quad IM, Preserv and ABX Free 6 MO-64 YRS 2021-10-14 00:00:00 Completed [facility] Influenza Virus Vaccine Quad IM, Preserv and ABX Free 6 MO-64 YRS 2021-10-14 00:00:00 Completed [facility] Influenza Virus Vaccine Quad IM, Preserv and ABX Free 6 MO-64 YRS 2021-10-14 00:00:00 Completed [facility] Influenza Virus Vaccine Quad IM, Preserv and ABX Free 6 MO-64 YRS (FLUCELVAX) 2021-10-14 00:00:00 Completed [facility] Influenza Virus Vaccine Quad IM, Preserv and ABX Free 6 MO-64 YRS (FLUCELVAX) 2021-10-14 00:00:00 Completed [facility] Influenza Virus Vaccine Quad .5 mL IM 6+ MO 2019-04-25 00:00:00 Completed [facility] Influenza Virus Vaccine Quad .5 mL IM 6+ MO 2019-04-25 00:00:00 Completed [facility] Influenza Virus Vaccine Quad .5 mL IM 6+ MO 2019-04-25 00:00:00 Completed [facility] Influenza Virus Vaccine Quad .5 mL IM 6+ MO 2019-04-25 00:00:00 Completed [facility] Influenza Virus Vaccine Quad .5 mL IM 6+ MO 2019-04-25 00:00:00 Completed [facility] Influenza Virus Vaccine Quad .5 mL IM 6+ MO 2019-04-25 00:00:00 Completed [facility] Influenza Virus Vaccine Quad .5 mL IM 6+ MO 2019-04-25 00:00:00 Completed [facility] Influenza Virus Vaccine Quad .5 mL IM 6+ MO 2019-04-25 00:00:00 Completed [facility] Influenza Virus Vaccine Quad .5 mL IM 6+ MO 2019-04-25 00:00:00 Completed [facility] Influenza Virus Vaccine Quad .5 mL IM 6+ MO 2019-04-25 00:00:00 Completed [facility] Influenza Virus Vaccine Quad .5 mL IM 6+ MO 2019-04-25 00:00:00 Completed [facility] Influenza Virus Vaccine Quad .5 mL IM 6+ MO 2019-04-25 00:00:00 Completed [facility] Influenza Virus Vaccine Quad .5 mL IM 6+ MO 2019-04-25 00:00:00 Completed [facility] Influenza Virus Vaccine Quad .5 mL IM 6+ MO 2019-04-25 00:00:00 Completed [facility] Influenza Virus Vaccine Quad .5 mL IM 6+ MO 2019-04-25 00:00:00 Completed [facility] Influenza Virus Vaccine Quad .5 mL IM 6+ MO 2019-04-25 00:00:00 Completed [facility] Influenza Virus Vaccine Quad .5 mL IM 6+ MO 2019-04-25 00:00:00 Completed [facility] Influenza Virus Vaccine Quad .5 mL IM 6+ MO 2019-04-25 00:00:00 Completed [facility] Influenza Virus Vaccine Quad .5 mL IM 6+ MO 2019-04-25 00:00:00 Completed [facility] Influenza Virus Vaccine Quad .5 mL IM 6+ MO 2019-04-25 00:00:00 Completed [facility] Influenza Virus Vaccine Quad .5 mL IM 6+ MO 2019-04-25 00:00:00 Completed [facility] Influenza Virus Vaccine Quad .5 mL IM 6+ MO 2019-04-25 00:00:00 Completed [facility] Influenza Virus Vaccine Quad .5 mL IM 6+ MO 2019-04-25 00:00:00 Completed [facility] Influenza Virus Vaccine Quad .5 mL IM 6+ MO 2019-04-25 00:00:00 Completed [facility] Influenza Virus Vaccine Quad .5 mL IM 6+ MO 2019-04-25 00:00:00 Completed [facility] Influenza Virus Vaccine Quad .5 mL IM 6+ MO 2019-04-25 00:00:00 Completed [facility] Influenza Virus Vaccine Quad .5 mL IM 6+ MO 2019-04-25 00:00:00 Completed [facility] Influenza Virus Vaccine Quad .5 mL IM 6+ MO 2019-04-25 00:00:00 Completed [facility] Influenza Virus Vaccine Quad .5 mL IM 6+ MO 2019-04-25 00:00:00 Completed [facility] Influenza Virus Vaccine Quad .5 mL IM 6+ MO 2019-04-25 00:00:00 Completed [facility] Influenza Virus Vaccine Quad .5 mL IM 6+ MO 2019-04-25 00:00:00 Completed [facility] Influenza Virus Vaccine Quad .5 mL IM 6+ MO 2019-04-25 00:00:00 Completed [facility] Influenza Virus Vaccine Quad .5 mL IM 6+ MO 2019-04-25 00:00:00 Completed [facility] Influenza Virus Vaccine Quad .5 mL IM 6+ MO 2019-04-25 00:00:00 Completed [facility] Influenza Virus Vaccine Quad .5 mL IM 6+ MO 2019-04-25 00:00:00 Completed [facility] Influenza Virus Vaccine Quad .5 mL IM 6+ MO 2019-04-25 00:00:00 Completed [facility] Influenza Virus Vaccine Quad .5 mL IM 6+ MO 2019-04-25 00:00:00 Completed [facility] Influenza Virus Vaccine Quad .5 mL IM 6+ MO (FLUZONE/FLULAVAL/F LUARIX) 2019-04-25 00:00:00 Completed [facility] Influenza Virus Vaccine Quad .5 mL IM 6+ MO (FLUZONE/FLULAVAL/F LUARIX) 2019-04-25 00:00:00 Completed [facility] Influenza Virus Vaccine Quad .5 mL IM 6+ MO 2018-11-07 00:00:00 Completed [facility] Influenza Virus Vaccine Quad .5 mL IM 6+ MO 2018-11-07 00:00:00 Completed [facility] Influenza Virus Vaccine Quad .5 mL IM 6+ MO 2018-11-07 00:00:00 Completed [facility] Influenza Virus Vaccine Quad .5 mL IM 6+ MO 2018-11-07 00:00:00 Completed [facility] Influenza Virus Vaccine Quad .5 mL IM 6+ MO 2018-11-07 00:00:00 Completed [facility] Influenza Virus Vaccine Quad .5 mL IM 6+ MO 2018-11-07 00:00:00 Completed [facility] Influenza Virus Vaccine Quad .5 mL IM 6+ MO 2018-11-07 00:00:00 Completed [facility] Influenza Virus Vaccine Quad .5 mL IM 6+ MO 2018-11-07 00:00:00 Completed [facility] Influenza Virus Vaccine Quad .5 mL IM 6+ MO 2018-11-07 00:00:00 Completed [facility] Influenza Virus Vaccine Quad .5 mL IM 6+ MO 2018-11-07 00:00:00 Completed [facility] Influenza Virus Vaccine Quad .5 mL IM 6+ MO 2018-11-07 00:00:00 Completed [facility] Influenza Virus Vaccine Quad .5 mL IM 6+ MO 2018-11-07 00:00:00 Completed [facility] Influenza Virus Vaccine Quad .5 mL IM 6+ MO 2018-11-07 00:00:00 Completed [facility] Influenza Virus Vaccine Quad .5 mL IM 6+ MO 2018-11-07 00:00:00 Completed [facility] Influenza Virus Vaccine Quad .5 mL IM 6+ MO 2018-11-07 00:00:00 Completed [facility] Influenza Virus Vaccine Quad .5 mL IM 6+ MO 2018-11-07 00:00:00 Completed [facility] Influenza Virus Vaccine Quad .5 mL IM 6+ MO 2018-11-07 00:00:00 Completed [facility] Influenza Virus Vaccine Quad .5 mL IM 6+ MO 2018-11-07 00:00:00 Completed [facility] Influenza Virus Vaccine Quad .5 mL IM 6+ MO 2018-11-07 00:00:00 Completed [facility] Influenza Virus Vaccine Quad .5 mL IM 6+ MO 2018-11-07 00:00:00 Completed [facility] Influenza Virus Vaccine Quad .5 mL IM 6+ MO 2018-11-07 00:00:00 Completed [facility] Influenza Virus Vaccine Quad .5 mL IM 6+ MO 2018-11-07 00:00:00 Completed [facility] Influenza Virus Vaccine Quad .5 mL IM 6+ MO 2018-11-07 00:00:00 Completed [facility] Influenza Virus Vaccine Quad .5 mL IM 6+ MO 2018-11-07 00:00:00 Completed [facility] Influenza Virus Vaccine Quad .5 mL IM 6+ MO 2018-11-07 00:00:00 Completed [facility] Influenza Virus Vaccine Quad .5 mL IM 6+ MO 2018-11-07 00:00:00 Completed [facility] Influenza Virus Vaccine Quad .5 mL IM 6+ MO 2018-11-07 00:00:00 Completed [facility] Influenza Virus Vaccine Quad .5 mL IM 6+ MO 2018-11-07 00:00:00 Completed [facility] Influenza Virus Vaccine Quad .5 mL IM 6+ MO 2018-11-07 00:00:00 Completed [facility] Influenza Virus Vaccine Quad .5 mL IM 6+ MO 2018-11-07 00:00:00 Completed [facility] Influenza Virus Vaccine Quad .5 mL IM 6+ MO 2018-11-07 00:00:00 Completed [facility] Influenza Virus Vaccine Quad .5 mL IM 6+ MO 2018-11-07 00:00:00 Completed [facility] Influenza Virus Vaccine Quad .5 mL IM 6+ MO 2018-11-07 00:00:00 Completed [facility] Influenza Virus Vaccine Quad .5 mL IM 6+ MO 2018-11-07 00:00:00 Completed [facility] Influenza Virus Vaccine Quad .5 mL IM 6+ MO 2018-11-07 00:00:00 Completed [facility] Influenza Virus Vaccine Quad .5 mL IM 6+ MO 2018-11-07 00:00:00 Completed [facility] Influenza Virus Vaccine Quad .5 mL IM 6+ MO 2018-11-07 00:00:00 Completed [facility] Influenza Virus Vaccine Quad .5 mL IM 6+ MO (FLUZONE/FLULAVAL/F LUARIX) 2018-11-07 00:00:00 Completed [facility] Influenza Virus Vaccine Quad .5 mL IM 6+ MO (FLUZONE/FLULAVAL/F LUARIX) 2018-11-07 00:00:00 Completed TDAP 2017-06-13 00:00:00 Completed [facility] TDAP 2017-06-13 00:00:00 Completed [facility] TDAP 2017-06-13 00:00:00 Completed [facility] TDAP 2017-06-13 00:00:00 Completed [facility] TDAP 2017-06-13 00:00:00 Completed [facility] TDAP 2017-06-13 00:00:00 Completed [facility] TDAP 2017-06-13 00:00:00 Completed [facility] TDAP 2017-06-13 00:00:00 Completed [facility] TDAP 2017-06-13 00:00:00 Completed [facility] TDAP 2017-06-13 00:00:00 Completed [facility] TDAP 2017-06-13 00:00:00 Completed [facility] TDAP 2017-06-13 00:00:00 Completed [facility] TDAP 2017-06-13 00:00:00 Completed [facility] TDAP 2017-06-13 00:00:00 Completed [facility] TDAP 2017-06-13 00:00:00 Completed [facility] TDAP 2017-06-13 00:00:00 Completed [facility] TDAP 2017-06-13 00:00:00 Completed [facility] TDAP 2017-06-13 00:00:00 Completed [facility] TDAP 2017-06-13 00:00:00 Completed [facility] TDAP 2017-06-13 00:00:00 Completed [facility] TDAP 2017-06-13 00:00:00 Completed [facility] TDAP 2017-06-13 00:00:00 Completed [facility] TDAP 2017-06-13 00:00:00 Completed [facility] TDAP 2017-06-13 00:00:00 Completed [facility] TDAP 2017-06-13 00:00:00 Completed [facility] TDAP 2017-06-13 00:00:00 Completed [facility] TDAP 2017-06-13 00:00:00 Completed [facility] TDAP 2017-06-13 00:00:00 Completed [facility] TDAP 2017-06-13 00:00:00 Completed [facility] TDAP 2017-06-13 00:00:00 Completed [facility] TDAP 2017-06-13 00:00:00 Completed [facility] TDAP 2017-06-13 00:00:00 Completed [facility] TDAP 2017-06-13 00:00:00 Completed [facility] TDAP 2017-06-13 00:00:00 Completed [facility] TDAP 2017-06-13 00:00:00 Completed [facility] TDAP 2017-06-13 00:00:00 Completed [facility] TDAP 2017-06-13 00:00:00 Completed [facility] TDAP 2017-06-13 00:00:00 Completed [facility] TDAP 2017-06-13 00:00:00 Completed Influenza Virus Vaccine Quad IM 3+ YRS 2017-05-23 00:00:00 Completed [facility] Influenza Virus Vaccine Quad IM 3+ YRS 2017-05-23 00:00:00 Completed [facility] Influenza Virus Vaccine Quad IM 3+ YRS 2017-05-23 00:00:00 [facility] [facility] Influenza Virus Vaccine Quad IM 3+ YRS 2017-05-23 00:00:00 Completed [facility] Influenza Virus Vaccine Quad IM 3+ YRS 2017-05-23 00:00:00 Completed [facility] Influenza Virus Vaccine Quad IM 3+ YRS 2017-05-23 00:00:00 Completed [facility] Influenza Virus Vaccine Quad IM 3+ YRS 2017-05-23 00:00:00 Completed [facility] Influenza Virus Vaccine Quad IM 3+ YRS 2017-05-23 00:00:00 Completed [facility] Influenza Virus Vaccine Quad IM 3+ YRS 2017-05-23 00:00:00 Completed [facility] Influenza Virus Vaccine Quad IM 3+ YRS 2017-05-23 00:00:00 Completed [facility] Influenza Virus Vaccine Quad IM 3+ YRS 2017-05-23 00:00:00 Completed [facility] Influenza Virus Vaccine Quad IM 3+ YRS 2017-05-23 00:00:00 Completed [facility] Influenza Virus Vaccine Quad IM 3+ YRS 2017-05-23 00:00:00 Completed [facility] Influenza Virus Vaccine Quad IM 3+ YRS 2017-05-23 00:00:00 Completed [facility] Influenza Virus Vaccine Quad IM 3+ YRS 2017-05-23 00:00:00 Completed [facility] Influenza Virus Vaccine Quad IM 3+ YRS 2017-05-23 00:00:00 Completed [facility] Influenza Virus Vaccine Quad IM 3+ YRS 2017-05-23 00:00:00 Completed [facility] Influenza Virus Vaccine Quad IM 3+ YRS 2017-05-23 00:00:00 Completed [facility] Influenza Virus Vaccine Quad IM 3+ YRS 2017-05-23 00:00:00 Completed [facility] Influenza Virus Vaccine Quad IM 3+ YRS 2017-05-23 00:00:00 Completed [facility] Influenza Virus Vaccine Quad IM 3+ YRS 2017-05-23 00:00:00 Completed [facility] Influenza Virus Vaccine Quad IM 3+ YRS 2017-05-23 00:00:00 Completed [facility] Influenza Virus Vaccine Quad IM 3+ YRS 2017-05-23 00:00:00 Completed [facility] Influenza Virus Vaccine Quad IM 3+ YRS 2017-05-23 00:00:00 Completed [facility] Influenza Virus Vaccine Quad IM 3+ YRS 2017-05-23 00:00:00 Completed [facility] Influenza Virus Vaccine Quad IM 3+ YRS 2017-05-23 00:00:00 Completed [facility] Influenza Virus Vaccine Quad IM 3+ YRS 2017-05-23 00:00:00 Completed [facility] Influenza Virus Vaccine Quad IM 3+ YRS 2017-05-23 00:00:00 Completed [facility] Influenza Virus Vaccine Quad IM 3+ YRS 2017-05-23 00:00:00 Completed [facility] Influenza Virus Vaccine Quad IM 3+ YRS 2017-05-23 00:00:00 Completed [facility] Influenza Virus Vaccine Quad IM 3+ YRS 2017-05-23 00:00:00 Completed [facility] Influenza Virus Vaccine Quad IM 3+ YRS 2017-05-23 00:00:00 Completed [facility] Influenza Virus Vaccine Quad IM 3+ YRS 2017-05-23 00:00:00 Completed [facility] Influenza Virus Vaccine Quad IM 3+ YRS 2017-05-23 00:00:00 Completed [facility] Influenza Virus Vaccine Quad IM 3+ YRS 2017-05-23 00:00:00 Completed [facility] Influenza Virus Vaccine Quad IM 3+ YRS 2017-05-23 00:00:00 Completed [facility] Influenza Virus Vaccine Quad IM 3+ YRS 2017-05-23 00:00:00 Completed [facility] Influenza Virus Vaccine Quad IM 3+ YRS 2017-05-23 00:00:00 Completed [facility] Influenza Virus Vaccine Quad IM 3+ YRS 2017-05-23 00:00:00 Completed [facility] Influenza Virus Vaccine Quad IM 3+ YRS Unknown Completed [facility] TDAP Unknown Completed [facility] Influenza Virus Vaccine Quad IM, Preserv and ABX Free 6 MO-64 YRS (FLUCELVAX) Unknown Completed [facility] Influenza Virus Vaccine Quad IM 3+ YRS Unknown Completed [facility] TDAP Unknown Completed [facility] Influenza Virus Vaccine Quad IM, Preserv and ABX Free 6 MO-64 YRS (FLUCELVAX) Unknown Completed [facility] Influenza Virus Vaccine Quad IM 3+ YRS Unknown Completed [facility] TDAP Unknown Completed [facility] Influenza Virus Vaccine Quad IM, Preserv and ABX Free 6 MO-64 YRS (FLUCELVAX) Unknown Completed [facility] Influenza Virus Vaccine Quad IM 3+ YRS Unknown Completed [facility] TDAP Unknown Completed [facility] Influenza Virus Vaccine Quad IM, Preserv and ABX Free 6 MO-64 YRS (FLUCELVAX) Unknown Completed [facility] Influenza Virus Vaccine Quad IM 3+ YRS Unknown Completed [facility] TDAP Unknown Completed [facility] Influenza Virus Vaccine Quad IM, Preserv and ABX Free 6 MO-64 YRS (FLUCELVAX) Unknown Completed [facility] Influenza Virus Vaccine Quad IM 3+ YRS Unknown Completed [facility] TDAP Unknown Completed [facility] Influenza Virus Vaccine Quad IM, Preserv and ABX Free 6 MO-64 YRS (FLUCELVAX) Unknown Completed [facility] Influenza Virus Vaccine Quad IM 3+ YRS Unknown Completed [facility] TDAP Unknown Completed [facility] Influenza Virus Vaccine Quad IM, Preserv and ABX Free 6 MO-64 YRS (FLUCELVAX) Unknown Completed [facility] Influenza Virus Vaccine Quad IM 3+ YRS Unknown Completed [facility] TDAP Unknown Completed [facility] Influenza Virus Vaccine Quad IM, Preserv and ABX Free 6 MO-64 YRS (FLUCELVAX) Unknown Completed [facility] Influenza Virus Vaccine Quad IM 3+ YRS Unknown Completed [facility] TDAP Unknown Completed [facility] Influenza Virus Vaccine Quad IM, Preserv and ABX Free 6 MO-64 YRS (FLUCELVAX) Unknown Completed [facility] Influenza Virus Vaccine Quad IM 3+ YRS Unknown Completed [facility] TDAP Unknown Completed [facility] Influenza Virus Vaccine Quad IM, Preserv and ABX Free 6 MO-64 YRS (FLUCELVAX) Unknown Completed [facility] Influenza Virus Vaccine Quad IM 3+ YRS Unknown Completed [facility] TDAP Unknown Completed [facility] Influenza Virus Vaccine Quad IM, Preserv and ABX Free 6 MO-64 YRS (FLUCELVAX) Unknown Completed [facility] Influenza Virus Vaccine Quad IM 3+ YRS Unknown Completed [facility] TDAP Unknown Completed [facility] Influenza Virus Vaccine Quad IM, Preserv and ABX Free 6 MO-64 YRS (FLUCELVAX) Unknown Completed [facility] Influenza Virus Vaccine Quad IM 3+ YRS Unknown Completed [facility] TDAP Unknown Completed [facility] Influenza Virus Vaccine Quad IM, Preserv and ABX Free 6 MO-64 YRS (FLUCELVAX) Unknown Completed [facility] Influenza Virus Vaccine Quad IM 3+ YRS Unknown Completed [facility] TDAP Unknown Completed [facility] Influenza Virus Vaccine Quad IM, Preserv and ABX Free 6 MO-64 YRS (FLUCELVAX) Unknown Completed [facility] Influenza Virus Vaccine Quad IM 3+ YRS Unknown Completed [facility] TDAP Unknown Completed [facility] Influenza Virus Vaccine Quad IM, Preserv and ABX Free 6 MO-64 YRS (FLUCELVAX) Unknown Completed [facility] Influenza Virus Vaccine Quad IM 3+ YRS Unknown Completed [facility] TDAP Unknown Completed [facility] Influenza Virus Vaccine Quad IM, Preserv and ABX Free 6 MO-64 YRS (FLUCELVAX) Unknown Completed [facility] Influenza Virus Vaccine Quad IM 3+ YRS Unknown Completed [facility] TDAP Unknown Completed [facility] Influenza Virus Vaccine Quad IM, Preserv and ABX Free 6 MO-64 YRS (FLUCELVAX) Unknown Completed [facility] Influenza Virus Vaccine Quad IM 3+ YRS Unknown Completed [facility] TDAP Unknown Completed [facility] Influenza Virus Vaccine Quad IM, Preserv and ABX Free 6 MO-64 YRS (FLUCELVAX) Unknown Completed [facility] Influenza Virus Vaccine Quad IM 3+ YRS Unknown Completed [facility] TDAP Unknown Completed [facility] Influenza Virus Vaccine Quad IM, Preserv and ABX Free 6 MO-64 YRS (FLUCELVAX) Unknown Completed [facility] Influenza Virus Vaccine Quad IM 3+ YRS Unknown Completed [facility] TDAP Unknown Completed [facility] Influenza Virus Vaccine Quad IM, Preserv and ABX Free 6 MO-64 YRS (FLUCELVAX) Unknown Completed [facility] Vital Signs Vital Name Observation Time Observation Value Comments S ource Systolic blood pressure 2024-07-28 20:33:00 110 mm[Hg] [facility] Diastolic blood pressure 2024-07-28 20:33:00 62 mm[Hg] [facility] Heart rate 2024-07-28 20:33:00 80 /min [facility] Body temperature 2024-07-28 20:33:00 37.11 Coretta [facility] Respiratory rate 2024-07-28 20:33:00 18 /min [facility] Body height 2024-07-28 20:33:00 154.9 cm [facility] Body weight 2024-07-28 20:33:00 52.164 kg [facility] BMI 2024-07-28 20:33:00 21.73 kg/m2 [facility] Oxygen saturation in Arterial blood by Pulse oximetry 2024-07-28 20:33:00 100 /min [facility] Systolic blood pressure 2024-06-03 03:33:00 123 mm[Hg] [facility] Diastolic blood pressure 2024-06-03 03:33:00 88 mm[Hg] [facility] Heart rate 2024-06-03 03:33:00 86 /min [facility] Respiratory rate 2024-06-03 03:33:00 16 /min [facility] Oxygen saturation in Arterial blood by Pulse oximetry 2024-06-03 03:33:00 100 /min [facility] Body temperature 2024-06-03 01:13:00 36.89 Coretta [facility] Body height 2024-06-03 01:13:00 154.9 cm [facility] Body weight 2024-06-03 01:13:00 45.36 kg [facility] BMI 2024-06-03 01:13:00 18.89 kg/m2 [facility] Systolic blood pressure 2023-05-23 19:00:00 103 mm[Hg] [facility] Diastolic blood pressure 2023-05-23 19:00:00 69 mm[Hg] [facility] Heart rate 2023-05-23 19:00:00 59 /min [facility] Body temperature 2023-05-23 19:00:00 36.94 Coretta [facility] Respiratory rate 2023-05-23 19:00:00 18 /min [facility] Body weight 2023-05-23 19:00:00 63.413 kg [facility] BMI 2023-05-23 19:00:00 26.41 kg/m2 [facility] Systolic blood pressure 2023-05-15 05:00:00 113 mm[Hg] [facility] Diastolic blood pressure 2023-05-15 05:00:00 76 mm[Hg] [facility] Heart rate 2023-05-15 05:00:00 67 /min [facility] Respiratory rate 2023-05-15 05:00:00 13 /min [facility] Oxygen saturation in Arterial blood by Pulse oximetry 2023-05-15 05:00:00 99 /min [facility] Body temperature 2023-05-15 04:30:00 36.94 Coretta [facility] Body height 2023-05-15 03:41:00 154.9 cm [facility] Body weight 2023-05-15 03:41:00 63.504 kg [facility] BMI 2023-05-15 03:41:00 26.45 kg/m2 [facility] Systolic blood pressure 2023-05-14 12:30:00 116 mm[Hg] [facility] Diastolic blood pressure 2023-05-14 12:30:00 60 mm[Hg] [facility] Heart rate 2023-05-14 12:30:00 68 /min [facility] Body temperature 2023-05-14 12:30:00 36.89 Coret[place] [facility] Respiratory rate 2023-05-14 12:30:00 18 /min [facility] Oxygen saturation in Arterial blood by Pulse oximetry 2023-05-14 09:21:00 99 /min [facility] Body height 2023-05-13 19:48:00 154.9 cm [facility] Body weight 2023-05-13 19:48:00 63.504 kg [facility] BMI 2023-05-13 19:48:00 26.45 kg/m2 [facility] Systolic blood pressure 2023-05-14 01:59:00 116 mm[Hg] [facility] Diastolic blood pressure 2023-05-14 01:59:00 66 mm[Hg] [facility] Heart rate 2023-05-14 01:59:00 65 /min [facility] Respiratory rate 2023-05-14 01:59:00 8 /min [facility] Oxygen saturation in Arterial blood by Pulse oximetry 2023-05-14 01:59:00 100 /min [facility] Systolic blood pressure 2023-05-14 01:59:00 116 mm[Hg] [facility] Diastolic blood pressure 2023-05-14 01:59:00 66 mm[Hg] [facility] Heart rate 2023-05-14 01:59:00 65 /min [facility] Respiratory rate 2023-05-14 01:59:00 8 /min [facility] Oxygen saturation in Arterial blood by Pulse oximetry 2023-05-14 01:59:00 100 /min [facility] Body temperature 2023-05-13 23:43:00 37 [facility] Body temperature 2023-05-13 23:43:00 37 [facility] Body height 2023-05-13 19:48:00 154.9 cm [facility] Body weight 2023-05-13 19:48:00 63.504 kg [facility] BMI 2023-05-13 19:48:00 26.45 kg/m2 [facility] Body height 2023-05-13 19:48:00 154.9 cm [facility] Body weight 2023-05-13 19:48:00 63.504 kg [facility] BMI 2023-05-13 19:48:00 26.45 kg/m2 [facility] Systolic blood pressure 2023-05-11 00:10:00 110 mm[Hg] [facility] Diastolic blood pressure 2023-05-11 00:10:00 69 mm[Hg] [facility] Heart rate 2023-05-11 00:10:00 70 /min [facility] Body temperature 2023-05-11 00:10:00 37.17 Coret[place] [facility] Respiratory rate 2023-05-11 00:10:00 16 /min [facility] Oxygen saturation in Arterial blood by Pulse oximetry 2023-05-11 00:10:00 96 /min [facility] Body height 2023-05-10 21:04:00 154.9 cm [facility] Body weight 2023-05-10 21:04:00 63.504 kg [facility] BMI 2023-05-10 21:04:00 26.45 kg/m2 [facility] Systolic blood pressure 2023-05-10 20:31:00 107 mm[Hg] [facility] Diastolic blood pressure 2023-05-10 20:31:00 65 mm[Hg] [facility] Heart rate 2023-05-10 20:31:00 69 /min [facility] Body temperature 2023-05-10 20:31:00 36.78 [place] [facility] Respiratory rate 2023-05-10 20:31:00 17 /min [facility] Body height 2023-05-10 20:31:00 154.9 cm [facility] Body weight 2023-05-10 20:31:00 63.594 kg [facility] BMI 2023-05-10 20:31:00 26.49 kg/m2 [facility] Systolic blood pressure 2023-03-15 17:53:00 104 mm[Hg] [facility] Diastolic blood pressure 2023-03-15 17:53:00 58 mm[Hg] [facility] Heart rate 2023-03-15 17:53:00 80 /min [facility] Body temperature 2023-03-15 17:53:00 36.72 Coret[place] [facility] Respiratory rate 2023-03-15 17:53:00 18 /min [facility] Body height 2023-03-15 17:53:00 154.9 cm [facility] Body weight 2023-03-15 17:53:00 59.421 kg [facility] BMI 2023-03-15 17:53:00 24.75 kg/m2 [facility] Oxygen saturation in Arterial blood by Pulse oximetry 2023-03-15 17:53:00 98 /min [facility] Systolic blood pressure 2023-03-04 23:23:00 112 mm[Hg] [facility] Diastolic blood pressure 2023-03-04 23:23:00 59 mm[Hg] [facility] Heart rate 2023-03-04 23:23:00 77 /min [facility] Body temperature 2023-03-04 23:23:00 36.94 C[place] [facility] Body height 2023-03-04 23:23:00 154.9 cm [facility] Body weight 2023-03-04 23:23:00 59.648 kg [facility] BMI 2023-03-04 23:23:00 24.85 kg/m2 [facility] Oxygen saturation in Arterial blood by Pulse oximetry 2023-03-04 23:23:00 95 /min [facility] Oxygen saturation in Arterial blood by Pulse oximetry 2023-03-01 16:55:00 98 /min [facility] Systolic blood pressure 2023-03-01 16:51:00 115 mm[Hg] [facility] Diastolic blood pressure 2023-03-01 16:51:00 69 mm[Hg] [facility] Heart rate 2023-03-01 16:51:00 55 /min [facility] Respiratory rate 2023-03-01 16:51:00 14 /min [facility] Body temperature 2023-03-01 15:40:00 36.11 Coret[place] [facility] Body height 2023-02-22 18:00:00 154.9 cm [facility] Body weight 2023-02-22 18:00:00 58.968 kg [facility] BMI 2023-02-22 18:00:00 24.56 kg/m2 [facility] Oxygen saturation in Arterial blood by Pulse oximetry 2023-03-01 16:55:00 98 /min [facility] Systolic blood pressure 2023-03-01 16:51:00 115 mm[Hg] [facility] Diastolic blood pressure 2023-03-01 16:51:00 69 mm[Hg] [facility] Heart rate 2023-03-01 16:51:00 55 /min [facility] Respiratory rate 2023-03-01 16:51:00 14 /min [facility] Body temperature 2023-03-01 15:40:00 36.11 Coret[place] [facility] Body height 2023-02-22 18:00:00 154.9 cm [facility] Body weight 2023-02-22 18:00:00 58.968 kg [facility] BMI 2023-02-22 18:00:00 24.56 kg/m2 [facility] Systolic blood pressure 2023-02-03 13:22:00 105 mm[Hg] [facility] Diastolic blood pressure 2023-02-03 13:22:00 65 mm[Hg] [facility] Heart rate 2023-02-03 13:22:00 76 /min [facility] Body height 2023-02-03 13:22:00 154.9 cm [facility] 2023-02-03 13:22:00 60.328 kg [facility] BMI 2023-02-03 13:22:00 25.13 kg/m2 [facility] Oxygen saturation in Arterial blood by Pulse oximetry 2023-02-03 13:22:00 99 /min [facility] Systolic blood pressure 2023-01-15 00:33:00 118 mm[Hg] [facility] Diastolic blood pressure 2023-01-15 00:33:00 74 mm[Hg] [facility] Heart rate 2023-01-15 00:33:00 66 /min [facility] Body temperature 2023-01-15 00:33:00 37 [place] [facility] Respiratory rate 2023-01-15 00:33:00 16 /min [facility] Body height 2023-01-15 00:33:00 154.9 cm [facility] Body weight 2023-01-15 00:33:00 60.283 kg [facility] BMI 2023-01-15 00:33:00 25.11 kg/m2 [facility] Oxygen saturation in Arterial blood by Pulse oximetry 2023-01-15 00:33:00 98 /min [facility] Systolic blood pressure 2022-12-29 19:45:00 109 mm[Hg] [facility] Diastolic blood pressure 2022-12-29 19:45:00 70 mm[Hg] [facility] Heart rate 2022-12-29 19:45:00 68 /min [facility] Body temperature 2022-12-29 19:45:00 36.89 [place] [facility] Respiratory rate 2022-12-29 19:45:00 18 /min [facility] Body height 2022-12-29 19:45:00 154.9 cm [facility] Body weight 2022-12-29 19:45:00 60.328 kg [facility] BMI 2022-12-29 19:45:00 25.13 kg/m2 [facility] Systolic blood pressure 2022-11-12 15:34:00 104 mm[Hg] [facility] Diastolic blood pressure 2022-11-12 15:34:00 67 mm[Hg] [facility] Heart rate 2022-11-12 15:34:00 62 /min [facility] Body temperature 2022-11-12 15:34:00 37.11 Coret[place] [facility] Body height 2022-11-12 15:34:00 154.9 cm [facility] Body weight 2022-11-12 15:34:00 63.05 kg [facility] BMI 2022-11-12 15:34:00 26.26 kg/m2 [facility] Systolic blood pressure 2022-09-17 17:01:00 107 mm[Hg] [facility] Diastolic blood pressure 2022-09-17 17:01:00 66 mm[Hg] [facility] Heart rate 2022-09-17 17:01:00 65 /min [facility] Respiratory rate 2022-09-17 17:01:00 18 /min [facility] Body height 2022-09-17 17:01:00 154.9 cm [facility] Body weight 2022-09-17 17:01:00 68.04 kg [facility] BMI 2022-09-17 17:01:00 28.34 kg/m2 [facility] [facility] Systolic blood pressure 2022-07-07 16:50:00 96 mm[Hg] [facility] Diastolic blood pressure 2022-07-07 16:50:00 63 mm[Hg] [facility] Heart rate 2022-07-07 16:50:00 64 /min Un[facility] Body temperature 2022-07-07 16:50:00 36.72 Coretta [facility] Respiratory rate 2022-07-07 16:50:00 18 /min [facility] Body height 2022-07-07 16:50:00 154.9 cm [facility] Body weight 2022-07-07 16:50:00 70.308 kg [facility] BMI 2022-07-07 16:50:00 29.29 kg/m2 [facility] Systolic blood pressure 2022-06-09 15:03:00 98 mm[Hg] [facility] Diastolic blood pressure 2022-06-09 15:03:00 65 mm[Hg] [facility] Heart rate 2022-06-09 15:03:00 79 /min [facility] Body temperature 2022-06-09 15:03:00 36.44 Coretta [facility] Respiratory rate 2022-06-09 15:03:00 18 /min [facility] Body height 2022-06-09 15:03:00 154.9 cm [facility] Body weight 2022-06-09 15:03:00 71.215 kg [facility] BMI 2022-06-09 15:03:00 29.66 kg/m2 [facility] Systolic blood pressure 2022-05-12 18:02:00 101 mm[Hg] [facility] Diastolic blood pressure 2022-05-12 18:02:00 67 mm[Hg] [facility] Heart rate 2022-05-12 18:02:00 53 /min Un[facility] Body temperature 2022-05-12 18:02:00 36.61 Coretta [facility] Respiratory rate 2022-05-12 18:02:00 16 /min [facility] Body height 2022-05-12 18:02:00 154.9 cm [facility] Body weight 2022-05-12 18:02:00 73.936 kg [facility] BMI 2022-05-12 18:02:00 30.80 kg/m2 [facility] Systolic blood pressure 2022-04-22 12:18:00 106 mm[Hg] [facility] Diastolic blood pressure 2022-04-22 12:18:00 55 mm[Hg] [facility] Heart rate 2022-04-22 12:18:00 53 /min [facility] Body temperature 2022-04-22 12:18:00 36.5 Coretta [facility] Respiratory rate 2022-04-22 12:18:00 16 /min [facility] Oxygen saturation in Arterial blood by Pulse oximetry 2022-04-22 09:25:00 99 /min [facility] Body height 2022-04-20 08:51:00 154.9 cm [facility] Body weight 2022-04-20 08:51:00 87.272 kg [facility] BMI 2022-04-20 08:51:00 36.35 kg/m2 [facility] Systolic blood pressure 2022-04-14 15:06:00 106 mm[Hg] [facility] Diastolic blood pressure 2022-04-14 15:06:00 70 mm[Hg] [facility] Heart rate 2022-04-14 15:06:00 86 /min [facility] Body temperature 2022-04-14 15:06:00 36.78 Coretta [facility] Respiratory rate 2022-04-14 15:06:00 18 /min [facility] Body height 2022-04-14 15:06:00 154.9 cm [facility] Body weight 2022-04-14 15:06:00 86.183 kg [facility] BMI 2022-04-14 15:06:00 35.90 kg/m2 [facility] Systolic blood pressure 2022-04-08 15:56:00 106 mm[Hg] [facility] Diastolic blood pressure 2022-04-08 15:56:00 68 mm[Hg] [facility] Heart rate 2022-04-08 15:56:00 65 /min [facility] Body temperature 2022-04-08 15:56:00 36.78 Coretta [facility] Respiratory rate 2022-04-08 15:56:00 18 /min [facility] Body height 2022-04-08 15:56:00 154.9 cm [facility] Body weight 2022-04-08 15:56:00 84.369 kg [facility] BMI 2022-04-08 15:56:00 35.14 kg/m2 [facility] Systolic blood pressure 2022-04-01 16:10:00 122 mm[Hg] [facility] Diastolic blood pressure 2022-04-01 16:10:00 71 mm[Hg] [facility] Heart rate 2022-04-01 16:10:00 78 /min [facility] Body temperature 2022-04-01 16:10:00 36.78 Coretta [facility] Respiratory rate 2022-04-01 16:10:00 18 /min [facility] Body height 2022-04-01 16:10:00 154.9 cm [facility] Body weight 2022-04-01 16:10:00 84.278 kg [facility] BMI 2022-04-01 16:10:00 35.11 kg/m2 [facility] Procedures Procedure Date / Time Performed Performing Clinician Source RAPID STREP SCREEN FOR GROUP A 2024-06-03 02:57:00 Tristan Troncoso [facility] POCT TEST 2024-06-03 02:19:00 Shaun Troncoso [facility] URINALYSIS 2024-06-03 02:05:[facility] - WET PREP 2024-06-03 02:05:00 Tristan Troncoso [facility] POCT TEST 2023-05-23 19:07:00 Carolynn Esparza [facility] CT ABDOMEN PELVIS W CONTRAST 2023-05-15 04:14:11 Alyson Michel [facility] COMP. METABOLIC PANEL ([id number]) 2023-05-15 03:55:00 Alyson Michel [facility] CBC WITH DIFF 2023-05-15 03:55:00 Alyson Michel [facility] NOTICE OF PRIVACY PRACTICES 2023-05-15 03:39:09 Doctor Unassigned, [place] [facility] CONSENT/REFUSAL FOR DIAGNOSIS AND TREATMENT 2023-05-15 03:35:18 Doctor Unassigned, [place] [facility] CBC WITH DIFF 2023-05-14 10:11:00 Kalina Haro [facility] CBC WITH DIFF 2023-05-14 10:11:00 Jackie Harosol [facility] CBC WITH DIFF 2023-05-14 10:11:00 Kalina Haro [facility] EMERGENCY SERVICES AGREEMENTS AND AUTHORIZATIONS 2023-05-14 05:01:00 Doctor Unassigned, [place] [facility] SURGICAL PATHOLOGY EXAM 2023-05-14 00:46:00 Kalina Pollack [facility] LAPAROSCOPIC SALPINGECTOMY 2023-05-13 23:47:00 Patience Lyon [facility] INTRAUTERINE DEVICE REMOVAL 2023-05-13 23:47:00 Estrellita [facility] LAPAROSCOPIC SALPINGECTOMY 2023-05-13 23:47:00 Patience Lyon [facility] INTRAUTERINE DEVICE REMOVAL 2023-05-13 23:47:00 Estrellita [facility] HB ABO GROUPING 2023-05-13 22:52:00 Alyson Michel [facility] HB ABO GROUPING 2023-05-13 22:52:00 Alyson Michel [facility] HB ABO GROUPING 2023-05-13 22:52:00 Alyson Michel [facility] COMP. METABOLIC PANEL ([id number]) 2023-05-13 20:27:00 Alyson Michel [facility] TOTAL BETA HCG ASSAY 2023-05-13 20:27:00 Aidan Michel [facility] CBC WITH DIFF 2023-05-13 20:27:00 Alyson Michel [facility] COMP. METABOLIC PANEL ([id number]) 2023-05-13 20:27:00 Alyson Michel [facility] TOTAL BETA HCG ASSAY 2023-05-13 20:27:00 Aidan Michel [facility] CBC WITH DIFF 2023-05-13 20:27:00 Alyson Michel [facility] COMP. METABOLIC PANEL ([id number]) 2023-05-13 20:27:00 Alyson Michel [facility] TOTAL BETA HCG ASSAY 2023-05-13 20:27:00 Aidan Michel [facility] CBC WITH DIFF 2023-05-13 20:27:00 Alyson Michel [facility] CONSENT/REFUSAL FOR DIAGNOSIS AND TREATMENT 2023-05-13 19:34:56 Doctor Unassigned, [place] [facility] CONSENT/REFUSAL FOR DIAGNOSIS AND TREATMENT 2023-05-13 19:34:56 Doctor Unassigned, [place] [facility] CONSENT/REFUSAL FOR DIAGNOSIS AND TREATMENT 2023-05-13 19:34:56 Doctor Unassigned, [place] [facility] US FIRST TRIMESTER LESS THAN 14 WEEKS WITH TRANSVAGINAL 2023-05-13 18:58:29 Carolynn Esparza [facility] HOSPITAL ADMISSION 2023-05-13 05:01:00 Doctor Un assigned, [place] [facility] FIRST TRIMESTER LESS THAN 14 WEEKS WITH TRANSVAGINAL 2023-05-10 22:00:00 Kenny Finley [facility] US OB TRANSVAGINAL 2023-05-10 21:37:34 Carolynn Esparza [facility] COMP. METABOLIC PANEL ([id number]) 2023-05-10 21:24:00 Kenny Finley [facility] TOTAL BETA HCG ASSAY 2023-05-10 21:24:00 Kulwinder Finley [facility] CBC WITH DIFF 2023-05-10 21:24:00 Kenny Finley [facility] HB ABO GROUPING 2023-05-10 21:24:00 Kenny Finley [facility] CONSENT/REFUSAL FOR DIAGNOSIS AND TREATMENT 2023-05-10 20:57:33 Doctor Unassigned, [place] [facility] POCT TEST 2023-05-10 00:00:00 Carolynn Esparza [facility] POCT URINALYSIS W/O SPECIFIC GRAVITY 2023-05-10 00:00:00 Carolynn Esparza [facility] LAPAROSCOPIC CHOLECYSTECTOMY 2023-03-01 13:45:00 Mily Delgadillo [facility] POCT TEST 2023-03-01 13:30:00 Eduard Delgadillo [facility] POCT TEST 2023-03-01 13:30:00 Eduard Delgadillo [facility] DAY SURGERY - ADC 2023-03-01 05:01:00 Doctor Enedina ssigned, [place] [facility] DISCLOSURE AND CONSENT, MEDICAL AND SURGICAL PROCEDURES 2023-02-03 05:01:00 Doctor Unassigned, [place] [facility] DISCLOSURE AND CONSENT, MEDICAL AND SURGICAL PROCEDURES 2023-02-03 05:01:00 Doctor Unassigned, [place] [facility] US ABDOMEN LIMITED 2023-01-25 20:54:06 Marley Valencia [facility] HSV 1&2, VZV NAAT 2023-01-15 00:53:00 Brianne Britton [facility] CONSENT/REFUSAL FOR DIAGNOSIS AND TREATMENT 2022-11-12 15:24:48 Doctor Unassigned, [place] [facility] POCT TEST 2022-11-12 00:00:[address] [facility] PATIENT FINANCIAL POLICY 2022-09-17 16:34:46 Doctor Unassigned, [place] [facility] POCT TEST 2022-06-09 15:12:00 Carolynn Esparza [facility] RN ORTHOPAEDICS CLINIC ULTRASOUND 2022-06-09 06:01:00 Doc tor Unassigned, [place] [facility] CBC WITH DIFF 2022-04-21 09:07:00 Carolynn Esparza [facility] CENTRAL NEURAXIAL BLOCK 2022-04-20 14:22:48 Karen Yu [facility] HB ABO GROUPING 2022-04-20 09:20:00 Carolynn Esparza [facility] RHO (D) IMMUNE GLOBULIN 2022-04-20 09:20:00 Carolynn Esparza [facility] CONSENT/REFUSAL FOR DIAGNOSIS AND TREATMENT 2022-04-19 13:13:18 Doctor Unassigned, [place] [facility] ASSIGNMENT OF BENEFITS 2022-04-19 13:12:53 Docto r Unassigned, [place] [facility] POCT URINALYSIS W/O SPECIFIC GRAVITY 2022-04-14 00:00:00 Carolynn Esparza [facility] POCT URINALYSIS W/O SPECIFIC GRAVITY 2022-04-08 00:00:00 Brianne Britton [facility] >14 WEEKS US LIMITED 2022-04-01 17:17:35 Carolynn Esparza [facility] DSU PRE-OP 2022-04-01 05:01:00 Doctor Unass igned, [place] [facility] POCT URINALYSIS W/O SPECIFIC GRAVITY 2022-04-01 00:00:00 Carolynn Esparza [facility] AUTHORIZATION TO RELEASE PHI TO [facility] 2021-10-14 05:01:00 Doctor Unassigned, [place] [facility] Encounters Start Date/Time End Date/Time Encounter Type Admission Type Attending Clinicians Care Facility Care Department Encounter ID Source 2022-01-29 21:39:50 Outpatient X [facility] TEENA [id number] [facility] 2021-05-18 22:00:59 Emergency [facility] [id number] [facility] 2021-05-16 09:26:29 Emergency [facility] [id number] [facility] 2021-10-14 00:00:00 2024-09-01 02:49:25 Orders Only Orin Sheehan Evelyn [facility] 1..840.114 350.1.13.10 4.2.7.2.686 [id number] 134 [id number] [facility] 2024-07-28 14:37:00 2024-07-28 15:20:00 Emergency X ALYSON MICHEL SANDRA [facility] ERT [id number] [facility] 2024-07-28 14:37:00 2024-07-28 15:20:00 Emergency Alyson Michel [facility] 1.2840.114 350.1.13.10 4.2.7.2.686 [id number] [facility] 2024-05-10 00:00:00 2024-06-16 18:27:10 Patient Secure Msg Doctor Unassigned, [place] Doctor Unassigned, [place] [facility] 1..840.114 350.1.13.10 4.2.7.2.686 [id number] 134 [id number] [facility] 2024-06-02 19:20:00 2024-06-02 22:15:00 Emergency Tristan Troncoso [facility] 1.2840.114 350.1.13.10 4.2.7.2.686 [id number] [facility] 2024-06-02 19:20:00 2024-06-02 22:15:00 Emergency X , TRISTAN TRONCOSO, TRISTAN [facility] ERT [id number] [facility] 2024-05-02 00:00:00 2024-06-02 18:19:25 Patient Secure Msg Doctor Unassigned, [place] Doctor Unassigned, [place] [facility] 1.2.840.114 350.1.13.10 4.2.7.2.686 [id number] 134 [id number] [facility] 2024-04-02 11:30:00 2024-04-02 11:30:00 Outpatient R DONALD MCGRATH [facility] [id number] [facility] 2023-12-15 13:30:00 2023-12-15 13:30:00 Outpatient R CAROLYNN ESPARZA [facility] [id number] [facility] 2023-10-28 13:00:00 2023-10-28 13:00:00 Outpatient R DONALD MCGRATH [facility] [id number] [facility] 2023-09-23 10:00:00 2023-09-23 10:00:00 Outpatient R NEMO PRADO CHERYAL [facility] [id number] [facility] 2023-09-08 10:00:00 2023-09-08 10:00:00 Outpatient R CAROLYNN ESPARZA [facility] [id number] [facility] 2023-09-05 00:00:00 2023-09-05 00:00:00 Patient Secure Msg Brianne Britton [facility] 1.2.840.114 350.1.13.10 4.2.7.2.686 [id number] 134 [id number] [facility] 2023-06-11 00:00:00 2023-06-11 00:00:00 Patient Secure Msg Esparza, Carolynn [facility] 1..840.114 350.1.13.10 4.2.7.2.686 [id number] [facility] 2023-05-23 13:30:00 2023-05-23 13:45:00 Core Drier Visit 2, Adc Lab Carolynn Esparza [facility] 1..840.114 350.1.13.10 4.2.7.2.686 [id number] [facility] 2023-05-23 13:00:00 2023-05-23 13:16:39 Outpatient R CAROLYNN ESPARZA [facility] [id number] [facility] 2023-05-23 13:00:00 2023-05-23 13:16:39 Routine Visit Carolynn Esparza [facility] 1..840.114 350.1.13.10 4.2.7.2.686 [id number] [facility] 2023-05-14 22:43:00 2023-05-15 00:39:00 Emergency X ALYSON MICHEL [facility] ERT [id number] [facility] 2023-05-14 22:43:00 2023-05-15 00:39:00 Emergency Alyson Michel [facility] 1.840.114 350.1.13.10 4.2.7.2.686 [id number] [facility] 2023-05-13 14:52:00 2023-05-14 09:30:00 Outpatient X KALINA MOLINA MARISOL [facility] TEENA [id number] [facility] 2023-05-13 14:52:00 2023-05-14 09:30:00 Emergency Alyson Michel sKalina [facility] 1..840.114 350.1.13.10 4.2.7.2.686 [id number] [facility] 2023-05-13 19:00:00 2023-05-13 20:59:00 Surgery Kalina Molina [facility] 1.2840.114 350.1.13.10 4.2.7.2.686 [id number] [facility] 2023-05-13 13:19:24 2023-05-13 14:51:00 Outpatient R CAROLYNN ESPARZA [facility] [id number] [facility] 2023-05-13 13:00:00 2023-05-13 14:51:00 Hospital Encounter Carolynn Esparza [facility] 1.2840.114 350.1.13.10 4.2.7.2.686 [id number] [facility] 2023-05-12 13:15:00 2023-05-12 13:30:00 Core Drier Visit 2, Adc Lab Carolynn Esparza [facility] 1.2840.114 350.1.13.10 4.2.7.2.686 [id number] [facility] 2023-05-12 13:15:00 2023-05-12 13:26:14 Outpatient R CAROLYNN ESPARZA [facility] [id number] [facility] 2023-05-12 00:00:00 2023-05-12 00:00:00 Telephone Carolynn Esparza [facility] 1.2840.114 350.1.13.10 4.2.7.2.686 [id number] 134 [id number] [facility] 2023-05-12 00:00:00 2023-05-12 00:00:00 Case Management Carolynn Esparza [facility] 1.2840.114 350.1.13.10 4.2.7.2.686 [id number] [facility] 2023-05-12 00:00:00 2023-05-12 00:00:00 Telephone Carolynn Esparza [facility] 1.2.840.114 350.1.13.10 4.2.7.2.686 [id number] [facility] 2023-05-12 00:00:00 2023-05-12 00:00:00 Patient Secure Msg Doctor Unassigned, [place] [facility] 1.2.840.114 350.1.13.10 4.2.7.2.686 [id number] [facility] 2023-05-10 16:05:00 2023-05-10 19:18:00 Emergency X KENNY FINLEY [facility] ERT [id number] [facility] 2023-05-10 16:05:00 2023-05-10 19:18:00 Emergency Kenny Finley [facility] 1.2.840.114 350.1.13.10 4.2.7.2.686 [id number] [facility] 2023-05-10 15:30:00 2023-05-10 16:25:07 Outpatient R ISAIAS CAROLYNN [facility] [id number] [facility] 2023-05-10 15:30:00 2023-05-10 16:25:07 Office Visit [facility] 1.2.840.114 350.1.13.10 4.2.7.2.686 [id number] 134 [id number] [facility] 2023-03-28 08:30:00 2023-03-28 08:30:00 Outpatient R MILY DELGADILLO [facility] [id number] [facility] 2023-03-25 00:00:00 2023-03-25 00:00:00 Patient Secure Msg Doctor Unassigned, [place] [facility] 1.2.840.114 350.1.13.10 4.2.7.2.686 [id number] [facility] 2023-03-15 13:30:00 2023-03-15 13:30:00 Office Visit Razia Pitts [place] [facility] 1.2.840.114 350.1.13.10 4.2.7.2.686 [id number] [facility] 2023-03-15 13:30:00 2023-03-15 13:29:16 Outpatient R MILY DELGADILLO [facility] [id number] [facility] 2023-03-13 00:00:00 2023-03-13 00:00:00 Patient Secure Msg Tobi Brianne [facility] 1.2.840.114 350.1.13.10 4.2.7.2.686 [id number] [facility] 2023-03-04 18:00:00 2023-03-04 18:20:00 Urgent Care Brianne Britton [facility] 1.2.840.114 350.1.13.10 4.2.7.2.686 [id number] [facility] 2023-03-04 18:00:00 2023-03-04 18:00:00 Outpatient R TOBI [facility] [id number] [facility] 2023-03-04 00:00:00 2023-03-04 00:00:00 Patient Secure Msg Tobi [facility] 1.2.840.114 350.1.13.10 4.2.7.2.686 [id number] [facility] 2023-03-01 09:20:00 2023-03-01 12:29:00 Surgery Mily Delgadillo [facility] 1.2.840.114 350.1.13.10 4.2.7.2.686 [id number] [facility] 2023-03-01 08:24:00 2023-03-01 11:55:00 Outpatient R MILY DELGADILLO [facility] KATERINA [id number] [facility] 2023-03-01 08:24:00 2023-03-01 11:55:00 Hospital Encounter Mily Delgadillo [facility] 1.2.840.114 350.1.13.10 4.2.7.2.686 [id number] [facility] 2023-02-21 00:00:00 2023-02-21 00:00:00 Patient Secure Msg Mily Delgadillo [facility] 1.2.840.114 350.1.13.10 4.2.7.2.686 [id number] [facility] 2023-02-18 00:00:00 2023-02-18 00:00:00 Patient Secure Msg Tobi [facility]ILD[facility] 1.2.840.114 350.1.13.10 4.2.7.2.686 [id number] [facility] 2023-02-17 00:00:00 2023-02-17 00:00:00 Patient Secure Msg Tobi [facility]ILD[facility] 1.2.840.114 350.1.13.10 4.2.7.2.686 [id number] [facility] 2023-02-03 08:30:00 2023-02-03 10:56:39 Outpatient R MILY DELGADILLO [facility] [id number] [facility] 2023-02-03 08:30:00 2023-02-03 10:56:39 Office Visit M[facility] 1.2.840.114 350.1.13.10 4.2.7.2.686 [id number] [facility] 2023-01-29 00:00:00 2023-01-29 00:00:00 Telephone Marley Valencia Elyssa [facility] 1.2.840.114 350.1.13.10 4.2.7.2.686 [id number] [facility] 2023-01-26 00:00:00 2023-01-26 00:00:00 Patient Secure Brianne Duff [facility] 1.2.840.114 350.1.13.10 4.2.7.2.686 [id number] [facility] 2023-01-26 00:00:00 2023-01-26 00:00:00 Telephone Annie Marley Eylssa [facility] 1.2.840.114 350.1.13.10 4.2.7.2.686 [id number] [facility] 2023-01-25 15:19:29 2023-01-25 23:59:00 Outpatient R MARLEY VALENCIA [facility] [id number] [facility] 2023-01-25 15:19:29 2023-01-25 23:59:00 Hospital Encounter Marley Valencia [facility] 1.2.840.114 350.1.13.10 4.2.7.2.686 [id number] [facility] 2023-01-15 00:00:00 2023-01-15 00:00:00 Patient Secure Msg Brianne Britton [facility] 1.2.840.114 350.1.13.10 4.2.7.2.686 [id number] [facility] 2023-01-14 19:20:00 2023-01-14 20:53:05 Outpatient R BRIANNE BRITTON [facility] [id number] [facility] 2023-01-14 19:20:00 2023-01-14 20:53:05 Urgent Care Brianne Britton Unknown, Attending [facility] 1.2.840.114 350.1.13.10 4.2.7.2.686 [id number] [facility] 2023-01-12 00:00:00 2023-01-12 00:00:00 Patient Secure Msg Brianne Britton [facility] 1.2.840.114 350.1.13.10 4.2.7.2.686 [id number] [facility] 2023-01-03 00:00:00 2023-01-03 00:00:00 Refill AnnieCristo bryanevaristo Bergeron [facility] HEALTH YULIANA?[facility] MEDICAL OFFICE BUILDING 1.2.840.114 350.1.13.10 4.2.7.2.686 [id number] 044 [id number] [facility] 2023-01-02 00:00:00 2023-01-02 00:00:00 Patient Secure Msg Dione Valenciae A FORMERLY [facility] MEDICAL OFFICE BUILDING 1.2.840.114 350.1.13.10 4.2.7.2.686 [id number] [id number] [facility] 2022-12-30 00:00:00 2022-12-30 00:00:00 Case Management Mikkian, [facility] MEDICAL OFFICE BUILDING 1.84114 350.1.13.10 4.2.7.2.686 [id number] [facility] 2022-12-29 15:15:00 2022-12-29 15:20:41 Outpatient R BRIANNE BRITTON [facility] [id number] [facility] 2022-12-29 15:15:00 2022-12-29 15:20:41 Office Visit Brianne Britton [facility] 1.84.114 350.1.13.10 4.2.7.2.686 [id number] 134 [id number] [facility] 2022-12-10 00:00:00 2022-12-10 00:00:00 Outpatient R MARLEY VALENCIA [facility] [id number] [facility] 2022-11-24 00:00:00 2022-11-24 00:00:00 Telephone Marley Valencia [facility] MEDICAL OFFICE BUILDING 1.84.114 350.1.13.10 4.2.7.2.686 [id number] 044 [id number] [facility] 2022-11-12 10:30:00 2022-11-12 11:14:36 Outpatient R MARLEY VALENCIA [facility] [id number] [facility] 2022-11-12 10:30:00 2022-11-12 11:14:36 Office Visit Marley Valencia Elsysa [facility] MEDICAL OFFICE BUILDING 1.84.114 350.1.13.10 4.2.7.2.686 [id number] 044 [id number] [facility] 2022-11-12 00:00:00 2022-11-12 00:00:00 Orders Only Doctor Unassigned, [place] [facility] 1..114 350.1.13.10 4.2.7.2.686 [id number] [id number] [facility] 2022-11-04 09:30:00 2022-11-04 09:45:00 Core Drier Visit 2, Adc Lab Johan Nemo [facility] 1.0.114 350.1.13.10 4.2.7.2.686 [id number] [facility] 2022-11-04 09:30:00 2022-11-04 09:30:00 Outpatient R JOHAN NEMO DOWELL [facility] [id number] [facility] 2022-11-02 10:30:00 2022-11-02 10:30:00 Outpatient R [facility] [id number] [facility] 2022-10-14 11:00:00 2022-10-14 11:00:00 Outpatient R [facility] [id number] [facility] 2022-09-20 09:15:00 2022-09-20 09:15:00 Outpatient R JOHAN NEMO DOWELL [facility] [id number] [facility] 2022-09-17 10:30:00 2022-09-17 11:21:57 Outpatient R JOHAN NEMO DOWELL [facility] [id number] [facility] 2022-09-17 10:30:00 2022-09-17 11:21:57 Office Visit Nemo Prado [facility] 1..114 350.1.13.10 4.2.7.2.686 [id number] 134 [id number] [facility] 2022-09-17 00:00:00 2022-09-17 00:00:00 Orders Only Doctor Unassigned, [place] [facility] 1.0.114 350.1.13.10 4.2.7.2.686 [id number] [id number] [facility] 2022-09-10 00:00:00 2022-09-10 00:00:00 Pre Visit Outreach Nell Chen 1.840.114 350.1.13.10 4.2.7.2.686 [id number] [facility] 2022-07-15 10:30:00 2022-07-15 10:30:00 Outpatient R BRIANNE BRITTON [facility] [id number] [facility] 2022-07-07 10:45:00 2022-07-07 11:19:46 Outpatient R CAROLYNN ESPARZA [facility] [id number] [facility] 2022-07-07 10:45:00 2022-07-07 11:19:46 Office Visit Carolynn Esparza [facility] 1.840.114 350.1.13.10 4.2.7.2.686 [id number] 134 [id number] [facility] 2022-06-09 09:00:00 2022-06-09 10:13:16 Outpatient R CAROLYNN ESPARZA [facility] [id number] [facility] 2022-06-09 09:00:00 2022-06-09 10:13:16 Office Visit Carolynn Esparza [facility] 1.840.114 350.1.13.10 4.2.7.2.686 [id number] [facility] 2022-06-09 00:00:00 2022-06-09 00:00:00 Orders Only Doctor Unassigned, [place] [facility] 1.840.114 350.1.13.10 4.2.7.2.686 [id number] [facility] 2022-05-12 13:00:00 2022-05-12 13:20:00 Outpatient R CAROLYNN ESPARZA [facility] [id number] [facility] 2022-05-12 13:00:00 2022-05-12 13:20:00 Routine Visit Carolynn Esparza [facility] BUILDING 1.2.840.114 350.1.13.10 4.2.7.2.686 [id number] 134 [id number] [facility] 2022-04-20 03:41:00 2022-04-22 09:40:00 Hospital Encounter Carolynn Esparza [facility] 1.2.840.114 350.1.13.10 4.2.7.2.686 [id number] 083 [id number] [facility] 2022-04-20 08:56:00 2022-04-20 18:22:00 Anesthesia Event Ana LiliafrankLivan Jeffrey S [facility] 1.2.840.114 350.1.13.10 4.2.7.2.686 [id number] 083 [id number] [facility] 2022-04-20 08:47:11 2022-04-20 08:47:11 Anesthesia Event Livan Yu [facility] 1.2.840.114 350.1.13.10 4.2.7.2.686 [id number] 083 [id number] [facility] 2022-04-19 08:30:00 2022-04-19 08:45:00 Core Drier Visit Pob, Adc Lab Main Carolynn Esparza [facility] BUILDING 1.2.840.114 350.1.13.10 4.2.7.2.686 [id number] 353 [id number] [facility] 2022-04-19 08:00:00 2022-04-19 08:15:00 Laboratory Only Only, Adc Test Carolynn Esparza [facility] 1.2.840.114 350.1.13.10 4.2.7.2.686 [id number] 353 [id number] [facility] 2022-04-19 08:00:00 2022-04-19 08:00:00 [facility] [id number] [facility] 2022-04-19 08:00:00 2022-04-19 08:00:00 Outpatient R CAROLYNN ESPARZA [facility] [id number] [facility] 2022-04-14 10:00:00 2022-04-14 10:15:00 Routine Visit Carolynn Esparza [facility] BUILDING 1.2.840.114 350.1.13.10 4.2.7.2.686 [id number] 134 [id number] [facility] 2022-04-14 10:00:00 2022-04-14 10:00:00 [facility] [id number] [facility] 2022-04-09 10:00:00 2022-04-09 10:15:00 Core Drier Visit 2, Adc Lab Carolynn Esparza [facility] BUILDING 1.2.840.114 350.1.13.10 4.2.7.2.686 [id number] 353 [id number] [facility] 2022-04-09 10:00:00 2022-04-09 10:00:00 Outpatient R CAROLYNN ESPARZA [facility] [id number] [facility] 2022-04-08 10:30:00 2022-04-08 11:20:01 Outpatient R TOBI BRIANNE [facility] [id number] [facility] 2022-04-08 10:30:00 2022-04-08 11:20:01 Routine Visit Tobi [facility] BUILDING 1.2.840.114 350.1.13.10 4.2.7.2.686 [id number] 134 [id number] [facility] 2022-04-08 11:15:00 2022-04-08 11:15:00 Outpatient R BRIANNE BRITTON [facility] [id number] [facility] 2022-04-01 11:00:00 2022-04-01 11:54:28 Outpatient R CAROLYNN ESPARZA [facility] [id number] [facility] 2022-04-01 11:00:00 2022-04-01 11:54:28 Routine Visit Esparza Carolynn Naga [facility] BUILDING 1..840.114 350.1.13.10 4.2.7.2.686 [id number] 134 [id number] [facility] 2022-04-01 11:00:00 2022-04-01 11:54:28 Outpatient R CAROLYNN ESPARZA [facility] [id number] [facility] 2022-04-01 00:00:00 2022-04-01 00:00:00 Orders Only Doctor Unassigned, [place] [facility] 1..840.114 350.1.13.10 4.2.7.2.686 [id number] [id number] [facility] 2022-03-25 12:00:00 2022-03-25 12:52:58 Outpatient R WILD GIDEON [facility] [id number] [facility] 2022-03-25 12:00:00 2022-03-25 12:52:58 Urgent Care Gideon Rome [facility]?JACEK RESENDEZ MEDICAL OFFICE BUILDING 1..840.114 350.1.13.10 4.2.7.2.686 [id number] [facility] 2022-03-25 11:00:00 2022-03-25 11:32:10 Routine Visit Brianne Britton [facility] BUILDING 1..840.114 350.1.13.10 4.2.7.2.686 [id number] 134 [id number] [facility] 2022-03-11 11:15:00 2022-03-11 12:07:16 Routine Visit Carolynn Esp[facility] BUILDING 1..840.114 350.1.13.10 4.2.7.2.686 [id number] 134 [id number] [facility] 2022-03-11 11:15:00 2022-03-11 12:07:16 Outpatient R CAROLYNN ESPARZA [facility] [id number] [facility] 2022-03-09 13:30:00 2022-03-09 14:15:00 Core Drier Visit 2, [facility] Us Room Lexi Lesly Laguerre [facility] 1.840.114 350.1.13.10 4.2.7.2.686 [id number] [facility] 2022-03-09 13:30:00 2022-03-09 13:30:00 Outpatient P LESLY SHIPMAN [facility] [id number] [facility] 2022-03-01 08:45:00 2022-03-01 08:45:00 Outpatient P [facility] [id number] [facility] 2022-02-24 00:00:00 2022-02-24 00:00:00 Telephone Carolynn Esparza [facility] BUILDING 1..840.114 350.1.13.10 4.2.7.2.686 [id number] 134 [id number] [facility] 2022-02-23 16:15:00 2022-02-23 16:46:49 [facility] [id number] [facility] 2022-02-23 16:15:00 2022-02-23 16:46:49 Routine Visit Brian[facility] Britt[facility] BUILDING 1.2.840.114 350.1.13.10 4.2.7.2.686 [id number] 134 [id number] [facility] 2022-02-23 00:00:00 2022-02-23 00:00:00 Orders Only Doctor Unassigned, [place] [facility] 1.2.840.114 350.1.13.10 4.2.7.2.686 [id number] [id number] [facility] 2022-02-16 16:00:00 2022-02-16 16:00:00 Outpatient BRIANNE NGUYỄN [facility] [id number] [facility] 2022-02-08 00:00:00 2022-02-08 00:00:00 Telephone Tuliotaylorshannon [facility] 1.2.840.114 350.1.13.10 4.2.7.2.686 [id number] 134 [id number] [facility] 2022-02-05 08:45:00 2022-02-05 09:00:00 Core Drier Visit 2, Adc Lab Tobi [facility] 1.2.840.114 350.1.13.10 4.2.7.2.686 [id number] 353 [id number] [facility] 2022-02-05 08:45:00 2022-02-05 08:45:00 [facility] [id number] [facility] 2022-02-02 14:00:00 2022-02-02 14:32:25 Outpatient R CAROLYNN ESPARZA [facility] [id number] [facility] 2022-02-02 14:00:00 2022-02-02 14:32:25 Routine Visit Carolynn Esparza [facility] 1.2.840.114 350.1.13.10 4.2.7.2.686 [id number] 134 [id number] [facility] 2022-02-02 09:30:00 2022-02-02 09:30:00 Outpatient CAROLYNN WILSON [facility] [id number] [facility] 2022-01-29 12:58:00 2022-01-29 21:22:00 Outpatient X CAROLYNN ESPARZA [facility] TEENA [id number] [facility] 2022-01-29 12:58:00 2022-01-29 21:22:00 Emergency Fish, Cassy Esparza Carolynn Naga [facility] 1.2.840.114 350.1.13.10 4.2.7.2.686 [id number] [id number] [facility] 2022-01-21 00:00:00 2022-01-21 00:00:00 [facility] 1.2.840.114 350.1.13.10 4.2.7.2.686 [id number] 134 [id number] [facility] 2022-01-07 00:00:00 2022-01-07 00:00:00 Case Management Brianne Britton [facility] BUILDING 1.2.840.114 350.1.13.10 4.2.7.2.686 [id number] 134 [id number] [facility] 2022-01-05 11:00:00 2022-01-05 11:37:38 Routine Visit Brianne Britton [facility] BUILDING 1.2.840.114 350.1.13.10 4.2.7.2.686 [id number] 134 [id number] [facility] 2022-01-05 11:00:00 2022-01-05 11:37:38 Outpatient R BRIANNE BRITTON [facility] [id number] [facility] 2022-01-05 11:00:00 2022-01-05 11:00:00 Outpatient R TOBI BRIANNE [facility] [id number] [facility] 2021-12-29 00:00:00 2021-12-29 00:00:00 Telephone Carolynn Esparza [facility] BU[facility] 1.2.840.114 350.1.13.10 4.2.7.2.686 [id number] 134 [id number] [facility] 2021-12-23 10:30:00 2021-12-23 11:30:00 Core Drier Visit Ultrasound, Ang-MfGio Soriano [facility] RN ORTHOPAEDICS [facility] 1.2.840.114 350.1.13.10 4.2.7.2.686 [id number] [facility] 2021-12-23 10:30:00 2021-12-23 10:30:00 Outpatient P GIO DUKES [facility] [id number] [facility] 2021-12-08 13:00:00 2021-12-08 13:32:10 Outpatient R CAROLYNN ESPARZA [facility] [id number] [facility] 2021-12-08 13:00:00 2021-12-08 13:32:10 Routine Visit Carolynn Esparza [facility] 1.2.840.114 350.1.13.10 4.2.7.2.686 [id number] 134 [id number] [facility] 2021-12-08 13:00:00 2021-12-08 13:00:00 Outpatient R CAROLYNN ESPARZA [facility] [id number] [facility] 2021-11-10 13:00:00 2021-11-10 13:15:00 Core Drier Visit 2, Adc Lab Brianne Britton [facility] 1.2.840.114 350.1.13.10 4.2.7.2.686 [id number] 353 [id number] [facility] 2021-11-10 13:00:00 2021-11-10 13:00:00 Outpatient R TOBI BRIANNE [facility] [id number] [facility] 2021-11-10 11:15:00 2021-11-10 11:34:32 Routine Visit Brianne Britton [facility] 1.2.840.114 350.1.13.10 4.2.7.2.686 [id number] 134 [id number] [facility] 2021-11-10 11:15:00 2021-11-10 11:34:32 Outpatient R BRIANNE BRITTON [facility] [id number] [facility] 2021-11-10 11:15:00 2021-11-10 11:15:00 Outpatient R TOBI [facility] [id number] [facility] 2021-11-04 00:00:00 2021-11-04 00:00:00 Orders Only Doctor Unassigned, [place] [facility] 1.2.840.114 350.1.13.10 4.2.7.2.686 [id number] [facility] 2021-10-22 00:00:00 2021-10-22 00:00:00 Telephone Carolynn Esparza [facility] 1.2.840.114 350.1.13.10 4.2.7.2.686 [id number] 134 [id number] [facility] 2021-10-20 00:00:00 2021-10-20 00:00:00 Telephone Carolynn Esparza [facility] BUILDING 1.2.840.114 350.1.13.10 4.2.7.2.686 [id number] 134 [id number] [facility] 2021-10-16 00:00:00 2021-10-16 00:00:00 Telephone Carolynn Esparza [facility] BUILDING 1.2.840.114 350.1.13.10 4.2.7.2.686 [id number] 134 [id number] [facility] 2021-10-16 00:00:00 2021-10-16 00:00:00 Telephone Carolynn Esparza [facility] 1.2840.114 350.1.13.10 4.2.7.2.686 [id number] 134 [id number] [facility] 2021-10-15 09:45:00 2021-10-15 10:00:00 Core Drier Visit 2, Adc Lab Carolynn Esparza [facility] 1.2840.114 350.1.13.10 4.2.7.2.686 [id number] 353 [id number] [facility] 2021-10-15 09:45:00 2021-10-15 09:45:00 Outpatient R [facility] [id number] [facility] 2021-10-15 09:45:00 2021-10-15 09:45:00 Outpatient [facility] [id number] [facility] 2021-10-15 00:00:00 2021-10-15 00:00:00 Case Management Brianne Britton [facility] 1..114 350.1.13.10 4.2.7.2.686 [id number] 370 [id number] [facility] 2021-10-15 00:00:00 2021-10-15 00:00:00 Orders Only Doctor Unassigned, [place] [facility] 1.840.114 350.1.13.10 4.2.7.2.686 [id number] [facility] 2021-10-14 14:00:00 2021-10-14 15:15:08 Outpatient R CAROLYNN ESPARZA [facility] [id number] [facility] 2021-10-14 14:00:00 2021-10-14 15:15:08 Initial Visit Carolynn Esparza [facility] 1.2840.114 350.1.13.10 4.2.7.2.686 [id number] 134 [id number] [facility] 2021-10-14 14:00:00 2021-10-14 15:15:08 Outpatient CAROLYNN WILSON [facility] [id number] [facility] 2021-10-14 00:00:00 2021-10-14 00:00:00 Orders Only Doctor Unassigned, [place] [facility] 1.2840.114 350.1.13.10 4.2.7.2.686 [id number] [id number] [facility] 2021-03-28 14:12:00 2021-03-28 16:13:00 Emergency Avis Banuelos [facility] 1.2840.114 350.1.13.10 4.2.7.2.686 [id number] [id number] [facility] 2020-08-20 14:30:00 2020-08-20 14:30:00 Outpatient Phani BR[facility]TON [facility] [id number] [facility] 2020-07-31 13:00:00 2020-07-31 13:00:00 Outpatient Phani BRITTON [facility] [id number] [facility] 2020-06-21 11:46:00 2020-06-21 13:39:00 Emergency Charlene Whyte [facility] 1.840.114 350.1.13.10 4.2.7.2.686 [id number] [facility] 2020-06-21 00:00:00 2020-06-21 00:00:00 Orders Only Doctor Unassigned, [place] [facility] 1.2840.114 350.1.13.10 4.2.7.2.686 [id number] [facility] 2020-05-28 13:30:00 2020-05-28 13:30:00 Outpatient Phani BR[facility]TON [facility] [id number] [facility] 2020-05-01 09:30:00 2020-05-01 09:30:00 Outpatient R CAROLYNN ESPARZA [facility] [id number] [facility] 2020-04-30 08:30:00 2020-04-30 08:30:00 Outpatient R BRIANNE BRITTON [facility] [id number] [facility] 2020-04-28 15:15:00 2020-04-28 15:15:00 Outpatient R CAROLYNN ESPARZA [facility] [id number] [facility] 2019-03-06 13:43:15 2019-03-06 14:49:14 Office Visit Marley Valencia [facility] Office [address] 1.2.840.114 350.1.13.10 4.2.7.2.686 [id number] [facility] 2019-03-05 00:00:00 2019-03-05 00:00:00 Case Management Brianne Britton [facility] Building 1.2.840.114 350.1.13.10 4.2.7.2.686 [id number] 134 [id number] [facility] 2019-03-05 00:00:00 2019-03-05 00:00:00 Telephone EsparzaCarolynn [facility] 1.2.840.114 350.1.13.10 4.2.7.2.686 [id number] 134 [id number] [facility] 2019-03-01 08:58:15 2019-03-01 09:51:29 Office Visit Brianne Britton [facility] 1.2.840.114 350.1.13.10 4.2.7.2.686 [id number] 134 [id number] [facility] Results Test Description Test Time Test Comments Results Result Co mments Source [facility] Center[facility]ysis[facility]24-11-17 02:22:33* Test Item Value Reference Range Interpretation Comme nts APPEARANCE (test code = 7308388675) Slightly Cloudy Clear A COLOR (test code = 8056204062) Julieta Yellow A PH (test code = 6115518638) 5.0 4.8-8.0 SP GRAVITY (test code = 8046262973) 1.028 1.003-1.030 GLU U QUAL (test code = 9457386756) Normal Normal BLOOD (test code = 2713056430) 1+ Negative A KETONES (test code = 5214205647) 5 mg/dL Negative A PROTEIN (test code = 2887-8) 30 mg/dL Negative A UROBILIN (test code = 1281676169) Normal Normal BILIRUBIN (test code = 3434035254) Negative Negative NITRITE (test code = 8589505954) Negative Negative LEUK ZAIDA (test code = 9245257044) Negative Negative RBC/HPF (test code = 5648017689) 5 0-3 H WBC/HPF (test code = 8429169104) 3 0-5 BACTERIA (test code = 2055548331) Negative Negative MUCOUS (test code = 8607400555) Marked Negative LPF A SQ EPITH (test code = 4868397565) 5 HPF Lab Interpretation (test cod e = 57376-6) Abnormal [facility] [id number] 02:19:00* Test Item Value Reference Range Interpretation Comme nts POCT PREG (test code = 1605) Negative On board controls acceptable with C Line (test code = 3574) Yes Lab Interpretation (test cod e = 25370-3) Normal [facility] [id number] 19:07:00* Test Item Value Reference Range Interpretation Comme nts POCT PREG (test code = 1605) Negative On board controls acceptable with C Line (test code = 3574) Yes POCT PREG LOT # (test code = 3575) POCT PREG TEST DATE (test code = 3576) ENE (test code = ENE) accurate developme nt and interpretation of all internal controls Lab Interpretation (test code = 33135-9) Normal [facility] [id number] 17:09:45* Test Item Value Reference Range Interpretation Comme nts Case Report (test code = 1109196042) Surgical Pathology ?Case: [id number] ? Authorizing Provider: ?Kalina Haro MD ?Collected: ? 05/13/2023 194 ?Ordering Location: ? ? [facility] ? ? ?Received: ?05/13/20232151 ? [facility] Center ?Pathologist: ? Tatiana Rodriguez, ? MD ? Specimens: ? A) - FALLOPIAN TUBE, LEFT ? B) - UTERUS, INTRAUTERINE DEVICE REMOVAL ? Final Diagnosis (test code = [id number]) [id number] ZzEwMzNcZnRuYmpcdWMxIHtc cnRmMVxhbnNpXGRlZmxhbmcx SYYeBZN9ibCuYWBwZSY0EGD7 FqVkXQZcWdFtLXEjEKDvb4at u7FbqVOimGOeYEhxgDPxseDd fk08yGC6cM53IR3wQDVbEcW4 AMZrlqC5Zim7ENNsEAUjwRVs Y386b6eub1dywyDqzHO8mDwz PYXpyzvxVmR2JNkpUNMfotjp MGe3PKsyXFYbjUQ3EQCceXBl Y3KaGZDwCS8ejur7JJO1JTbv TWLrIvG0CUNpoNKvGCEvlDhx CUmwv736NGA6YuInDRAjrsHy uCehjR9fFeEnTAayQOBfYW3z LvXHAF6YKXCIMXKIPuKeAX3I FPBCLW1YIKYkETKYP90PUpEV RKRIPIOYYNOXLXqZCO0DIKFT C62JQqohPLRrCTHaEZMiAVVP TExPUElBTiBUVUJFIFdJVEgg N6qQKnvJEqzZACNNPEcPZPWZ YaMxNwoQF8GyA2wBQOHwQEYL SjUZO0ZNDiWbK3qTGBXPZ3EM DQbJCRWDGDiHMC7UGAbyJPLc yXUbQKJuVZKAPYENUbkpDS2L OhCDJJSTVG0ETWEPMjeDAJIX VT9IIjLESyCjtNIcBWUzMVCk HXPQCx8JAvBTSywVOXeIDJBf G1PNR2SjTEASZ7QIDINXO79c XHBhclxwYXIgUmFzaGEgQWxm DBJ0WWchLX1OF0pLDFMomHWf TIDtqx16EDE3MmArq0U9JZRj GlMtELQvOF4yvOflXBXrZA6n EQUmS2dnnF9qget1SpRiZHNq DlV3DUHldwS2Wkb2XHVwSPpc r8bxo4HwK5AqyXWvtCd0i7gt VFYtMpP0gPYbKOveX3izcgKq rOPlSXPlCYz8rAkdBqGaSLXy v9mwoyWmJwYnGZFoWFLhUHXr vUnynwc5eQ47LSIfrR0lrTDh XFaueoBgSiC4WTjuIAKcAqQ2 NLHgfTOySKQpB0ayRVDbZQml REZnOXqoaMBtELZ5aSsjn9G1 bGVzaGVldHtcZjBcZnMyOCBO j4TqDMh8cPmpA4ZrXXAsRfA4 bHQgUGFyYWdyYXBoIEZvbnQ7 wO95AWusnsX6lQRoc1Ftj94n w160wS6wmQXnDNH7NAXfOERs wGFsCMFnFPQ7YHRqqFZsU8bm TLYtOX8efangVIbmORvnUYMy yHC8LFMidQWwD5LdANYsVRrl FCDvwpk7EdStSh3ezEWseSpj TVwqy1mit4awlPNbPca7BBIf FmGjTyjmWDard3Gbp8ccMOIr ah9xXZG8aQNtfCjpu4I8iYWx FHBogNWfbtPsDZSqIuD6LUsr LK2jhs44KVXqTEA6oj0cuTRo iMalprFqfDVwYYniQ0EyEWVs h165YLHiL9JsCYPtb6I7ahAo WrJrHIRoqCB5gaJ7BBVdTPw1 yYLvubX1eiQwzCGpL7rnnH1f DAVrCC5lzlsuw8xxYIbhJTjw ZZPtyTA0veQ3KGJmhFGkR8Pm lS3mJOLbTTlmNHCavbj4SiSo Cr0ofXSyjLhvTJmlQciwFMea XHBnbmNvbnRccGduZGVjXHBs YWluXHBsYWluXGYwXGZzMjRc uOtipNcdzY6lQiMdGgBtRRhx UV6xRJQcJ1kmiPFzWPOsKIIp B9cqEkRqwG4aoUpmKOzuUpDx ZnMyMFxwYXIgSSBoYXZlIHBl juJeqgNxhYlekcU6gYZ4GZYk FZreCNCcOMIveVSehm2giXft PBLiMH5lEWVyrmGiZSfwcGwn QSnuCSG3VERgxIPizFFnhMLr ZSBieSByZXNpZGVudHMsIGZl vRzme5Etl3TypYM2pI8tw1yt x2UeWNDyaCI0CG31awR2qJ6o GDKtOH7xXUGoOR7icQEhcHJv YSYgo01leBqjftEjSPLkacOw XHBsYWluXGYyXGZzMjhcbGFu ZzEwMzNcaGljaFxmMlxkYmNo XCDmMFlbO7gqHoLsRfJwQDmd ELZ9nMayarCkISfzw5YaS9Hs MjAwMFxhbnNpXGRlZmxhbmcx TASxWUB5htPsEMEqHVmbLPDq FZboVk4vqCYmyOyvGxTsIEGi j0ogvuJBAAkoLkPzP781EHVy KTbrh4muz1RrCYUisCFym8K9 DRCHszljzGp4hHyuF16nt9T4 HkcdC1plZDEsWNHrU7MlWI6o JFBrNdf3ISL1HPA8ASHyZXLs B5MmEE8hELIglCSkKMo3r7cb wZqsCLGzODQ4a7viFYtarnA3 HU2iwg4pgIb3i2ipiaOcFYYi FMJndPSCQVUjZ3OeiOyoMn2i wPe8dGgnZpvpAHW4Ojq5QB3a de51poo1aVzhGFSnhwnwDkX6 MHojANVymbrbFAs3LDvyMWGh cHH9VTWigPDmH9TnSQApEV1o djx1ZGA4FBccIRBlTaU4KFBp wBGmKJNdtWemXXtbp123RYF5 RqFoFQ1vC0Bmn1F8wE1hlLUq OGTyrPFgYcHlGEMpib3qiCFc UIegl1XuK03kyGI0CAnob2zx SL6uXnN0skVlVMrwy2mizA0s VfB3RCvlKK6fln12MXYzVII3 jm1dpYXgxUzfomDonCSbERja S2ZnPLWae033MMHtU6OwLAZn s9W0oiCrBiDaFGKyrCE8pmF3 GPPjHPz3uEHompI3cvHwpNIj D3encO4iLMHjAU7tjhevw8dx SYfoHDggTHRznOZ5smR2XAVi pKMaT2LwzR7hSCHdYJcxVBIt psi8HzBpQw7ceEAgdEruRScj YmtwYWdlXHBnbmNvbnRccGdu ZGVjXHBsYWluXHBsYWluXGYw WOPwLdFrbMIkHXhjr9EotaYw uLsnMACuLCx9rbGkdtlwuYm0 bYBqgPvpJOGvrHnygT7xUzWa GxUiXFlyWA2ySDLfY1pbjVEe CULoCSUrA0glMgJvaX7klTxr MVxjZjJcZnMyMFxsdHJjaFxw YXIgSSBoYXZlIHBlcnNvbmFs nXnjlzP3sYX7IEJnCRjtAWDh MUJiwZWpfo1vjFgbIYGzOS6r IGFncmVlIHdpdGggYWxsIHN0 YXRlbWVudHMgbWFkZSBieSBy RJHnBQJxiSKeCHJuqMjyp9Cd y1InfIR0jH1hk4wey8CxMGVh eAS5RI89wsO0yV0iZMWgGE7y CJWlXZ6pxBZaqBXbIOIbd78n dGhpcyByZXBvcnQuXHBsYWlu XGYxXGZzMjBcbGFuZzEwMzNc aGljaFxmMVxkYmNoXGYxXGxv N6bvUnIhA9WsCVRtTjOxzMDn NXBqenxbFOEsf4ArBqDou3li TBomw5iznNw6CXhtxGGqgeyu CUplukS2ENXjZYseOCKiXMUv MTRcbGFuZzEwMzNcaGljaFxm SUdmYhUlSEHsREfwY3rgAvOd X0JfHIEdGNLlsVBrS8mxHSP3 rJ9dn2ium8NckNDwYiQit4qd bmFsIGNvbXBvbmVudCBwZXJm m5IdYVFrAWLjGUAIJe2MUDVo eKOjL6k8iWLQOA4faUXzIQOt LIEtB8UtQrDIdaAav2I2TWYk bZWkXDBRVWGicQIoB7r1wLae MRodZtv3HbAobGvzzR9bTfNu KcRtUPvzPO6aUPGmG9njzCAv BABlFKBtI1puWjIraI3ocMry MVxjZjJcZnMyMFxsdHJjaFxw YXJ9fQ== Clinical Information (test code = 5504308393) LEFT LOWER PELVIC PAINSUSPICION FOR ECTOPICDESIRES IUD REMOVAL Gross Description (test code = 1110222483) l0gawEDtAMIuiWDJFVY3PCQr XE9yuBxfwFl9aLmkYPSenkC9 nAKtWOhul5ncYIB0s0dtvpPC MsmnQMWfMO9jUDjkIDWeHB7c ZmUwXGRlZmYxXHBhcGVydzEy WsFzJDHmoDTgmMH7FXDvCQ7x yoayXGgnTJnfWPJvfiB8OLNg mYWnP7ZuVNFjXR2azqhhKCK5 IORWYlxpKk1bwJBqsXgaAgFx ZmNoYXJzZXQwXGZuaWwgQXJp YRz9xP1NGzbjDAM8WBADZrlt OqmtyVpig5EfaYVwMPIhDDdo aWQgNTEwMDAgXFxkYiBPVlIg TdY5YEYyBtY5SiS0QBp0LHRR UXZzJfe3AdM9FYH7WSc0RHUx ZN1gKXceaBArDKntIiiaKGbg D621UTrpXCRkZ1BoC2AcQLrk ZyBcXGlkIDUxMDAyIFxcZGIg S0TPOSOvEUs2VZwxFzIhBHo3 ALkcD3UOFYObQVC5KHCvNpi6 AlO0GQq2KXRIOe0lTPmqUOG7 JQP3AFW5EYy6GAZlXALqKlZj TSHgTQCzDWtxjQTjLM7etLms WTByNZ8MWXYqKRhyKYCdPzMe L9ZJU4eEEF0cTEqzhMSwsDxh gaWeBBGaqcHMYdxgUDDiGM2A HVYcILztDWe5fxXyJPWcOwZy KDHbZ36xj4PFu7TeRK9ULAg7 hbHpmxbacU4zMDQzavFtw2Vj MFxlcGljWHNhMzAgDQpTcGVj kF4jveUKIZaxRNYcA2DyhlUc MMmeTKHhhb3xyDedGZgiUvBm WZVbh2p5jWZ7jMKnbUX9iVKt nRxdWC0yfUSfIZHWYB99cVIw bjifPkUipExljUjrtmZ6qUHh BZLnYIK3DjQophScL09st0jf aZEal2BuLDGtxA7cwWNzeMQh LXBpbmsgZGlsYXRlZCBzZWdt LN81VH7hGBDeoJKznAY2PPNd SiLlfM7sdYWlCDT6HmMzZQGv GPLzyXKeyfJlUZ9sqMykWcpm PC2lJXXpIJltXAOkQZ6xfNZb MLR3lVRqGQFrt4Hbw3ZzkFVk BBMhN8IdVOf9NSctYrRsSEOk AZZrNJVmqX3vJPTytM04HlGo V6KuaRVguFftz4QnxPdzidzd ZsDeRHYkWJuhWBKaeVI1PLXq iJIaZJ5lx4c8cKDrTGGiLBPm YISftQ91tYUoICSmq04nANSu r8FaRHAYhhGjBXGqtCXjviYb cBSgaBMck8FtM2hazscoilzj VTUtsMrwQJCpWYGnie2cn7t9 KGbmAH48eMNfBZNwTV5mXPFo ZPFqnGVecL6tenLodeVqtsQa srExxTAyzZFfsOZ7EYFpaL7m ZQCqTVnoZL5DLOMntIYWUQL5 XD2wFKmiZEEwG9JjR3NuhyF5 RLXeryVFFiycTbskwViko0Zy dCBcXHNnIFxcaWQgNTEwMDIg HJrdDlIYMuJrBuB4OLHsIjG4 FkC4WKx0EKBVCzUvLzQzWaAw ZTY9DGBoLSf2XDg6EAoIXyCi CCL2ClV5CAK5FOT4CuJ4ANsm mMLnHOdvh7BdUiAeLJRxLKyf ovL9YANzhhAfp5CpALBsYTZl N7zgXmXhYBJSXtytdmTgLFTP RUNJTUVOIEJcZnMyMlxwYXIg DQpccGFyZCANClxwbGFpblxs dHJjaFxmczIyXGVwaWNOZXN0 JM1oJHXEHejqkYOiANJrkXem VQkicP5wZIEmBqHdQBGdT5ik PeAiUO3KZ1CiB0hcBY9lXLTw cyByZWNlaXZlZCBmcmVzaCBs TFOfiWjaSCT1cPIwDKCeWDZu DRQlHB83DVxNTHElklSoAAyq VUggbnVtYmVyIGBgIGludHJh eRRfvluzFJKlNWTlP7FkbaFn o1PaeWkhEtBsG2T3EGShOHSt f33ujXH8klKrGjLkHLEcnvbe SFT0iLz4RYWwvTIxeItiXGcl p0RrsKxrrH68ANE2JNcxjSHo tPTkjkxpCSBeLSJnL4EvENVe kkzaRNEmzoC6aGJjl2gegWVz y7JmjQreUMsueJPrbmKMDHn8 fLPkNtOqFRUylGFgOQ9jNPQ4 ftSwCACyOeKuvCIlYN2xnCvq QP9jNOJxFDAujEYiwxQzpLYn ZXRlciBhbmQgdGhlIHRvcCBj jr8yxrTpIXVyaDKpa3ScRFXm Pd76TPwxLN6yVMkmBY6eBOJj VE6zAPqfppJguPRuLHQps6Hy tJJpu7ApdM7yQMm2AlWvA10q sR8baVZfJ0SbZRIxAPCoDKRo CYZuVX0uIK1lTJIqCAqjIVYc MF7zpSOnVJKdmNXpF1bdBNO7 egF2sFRnBa19dI6gWX2cSBVm HTQdKVCeBUD6EX1mJRjfs1Kv BL7kLWwoJQeraGiipW5eizPt nKEuQSYyBOQei9AnGoJDlNDh l8VzD6dbWE1wuRZbOt5tKWbv w3NrEMQ4LQ8ccrT2nH7qSN6p bHkuXHBhciANClxzYjBcZXBp S9klPoDcYYrojZOpSG0TYdKo iEYpNNFSuSgoouN0SNROHQBy CSNMHLyfmNFgGP8HHKAkImDt OZNhU1ryLBJhKZ7NTWWsoFAO PPL0QE8yXKkxTHTqR4QbN9Dq hoG4x1pnsQsbt9MhrWIfUT6c bRFwCT8HWVBxbhEtKQm8 Disclaimer (test code = 3275208155) y6gsrIBgDZOnu8wcAPApqBHg ZzEwMzNcZnRuYmpcdWMxIHtc tjDpJDogj7JoJ9DfHdOiQXxt bnNpXGRlZmxhbmcxMDMzXGZ0 fkMeXCRjBDieHYJlDPdgIp0w nMUluFzgOzTjZLIvv0ftlmER KKugMlKfN598VNGvWPqit0fw t0TaNTMreBPfc3N1OJYRrnez uHh2fIapE85vh9U3IadxC3ph GZPwMKOiO8KtRN0nWMNbCgs5 UQL8RAC1QDAhFSGaM9JfAU1c XGVrcRMwENb7m7wwbIwhFCUj PSB6b2byYTecsbDsPX3gye0b sQz4b9upylXxSFPrCSBdvNYH YTVfE8FfrOokFh8qaKi1zPul JvsdNAX6Tqb2SV8owu47muc6 wAifUXFhybigTuJ4CRyoQQRi tcdfIOc8KLtbWVBroRB1UHUy bANkE6YfCENuXN7jdap4USC8 EKodLVTgRnK2VARefNFhEUSu gTadEYhod448ILY1OgBqHM6d T3Tot4D9yT5cjMNjIRQpqLGz OsKdSIVbqx4bwIYvWPsek0Ux GKE9sfN0gEDjdAElVGSjEG75 Ugsrr7LuOgnko9LqO69qkNK9 LXjqy8pyJM7lVhA9cnGwLWxz b9omfD7xDvQ4ZLqyCY0lDQ1b QSPggG4wrkkcFVNoWpWgyrhg OVTxqGsvckVdBb2vqIwjJLW2 AUgzK5ttfQ5nYqM5ZPnrB3pc cV8uWKt7NXxpvCT7UPWqsR9q XI5dzzamt8yeLHyzMOfkNPDv kcF5joZ6IXPauOLkW6IcsF8b LLUzBR0ozpnwp5biEHI1SXgm DHZwYFS0NlQgLXInd6Zidum5 IqGlj4UikOOgNNyaH83jl395 EOZujdUpY8wjqXVvjqhvyEPt iugzJWkfxaZ5AVRuzyMse1Rx VWPlLBE8KXbwCPbdeTUnUEQs yMezn9oiT8NklVJaPTTgODuk XGYxXGZzMjBcbGFuZzEwMzNc aGljaFxmMVxkYmNoXGYxXGxv Y8fsNtCqF6LrASZcXxVweERd D7zkMQffbwBvVTZwfqRfxZD9 WQnfT1t9TIOpzfLbfBv8prNz OjIyKWQoYZA0TPssiIIbIHDy r6EyeolnpLOwIx7nmPPcEMLs zE6aKVSuHTMrUDyrDI9vfPi1 NDOLnAQlzVRvCoSRPNXpRC74 xsNnAHZOvwzmb6R5COlkLWRb h9AyvATkX3wqf9QzBSJvx09o TZ5bi7O1q6ptSLI3SL0bl2Wn AQXfiEAtcIBzDMIxi4Gswctv h5LvWZBnhqXba4UjJOQffnOp aCNsNEEumzLrve9davXjRXDc SMNjE0ZiztclaGyfxoDdSBLe bz2hioYrHSQ4DBQXKYQsQBXg p5NnzC5pjWRGCDW0vZXnxd3h hmBJmDYgHAEjut19ZNLyQS3p H3lfRJXnQJGjekNyzFHcx2Ks EHQqcNA7lAUbUW0VDaCEo31o IGFuZCBEcnVnIEFkbWluaXN0 fjQ3mV0iBLyFVMPeFzh+IFRo EAUMBFFsTK6elsJwj8HkjoJd mKjoBPMkeBWyj4WvfYMuj7Xs fUdbj6WysMMcdYNoPT6mFNVn clxwYXIgVVRNQiBMYWJvcmF0 k9CiVRJsLWTyYZM5uVqkvcm9 KEQrgC5gMNJpD0syfqzeGUda DZTsd4ReaH7kuMXQhLMvy7Sw kAAotLDBfSKuRC5bweKwFZpP JPkXNDN7jaScAJMsd0OhAOoj I7qwV14piBxerZl9mSQ1TIJ4 yF9hPsh+IFxwYXJccGFyIEFw uNCiaRNiSLCfkXatqwFpF5Tv hbUvlY9bdGDfcqFsCN5cSY2r P8Y5dSRnSCCemvEbv8vsVHct dmUgYmVlbiByZXZpZXdlZCBm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
--- NOTE | 2024-09-16 20:39 | RAD REPORT ---
EXAM: CT brain without contrast HISTORY: PAIN COMPARISON: None TECHNIQUE: Multiple contiguous axial images were obtained and a CT of the brain without contrast. Sag ittal and coronal reformats were performed. One or more of the following dose reduction techniques were used: Automated exposure control, adjust ment of the mA and/or kV according to patient size, and/or iterative reconstruction. FINDINGS: No evidence of hydrocephalus, intracranial hemorrhage, or extra-axial fluid collection. The brain is normal in morphology. No evidence of midline shift or areas of brain edema. The calvarium is intact. The visualized paranasal sinuses and mastoid air cells are essentially clear . IMPRESSION: No evidence of acute intracranial abnormality.
--- NOTE | 2024-09-16 20:40 | RAD REPORT ---
EXAMINATION: CT MAXILLOFACIAL WITHOUT CONTRAST CLINICAL INDICATION: FACIAL PAIN TECHNIQUE: Axial images were obtained through the facial bones and orbits without intravenous contras t. Sagittal and coronal reconstructions were created from the data. One or more of the following dose reduction techniques were used: Automated exposure control, adjustment of the mA and/or kV accor ding to patient size, and/or iterative reconstruction. Unless otherwise specified, incidental findings do not require dedicated imaging follow-up. COMPARISON: No prior exam. FINDINGS: SOFT TISSUE: No significant abnormalities. BONES: No evidence of fracture, dislocation, or aggressive osseous lesions. No lesion of the visuali zed skull base or calvarium. ORBITS: The globes are intact. No intraorbital hemorrhage or mass. SINUSES: The visualized paranasal sinuses and mastoid air cells are essentially clear. IMPRESSION: No acute or concerning abnormalities.
--- NOTE | 2024-09-16 20:52 | RAD REPORT ---
EXAMINATION: XR LEFT SHOULDER CLINICAL INDICATION: Female, 24 years old. PAIN TECHNIQUE: Multiple views of the left shoulder were obtained. COMPARISON: No prior exam. FINDINGS: No evidence of fracture or dislocation. Normal alignment. No evidence of arthropathy or oth er focal bone lesion. Soft tissues are unremarkable. IMPRESSION: No significant bone or joint abnormalities.
--- NOTE | 2024-09-16 20:52 | RAD REPORT ---
EXAM: XR LEFT HAND HISTORY: Pain. PAIN COMPARISON: None TECHNIQUE: Multiple projections of the left hand submitted. FINDINGS: No evidence of acute fracture or dislocation. Joint alignment is maintained. No soft tissu e swelling is seen.. No significant degenerative changes are present.
--- NOTE | 2024-09-16 20:53 | RAD REPORT ---
EXAMINATION: XR LEFT FOREARM CLINICAL INDICATION: PAIN TECHNIQUE: Multiple projections of the left forearm were obtained. COMPARISON: No prior exam. FINDINGS: No bone or joint abnormality seen.
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
[2024-09-16 21:24] VITALS: BP 129/68; TEMP 97.9; O2SAT 100
== END 2024-09-16 21:06 | disposition home or self-care (01) ==
LOC: ER 19:40
DX: S00.83XA Contusion of other part of head, initial encounter (principal); S60.222A Contusion of left hand, initial encounter; M25.512 Pain in left shoulder; M25.532 Pain in left wrist
CPT/HCPCS: 70450; 70486; 76377; 99282

== ENCOUNTER 2025-04-25 20:59 | Emergency (ER) | payer OTHER ==
--- OUTSIDE RECORDS SUMMARY | 2025-04-25 21:08 | XMS REPORT | Continuity of Care Document ---
Author Name Unknown Address [address] [facility] [place] [address] Organization [facility] [place] Address [address] [facility] [place] [address] Care Team Providers Care Tape Keller Operator Name Role Phone MARLEY VALENCIA Primary Care Physician Unavaila CAROLYNN Mendoza Attending Clinician Unavailable CAROLYNN ESPARZA Attending Clinician Unavailable CHAYO LR Attending Clinician Un available Carolynn Esparza MD Attending Clinician [phone] Doctor Unassigned, [place] Attending Clinician U BERONICA Rubio Attending Clinician Unavailable BERONICA SALGADO Attending Clinician Unavailable Orin Sheehan MA Attending Clinician Unavailab ALYSON Palacio Attending Clinician Unavailab ALYSON Palacio Attending Clinician Unavailab TRISTAN López Attending Clinician Unavailable TRISTAN TRONCOSO Attending Clinician Unavailable DONALD MCGRATH Attending Clinician Unavailable NEMO PRADO Attending Clinician Unavaila NEMO Leroy Attending Clinician Unavaila Brianne Alexander PA-C Attending Clinician [phone], [facility] Attending Clinician Unavailable MARLEY VALENCIA Attending Clinician Unavailable KALINA HARO Attending Clinician KALINA Mensah Attending Clinician Jatinder marcum Doctor Unassigned, [place] Attending Clinician U usmanailKENNY Peace Attending Clinician Unavailable Kenny Suresh Attending Clinician [phone] MILY DELGADILLO Attending Clinician Unavailable Razia Flowers Attending Clinician Mily Delgadillo MD Attending Clinician [phone] BRIANNE BRITTON Attending Clinician Unavailable Marley Clement Attending Clinician [phone] Unknown, Attending Attending Clinician Unavailab Nell Meraz MA Attending Clinician UnavailLivan Irizarry CRNA Attending Clinician [phone] Luis Levin MD Attending Clinician [phone], [facility] Main Attending Clinician Unavailmason e Only, [facility] Test Attending Clinician Unavailable GIDEON ROEM Attending Clinician Unavailable Wild CITY COUNCILMAN, Gideon Attending Clinician [phone] Ebrafilomena CITY COUNCILMANAlirio Peralesia Attending Clinician [phone], [facility] U[facility] Room Attending Clinician Unavaila Lesly Norton MD Attending Clinician [phone] LESLY SHIPMAN Attending Clinician UnavailCassy Pacheco MD Attending Clinician [phone] Ultrasound, [facility] Attending Clinician Unavaila Gio Catherine DO Attending Clinician [phone] Avis Roberts S Attending Clinician [phone] Ibflaquito CITY COUNCILMAN, Charlene F Attending Clinician [phone] CASSY RUTHERFORD Admitting Clinician Unavailable ALYSON MICHEL Admitting Clinician Unavailab KALINA Culver Admitting Clinician CAROLYNN You Admitting Clinician Unavailable MILY DELGADILLO Admitting Clinician Unavailable Mily Delgadillo MD Admitting Clinician [phone] MARLEY VALENCIA Admitting Clinician Unavailable Carolynn Esparza MD Admitting Clinician [phone] Cassy Rutherford MD Admitting Clinician [phone] Payers Payer Name Policy Type Policy Number Effective Date Expirati on Date Source [employer] MEDICAID [id number] 2021 00:00:00 [place] [id number] 2025 00:00:00 Problems Condition Name Condition Details Condition Category Status Onset Date Resolution Date Last Treatment Date Treating Clinician Comments Source History of bipolar disorder History of bipolar disorder Disease Active 9-05 00:00: 00 [facility] Nausea and vomiting during prior to 22 weeks gestation Nausea and vomiting during prior to 22 weeks gestation Disease Active 3-30 00:00: 00 [facility] No known active problems No known active problems Disease [facility] Upper abdominal pain Upper abdominal pain Disease Resolve d 7-20 00:00: 00 2025-03-22 00:00:00 2025-03-22 10:41:55 [facility] Gallstones Gallstones Disease Resolve d 7-15 00:00: 00 2025-03-22 00:00:00 2025-03-22 10:41:54 [facility] Well woman exam with routine gynecologi anna exam Well woman exam with routine gynecologi anna exam Disease Resolve d 2021-07 0-04 00:00: 00 2025-03-22 00:00:00 2025-03-22 10:41:53 [facility] Pelvic pain in patient at less than 20 weeks gestation Pelvic pain in patient at less than 20 weeks gestation Disease Resolve d 2022-07 0-27 00:00: 00 2023-05-23 00:00:00 2023-05-23 13:16:43 [facility] Pelvic cramping in antepartum period Pelvic cramping in antepartum period Disease Resolve d 2022-07 0-24 00:00: 00 2023-05-23 00:00:00 2023-05-23 13:16:42 [facility] Vaginal bleeding affecting early Vaginal bleeding affecting early Disease Resolve d 2022-07 0-24 00:00: 00 2023-05-23 00:00:00 2023-05-23 13:16:46 [facility] Presence of intrauteri ne contracept magda device (IUD) Presence of intrauteri ne contracept magda device (IUD) Disease Resolve d 1 1-23 00:00: 00 2023-05-23 00:00:00 2023-05-23 13:16:40 [facility] Vaginal discharge Vaginal discharge Disease Resolve d 0 3-03 00:00: 00 2023-05-10 00:00:00 2023-05-10 15:16:58 [facility] Rash and other nonspecifi c skin eruption Rash and other nonspecifi c skin eruption Disease Resolve d 0 3-03 00:00: 00 2023-05-10 00:00:00 2023-05-10 15:17:04 [facility] BMI 28.0-28.9, adult BMI 28.0-28.9, adult Disease Resolve d 3-03 00:00: 00 2023-05-10 00:00:00 2023-05-10 15:17:02 [facility] 39 weeks gestation of 39 weeks gestation of Disease Resolve d 1 0-04 00:00: 00 2022-05-12 00:00:00 2022-05-12 14:33:04 [facility] Liveborn infant, of victor , born in hospital by vaginal delivery Liveborn infant, of victor , born in hospital by vaginal delivery Disease Resolve d 1 0-04 00:00: 00 2022-05-12 00:00:00 2022-05-12 14:33:08 [facility] Gastroesop hageal reflux disease, unspecifie d whether esophagiti s present Gastroesop hageal reflux disease, unspecifie d whether esophagiti s present Disease Resolve d 0 8-25 00:00: 00 2022-05-12 00:00:00 2022-05-12 14:33:10 [facility] Encounter for tubal ligation counseling Encounter for tubal ligation counseling Disease Resolve d 2021-0 7-19 00:00: 00 2022-05-12 00:00:00 2022-05-12 14:33:12 [facility] Nausea and vomiting during prior to 22 weeks gestation Nausea and vomiting during prior to 22 weeks gestation Disease Resolve d 2021-0 3-30 00:00: 00 2022-05-12 00:00:00 2022-05-12 14:33:13 [facility] High risk , antepartum High risk , antepartum Disease Resolve d 2021-0 3-30 00:00: 00 2022-05-12 00:00:00 2022-05-12 14:33:15 [facility] Tinea corporis Tinea corporis Disease Resolve d 2018-0 4-11 00:00: 00 2021-10-14 00:00:00 2021-10-14 15:53:21 [facility] Pyelonephr itis Pyelonephr itis Disease Resolve d 2018-0 2-20 00:00: 00 2021-10-14 00:00:00 2021-10-14 15:53:09 [facility] Excessive bleeding Excessive bleeding Disease Resolve d 2017-0 2-26 00:00: 00 2021-10-14 00:00:00 2021-10-14 15:53:08 [facility] 40 weeks gestation of 40 weeks gestation of Disease Resolve d 2017-0 2-13 00:00: 00 2021-10-14 00:00:00 2021-10-14 15:53:17 [facility] Normal labor and delivery Normal labor and delivery Disease Resolve d 2017-0 2-13 00:00: 00 2021-10-14 00:00:00 2021-10-14 15:53:18 [facility] Supervisio n of high-risk of young primigravi da Supervisio n of high-risk of young primigravi da Disease Resolve d 2016-07 0-09 00:00: 00 2021-10-14 00:00:00 2021-10-14 15:53:12 [facility] High risk teen in second trimester High risk teen in second trimester Disease Resolve d 2016-07 0-09 00:00: 00 2021-10-14 00:00:00 2021-10-14 15:53:13 [facility] Supervisio n of high-risk with insufficie nt care in second trimester Supervisio n of high-risk with insufficie nt care in second trimester Disease Active 2016-07 009 00:00: 00 2021-10-14 00:00:00 2021-10-14 15:53:17 [facility] Allergies, Adverse Reactions, Alerts Allergy Name Allergy Type Status Severity Reaction(s) Onset Date Inactive Date Treating Clinician Comments Source NO KNOWN ALLERGIE S Drug Class Active [facility] Social History Social Habit Start Date Stop Date Quantity Comments Source ASSERTION 2024-11-09 00:00:00 [facility] Gender identity [facility] Alcoholic beverage intake 2025-04-22 00:00:00 2025-04-22 00:00:00 Ex-drinker (finding) [facility] Alcohol intake 2023-05-23 00:00:00 2023-05-23 00:00:00 Ex-drinker (finding) [facility] History of Social function 2023-03-01 00:00:00 2023-03-01 00:00:00 [facility] Tobacco Comment 2023-02-22 00:00:00 2023-02-22 00:00:00 vapes [facility] Tobacco use and exposure 2023-02-22 00:00:00 2023-02-22 00:00:00 Smokeless tobacco non-user [facility] Exposure to SARS-CoV-2 (event) 2022-11-05 00:00:00 2022-11-15 12:57:00 Not sure [facility] Sex assigned at 2000 00:00:00 2000 00:00:00 [facility] Smoking Status Start Date Stop Date Source Never smoked tobacco [facility] Medications Ordered Medication Name Filled Medication Name Start Date Stop Date Current Medication? Ordering Clinician Indication Dosage Frequency Signature (SIG) Comments Components Source vit 75/iron/fol ic/om3 (DAILY ORAL) 2024-07 006 10:21: 46 Yes Take by mouth. [facility] metroNIDAZO LE 500 mg tablet 03-26 00:00: 00 04-03 04:59 :00 Yes [id number] 500mg Take 1 tablet by mouth in the morning and 1 tablet in the evening. Do all this for 7 days. [facility] ARIPiprazol e (ABILIFY) 10 mg tablet 07-28 00:00: 00 08-28 05:59 :00 No [id number] 10mg Take 1 tablet by mouth in the morning for 30 days. [facility] escitalopra m oxalate 10 mg tablet 07-28 00:00: 00 08-28 05:59 :00 No [id number] 10mg Take 1 tablet by mouth in the morning for 30 days. [facility] cefTRIAXone (ROCEPHIN) 350 mg/mL in Lidocaine 1 % injection 500 mg 2023-07 02:30: 00 06-03 03:27 :00 No 500mg 500 mg, Intramuscu lar, ONCE, 1 dose, On 06/02/24 at 2030, SHAMAR, Reason for Anti-Infec tive: Empiric Therapy for Suspected Infection, Empiric Therapy Site: Pelvic, Duration of therapy: Once (ED) [facility] azithromyci n (ZITHROMAX) tablet 1,000 mg 2023-07 01:45: 00 06-03 03:28 :00 No 1000mg 1,000 mg, Oral, ONCE, 1 dose, On 06/02/24 at 1945, SHAMAR, Reason for Anti-Infec tive: Empiric Therapy for Suspected Infection, Empiric Therapy Site: Pelvic, Duration of therapy: Once (ED) [facility] metroNIDAZO LE 500 mg tablet 2023-07 00:00: 00 03-22 00:00 :00 No [id number] 500mg Take 1 tablet by mouth in the morning and 1 tablet in the evening. [facility] ARIPiprazol e (ABILIFY) 2 mg tablet 2023-07 00:00: 00 07-03 05:59 :00 No [id number] 2mg Take 1 tablet by mouth in the morning for 30 days. [facility] ketorolac (TORADOL) injection 30 mg 2022-07 05:45: 00 05-15 04:55 :00 No 30mg 30 mg, Slow IV Push, ONCE, 1 dose, On 05/15/23 at 0045, Routine [facility] FENTanyl PF (SUBLIMAZE (PF)) injection 50 mcg 2022-07 05:15: 00 05-15 04:27 :00 No 50ug 50 mcg, Slow IV Push, ONCE, 1 dose, On 05/15/23 at 0015, Routine [facility] ondansetron (ZOFRAN (PF)) injection 4 mg 2022-07 05:00: 00 05-15 04:59 :00 No 4mg 4 mg, Slow IV Push, ONCE, 1 dose, On 05/15/23 at 0000, SHAMAR [facility] iopamidol (ISOVUE 370-500 mL) injection 80 mL 2022-07 05:00: 00 05-15 05:00 :00 No [id number] 80mL 80 mL, Intravenou s, ONCE, 1 dose, On 05/15/23 at 0000, Routine [facility] morpHINE (4 mg/mL) injection 4 mg 2022-07 04:00: 00 05-15 03:56 :00 No 4mg 4 mg, Slow IV Push, ONCE, 1 dose, On 05/14/23 at 2300, STAT [facility] ondansetron (ZOFRAN (PF)) injection 4 mg 2022-07 04:00: 00 05-15 03:56 :00 No 4mg 4 mg, Slow IV Push, ONCE, 1 dose, On 05/14/23 at 2300, SHAMAR [facility] ketorolac 10 mg tablet 2022-07 00:00: 00 03-22 00:00 :00 No [id number] 10mg Take 1 tablet by mouth every 6 (six) hours as needed for Pain (scale 1-3). [facility] docusate (COLACE) capsule 100 mg 2022-07 13:00: 00 05-15 02:05 :19 No 100mg 100 mg, Oral, Q12H, First dose on Tue05/14/23 at 0800, Until Discontinu ed, Routine [facility] simethicone (GAS RELIEF (SIMETHICON E)) chewable tablet 160 mg 2022-07 02:00: 00 05-15 02:05 :19 No 160mg 160 mg, Oral, PC+HS, First dose on Tue05/13/23 at 2100, Until Discontinu ed, Routine [facility] ondansetron (ZOFRAN (PF)) injection 4 mg 2022-07 01:37: 02 05-14 01:38 :00 No 4mg 4 mg, Slow IV Push, PRN, 1 dose, Starting on Tue05/13/23 at 2036, Until Tue05/13/23 at 2037, Routine, Nausea and Vomiting (N/V), PACU [facility] FENTanyl PF (SUBLIMAZE (PF)) injection 25 mcg 2022-07 01:37: 02 05-14 02:43 :04 No 25ug 25 mcg, Slow IV Push, Q5MIN PRN, 4 doses, Starting on Tue05/13/23 at 2036, Until Tue05/13/23 at 3, Routine, Pain (scale 4-6), PACU [facility] diphenhydrA MINE (BENADRYL) injection 25 mg 2022-07 01:13: 28 05-15 02:05 :19 No 25mg 25 mg, Slow IV Push, Q6HPRN, Starting on Tue05/13/23 at 2012, Until 05/14/23 at 2104, Routine, Itching [facility] ondansetron (ZOFRAN (PF)) injection 4 mg 2022-07 01:13: 26 05-15 02:05 :19 No 4mg 4 mg, Slow IV Push, Q4HPRN, Starting on Tue05/13/23 at 2012, Until 05/14/23 at 210, Routine, Nausea and Vomiting (N/V) [facility] HYDROcodone -acetaminop hen (NORCO 5) 5-325 mg tablet 1 tablet 2022-07 01:13: 22 05-15 02:05 :19 No 1{tbl} 1 tablet, Oral, Q6HPRN, Starting on Tue05/13/23 at 2012, Until 05/14/23 at 210, Routine, Pain (scale 4-6) [facility] ibuprofen (IBU) tablet 600 mg 2022-07 01:13: 19 05-15 02:05 :19 No 600mg 600 mg, Oral, Q6HPRN, Starting on Tue05/13/23 at 2012, Until 05/14/23 at 210, Routine, Pain (scale 1-3) [facility] bupivacaine (preserv free) 0.5% (SENSORCAIN E MPF) injection 2022-07 00:57: 00 05-15 02:05 :19 No PRN, Starting on Tue05/13/23 at 1957, Until 05/14/23 at 2105, Routine, Intra-op [facility] sodium chloride 0.9 % irrigation solution 2022-07 00:30: 00 05-14 02:41 :13 No PRN, Starting on Tue05/13/23 at 1930, Until Tue05/13/23 at 2141, Intra-op [facility] HYDROcodone -acetaminop hen 5-325 mg tablet 2022-07 00:00: 00 05-22 04:59 :00 No [id number] 1{tbl} Take 1 tablet by mouth every 6 (six) hours as needed for Pain (scale 4-6) or Pain (scale 7-10) for up to 7 days. Indication s: acute pain [facility] morpHINE (2 mg/mL) injection 2 mg 2022-07 22:45: 00 05-13 22:48 :00 No 2mg 2 mg, Slow IV Push, ONCE, 1 dose, On Tue05/13/23 at 1745, STAT [facility] ondansetron (ZOFRAN (PF)) injection 4 mg 2022-07 21:00: 00 05-13 21:04 :00 No 4mg 4 mg, Slow IV Push, ONCE, 1 dose, On Tue05/13/23 at 1600, SHAMAR [facility] morpHINE (4 mg/mL) injection 4 mg 2022-07 21:00: 00 05-13 21:03 :00 No 4mg 4 mg, Slow IV Push, ONCE, 1 dose, On Tue05/13/23 at 1600, STAT [facility] fluconazole (DIFLUCAN) 150 mg tablet 03-04 00:00: 00 03-05 04:59 :00 No [id number] 150mg Take 1 tablet by mouth once now for 1 dose. [facility] morpHINE (2 mg/mL) injection 2 mg 03-01 15:39: 37 Yes 2mg 2 mg, Slow IV Push, Q5MIN PRN, 5 doses, Starting on Tue03/01/23 at 1039, Until Discontinu ed, Routine, Pain (scale 4-6), PACU [facility] ondansetron (ZOFRAN (PF)) injection 4 mg 03-01 15:39: 37 Yes 4mg 4 mg, Slow IV Push, PRN, 1 dose, Starting on Tue03/01/23 at 1039, Until Discontinu ed, Routine, Nausea and Vomiting (N/V), PACU [facility] sodium chloride 0.9 % irrigation solution 03-01 14:30: 00 03-01 16:08 :26 No PRN, Starting on Tue03/01/23 at 0930, Until Tue03/01/23 at 1108, Intra-op [facility] iohexoL (OMNIPAQUE 300-50 mL)) injection 03-01 14:30: 00 03-01 16:08 :26 No PRN, Starting on Tue03/01/23 at 0930, Until Tue03/01/23 at 1108, Routine, [facility] bupivacaine (preserv free) (SENSORCAIN E MPF) 0.25 % (2.5 mg/mL) 30 mL, lidocaine-e pinephrine (XYLOCAINE WITH EPINEPHRINE ) 1 %-1:100,000 30 mL 03-01 14:28: 00 03-01 16:08 :26 No PRN, Starting on Tue03/01/23 at 0928, Intra-op [facility] lactated ringers IV infusion 1,000 mL 03-01 13:30: 00 03-01 13:37 :00 No 1000mL at 42 mL/hr, 1,000 mL, IV Infusion, ONCE, 1 dose, On Tue03/01/23 at 0830, Routine, DSU Pre-op [facility] ibuprofen 800 mg tablet 03-01 00:00: 00 05-10 00:00 :00 No [id number] 800mg Take 1 tablet by mouth every 6 (six) hours as needed for Pain (scale 4-6). [facility] HYDROcodone -acetaminop hen (NORCO) 5-325 mg tablet 03-01 00:00: 00 03-09 04:59 :00 No [id number] 1{tbl} Take 1 tablet by mouth every 6 (six) hours as needed for Pain (scale 7-10) for up to 7 days. Indication s: acute pain [facility] fluconazole (DIFLUCAN) 150 mg tablet 15 00:00: 00 12-31 04:59 :00 No [id number] 150mg Take 1 tablet by mouth once now for 1 dose. [facility] omeprazole 20 mg capsule 4-28 00:00: 00 11-27 04:59 :00 No [id number] 20mg Take 1 capsule by mouth in the morning for 14 days. [facility] triamcinolo ne acetonide 0.1 % cream 3-03 00:00: 00 03-01 00:00 :00 No [id number] Apply to area(s) 2 (two) times daily. [facility] metroNIDAZO LE 500 mg tablet 3- 00:00: 00 09-25 05:59 :00 No [id number] 500mg Take 1 tablet by mouth every 12 (twelve) hours for 7 days. [facility] levonorgest reL (KYLEENA) IUD 1 Device 2021-07 17:15: 00 06-09 16:22 :00 No [id number] 1{devic e} [facility] miSOPROStoL 200 mcg tablet 2021-07 00:00: 00 06-09 00:00 :00 No [id number] 200ug Take 1 tablet by mouth SEE-INSTRU CTIONS. Take one tab the night before and one tab the morning of procedure [facility] fluoxetine HCl (PROZAC ORAL) 2021-07 0 08:16: 25 04-21 00:00 :00 No Take by mouth. [facility] famotidine (PEPCID (PF)) injection 20 mg 2021-07 0-05 01:00: 00 04-20 22:33 :17 No 20mg 20 mg, Slow IV Push, Q12H, 4 doses, First dose on Tue04/20/22 at 2000, Last dose on Tue04/22/22 at 0800, Routine [facility] vitamin w/FA tablet 2021-07 0-05 00:00: 00 Yes [id number] 1{tbl} Take 1 tablet by mouth in the morning. [facility] docusate 100 mg capsule 2021-07 0-05 00:00: 00 Yes [id number] 200mg Take 2 capsules by mouth once daily as needed for Constipati on. [facility] ibuprofen 600 mg tablet 2021-07 0-05 00:00: 00 Yes [id number] 600mg Take 1 tablet by mouth every 6 (six) hours as needed (Pain). Take with food or milk. [facility] ferrous sulfate 325 mg (65 mg iron) tablet 2021-07 0-05 00:00: 00 03-01 00:00 :00 No [id number] 325mg Take 1 tablet by mouth in the morning and 1 tablet in the evening. [facility] rho(D) immune globulin (RHOGAM) syringe 300 mcg 2021-07 0 22:33: 32 Yes 300ug 300 mcg, Intramuscu lar, ONCE, For 1 dose, Conditiona l, Routine [facility] HYDROcodone -acetaminop hen (NORCO 5) 5-325 mg tablet 1 tablet 2021-07 0 22:33: 28 Yes 1{tbl} 1 tablet, Oral, Q6HPRN, Starting on Tue04/20/22 at 1733, Until Discontinu ed, Routine, Pain (scale 7-10) [facility] ibuprofen (IBU) tablet 600 mg 2021-07 22:33: 28 Yes 600mg 600 mg, Oral, Q6HPRN, Starting on Tue04/20/22 at 1733, Until Discontinu ed, Routine, Pain (scale 4-6) [facility] acetaminoph en (TYLENOL) tablet 650 mg 2021-07 0 22:33: 28 Yes 650mg 650 mg, Oral, Q6HPRN, Starting on Tue04/20/22 at 1733, Until Discontinu ed, Routine, Pain (scale 1-3) [facility] diphenhydrA MINE (BENADRYL) tablet 25 mg 2021-07 0 22:33: 28 Yes 25mg 25 mg, Oral, Q6HPRN, Starting on Tue04/20/22 at 1733, Until Discontinu ed, Routine, Sleep, Itching [facility] ondansetron (ZOFRAN (PF)) injection 4 mg 2021-07 0 22:33: 28 Yes 4mg 4 mg, Slow IV Push, Q8HPRN, Starting on Tue04/20/22 at 1733, Until Discontinu ed, Routine, Nausea and Vomiting (N/V) [facility] simethicone (GAS RELIEF (SIMETHICON E)) chewable tablet 160 mg 2021-07 004 22:33: 28 Yes 160mg 160 mg, Oral, PC+HSPRN, Starting on Tue04/20/22 at 1733, Until Discontinu ed, Routine, Gas [facility] docusate (COLACE) capsule 200 mg 2021-07 0 22:33: 28 Yes 200mg 200 mg, Oral, QDAILYPRN, Starting on Tue04/20/22 at 1733, Until Discontinu ed, Routine, Constipati on [facility] magnesium hydroxide (MILK OF MAGNESIA) 400 mg/5 mL suspension 30 mL 2021-07 0 22:33: 28 Yes 30mL 30 mL, Oral, QDAILYPRN, Starting on Tue04/20/22 at 1733, Until Discontinu ed, Routine, Constipati on [facility] benzocaine- menthol (DERMOPLAST ) 20-0.5 % topical spray 2021-07 0 22:33: 28 Yes Topical, PRN, Starting on Tue04/20/22 at 1733, Until Discontinu ed, Routine, Perineum discomfort [facility] witch Renuka (TUCKS) 50 % topical pad 2021-07 0 22:33: 17 Yes Topical, Q4HPRN, Starting on Tue04/20/22 at 1733, Until Discontinu ed, Routine, rectal/hem orrhoidal pain [facility] fluoxetine HCl (PROZAC ORAL) 2021-07 0 17:24: 43 Yes Take by mouth. [facility] PIB fentaNYL-ro pivacaine 2 mcg/mL-0.1 % (PF) in NS 200 mL epidural infusion RTU 2021-07 004 14:11: 00 04-20 23:30 :10 No Epidural, ONCE INTRA PROCEDURE, Starting on Tue04/20/22 at 0911, Until Tue04/20/22 at 1830, Routine, Intra-op [facility] lidocaine-e pinephrine (XYLOCAINE W/EPINEPHRI NE) 1.5 %-1:200,000 injection 2021-07 004 14:10: 00 04-20 23:30 :10 No Epidural, ONCE INTRA PROCEDURE, Starting on Tue04/20/22 at 0910, Until Tue04/20/22 at 1830, Routine, Intra-op [facility] lidocaine 1% (XYLOCAINE) 100 mg/10 mL (1 %) injection 2021-07 0 14:10: 00 04-20 23:30 :10 No Infiltrati on, ONCE INTRA PROCEDURE, Starting on Tue04/20/22 at 0910, Until Tue04/20/22 at 1830, Routine, Intra-op [facility] lactated ringers IV infusion 500 mL 2021-07 08:45: 00 04-20 10:42 :00 No 500mL at 999 mL/hr, 500 mL, IV Infusion, ONCE, 1 dose, On Tue04/20/22 at 0345, Routine [facility] lactated ringers IV infusion 500 mL 2021-07 08:43: 17 04-20 22:33 :21 No 500mL at 999 mL/hr, 500 mL, IV Infusion, PRN - SEE INSTRUCTIO NS, Starting on Tue04/20/22 at 0343, Until Tue04/20/22 at 1733, Routine [facility] FENTanyl PF (SUBLIMAZE (PF)) injection 100 mcg 2021-07 08:43: 17 04-20 22:33 :17 No 100ug 100 mcg, Slow IV Push, Q1HPRN, Starting on Tue04/20/22 at 0343, Until Tue04/20/22 at 1733, Routine, contractio n pain without an epidural and SVE < 8 cm and Cat I strip [facility] oxytocin (PITOCIN) 30 units in NS 500 mL IV infusion 2021-07 08:43: 17 04-20 22:33 :21 No 2mU/min at 2-40 mL/hr, IV Infusion, TITRATE, Starting on Tue04/20/22 at 0343, Until Tue04/20/22 at 1733, SHAMAR [facility] sodium citrate-cit xi acid (BICITRA) 500-334 mg/5 mL solution 30 mL 2021-07 004 08:43: 17 04-20 12:59 :00 No 30mL 30 mL, Oral, PRE-PROCED URE ONCE, 1 dose, Starting on Tue04/20/22 at 0343, Until Discontinu ed, Routine, Surgery/Pr ocedure [facility] [facility] [id number] IV infusion 1,000 mL 2021-07 0-04 08:43: 17 04-20 22:33 :21 No 1000mL at 1-125 mL/hr, IV Infusion, TITRATE, Starting on Tue04/20/22 at 0343, Until Tue04/20/22 at 1733, Routine [facility] lactated ringers IV infusion 500 mL 2021-07 0-04 08:43: 16 04-20 14:46 :00 No 500mL at 999 mL/hr, 500 mL, IV Infusion, PRN - SEE INSTRUCTIO NS, 1 dose, Starting on Tue04/20/22 at 0343, Until Discontinu ed, Routine [facility] 25/iron fum/folic/d tolliver (-1 ORAL) 9- 10:08: 05 Yes Take by mouth. [facility] 25/iron fum/folic/d tolliver (-1 ORAL) 04-01 11:23: 13 Yes Take by mouth. [facility] famotidine 40 mg tablet 04-01 00:00: 00 04-21 00:00 :00 No [id number] 40mg Take 1 tablet by mouth in the morning. [facility] clindamycin (CLEOCIN) 100 mg vaginal suppository - 00:00: 00 04-01 00:00 :00 No [id number] 100mg Insert 1 Suppositor y into vagina at bedtime. [facility] famotidine 40 mg tablet - 00:00: 00 04-01 00:00 :00 No [id number] 40mg Take 1 tablet by mouth in the morning. [facility] fluoxetine HCl (PROZAC ORAL) 15 21:39: 50 Yes Take by mouth. [facility] metroNIDAZO LE 500 mg tablet 6- 00:00: 00 04-01 00:00 :00 No [id number] 500mg Take 1 tablet by mouth every 12 (twelve) hours. [facility] azithromyci n 500 mg tablet 10-16 00:00: 00 04-01 00:00 :00 No [id number] 500mg Take 1 tablet by mouth daily. [facility] metoclopram yamini HCl 10 mg tablet 3-30 00:00: 00 04-21 00:00 :00 No [id number] 10mg Take 1 tablet by mouth every 6 (six) hours as needed for Nausea and Vomiting (N/V). [facility] fluticasone propionate 50 mcg/actuati on nasal spray 2018-07 00:00: 00 04-21 00:00 :00 No [id number] 2{spray } Use 2 Sprays in each nostril daily. [facility] ARIPiprazol e 10 mg tablet 2018-07 00:00: 00 04-21 00:00 :00 No 10mg Take 10 mg by mouth daily. [facility] SERTraline (ZOLOFT) 50 mg tablet 04-11 00:00: 00 04-21 00:00 :00 No [id number] Take 1 tab po daily [facility] Immunizations Ordered Immunization Name Filled Immunization Name Date Status Comments Source Influenza, split virus, trivalent, PF (AFLURIA/FLUARIX/FL ULAVAL/FLUZONE) 2025-03-22 00:00:00 Completed [facility] TDAP 2022-02-02 00:00:00 Completed [facility] TDAP 2022-02-02 00:00:00 Completed [facility] TDAP 2022-02-02 00:00:00 Completed [facility] TDAP 2022-02-02 00:00:00 Completed [facility] TDAP 2022-02-02 00:00:00 Completed [facility] TDAP 2022-02-02 00:00:00 Completed [facility] TDAP 2022-02-02 00:00:00 Completed [facility] TDAP 2022-02-02 00:00:00 Completed [facility] TDAP 2022-02-02 00:00:00 Completed [facility] TDAP 2022-02-02 00:00:00 Completed [facility] TDAP 2022-02-02 00:00:00 Completed [facility] TDAP 2022-02-02 00:00:00 Completed [facility] TDAP 2022-02-02 00:00:00 Completed [facility] TDAP 2022-02-02 00:00:00 Completed [facility] TDAP 2022-02-02 00:00:00 Completed [facility] TDAP 2022-02-02 00:00:00 Completed [facility] TDAP 2022-02-02 00:00:00 Completed [facility] TDAP 2022-02-02 00:00:00 Completed [facility] TDAP 2022-02-02 00:00:00 Completed [facility] TDAP 2022-02-02 00:00:00 Completed [facility] TDAP 2022-02-02 00:00:00 Completed [facility] TDAP 2022-02-02 00:00:00 Completed [facility] TDAP 2022-02-02 00:00:00 Completed [facility] TDAP 2022-02-02 00:00:00 Completed [facility] TDAP 2022-02-02 00:00:00 Completed [facility] TDAP 2022-02-02 00:00:00 Completed [facility] TDAP 2022-02-02 00:00:00 Completed [facility] TDAP 2022-02-02 00:00:00 Completed [facility] TDAP 2022-02-02 00:00:00 Completed [facility] TDAP 2022-02-02 00:00:00 Completed [facility] TDAP 2022-02-02 00:00:00 Completed [facility] TDAP 2022-02-02 00:00:00 Completed [facility] TDAP 2022-02-02 00:00:00 Completed [facility] TDAP 2022-02-02 00:00:00 Completed [facility] TDAP 2022-02-02 00:00:00 Completed [facility] TDAP 2022-02-02 00:00:00 Completed [facility] TDAP 2022-02-02 00:00:00 Completed [facility] TDAP 2022-02-02 00:00:00 Completed [facility] TDAP 2022-02-02 00:00:00 Completed [facility] Influenza Virus Vaccine Quad IM, Preserv and ABX Free 6 MO-64 YRS 2021-10-14 00:00:00 Completed [facility] Influenza Virus Vaccine Quad IM, Preserv and ABX Free 6 MO-64 2021-10-14 00:00:00 Completed [facility] Influenza Virus Vaccine Quad IM, Preserv and ABX Free 6 MO-64 YRS 2021-10-14 00:00:00 Completed [facility] Influenza Virus Vaccine Quad IM, Preserv and ABX Free 6 MO-64 YRS 2021-10-14 00:00:00 Completed [facility] Influenza Virus Vaccine Quad IM, Preserv and ABX Free 6 MO-64 YRS 2021-10-14 00:00:00 Completed [facility] Influenza Virus Vaccine Quad IM, Preserv and ABX Free 6 MO-64 2021-10-14 00:00:00 Completed [facility] Influenza Virus Vaccine Quad IM, Preserv and ABX Free 6 MO-64 2021-10-14 00:00:00 Completed [facility] Influenza Virus Vaccine Quad IM, Preserv and ABX Free 6 MO-64 YRS 2021-10-14 00:00:00 Completed [facility] Influenza Virus Vaccine Quad IM, Preserv and ABX Free 6 MO-64 YRS 2021-10-14 00:00:00 Completed [facility] Influenza Virus Vaccine Quad IM, Preserv and ABX Free 6 MO-64 2021-10-14 00:00:00 Completed [facility] Influenza Virus Vaccine Quad IM, Preserv and ABX Free 6 MO-64 2021-10-14 00:00:00 Completed [facility] Influenza Virus Vaccine Quad IM, Preserv and ABX Free 6 MO-64 2021-10-14 00:00:00 Completed [facility] Influenza Virus Vaccine Quad IM, Preserv and ABX Free 6 MO-64 YRS 2021-10-14 00:00:00 Completed [facility] Influenza Virus Vaccine Quad IM, Preserv and ABX Free 6 MO-64 YRS 2021-10-14 00:00:00 Completed [facility] Influenza Virus Vaccine Quad IM, Preserv and ABX Free 6 MO-64 YRS 2021-10-14 00:00:00 Completed [facility] Influenza Virus Vaccine Quad IM, Preserv and ABX Free 6 MO-64 YRS 2021-10-14 00:00:00 Completed [facility] Influenza Virus Vaccine Quad IM, Preserv and ABX Free 6 MO-64 YRS 2021-10-14 00:00:00 Completed [facility] Influenza Virus Vaccine Quad IM, Preserv and ABX Free 6 MO-64 YRS 2021-10-14 00:00:00 Completed [facility] Influenza Virus Vaccine Quad IM, Preserv and ABX Free 6 MO-64 YRS 2021-10-14 00:00:00 Completed [facility] Influenza Virus Vaccine Quad IM, Preserv and ABX Free 6 MO-64 YRS 2021-10-14 00:00:00 Completed [facility] Influenza Virus Vaccine Quad IM, Preserv and ABX Free 6 MO-64 YRS 2021-10-14 00:00:00 Completed [facility] Influenza Virus Vaccine Quad IM, Preserv and ABX Free 6 MO-64 YRS 2021-10-14 00:00:00 Completed [facility] Influenza Virus Vaccine Quad IM, Preserv and ABX Free 6 MO-64 YRS 2021-10-14 00:00:00 Completed [facility] Influenza Virus Vaccine Quad IM, Preserv and ABX Free 6 MO-64 YRS 2021-10-14 00:00:00 Completed [facility] Influenza Virus Vaccine Quad IM, Preserv and ABX Free 6 MO-64 YRS 2021-10-14 00:00:00 Completed [facility] Influenza Virus Vaccine Quad IM, Preserv and ABX Free 6 MO-64 YRS 2021-10-14 00:00:00 Completed [facility] Influenza Virus Vaccine Quad IM, Preserv and ABX Free 6 MO-64 YRS 2021-10-14 00:00:00 Completed [facility] Influenza Virus Vaccine Quad IM, Preserv and ABX Free 6 MO-64 YRS 2021-10-14 00:00:00 Completed [facility] Influenza Virus Vaccine Quad IM, Preserv and ABX Free 6 MO-64 YRS 2021-10-14 00:00:00 Completed [facility] Influenza Virus Vaccine Quad IM, Preserv and ABX Free 6 MO-64 YRS 2021-10-14 00:00:00 Completed [facility] Influenza Virus Vaccine Quad IM, Preserv and ABX Free 6 MO-64 YRS 2021-10-14 00:00:00 Completed [facility] Influenza Virus Vaccine Quad IM, Preserv and ABX Free 6 MO-64 YRS 2021-10-14 00:00:00 Completed [facility] Influenza Virus Vaccine Quad IM, Preserv and ABX Free 6 MO-64 YRS 2021-10-14 00:00:00 Completed [facility] Influenza Virus Vaccine Quad IM, Preserv and ABX Free 6 MO-64 YRS 2021-10-14 00:00:00 Completed [facility] Influenza Virus Vaccine Quad IM, Preserv and ABX Free 6 MO-64 YRS 2021-10-14 00:00:00 Completed [facility] Influenza Virus Vaccine Quad IM, Preserv and ABX Free 6 MO-64 YRS 2021-10-14 00:00:00 Completed [facility] Influenza Virus Vaccine Quad IM, Preserv and ABX Free 6 MO-64 YRS 2021-10-14 00:00:00 Completed [facility] Influenza Virus Vaccine Quad IM, Preserv and ABX Free 6 MO-64 YRS (FLUCELVAX) 2021-10-14 00:00:00 Completed [facility] Influenza Virus Vaccine Quad IM, Preserv and ABX Free 6 MO-64 YRS (FLUCELVAX) 2021-10-14 00:00:00 Completed [facility] Influenza Virus Vaccine Quad .5 mL IM 6+ MO 2019-04-25 00:00:00 Completed [facility] Influenza Virus Vaccine Quad .5 mL IM 6+ MO 2019-04-25 00:00:00 Completed [facility] Influenza Virus Vaccine Quad .5 mL IM 6+ MO 2019-04-25 00:00:00 Completed [facility] Influenza Virus Vaccine Quad .5 mL IM 6+ MO 2019-04-25 00:00:00 Completed [facility] Influenza Virus Vaccine Quad .5 mL IM 6+ MO 2019-04-25 00:00:00 Completed [facility] Influenza Virus Vaccine Quad .5 mL IM 6+ MO 2019-04-25 00:00:00 Completed [facility] Influenza Virus Vaccine Quad .5 mL IM 6+ MO 2019-04-25 00:00:00 Completed [facility] Influenza Virus Vaccine Quad .5 mL IM 6+ MO 2019-04-25 00:00:00 Completed [facility] Influenza Virus Vaccine Quad .5 mL IM 6+ MO 2019-04-25 00:00:00 Completed [facility] Influenza Virus Vaccine Quad .5 mL IM 6+ MO 2019-04-25 00:00:00 Completed [facility] Influenza Virus Vaccine Quad .5 mL IM 6+ MO 2019-04-25 00:00:00 Completed [facility] Influenza Virus Vaccine Quad .5 mL IM 6+ MO 2019-04-25 00:00:00 Completed [facility] Influenza Virus Vaccine Quad .5 mL IM 6+ MO 2019-04-25 00:00:00 Completed [facility] Influenza Virus Vaccine Quad .5 mL IM 6+ MO 2019-04-25 00:00:00 Completed [facility] Influenza Virus Vaccine Quad .5 mL IM 6+ MO 2019-04-25 00:00:00 Completed [facility] Influenza Virus Vaccine Quad .5 mL IM 6+ MO 2019-04-25 00:00:00 Completed [facility] Influenza Virus Vaccine Quad .5 mL IM 6+ MO 2019-04-25 00:00:00 Completed [facility] Influenza Virus Vaccine Quad .5 mL IM 6+ MO 2019-04-25 00:00:00 Completed [facility] Influenza Virus Vaccine Quad .5 mL IM 6+ MO 2019-04-25 00:00:00 Completed [facility] Influenza Virus Vaccine Quad .5 mL IM 6+ MO 2019-04-25 00:00:00 Completed [facility] Influenza Virus Vaccine Quad .5 mL IM 6+ MO 2019-04-25 00:00:00 Completed [facility] Influenza Virus Vaccine Quad .5 mL IM 6+ MO 2019-04-25 00:00:00 Completed [facility] Influenza Virus Vaccine Quad .5 mL IM 6+ MO 2019-04-25 00:00:00 Completed [facility] Influenza Virus Vaccine Quad .5 mL IM 6+ MO 2019-04-25 00:00:00 Completed [facility] Influenza Virus Vaccine Quad .5 mL IM 6+ MO 2019-04-25 00:00:00 Completed [facility] Influenza Virus Vaccine Quad .5 mL IM 6+ MO 2019-04-25 00:00:00 Completed [facility] Influenza Virus Vaccine Quad .5 mL IM 6+ MO 2019-04-25 00:00:00 Completed [facility] Influenza Virus Vaccine Quad .5 mL IM 6+ MO 2019-04-25 00:00:00 Completed [facility] Influenza Virus Vaccine Quad .5 mL IM 6+ MO 2019-04-25 00:00:00 Completed [facility] Influenza Virus Vaccine Quad .5 mL IM 6+ MO 2019-04-25 00:00:00 Completed [facility] Influenza Virus Vaccine Quad .5 mL IM 6+ MO 2019-04-25 00:00:00 Completed [facility] Influenza Virus Vaccine Quad .5 mL IM 6+ MO 2019-04-25 00:00:00 Completed [facility] Influenza Virus Vaccine Quad .5 mL IM 6+ MO 2019-04-25 00:00:00 Completed [facility] Influenza Virus Vaccine Quad .5 mL IM 6+ MO 2019-04-25 00:00:00 Completed [facility] Influenza Virus Vaccine Quad .5 mL IM 6+ MO 2019-04-25 00:00:00 Completed [facility] Influenza Virus Vaccine Quad .5 mL IM 6+ MO 2019-04-25 00:00:00 Completed [facility] Influenza Virus Vaccine Quad .5 mL IM 6+ MO 2019-04-25 00:00:00 Completed [facility] Influenza Virus Vaccine Quad .5 mL IM 6+ MO (FLUZONE/FLULAVAL/F LUARIX) 2019-04-25 00:00:00 Completed [facility] Influenza Virus Vaccine Quad .5 mL IM 6+ MO (FLUZONE/FLULAVAL/F LUARIX) 2019-04-25 00:00:00 Completed [facility] Influenza Virus Vaccine Quad .5 mL IM 6+ MO 2018-11-07 00:00:00 Completed [facility] Influenza Virus Vaccine Quad .5 mL IM 6+ MO 2018-11-07 00:00:00 Completed [facility] Influenza Virus Vaccine Quad .5 mL IM 6+ MO 2018-11-07 00:00:00 Completed [facility] Influenza Virus Vaccine Quad .5 mL IM 6+ MO 2018-11-07 00:00:00 Completed [facility] Influenza Virus Vaccine Quad .5 mL IM 6+ MO 2018-11-07 00:00:00 Completed [facility] Influenza Virus Vaccine Quad .5 mL IM 6+ MO 2018-11-07 00:00:00 Completed [facility] Influenza Virus Vaccine Quad .5 mL IM 6+ MO 2018-11-07 00:00:00 Completed [facility] Influenza Virus Vaccine Quad .5 mL IM 6+ MO 2018-11-07 00:00:00 Completed [facility] Influenza Virus Vaccine Quad .5 mL IM 6+ MO 2018-11-07 00:00:00 Completed [facility] Influenza Virus Vaccine Quad .5 mL IM 6+ MO 2018-11-07 00:00:00 Completed [facility] Influenza Virus Vaccine Quad .5 mL IM 6+ MO 2018-11-07 00:00:00 Completed [facility] Influenza Virus Vaccine Quad .5 mL IM 6+ MO 2018-11-07 00:00:00 Completed [facility] Influenza Virus Vaccine Quad .5 mL IM 6+ MO 2018-11-07 00:00:00 Completed [facility] Influenza Virus Vaccine Quad .5 mL IM 6+ MO 2018-11-07 00:00:00 Completed [facility] Influenza Virus Vaccine Quad .5 mL IM 6+ MO 2018-11-07 00:00:00 Completed [facility] Influenza Virus Vaccine Quad .5 mL IM 6+ MO 2018-11-07 00:00:00 Completed [facility] Influenza Virus Vaccine Quad .5 mL IM 6+ MO 2018-11-07 00:00:00 Completed [facility] Influenza Virus Vaccine Quad .5 mL IM 6+ MO 2018-11-07 00:00:00 Completed [facility] Influenza Virus Vaccine Quad .5 mL IM 6+ MO 2018-11-07 00:00:00 Completed [facility] Influenza Virus Vaccine Quad .5 mL IM 6+ MO 2018-11-07 00:00:00 Completed [facility] Influenza Virus Vaccine Quad .5 mL IM 6+ MO 2018-11-07 00:00:00 Completed [facility] Influenza Virus Vaccine Quad .5 mL IM 6+ MO 2018-11-07 00:00:00 Completed [facility] Influenza Virus Vaccine Quad .5 mL IM 6+ MO 2018-11-07 00:00:00 Completed [facility] Influenza Virus Vaccine Quad .5 mL IM 6+ MO 2018-11-07 00:00:00 Completed [facility] Influenza Virus Vaccine Quad .5 mL IM 6+ MO 2018-11-07 00:00:00 Completed [facility] Influenza Virus Vaccine Quad .5 mL IM 6+ MO 2018-11-07 00:00:00 Completed [facility] Influenza Virus Vaccine Quad .5 mL IM 6+ MO 2018-11-07 00:00:00 Completed [facility] Influenza Virus Vaccine Quad .5 mL IM 6+ MO 2018-11-07 00:00:00 Completed [facility] Influenza Virus Vaccine Quad .5 mL IM 6+ MO 2018-11-07 00:00:00 Completed [facility] Influenza Virus Vaccine Quad .5 mL IM 6+ MO 2018-11-07 00:00:00 Completed [facility] Influenza Virus Vaccine Quad .5 mL IM 6+ MO 2018-11-07 00:00:00 Completed [facility] Influenza Virus Vaccine Quad .5 mL IM 6+ MO 2018-11-07 00:00:00 Completed [facility] Influenza Virus Vaccine Quad .5 mL IM 6+ MO 2018-11-07 00:00:00 Completed [facility] Influenza Virus Vaccine Quad .5 mL IM 6+ MO 2018-11-07 00:00:00 Completed [facility] Influenza Virus Vaccine Quad .5 mL IM 6+ MO 2018-11-07 00:00:00 Completed [facility] Influenza Virus Vaccine Quad .5 mL IM 6+ MO 2018-11-07 00:00:00 Completed [facility] Influenza Virus Vaccine Quad .5 mL IM 6+ MO 2018-11-07 00:00:00 Completed [facility] Influenza Virus Vaccine Quad .5 mL IM 6+ MO (FLUZONE/FLULAVAL/F LUARIX) 2018-11-07 00:00:00 Completed [facility] Influenza Virus Vaccine Quad .5 mL IM 6+ MO (FLUZONE/FLULAVAL/F LUARIX) 2018-11-07 00:00:00 Completed TDAP 2017-06-13 00:00:00 Completed [facility] TDAP 2017-06-13 00:00:00 Completed [facility] TDAP 2017-06-13 00:00:00 Completed [facility] TDAP 2017-06-13 00:00:00 Completed [facility] TDAP 2017-06-13 00:00:00 Completed [facility] TDAP 2017-06-13 00:00:00 Completed [facility] TDAP 2017-06-13 00:00:00 Completed [facility] TDAP 2017-06-13 00:00:00 Completed [facility] TDAP 2017-06-13 00:00:00 Completed [facility] TDAP 2017-06-13 00:00:00 Completed [facility] TDAP 2017-06-13 00:00:00 Completed [facility] TDAP 2017-06-13 00:00:00 Completed [facility] TDAP 2017-06-13 00:00:00 Completed [facility] TDAP 2017-06-13 00:00:00 Completed [facility] TDAP 2017-06-13 00:00:00 Completed [facility] TDAP 2017-06-13 00:00:00 Completed [facility] TDAP 2017-06-13 00:00:00 Completed [facility] TDAP 2017-06-13 00:00:00 Completed [facility] TDAP 2017-06-13 00:00:00 Completed [facility] TDAP 2017-06-13 00:00:00 Completed [facility] TDAP 2017-06-13 00:00:00 Completed [facility] TDAP 2017-06-13 00:00:00 Completed [facility] TDAP 2017-06-13 00:00:00 Completed [facility] TDAP 2017-06-13 00:00:00 Completed [facility] TDAP 2017-06-13 00:00:00 Completed [facility] TDAP 2017-06-13 00:00:00 Completed [facility] TDAP 2017-06-13 00:00:00 Completed [facility] TDAP 2017-06-13 00:00:00 Completed [facility] TDAP 2017-06-13 00:00:00 Completed [facility] TDAP 2017-06-13 00:00:00 Completed [facility] TDAP 2017-06-13 00:00:00 Completed [facility] TDAP 2017-06-13 00:00:00 Completed [facility] TDAP 2017-06-13 00:00:00 Completed [facility] TDAP 2017-06-13 00:00:00 Completed [facility] TDAP 2017-06-13 00:00:00 Completed [facility] TDAP 2017-06-13 00:00:00 Completed [facility] TDAP 2017-06-13 00:00:00 Completed [facility] TDAP 2017-06-13 00:00:00 Completed [facility] TDAP 2017-06-13 00:00:00 Completed Influenza Virus Vaccine Quad IM 3+ YRS 2017-05-23 00:00:00 Completed [facility] Influenza Virus Vaccine Quad IM 3+ YRS 2017-05-23 00:00:00 Completed [facility] Influenza Virus Vaccine Quad IM 3+ 2017-05-23 00:00:00 Completed [facility] Influenza Virus Vaccine Quad IM 3+ YRS 2017-05-23 00:00:00 Completed [facility] Influenza Virus Vaccine Quad IM 3+ YRS 2017-05-23 00:00:00 Completed [facility] Influenza Virus Vaccine Quad IM 3+ YRS 2017-05-23 00:00:00 Completed [facility] Influenza Virus Vaccine Quad IM 3+ YRS 2017-05-23 00:00:00 Completed [facility] Influenza Virus Vaccine Quad IM 3+ YRS 2017-05-23 00:00:00 Completed [facility] Influenza Virus Vaccine Quad IM 3+ YRS 2017-05-23 00:00:00 Completed [facility] Influenza Virus Vaccine Quad IM 3+ YRS 2017-05-23 00:00:00 Completed [facility] Influenza Virus Vaccine Quad IM 3+ YRS 2017-05-23 00:00:00 Completed [facility] Influenza Virus Vaccine Quad IM 3+ YRS 2017-05-23 00:00:00 Completed [facility] Influenza Virus Vaccine Quad IM 3+ YRS 2017-05-23 00:00:00 Completed [facility] Influenza Virus Vaccine Quad IM 3+ YRS 2017-05-23 00:00:00 Completed [facility] Influenza Virus Vaccine Quad IM 3+ YRS 2017-05-23 00:00:00 Completed [facility] Influenza Virus Vaccine Quad IM 3+ YRS 2017-05-23 00:00:00 Completed [facility] Influenza Virus Vaccine Quad IM 3+ YRS 2017-05-23 00:00:00 Completed [facility] Influenza Virus Vaccine Quad IM 3+ YRS 2017-05-23 00:00:00 Completed [facility] Influenza Virus Vaccine Quad IM 3+ YRS 2017-05-23 00:00:00 Completed [facility] Influenza Virus Vaccine Quad IM 3+ YRS 2017-05-23 00:00:00 Completed [facility] Influenza Virus Vaccine Quad IM 3+ YRS 2017-05-23 00:00:00 Completed [facility] Influenza Virus Vaccine Quad IM 3+ YRS 2017-05-23 00:00:00 Completed [facility] Influenza Virus Vaccine Quad IM 3+ YRS 2017-05-23 00:00:00 Completed [facility] Influenza Virus Vaccine Quad IM 3+ YRS 2017-05-23 00:00:00 Completed [facility] Influenza Virus Vaccine Quad IM 3+ YRS 2017-05-23 00:00:00 Completed [facility] Influenza Virus Vaccine Quad IM 3+ YRS 2017-05-23 00:00:00 Completed [facility] Influenza Virus Vaccine Quad IM 3+ YRS 2017-05-23 00:00:00 Completed [facility] Influenza Virus Vaccine Quad IM 3+ YRS 2017-05-23 00:00:00 Completed [facility] Influenza Virus Vaccine Quad IM 3+ YRS 2017-05-23 00:00:00 Completed [facility] Influenza Virus Vaccine Quad IM 3+ YRS 2017-05-23 00:00:00 Completed [facility] Influenza Virus Vaccine Quad IM 3+ YRS 2017-05-23 00:00:00 Completed [facility] Influenza Virus Vaccine Quad IM 3+ YRS 2017-05-23 00:00:00 Completed [facility] Influenza Virus Vaccine Quad IM 3+ YRS 2017-05-23 00:00:00 Completed [facility] Influenza Virus Vaccine Quad IM 3+ YRS 2017-05-23 00:00:00 Completed [facility] Influenza Virus Vaccine Quad IM 3+ YRS 2017-05-23 00:00:00 Completed [facility] Influenza Virus Vaccine Quad IM 3+ YRS 2017-05-23 00:00:00 Completed [facility] Influenza Virus Vaccine Quad IM 3+ YRS 2017-05-23 00:00:00 Completed [facility] Influenza Virus Vaccine Quad IM 3+ YRS 2017-05-23 00:00:00 Completed [facility] Influenza Virus Vaccine Quad IM 3+ YRS 2017-05-23 00:00:00 Completed [facility] Influenza Virus Vaccine Quad IM 3+ YRS Unknown Completed [facility] TDAP Unknown Completed [facility] Influenza Virus Vaccine Quad IM, Preserv and ABX Free 6 MO-64 YRS (FLUCELVAX) Unknown Completed [facility] Influenza Virus Vaccine Quad IM 3+ YRS Unknown Completed [facility] TDAP Unknown Completed [facility] Influenza Virus Vaccine Quad IM, Preserv and ABX Free 6 MO-64 YRS (FLUCELVAX) Unknown Completed [facility] Influenza Virus Vaccine Quad IM 3+ YRS Unknown Completed [facility] TDAP Unknown Completed [facility] Influenza Virus Vaccine Quad IM, Preserv and ABX Free 6 MO-64 YRS (FLUCELVAX) Unknown Completed [facility] Influenza Virus Vaccine Quad IM 3+ YRS Unknown Completed [facility] TDAP Unknown Completed [facility] Influenza Virus Vaccine Quad IM, Preserv and ABX Free 6 MO-64 YRS (FLUCELVAX) Unknown Completed [facility] Influenza Virus Vaccine Quad IM 3+ YRS Unknown Completed [facility] TDAP Unknown Completed [facility] Influenza Virus Vaccine Quad IM, Preserv and ABX Free 6 MO-64 YRS (FLUCELVAX) Unknown Completed [facility] Influenza Virus Vaccine Quad IM 3+ YRS Unknown Completed [facility] TDAP Unknown Completed [facility] Influenza Virus Vaccine Quad IM, Preserv and ABX Free 6 MO-64 YRS (FLUCELVAX) Unknown Completed [facility] Influenza Virus Vaccine Quad IM 3+ YRS Unknown Completed [facility] TDAP Unknown Completed [facility] Influenza Virus Vaccine Quad IM, Preserv and ABX Free 6 MO-64 YRS (FLUCELVAX) Unknown Completed [facility] Influenza Virus Vaccine Quad IM 3+ YRS Unknown Completed [facility] TDAP Unknown Completed [facility] Influenza Virus Vaccine Quad IM, Preserv and ABX Free 6 MO-64 YRS (FLUCELVAX) Unknown Completed [facility] Influenza Virus Vaccine Quad IM 3+ YRS Unknown Completed [facility] TDAP Unknown Completed [facility] Influenza Virus Vaccine Quad IM, Preserv and ABX Free 6 MO-64 YRS (FLUCELVAX) Unknown Completed [facility] Influenza Virus Vaccine Quad IM 3+ YRS Unknown Completed [facility] TDAP Unknown Completed [facility] Influenza Virus Vaccine Quad IM, Preserv and ABX Free 6 MO-64 YRS (FLUCELVAX) Unknown Completed [facility] Influenza Virus Vaccine Quad IM 3+ YRS Unknown Completed [facility] TDAP Unknown Completed [facility] Influenza Virus Vaccine Quad IM, Preserv and ABX Free 6 MO-64 YRS (FLUCELVAX) Unknown Completed [facility] Influenza Virus Vaccine Quad IM 3+ YRS Unknown Completed [facility] TDAP Unknown Completed [facility] Influenza Virus Vaccine Quad IM, Preserv and ABX Free 6 MO-64 YRS (FLUCELVAX) Unknown Completed [facility] Influenza Virus Vaccine Quad IM 3+ YRS Unknown Completed [facility] TDAP Unknown Completed [facility] Influenza Virus Vaccine Quad IM, Preserv and ABX Free 6 MO-64 YRS (FLUCELVAX) Unknown Completed [facility] Influenza Virus Vaccine Quad IM 3+ YRS Unknown Completed [facility] TDAP Unknown Completed [facility] Influenza Virus Vaccine Quad IM, Preserv and ABX Free 6 MO-64 YRS (FLUCELVAX) Unknown Completed [facility] Influenza Virus Vaccine Quad IM 3+ YRS Unknown Completed [facility] TDAP Unknown Completed [facility] Influenza Virus Vaccine Quad IM, Preserv and ABX Free 6 MO-64 YRS (FLUCELVAX) Unknown Completed [facility] Influenza Virus Vaccine Quad IM 3+ YRS Unknown Completed [facility] TDAP Unknown Completed [facility] Influenza Virus Vaccine Quad IM, Preserv and ABX Free 6 MO-64 YRS (FLUCELVAX) Unknown Completed [facility] Influenza Virus Vaccine Quad IM 3+ YRS Unknown Completed [facility] TDAP Unknown Completed [facility] Influenza Virus Vaccine Quad IM, Preserv and ABX Free 6 MO-64 YRS (FLUCELVAX) Unknown Completed [facility] Influenza Virus Vaccine Quad IM 3+ YRS Unknown Completed [facility] TDAP Unknown Completed [facility] Influenza Virus Vaccine Quad IM, Preserv and ABX Free 6 MO-64 YRS (FLUCELVAX) Unknown Completed [facility] Influenza Virus Vaccine Quad IM 3+ YRS Unknown Completed [facility] TDAP Unknown Completed [facility] Influenza Virus Vaccine Quad IM, Preserv and ABX Free 6 MO-64 YRS (FLUCELVAX) Unknown Completed [facility] Influenza Virus Vaccine Quad IM 3+ YRS Unknown Completed [facility] TDAP Unknown Completed [facility] Influenza Virus Vaccine Quad IM, Preserv and ABX Free 6 MO-64 YRS (FLUCELVAX) Unknown Completed [facility] Vital Signs Vital Name Observation Time Observation Value Comments S ource Systolic blood pressure 2025-04-22 15:22:00 92 mm[Hg] [facility] Diastolic blood pressure 2025-04-22 15:22:00 52 mm[Hg] [facility] Heart rate 2025-04-22 15:14:00 67 /min [facility] Body temperature 2025-04-22 15:14:00 36.17 [facility] Body height 2025-04-22 15:14:00 154.9 cm [facility] Body weight 2025-04-22 15:14:00 66.769 kg [facility] BMI 2025-04-22 15:14:00 27.81 kg/m2 [facility] Systolic blood pressure 2025-03-22 15:06:00 105 mm[Hg] [facility] Diastolic blood pressure 2025-03-22 15:06:00 63 mm[Hg] [facility] Heart rate 2025-03-22 15:06:00 70 /min [facility] Body temperature 2025-03-22 15:06:00 36.83 [facility] Respiratory rate 2025-03-22 15:06:00 18 /min [facility] Body height 2025-03-22 15:06:00 154.9 cm [facility] Body weight 2025-03-22 15:06:00 60.827 kg [facility] BMI 2025-03-22 15:06:00 25.34 kg/m2 [facility] Oxygen saturation in Arterial blood by Pulse oximetry 2025-03-22 15:06:00 99 /min [facility] Systolic blood pressure 2024-07-28 20:33:00 110 mm[Hg] [facility] Diastolic blood pressure 2024-07-28 20:33:00 62 mm[Hg] [facility] Heart rate 2024-07-28 20:33:00 80 /min [facility] Body temperature 2024-07-28 20:33:00 37.11 [facility] Respiratory rate 2024-07-28 20:33:00 18 /min [facility] Body height 2024-07-28 20:33:00 154.9 cm [facility] Body weight 2024-07-28 20:33:00 52.164 kg [facility] BMI 2024-07-28 20:33:00 21.73 kg/m2 [facility] Oxygen saturation in Arterial blood by Pulse oximetry 2024-07-28 20:33:00 100 /min [facility] Systolic blood pressure 2024-06-03 03:33:00 123 mm[Hg] [facility] Diastolic blood pressure 2024-06-03 03:33:00 88 mm[Hg] [facility] Heart rate 2024-06-03 03:33:00 86 /min [facility] Respiratory rate 2024-06-03 03:33:00 16 /min [facility] Oxygen saturation in Arterial blood by Pulse oximetry 2024-06-03 03:33:00 100 /min [facility] Body temperature 2024-06-03 01:13:00 36.89 [facility] Body height 2024-06-03 01:13:00 154.9 cm [facility] Body weight 2024-06-03 01:13:00 45.36 kg [facility] BMI 2024-06-03 01:13:00 18.89 kg/m2 [facility] Systolic blood pressure 2023-05-23 19:00:00 103 mm[Hg] [facility] Diastolic blood pressure 2023-05-23 19:00:00 69 mm[Hg] [facility] Heart rate 2023-05-23 19:00:00 59 /min [facility] Body temperature 2023-05-23 19:00:00 36.94 [facility] Respiratory rate 2023-05-23 19:00:00 18 /min [facility] Body weight 2023-05-23 19:00:00 63.413 kg [facility] BMI 2023-05-23 19:00:00 26.41 kg/m2 [facility] Systolic blood pressure 2023-05-15 05:00:00 113 mm[Hg] [facility] Diastolic blood pressure 2023-05-15 05:00:00 76 mm[Hg] [facility] Heart rate 2023-05-15 05:00:00 67 /min [facility] Respiratory rate 2023-05-15 05:00:00 13 /min [facility] Oxygen saturation in Arterial blood by Pulse oximetry 2023-05-15 05:00:00 99 /min [facility] Body temperature 2023-05-15 04:30:00 36.94 [facility] Body height 2023-05-15 03:41:00 154.9 cm [facility] Body weight 2023-05-15 03:41:00 63.504 kg [facility] BMI 2023-05-15 03:41:00 26.45 kg/m2 [facility] Systolic blood pressure 2023-05-14 12:30:00 116 mm[Hg] [facility] Diastolic blood pressure 2023-05-14 12:30:00 60 mm[Hg] [facility] Heart rate 2023-05-14 12:30:00 68 /min [facility] Body temperature 2023-05-14 12:30:00 36.89 [facility] Respiratory rate 2023-05-14 12:30:00 18 /min [facility] Oxygen saturation in Arterial blood by Pulse oximetry 2023-05-14 09:21:00 99 /min [facility] Body height 2023-05-13 19:48:00 154.9 cm [facility] Body weight 2023-05-13 19:48:00 63.504 kg [facility] BMI 2023-05-13 19:48:00 26.45 kg/m2 [facility] Systolic blood pressure 2023-05-14 01:59:00 116 mm[Hg] [facility] Diastolic blood pressure 2023-05-14 01:59:00 66 mm[Hg] [facility] Heart rate 2023-05-14 01:59:00 65 /min [facility] Respiratory rate 2023-05-14 01:59:00 8 /min [facility] Oxygen saturation in Arterial blood by Pulse oximetry 2023-05-14 01:59:00 100 /min [facility] Systolic blood pressure 2023-05-14 01:59:00 116 mm[Hg] [facility] Diastolic blood pressure 2023-05-14 01:59:00 66 mm[Hg] [facility] Heart rate 2023-05-14 01:59:00 65 /min [facility] Respiratory rate 2023-05-14 01:59:00 8 /min [facility] Oxygen saturation in Arterial blood by Pulse oximetry 2023-05-14 01:59:00 100 /min [facility] Body temperature 2023-05-13 23:43:00 37 [facility] Body temperature 2023-05-13 23:43:00 37 [facility] Body height 2023-05-13 19:48:00 154.9 cm [facility] Body weight 2023-05-13 19:48:00 63.504 kg [facility] 2023-05-13 19:48:00 26.45 kg/m2 [facility] Body height 2023-05-13 19:48:00 154.9 cm [facility] Body weight 2023-05-13 19:48:00 63.504 kg [facility] BMI 2023-05-13 19:48:00 26.45 kg/m2 [facility] Systolic blood pressure 2023-05-11 00:10:00 110 mm[Hg] [facility] Diastolic blood pressure 2023-05-11 00:10:00 69 mm[Hg] [facility] Heart rate 2023-05-11 00:10:00 70 /min [facility] Body temperature 2023-05-11 00:10:00 37.17 [facility] Respiratory rate 2023-05-11 00:10:00 16 /min [facility] Oxygen saturation in Arterial blood by Pulse oximetry 2023-05-11 00:10:00 96 /min [facility] Body height 2023-05-10 21:04:00 154.9 cm [facility] Body weight 2023-05-10 21:04:00 63.504 kg [facility] BMI 2023-05-10 21:04:00 26.45 kg/m2 [facility] Systolic blood pressure 2023-05-10 20:31:00 107 mm[Hg] [facility] Diastolic blood pressure 2023-05-10 20:31:00 65 mm[Hg] [facility] Heart rate 2023-05-10 20:31:00 69 /min [facility] Body temperature 2023-05-10 20:31:00 36.78 [facility] Respiratory rate 2023-05-10 20:31:00 17 /min [facility] Body height 2023-05-10 20:31:00 154.9 cm [facility] Body weight 2023-05-10 20:31:00 63.594 kg [facility] BMI 2023-05-10 20:31:00 26.49 kg/m2 [facility] Systolic blood pressure 2023-03-15 17:53:00 104 mm[Hg] [facility] Diastolic blood pressure 2023-03-15 17:53:00 58 mm[Hg] [facility] Heart rate 2023-03-15 17:53:00 80 /min [facility] Body temperature 2023-03-15 17:53:00 36.72 [facility] Respiratory rate 2023-03-15 17:53:00 18 /min [facility] Body height 2023-03-15 17:53:00 154.9 cm [facility] Body weight 2023-03-15 17:53:00 59.421 kg [facility] BMI 2023-03-15 17:53:00 24.75 kg/m2 [facility] Oxygen saturation in Arterial blood by Pulse oximetry 2023-03-15 17:53:00 98 /min [facility] Systolic blood pressure 2023-03-04 23:23:00 112 mm[Hg] [facility] Diastolic blood pressure 2023-03-04 23:23:00 59 mm[Hg] [facility] Heart rate 2023-03-04 23:23:00 77 /min [facility] Body temperature 2023-03-04 23:23:00 36.94 [facility] Body height 2023-03-04 23:23:00 154.9 cm [facility] Body weight 2023-03-04 23:23:00 59.648 kg [facility] BMI 2023-03-04 23:23:00 24.85 kg/m2 [facility] Oxygen saturation in Arterial blood by Pulse oximetry 2023-03-04 23:23:00 95 /min [facility] Oxygen saturation in Arterial blood by Pulse oximetry 2023-03-01 16:55:00 98 /min [facility] Systolic blood pressure 2023-03-01 16:51:00 115 mm[Hg] [facility] Diastolic blood pressure 2023-03-01 16:51:00 69 mm[Hg] [facility] Heart rate 2023-03-01 16:51:00 55 /min [facility] Respiratory rate 2023-03-01 16:51:00 14 /min [facility] Body temperature 2023-03-01 15:40:00 36.11 [facility] Body height 2023-02-22 18:00:00 154.9 cm [facility] Body weight 2023-02-22 18:00:00 58.968 kg [facility] BMI 2023-02-22 18:00:00 24.56 kg/m2 [facility] Oxygen saturation in Arterial blood by Pulse oximetry 2023-03-01 16:55:00 98 /min [facility] Systolic blood pressure 2023-03-01 16:51:00 115 mm[Hg] [facility] Diastolic blood pressure 2023-03-01 16:51:00 69 mm[Hg] [facility] Heart rate 2023-03-01 16:51:00 55 /min [facility] Respiratory rate 2023-03-01 16:51:00 14 /min [facility] Body temperature 2023-03-01 15:40:00 36.11 [facility] Body height 2023-02-22 18:00:00 154.9 cm [facility] Body weight 2023-02-22 18:00:00 58.968 kg [facility] BMI 2023-02-22 18:00:00 24.56 kg/m2 [facility] Systolic blood pressure 2023-02-03 13:22:00 105 mm[Hg] [facility] Diastolic blood pressure 2023-02-03 13:22:00 65 mm[Hg] [facility] Heart rate 2023-02-03 13:22:00 76 /min [facility] Body height 2023-02-03 13:22:00 154.9 cm [facility] Body weight 2023-02-03 13:22:00 60.328 kg [facility] BMI 2023-02-03 13:22:00 25.13 kg/m2 [facility] Oxygen saturation in Arterial blood by Pulse oximetry 2023-02-03 13:22:00 99 /min [facility] Systolic blood pressure 2023-01-15 00:33:00 118 mm[Hg] [facility] Diastolic blood pressure 2023-01-15 00:33:00 74 mm[Hg] [facility] Heart rate 2023-01-15 00:33:00 66 /min [facility] Body temperature 2023-01-15 00:33:00 37 [facility] Respiratory rate 2023-01-15 00:33:00 16 /min [facility] Body height 2023-01-15 00:33:00 154.9 cm [facility] Body weight 2023-01-15 00:33:00 60.283 kg [facility] BMI 2023-01-15 00:33:00 25.11 kg/m2 [facility] Oxygen saturation in Arterial blood by Pulse oximetry 2023-01-15 00:33:00 98 /min [facility] Systolic blood pressure 2022-12-29 19:45:00 109 mm[Hg] [facility] Diastolic blood pressure 2022-12-29 19:45:00 70 mm[Hg] [facility] Heart rate 2022-12-29 19:45:00 68 /min [facility] Body temperature 2022-12-29 19:45:00 36.89 [facility] Respiratory rate 2022-12-29 19:45:00 18 /min [facility] Body height 2022-12-29 19:45:00 154.9 cm [facility] Body weight 2022-12-29 19:45:00 60.328 kg [facility] BMI 2022-12-29 19:45:00 25.13 kg/m2 [facility] Systolic blood pressure 2022-11-12 15:34:00 104 mm[Hg] [facility] Diastolic blood pressure 2022-11-12 15:34:00 67 mm[Hg] [facility] Heart rate 2022-11-12 15:34:00 62 /min [facility] 2022-11-12 15:34:00 37.11 [facility] Body height 2022-11-12 15:34:00 154.9 cm [facility] Body weight 2022-11-12 15:34:00 63.05 kg [facility] BMI 2022-11-12 15:34:00 26.26 kg/m2 [facility] Sy[facility] blood pressure 2022-09-17 17:01:00 107 mm[Hg] [facility] Diastolic blood pressure 2022-09-17 17:01:00 66 mm[Hg] [facility] Heart rate 2022-09-17 17:01:00 65 /min [facility] Respiratory rate 2022-09-17 17:01:00 18 /min [facility] Body height 2022-09-17 17:01:00 154.9 cm [facility] Body weight 2022-09-17 17:01:00 68.04 kg [facility] BMI 2022-09-17 17:01:00 28.34 kg/m2 [facility] Systolic blood pressure 2022-07-07 16:50:00 96 mm[Hg] [facility] Diastolic blood pressure 2022-07-07 16:50:00 63 mm[Hg] [facility] Heart rate 2022-07-07 16:50:00 64 /min [facility] Body temperature 2022-07-07 16:50:00 36.72 [facility] Respiratory rate 2022-07-07 16:50:00 18 /min [facility] Body height 2022-07-07 16:50:00 154.9 cm [facility] Body weight 2022-07-07 16:50:00 70.308 kg [facility] BMI 2022-07-07 16:50:00 29.29 kg/m2 [facility] Systolic blood pressure 2022-06-09 15:03:00 98 mm[Hg] [facility] Diastolic blood pressure 2022-06-09 15:03:00 65 mm[Hg] [facility] Heart rate 2022-06-09 15:03:00 79 /min [facility] Body temperature 2022-06-09 15:03:00 36.44 [facility] Respiratory rate 2022-06-09 15:03:00 18 /min [facility] Body height 2022-06-09 15:03:00 154.9 cm [facility] Body weight 2022-06-09 15:03:00 71.215 kg [facility] BMI 2022-06-09 15:03:00 29.66 kg/m2 [facility] Systolic blood pressure 2022-05-12 18:02:00 101 mm[Hg] [facility] Diastolic blood pressure 2022-05-12 18:02:00 67 mm[Hg] [facility] Heart rate 2022-05-12 18:02:00 53 /min [facility] Body temperature 2022-05-12 18:02:00 36.61 [facility] Respiratory rate 2022-05-12 18:02:00 16 /min [facility] Body height 2022-05-12 18:02:00 154.9 cm [facility] Body weight 2022-05-12 18:02:00 73.936 kg [facility] BMI 2022-05-12 18:02:00 30.80 kg/m2 [facility] Systolic blood pressure 2022-04-22 12:18:00 106 mm[Hg] [facility] Diastolic blood pressure 2022-04-22 12:18:00 55 mm[Hg] [facility] Heart rate 2022-04-22 12:18:00 53 /min [facility] Body temperature 2022-04-22 12:18:00 36.5 [facility] Respiratory rate 2022-04-22 12:18:00 16 /min [facility] Oxygen saturation in Arterial blood by Pulse oximetry 2022-04-22 09:25:00 99 /min [facility] Body height 2022-04-20 08:51:00 154.9 cm [facility] Body weight 2022-04-20 08:51:00 87.272 kg [facility] BMI 2022-04-20 08:51:00 36.35 kg/m2 [facility] Systolic blood pressure 2022-04-14 15:06:00 106 mm[Hg] [facility] Diastolic blood pressure 2022-04-14 15:06:00 70 mm[Hg] [facility] Heart rate 2022-04-14 15:06:00 86 /min [facility] Body temperature 2022-04-14 15:06:00 36.78 [facility] Respiratory rate 2022-04-14 15:06:00 18 /min [facility] Body height 2022-04-14 15:06:00 154.9 cm [facility] Body weight 2022-04-14 15:06:00 86.183 kg [facility] BMI 2022-04-14 15:06:00 35.90 kg/m2 [facility] Body weight 2022-04-08 15:56:00 84.369 kg [facility] BMI 2022-04-08 15:56:00 35.14 kg/m2 [facility] Systolic blood pressure 2022-04-08 15:56:00 106 mm[Hg] [facility] Diastolic blood pressure 2022-04-08 15:56:00 68 mm[Hg] [facility] Heart rate 2022-04-08 15:56:00 65 /min [facility] Body temperature 2022-04-08 15:56:00 36.78 [facility] Respiratory rate 2022-04-08 15:56:00 18 /min [facility] Body height 2022-04-08 15:56:00 154.9 cm [facility] Systolic blood pressure 2022-04-01 16:10:00 122 mm[Hg] [facility] Diastolic blood pressure 2022-04-01 16:10:00 71 mm[Hg] [facility] Heart rate 2022-04-01 16:10:00 78 /min [facility] Body temperature 2022-04-01 16:10:00 36.78 [facility] Respiratory rate 2022-04-01 16:10:00 18 /min [facility] Body height 2022-04-01 16:10:00 154.9 cm [facility] Body weight 2022-04-01 16:10:00 84.278 kg [facility] BMI 2022-04-01 16:10:00 35.11 kg/m2 [facility] Procedures Procedure Date / Time Performed Performing Clinician Source POCT URINALYSIS W/O SPECIFIC GRAVITY 2025-04-22 00:00:00 Carolynn Esparza [facility] SCANNED LAB RESULTS 2025-04-17 14:19:24 Doctor Melany renteria, [place] [facility] CBC WITH DIFF 2025-03-27 19:35:00 Carolynn Esparza [facility] SECOND AND THIRD TRIMESTER ULTRASOUND 2025-03-26 20:02:00 Carolynn Esparza [facility] POCT TEST 2025-03-22 15:15:00 Carolynn Esparza [facility] POCT URINALYSIS W/O SPECIFIC GRAVITY 2025-03-22 15:14:00 Carolynn Esparza [facility] FLU VACC ([id number]), 6+ MONTHS, IM, TIV (AFLURIA/FLUARIX/FLULAVAL/ FLUZONE) 2025-03-22 15:11:16 Carolynn Esparza [facility] RAPID STREP SCREEN FOR GROUP A 2024-06-03 02:57:00 Tristan Troncoso [facility] POCT TEST 2024-06-03 02:19:00 Shaun Troncoso [facility] URINALYSIS 2024-06-03 02:05:00 Tristan Troncoso [facility] ADC CLC OR LCC ONLY - WET PREP 2024-06-03 02:05:00 Tristan Troncoso [facility] POCT TEST 2023-05-23 19:07:00 Carolynn Esparza [facility] CT ABDOMEN PELVIS W CONTRAST 2023-05-15 04:14:11 Alyson Michel [facility] COMP. METABOLIC PANEL ([id number]) 2023-05-15 03:55:00 Alyson Michel [facility] CBC WITH DIFF 2023-05-15 03:55:00 Alyson Michel [facility] NOTICE OF PRIVACY PRACTICES 2023-05-15 03:39:09 Doctor Unassigned, [place] [facility] CONSENT/REFUSAL FOR DIAGNOSIS AND TREATMENT 2023-05-15 03:35:18 Doctor Unassigned, [place] [facility] CBC WITH DIFF 2023-05-14 10:11:00 Jackie Harosol [facility] CBC WITH DIFF 2023-05-14 10:11:00 Estrellita Kalina [facility] CBC WITH DIFF 2023-05-14 10:11:00 Jackie Harosol [facility] EMERGENCY SERVICES AGREEMENTS AND AUTHORIZATIONS 2023-05-14 05:01:00 Doctor Unassigned, [place] [facility] SURGICAL PATHOLOGY EXAM 2023-05-14 00:46:00 Kalina Pollack [facility] LAPAROSCOPIC SALPINGECTOMY 2023-05-13 23:47:00 Jackie Bergeronsol [facility] INTRAUTERINE DEVICE REMOVAL 2023-05-13 23:47:00 Jackie Harosol [facility] LAPAROSCOPIC SALPINGECTOMY 2023-05-13 23:47:00 [facility] 2023-05-13 23:47:00 Kalina Haro [facility] HB ABO GROUPING 2023-05-13 22:52:00 Alyson Michel [facility] HB ABO GROUPING 2023-05-13 22:52:00 Alyson Michel [facility] HB ABO GROUPING 2023-05-13 22:52:00 Alyson Michel [facility] COMP. METABOLIC PANEL ([id number]) 2023-05-13 20:27:00 Alyson Michel [facility] TOTAL BETA HCG ASSAY 2023-05-13 20:27:00 Aidan Michel [facility] CBC WITH DIFF 2023-05-13 20:27:00 Alyson Michel [facility] COMP. METABOLIC PANEL ([id number]) 2023-05-13 20:27:00 Alyson Michel [facility] TOTAL BETA HCG ASSAY 2023-05-13 20:27:00 Aidan Michel [facility] CBC WITH DIFF 2023-05-13 20:27:00 Alyson Michel [facility] COMP. METABOLIC PANEL ([id number]) 2023-05-13 20:27:00 Alyson Michel [facility] TOTAL BETA HCG ASSAY 2023-05-13 20:27:00 Aidan Michel [facility] CBC WITH DIFF 2023-05-13 20:27:00 Alyson Michel [facility] CONSENT/REFUSAL FOR DIAGNOSIS AND TREATMENT 2023-05-13 19:34:56 Doctor Unassigned, [place] [facility] CONSENT/REFUSAL FOR DIAGNOSIS AND TREATMENT 2023-05-13 19:34:56 Doctor Unassigned, [place] [facility] CONSENT/REFUSAL FOR DIAGNOSIS AND TREATMENT 2023-05-13 19:34:56 Doctor Unassigned, [place] [facility] FIRST TRIMESTER LESS THAN 14 WEEKS WITH TRANSVAGINAL 2023-05-13 18:58:29 [facility] HOSPITAL ADMISSION 2023-05-13 05:01:00 Doctor Un assigned, [place] [facility] FIRST TRIMESTER LESS THAN 14 WEEKS WITH TRANSVAGINAL 2023-05-10 22:00:00 [facility] US OB TRANSVAGINAL 2023-05-10 21:37:34 Carolynn Esparza U [facility] COMP. METABOLIC PANEL ([id number]) 2023-05-10 21:24:00 Kenny Finley [facility] TOTAL BETA HCG ASSAY 2023-05-10 21:24:00 Kulwinder Finley [facility] CBC WITH DIFF 2023-05-10 21:24:00 Kenny Finley [facility] HB ABO GROUPING 2023-05-10 21:24:00 Kenny Finley [facility] CONSENT/REFUSAL FOR DIAGNOSIS AND TREATMENT 2023-05-10 20:57:33 Doctor Unassigned, [place] [facility] POCT TEST 2023-05-10 00:00:00 Carolynn Esparza [facility] POCT URINALYSIS W/O SPECIFIC GRAVITY 2023-05-10 00:00:00 Carolynn Esparza [facility] LAPAROSCOPIC CHOLECYSTECTOMY 2023-03-01 13:45:00 Mily Delgadillo [facility] POCT TEST 2023-03-01 13:30:00 Eduard Delgadillo [facility] POCT TEST 2023-03-01 13:30:00 Eduard Delgadillo [facility] DAY SURGERY - ADC 2023-03-01 05:01:00 Doctor Enedina ssigned, [place] [facility] DISCLOSURE AND CONSENT, MEDICAL AND SURGICAL PROCEDURES 2023-02-03 05:01:00 Doctor Unassigned, [place] [facility] DISCLOSURE AND CONSENT, MEDICAL AND SURGICAL PROCEDURES 2023-02-03 05:01:00 Doctor Unassigned, [place] [facility] US ABDOMEN LIMITED 2023-01-25 20:54:06 Marley Valencia [facility] HSV 1&2, VZV NAAT 2023-01-15 00:53:00 Brianne Britton [facility] CONSENT/REFUSAL FOR DIAGNOSIS AND TREATMENT 2022-11-12 15:24:48 Doctor Unassigned, [place] [facility] POCT TEST 2022-11-12 00:00:00 Marley Valnecia [facility] PATIENT FINANCIAL POLICY 2022-09-17 16:34:46 Doctor Unassigned, [place] [facility] POCT TEST 2022-06-09 15:12:00 Carolynn Esparza [facility] ULTRASOUND 2022-06-09 06:01:00 Doc tor Unassigned, [place] [facility] CBC WITH DIFF 2022-04-21 09:07:00 [facility] 2022-04-20 14:22:48 Karen Yu [facility] HB ABO GROUPING 2022-04-20 09:20:00 Carolynn Esparza [facility] RHO (D) IMMUNE GLOBULIN 2022-04-20 09:20:00 Carolynn Esparza [facility] CONSENT/REFUSAL FOR DIAGNOSIS AND TREATMENT 2022-04-19 13:13:18 Doctor Unassigned, [place] [facility] ASSIGNMENT OF BENEFITS 2022-04-19 13:12:53 Docto r Unassigned, [place] [facility] POCT URINALYSIS W/O SPECIFIC GRAVITY 2022-04-14 00:00:00 Carolynn Esparza [facility] POCT URINALYSIS W/O SPECIFIC GRAVITY 2022-04-08 00:00:00 Brianne Britton [facility] >14 WEEKS US LIMITED 2022-04-01 17:17:35 Carolynn Esparza [facility] DSU PRE-OP 2022-04-01 05:01:00 Doctor Unass igned, [place] [facility] POCT URINALYSIS W/O SPECIFIC GRAVITY 2022-04-01 00:00:00 Carolynn Esparza [facility] AUTHORIZATION TO RELEASE PHI TO [facility] 2021-10-14 05:01:00 Doctor Unassigned, [place] [facility] Encounters Start Date/Time End Date/Time Encounter Type Admission Type Attending [facility] Care Facility Care Department Encounter ID Source 2022-01-29 21:39:50 Outpatient X [facility] TEENA [id number] [facility] 2021-05-18 22:00:59 Emergency [facility] [id number] [facility] 2021-05-16 09:26:29 Emergency [facility] [id number] [facility] 2025-04-23 15:30:00 2025-04-23 15:30:00 Outpatient R CYNTHIA SANCHEZ Kinza CHAYO [facility] [id number] [facility] 2025-04-23 13:00:00 2025-04-23 13:00:00 Accounts Manager Visit CAROLYNN ALONZO [facility] BUILDING 1.2840.114 350.1.13.10 4.2.7.2.686 [id number] 353 [id number] [facility] 2025-04-22 10:00:00 2025-04-22 11:01:55 Routine Visit Carolynn Alonzo [facility] BUILDING 1.2840.114 350.1.13.10 4.2.7.2.686 [id number] 134 [id number] [facility] 2025-04-17 00:00:00 2025-04-18 02:04:33 Orders Only Doctor Unassigned, [place] Doctor Unassigned, [place] [facility] 1.2.114 350.1.13.10 4.2.7.2.686 [id number] [facility] 2025-04-08 00:00:00 2025-04-08 14:43:59 Telephone Carolynn Esparza [facility] BUILDING 1.284.114 350.1.13.10 4.2.7.2.686 [id number] 134 [id number] [facility] 2025-03-27 14:45:00 2025-03-27 14:41:14 Accounts Manager Visit CAROLYNN ALONZO [facility] BU[facility] 1.2.840.114 350.1.13.10 4.2.7.2.686 [id number] [facility] 2025-03-26 13:00:00 2025-03-27 08:48:32 Accounts Manager Visit Angella BERONICA SALGADO [facility] PROFESSIO NAL BUILDING 1.2.840.114 350.1.13.10 4.2.7.2.686 [id number] 134 [id number] [facility] 2025-03-26 00:00:00 2025-03-26 15:38:07 Telephone IsaiasCarolynn [facility] BUILDING 1.2.840.114 350.1.13.10 4.2.7.2.686 [id number] 134 [id number] [facility] 2025-03-26 15:00:00 2025-03-26 15:00:00 Outpatient R CAROLYNN ESPARZA [facility] [id number] [facility] 2025-03-26 00:00:00 2025-03-26 00:19:24 Case Management Carolynn Esparza [facility] BUILDING 1.2.840.114 350.1.13.10 4.2.7.2.686 [id number] 134 [id number] [facility] 2025-03-22 10:00:00 2025-03-22 10:38:42 Initial Visit R CAROLYNN ESPARZA [facility] 1.2.840.114 350.1.13.10 4.2.7.2.686 [id number] 134 [id number] [facility] 2025-03-18 00:00:00 2025-03-19 08:28:12 Telephone Carolynn Esparza [facility] 1.2.840.114 350.1.13.10 4.2.7.2.686 [id number] 134 [id number] [facility] 2021-10-14 00:00:00 2024-09-01 02:49:25 Orders Only Orin Sheehan Evelyn [facility] 1.2.840.114 350.1.13.10 4.2.7.2.686 [id number] 134 [id number] [facility] 2024-07-28 14:37:00 2024-07-28 15:20:00 Emergency X [facility]ON [facility] [id number] [facility] 2024-07-28 14:37:00 2024-07-28 15:20:00 Emergency X ALYSON MICHEL [facility] ERT [id number] [facility] 2024-05-10 00:00:00 2024-06-16 18:27:10 Patient Secure Msg Doctor Unassigned, [place] Doctor Unassigned, [place] [facility] 1.2.840.114 350.1.13.10 4.2.7.2.686 [id number] 134 [id number] [facility] 2024-06-02 19:20:00 2024-06-02 22:15:00 Emergency X TRISTAN TRONCOSO PHILLIP [facility] ERT [id number] [facility] 2024-06-02 19:20:00 2024-06-02 22:15:00 Emergency X TRISTAN TRONCOSO PHILLIP [facility] ERT [id number] [facility] 2024-05-02 00:00:00 2024-06-02 18:19:25 Patient Secure Msg Doctor Unassigned, [place] Doctor Unassigned, [place] [facility] 1.2.840.114 350.1.13.10 4.2.7.2.686 [id number] 134 [id number] [facility] 2024-04-02 11:30:00 2024-04-02 11:30:00 Outpatient DONALD ALEXANDER [facility] [id number] [facility] 2023-12-15 13:30:00 2023-12-15 13:30:00 Outpatient R ISAIASMAMADOUEN [facility] [id number] [facility] 2023-10-28 13:00:00 2023-10-28 13:00:00 Outpatient R DONALD MCGRATH [facility] [id number] [facility] 2023-09-23 10:00:00 2023-09-23 10:00:00 Outpatient R CONNIE PRADOGEOVANI NEMO PRADO [facility] [id number] [facility] 2023-09-08 10:00:00 2023-09-08 10:00:00 Outpatient R ESPARZAMAMADOUEN [facility] [id number] [facility] 2023-09-05 00:00:00 2023-09-05 00:00:00 Patient Secure M[facility] 1.2.840.114 350.1.13.10 4.2.7.2.686 [id number] 134 [id number] [facility] 2023-06-11 00:00:00 2023-06-11 00:00:00 Patient Secure Msg [facility] 1.2.840.114 350.1.13.10 4.2.7.2.686 [id number] 134 [id number] [facility] 2023-05-23 13:30:00 2023-05-23 13:45:00 Accounts Manager Visit 2, Adc Lab Carolynn Esparza [facility] BUILDING 1.2.840.114 350.1.13.10 4.2.7.2.686 [id number] [facility] 2023-05-23 13:00:00 2023-05-23 13:16:39 Outpatient R ISAIAS CAROLYNN [facility] [id number] [facility] 2023-05-23 13:00:00 2023-05-23 13:16:39 Routine Visit Carolynn Esparza N[place] [facility] PROFESSIO [facility] BUILD[facility] 1.2.840.114 350.1.13.10 4.2.7.2.686 [id number] 134 [id number] [facility] 2023-05-14 22:43:00 2023-05-15 00:39:00 Emergency X ALYSON MICHEL [facility] ERT [id number] [facility] 2023-05-14 22:43:00 2023-05-15 00:39:00 Emergency Alyson Michel Karan [facility] 1.2.840.114 350.1.13.10 4.2.7.2.686 [id number] [facility] 2023-05-13 14:52:00 2023-05-14 09:30:00 Outpatient X JOSE-RACIEL S, KALINA JOSE-RACIEL S, [facility] TEENA [id number] [facility] 2023-05-13 14:52:00 2023-05-14 09:30:00 Emergency Alyson Michel Karan nina [facility] 1.2.840.114 350.1.13.10 4.2.7.2.686 [id number] [facility] 2023-05-13 19:00:00 2023-05-13 20:59:00 Surgery Jose-Raciel s Kalina [facility] 1.2.840.114 350.1.13.10 4.2.7.2.686 [id number] [facility] 2023-05-13 13:19:24 2023-05-13 14:51:00 Outpatient R CAROLYNN ESPARZA [facility] [id number] [facility] 2023-05-13 13:00:00 2023-05-13 14:51:00 Hospital Encounter Esparza, Carolynn [facility] 1.2.840.114 350.1.13.10 4.2.7.2.686 [id number] [facility] 2023-05-12 13:15:00 2023-05-12 13:30:00 Accounts Manager Visit 2, Adc Lab Carolynn Esparza [facility] BUILDING 1.2.840.114 350.1.13.10 4.2.7.2.686 [id number] [facility] 2023-05-12 13:15:00 2023-05-12 13:26:14 Outpatient R CAROLYNN ESPARZA [facility] [id number] [facility] 2023-05-12 00:00:00 2023-05-12 00:00:00 Telephone Carolynn Esparza [facility] 1.2840.114 350.1.13.10 4.2.7.2.686 [id number] 134 [id number] [facility] 2023-05-12 00:00:00 2023-05-12 00:00:00 Case Management Carolynn Esparza [facility] 1.2840.114 350.1.13.10 4.2.7.2.686 [id number] 134 [id number] [facility] 2023-05-12 00:00:00 2023-05-12 00:00:00 Telephone Carolynn Esparza [facility] 1.2.840.114 350.1.13.10 4.2.7.2.686 [id number] 134 [id number] [facility] 2023-05-12 00:00:00 2023-05-12 00:00:00 Patient Secure Msg Doctor Unassigned, [place] [facility] 1.2.840.114 350.1.13.10 4.2.7.2.686 [id number] [facility] 2023-05-10 16:05:00 2023-05-10 19:18:00 Emergency X KENNY FINLEY [facility] ERT [id number] [facility] 2023-05-10 16:05:00 2023-05-10 19:18:00 Emergency Kenny Finley [facility] 1..840.114 350.1.13.10 4.2.7.2.686 [id number] [facility] 2023-05-10 15:30:00 2023-05-10 16:25:07 Outpatient R CAROLYNN ESPARZA [facility] [id number] [facility] 2023-05-10 15:30:00 2023-05-10 16:25:07 Office Visit Carolynn Esparza [facility] 1..840.114 350.1.13.10 4.2.7.2.686 [id number] 134 [id number] [facility] 2023-03-28 08:30:00 2023-03-28 08:30:00 Outpatient R MILY DELGADILLO [facility] [id number] [facility] 2023-03-25 00:00:00 2023-03-25 00:00:00 Patient Secure Msg Doctor Unassigned, [place] [facility] ..840.114 350.1.13.10 4.2.7.2.686 [id number] 134 [id number] [facility] 2023-03-15 13:30:00 2023-03-15 13:30:00 Office Visit Razia Pitts La[place] [facility] BUILDING 1..840.114 350.1.13.10 4.2.7.2.686 [id number] [facility] 2023-03-15 13:30:00 2023-03-15 13:29:16 Outpatient R MILY DELGADILLO [facility] [id number] [facility] 2023-03-13 00:00:00 2023-03-13 00:00:00 Patient Secure Msg Britton [facility] PROFESSIO NAL BUILDING 1.2.840.114 350.1.13.10 4.2.7.2.686 [id number] 134 [id number] [facility] 2023-03-04 18:00:00 2023-03-04 18:20:00 Urgent Care Tobi [facility]K RESEN[facility] BUILDING 1.2.840.114 350.1.13.10 4.2.7.2.686 [id number] [facility] 2023-03-04 18:00:00 2023-03-04 18:00:00 Outpatient R TOBI [facility] [id number] [facility] 2023-03-04 00:00:00 2023-03-04 00:00:00 Patient Secure Msg Britton [facility] 1..840.114 350.1.13.10 4.2.7.2.686 [id number] 134 [id number] [facility] 2023-03-01 09:20:00 2023-03-01 12:29:00 Surgery Mily Delgadillo [facility] 1.2.840.114 350.1.13.10 4.2.7.2.686 [id number] [facility] 2023-03-01 08:24:00 2023-03-01 11:55:00 Outpatient R DAVE MILY [facility] KATERINA [id number] [facility] 2023-03-01 08:24:00 2023-03-01 11:55:00 Hospital Encounter Mily Delgadillo [facility] 1.2.840.114 350.1.13.10 4.2.7.2.686 [id number] [facility] 2023-02-21 00:00:00 2023-02-21 00:00:00 Patient Secure g Mily Delgadillo [facility] BUILDING 1.2.840.114 350.1.13.10 4.2.7.2.686 [id number] [facility] 2023-02-18 00:00:00 2023-02-18 00:00:00 Patient Secure Msg Tobi [facility] NAL BUILDING 1.2.840.114 350.1.13.10 4.2.7.2.686 [id number] 134 [id number] [facility] 2023-02-17 00:00:00 2023-02-17 00:00:00 Patient Secure Msg Tobi [facility] NAL BUILDING 1.2.840.114 350.1.13.10 4.2.7.2.686 [id number] 134 [id number] [facility] 2023-02-03 08:30:00 2023-02-03 10:56:39 Outpatient R MILY DELGADILLO [facility] [id number] [facility] 2023-02-03 08:30:00 2023-02-03 10:56:39 Office Visit Mily Delgadillo [facility] BUILDING 1.2.840.114 350.1.13.10 4.2.7.2.686 [id number] [facility] 2023-01-29 00:00:00 2023-01-29 00:00:00 Telephone [facility] 1.2.840.114 350.1.13.10 4.2.7.2.686 [id number] [facility] 2023-01-26 00:00:00 2023-01-26 00:00:00 Patient Secure Msg Brianne Britton [facility] BUILDING 1.840.114 350.1.13.10 4.2.7.2.686 [id number] 134 [id number] [facility] 2023-01-26 00:00:00 2023-01-26 00:00:00 Telephone Marley [facility] BU[facility] 1.84.114 350.1.13.10 4.2.7.2.686 [id number] [facility] 2023-01-25 15:19:29 2023-01-25 23:59:00 Outpatient R SANDRA VALENCIALIE [facility] [id number] [facility] 2023-01-25 15:19:29 2023-01-25 23:59:00 Hospital Encounter Marley Valencia [facility] 1.840.114 350.1.13.10 4.2.7.2.686 [id number] [facility] 2023-01-15 00:00:00 2023-01-15 00:00:00 Patient Secure Msg Brianne Britton [facility] 1..840.114 350.1.13.10 4.2.7.2.686 [id number] [facility] 2023-01-14 19:20:00 2023-01-14 20:53:05 Outpatient R BRIANNE BRITTON [facility] [id number] [facility] 2023-01-14 19:20:00 2023-01-14 20:53:05 Urgent Care Brianne Britton Unknown, Attending [facility] 1..840.114 350.1.13.10 4.2.7.2.686 [id number] [facility] 2023-01-12 00:00:00 2023-01-12 00:00:00 Patient Secure M[facility] 1.2.840.114 350.1.13.10 4.2.7.2.686 [id number] 134 [id number] [facility] 2023-01-03 00:00:00 2023-01-03 00:00:00 Refill Marley Valencia [facility] YULIANA?[facility] MEDICAL OFFICE BUILDING 1.2.840.114 350.1.13.10 4.2.7.2.686 [id number] [facility] 2023-01-02 00:00:00 2023-01-02 00:00:00 Patient Secure Msg Marley Valencia [facility] YULIANA?[facility] MEDICAL OFFICE BUILDING 1.2.840.114 350.1.13.10 4.2.7.2.686 [id number] [facility] 2022-12-30 00:00:00 2022-12-30 00:00:00 Case Management Tobi [facility] YULIANA[facility] BUILDING 1.2.840.114 350.1.13.10 4.2.7.2.686 [id number] [facility] 2022-12-29 15:15:00 2022-12-29 15:20:41 Outpatient R ESTUARDOBRIANNE FITZGERALD [facility] [id number] [facility] 2022-12-29 15:15:00 2022-12-29 15:20:41 Office Visit Brianne Britton [facility] BUILDING 1.2.840.114 350.1.13.10 4.2.7.2.686 [id number] [facility] 2022-12-10 00:00:00 2022-12-10 00:00:00 Outpatient R MARLEY VALENCIA [facility] [id number] [facility] 2022-11-24 00:00:00 2022-11-24 00:00:00 Telephone Marley Valencia [facility]?JACEK [facility] BUILDING 1.2.840.114 350.1.13.10 4.2.7.2.686 [id number] [facility] 2022-11-12 10:30:00 2022-11-12 11:14:36 Outpatient R MARLEY VALENCIA [facility] [id number] [facility] 2022-11-12 10:30:00 2022-11-12 11:14:36 Office Visit Marley Valencia [facility] BUILDING 1.2.840.114 350.1.13.10 4.2.7.2.686 [id number] [facility] 2022-11-12 00:00:00 2022-11-12 00:00:00 Orders Only Doctor Unassigned, [place] [facility] 1.2.840.114 350.1.13.10 4.2.7.2.686 [id number] [facility] 2022-11-04 09:30:00 2022-11-04 09:45:00 Accounts Manager Visit 2, [facility] Nemo Prado [facility] BUILDING 1.2.840.114 350.1.13.10 4.2.7.2.686 [id number] [facility] 2022-11-04 09:30:00 2022-11-04 09:30:00 Outpatient R NEMO PRADO CHERYAL [facility] [id number] [facility] 2022-11-02 10:30:00 2022-11-02 10:30:00 Outpatient R [facility] [id number] [facility] 2022-10-14 11:00:00 2022-10-14 11:00:00 Outpatient R [facility] [id number] [facility] 2022-09-20 09:15:00 2022-09-20 09:15:00 Outpatient R NEMO PRADO CHERYAL [facility] [id number] [facility] 2022-09-17 10:30:00 2022-09-17 11:21:57 Outpatient R MARKNEMO BHARDWAJAURELIANONEMO DELUCA [facility] [id number] [facility] 2022-09-17 10:30:00 2022-09-17 11:21:57 Office Visit [address]Nemo deluca [facility] 1.840.114 350.1.13.10 4.2.7.2.686 [id number] [facility] 2022-09-17 00:00:00 2022-09-17 00:00:00 Orders Only Doctor Unassigned, [place] [facility] 1.2840.114 350.1.13.10 4.2.7.2.686 [id number] [facility] 2022-09-10 00:00:00 2022-09-10 00:00:00 Pre Visit Outreach Nell Chen 1.840.114 350.1.13.10 4.2.7.2.686 [id number] [facility] 2022-07-15 10:30:00 2022-07-15 10:30:00 Outpatient R BRIANNE BRITTON [facility] [id number] [facility] 2022-07-07 10:45:00 2022-07-07 11:19:46 Outpatient R CAROLYNN ESPARZA [facility] [id number] [facility] 2022-07-07 10:45:00 2022-07-07 11:19:46 Office Visit Carolynn Esparza [facility] 1.2.840.114 350.1.13.10 4.2.7.2.686 [id number] 134 [id number] [facility] 2022-06-09 09:00:00 2022-06-09 10:13:16 Outpatient R CARLOYNN ESPARZA [facility] [id number] [facility] 2022-06-09 09:00:00 2022-06-09 10:13:16 Office Visit Carolynn Esparza [facility] 1.2.840.114 350.1.13.10 4.2.7.2.686 [id number] 134 [id number] [facility] 2022-06-09 00:00:00 2022-06-09 00:00:00 Orders Only Doctor Unassigned, [place] [facility] 1.2.840.114 350.1.13.10 4.2.7.2.686 [id number] [facility] 2022-05-12 13:00:00 2022-05-12 13:20:00 Outpatient R CAROLYNN ESPARZA [facility] [id number] [facility] 2022-05-12 13:00:00 2022-05-12 13:20:00 Routine Visit Carolynn Esparza [facility] 1.2.840.114 350.1.13.10 4.2.7.2.686 [id number] 134 [id number] [facility] 2022-04-20 03:41:00 2022-04-22 09:40:00 Hospital Encounter Carolynn Esparza [facility] 1.2.840.114 350.1.13.10 4.2.7.2.686 [id number] [facility] 2022-04-20 08:56:00 2022-04-20 18:22:00 Anesthesia Event Livan Yu Jeffrey S [facility] 1.2840.114 350.1.13.10 4.2.7.2.686 [id number] 083 [id number] [facility] 2022-04-20 08:47:11 2022-04-20 08:47:11 Anesthesia Event Livan Yu [facility] 1.2.840.114 350.1.13.10 4.2.7.2.686 [id number] [id number] [facility] 2022-04-19 08:30:00 2022-04-19 08:45:00 Accounts Manager Visit Pob, Adc Lab Main Caroylnn Esparza [facility] BUILDING 1.2840.114 350.1.13.10 4.2.7.2.686 [id number] 353 [id number] [facility] 2022-04-19 08:00:00 2022-04-19 08:15:00 Laboratory Only Only, Adc Test Carolynn Esparza [facility] 1.2840.114 350.1.13.10 4.2.7.2.686 [id number] [facility] 2022-04-19 08:00:00 2022-04-19 08:00:00 Outpatient R CAROLYNN ESPARZA [facility] [id number] [facility] 2022-04-19 08:00:00 2022-04-19 08:00:00 Outpatient R CAROLYNN ESPARZA [facility] [id number] [facility] 2022-04-14 10:00:00 2022-04-14 10:15:00 Routine Visit Carolynn Esparza [facility] BUILDING 1.2840.114 350.1.13.10 4.2.7.2.686 [id number] 134 [id number] [facility] 2022-04-14 10:00:00 2022-04-14 10:00:00 Outpatient R CAROLYNN ESPARZA [facility] [id number] [facility] 2022-04-09 10:00:00 2022-04-09 10:15:00 Accounts Manager Visit 2, [facility] 1.2.840.114 350.1.13.10 4.2.7.2.686 [id number] 353 [id number] [facility] 2022-04-09 10:00:00 2022-04-09 10:00:00 Outpatient R CAROLYNN ESPARZA [facility] [id number] [facility] 2022-04-08 10:30:00 2022-04-08 11:20:01 [facility] [id number] [facility] 2022-04-08 10:30:00 2022-04-08 11:20:01 Routine Visit Brianne Britton [facility] BUILDING 1.2.840.114 350.1.13.10 4.2.7.2.686 [id number] 134 [id number] [facility] 2022-04-08 11:15:00 2022-04-08 11:15:00 Outpatient R [facility] [id number] [facility] 2022-04-01 11:00:00 2022-04-01 11:54:28 Outpatient R CAROLYNN ESPARZA [facility] [id number] [facility] 2022-04-01 11:00:00 2022-04-01 11:54:28 Routine Visit Carolynn Esparza [facility] 1.2.840.114 350.1.13.10 4.2.7.2.686 [id number] 134 [id number] [facility] 2022-04-01 11:00:00 2022-04-01 11:54:28 [facility] [id number] [facility] 2022-04-01 00:00:00 2022-04-01 00:00:00 Orders Only Doctor Unassigned, [place] [facility] 1.2.114 350.1.13.10 4.2.7.2.686 [id number] [id number] [facility] 2022-03-25 12:00:00 2022-03-25 12:52:58 Outpatient R GIDEON ROME [facility] [id number] [facility] 2022-03-25 12:00:00 2022-03-25 12:52:58 Urgent Care Gideon Rome Shahla, [facility] 1.84.114 350.1.13.10 4.2.7.2.686 [id number] [facility] 2022-03-25 11:00:00 2022-03-25 11:32:10 Routine Visit Brianne Britton [facility] BUILDING 1..114 350.1.13.10 4.2.7.2.686 [id number] 134 [id number] [facility] 2022-03-11 11:15:00 2022-03-11 12:07:16 Routine Visit Mamadou Esparzaen Naga [facility] BUILDING 1.84114 350.1.13.10 4.2.7.2.686 [id number] 134 [id number] [facility] 2022-03-11 11:15:00 2022-03-11 12:07:16 Outpatient R ISAIAS CAROLYNN [facility] [id number] [facility] 2022-03-09 13:30:00 2022-03-09 14:15:00 Accounts Manager Visit 2, [facility] 1.114 350.1.13.10 4.2.7.2.686 [id number] [facility] 2022-03-09 13:30:00 2022-03-09 13:30:00 Outpatient P LESLY SHIPMAN [facility] [id number] [facility] 2022-03-01 08:45:00 2022-03-01 08:45:00 Outpatient P [facility] [id number] [facility] 2022-02-24 00:00:00 2022-02-24 00:00:00 Telephone Carolynn Esparza [facility] 1..840.114 350.1.13.10 4.2.7.2.686 [id number] 134 [id number] [facility] 2022-02-23 16:15:00 2022-02-23 16:46:49 Outpatient R TOBI BRIANNE [facility] [id number] [facility] 2022-02-23 16:15:00 2022-02-23 16:46:49 Routine Visit Tobi [facility] 1..840.114 350.1.13.10 4.2.7.2.686 [id number] 134 [id number] [facility] 2022-02-23 00:00:00 2022-02-23 00:00:00 Orders Only Doctor Unassigned, [place] [facility] 1.840.114 350.1.13.10 4.2.7.2.686 [id number] [id number] [facility] 2022-02-16 16:00:00 2022-02-16 16:00:00 Outpatient R TOBI BRIANNE [facility] [id number] [facility] 2022-02-08 00:00:00 2022-02-08 00:00:00 Telephone Mikkishannon [facility] BUILDING 1.2.840.114 350.1.13.10 4.2.7.2.686 [id number] 134 [id number] [facility] 2022-02-05 08:45:00 2022-02-05 09:00:00 Accounts Manager Visit 2, Adc Lab Brianne Britton [facility] 1.84.114 350.1.13.10 4.2.7.2.686 [id number] 353 [id number] [facility] 2022-02-05 08:45:00 2022-02-05 08:45:00 [facility] [id number] [facility] 2022-02-02 14:00:00 2022-02-02 14:32:25 Outpatient R ESPARZACAROLYNN [facility] [id number] [facility] 2022-02-02 14:00:00 2022-02-02 14:32:25 Routine Visit Esparza Carolynn [facility] 1.840.114 350.1.13.10 4.2.7.2.686 [id number] 134 [id number] [facility] 2022-02-02 09:30:00 2022-02-02 09:30:00 Outpatient R ISAIAS CAROLYNN [facility] [id number] [facility] 2022-01-29 12:58:00 2022-01-29 21:22:00 Outpatient X CAROLYNN ESPARZA [facility] [id number] [facility] 2022-01-29 12:58:00 2022-01-29 21:22:00 Emergency Fish, Cassy Carolynn Esparza [facility] 1.84.114 350.1.13.10 4.2.7.2.686 [id number] [facility] 2022-01-21 00:00:00 2022-01-21 00:00:00 Telephone Brianne Britton [facility] 1..840.114 350.1.13.10 4.2.7.2.686 [id number] 134 [id number] [facility] 2022-01-07 00:00:00 2022-01-07 00:00:00 Case Management Brianne Britton [facility] 1.2.840.114 350.1.13.10 4.2.7.2.686 [id number] 134 [id number] [facility] 2022-01-05 11:00:00 2022-01-05 11:37:38 Routine Visit Brianne Britton [facility] 1.2.840.114 350.1.13.10 4.2.7.2.686 [id number] 134 [id number] [facility] 2022-01-05 11:00:00 2022-01-05 11:37:38 Outpatient R [facility] [id number] [facility] 2022-01-05 11:00:00 2022-01-05 11:00:00 Outpatient R [facility] [id number] [facility] 2021-12-29 00:00:00 2021-12-29 00:00:00 Telephone Carolynn Esparza [facility] 1.2.840.114 350.1.13.10 4.2.7.2.686 [id number] 134 [id number] [facility] 2021-12-23 10:30:00 2021-12-23 11:30:00 Accounts Manager Visit Ultrasound, Salvatore-Gio Rich [facility] 1..840.114 350.1.13.10 4.2.7.2.686 [id number] [facility] 2021-12-23 10:30:00 2021-12-23 10:30:00 Outpatient GIO JENKINS [facility] [id number] [facility] 2021-12-08 13:00:00 2021-12-08 13:32:10 Outpatient R CAROLYNN ESPARZA [facility] [id number] [facility] 2021-12-08 13:00:00 2021-12-08 13:32:10 [facility] 1.2.840.114 350.1.13.10 4.2.7.2.686 [id number] 134 [id number] [facility] 2021-12-08 13:00:00 2021-12-08 13:00:00 Outpatient R CAROLYNN ESPARZA [facility] [id number] [facility] 2021-11-10 13:00:00 2021-11-10 13:15:00 Accounts Manager Visit 2, Adc Lab Brianne Britton [facility] 1.2.840.114 350.1.13.10 4.2.7.2.686 [id number] 353 [id number] [facility] 2021-11-10 13:00:00 2021-11-10 13:00:00 Outpatient R TOBIBRIANNE [facility] [id number] [facility] 2021-11-10 11:15:00 2021-11-10 11:34:32 Routine Visit EstuardoBrianne fitzgerald [facility] 1.2.840.114 350.1.13.10 4.2.7.2.686 [id number] 134 [id number] [facility] 2021-11-10 11:15:00 2021-11-10 11:34:32 Outpatient R TOBI BRIANNE [facility] [id number] [facility] 2021-11-10 11:15:00 2021-11-10 11:15:00 [facility] [id number] [facility] 2021-11-04 00:00:00 2021-11-04 00:00:00 Orders Only Doctor Unassigned, [place] [facility] 1.2.840.114 350.1.13.10 4.2.7.2.686 [id number] [id number] [facility] 2021-10-22 00:00:00 2021-10-22 00:00:00 Telephone Carolynn Esaprza [facility] BUILDING 1.2.840.114 350.1.13.10 4.2.7.2.686 [id number] 134 [id number] [facility] 2021-10-20 00:00:00 2021-10-20 00:00:00 Telephone Carolynn Esparza [facility] BUILDING 1.2.840.114 350.1.13.10 4.2.7.2.686 [id number] 134 [id number] [facility] 2021-10-16 00:00:00 2021-10-16 00:00:00 Telephone Carolynn Esparza [facility] BUILDING 1.2.840.114 350.1.13.10 4.2.7.2.686 [id number] 134 [id number] [facility] 2021-10-16 00:00:00 2021-10-16 00:00:00 Telephone Carolynn Esparza [facility] BUILDING 1.2.840.114 350.1.13.10 4.2.7.2.686 [id number] 134 [id number] [facility] 2021-10-15 09:45:00 2021-10-15 10:00:00 Accounts Manager Visit 2, Adc Lab Carolynn Esparza [facility] BUILDING 1.2.840.114 350.1.13.10 4.2.7.2.686 [id number] [facility] 2021-10-15 09:45:00 2021-10-15 09:45:00 Outpatient R [facility] [id number] [facility] 2021-10-15 09:45:00 2021-10-15 09:45:00 Outpatient CAROLYNN ALONZO [facility] [id number] [facility] 2021-10-15 00:00:00 2021-10-15 00:00:00 Case Management Brianne Britton [facility] 1.114 350.1.13.10 4.2.7.2.686 [id number] [facility] 2021-10-15 00:00:00 2021-10-15 00:00:00 Orders Only Doctor Unassigned, [place] [facility] 1..114 350.1.13.10 4.2.7.2.686 [id number] [facility] 2021-10-14 14:00:00 2021-10-14 15:15:08 Outpatient CAROLYNN ALONZO [facility] [id number] [facility] 2021-10-14 14:00:00 2021-10-14 15:15:08 Initial Visit Carolynn Esparza [facility] 1.114 350.1.13.10 4.2.7.2.686 [id number] 134 [id number] [facility] 2021-10-14 14:00:00 2021-10-14 15:15:08 Outpatient CAROLYNN ALONZO [facility] [id number] [facility] 2021-10-14 00:00:00 2021-10-14 00:00:00 Orders Only Doctor Unassigned, [place] [facility] 1..114 350.1.13.10 4.2.7.2.686 [id number] [id number] [facility] 2021-03-28 14:12:00 2021-03-28 16:13:00 Emergency Avis Banuelos [facility] 1..114 350.1.13.10 4.2.7.2.686 [id number] [facility] 2020-08-20 14:30:00 2020-08-20 14:30:00 Outpatient BRIANNE NGUYỄN [facility] [id number] [facility] 2020-07-31 13:00:00 2020-07-31 13:00:00 [facility] [id number] [facility] 2020-06-21 11:46:00 2020-06-21 13:39:00 Emergency Charlene Whyte F [facility] 1..114 350.1.13.10 4.2.7.2.686 [id number] [facility] 2020-06-21 00:00:00 2020-06-21 00:00:00 Orders Only Doctor Unassigned, [place] [facility] 1..114 350.1.13.10 4.2.7.2.686 [id number] [facility] 2020-05-28 13:30:00 2020-05-28 13:30:00 Outpatient BRIANNE NGUYỄN [facility] [id number] [facility] 2020-05-01 09:30:00 2020-05-01 09:30:00 Outpatient CAROLYNN ALONZO [facility] [id number] [facility] 2020-04-30 08:30:00 2020-04-30 08:30:00 Outpatient BRIANNE NGUYỄN [facility] [id number] [facility] 2020-04-28 15:15:00 2020-04-28 15:15:00 Outpatient CAROLYNN ALONZO [facility] [id number] [facility] 2019-03-06 13:43:15 2019-03-06 14:49:14 Office Visit Marley Valencia [facility] 1.84.114 350.1.13.10 4.2.7.2.686 [id number] [facility] 2019-03-05 00:00:00 2019-03-05 00:00:00 Case Management Brianne Britton [facility] 1.2.840.114 350.1.13.10 4.2.7.2.686 [id number] 134 [id number] [facility] 2019-03-05 00:00:00 2019-03-05 00:00:00 Telephone Esparza, Carolynn Nielson [facility] 1.2.840.114 350.1.13.10 4.2.7.2.686 [id number] 134 [id number] [facility] 2019-03-01 08:58:15 2019-03-01 09:51:29 Office Visit Brianne Britton [facility] 1.2.840.114 350.1.13.10 4.2.7.2.686 [id number] 134 [id number] [facility] Results Test Description Test Time Test Comments Results Result Co mments Source [id number] 14:19:24Ordered by an unspecified provider.[facility] 2025-03-27 21:08:34* Test Item Value Reference Range Interpretation Comme nts WBC (test code = 6690-2) 9.26 4.30-11.10 RBC (test code = 789-8) 4 3.93-5.25 HGB (test code = 718-7) 12.4 g/dL 11.6-15.0 HCT (test code = 4544-3) 37.7 % 35.7-45.2 MCV (test code = 787-2) 94.3 fL 80.6-95.5 MCH (test code = 785-6) 31 pg 25.9-32.8 MCHC (test code = 786-4) 32.9 g/dL 31.6-35.1 RDW-SD (test code = 51003-2) 46.7 fL 39.0-49.9 RDW-CV (test code = 788-0) 13.4 % 12.0-15.5 PLT (test code = 777-3) 267 166-358 MPV (test code = 33273-8) 10.5 fL 9.5-12.9 NRBC/100 WBC (test code = 1682003801) 0 0.0-10.0 NRBC x10^3 (test code = 7445953256) See_Comment [Automated messa ge] The system which generated this result transmitted reference range: 10*3/?L. The reference range was not used to interpret this result as normal/abnormal. GRAN MAT (NEUT) % (test code = 770-8) 81.2 % IMM GRAN % (test code = 7192656771) 0.4 % LYMPH % (test code = 736-9) 13 % MONO % (test code = 5905-5) 4.5 % EOS % (test code = 713-8) 0.5 % BASO % (test code = 706-2) 0.4 % GRAN MAT x10^3(ANC) (test code = 3697268716) 7.51 10*3/uL 1.88-7.09 H IMM GRAN x10^3 (test code = 1251845367) 0.04 10*3/uL 0.00-0.06 LYMPH x10^3 (test code = 731-0) 1.2 10*3/uL 1.32-3.29 L MONO x10^3 (test code = 742-7) 0.42 10*3/uL 0.33-0.92 EOS x10^3 (test code = 711-2) 0.05 10*3/uL 0.03-0.39 BASO x10^3 (test code = 704-7) 0.04 10*3/uL 0.01-0.07 Lab Interpretation (test code = 02522-0) Abnormal [facility] [id number] 15:15:00* Test Item Value Reference Range Interpretation Comme nts POCT PREG (test code = 1605) Positive On board controls acceptable with C Line (test code = 3574) Yes POCT PREG LOT # (test code = 3575) POCT PREG TEST DATE ( test code = 3576) [facility] w/o Specific [id number] 15:14:00* Test Item Value Reference Range Interpretation Comme nts POCT PH U (test code = 3254) na 5-8 POCT U LEUK EST (test code = 3263) na Negative - Negative POCT U NIT (test code = 3262) na Negative - Negati ve POCT U PROT (test code = 3259) negative Negative - Negat magda POCT U GLU (test code = 3256) negative Negative - Negati ve POCT U KETONE (test code = 3258) na Negative - Neg ative POCT U BLD (test code = 3257) na Negative - Negati ve [facility] CLC or LCC Only - Wet [id number] 02:24:49* Test Item Value Reference Range Interpretation Comme nts CLUE CELLS WET PREP (test co de = 2830062682) None Seen None Seen HPF TRICHOMONAS WET PREP (test c ode = 2933286935) Present None Seen HPF A YEAST WET PREP (test code = 2750181493) None Seen None Seen HPF Lab Interpretation (test cod e = 58656-3) Abnormal [facility] Hospital[facility]inalysis2024-11-17 02:22:33* Test Item Value Reference Range Interpretation Comme nts APPEARANCE (test code = 7706360991) Slightly Cloudy Clear A COLOR (test code = 5219431551) Julieta Yellow A PH (test code = 9673030479) 5.0 4.8-8.0 SP GRAVITY (test code = 0620511488) 1.028 1.003-1.030 GLU U QUAL (test code = 5878651980) Normal Normal BLOOD (test code = 1210076216) 1+ Negative A KETONES (test code = 2850017017) 5 mg/dL Negative A PROTEIN (test code = 2887-8) 30 mg/dL Negative A UROBILIN (test code = 0736685341) Normal Normal BILIRUBIN (test code = 2799920554) Negative Negative NITRITE (test code = 1348384994) Negative Negative LEUK ZAIDA (test code = 5373087698) Negative Negative RBC/HPF (test code = 9085742459) 5 0-3 H WBC/HPF (test code = 6722831679) 3 0-5 BACTERIA (test code = 2445599469) Negative Negative MUCOUS (test code = 6373189723) Marked Negative LPF A SQ EPITH (test code = 9734539993) 5 HPF Lab Interpretation (test cod e = 63351-1) Abnormal [facility] [id number] 02:19:00* Test Item Value Reference Range Interpretation Comme nts POCT PREG (test code = 1605) Negative On board controls acceptable with C Line (test code = 3574) Yes Lab Interpretation (test cod e = 24240-3) Normal [facility] [id number] 19:07:00* Test Item Value Reference Range Interpretation Comme nts POCT PREG (test code = 1605) Negative On board controls acceptable with C Line (test code = 3574) Yes POCT PREG LOT # (test code = 3575) POCT PREG TEST DATE (test code = 3576) ENE (test code = ENE) accurate developme nt and interpretation of all internal controls Lab Interpretation (test code = 40724-3) Normal [facility] [id number] 17:09:45* Test Item Value Reference Range Interpretation Comme nts Case Report (test code = 0796036210) Surgical Pathology ?Case: [id number] ? Authorizing Provider: ?Kalina Haro MD ?Collected: ? 05/13/2023 194 ?Ordering Location: ? ? [facility] ? ? ?Received: ?05/13/20232151 ? Surgical Center ?Pathologist: ? Tatiana Rodriguez, ? MD ? Specimens: ? A) - FALLOPIAN TUBE, LEFT ? B) - UTERUS, INTRAUTERINE DEVICE REMOVAL ? Final Diagnosis (test code = 5436048437) t6zykGUlDPNpe3vgJSGwxXBd ZzEwMzNcZnRuYmpcdWMxIHtc cnRmMVxhbnNpXGRlZmxhbmcx EXTxQAR6utRgAGIqMUI8ZJE0 QeMlXSErNhOqALGlKPQqv1gw q3YwaZQmpHSkZDkiuKJqklKk tc34jMV2gA76VW9vGWHeYzG1 XOCzuxE5Nun5MQPjZWAymWDn G697q8utm7yksoGacGJ8jLki WCTeyeauFbM4XFtbYRLhwlst FNw3GZrdJFOfpXM4NQWglGPs Y6MiQOJwCZ0oyki6NNS4LRzx MYQzSjS5XZWjiAOtIVMvjVqw UGtol470PYZ0KvDjGCXzpzPd oGzrnU6hNbEvFDhjMLCqIN2k LgQDGG3SMIPDGPFKCoZqJU0G GUBJJU0AEFGmHEKHT87EChID FRYEOGDSNIBZPEiMKY0EZOVA T23HSyskRFZfUFJxRNCkMREH TExPUElBTiBUVUJFIFdJVEgg B2qBPcwPEaqLOMQCCSpYXTGT RbFoQbxJK0RtM4qUNOYuCYNU DiHWC0MLFiReE6jKBQXFW6PI ORjNTFDJUZpMGM8KTQmhQTSd jFDbGFFgVZRGKSFOQtjvGQ8Q FqCNRHTJXD5WAZDOFdmJNVCC OJ4QHfWIErPdmYRpQSTkPGVy WKSYMd1QOqGHUdhWPEpMLDZz L4BWU8HdVSGFK7QBKHGRU78b XHBhclxwYXIgUmFzaGEgQWxm KBE7RFbjJG9XJ3vCUTYljKZu VNNqpz88SNI1WfJgv8H6RAAy BwCmMMJcNH6kvVepLQTwBA2y KHGaQ4rjrJ7zugg2FtBqWOUa ObY1YJYkmdF6Jor8OBVaYDoy d7nbw6UtV0QtzKOokVc5l6zv TLQfJlR0gAReNBxpC8nqvfCn pAWyUWHjCBm0wLuvQyLaBFEo r9pezgTjVsHbGLPzAUDnJUCk tGlcayv2kN65PXUcpW9eqFKo GNdxjeIeRlR3HEpsJOZdQbH0 CDWkgFXmIOWlC2bhRSWkXHii EIAeNQhpcAFoLFH9wSeia5H8 bGVzaGVldHtcZjBcZnMyOCBO t2TrFQe3mBtzJ7OiSGVvHaX5 bHQgUGFyYWdyYXBoIEZvbnQ7 dI64MMwqznQ7uCIrs0Ntx15m r488tS9peWJvVYS5SQYjZWWr gVLdLFByJLH5UIOlrEKgP2em RQFcTS1wzceaDHlfMOmhGLQn oWI4NYKsaBQhC8HqOPSwPPdz COMidif4AfDsIb9ytVQbhSqh RBpjc8phv3tctGYtAnj2UDNp FcUoDvrnVCyqh4Tbn1vyMZBs ko2qBPA5nPBgpPpdp4I9hOYy MONmqMExlmWoCSItElI1REjv WN9has68FIRsTAT2gi8blKOj qUltxkKfuSHcPZirD9IfGDNf i788BYIeG9VvOSXuk0K5jqWx OmWeHSPaqHN8pmO5SCXrEVm2 wSMljkZ8bbWkhPXtW4htxS9b MKOyXI8ccpmfm4wpJQqpLHyz RGAoeHL4zwI5JQRqkXGiV3Te wA6xNMPlTCntEGCiqkp6YnKz Rf3umOPzgWhtKAnpGvztZLpr XHBnbmNvbnRccGduZGVjXHBs YWluXHBsYWluXGYwXGZzMjRc dSoalXgbkV3yStDgXhEsDFqe SA8dLJLgT5ndiPLbSMWvYFZz C9zcWmScrL3taXipUNyeIhLj ZnMyMFxwYXIgSSBoYXZlIHBl hxOsbkEgcVerurS4fXK1ZPRb EWorIGSmDWGmfSLcqt6tzWvo GBXrSE4zPKGdrkHoSRjrnYpf ZYfkUYZ9SSFukNZosMOwhLGf ZSBieSByZXNpZGVudHMsIGZl mYfsy4Vlr7BslUN1sW7tb6ko x6JmDFLxjHG0OW36rzQ8pN3q RGGpQJ1lYWSfFC6ecKFkjJFq PCRda02ceQmjdaEnSSSisiGa XHBsYWluXGYyXGZzMjhcbGFu ZzEwMzNcaGljaFxmMlxkYmNo EYPfFXcqO4jfVfHnCtSiEWsq YKB7zKkpjyEhIItqu7NpF3Pz MjAwMFxhbnNpXGRlZmxhbmcx ZKQtHNN9pxFlUCZvAMcyOBBb CIclZv2lrKNmoCbuDyBpOGXk n8npqoPMTWidYxIcO585VCRo FXmol9ica3EhZWDnqYFmg7D5 GCJWmzvnhSw9nIaiW88yh8O2 UmldC2emIRApSFJwS1TtQB6t HFDoEiw2PZI6FRI0DARvZTOe D6NmBR9gYDFfsLVxUAv3p3tr mXvwIIJaUIO6g7wrSJmtijP4 RT3mqm0tdIq1i8bhpbYfEBJw VBIymUQJEVGzK8RrvEgdMa7g vSm7gNceXeugZKC4Qwe8BF8m at96zri8lGmkHAXydojnAoQ7 GCgcISVwyxkuEJr9NNmdRPZw tUK9ADMlrRVrU8VsVHIaMB2g azr9STQ6PDoiGKTpPcR5NBIx bCHgFTKndLcbXIowm369OWV0 LpHmTK5iF5Aqf0T9vT9hwFRo QPVinBHcObPtPDCley6dqYZy NKwsm3WbV95vuLE6FGhne9al RS0gTxK6fwMuQEkvl7ecgL2k CgK6UAdiWX0cnc64UHKsIWZ5 ej6vmXHhsFsfnjIhwXJbIXum V4BsPAAok709EMXiP3CqVMIz e2Y5tbUrHfBzGTIbjPB1tmD7 YOZvGRf2qAXgcqK9vmNnwNVw P7mrhV7dJNPqWE5rufljm1kl QSquAZwdWDOohID5reA6HTLl jYYqE1VeeG9zNLKbDJfhUBXh tmd7WjSaFf3xsRMofApaYMju YmtwYWdlXHBnbmNvbnRccGdu ZGVjXHBsYWluXHBsYWluXGYw EQXvRaAviTUoPPrky3AbomRg hRdaJCFzNZe4oxCizznbtSs1 kCVvpMzvRHZwkTooxN0pNuDx JlOeMZymIJ4hGFQlR2sgzMWq VZNaITQcD5uxOsDepX0ceEfu MVxjZjJcZnMyMFxsdHJjaFxw YXIgSSBoYXZlIHBlcnNvbmFs jKybpbL6dEZ3MTIiTMgrBXGv ROJqiXObdo4rlFnxAMTxAY2e IGFncmVlIHdpdGggYWxsIHN0 YXRlbWVudHMgbWFkZSBieSBy LZQzWLJivOMfVYZzlUodn0Ca o2TedWI3vY9oo5ybn9EpJBPp qWQ6DI65yhE2cD1eWYQeNC5z YZLwGJ6rqCVeqUGmQSWxh85g dGhpcyByZXBvcnQuXHBsYWlu XGYxXGZzMjBcbGFuZzEwMzNc aGljaFxmMVxkYmNoXGYxXGxv E7qyJtFlQ4DzVRUxVzEhhRRu KDTxzgabUIWss4UwMuYax6gv TVjep9svrPw1VLnucFFijxcp JKqnkxU1DRMuNAdyZGQjCIYh MTRcbGFuZzEwMzNcaGljaFxm BLwiYhHaEKFuWXdjG2ntIwWq Z9OnMJWdYZWwrWByZ7rgDSI6 bD1so6pzh1NrrCUgWpYcb9gb bmFsIGNvbXBvbmVudCBwZXJm t0LaUGFzCZIgQTSJGs8SSTQz rHXhB0a6mFCMFL2fiJAxOFOm LSQvR8VgLfBSryRtu2Y7YFEx bTXnSKKMBIRllGOoL3v9eMco JWabZzx5AeFbrUfjiG8iKeKy OdMyEXpcEP7pCGCvS9nzuUGt VQWbNKWtL4hrTnAyaG6peCws MVxjZjJcZnMyMFxsdHJjaFxw YXJ9fQ== Clinical Information (test code = 4831017766) LEFT LOWER PELVIC PAINSUSPICION FOR ECTOPICDESIRES IUD REMOVAL Gross Description (test code = 4606096911) s1gnnQMuRUNqjMYEEWC7BVVq IC8wzMjkcJt1hIxaMTTttjJ5 gQAeNFwxu0sqXYJ7g1yqddRC IyzfJUIjWL2mZFdqCOCaOC4r ZmUwXGRlZmYxXHBhcGVydzEy GqGzONXmyIRfrRZ2KBHaYP5u uljlTRoxAHdxIQEnnlW9DLYb pRDmV1UkFDNqDM5jhwwsPHU1 PDQGKfbcNh8ceFKwiWivSfXg ZmNoYXJzZXQwXGZuaWwgQXJp OHy8pX1BAuhjIIL0JDBLTkrj EyvlmPqhu7PosRRoQXQnIHeg aWQgNTEwMDAgXFxkYiBPVlIg BiQ5WYLoPlQ7KkI9AEz8PPIK GZSuShk2SmC6RDG7EQh8CLSz BG4mTDvifNKaTNmyFleaNGsi H396MOyyGWUhO8RpX5YlVJmn ZyBcXGlkIDUxMDAyIFxcZGIg P4PDMUZbZYx5LJngBhNzOMd6 PNypS6COJIEdGQB8XMZuYog8 CfL9WFf6QIXTRx3jOTetNOV3 NBG5ADY9HMj9PEPgZKIeAeGu SMDlNQIzYBcdyVEsGB9hfSld WWAbZU5HBJIuTLssNJVtQgXy H0MEE1jHEQ1rORolfMDbcOgo goOsZETcwvQGFaecTEAlWO1E PEJqIZdpFJx4duCuLAIbWmJw EFNcM26gf1RYf0IyKC5MBZf6 ekEuehlmcX8xYWZihpHeo7Oq MFxlcGljWHNhMzAgDQpTcGVj jH3umwRAQNmkFPJjD6XcqaSv HDblDAAlex9gjQkoVIqlRhOc KCNen2r5kJH2mKCqvKL3qBTy dVjwDY0rmDNiPYXJKN09cIPo cvmdYwAlrZykgIdcrqN0uSYn JGAxPGQ1ZxGskxCjY80md5oq zIDyu7AlWZIgiJ0agFBxxYLn LXBpbmsgZGlsYXRlZCBzZWdt CO12KC5mOVFpoPAgyFL4KONr ViUblG7ncDIpKCQ2WjJaEYGk OFVqyHZqypWzVQ8eyPdnOrnq AP8aCDHlFKcxAIQhSB5apSRc KFV1qSUaMPVsu1Slr6QwjGXj KQJaS9LdYZw2BGmrVjXmCYXn OQSbRMStlB8xXDMpdC11BpSl V7NwgQJewRnis0HglIthojva TzNeKCLgRQehJEAqaMX2TUNb mYPeRI5tn4i6yGSsHZOxSMZt XNRiyT37tTNtQXUjd91lGPNu t5YiHIDIeuZxVXVqnRFjvuVu yUOriIBbw3FeM6bwlfcelhgo YBAgfWycRQZpXCJlyn3xh7n9 CRltPA79cCZfJZQnWL1zONGs TAGgkVJrlX3ucpDcecHkijDf ixTzeFDdoHYypOR4VFTgdO3x OGWtSFsbWS4JNXWqhULOEOA6 IV3yVOmbVACbW4KcQ9VygvL8 ZDZmwrZCOxeaUowhwWpzb5Ju dCBcXHNnIFxcaWQgNTEwMDIg HHbaGcKRSpIuNsD4BSAhShK4 OtL9UMe4WJBWSoPnEbYjAxPq WTW8CSWsFFf1WHi1FLcMKuLx NTU6NiU4OYU9AZY0CqU3KFvg cWSuGKpbg5YhMpLaSTEuMSmy buT9XNAsncCir6KwXFXvRCSr S3iiQxUpGTQCWnbdgqFzOEVU RUNJTUVOIEJcZnMyMlxwYXIg DQpccGFyZCANClxwbGFpblxs dHJjaFxmczIyXGVwaWNOZXN0 UP9hEHSWIclsuELlRZGqaFwr VRiivK9vHNRiRsAnUWRqP0qz ObFrED6NK8QlS2vfOP5cBHNv cyByZWNlaXZlZCBmcmVzaCBs RCBajZhwART5tPYrFHOkYFDr YHNfKH62UOqNUUSvufNeVVsv VUggbnVtYmVyIGBgIGludHJh tXCigbshLGKsOQHoO4MrxdRf v4CgoUjrHwNzD8O5UAXlWGEj o29ocPY2qlAzQhEhCQSgqlhm XXZ7rRi1IQXtiHYfkGaaIIjv y6VavOsshU63GYE0BDeebDCj vRMtoxvfNEQjKVEcL2GtFRBl lsveNKVzsiU3tVBum9xgcMMi u7ZmyZrhINablTPrczLEKBg9 rJNhLsRyYUNqaSFzFB5hFRI2 vuYpUWKnAtRynBUvYE0ghOzi YL3eLISvNBLbnTTomcFphBKq ZXRlciBhbmQgdGhlIHRvcCBj ll1jxbXvQUJhzUGfr5CrQBUi Nq44SXbrYH1sZEgcLG8cXGTo CB8fWKokptIskUYtSVEql6Tf cIKbp7CivW8rIKf3TgVlS11c bH0wpONcJ4UwZKTkIWAmKUAk KWJxXA5iBL5qYLNcOHfzKVBb MO1ziUUaICQrqRNcH7yhPUH7 gtG5xVViWt21cA7gNX4sISDo LOYkRIBqYKJ4YY0rTUivf1Pg EG5wQDbeADoqbJnzbC8qoyKf aGTqXYMhKJKlj7OcBhFWvWRf i3BbI9erQQ5rxQIrYp2jCQlj b1TsVTY8ZR6guhK3oV5lOP4h bHkuXHBhciANClxzYjBcZXBp F7vxQrKiRKxraBVrMH5XDfYf sXPnUBPHqNdymwO2VQKQOXBi QQDJINqbgMVvYM7ZEVKnGrOg PGNuU3iaRXFyRB8NKVLivIIV BWS3UJ7hWNjpQASoE9XnN5Nz enP6k1jkwSatm1TikGPmUT6p gSSwTI3YJWXqccWuJGe1 Disclaimer (test code = [id number]) t0kshAOzNTMul1sbMDXliOHy ZzEwMzNcZnRuYmpcdWMxIHtc xsRpQLtgi7AnT1KnUdEfLRhx bnNpXGRlZmxhbmcxMDMzXGZ0 nyDsDQIqIAzyEYEjBAvhSs2j tUGmmZgiRqBgAVCer0ujugJC VFhqKdQcR803DUEwUWtxt1rg q7XlJMWoqFZtf9U1ZFPGsdfa dAo8sPnvS67kw5J4GakbN9ll UYDkYJEsV1BoQJ0gGCAxZwt8 ESC1OYB4BUFhQPJnP9SvRH5g CFYmuIWeXHu7u1mqiCjhFMPy BZI7n1pnLVdurzHxYB8bxc4r kMe5n5rzlmLmVPZcDSQmbFXO ZRYpS1DcnVnsEt7qrWc8kBgw QofhLRV4Xvz9FL9rjo54mfu4 bYfiLJGzzdwfHnK6DGdrPRRo mifiKWg0VYkmANLjjPG0NJFt uTHnD5ZsWRAlMZ2bozq8HWV4 WOtxGVFxZoQ6WJGskWIcKBBd lAfiVVzni067KPG9VeJuFF3p X0Qdd9F9hN2qjCUlGEEplNMs KoLkRMFpqa5ukFDzIKyaw7Rb ERW8jmH0lYJkvDDrYLCgLF18 Rwmql7QkDpmfe9FiC93ajKW4 QLabx5mdSN1zUnB6jkCqGVqq m6mqqN9iQeX9VDmrNS2qVC0r XJBqkA1vtubqXSFdDzKiqdsd GAWijUzaewAnUx1viAiaTYO9 VAegO0jomA5dMpF9DFisR5ya vN6kLPk7DMhyeTT3ARMuyQ5p MS0bhfdyr4huSSsfDLegRWBt tbC9zpR1HFKxzAYrE3PjwE5u PVPrPE0dkbfgj2xnCBY2BIea FWGrYHF6McQtECZtl5Exyra3 CdRti8TvkOIbDYbeR77of310 ZJGmymNpE0rkuMSwrhbcwOJy sfqvQSkhpaO1JCTospSak4Pw FIZuPRM0GRnsXKzwbPKyEVSv hXxtu4cwZ8NbcJNqVZWuRWtb XGYxXGZzMjBcbGFuZzEwMzNc aGljaFxmMVxkYmNoXGYxXGxv L8slOpQgN1PsPUAhHhYwyNHh W6icTVecbmFsCLWmkpUfjGA5 WRscH9x3GCVfdtUuwYb8cuIr FsXlGXVuBDG2HBvseZPpRXUu k4SyooltqZGkWv8oaNMfMOSs lE1qNDInSDErKTjbHT3saQi1 WPMHgZKrwNCqDgUCDZLsXE14 loCsTDHSztvwq4O0ATibDUYr b4GtxOZmP7azx3HnYRCia40y XC4ib0U0c8uvBAL3DP3jh5Du IKRxfLMryBRhPSSao6Jjunkn y4JwGVVfdtLuh0IrJUQykuNs oXIyGZZmhkQygc0xbsQuIFEj FOArT8IzfgfflIehgmLrBPRe sx8kccDrZEN4PSHXKMPuNMHp c2KqxA0suUJJGJF3eBIbni4i bfJMvOCmETLczh87TUYpWA9v P2xoVWLpRUJzsxExxRCvg0Pa XHTmcMM8cIIpWI4XMrPTc28g IGFuZCBEcnVnIEFkbWluaXN0 ebJ2oZ8kCZpTYVGsHas+IFRo DZWMCKTiNG4updJcc4OvtfQl hAmfVMOfxCKqx9QyfZTxx9Ww rEzte5LvxTRieBVeAS3tGYYr clxwYXIgVVRNQiBMYWJvcmF0 j5PaTTTvUCIeWKM2vQemvuf3 VYDunB9iXRVoR0rrjryiYUdx ZZEfi2RnbZ3bdBDBqLAot5Jq zNGvsGIKcVRqOH6nxdHhRMqP JDiUUCQ7ugSjMUCtq1XbPNol C0kjW74zsZloqZn3mZN2IGA4 pK3lWoi+IFxwYXJccGFyIEFw xRJmcAAqPOGjuAyrvnHxO9Ap ehNwcM6wmVMxsoGyKR1wFK6p M0I3tJBrMHZhdtXlj9joJDoe dmUgYmVlbiByZXZpZXdlZCBm k3MbOLspYPD7JWrmyqCmciFc dWRpbmcgSCZFLCBTcGVjaWFs TUI1QBpwfcPfblKpUU5qzJ9r zUydiM6yxSJxuFH1qkbmBLXk XUAclXcyMSObLU1npRytxP5v JwRpIwDrLZiaOX0sTLHuJ5gt wCGxBERpRNRnB9fiKnHlsB4t aFxmMVxjZjJcZnMyMFxwYXJc cGFyXHBsYWluXGYxXGZzMjBc bGFuZzEwMzNcaGljaFxmMVxk UzFpPUOwKJpaX5lrLsFmT7Vu NHBgBwSedHIfC0pnUIeuRRV0 DDPyRL4ndQJlMX23nXJle6iy RHtukUzhqa1sP92loUCyIBne dEyaWDLsi70ei5EyCGAqqqQr rl7cXQDtbcS5eR6fSAIkuLov RAHvoKTaJDKkl8QuAPrpaXYt emVkIGdsYXNzIHNsaWRlcyB0 byBhcnJpdmUgYXQgdGhlIGFi f7IiCTMbDWhuu6Ksvz4xuLNx IYHhoiLOzAcwiPJleR6oB6Zr ZRCnGJAflf6aKXTqiG9rBYes z9ZjkqcuWWDaVSQnZTXlqgTf or2cISVvyVYDMH4RWWvcoBBl f7WpyaAoZ0qJLYS9JOLuOiBv JlgvGQDgqZOsxCAbCRWqot01 ZXTvsV0reXscYRKbjD8vcJ4h nRtlcB2eTtZiLhYdHEbvFA1i ORXfZ4izjPJrPKOiLMQaX5cz OwAfsR0kqNfmSEpfFzMxTaPi LEgoSYK7iV== Embedded Images (test code = 3499837215) [facility]. METABOLIC PANEL ([id number])2023-05-15 04:27:58* Test Item Value Reference Range Interpretation Comme nts NA (test code = 0742483573) 140 mmol/L 135-145 K (test code = 8236728207) 3.3 mmol/L 3.5-5.0 L CL (test code = 4520329493) 105 mmol/L 98-108 CO2 TOTAL (test code = 1231542405) 21 mmol/L 23-31 L AGAP (test code = 6656976383) 14 2-16 BUN (test code = 8251323545) 10 mg/dL 7-23 GLUCOSE (test code = 3471695354) 95 mg/dL 70-110 CREATININE (test code = 2244137664) 0.58 mg/dL 0.50-1.04 TOTAL BILI (test code = 4592185602) 0.4 mg/dL 0.1-1.1 CALCIUM (test code = 2575561075) 9.5 mg/dL 8.6-10.6 T PROTEIN (test code = 8485774956) 8.0 g/dL 6.3-8.2 ALBUMIN (test code = 8329123966) 4.9 g/dL 3.5-5.0 ALK PHOS (test code = 9271194316) 48 U/L 34-122 ALTv (test code = 1742-6) 21 U/L 5-35 AST(SGOT) (test code = 9664893808) 27 U/L 13-40 eGFR (test code = 2069258023) 128.8 mL/min/1.73m2 ENE (test code = ENE) [...] imaging tests). Lab Interpretation (test code = 01701-9) Abnormal [facility] WITH [id number] 04:17:55* Test Item Value Reference Range Interpretation Comme nts WBC (test code = 6690-2) 8.99 See_Comment [Automated [employer]] The system which generated this result transmitted reference range: 4.30 - 11.10 10*3/?L. The reference range was not used to interpret this result as normal/abnormal. RBC (test code = 789-8) 4.48 See_Comment [Automated [employer]] The system which generated this result transmitted [...] 33.5 g/dL 31.6-35.1 RDW-SD (test code = 58907-1) 43.0 fL 39.0-49.9 RDW-CV (test code = 788-0) 12.6 % 12.0-15.5 PLT (test code = 777-3) 375 See_Comment H [Automated [employer]] The system which generated this result transmitted reference range: 166 - 358 10*3/?L. The reference range was not used to interpret this result as normal/abnormal. MPV (test code = 33359-2) 10.3 fL 9.5-12.9 NRBC/100 WBC (test code = 1711947983) 0.0 See_Comment [Automated me [employer]age] The system which generated this result transmitted reference range: 0.0 - 10.0 /100 WBCs. The reference range was not used to interpret this result as normal/abnormal. NRBC x10^3 (test code = 6426982320) See_Comment [Automated messa ge] The system which generated this result transmitted reference range: 10*3/?L. The reference range was not used to interpret this result as normal/abnormal. GRAN MAT (NEUT) % (test code = 770-8) 68.1 % IMM GRAN % (test code = 0944824243) 0.20 % LYMPH % (test code = 736-9) 24.7 % MONO % (test code = 5905-5) 6.6 % EOS % (test code = 713-8) 0.3 % BASO % (test code = 706-2) 0.1 % GRAN MAT x10^3(ANC) (test code = 4421946196) 6.12 10*3/uL 1.88-7.09 IMM GRAN x10^3 (test code = 3204716917) 0.00-0.06 LYMPH x10^3 (test code = 731-0) 2.22 10*3/uL 1.32-3.29 MONO x10^3 (test code = 742-7) 0.59 10*3/uL 0.33-0.92 EOS x10^3 (test code = 711-2) 0.03 10*3/uL 0.03-0.39 BASO x10^3 (test code = 704-7) 0.01-0.07 Lab Interpretation (test code = 37416-2) Abnormal [facility] with Differential - On Postoperative Day # [id number] 10:46:57* Test Item Value Reference Range Interpretation Comme nts WBC (test code = 6690-2) 6.55 See_Comment [Automated messa ge] The system which generated this result transmitted reference range: 4.30 - 11.10 10*3/?L. The reference range was not used to interpret this result as normal/abnormal. RBC (test code = 789-8) 4.14 See_Comment [[employer]ated [employer]] The system which generated this result [...] 33.5 g/dL 31.6-35.1 RDW-SD (test code = 20817-6) 40.9 fL 39.0-49.9 RDW-CV (test code = 788-0) 12.5 % 12.0-15.5 PLT (test code = 777-3) 330 See_Comment [[employer]ated [employer]] The system which generated this result transmitted reference range: 166 - 358 10*3/?L. The reference range was not used to interpret this result as normal/abnormal. MPV (test code = 88651-6) 10.2 fL 9.5-12.9 NRBC/100 WBC (test code = 9385842145) 0.0 See_Comment [Automated [facility] ssage] The system which generated this result transmitted reference range: 0.0 - 10.0 /100 WBCs. The reference range was not used to interpret this result as normal/abnormal. NRBC x10^3 (test code = 1306233181) See_Comment [[employer]ated [facility] [employer]] The system which generated this result transmitted reference range: 10*3/?L. The reference range was not used to interpret this result as normal/abnormal. GRAN MAT (NEUT) % (test code = 770-8) 88.5 % IMM GRAN % (test code = 9728316933) 0.30 % LYMPH % (test code = 736-9) 9.0 % MONO % (test code = 5905-5) 2.0 % EOS % (test code = 713-8) 0.0 % BASO % (test code = 706-2) 0.2 % GRAN MAT x10^3(ANC) (test code = 4120730425) 5.80 10*3/uL 1.88-7.09 IMM GRAN x10^3 (test code = 6847499297) 0.00-0.06 LYMPH x10^3 (test code = 731-0) 0.59 10*3/uL 1.32-3.29 L MONO x10^3 (test code = 742-7) 0.13 10*3/uL 0.33-0.92 L EOS x10^3 (test code = 711-2) 0.03-0.39 L BASO x10^3 (test code = 704-7) 0.01-0.07 Lab Interpretation (test code = 10320-2) Abnormal [facility] with Differential - On Postoperative Day # [id number] 10:46:57* Test Item Value Reference Range Interpretation Comme nts WBC (test code = 6690-2) 6.55 See_Comment [[employer]ated [facility] [employer]] The system which generated this result transmitted reference range: 4.30 - 11.10 10*3/?L. The reference range was not used to interpret this result as normal/abnormal. RBC (test code = 789-8) 4.14 See_Comment [Automated [employer]] The system which generated this result transmitted [...] 33.5 g/dL 31.6-35.1 RDW-SD (test code = 13763-1) 40.9 fL 39.0-49.9 RDW-CV (test code = 788-0) 12.5 % 12.0-15.5 PLT (test code = 777-3) 330 See_Comment [Automated messa ge] The system which generated this result transmitted reference range: 166 - 358 10*3/?L. The reference range was not used to interpret this result as normal/abnormal. MPV (test code = 24022-7) 10.2 fL 9.5-12.9 NRBC/100 WBC (test code = 5993744694) 0.0 See_Comment [Automated me ssage] The system which generated this result transmitted reference range: 0.0 - 10.0 /100 WBCs. The reference range was not used to interpret this result as normal/abnormal. NRBC x10^3 (test code = 9922192069) See_Comment [Automated messa ge] The system which generated this result transmitted reference range: 10*3/?L. The reference range was not used to interpret this result as normal/abnormal. GRAN MAT (NEUT) % (test code = 770-8) 88.5 % IMM GRAN % (test code = 8398170340) 0.30 % LYMPH % (test code = 736-9) 9.0 % MONO % (test code = 5905-5) 2.0 % EOS % (test code = 713-8) 0.0 % BASO % (test code = 706-2) 0.2 % GRAN MAT x10^3(ANC) (test code = 5422783442) 5.80 10*3/uL 1.88-7.09 IMM GRAN x10^3 (test code = 6232678869) 0.00-0.06 LYMPH x10^3 (test code = 731-0) 0.59 10*3/uL 1.32-3.29 L MONO x10^3 (test code = 742-7) 0.13 10*3/uL 0.33-0.92 L EOS x10^3 (test code = 711-2) 0.03-0.39 L BASO x10^3 (test code = 704-7) 0.01-0.07 Lab Interpretation (test code = 29543-7) Abnormal [facility] with Differential - On Postoperative Day # 44357-78-84 10:46:57* Test Item Value Reference Range Interpretation Comme nts WBC (test code = 6690-2) 6.55 See_Comment [Automated messa ge] The system which generated this result transmitted reference range: 4.30 - 11.10 10*3/?L. The reference range was not used to interpret this result as normal/abnormal. RBC (test code = 789-8) 4.14 See_Comment [[facility]ated [facility]] The system which generated this result [...] 33.5 g/dL 31.6-35.1 RDW-SD (test code = 35940-1) 40.9 fL 39.0-49.9 RDW-CV (test code = 788-0) 12.5 % 12.0-15.5 PLT (test code = 777-3) 330 See_Comment [[employer]ated [facility] [employer]] The system which generated this result transmitted reference range: 166 - 358 10*3/?L. The reference range was not used to interpret this result as normal/abnormal. MPV (test code = 05860-0) 10.2 fL 9.5-12.9 NRBC/100 WBC (test code = 9386409555) 0.0 See_Comment [Automated [facility] ssage] The system which generated this result transmitted reference range: 0.0 - 10.0 /100 WBCs. The reference range was not used to interpret this result as normal/abnormal. NRBC x10^3 (test code = 3976558839) See_Comment [[facility]ated [facility] [employer] [facility]] The system which generated this result transmitted reference range: 10*3/?L. The reference range was not used to interpret this result as normal/abnormal. GRAN MAT (NEUT) % (test code = 770-8) 88.5 % IMM GRAN % (test code = 0450975356) 0.30 % LYMPH % (test code = 736-9) 9.0 % MONO % (test code = 5905-5) 2.0 % EOS % (test code = 713-8) 0.0 % BASO % (test code = 706-2) 0.2 % GRAN MAT x10^3(ANC) (test code = 2460573626) 5.80 10*3/uL 1.88-7.09 IMM GRAN x10^3 (test code = 4006745702) 0.00-0.06 LYMPH x10^3 (test code = 731-0) 0.59 10*3/uL 1.32-3.29 L MONO x10^3 (test code = 742-7) 0.13 10*3/uL 0.33-0.92 L EOS x10^3 (test code = 711-2) 0.03-0.39 L BASO x10^3 (test code = 704-7) 0.01-0.07 Lab Interpretation (test code = 52754-8) Abnormal [facility] [id number] 20:30:00* Test Item Value Reference Range Interpretation Comme nts POCT PREG (test code = 1605) Positive On board controls acceptable with C Line (test code = 3574) Yes POCT PREG LOT # (test code = 3575) POCT PREG TEST DATE ( test code = 3576) [facility] [id number] 20:30:00* Test Item Value Reference Range Interpretation Comme nts POCT PREG (test code = 1605) Positive On board controls acceptable with C Line (test code = 3574) Yes POCT PREG LOT # (test code = 3575) POCT PREG TEST DATE ( test code = 3576) [facility] URINALYSIS W/O SPECIFIC [id number] 20:29:00* Test Item Value Reference Range Interpretation [...] = 3257) 250 Negative - Negati ve [facility] URINALYSIS W/O SPECIFIC [id number] 20:29:00* Test Item Value Reference Range Interpretation [...] = 3257) 250 Negative - Negati ve [facility] [id number] 13:30:00* Test Item Value Reference Range Interpretation Comme nts POCT PREG (test code = 1605) Negative On board controls acceptable with C Line (test code = 3574) Yes POCT PREG LOT # (test code = 3575) [id number] POCT PREG TEST DATE ( test code = 3576) 06/29/2024 [facility] [id number] 13:30:00* Test Item Value Reference Range Interpretation Comme nts POCT PREG (test code = 1605) Negative On board controls acceptable with C Line (test code = 3574) Yes POCT PREG LOT # (test code = 3575) [id number] POCT PREG TEST DATE ( test code = 3576) 06/29/2024 [facility] [id number] 16:12:00* Test Item Value Reference Range Interpretation Comme nts POCT PREG (test code = 1605) Negative On board controls acceptable with C Line (test code = 3574) Yes POCT PREG LOT # (test code = 3575) POCT PREG TEST DATE ( test code = 3576) [facility] [id number] 16:12:00* Test Item Value Reference Range Interpretation Comme nts POCT PREG (test code = 1605) Negative On board controls acceptable with C Line (test code = 3574) Yes POCT PREG LOT # (test code = 3575) POCT PREG TEST DATE ( test code = 3576) [id number]:12[facility]* Test Item Value Reference Range Interpretation Comme nts POCT PREG (test code = 1605) Negative On board controls acceptable with C Line (test code = 3574) Yes POCT PREG LOT # (test code = 3575) POCT PREG TEST DATE ( test code = 3576) [facility] [id number] 15:12:00* Test Item Value Reference Range Interpretation Comme nts POCT PREG (test code = 1605) Negative On board controls acceptable with C Line (test code = 3574) Yes POCT PREG LOT # (test code = 3575) POCT PREG TEST DATE ( test code = 3576) [facility] with [id number] 10:05:29* Test Item Value Reference Range Interpretation [...] g/dL 31.6-35.1 L RDW-SD (test code = 95192-8) 47.8 fL 39-49.9 RDW-CV (test code = 788-0) 14.9 % 12-15.5 PLT (test code = 777-3) See_Comment [Automated message] The system which generated this result transmitted reference range: 166 - 358 10*3/?L. The reference range was not used to interpret this result as normal/abnormal. MPV (test code = 14542-3) 11.0 fL 9.5-12.9 NRBC/100 WBC (test code = 6733395469) See_Comment [Automated message] The system which generated this result transmitted reference range: 0.0 - 10.0 /100 WBCs. The reference range was not used to interpret this result as normal/abnormal. NRBC x10^3 (test code = 4197841258) See_Comment [Automated message] The system which generated this result transmitted reference range: 10*3/?L. The reference range was not used to interpret this result as normal/abnormal. GRAN MAT (NEUT) % (test code = 770-8) 80.2 % IMM GRAN % (test code = 6481037193) 0.70 % LYMPH % (test code = 736-9) 12.2 % MONO % (test code = 5905-5) 5.7 % EOS % (test code = 713-8) 0.9 % BASO % (test code = 706-2) 0.3 % GRAN MAT x10^3(ANC) (test code = 0737235499) 11.46 10*3/uL 1.88-7.09 H IMM GRAN x10^3 (test code = 3230789939) 0.10 10*3/uL 0-0.06 H LYMPH x10^3 (test code = 731-0) 1.75 10*3/uL 1.32-3.29 MONO x10^3 (test code = 742-7) 0.81 10*3/uL 0.33-0.92 EOS x10^3 (test code = 711-2) 0.13 10*3/uL 0.03-0.39 BASO x10^3 (test code = 704-7) 0.04 10*3/uL 0.01-0.07 Lab Interpretation (test code = 13103-1) Abnormal [facility] (D) IMMUNE [id number] 23:51:54* Test Item Value Reference Range Interpretation Comme nts RHIG CANDIDATE? (test code = 5055) No- see comment Patient is not a candidate for RhIg- Patient is Rh Positive.Performed at [facility] Laboratory Services - [facility] Blood [address] [place] [address] Free: [phone] No. [id number] [facility] - ONCE [id number] 13:33:07* Test Item Value Reference Range Interpretation Comme nts ABO & RH (test code = 20) O Positive Performed at [facility] Laboratory [facility] Blood [place] [address]Toll Free: [phone] No. [id number] IAT (test code = 1185) Negative Performed at [facility] Laboratory [facility] Blood [address] Free: [phone] No. [id number] [facility]/O SPECIFIC [id number] 15:03:00* Test Item Value Reference Range Interpretation [...] = 3257) n/a Negative - Negati ve [facility]/O SPECIFIC [id number] 15:57:00* Test Item Value Reference Range Interpretation [...] = 3257) n/a Negative - Negati ve [facility]/O SPECIFIC [id number] 16:18:00* Test Item Value Reference Range Interpretation [...] = 3257) n/a Negative - Negati ve [facility] History and Physical Notes Date/Time Note [...] Lower 09/13/2017 Surgeon: Bereket Castelan MD; [place] [facility] [place] DILATION OF CERVICAL CANAL 08/30/2017 Allergies: No [...] abuse or violence. Yes one inside cat. Anglican: Hinduism Lives with mother. 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 Review of Systems: A 14 point [...] obtained. Mily Delgadillo M.D. 02/03/2023 08:49 T [facility] Notes Date/Time Note Provider Source 2025-04-23 13:00:00 50 Glucola was provided @ 1320. No issues. Pt finished @ 1321 Draw Time @ 1421 [facility] 2025-04-23 13:00:00 Images from the original note were not included. Per pt only here for blood work. Venipuncture collection performed by clean technique on the left anticubitus. Total of 1 attempts were made. Slight pressure and a bandage/dressing were applied to the site(s). The patient experienced no complications. The following specimens were processed according to instructions and sent to [facility] laboratories per lab order on 04/23/2025: LT BLUE SST 3 RED LAV 1 PPT DK GREEN (LiHep) DK GREEN (SodH) REYES DK BLUE (K2) DK BLUE (S) ACD Blood Culture NIPT/NTD [facility] 2025-04-22 10:00:00 Age: [age] year old GA: 25w3d Doing well without concerns Hx bipolar disorder - EPDS 0 NOB labs wnl except for VZV and Rubella NI Panorama low risk male Anatomy scan on 03/26/25: The biometry was consistent with the provided dating. No obvious abnormalities or markers of aneuploidy were noted. Circumvallate placenta vs uterine synechiae. Interval growth and follow up anatomy in 4 weeks. -->> Scheduled for 04/23/2025 Will get Tdap next visit 28 wk labs and serologies ordered Follow-up in 4 wks for PN [facility] 2025-04-08 14:33:22 Received Panorama results via fax. Stamped and will be scanned/uploaded into pt's chart. Mychart message sent. JANNA SOLIMAN RN 04/08/2025 2:34 PM Janna Soliman RN [facility] 2025-03-27 14:45:00 Images from the original note were not included. Venipuncture collection performed by clean technique on the left anticubitus. Total of 1 attempts were made. Slight pressure and a bandage/dressing were applied to the site(s). The patient experienced no complications. 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 LT BLUE SST 6 RED LAV 3 PPT DK GREEN (LiHep) DK GREEN (SodH) REYES DK BLUE (K2) DK BLUE (S) ACD Blood Culture NIPT/NTD Patient has been identified by and name and was provided with cup, antiseptic towelette, and clean catch instructions. 2 urine specimen(s) sent. Unpreserved 1 Urine Culture 1 Aptima tube Other urine [facility] 2025-03-26 15:37:30 Returned patients call. Patient identification verified by name and . Patient given results per provider. Patient verbalized understanding. Augusto Boyle RN 03/26/2025 3:37 PM Augusto Boyle RN [facility] 2025-03-26 15:12:40 Pt returning the call reg result. Pls call [phone] Marisel Bowers [facility] 2025-03-26 14:34:28 Attempted to contact patient. No answer, Vm left Augusto Boyle RN 03/26/2025 2:34 PM [facility] 2025-03-26 11:24:08 Images from the original note were not included. Copied from [facility] #[id number]. Topic: Clinical - Medical Advice >> Mar 26, 2025 11:23 AM Patient Hands Hanger wrote: Africa Larry is a 24 year old female Pt calling to f/up about the results. Pt was informed about the [employer] message. Pt states she does not have access to my chart. [facility] 2025-03-22 10:00:00 Age: [age] year old GA: 21w0d This is her initial visit to establish care. Just recently found out she is . Has been vaping intermittently but will stop. [facility] on 03/12/[facility]25. Release of records signed. Vaginal discharge - GC/CT and vag path collected - feminine hygiene discussed New OB labs today. No complaints. Discussed do's and don'ts of , safe foods, safe medications. Reviewed Zika virus precautions. I discussed the call schedule and that I might not be the physician delivering her. I discussed I deliver my patients at [facility]. Expectations for weight gain this include 15-25 pounds. Encouraged to call if have any additional questions or concerns. Discussed aneuploidy and carrier screening; patient opts for Panorama. Horizon neg. Discussed with patient that she can have HEALTHY support with her during her delivery (which is subject to change). Received flu vaccines today Anatomy scan ordered Next visit in 4 week [facility] 2025-03-19 08:28:06 Noted. Jo Lan RN [facility] 2025-03-18 13:12:19 Africa Larry is a 24 year old female New OB scheduled with Dr. Esparza on 03/22 LMP 10/26 No previous care Wendy Hwang [facility] 2024-07-28 14:51:27 Patient given discharge instructions mood disorder. Given prescriptions X 2 for abilify and lexapro. Advised to follow up with pcp. Pt left ER ambulatory, no signs of distress. LY LAW MEDIATOR Aubrie Zaman RN [facility] 2024-07-28 14:35:22 Pt reports getting out of [facility] long term where she was taking medicine for mental health. They upped her dosage while in there. She was released in has ran out of medication. States she does not have any thoughts of hurting herself or other. Requesting a refill for medications. LY LAW MEDIATOR Michaela Zurita RN [facility] 2024-07-28 14:26:00 [facility] Emergency Department Note Patient Name: Africa Larry Date of : 2000 24 year old female Treatment Room: [facility] JO[facility]/DL Primary Care Physician: Marley Valencia Patient Escorted [...] She reports she was recently released from [facility] long term and has an appointment to follow-up at [facility] for next month. She denies any suicidal or homicidal ideation. She reports she ran of her medications several days after being released from [facility]. No other complaints. Here for evaluation. Past [...] Lower 09/13/2017 Surgeon: Bereket Castelan MD; Location: [facility] DILATION OF CERVICAL CANAL 08/30/2017 INTRAUTERINE DEVICE REMOVAL N/A 05/13/2023 Surgeon: Kalina Haro MD; Location: [facility] OR [facility] LAPAROSCOPIC CHOLECYSTECTOMY N/A 03/01/2023 Surgeon: Mily Delgadillo MD; Location: [facility] OR [facility] LAPAROSCOPIC SALPINGECTOMY Left 05/13/2023 Surgeon: Kalina Haro MD; Location: [facility] OR [facility] Review of Systems: Review of Systems Constitutional: [...] She reports she was recently released from [facility] long term and has an appointment to follow-up at [facility] for next month. She denies any suicidal or homicidal ideation. She reports she ran of her medications several days after being released from [facility] long term. No other complaints. Vital signs are stable [...] signed by: Alyson Michel DO 07/28/24 1443 [facility] 2024-06-02 22:14:16 Pt given printed and verbal [...] in no apparent distress. EE Weaver RN [facility] 2024-06-02 20:47:08 Patient is not currently suicidal. Actively being treated for Bipolar disorder. Patient denied wanting to harm herself or others. EE Quinteros RN [facility] 2024-06-02 20:27:45 Report received from DIXIE Quinteros [facility] 2024-06-02 20:19:57 SAFE-T Protocol with C-SSRS (Coke Risk and Protective Factors) - Recent Step [...] there things, anyone or anything (e.g. family, buddhism, pain of ), that stopped you from [...] weeks. c. Consider developing a safety plan. [facility] 2024-06-02 19:09:55 CC: Bipolar, recent had a manic break for 4 days. Patient was released from long term today from [facility], they performed a mental health eval there prior to release. Patient denies SI/HI. Patient is prescribed Abilify, she hasn't taken it in 1 year, but resumed medication yesterday. EE Chacon RN [facility] 2023-09-05 09:47:55 Routing to [facility] pool to schedule pt. EE Cummings RN [facility] 2023-03-16 19:09:16 Formatting of this n ote might be different from the original. Please advise. Lety Roque MA [facility] 2023-03-13 17:05:13 Formatting of this n ote might be different from the original. Pt was seen in womens. [facility] 2023-03-01 09:28:00 Formatting of this [...] with endotracheal intubation was performed by the ROBOTIC WELDER without difficulty. Preoperative antibiotics were administered prior [...] blood products. Mily Delgadillo M.D. 03/01/2023 10:34 [facility] 2023-02-22 13:07:51 Formatting of this n ote might be different from the original. Images from the original note were not included. Your procedure is at [facility] on 03/01/23. The address is [address] [place] [address], [id number] [facility] nursing staff will call you the [...] voiced no further questions at this time. [facility] 2023-02-18 19:15:28 Formatting of this n ote might be different from the original. Marvin/Shade advising pt she would need to se [facility] or [facility] for evaluation. Unable to send refills. Bri Cummings RN [facility] 2023-02-03 08:30:00 Addended by: RADHA MENDOZA LVN on: 02/03/2023 09:49 AM Modules accepted: Orders Radha Mendoza LVN [facility]
[2025-04-25] MEDS ORDERED: ONDANSETRON 4 MG (ODT) TAB ONE (21:33)
[2025-04-25] MEDS ORDERED: FAMOTIDINE 20 MG TAB ONE (21:33)
--- NOTE | 2025-04-25 22:17 | ER ---
Nurse's Notes [facility] Name: Mckenzie Wang Age: 25 yrs Sex: Female : 2000 Arrival Date: 04/25/2025 Time: 20:59 Bed 14 Private MD: Diagnosis: Acute pharyngitis, unspecified Presentation: 04/25 21:11 Chief complaint: Patient states: ACID REFLUX BURNING THROAT X 2 DAYS WITH VOMITING dd2 TODAY. REPORTS 24 WEEKS . Coronavirus screen: At this time, the client does not indicate any symptoms associated with coronavirus-19. Ebola Screen: No symptoms or risks identified at this time. Initial Sepsis Screen: Does the patient meet any 2 criteria? No. Patient's initial sepsis screen is negative. Does the patient have a suspected source of infection? No. Patient's initial sepsis screen is negative. Risk Assessment: Do you want to hurt yourself or someone else? Patient reports no desire to harm self or others. Onset of symptoms was April 23, 2025. 21:11 Method Of Arrival: Ambulatory dd2 21:11 Acuity: ROSA 4 dd2 Triage Assessment: 21:13 General: Appears in no apparent distress. uncomfortable, Behavior is calm, cooperative, dd2 appropriate for age. Pain: Complains of pain in throat. EENT: Reports BURNING TO THROAT. GI: Reports indigestion. 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 - Infectious Disease History:: Denies. - Social history:: Smoking status: Patient denies any tobacco usage or history of. Screenin:27 [facility] ED Fall Risk Assessment (Adult) History of falling in the last 3 months, kt5 including since admission No falls in past 3 months (0 pts) Confusion or Disorientation No (0 pts) Intoxicated or Sedated No (0 pts) Impaired Gait No (0 pts) Mobility Assist Device Used No (0 pt) Altered Elimination No (0 pt) Score/Fall Risk Level 0 - 2 = Low Risk Oriented to surroundings, Maintained a safe environment. Abuse screen: Denies threats or abuse. Nutritional screening: No deficits noted. Tuberculosis screening: No symptoms or risk factors identified. Assessment: 21:27 General: Appears in no apparent distress. comfortable, Behavior is calm, cooperative, kt5 appropriate for age. Pain: Complains of pain in mouth, sore throat. Neuro: No deficits noted. Bloom Agitation-Sedation Scale (RASS): 0 - Alert and Calm Level of Consciousness is awake, alert, obeys commands, Oriented to person, place, time, situation, Appropriate for age. Cardiovascular: No deficits noted. Heart tones S1 S2 Capillary refill < 3 seconds Clubbing of nail beds is absent JVD is absent Pulses are all present. Edema is absent. Respiratory: Airway is patent Trachea midline Respiratory effort is even, unlabored, Respiratory pattern is regular, symmetrical, Breath sounds are clear bilaterally. GI: No deficits noted. Reports nausea, pt 24 weeks . : No deficits noted. No signs and/or symptoms were reported regarding the genitourinary system. EENT: Throat pt c/o of sore throat. Derm: No deficits noted. No signs and/or symptoms reported regarding the dermatologic system. Skin is intact, is healthy with good turgor, Skin is dry, Skin is pink, warm \T\ dry. Skin temperature is warm. Musculoskeletal: No deficits noted. No signs and/or symptoms reported regarding the musculoskeletal system. 21:54 General: FHT 144. kt5 22:15 Reassessment: Patient appears in no apparent distress at this time. Patient and/or kt5 family updated on plan of care and expected duration. Pain level reassessed. Patient is alert, oriented x 3, equal unlabored respirations, skin warm/dry/pink. Patient states symptoms have improved. Vital Signs: 21:11 BP 134 / 62; Pulse 75; Resp 17; Temp 98.4; Pulse Ox 100% on R/A; Weight 66.68 kg; dd2 Height 5 ft. 1 in. ; Pain 4/10; 22:15 BP 104 / 53; Pulse 70; Resp 18; Temp 98.3; Pulse Ox 100% ; Pain 3/10; kt5 21:11 Body Mass Index 27.78 (66.68 kg, 154.94 cm) dd2 21:11 Pain Scale: Adult dd2 22:15 Pain Scale: Adult kt5 ED Course: 21:01 Patient arrived in ED. mr 21:03 Page, Gio, PA-C is PHCP. cp 21:03 Ruben Kee DO is Attending Physician. cp 21:10 Carmelita Olvera, RN is Primary Nurse. kt5 21:13 Triage completed. dd2 21:13 Arm band placed on right wrist. dd2 21:27 Patient has correct armband on for positive identification. Bed in low position. Call kt5 light in reach. Side rails up X 1. Client placed on continuous cardiac and pulse oximetry monitoring. NIBP monitoring applied. Door closed. Noise minimized. Pillow given. 21:27 No provider procedures requiring assistance completed. kt5 21:39 Group A Streptococcus Rapid Sent. kt5 22:27 Provided Education on: FOLLOW UP AND MEDS. kt5 Administered Medications: 21:38 Drug: Famotidine PO 20 mg PO once Route: PO; kt5 22:29 Follow up: Response: No adverse reaction kt5 21:38 Drug: Ondansetron PO 4 mg PO once Route: PO; kt5 22:28 Follow up: Response: No adverse reaction; Nausea is decreased kt5 Medication: 21:27 VIS not applicable for this client. kt5 Outcome: 22:16 Discharge ordered by MD. cp 22:27 Discharged to home ambulatory, kt5 22:27 Condition: stable 22:27 Discharge instructions given to patient, Instructed on discharge instructions, follow up and referral plans. Demonstrated understanding of instructions, follow-up care, medications, Prescriptions given X 3, 22:40 Patient left the ED. kt5 Signatures: Caro Kraft, Reg Reg mr Gio Molina PA-C PA-C cp DAVIS, DIANA RN RN dd2 Carmelita Olvera, RN RN kt5 Corrections: (The following items were deleted from the chart) 22:28 22:15 BP 104 / 53; Pulse 70bpm; Resp 18bpm; Pulse Ox 100%; kt5 kt5
--- NOTE | 2025-04-25 22:17 | EDPHYS ---
Physician Documentation [facility] Name: Mckenzie Wang Age: 25 yrs Sex: Female : 2000 Arrival Date: 04/25/2025 Time: 20:59 Bed 14 Private MD: ED Physician Ruben Kee HPI: 04/25 21:30 This 25 yrs old Female presents to ER via Ambulatory with complaints of Sore Throat. cp 21:30 The patient presents with sore throat. The patient describes throat pain as burning. cp 21:30 Onset: The symptoms/episode began/occurred 2 day(s) ago. cp 21:30 Severity of symptoms: in the emergency department the symptoms cough, fever. Associated cp signs and symptoms: Pertinent positives: nausea, vomiting, Pertinent negatives cough, diarrhea, active vomiting. 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 - Infectious Disease History:: Denies. - Social history:: Smoking status: Patient denies any tobacco usage or history of. ROS: 21:33 Constitutional: Negative for body aches, chills, fever, poor PO intake, cp 21:33 Eyes: Negative for injury, pain, redness, and discharge, cp 21:33 ENT: Positive for sore throat, Negative for drainage from ear(s), ear pain, difficulty swallowing, difficulty handling secretions, 21:33 Respiratory: Negative for cough, shortness of breath, wheezing, 21:33 Abdomen/GI: Positive for nausea and vomiting, Negative for abdominal pain, diarrhea, constipation, 21:33 : Negative for urinary symptoms, vaginal bleeding, 21:33 Neuro: Negative for altered mental status, headache, weakness, 21:33 All other systems are negative, Exam: 21:35 Constitutional: The patient appears in no acute distress, alert, awake, non-toxic, well cp developed, well nourished, 21:35 Head/Face: Normocephalic, atraumatic. cp 21:35 Eyes: Periorbital structures: appear normal, Conjunctiva: normal, no exudate, no injection, Sclera: no appreciated abnormality, Lids and lashes: appear normal, bilaterally, 21:35 ENT: External ear(s): are unremarkable, Ear canal(s): are normal, clear, TM's: dullness, bilaterally, Nose: is normal, Mouth: Lips: moist, Oral mucosa: moist, Posterior pharynx: Airway: no evidence of obstruction, patent, Tonsils: with erythema, no exudate, Uvula: midline, erythema, that is moderate, exudate, is not appreciated, 21:35 Neck: ROM/movement: Meningeal signs: are not present, 21:35 Chest/axilla: Inspection: normal, 21:35 Cardiovascular: Rate: normal, Rhythm: regular, 21:35 Respiratory: the patient does not display signs of respiratory distress, Respirations: normal, no use of accessory muscles, no retractions, labored breathing, is not present, Breath sounds: are clear throughout, no decreased breath sounds, no stridor, no wheezing, 21:35 Abdomen/GI: Inspection: gravid appearance, is noted, Palpation: abdomen is soft and non-tender, in all quadrants, Vital Signs: 21:11 BP 134 / 62; Pulse 75; Resp 17; Temp 98.4; Pulse Ox 100% on R/A; Weight 66.68 kg; dd2 Height 5 ft. 1 in. ; Pain 4/10; 22:15 BP 104 / 53; Pulse 70; Resp 18; Temp 98.3; Pulse Ox 100% ; Pain 3/10; kt5 21:11 Body Mass Index 27.78 (66.68 kg, 154.94 cm) dd2 21:11 Pain Scale: Adult dd2 22:15 Pain Scale: Adult kt5 MDM: 21:03 Medical Screening Exam initiated 21:45 Differential diagnosis: apthous stomatitis, apthous ulcer, gingivostomatitis, group A cp strep tonsillitis, influenza, laryngitis, evangelist's angina, peritonsillar abscess retropharyngeal abcess. 22:15 Data reviewed: vital signs, nurses notes, lab test result(s), and as a result, I will cp discharge patient. 22:15 I considered the following discharge prescriptions or medication management in the emergency department Medications were administered in the Emergency Department. See MAR. Counseling: I had a detailed discussion with the patient and/or guardian regarding the historical points, exam findings, and any diagnostic results supporting the discharge/admit diagnosis, lab results, to return to the emergency department if symptoms worsen or persist or if there are any questions or concerns that arise at home. Response to treatment: the patient's symptoms have mildly improved after treatment, and as a result, I will discharge patient. 04/25 21:24 Order name: Group A Streptococcus Rapid cp 04/25 22:17 Order name: Throat Culture EDSD 04/25 21:24 Order name: FHT's; Complete Time: 21:54 cp Administered Medications: 21:38 Drug: Famotidine PO 20 mg PO once Route: PO; kt5 22:29 Follow up: Response: No adverse reaction kt5 21:38 Drug: Ondansetron PO 4 mg PO once Route: PO; kt5 22:28 Follow up: Response: No adverse reaction; Nausea is decreased kt5 Disposition Summary: 04/25/25 22:16 Discharge Ordered Notes: Location: Home cp Problem: new cp Symptoms: have improved cp Condition: Stable cp Diagnosis - Acute pharyngitis, unspecified cp Followup: cp - With: Private Physician - When: 2 - 3 days - Reason: Worsening of condition Discharge Instructions: - Discharge Summary Sheet cp - Food Choices for Gastroesophageal Reflux Disease, Adult cp - Gastroesophageal Reflux Disease, Adult cp - Pharyngitis cp - Sore Throat cp Forms: - Medication Reconciliation Form cp - Antibiotic Education cp - Prescription Opioid Use cp - Patient Portal Instructions cp - Leadership Thank You Letter cp - Work release form [email or web address] Prescriptions: - Amoxicillin 875 mg Oral Tablet - take 1 tablet ORAL route every 12 hours for 10 days; 20 tablet; Refills: 0, cp Product Selection Permitted - Pepcid 20 mg Oral Tablet - take 1 tablet ORAL route every 12 hours for 10 days; 20 tablet; Refills: 0, cp Product Selection Permitted - Reglan 10 mg Oral Tablet - take 1 tablet ORAL route every 6 hours take 30 minutes before meals and at cp bedtime; 20 tablet; Refills: 0, Product Selection Permitted Addendum: 04/29/2025 17:52 Co-signature as Attending Physician, Ruben Kee DO I reviewed the patient's care t t7 provided by the Advanced Practice Provider and agree with the diagnosis and treatment plan. Signatures: Dispatcher [facility] Gio Molina PA-C PA-C VERONA Simmons RN RN dd2 Carmelita Olvera RN RN kt5 Ruben Kee DO DO tt7 Corrections: (The following items were deleted from the chart) 04/25 21:24 21:24 Group A Streptococcus Rapid [id number] ordered. EDMS EDMS 04/26 14:15 04/25 21:30 The patient describes throat pain as constant, cp cp
[2025-04-25 22:45] VITALS: O2SAT 100
[2025-04-25 22:47] VITALS: BP 104/53; TEMP 98.3
== END 2025-04-25 22:40 | disposition home or self-care (01) ==
LOC: ER 20:59
DX: J02.9 Acute pharyngitis, unspecified (principal); R11.2 Nausea with vomiting, unspecified
CPT/HCPCS: 87070; 36415; 99284; Q0162